=== PATIENT | male | born 1950 | race Caucasian/White ===

== ENCOUNTER → 2017-02-01 | Outpatient (CLI) | payer BC ==
[~2017-02-01] MED LIST: ATV/1 PO; COLC0.6T54 PO; FRS/40 PO; HYDR-4332 PO; INSDGIPEN SQ; MCRK/10 PO; METO50TA7 PO; NAPR220T40 PO; PRED10PA3 PO; TAMS0.4C38 PO
--- NOTE | 2017-02-01 11:41 | DIAGNOSTIC IMAGING REPORT ---
ABDOMEN ULTRASOUND FOR HERNIA CLINICAL HISTORY: R10.30 Groin pain R/o left inguinal hernia- left groin [id number] COMPARISON STUDY: None. FINDINGS: Real-time sonographic imaging of the left groin was performed with policy services representative images submitted. Small fat-containing left inguinal hernia which is partially reducible. No masses or fluid collections within the left groin. IMPRESSION: A partially reducible small fat-containing left inguinal hernia. Electronically signed by: Antony West M.D. 02/01/2017 11:40 AM Dictated Date/Time: 02/01/2017 11:39 AM
== END | disposition home or self-care (01) ==
LOC: C.ULTRBC 11:05
PROVIDERS: ATTEND Surgery
DX: K40.90 Unilateral inguinal hernia, without obstruction or gangrene, not specified as recurrent (principal); R10.30 Lower abdominal pain, unspecified

== ENCOUNTER 2017-03-01 06:30 | Inpatient (IN) | payer BC ==
[2017-02-10 08:31] VITALS: BMI 44.0
--- NOTE | 2017-02-10 09:12 | PAT Medication Instructions ---
Service Date Feb 10, 2017. Current Home Medication List Atorvastatin (Lipitor), 10 MG PO QAM Folic Acid (Folvite), 1 TAB PO QAM Hydrocodone-Acetaminophen (LORTAB 10-325 mg), 1 TAB PO Q6 PRN for Pain Lisinopril (Lisinopril), 1 TAB PO QAM Lorazepam (Ativan), 1 MG PO Q12 PRN for Anxiety/Insomnia Metoprolol Succ (Toprol Xl) (Toprol-Xl), 50 MG PO QAM Naproxen Sodium (Aleve), 220 MG PO DIRECTED Pregabalin (Lyrica), 25 MG PO TID Sitagliptin Phosphate (Januvia), 100 MG PO QAM Tamsulosin Hcl (Flomax), 0.4 MG PO QAM Medication Instructions For Your Scheduled Surgery - Check with surgeon for instructions: Naproxen Sodium (Aleve), 220 MG PO DIRECTED - Hold the following medications the morning of surgery: Folic Acid (Folvite), 1 TAB PO QAM Lisinopril (Lisinopril), 1 TAB PO QAM Sitagliptin Phosphate (Januvia), 100 MG PO QAM Tamsulosin Hcl (Flomax), 0.4 MG PO QAM - Take the following medications the morning of surgery with a sip of water: Pregabalin (Lyrica), 25 MG PO TID Metoprolol Succ (Toprol Xl) (Toprol-Xl), 50 MG PO QAM Lorazepam (Ativan), 1 MG PO Q12 PRN for Anxiety/Insomnia (if needed) Hydrocodone-Acetaminophen (LORTAB 10-325 mg), 1 TAB PO Q6 PRN for Pain (okay to take up to 4 hours prior to surgery if needed) Atorvastatin (Lipitor), 10 MG PO QAM - Take the following medications as scheduled the night before surgery: Pregabalin (Lyrica), 25 MG PO TID Lorazepam (Ativan), 1 MG PO Q12 PRN for Anxiety/Insomnia (if needed) If you have any questions please call us at [phone] or [phone] or [phone]
[2017-02-10 10:02] LABS: BASO % 0.5 %; BASO ABS # 0.02 K/uL (0-0.2); EOS % 1.8 %; EOS ABS # 0.07 K/uL (0-0.5); HEMATOCRIT 32.9 % (42-52); IG# 0.02 K/uL (0.00-0.02); LYMPH % 25.4 %; LYMPH ABS # 0.99 K/uL (1.2-3.4); MEAN CELL VOLUME 99.7 fL (80-100); MEAN CORPUSCULAR HEMOGLOBIN 33.3 pg (25-34); MEAN CORPUSCULAR HGB CONC 33.4 g/dl (32-36); MEAN PLATELET VOLUME 8.4 fL (7.4-10.4); MONO ABS # 0.39 K/uL (0.11-0.59); NEUT % 61.8 %; NEUT ABS # 2.41 K/uL (1.4-6.5); PLATELET COUNT 134 K/uL (130-400); RED CELL DISTRIBUTION WIDTH SD 50.7 fL (36.4-46.3)
[2017-02-10 10:08] LABS: PTT PATIENT 27.7 SECONDS (21.0-31.0)
[2017-02-10 10:29] LABS: CALCIUM 9.1 mg/dl (8.5-10.1); CREATININE 1.57 mg/dl (0.60-1.40); POTASSIUM 5.7 mmol/L (3.5-5.1)
[2017-02-10 10:31] LABS: ALBUMIN 3.2 gm/dl (3.4-5.0); ALKALINE PHOSPHATASE 106 U/L (45-117); ALT/SGPT 83 U/L (12-78); AST/SGOT 71 U/L (15-37); TOTAL PROTEIN 6.4 gm/dl (6.4-8.2)
--- NOTE | 2017-02-28 17:41 | HISTORY & PHYSICAL EXAMINATION ---
DATE OF ADMISSION: 03/01/2017 HISTORY AND PHYSICAL ADMISSION NOTE CHIEF COMPLAINT: Primary osteoarthritis of the left hip. HISTORY OF PRESENT ILLNESS: Martin is a very pleasant 66-year-old male who previously had back surgery by Dr. Díaz and is doing well from that, but now has significant groin pain. He is having a difficult time ambulating. He has missed extensive amount of work due to the discomfort he has in his hip. 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 He is very sharp stabbing sensation deep within his groin. X-rays and clinical examination have been diagnostic for primary osteoarthritis of the left hip. After failing extensive conservative treatment, he has elected to proceed with a left total hip arthroplasty. PAST MEDICAL HISTORY: Significant for non-insulin dependent diabetes, hypertension, sleep apnea and depression, osteoarthritis, and obesity. PAST SURGICAL HISTORY: Significant for a lumbar procedure, carpal tunnels release, and surgery to his knee. ALLERGIES: None. MEDICATIONS: Include Lyrica 20 mg 3 times a day, Januvia daily, metoprolol daily for blood pressure, lisinopril 5 mg daily, Lipitor daily, Ativan 2 times a day, hydrocodone 10/325 as needed, and Flomax daily. FAMILY HISTORY: Noncontributory. SOCIAL HISTORY: He is , has 3 or more drinks a day, has a 10-year history of a half pack a day. He is mostly sedentary. REVIEW OF SYSTEMS: He complains of left hip and groin pain. All other pertinent review of systems is negative. PHYSICAL EXAMINATION: GENERAL: He is awake, alert and oriented x3. He is in no apparent distress. He is very pleasant. HEENT: Pupils equal, round and reactive to light. Extraocular motions intact. Oral mucosa is pink and moist. HEART: Regular rate per radial pulse. LUNGS: Coleen symmetrically bilaterally with no audible breath sounds. ABDOMEN: Soft, nontender, nondistended. MUSCULOSKELETAL: On physical examination of left hip, he ambulates via cane in the office. He does have a mild limp. He has significant pain with forced internal and external rotation of his hip. He has no tenderness to palpation over the greater trochanteric bursa. His leg lengths are equal. IMAGING DATA: X-rays of the left hip do show advanced osteoarthritis with joint space narrowing and osteophyte formation. IMPRESSION: Advanced osteoarthritis of the left hip. PLAN: Will proceed with a Biomet taper lock left total hip arthroplasty. Postoperatively, he will be started on aspirin for DVT prophylaxis and kept in the hospital for postoperative medical management.
[2017-03-01] VITALS (43 sets, daily range): BP systolic 78–203; BP diastolic 53–114; PULSE 57–109; TEMP 36.7–37.5; O2SAT 89–100; Ht 185.4 cm; Wt 151.8 kg
[~2017-03-01] VITALS: Ht 185.4 cm; Wt 151.8 kg
[~2017-03-01 06:30] MED LIST changes: +ACETAMINOPHEN 500 MG TAB PO SCH; +ATOR10TA82 PO; +CEFAZOLIN 3000MG IV PUSH 15 ML IV SCH; -COLC0.6T54 PO; +FAMOTIDINE 20 MG TAB PO SCH; +FOLI1TAB8 PO; -FRS/40 PO; +GABAPENTIN 300 MG CAP PO SCH; -INSDGIPEN SQ; +LACTATED RINGER'S 1000ML 1,000 ML IV SCH; +LACTATED RINGER'S 1000ML 500 ML IV ONE; +LACTATED RINGER'S 1000ML IV SCH; +LSN5 PO; -MCRK/10 PO; -PRED10PA3 PO; +PREG1CAP36 PO; +SITA100T3 PO
[2017-03-01] MEDS ORDERED: BUPIVACAINE 0.5 % 5 MG/1 ML PF 10ML VIAL ONE (06:31)
--- NOTE | 2017-03-01 06:58 | History & Physical Bridge Note ---
H&P Re-Evaluation Bridge Note: I have examined the patient, reviewed the History & Physical and in the interval since the performance of the History & Physical I have noted the following changes of clinical significance: No changes noted
[2017-03-01] MEDS ORDERED: AMIODARONE HCL INJ 50 MG/ML 3 ML VIAL IV ONE (07:21)
[2017-03-01] MEDS ORDERED: DEXTROSE 5% 100 ML BAG IV ONE (07:21)
[2017-03-01] MEDS ORDERED: FENTANYL CITRATE INJ 50 MCG/1 ML 2 ML VIAL ONE ×2 (07:32→14:47)
[2017-03-01] MEDS ORDERED: MIDAZOLAM HCL 1 MG/ML 2ML VIAL ONE ×4 (07:32→14:47)
[2017-03-01] MEDS ORDERED: HYDROmorphone INJ 2 MG/ML SYR/VIAL IV PRN ×2 (08:00)
[2017-03-01] MEDS ORDERED: EpHEDrine SULFATE INJ 50 MG/ML AMP IV PRN ×2 (08:00)
[2017-03-01] MEDS ORDERED: ATROPINE SULFATE 0.1 MG/ML 5ML SYR IV PRN ×2 (08:00)
[2017-03-01] MEDS ORDERED: ONDANSETRON INJ 2 MG/ML 2 ML VIAL IV PRN ×2 (08:00)
[2017-03-01] MEDS ORDERED: PHENYLEPHRINE 100MCG/ML 5ML SYR IV PRN ×2 (08:00)
[2017-03-01] MEDS ORDERED: PROPOFOL IV EMULSION 10 MG/ML 20 ML VIAL IV ONE (08:40)
[2017-03-01] MEDS: TRANEXAMIC ACID INJ 1,000 MG in SYRINGE 0 ML IV SCH ×2 (08:41→16:07)
[2017-03-01] MEDS ORDERED: KETAMINE HCL INJ 50 MG/ML 10 ML VIAL ONE (09:42)
[2017-03-01] MEDS ORDERED: ONDANSETRON INJ 2 MG/ML 2 ML VIAL ONE (09:50)
[2017-03-01] MEDS: ROPIVACAINE 5MG/ML 30 ML 150 MG, BUPIVACAINE 0.5% MPF INJ 30 ML, EpINEphrine HCL INJ 0.... INFIL SCH ×16 (09:57→10:30)
[2017-03-01] MEDS: BACITRACIN 50000 UNIT VIAL ONE ×2 (09:57→10:30)
[2017-03-01] MEDS: ORTHO JOINT ANESTHETIC ONE ×2 (09:57→10:30)
[2017-03-01] MEDS ORDERED: GLYCOPYRROLATE INJ 0.2 MG/ML VIAL ONE (10:36)
[2017-03-01] MEDS ORDERED: RAPID SEQUENCE INDUCTION BAG ONE (10:57)
[2017-03-01] MEDS ORDERED: MIDAZOLAM HCL 5 MG/ML 1 ML VIAL ONE (10:57)
--- NOTE | 2017-03-01 11:39 | OPERATIVE REPORT ---
DATE OF OPERATION: 03/01/2017 PREOPERATIVE DIAGNOSIS: Primary osteoarthritis of the left hip. POSTOPERATIVE DIAGNOSIS: Primary osteoarthritis of the left hip with intraoperative cardiopulmonary event. PROCEDURE: Left total hip arthroplasty; however, the head was removed and the acetabulum was reamed when he went had a cardiopulmonary event and we had to close the wound. SURGEON: Dr. Arian Dee. MANAGED SECURITY SALES CONSULTANT: Kasi Ruiz PA-C, whose assistance was necessary for retraction. ANESTHESIA: Spinal, that was later converted to intubation. COMPLICATIONS: cardiopulmonary event ESTIMATED BLOOD LOSS: Was about 50-100 mL. INDICATIONS: Martin is a 66-year-old male who presented to my office with chronic left hip and groin pain. X-rays and clinical examination were diagnostic for primary osteoarthritis of the left hip. After failing conservative treatment, he elected to undergo a left total hip arthroplasty. OPERATION AND FINDINGS: On 03/01/2017 he arrived at [facility] for the above procedure. He was seen in the preoperative holding area and the operative extremity was identified and signed. He was given a preoperative antibiotic and a spinal anesthetic. He was taken back to the operating room, laid on the table in supine position, given basic sedation. The left hip was then brought out to a Purist leg positioner. The left hip was then prepped and draped in sterile fashion. Time-out was done and the patient and operative extremity was properly identified. An anterior approach was used. Dissection was taken down through the fascia and the tensor was retracted laterally. The rectus was retracted medially. The circumflex vessels were ligated. The capsule was then incised and tagged for later repair. The femoral neck was then resected and the femoral head was removed. The acetabulum was exposed. Sequential reaming up to a size 55 reamer was done. I was getting ready to open the acetabular cup when anesthesia asked me to stop that they were having difficulties. The incision was packed and the drapes were pulled back. He was in ventricular fibrillation. CPR was initiated and he was shocked 3 times. Anesthesia was using epinephrine and other medications to help him. They were able to get him into a more stable rhythm. He was also intubated. Decision was made to abandon the hip replacement surgery and the incision was closed with yannick. Soft dressing was placed. He was then transferred to a bed, a 12-lead EKG was obtained. He was then taken to the ICU. I then spoke with the family with the delivery helper and let them know what was going on. Hopefully, we can place the hip when he is more stable. I attest to the content of the Intraoperative Record and any orders documented therein. Any exceptions are noted below. FRANCHESCA
[2017-03-01] MEDS ORDERED: MIDAZOLAM 125MG/250ML D5W IV ONE (11:42)
[2017-03-01] MEDS ORDERED: FENTANYL CITRATE 1250MCG/250ML NSS ONE (11:44)
[2017-03-01] MEDS ORDERED: GLUCOSE 40% GEL 15 GM TUBE PO PRN ×2 (12:00→13:30)
[2017-03-01] MEDS ORDERED: LEVALBUTEROL 1.25MG/3ML NEB INH PRN (12:00)
[2017-03-01] MEDS ORDERED: DEXTROSE 50% 50 ML SYR IV PRN ×2 (12:00→13:30)
[2017-03-01] MEDS ORDERED: GLUCOSE 10 TABS/TUBE PO PRN ×2 (12:00→13:30)
[2017-03-01] MEDS ORDERED: GLUCAGON FOR INJ 1 MG VIAL SQ PRN ×2 (12:00→13:30)
[2017-03-01] MEDS ORDERED: NORMOSOL R 1,000 ML IV ONE (12:00)
[2017-03-01 12:20] LABS: BASO % 0.1 %; BASO ABS # 0.01 K/uL (0-0.2); EOS % 0.9 %; EOS ABS # 0.07 K/uL (0-0.5); HEMATOCRIT 33.6 % (42-52); HEMOGLOBIN 11.2 g/dL (14.0-18.0); IG# 0.08 K/uL (0.00-0.02); LYMPH % 11.4 %; LYMPH ABS # 0.88 K/uL (1.2-3.4); MEAN CORPUSCULAR HEMOGLOBIN 33.3 pg (25-34); MEAN PLATELET VOLUME 8.7 fL (7.4-10.4); MONO % 7.4 %; MONO ABS # 0.57 K/uL (0.11-0.59); NEUT % 79.2 %; NEUT ABS # 6.14 K/uL (1.4-6.5); PLATELET COUNT 170 K/uL (130-400); RED CELL DISTRIBUTION WIDTH CV 13.6 % (11.5-14.5); RED CELL DISTRIBUTION WIDTH SD 49.1 fL (36.4-46.3); WHITE BLOOD COUNT 7.75 K/uL (4.8-10.8)
[2017-03-01 12:24] LABS: MEAN CORPUSCULAR HGB CONC 33.3 g/dl (32-36)
[2017-03-01 12:29] LABS: PTT PATIENT 25.7 SECONDS (21.0-31.0)
[2017-03-01] MEDS ORDERED: PHARMACY GLYCEMIC MGMT CONSULT PRN (12:30)
--- NOTE | 2017-03-01 12:45 | Critical Care Consultation ---
Critical Care Consultation Date of Consultation: Mar 01, 2017. Attending Physician: Arian Dee DO Reason for Consultation: Cardiac Arrest History of Present Illness Called to the OR for cardiac arrest. Was undergoing left DANY and subsequently suffered an arrest. CPR was started. He was intubated. Given several does of epinephrine and defibrillated. 300mg of Amiodarone was given. A sinus rhythm with a RBBB with review of the telemetry. No acute ischemia suggested with the initial EKG. The procedure was aborted with the wound closed. The femoral head has been removed and the procedure not completed. He was transferred to the ICU for additional care. He is sedated and intubated. The records available have been reviewed. Underlying issues noted. Past Medical/Surgical History -Pseudogout -DM -Morbid Obesity -HTN Tobacco Abuse -Alcohol Abuse--1/2 bottle rum daily reported -Routine Narcotic Use-- Social History Smoking Status: Current Every Day Smoker Allergies Coded Allergies: No Known Allergies (Verified , 03/01/17) Home Medications Scheduled Atorvastatin (Lipitor), 10 MG PO QAM Folic Acid (Folvite), 1 TAB PO QAM Metoprolol Succ (Toprol Xl) (Toprol-Xl), 50 MG PO QAM Naproxen Sodium (Aleve), 220 MG PO DIRECTED Pregabalin (Lyrica), 25 MG PO TID Sitagliptin Phosphate (Januvia), 100 MG PO QAM Tamsulosin Hcl (Flomax), 0.4 MG PO QAM Scheduled PRN Hydrocodone-Acetaminophen (LORTAB 10-325 mg), 1 TAB PO Q6 PRN for Pain Lorazepam (Ativan), 1 MG PO Q12 PRN for Anxiety/Insomnia Current Inpatient Medications Current Inpatient Medications Medications (Trade) Dose Ordered Sig/Sujey Route Start Time Stop Time Status Last Admin Dose Admin Ropivacaine 150 mg/Bupivacaine HCl 30 ml/ Epinephrine HCl 0.15 mg/Ketorolac Tromethamine 30 mg/Dexamethasone Sodium Phosphate 4 mg/Ketamine HCl 10 mg/Clonidine 100 mcg/Sodium Chloride 93.35 ml @ 0 mls/hr TODAY@06 INFIL 03/01/17 06:00 03/01/17 15:00 Lactated Ringer's 1,000 ml @ 60 mls/hr [id number] IV 03/01/17 06:00 03/01/17 22:39 Cefazolin Sodium 15 ml @ 3 mls/min PREOP IV 03/01/17 06:00 03/01/17 18:00 03/01/17 09:19 3 MLS/MIN Acetaminophen (Tylenol Tab) 1,000 mg PREOP PO 03/01/17 06:00 03/01/17 18:00 03/01/17 07:08 1,000 MG Famotidine (Pepcid Tab) 20 mg PREOP PO 03/01/17 06:00 03/01/17 18:00 03/01/17 07:08 20 MG Gabapentin (Neurontin Cap) 600 mg PREOP PO 03/01/17 06:00 03/01/17 18:00 Tranexamic Acid 1000 mg/Syringe 10 ml @ 1 mls/min TODAY@06,0630 IV 03/01/17 06:00 03/01/17 15:00 03/01/17 08:41 1 MLS/MIN Lactated Ringer's 1,000 ml @ 15 mls/hr Q24H IV 03/01/17 06:00 03/02/17 05:59 Hydromorphone HCl (Dilaudid Inj) 0.5 mg Q5M PRN IV 03/01/17 08:00 03/01/17 13:00 Ondansetron HCl (Zofran Inj) 4 mg ONE PRN IV 03/01/17 08:00 03/01/17 13:00 Ephedrine Sulfate (EpHEDrine SULFATE INJ) 5 mg Q5M PRN IV 03/01/17 08:00 03/01/17 13:00 Atropine Sulfate (Atropine Sulfate 0.1MG/Ml Inj) 0.5 mg Q1M PRN IV 03/01/17 08:00 03/01/17 13:00 Phenylephrine HCl (Chan-Synephrine 500MCG/5ML Syr) 100 mcg Q5M PRN IV 03/01/17 08:00 03/01/17 13:00 Midazolam HCl 250 ml @ 0 mls/hr Q0M PRN IV 03/01/17 11:44 03/31/17 11:43 Fentanyl Citrate 250 ml @ 0 mls/hr Q0M PRN IV 03/01/17 11:45 03/15/17 11:44 Parenteral Electrolyte Solution 1,000 ml @ 999 mls/hr Q1H1M ONCE IV 03/01/17 12:00 03/01/17 13:00 Levalbuterol (Xopenex 1.25MG/ 3ML Neb) 1.25 mg Q4 PRN INH 03/01/17 12:00 03/31/17 11:59 UNV Pantoprazole Sodium 40 mg/ Syringe 10 ml @ 5 mls/min DAILY IV 03/02/17 09:00 04/01/17 08:59 UNV Glucose (Glucose 40% Gel) 15-30 GRAMS 15 GRAMS... UD PRN PO 03/01/17 12:00 03/31/17 11:59 UNV Glucose (Glucose Chew Tab) 4-8 Tablets 4 Tabl... UD PRN PO 03/01/17 12:00 03/31/17 11:59 UNV Dextrose (Dextrose 50% 50ML Syringe) 25-50ML OF 50% DW IV FOR... UD PRN IV 03/01/17 12:00 03/31/17 11:59 UNV Glucagon (Glucagon Inj) 1 mg UD PRN SQ 03/01/17 12:00 03/31/17 11:59 UNV Miscellaneous Information (Consult Glycemic Management Pharmacy) 1 ea NOW STAT N/A 03/01/17 11:59 03/01/17 12:00 UNV Review of Systems unavailable given his sedation/arrest Physical Exam Date Time Temp Pulse Resp B/P (MAP) Pulse Ox O2 Delivery O2 Flow Rate FiO2 03/01/17 10:50 100 03/01/17 07:15 36.9 89 20 178/79 97 Room Air Morbidly Obese Man with ETT and Left Hip Surgical Wound--starting to arouse and move all ext. HEENT--no acute findings suggested Respiratory--exchange is ok Cardio--palpable pulse in neck and femoral positions--heart tones distant GI- active --Garcia place to gravity after the ICU admit Musculo---as noted regarding the left femur Neuro--moving all ext Derm--no active pathology suggested Psych--no obtainable + Laboratory Results Last 24 Hours Test 03/01/17 06:55 03/01/17 11:47 03/01/17 12:03 Bedside Glucose 179 mg/dl Creatine Kinase MB Ratio Diagnostic Results Echo/Doppler/Labs/CXR all pending Assessment & Plan Obesity/DM/HTN/Hyperlipidemia/Arthritis/ETOH/Tobacco/--DANY with intraoperative arrest..Consideration includes fat embolism, ischemia,arrhythmia. 1. Cardio--will obtain appropriate studies and cardiology assistance. Beta vega and appropriate supportive measures. I/O's. 2. Pulmonary--vent support--longstanding tobacco use noted. 3. Neuro--will require sedation during ventilation--moving all ext and somewhat combative. 4. GI--OG tube 5. F/E/N--will optimize labs and fluid status 6. Musculoskeletal--will talk with anesthesia and orthopedics regarding timing of completion of the procedure. 7. Endo--insulin and general supportive measures. -
[2017-03-01 12:49] LABS: CALCIUM 8.8 mg/dl (8.5-10.1); CREATININE 1.37 mg/dl (0.60-1.40); POTASSIUM 4.9 mmol/L (3.5-5.1)
[2017-03-01 12:53] LABS: ALBUMIN 2.8 gm/dl (3.4-5.0); CALCIUM 8.4 mg/dl (8.5-10.1); CREATININE 1.35 mg/dl (0.60-1.40); POTASSIUM 4.9 mmol/L (3.5-5.1)
[2017-03-01 12:55] LABS: TOTAL PROTEIN 6.2 gm/dl (6.4-8.2)
[2017-03-01] MEDS ORDERED: DexMEDEtomidine HCL IV 200 MCG in SODIUM CHLORIDE 0.9% 50ML 48 ML IV PRN (13:07)
[2017-03-01] MEDS ORDERED: METOPROLOL TARTRATE 1 MG/ML VIAL ONE ×2 (13:28→14:31)
[2017-03-01] MEDS ORDERED: INSULIN GLARGINE SOLOSTAR 100 UNITS/ML 3 ML PEN SC ONE (13:30)
[2017-03-01] MEDS ORDERED: INSULIN HUMAN REGULAR PER UNIT 6 UNITS in SYRINGE 5.94 ML IV ONE (13:30)
--- NOTE | 2017-03-01 14:01 | ECHOCARDIOGRAM REPORT ---
*NOTICE TO RECEIVING [employer] This information is strictly Confidential and protected under [place] law. [place] law prohibits you from making any further disclosure of this information unless further disclosure is expressly permitted by the written consent of the person to whom it pertains or is authorized by law. A general authorization for the release of medical or other information is not sufficient for this purpose. Hospital accepts no responsibility if the information is made available to any other person, INCLUDING THE PATIENT. Interpretation Summary * Name: SLY POOLE Study Date: 03/01/2017 12:06 PM BP: 92/59 mmHg * Patient Location: .MSICU\S\E112\S\1 HR: 85 * : 1950 (M/d/yyy) Gender: Male Height: 71 in * Age: 66 yrs Ethnicity: CA Weight: 335 lb * Ordering Physician: Raghavendra Hensley * Referring Physician: Arian Dee * Performed By: Nadeen Cevallos RCS * * Reason For Study: Pulm. HTN * BSA: 2.6 m2 * -- Conclusions -- * The left ventricle is normal in size. * There is mild concentric left ventricular hypertrophy. * No regional wall motion abnormalities noted. * Ejection Fraction = 65-70%. * The study was technically difficult. * A contrast injection of Definity was performed to improve assessment of LV function. * Aortic valve sclerosis mild, without significant aortic valvular stenosis. * There is trace tricuspid regurgitation. * Right ventricular systolic pressure is elevated at 50-60mmHg. Procedure Details * A complete two-dimensional transthoracic echocardiogram was performed (2D, M-mode, Doppler and color flow Doppler). * The study was technically difficult. * There were technical limitations due to patient'ssupine positioning while on mechanical ventilation * A contrast injection of Definity was performed to improve assessment of LV function. * A contrast injection of Definity was performed to improve assessment for apical thrombus. * Contrast was injected into an intravenous site in the central line. * One vial of Definity ultrasound contrast was diluted in normal saline to a total volume of 10 ml. A total of '1' ml of solution was administered during imaging. * Lot # [id number] of Definity utilized for procedure. * Expiration date 1DEC18. * The attending nurse who injected the contrast agent was Angie Presley RN. Left Ventricle * The left ventricle is normal in size. * There is mild concentric left ventricular hypertrophy. * Ejection Fraction = 65-70%. * No regional wall motion abnormalities noted. Right Ventricle * The right ventricle is grossly normal size. Atria * Borderline left atrial enlargement. * Right atrial size is normal. Mitral Valve * The mitral valve is not well visualized. Tricuspid Valve * The tricuspid valve is not well visualized, but is grossly normal. * There is trace tricuspid regurgitation. * Right ventricular systolic pressure is elevated at 50-60mmHg. Aortic Valve * The aortic valve is not well visualized. * Aortic valve sclerosis mild, without significant aortic valvular stenosis. Great Vessels * The aortic root is normal size. * The inferior vena cava is mildly dilated. MMode 2D Measurements and Calculations IVSd 1.3 cm IVSs 1.8 cm LVIDd 5.5 cm LVIDs 3.5 cm LVPWd 1.2 cm LVPWs 1.6 cm IVS/LVPW 1.1 FS 36.6 % EDV(Teich) 145.6 ml ESV(Teich) 49.7 ml EF(Teich) 65.9 % EDV(cubed) 163.7 ml ESV(cubed) 41.7 ml EF(cubed) 74.5 % % IVS thick 36.3 % % LVPW thick 27.5 % LV mass(C)d 292.8 grams LV mass(C)dI 111.5 grams/m\S\2 LV mass(C)s 230.5 grams LV mass(C)sI 87.8 grams/m\S\2 SV(Teich) 95.9 ml SI(Teich) 36.5 ml/m\S\2 SV(cubed) 122.0 ml SI(cubed) 46.5 ml/m\S\2 Ao root diam 4.4 cm Ao root area 15.1 cm\S\2 ACS 1.7 cm LA dimension 4.2 cm asc Aorta Diam 3.5 cm LA/Ao 0.95 EDV(MOD-sp4) 136.5 ml ESV(MOD-sp4) 43.2 ml EF(MOD-sp4) 68.3 % EDV(MOD-sp2) 155.3 ml ESV(MOD-sp2) 37.3 ml EF(MOD-sp2) 76.0 % SV(MOD-sp4) 93.3 ml SI(MOD-sp4) 35.5 ml/m\S\2 SV(MOD-sp2) 118.0 ml SI(MOD-sp2) 45.0 ml/m\S\2 Doppler Measurements and Calculations MV E max anthony 109.1 cm/sec MV A max anthony 91.6 cm/sec MV E/A 1.2 MV P1/2t max anthony 99.8 cm/sec MV P1/2t 75.8 msec MVA(P1/2t) 2.9 cm\S\2 MV dec slope 385.4 cm/sec\S\2 MV dec time 0.23 sec Ao V2 max 172.6 cm/sec Ao max PG 11.9 mmHg Ao max PG (full) 6.9 mmHg LV V1 max PG 5.0 mmHg LV V1 max 111.7 cm/sec PA V2 max 135.4 cm/sec PA max PG 7.3 mmHg TR max anthony 365.6 cm/sec
--- NOTE | 2017-03-01 14:09 | Pharmacy Progress Note ---
Glycemic Control Intl Consult Date of Service Mar 01, 2017. Scope Glycemic Pharmacist consulted by Dr Hensley on 03/01/17 for glycemic control and to write orders per [facility] inpatient glycemic control protocol Objective Weight (Kilograms): 152.20 Accuchecks BSG (last 24hrs): Test 03/01/17 06:55 03/01/17 12:03 Bedside Glucose 179 mg/dl (70-99) Random Glucose 200 mg/dl (70-99) Laboratory Data (last 24hrs) Test 03/01/17 12:03 Anion Gap 8.0 mmol/L BUN/Creatinine Ratio 16.9 Blood Urea Nitrogen 23 mg/dl Creatinine 1.35 mg/dl Potassium Level 4.9 mmol/L Sodium Level 136 mmol/L White Blood Count 7.75 K/uL Red Blood Count 3.36 M/uL Hemoglobin 11.2 g/dL Hematocrit 33.6 % Mean Corpuscular Volume 100.0 fL Mean Corpuscular Hemoglobin 33.3 pg Mean Corpuscular Hemoglobin Concent 33.3 g/dl Platelet Count 170 K/uL Mean Platelet Volume 8.7 fL Neutrophils (%) (Auto) 79.2 % Lymphocytes (%) (Auto) 11.4 % Monocytes (%) (Auto) 7.4 % Eosinophils (%) (Auto) 0.9 % Basophils (%) (Auto) 0.1 % Neutrophils # (Auto) 6.14 K/uL Lymphocytes # (Auto) 0.88 K/uL Monocytes # (Auto) 0.57 K/uL Eosinophils # (Auto) 0.07 K/uL Basophils # (Auto) 0.01 K/uL Recent Pertinent Medications Outpatient Anti-diabetic Regimen (per preadmission med reconciliation): * Sitagliptin 100mg PO Q AM * A1c = 6.6 % Apr 2015 * Non-compliance reported Risk Factors for Insulin Resistance: * Steroids: may have received Dexamethasone 4mg in yves-articular injection today * IVF: currently ordered LR * Recent Surgery: POD # 0; L total hip arthroplasty, however surgery cut short due to intra-op arrest * Diet: NPO * Mechanical Ventilation: yes Assessment & Plan ASSESSMENT: 03/01/17 * Type 2 diabetic admitted to ICU today following intra-op v. fib arrest following bradycardia * Patient had been in OR for DANY, surgery interrupted during arrest, resuscitated and transferred to ICU for stabilization * Currently he is intubated, receiving multiple sedatives / analgesic infusions * 1st set of ICU labs showed GLU 200 * Will begin a basal / bolus SQ regimen at this time based upon weight and mod- severe stressors; a small IV bolus of Reg Insulin will help obtain glycemic goal more quickly until basal and rapid acting SQ begin to take effect PLAN FOR INPATIENT GLYCEMIC CONTROL: * Check A1c with next set of labs * Regular insulin 6 units SQ x 1 * Lantus 25 units SQ x 1, then BID based upon the following scale * BSG less than 110 give 0 units * BSG 110 - 160 give 15 units * BSG above 160 give 25 units * Novolog Q 4 hrs * Correction factor 15 mg/dl/unit * Carb ratio 1 unit per 5 grams CHO consumed * Goal range Low 140 mg/dL - High 170 mg/dL * Please note that the plan above was derived based on current level of insulin resistance and hospital stress. These recommendations are appropriate for inpatient admission only. Plan of care upon discharge will need to be reassessed to avoid potential outpatient hypo/hyperglycemia. Thank you.
[2017-03-01] MEDS ORDERED: METOPROLOL TARTRATE 1 MG/ML VIAL IV STA (14:30)
[2017-03-01] MEDS ORDERED: CISATRACURIUM BESYLATE IV SOLN 2 MG/ML 10 ML VIAL ONE (14:47)
--- NOTE | 2017-03-01 14:47 | DIAGNOSTIC IMAGING REPORT ---
CHEST ONE VIEW PORTABLE HISTORY: Respiratory arrest. ventilator COMPARISON: Chest 02/10/2015. FINDINGS: The endotracheal tube is approximately 8.3 cm from the saundra. Nasogastric tube terminus below the diaphragm. The tip is not included on this study. There is mild perihilar interstitial vascular thickening consistent with mild congestive change. The heart remains enlarged. There is volume loss within the right hemithorax with right paramediastinal increased density/consolidation. This is concerning for collapse of the right upper and middle lobes. No pneumothorax. IMPRESSION: 1. The endotracheal tube terminates 8.3 centers in the saundra. This should be advanced by proximal 5 cm. 2. Interval development of volume loss within the right hemithorax with right paramediastinal opacity. This likely represents multilobar collapse possibly due to mucous plugging. Bronchoscopy is recommended for further evaluation. In addition, chest CT can be performed for further evaluation. 3. These findings were discussed with the patient's physician assistant floor covering printer, Anam Shabazz, at 2:45 PM on 03/01/2017. Electronically signed by: Antony West M.D. 03/01/2017 2:45 PM Dictated Date/Time: 03/01/2017 2:41 PM
--- NOTE | 2017-03-01 15:09 | DIAGNOSTIC IMAGING REPORT ---
BILATERAL LOWER EXTREMITY VENOUS DOPPLER HISTORY: Acute pain and swelling of the bilateral lower extremities DVT COMPARISON STUDY: None. FINDINGS: There is normal compressibility, flow, and augmentation within the bilateral lower extremity deep venous systems. Incidental note is made of mildly complex centrally cystic structure of the posterior left knee, 4.3 x 1.6 x 4.2 cm suggesting Manley's cyst. IMPRESSION: 1. No sonographic evidence of deep venous thrombosis within the right or left lower extremity. 2. 4.3 cm left Manley's cyst. Electronically signed by: Anil Michelle M.D. 03/01/2017 3:07 PM Dictated Date/Time: 03/01/2017 3:06 PM
--- NOTE | 2017-03-01 15:24 | CARDIOLOGY CONSULTATION ---
DATE OF CONSULTATION: 03/01/2017 DATE OF CONSULTATION: 03/01/2017 REFERRING: Dr. Arian Dee, Dr. Jaimes. PRIMARY CARE PHYSICIAN: Dr. Mauricio. INDICATIONS: Cardiac arrhythmia intraoperatively. Note, the patient was initially assessed at 12:15 p.m. He is reassessed again at 2:11 p.m. with care during the interim. HISTORY OF PRESENT ILLNESS: The patient is a 66-year-old male currently intubated in the intensive care unit, unable to offer additional information. Data gleaned from review of records and hospital events. His history is notable for underlying medical problems of diabetes, obesity, hypertension, past history of depressive disorder, history of heavy tobacco and alcohol use including day of the procedure. Today, the patient presented for hip replacement intraoperatively during surgical manipulation and became transiently bradycardic, unresponsive to ropinirole x2 and then became hypotensive with poor pulses and oxygenation. The patient had received conscious sedation. The patient was begun on cardiac compressions as well as received IV epinephrine. Rhythms notable for a wide complex tachycardia on monitor. Defibrillator was placed and after several salvos of compressions and IV epinephrine received 2 synchronized electrical cardioversion shocks at 360 joules with little change in rhythm. He received 300 mg IV amiodarone with gradual slowing of heart. Surgical incision was closed without hip repair with femur head removed. He was transferred to the intensive care unit in an intubated status. Initial evaluation in the intensive care unit revealed on telemetry, sinus rhythm with right bundle branch block configuration, occasional ventricular ectopic beats. The patient required significant sedation to manage airway, but upon receiving sedation and appropriate intubation and oxygenation became normal to hypertensive. He is referred now for further management from cardiac standpoint. No additional information was able to be obtained per records reviewed. The patient has no prior history of cardiac disease or cardiac arrhythmia. PAST MEDICAL HISTORY: As described, diabetes mellitus, hypertension, obesity, heavy tobacco and alcohol use and hyperlipidemia. ALLERGIES: Listed as none. MEDICATIONS: Prior to hospitalization per records included atorvastatin 10 mg q.a.m., folic acid 1 mg q.a.m., lorazepam 1 mg q. 12 hours, metoprolol XL 50 mg q.a.m., Lyrica 25 t.i.d., Januvia 100 mg q.a.m., Flomax 0.5 mg q.a.m. PAST MEDICAL HISTORY: In addition to above, also includes a history of chronic narcotic use, degenerative joint disease, pseudogout and osteoarthritis. PAST SURGICAL HISTORY: Notable for back surgery for spinal stenosis per records. FAMILY HISTORY: Notable for diabetes, stroke, asthma. SOCIAL HISTORY: The patient is a 1/2 pack per day smoker daily, heavy alcohol user per family recollection. PHYSICAL EXAMINATION: GENERAL: The patient is a morbidly obese, age-appropriate male, lying supine and intubated in intensive care unit adequately sedated. VITAL SIGNS: Heart rate is 96, blood pressure is 168/90. HEAD, EYES, EARS, NOSE, AND THROAT: Normocephalic, atraumatic. NECK: Thick. There is no distinct jugular venous distention. EXTREMITIES: Without cyanosis or clubbing. There is 1-2+, left leg edema comparison to the right. There are intact distal pulses. DATA: EKG as described in the HPI initially on first study available at 10:36:05 demonstrates sinus rhythm with frequent ventricular ectopic beat. Right bundle branch block configuration, rate 94 beats per minute. Second EKG at 11:59 reveals sinus rhythm with first degree AV block, right bundle branch block configuration. Echocardiogram performed at bedside currently and in my review reveals normal to hyperdynamic LV function, EF 65-70% without wall motion abnormality. The study is technically limited though contrast was administered with adequate evaluation. There is no severe aortic stenosis. There is no significant valvular insufficiency. Tricuspid valve regurgitant velocity suggested elevated pulmonary pressures. LABORATORY STUDIES: Initial troponin 0.28. Albumin is 3.2 preoperatively and currently 2.8, AST and ALT are elevated at 138 and 95, alkaline phosphatase is 122. Sodium is 136, potassium is 4.9, chloride is 103, bicarbonate 25, BUN is 23, creatinine is 1.35, hemoglobin is 11.2. Blood gas on presentation revealed pH 7.3, pCO2 of 56, pO2 of 364. Chest x-ray is pending. IMPRESSION: Complex 66-year-old male who presented today for elective hip replacement, multiple underlying morbidities as noted but no prior defined ischemic heart disease or LV dysfunction who suffered intraoperative arrhythmia initially bradycardic followed by tachyarrhythmias with conduction changes. Review of rhythm strips suggest a wide complex tachycardia with right bundle branch configuration. Findings may represent ventricular tachycardia but more likely on interrogation reflected sinus tachycardia versus AFib flutter with elevated ventricular response rate. He is now in sinus rhythm, hemodynamically stable. Blood pressures and patient intubated. Etiology likely multifactorial considerations, acute ischemic change is not defined by LV function, though underlying ischemic strain not excluded and likely will see rise in troponins. Discussed options of management. At this point in time will increase beta blockers for rate and blood pressure control, maintain intubation. Issues upcoming include ongoing issue with hip incision and femoral head removal. Findings would limit any cardiac investigation or management including anticoagulation or antiplatelet therapy. Findings do not suggest acute myocardial infarction by exam and history and echocardiogram suggesting arrhythmic event likely multifactorial. Issues are raised regarding patient's pulmonary status, underlying sleep apnea. Considerations and possible obvious risk for fat emboli though less likely by history. Will plan on continuing IV metoprolol, sedation and ventilation. Will discuss with anesthesia and surgery regarding timing of completion of surgical intervention before extubation. The patient remains at high risk given underlying pulmonary issues and alcohol use with elkin course expected. Will continue to follow in hospital.
--- NOTE | 2017-03-01 15:49 | Anesthesiology Progress Note ---
Anesthesia Post Op Note Date & Time Mar 01, 2017 at 15:29 Vital Signs Pain Intensity: 0 Vital Signs Past 12 Hours Date Time Temp Pulse Resp B/P (MAP) Pulse Ox O2 Delivery O2 Flow Rate FiO2 03/01/17 15:00 101 201/83 03/01/17 14:59 141 201/83 03/01/17 14:00 80 21 03/01/17 13:53 101 169/104 03/01/17 13:31 86 18 181/107 (127) 99 03/01/17 13:30 92 18 03/01/17 13:26 93 19 166/106 (122) 97 03/01/17 13:21 100 18 203/113 (145) 98 03/01/17 13:16 96 17 175/114 (126) 99 03/01/17 13:11 95 16 161/96 (110) 98 03/01/17 13:06 106 17 189/107 (138) 96 03/01/17 13:00 109 22 96 03/01/17 12:51 87 16 143/87 (100) 99 03/01/17 12:46 87 21 149/92 (106) 99 03/01/17 12:41 88 17 154/87 (107) 99 03/01/17 12:36 88 17 155/88 (100) 99 03/01/17 12:31 89 19 148/87 (108) 98 03/01/17 12:30 88 19 98 03/01/17 12:25 92 22 150/86 (99) 98 03/01/17 12:21 92 23 133/83 (107) 98 03/01/17 12:16 97 22 120/86 (99) 97 03/01/17 12:06 97 16 177/95 (131) 100 03/01/17 12:01 92 18 170/101 (124) 100 03/01/17 12:00 50 03/01/17 12:00 91 19 03/01/17 11:30 36.7 85 16 78/53 99 03/01/17 11:20 85 16 92/59 (71) 99 Mechanical Ventilator 50 03/01/17 11:10 78 19 81/52 (62) 100 Mechanical Ventilator 100 03/01/17 11:00 81 17 83/56 (73) 100 Mechanical Ventilator 100 03/01/17 10:50 100 03/01/17 10:50 36.7 88 19 85/58 (70) 100 Mechanical Ventilator 100 03/01/17 07:15 36.9 89 20 178/79 97 Room Air Notes Mental Status: see Notes Airway Patency, RR, SpO2: see Notes BP & HR: see Notes The patient was stable from the time the spinal was placed until the femoral head was sawed and removed. He was in sinus rhythm with a rate in the 60s when his rate dropped to 40 and he was given 0.4 mg of glycopyrrolate. He did not respond and his rate dropped to 30.At this point the 02 sat stopped registering. I was called back to the room and I ran there from ASU II. When I arrived he was in full arrest and chest compressions were beginning. The homicide squad captain was attempting to intubate the patient with some difficulty and we stopped the attempt and bagged the patient. After two minutes she intubated while checking the rhythm. In total there were four rounds of two minute chest compressions. The patient was given four grams of epinephrine total. He was shocked twice without return to what appeared to be sinus rhythm. He appeared to be in V-Tac. He did have a carotid pulse. He was given 300 mg of amiodarone and his rate slowed from 160 to 111 sinus tac and his pressure stabilized at around 130 systolic. The intensivists were present for the last half of the code and he was transferred intubated to the ICU where he continued to do well.
--- NOTE | 2017-03-01 15:50 | Procedure Note ---
Procedure Note Procedure Date Mar 01, 2017. Procedure Description Procedure Name: Suction Bronchoscopy Consent obtained: written Time of procedure: 15:40 Performed by: attending Indications: therapeutic Contraindications: none Description: The ET tube placement was checked and adjusted. The right and left mainstem bronchus was visualized. The right middle and upper lobe was visualized and lavage performed. Some thick mucous was removed. The procedure was well tolerated. CXR obtained. Complications: none Patient tolerated procedure: well Post-procedure vital signs: reviewed and stable Comments: post procedure CXR looking some better with better middle lobe showing better aeration.
--- NOTE | 2017-03-01 15:52 | Procedure Note ---
Procedure Note Procedure Date Mar 01, 2017. Procedure Description Procedure Name: Right Femoral Central Line Procedure time out: side/site verified, patient ID confirmed, correct procedure Consent obtained: emergent consent implied Time of procedure: 12:00 Performed by: attending Indications: therapeutic (need for dependable access for medications) Contraindications: none Description: The femoral vein and artery noted on ultrasound. The vein was identified and a triple lumen catheter inserted using the over the wire technique The line was secured and lines demonstrated easy return and flush. Complications: none Patient tolerated procedure: well Post-procedure vital signs: reviewed and stable
--- NOTE | 2017-03-01 15:54 | DIAGNOSTIC IMAGING REPORT ---
CHEST ONE VIEW PORTABLE CLINICAL HISTORY: post bronchoscopy dyspnea COMPARISON STUDY: 03/01/2017 FINDINGS: Endotracheal tube 4 cm above the saundra. Persistent cardiac enlargement. Unchanging parenchymal infiltrate left base. Mild mid to superior mediastinal fullness unchanged. IMPRESSION: 1. Endotracheal tube 4 cm above the saundra. 2. Unchanging fullness of the cardiomediastinal silhouette. 3. Unchanging parenchymal infiltrate left base. The above report was generated using voice recognition software. It may contain grammatical, syntax or spelling errors. Electronically signed by: Blake Brady M.D. 03/01/2017 3:53 PM Dictated Date/Time: 03/01/2017 3:51 PM
[2017-03-01] MEDS: INSULIN ASPART 100 UNITS/ML 3 ML PEN SC SCH ×3 (16:52→23:29)
[2017-03-01 18:08] LABS: HEMATOCRIT 31.2 % (42-52); HEMOGLOBIN 10.3 g/dL (14.0-18.0)
[2017-03-01] MEDS: METOPROLOL TARTRATE 1 MG/ML VIAL IV. SCH ×2 (19:18→22:36)
[2017-03-01] MEDS: DexMEDEtomidine HCL IV 400 MCG in SODIUM CHLORIDE 0.9% 100ML 96 ML IV PRN (19:24)
[2017-03-01] MEDS: FENTANYL 1250MCG/250ML NSS 250 ML IV PRN (19:25)
[2017-03-01] MEDS ORDERED: NURSING VERBAL MED ORDER ONE (20:45)
[2017-03-01] MEDS: INSULIN GLARGINE SOLOSTAR 100 UNITS/ML 3 ML PEN SC SCH (21:07)
[2017-03-01] MEDS: NORMOSOL R 1,000 ML IV SCH (21:08)
[2017-03-01 23:27] LABS: HEMATOCRIT 31.9 % (42-52); HEMOGLOBIN 10.4 g/dL (14.0-18.0)
[2017-03-02] VITALS (20 sets, daily range): BP systolic 95–190; BP diastolic 55–96; PULSE 51–68; TEMP 36.9–38; O2SAT 93–100
[2017-03-02] MEDS ORDERED: NURSING VERBAL MED ORDER ONE ×2 (00:15→20:15)
[2017-03-02] MEDS ORDERED: ACETAMINOPHEN IV 1000MG/100ML IV PRN (01:00)
[2017-03-02] MEDS: METOPROLOL TARTRATE 1 MG/ML VIAL IV. SCH ×4 (01:24→18:51)
[2017-03-02] MEDS: FENTANYL 1250MCG/250ML NSS 250 ML IV PRN ×3 (02:46→20:17)
[2017-03-02] MEDS: MIDAZOLAM 125MG/250ML D5W 250 ML IV PRN ×2 (02:46→20:17)
[2017-03-02] MEDS: DexMEDEtomidine HCL IV 400 MCG in SODIUM CHLORIDE 0.9% 100ML 96 ML IV PRN ×2 (02:54→12:40)
[2017-03-02] MEDS ORDERED: HydrALAZINE HCL 20 MG/ML VIAL IV. STA (03:47)
[2017-03-02] MEDS: INSULIN ASPART 100 UNITS/ML 3 ML PEN SC SCH ×5 (04:00→20:00)
[2017-03-02 05:43] LABS: BASO % 0.1 %; BASO ABS # 0.01 K/uL (0-0.2); EOS % 0.3 %; EOS ABS # 0.03 K/uL (0-0.5); HEMATOCRIT 31.9 % (42-52); HEMOGLOBIN 10.4 g/dL (14.0-18.0); IG# 0.02 K/uL (0.00-0.02); LYMPH % 9.9 %; LYMPH ABS # 0.86 K/uL (1.2-3.4); MEAN CELL VOLUME 99.1 fL (80-100); MEAN CORPUSCULAR HEMOGLOBIN 32.3 pg (25-34); MEAN CORPUSCULAR HGB CONC 32.6 g/dl (32-36); MEAN PLATELET VOLUME 8.9 fL (7.4-10.4); MONO % 6.9 %; NEUT % 82.6 %; NEUT ABS # 7.16 K/uL (1.4-6.5); PLATELET COUNT 145 K/uL (130-400); RED CELL DISTRIBUTION WIDTH CV 13.7 % (11.5-14.5); RED CELL DISTRIBUTION WIDTH SD 48.9 fL (36.4-46.3); WHITE BLOOD COUNT 8.68 K/uL (4.8-10.8)
[2017-03-02 06:16] LABS: CALCIUM 7.7 mg/dl (8.5-10.1); CREATININE 1.27 mg/dl (0.60-1.40); PHOSPHORUS 2.4 mg/dl (2.5-4.9)
[2017-03-02] MEDS: NORMOSOL R 1,000 ML IV SCH ×2 (06:20→18:51)
[2017-03-02 06:39] LABS: HEMOGLOBIN A1C 7.8 % (4.5-5.6)
[2017-03-02] MEDS ORDERED: SODIUM PHOSPHATE 3 MMOL/1 ML INFUSION IV STA (06:40)
--- NOTE | 2017-03-02 07:05 | DIAGNOSTIC IMAGING REPORT ---
CHEST ONE VIEW PORTABLE CLINICAL HISTORY: Intubated tube position COMPARISON STUDY: 03/01/2017 FINDINGS: Limited study technically due to patient respiratory and somatic motion. Endotracheal tube 4 cm both saundra. Nasogastric tube most likely in the region of the stomach. Moderate stable cardiomegaly. Bibasilar atelectatic change. Mid and upper lungs are clear. IMPRESSION: Endotracheal tube 4 cm both saundra. Stable cardiomegaly. Unchanging bibasilar atelectatic and/or infiltrative change. Technically limited study due to patient motion as well as body habitus The above report was generated using voice recognition software. It may contain grammatical, syntax or spelling errors. Electronically signed by: Blake Brady M.D. 03/02/2017 7:03 AM Dictated Date/Time: 03/02/2017 7:01 AM
[2017-03-02] MEDS ORDERED: SODIUM PHOSPHATE INJ 15 MMOL in SODIUM CHLORIDE 0.9% 250ML 250 ML IV ONE (07:30)
[2017-03-02] MEDS: MAGNESIUM SULFATE 1GM / D5W 1 GM in PREMIXED IN D5W 100 ML IV SCH ×2 (07:56→09:01)
[2017-03-02] MEDS: PANTOprazole INJ 40 MG in SYRINGE 0 ML IV SCH (07:58)
[2017-03-02] MEDS: INSULIN GLARGINE SOLOSTAR 100 UNITS/ML 3 ML PEN SC SCH ×2 (08:04→20:30)
[2017-03-02] MEDS ORDERED: ACETYLCYSTEINE 20% INHAL SOLN ***DISPENSED BY RESP. INH ONE ×2 (09:15→12:15)
--- NOTE | 2017-03-02 09:15 | DIAGNOSTIC IMAGING REPORT ---
CHEST ONE VIEW PORTABLE HISTORY: post vent change/atelectasis COMPARISON: Chest 03/02/2017. FINDINGS: The tip of the nasogastric tube is difficult to visualize but likely resides approximately 4.6 cm from the saundra. The distal nasogastric tube is likely obscured overlying soft tissue. No pneumothorax. Mild central pulmonary vascular congestion without overt edema. Patchy bibasilar densities and trace pleural effusions persist. The heart remains enlarged. IMPRESSION: 1. Difficult evaluation of the lines/tubes due to the portable study. The endotracheal tube likely terminates approximate 4.6 cm from the saundra. The distal nasogastric tube is obscured by the overlying soft tissue. 2. Cardiomegaly, bibasilar densities, and trace bilateral pleural effusions persist. Electronically signed by: Antony West M.D. 03/02/2017 9:14 AM Dictated Date/Time: 03/02/2017 9:10 AM
--- NOTE | 2017-03-02 09:31 | Critical Care Progress Note ---
Critical Care Progress Note Date of Service Mar 02, 2017. ICU Day ICU Day Number: 2 Attending Subjective He remains ventilated and sedated. I spoke with anesthesia and team regarding plan to complete the hip procedure. Respiratory efforts have resulted in improved atelectasis and collapse of the right upper and middle lobe. Leak in the ETT will require a change today. His situation remains tenuous given underlying poor pulmonary status and general very poor performance. Objective Gen--sedated HEENT--no focal target Respiratory--exchange acceptable and improved on the right thanks to efforts of respiratory Cardio--rate and volume ok GI--functional Musculo--left hip wound noted Neuro--sedated Derm--no acute changes Assessment & Plan Arrest in the OR during DANY--underlying COPD/Hypoventilator/HTN and very heavy narcotic and ETOH user. 1. Pulmonary--continue support until completion of the surgery. Aggressive pulmonary toilette measures continue. 2. Cardio--volume status acceptable. Will track urine output 3. GI--OG 4. F/E/N--acceptable 5. Musculo--to have hip surgery completed. 6. Neuro--DTs a real concern. Consults & Procedures Consultants: no new consults today Procedures: anticipate tube change. Anesthesia may utilize an a-line. PIC and or MidLine with eye to remove the femoral line. Data Medications: Current Inpatient Medications Medications (Trade) Dose Ordered Sig/Sujey Route Start Time Stop Time Status Last Admin Dose Admin Midazolam HCl 250 ml @ 0 mls/hr Q0M PRN IV 03/01/17 11:44 03/31/17 11:43 03/02/17 02:46 20 MLS/HR Fentanyl Citrate 250 ml @ 0 mls/hr Q0M PRN IV 03/01/17 11:45 03/15/17 11:44 03/02/17 02:46 40 MLS/HR Levalbuterol (Xopenex 1.25MG/ 3ML Neb) 1.25 mg Q4 PRN INH 03/01/17 12:00 03/31/17 11:59 03/02/17 08:00 1.25 MG Pantoprazole Sodium 40 mg/ Syringe 10 ml @ 5 mls/min DAILY IV 03/02/17 09:00 04/01/17 08:59 03/02/17 07:58 5 MLS/MIN Glucose (Glucose 40% Gel) 15-30 GRAMS 15 GRAMS... UD PRN PO 03/01/17 12:00 03/31/17 11:59 Glucose (Glucose Chew Tab) 4-8 Tablets 4 Tabl... UD PRN PO 03/01/17 12:00 03/31/17 11:59 Dextrose (Dextrose 50% 50ML Syringe) 25-50ML OF 50% DW IV FOR... UD PRN IV 03/01/17 12:00 03/31/17 11:59 Glucagon (Glucagon Inj) 1 mg UD PRN SQ 03/01/17 12:00 03/31/17 11:59 Miscellaneous Information (Consult Glycemic Management Pharmacy) 1 ea UD PRN N/A 03/01/17 12:30 03/31/17 12:29 Glucose (Glucose 40% Gel) 15-30 GRAMS 15 GRAMS... UD PRN PO 03/01/17 13:30 03/31/17 13:29 Glucose (Glucose Chew Tab) 4-8 Tablets 4 Tabl... UD PRN PO 03/01/17 13:30 03/31/17 13:29 Dextrose (Dextrose 50% 50ML Syringe) 25-50ML OF 50% DW IV FOR... UD PRN IV 03/01/17 13:30 03/31/17 13:29 Glucagon (Glucagon Inj) 1 mg UD PRN SQ 03/01/17 13:30 03/31/17 13:29 Insulin Aspart (novoLOG ASPART) SLIDING SCALE Q4 SC 03/01/17 16:00 03/31/17 15:59 03/01/17 23:29 1 UNITS Insulin Glargine (Lantus Solostar Pen) see protocol text BID SC 03/01/17 21:00 03/31/17 20:59 03/02/17 08:04 15 UNITS Metoprolol Tartrate (Lopressor Iv) 5 mg Q4H IV. 03/01/17 18:00 03/31/17 17:59 03/01/17 22:36 5 MG Dexmedetomidine HCl 400 mcg/ Sodium Chloride 100 ml @ 0 mls/hr Q0M PRN IV 03/01/17 15:00 03/08/17 14:59 03/02/17 02:54 7.3 MLS/HR Parenteral Electrolyte Solution 1,000 ml @ 100 mls/hr Q10H IV 03/01/17 21:00 03/31/17 20:59 03/02/17 06:20 100 MLS/HR Acetaminophen 100 ml @ 400 mls/hr Q6H PRN IV 03/02/17 01:00 04/01/17 00:59 03/02/17 01:18 400 MLS/HR Magnesium Sulfate 1 gm/Prmx 100 ml @ 100 mls/hr Q1H IV 03/02/17 07:30 03/02/17 09:29 03/02/17 09:01 100 MLS/HR Sodium Phosphate 15 mmol/Sodium Chloride 255 ml @ 88 mls/hr TODAY@0730 ONCE IV 03/02/17 07:30 03/02/17 10:23 03/02/17 08:01 88 MLS/HR Vital Signs: Date Time Temp Pulse Resp B/P (MAP) Pulse Ox O2 Delivery O2 Flow Rate FiO2 03/02/17 07:19 30 03/02/17 06:00 55 18 137/77 (97) 94 Mechanical Ventilator 30 03/02/17 06:00 54 03/02/17 05:10 30 03/02/17 04:16 58 18 124/68 (86) 93 Mechanical Ventilator 30 03/02/17 04:00 Mechanical Ventilator 30 03/02/17 04:00 37.6 55 18 187/96 (126) 96 Mechanical Ventilator 40 03/02/17 04:00 50 03/02/17 03:44 55 18 190/96 (127) 96 Mechanical Ventilator 40 03/02/17 03:00 58 18 172/89 (116) 96 Mechanical Ventilator 40 03/02/17 02:00 37.7 55 18 163/87 (112) 96 Mechanical Ventilator 40 03/02/17 01:35 40 03/02/17 01:24 57 03/02/17 00:01 38.0 59 18 159/87 (111) 95 Mechanical Ventilator 40 03/01/17 23:59 Mechanical Ventilator 40 03/01/17 23:59 50 03/01/17 23:00 40 03/01/17 22:36 62 146/84 03/01/17 22:00 40 03/01/17 22:00 63 18 146/84 (102) 93 03/01/17 21:01 67 18 125/76 (89) 95 03/01/17 20:27 50 03/01/17 20:01 63 18 178/100 (127) 98 03/01/17 20:00 37.3 03/01/17 20:00 Mechanical Ventilator 50 03/01/17 20:00 50 03/01/17 19:18 61 150/89 03/01/17 19:01 60 18 150/89 (99) 98 03/01/17 18:11 50 03/01/17 18:01 61 18 144/85 (112) 99 03/01/17 17:15 59 18 117/73 (89) 100 03/01/17 17:00 62 18 119/73 (90) 100 03/01/17 16:45 61 18 115/74 (90) 100 03/01/17 16:30 64 18 114/74 (79) 100 03/01/17 16:16 66 18 102/66 (77) 95 03/01/17 16:01 67 18 115/74 (84) 89 03/01/17 16:00 60 03/01/17 16:00 37.5 03/01/17 16:00 Mechanical Ventilator 60 03/01/17 15:46 67 18 118/75 (84) 97 03/01/17 15:36 73 18 111/61 (67) 100 03/01/17 15:31 76 17 105/69 (79) 100 03/01/17 15:26 72 18 117/66 (71) 97 03/01/17 15:20 57 18 105/67 (81) 03/01/17 15:15 57 18 107/65 (69) 03/01/17 15:01 60 18 95/57 (62) 97 03/01/17 15:00 101 201/83 03/01/17 14:59 141 201/83 03/01/17 14:00 80 21 03/01/17 14:00 50 03/01/17 13:53 101 169/104 03/01/17 13:31 86 18 181/107 (127) 99 03/01/17 13:30 92 18 03/01/17 13:26 93 19 166/106 (122) 97 03/01/17 13:21 100 18 203/113 (145) 98 03/01/17 13:16 96 17 175/114 (126) 99 03/01/17 13:11 95 16 161/96 (110) 98 03/01/17 13:06 106 17 189/107 (138) 96 03/01/17 13:00 109 22 96 03/01/17 12:51 87 16 143/87 (100) 99 03/01/17 12:46 87 21 149/92 (106) 99 03/01/17 12:41 88 17 154/87 (107) 99 03/01/17 12:36 88 17 155/88 (100) 99 03/01/17 12:31 89 19 148/87 (108) 98 03/01/17 12:30 88 19 98 03/01/17 12:25 92 22 150/86 (99) 98 03/01/17 12:21 92 23 133/83 (107) 98 03/01/17 12:16 97 22 120/86 (99) 97 03/01/17 12:06 97 16 177/95 (131) 100 03/01/17 12:01 92 18 170/101 (124) 100 03/01/17 12:00 50 03/01/17 12:00 91 19 03/01/17 11:30 36.7 85 16 78/53 99 03/01/17 11:20 85 16 92/59 (71) 99 Mechanical Ventilator 50 03/01/17 11:10 78 19 81/52 (62) 100 Mechanical Ventilator 100 03/01/17 11:00 81 17 83/56 (73) 100 Mechanical Ventilator 100 03/01/17 10:50 100 03/01/17 10:50 36.7 88 19 85/58 (70) 100 Mechanical Ventilator 100 Laboratory Results: Last 24 Hours Test 03/01/17 11:58 03/01/17 12:03 03/01/17 13:10 03/01/17 14:19 Blood Gas Sample Site R Radial L Radial Bedside Blood Gas pH (LAB) 7.30 7.29 Bedside Blood Gas pCO2 (LAB) 56 mmHg 49 mmHg Bedside Blood Gas pO2 (LAB) 364 mmHg 85 mmHg Bedside Blood Gas HCO3 (LAB) 27 meq/L 24 meq/L Bedside Blood Gas Total CO2 29 mEq/l 25 mEq/l Bedside Blood Gas Base Excess (LAB) 1.0 meq/L -3.0 meq/L Bedside Blood Gas O2 Saturation 100.0 % 95.0 % Maurice Test Pass Pass Oxygen Delivery Device Ventilator Ventilator Bedside Oxygen Rate (breaths/min) 12 16 Blood Gas Minute Ventilation 11.5 11.4 Bedside FiO2 100 % 50 % 50 % Blood Gas Tidal Volume 600 700 Blood Gas PEEP 5 5 White Blood Count 7.75 K/uL Red Blood Count 3.36 M/uL Hemoglobin 11.2 g/dL Hematocrit 33.6 % Mean Corpuscular Volume 100.0 fL Mean Corpuscular Hemoglobin 33.3 pg Mean Corpuscular Hemoglobin Concent 33.3 g/dl Platelet Count 170 K/uL Mean Platelet Volume 8.7 fL Neutrophils (%) (Auto) 79.2 % Lymphocytes (%) (Auto) 11.4 % Monocytes (%) (Auto) 7.4 % Eosinophils (%) (Auto) 0.9 % Basophils (%) (Auto) 0.1 % Neutrophils # (Auto) 6.14 K/uL Lymphocytes # (Auto) 0.88 K/uL Monocytes # (Auto) 0.57 K/uL Eosinophils # (Auto) 0.07 K/uL Basophils # (Auto) 0.01 K/uL RDW Standard Deviation 49.1 fL RDW Coefficient of Variation 13.6 % Immature Granulocyte % (Auto) 1.0 % Immature Granulocyte # (Auto) 0.08 K/uL Prothrombin Time 11.1 SECONDS Prothromb Time International Ratio 1.0 Activated Partial Thromboplast Time 25.7 SECONDS Partial Thromboplastin Ratio 1.0 Sodium Level 136 mmol/L Potassium Level 4.9 mmol/L Chloride Level 103 mmol/L Carbon Dioxide Level 25 mmol/L Anion Gap 8.0 mmol/L Blood Urea Nitrogen 23 mg/dl Creatinine 1.35 mg/dl Est Creatinine Clear Calc Drug Dose 85.1 ml/min Estimated GFR () 63.9 Estimated GFR (Non- 55.1 BUN/Creatinine Ratio 16.9 Random Glucose 200 mg/dl Calcium Level 8.4 mg/dl Total Bilirubin 0.5 mg/dl Direct Bilirubin 0.1 mg/dl Aspartate Amino Transf (AST/SGOT) 138 U/L Alanine Aminotransferase (ALT/SGPT) 95 U/L Alkaline Phosphatase 122 U/L Total Creatine Kinase 120 U/L Creatine Kinase MB 4.0 ng/ml Creatine Kinase MB Ratio 3.3 Troponin I 0.286 ng/ml Total Protein 6.2 gm/dl Albumin 2.8 gm/dl Globulin 3.4 gm/dl Albumin/Globulin Ratio 0.8 Bedside Venous pH 7.25 Bedside Venous pCO2 57 mmHg Bedside Venous pO2 < 32 mmHg Bedside Venous HCO3 25 meq/L Bedside Venous Blood Total CO2 27 mEq/l Bedside Venous Blood O2 Saturation 39.0 % Bedside Venous Blood Base Excess -2.0 meq/L Test 03/01/17 14:45 03/01/17 16:46 03/01/17 18:00 03/01/17 20:00 Blood Gas Sample Site R Radial Bedside Blood Gas pH (LAB) 7.33 Bedside Blood Gas pCO2 (LAB) 41 mmHg Bedside Blood Gas pO2 (LAB) 97 mmHg Bedside Blood Gas HCO3 (LAB) 21 meq/L Bedside Blood Gas Total CO2 23 mEq/l Bedside Blood Gas Base Excess (LAB) -5.0 meq/L Bedside Blood Gas O2 Saturation 97.0 % Maurice Test Pass Oxygen Delivery Device Ventilator Bedside Oxygen Rate (breaths/min) 18 Blood Gas Minute Ventilation 12.7 Bedside FiO2 50 % Blood Gas Tidal Volume 750 Blood Gas PEEP 5 Bedside Glucose 144 mg/dl 136 mg/dl Hemoglobin 10.3 g/dL Hematocrit 31.2 % Estimated Average Glucose 177 mg/dl Hemoglobin A1c 7.8 % Test 03/01/17 23:12 03/01/17 23:17 03/02/17 03:56 03/02/17 05:28 Hemoglobin 10.4 g/dL 10.4 g/dL Hematocrit 31.9 % 31.9 % Bedside Glucose 175 mg/dl 133 mg/dl White Blood Count 8.68 K/uL Red Blood Count 3.22 M/uL Mean Corpuscular Volume 99.1 fL Mean Corpuscular Hemoglobin 32.3 pg Mean Corpuscular Hemoglobin Concent 32.6 g/dl Platelet Count 145 K/uL Mean Platelet Volume 8.9 fL Neutrophils (%) (Auto) 82.6 % Lymphocytes (%) (Auto) 9.9 % Monocytes (%) (Auto) 6.9 % Eosinophils (%) (Auto) 0.3 % Basophils (%) (Auto) 0.1 % Neutrophils # (Auto) 7.16 K/uL Lymphocytes # (Auto) 0.86 K/uL Monocytes # (Auto) 0.60 K/uL Eosinophils # (Auto) 0.03 K/uL Basophils # (Auto) 0.01 K/uL RDW Standard Deviation 48.9 fL RDW Coefficient of Variation 13.7 % Immature Granulocyte % (Auto) 0.2 % Immature Granulocyte # (Auto) 0.02 K/uL Sodium Level 138 mmol/L Potassium Level 4.0 mmol/L Chloride Level 105 mmol/L Carbon Dioxide Level 24 mmol/L Anion Gap 9.0 mmol/L Blood Urea Nitrogen 21 mg/dl Creatinine 1.27 mg/dl Est Creatinine Clear Calc Drug Dose 88.5 ml/min Estimated GFR () 68.7 Estimated GFR (Non- 59.3 BUN/Creatinine Ratio 16.4 Random Glucose 133 mg/dl Calcium Level 7.7 mg/dl Phosphorus Level 2.4 mg/dl Magnesium Level 1.6 mg/dl
[2017-03-02] MEDS ORDERED: CEFAZOLIN IV 2,000 MG in SYRINGE 0 ML IV ONE (10:00)
--- NOTE | 2017-03-02 10:02 | Pulmonary Consultation ---
History General Date of Service: Mar 02, 2017. Stated Complaint: Left Hip Degenerative Joint Disease HPI The patient is a 66 year old male who presents to [facility] with complaints of Left Hip Degenerative Joint Disease. The patient's primary care provider is Matilde Mauricio D.O.. Mr. Guo is a 66-year-old male presented on 01/29/2017 for left total hip arthroplasty. The left femoral head was removed and acetabulum reamed. He subsequently became bradycardic and went into V. fib arrest . The procedure was aborted and CPR was initiated. He underwent 4 rounds of CPR, he received IV epinephrine as well as 2 synchronized electrical cardioversion shocks. He received 300 mg of IV amiodarone with return of spontaneous circulation. He was initially given spinal anesthesia for sedation, which converted to general anesthesia after arrest. Surgical incision was closed. He was intubated and transferred to the ICU for further management. Post code labs showed white blood cell count of 7.75, hemoglobin 11.2, platelet count of 170. Chemistry was significant for a BUN of 24, creatinine of 1.37, random glucose of 2.02, troponin of 0.286. Total protein 6.2, albumin 2.8. Chemistries this morning 03/02/2017 significant for phosphorus 2.4 and magnesium 1.6. Initial EKG after showed right bundle branch block at a rate of 94 beats a minute. Repeat showed sinus rhythm with first-degree AV block. He had a bedside echocardiogram that showed a hyperdynamic LV with an estimated ejection fraction of 65-70% with out motional abnormalities. Estimated tricuspid valve regurgitant velocity showed possible elevated pulmonary pressures. This was confirmed on official TTE with estimated RSVP of between 50-60 mmHg. ABG post intubation was 7.30/56/364/27/100% on the VC/AC , tidal volume 600 mL, respiratory rate of 12, PEEP of 5 and FiO2 of 100%. Repeat ABG at 1310 showed 7.29/49/85/24/95% on tidal volume 700 mL, respiratory rate 16/PEEP of 5 and 50% FiO2. ABG at 1445 showed 7.33/41/97/21/97% on tidal volume 750 mL, respiratory rate 18, PEEP of 5 and FiO2 50%. Post intubation x-ray showed suboptimal positioning of endotracheal tube with interval volume loss of the right hemithorax with mediastinal opacification. There is also some multi lobar collapse secondary to mucus plugging. The endotracheal tube was advanced and patient underwent bronchoscopy the right middle and upper lobes were visualized and lavage, with removal of thick mucus. Postprocedure x-ray showed increased aeration of right middle lobe. Repeat chest x-ray this morning shows continued bibasilar atelectasis versus infiltrate. Per ICU team, patient became quite agitated and had to be sent to sedated with Versed, fentanyl and dexmedetomidine. His total fluid balance is about 6.7 L since admission. Historian: other (EMR) Onset: yesterday Review of Systems Patient is intubated and sedated and unable to provide review of systems. Past Medical History Past Medical History: Type 2 diabetes, hypertension, morbid obesity, sleep apnea, depression, alcohol abuse and osteoarthritis Past Surgical History: Lumbar puncture Carpal tunnel release Knee arthroplasty Family History Unable to obtain. Social History Per records, he is , has a long history of alcohol abuse. He states drinks up to 3 year-old more drinks daily. He also has history of tobacco use and smoking 10 cigarettes daily. 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 Hx Tobacco Use In Past Year?: Yes (10 OR LESS / DAY) Smoking Status: Current Every Day Smoker History of MDRO History of MDRO: No Allergies Coded Allergies: No Known Allergies (Verified , 03/01/17) Current Medications Reported Home Medications Medications Dose Route/Sig Max Daily Dose Days Date Category Lipitor (Atorvastatin Calcium) 10 Mg Tab 10 Mg PO QAM 02/10/17 Reported Folvite (Folic Acid) 1 Mg Tab 1 Tab PO QAM 90 02/10/17 Reported Januvia (Sitagliptin Phosphate) 100 Mg Tab 100 Mg PO QAM 02/10/17 Reported Lyrica (Pregabalin) 25 Mg Cap 25 Mg PO TID 02/10/17 Reported Ativan (Lorazepam) 1 Mg Tab 1 Mg PO Q12 PRN 10/20/15 Reported Aleve (Naproxen Sodium) 220 Mg Tab 220 Mg PO DIRECTED 10/24/14 Reported LORTAB 10-325 mg (Hydrocodone-Acetaminophen) 1 Tab Tab 1 Tab PO Q6 PRN 10/06/14 Reported Flomax (Tamsulosin Hcl) 0.4 Mg Cap 0.4 Mg PO QAM 10/06/14 Reported Toprol-Xl (Metoprolol Succinate) 50 Mg Tabcr 50 Mg PO QAM 10/06/14 Reported Physical Physical Exam Vital Signs: Date Time Temp Pulse Resp B/P (MAP) Pulse Ox O2 Delivery O2 Flow Rate FiO2 03/02/17 07:19 30 03/02/17 06:00 55 18 137/77 (97) 94 Mechanical Ventilator 30 03/02/17 06:00 54 03/02/17 05:10 30 03/02/17 04:16 58 18 124/68 (86) 93 Mechanical Ventilator 30 03/02/17 04:00 Mechanical Ventilator 30 03/02/17 04:00 37.6 55 18 187/96 (126) 96 Mechanical Ventilator 40 03/02/17 04:00 50 03/02/17 03:44 55 18 190/96 (127) 96 Mechanical Ventilator 40 03/02/17 03:00 58 18 172/89 (116) 96 Mechanical Ventilator 40 03/02/17 02:00 37.7 55 18 163/87 (112) 96 Mechanical Ventilator 40 03/02/17 01:35 40 03/02/17 01:24 57 03/02/17 00:01 38.0 59 18 159/87 (111) 95 Mechanical Ventilator 40 03/01/17 23:59 Mechanical Ventilator 40 03/01/17 23:59 50 03/01/17 23:00 40 03/01/17 22:36 62 146/84 03/01/17 22:00 40 03/01/17 22:00 63 18 146/84 (102) 93 03/01/17 21:01 67 18 125/76 (89) 95 03/01/17 20:27 50 03/01/17 20:01 63 18 178/100 (127) 98 03/01/17 20:00 37.3 03/01/17 20:00 Mechanical Ventilator 50 03/01/17 20:00 50 03/01/17 19:18 61 150/89 03/01/17 19:01 60 18 150/89 (99) 98 03/01/17 18:11 50 03/01/17 18:01 61 18 144/85 (112) 99 03/01/17 17:15 59 18 117/73 (89) 100 03/01/17 17:00 62 18 119/73 (90) 100 03/01/17 16:45 61 18 115/74 (90) 100 03/01/17 16:30 64 18 114/74 (79) 100 03/01/17 16:16 66 18 102/66 (77) 95 03/01/17 16:01 67 18 115/74 (84) 89 03/01/17 16:00 60 03/01/17 16:00 37.5 03/01/17 16:00 Mechanical Ventilator 60 03/01/17 15:46 67 18 118/75 (84) 97 03/01/17 15:36 73 18 111/61 (67) 100 03/01/17 15:31 76 17 105/69 (79) 100 03/01/17 15:26 72 18 117/66 (71) 97 03/01/17 15:20 57 18 105/67 (81) 03/01/17 15:15 57 18 107/65 (69) 03/01/17 15:01 60 18 95/57 (62) 97 03/01/17 15:00 101 201/83 03/01/17 14:59 141 201/83 03/01/17 14:00 80 21 03/01/17 14:00 50 03/01/17 13:53 101 169/104 03/01/17 13:31 86 18 181/107 (127) 99 03/01/17 13:30 92 18 03/01/17 13:26 93 19 166/106 (122) 97 03/01/17 13:21 100 18 203/113 (145) 98 03/01/17 13:16 96 17 175/114 (126) 99 03/01/17 13:11 95 16 161/96 (110) 98 03/01/17 13:06 106 17 189/107 (138) 96 03/01/17 13:00 109 22 96 03/01/17 12:51 87 16 143/87 (100) 99 03/01/17 12:46 87 21 149/92 (106) 99 03/01/17 12:41 88 17 154/87 (107) 99 03/01/17 12:36 88 17 155/88 (100) 99 03/01/17 12:31 89 19 148/87 (108) 98 03/01/17 12:30 88 19 98 03/01/17 12:25 92 22 150/86 (99) 98 03/01/17 12:21 92 23 133/83 (107) 98 03/01/17 12:16 97 22 120/86 (99) 97 03/01/17 12:06 97 16 177/95 (131) 100 03/01/17 12:01 92 18 170/101 (124) 100 03/01/17 12:00 50 03/01/17 12:00 91 19 03/01/17 11:30 36.7 85 16 78/53 99 03/01/17 11:20 85 16 92/59 (71) 99 Mechanical Ventilator 50 03/01/17 11:10 78 19 81/52 (62) 100 Mechanical Ventilator 100 03/01/17 11:00 81 17 83/56 (73) 100 Mechanical Ventilator 100 03/01/17 10:50 100 03/01/17 10:50 36.7 88 19 85/58 (70) 100 Mechanical Ventilator 100 General Appearance: obese Head: NORMOCEPHALIC, ATRAUMATIC Eyes: other (pinpoint pupils) ENT: other (ET tube in place, OG tube in place, bloody secretions around mouth) Neck: NORMAL RANGE OF MOTION, NO TENDERNESS, TRACHEA MIDLINE, NO STRIDOR Respiratory: other (coarse breath sound bilaterally) Cardiovasular: REGULAR RATE/RHYTHM, NORMAL S1S2 (bradycardic) Abdomen: other (obese abdomen, BS+) Upper Extremities: other (no clubbing, no cyananosis) Edema: Bilateral LE (2+) Neuro: other (intubated, sedated) Diagnostics Labs Results Past 24 Hours Test 03/01/17 11:58 03/01/17 12:03 03/01/17 13:10 03/01/17 14:19 Range/Units Blood Gas Sample Site R Radial L Radial Bedside Blood Gas pH (LAB) 7.30 7.29 7.35-7.45 Bedside Blood Gas pCO2 (LAB) 56 49 35-46 mmHg Bedside Blood Gas pO2 (LAB) 364 85 80-95 mmHg Bedside Blood Gas HCO3 (LAB) 27 24 19-24 meq/L Bedside Blood Gas Total CO2 29 25 24-31 mEq/l Bedside Blood Gas Base Excess (LAB) 1.0 -3.0 -9-1.8 meq/L Bedside Blood Gas O2 Saturation 100.0 95.0 90-95 % Maurice Test Pass Pass Oxygen Delivery Device Ventilator Ventilator Bedside Oxygen Rate (breaths/min) 12 16 Blood Gas Minute Ventilation 11.5 11.4 Bedside FiO2 100 50 50 % Blood Gas Tidal Volume 600 700 Blood Gas PEEP 5 5 White Blood Count 7.75 4.8-10.8 K/uL Red Blood Count 3.36 4.7-6.1 M/uL Hemoglobin 11.2 14.0-18.0 g/dL Hematocrit 33.6 42-52 % Mean Corpuscular Volume 100.0 80-100 fL Mean Corpuscular Hemoglobin 33.3 25-34 pg Mean Corpuscular Hemoglobin Concent 33.3 32-36 g/dl Platelet Count 170 130-400 K/uL Mean Platelet Volume 8.7 7.4-10.4 fL Neutrophils (%) (Auto) 79.2 % Lymphocytes (%) (Auto) 11.4 % Monocytes (%) (Auto) 7.4 % Eosinophils (%) (Auto) 0.9 % Basophils (%) (Auto) 0.1 % Neutrophils # (Auto) 6.14 1.4-6.5 K/uL Lymphocytes # (Auto) 0.88 1.2-3.4 K/uL Monocytes # (Auto) 0.57 0.11-0.59 K/uL Eosinophils # (Auto) 0.07 0-0.5 K/uL Basophils # (Auto) 0.01 0-0.2 K/uL RDW Standard Deviation 49.1 36.4-46.3 fL RDW Coefficient of Variation 13.6 11.5-14.5 % Immature Granulocyte % (Auto) 1.0 % Immature Granulocyte # (Auto) 0.08 0.00-0.02 K/uL Prothrombin Time 11.1 9.0-12.0 SECONDS Prothromb Time International Ratio 1.0 0.9-1.1 Activated Partial Thromboplast Time 25.7 21.0-31.0 SECONDS Partial Thromboplastin Ratio 1.0 Sodium Level 136 136-145 mmol/L Potassium Level 4.9 3.5-5.1 mmol/L Chloride Level 103 98-107 mmol/L Carbon Dioxide Level 25 21-32 mmol/L Anion Gap 8.0 3-11 mmol/L Blood Urea Nitrogen 23 7-18 mg/dl Creatinine 1.35 0.60-1.40 mg/dl Est Creatinine Clear Calc Drug Dose 85.1 ml/min Estimated GFR () 63.9 Estimated GFR (Non- 55.1 BUN/Creatinine Ratio 16.9 10-20 Random Glucose 200 70-99 mg/dl Calcium Level 8.4 8.5-10.1 mg/dl Total Bilirubin 0.5 0.2-1 mg/dl Direct Bilirubin 0.1 0-0.2 mg/dl Aspartate Amino Transf (AST/SGOT) 138 15-37 U/L Alanine Aminotransferase (ALT/SGPT) 95 12-78 U/L Alkaline Phosphatase 122 45-117 U/L Total Creatine Kinase 120 39-308 U/L Creatine Kinase MB 4.0 0.5-3.6 ng/ml Creatine Kinase MB Ratio 3.3 0-3.0 Troponin I 0.286 0-0.045 ng/ml Total Protein 6.2 6.4-8.2 gm/dl Albumin 2.8 3.4-5.0 gm/dl Globulin 3.4 2.5-4.0 gm/dl Albumin/Globulin Ratio 0.8 0.9-2 Bedside Venous pH 7.25 7.36-7.41 Bedside Venous pCO2 57 38.0-50.0 mmHg Bedside Venous pO2 < 32 30-55 mmHg Bedside Venous HCO3 25 23-28 meq/L Bedside Venous Blood Total CO2 27 24-31 mEq/l Bedside Venous Blood O2 Saturation 39.0 70-80 % Bedside Venous Blood Base Excess -2.0 meq/L Test 03/01/17 14:45 03/01/17 16:46 03/01/17 18:00 03/01/17 20:00 Range/Units Blood Gas Sample Site R Radial Bedside Blood Gas pH (LAB) 7.33 7.35-7.45 Bedside Blood Gas pCO2 (LAB) 41 35-46 mmHg Bedside Blood Gas pO2 (LAB) 97 80-95 mmHg Bedside Blood Gas HCO3 (LAB) 21 19-24 meq/L Bedside Blood Gas Total CO2 23 24-31 mEq/l Bedside Blood Gas Base Excess (LAB) -5.0 -9-1.8 meq/L Bedside Blood Gas O2 Saturation 97.0 90-95 % Maurice Test Pass Oxygen Delivery Device Ventilator Bedside Oxygen Rate (breaths/min) 18 Blood Gas Minute Ventilation 12.7 Bedside FiO2 50 % Blood Gas Tidal Volume 750 Blood Gas PEEP 5 Bedside Glucose 144 136 70-99 mg/dl Hemoglobin 10.3 14.0-18.0 g/dL Hematocrit 31.2 42-52 % Estimated Average Glucose 177 mg/dl Hemoglobin A1c 7.8 4.5-5.6 % Test 03/01/17 23:12 03/01/17 23:17 03/02/17 03:56 03/02/17 05:28 Range/Units Hemoglobin 10.4 10.4 14.0-18.0 g/dL Hematocrit 31.9 31.9 42-52 % Bedside Glucose 175 133 70-99 mg/dl White Blood Count 8.68 4.8-10.8 K/uL Red Blood Count 3.22 4.7-6.1 M/uL Mean Corpuscular Volume 99.1 80-100 fL Mean Corpuscular Hemoglobin 32.3 25-34 pg Mean Corpuscular Hemoglobin Concent 32.6 32-36 g/dl Platelet Count 145 130-400 K/uL Mean Platelet Volume 8.9 7.4-10.4 fL Neutrophils (%) (Auto) 82.6 % Lymphocytes (%) (Auto) 9.9 % Monocytes (%) (Auto) 6.9 % Eosinophils (%) (Auto) 0.3 % Basophils (%) (Auto) 0.1 % Neutrophils # (Auto) 7.16 1.4-6.5 K/uL Lymphocytes # (Auto) 0.86 1.2-3.4 K/uL Monocytes # (Auto) 0.60 0.11-0.59 K/uL Eosinophils # (Auto) 0.03 0-0.5 K/uL Basophils # (Auto) 0.01 0-0.2 K/uL RDW Standard Deviation 48.9 36.4-46.3 fL RDW Coefficient of Variation 13.7 11.5-14.5 % Immature Granulocyte % (Auto) 0.2 % Immature Granulocyte # (Auto) 0.02 0.00-0.02 K/uL Sodium Level 138 136-145 mmol/L Potassium Level 4.0 3.5-5.1 mmol/L Chloride Level 105 98-107 mmol/L Carbon Dioxide Level 24 21-32 mmol/L Anion Gap 9.0 3-11 mmol/L Blood Urea Nitrogen 21 7-18 mg/dl Creatinine 1.27 0.60-1.40 mg/dl Est Creatinine Clear Calc Drug Dose 88.5 ml/min Estimated GFR () 68.7 Estimated GFR (Non- 59.3 BUN/Creatinine Ratio 16.4 10-20 Random Glucose 133 70-99 mg/dl Calcium Level 7.7 8.5-10.1 mg/dl Phosphorus Level 2.4 2.5-4.9 mg/dl Magnesium Level 1.6 1.8-2.4 mg/dl Microbiology Results 03/02/17 Blood Culture, Received Pending 03/02/17 Blood Culture, Received Pending 03/01/17 MRSA DNA Surveillance Screen - Final, Complete Specimen Negative for MRSA by DNA Probe Diagnostic Radiology CHEST ONE VIEW PORTABLE 03/01/2017 CLINICAL HISTORY: Intubated tube position COMPARISON STUDY: 03/01/2017 FINDINGS: Limited study technically due to patient respiratory and somatic motion. Endotracheal tube 4 cm both saundra. Nasogastric tube most likely in the region of the stomach. Moderate stable cardiomegaly. Bibasilar atelectatic change. Mid and upper lungs are clear. IMPRESSION: Endotracheal tube 4 cm both saundra. Stable cardiomegaly. Unchanging bibasilar atelectatic and/or infiltrative change. Technically limited study due to patient motion as well as body habitus TTE 03/01/2017 * -- Conclusions -- * The left ventricle is normal in size. * There is mild concentric left ventricular hypertrophy. * No regional wall motion abnormalities noted. * Ejection Fraction = 65-70%. * The study was technically difficult. * A contrast injection of Definity was performed to improve assessment of LV function. * Aortic valve sclerosis mild, without significant aortic valvular stenosis. * There is trace tricuspid regurgitation. * Right ventricular systolic pressure is elevated at 50-60mmHg. Impression Assessment and Plan Ventilator dependent respiratory failure Cardiac arrest Morbid obesity Possible obstructive sleep apnea Obesity hypoventilation syndrome Tobacco use disorder Alcohol abuse Osteoarthritis Mucus plugging Atelectasis Mr. Restrepo has multiple medical problems. He subsequently had cardiac arrest during left hip arthroplasty likely secondary to possible respiratory arrest. Patient subsequently intubated and sedated although this has been difficult due to patient's long history of alcohol abuse. He is requiring increased amounts of Versed, fentanyl and dexmedetomidine to control agitation. Due to patient's body habitus, he most likely has a component of both obstructive sleep apnea, obesity hypoventilation syndrome and atelectasis. Due to his long history of smoking he also may have a component of chronic obstructive pulmonary disease. On review of his ABGs, gas exchange appears to be adequate. However chest x- ray shows that he does have some volume loss bilaterally. Most likely on the right versus the left. He subsequently underwent bronchoscopy for mucus plugging which seemed to improve aeration post procedure.However repeat imaging this morning shows minimal improvement. Lung volumes still seems suboptimal despite increased tidal volumes. Peak pressure and plateau pressures are within normal limits. Vent alarm intermittently alarming. Cuff deflated. Lastly, pulmonary embolism and fat emboli are on the differential, but less likely. Recommendations Recommend ET exchange. At this time I would increase PEEP to between 10-12 cm H2O to recruit alveoli. This may be improve atelectasis. Recommend decreasing tidal volumes to between 6-8ml/kg. Continue with aggressive pulmonary toilet, with chest PT and suctioning. Recommend Mucomyst 20% 3 mL twice a day. Continue with nebulizer with Xopenex q4-6h prn Try to keep in negative balance if possible as kidney function tolerates. Repeat chest x-ray to assess interval improvement. If atelectasis persists will consider repeat bronchoscopy. Also, can proceed with CT chest with contrast to further evaluate lung parenchyma and vasculature. Patient still remains intubated and a high risk for the procedure. We should proceed with surgery once optimized. Discussed plan with Dr. Hensley.
[2017-03-02] MEDS: FoLIC ACID INJ 1 MG in SYRINGE 9.8 ML IV SCH (10:10)
[2017-03-02] MEDS: THIAMINE HCL INJ 100 MG in SYRINGE 9 ML IV SCH ×2 (10:10→21:48)
--- NOTE | 2017-03-02 10:14 | Clinical Documentation Query ---
CLINICAL DOCUMENTATION QUERY QUERY 1 OF 2 A 66 yo male admitted to ICU following an intraoperative arrest. In your clinical opinion is this patient being managed for: ( ) Acute respiratory failure with hypoxia ( ) Not Agree ( ) Other explanation of clinical findings (Please Explain) ( ) Unable to determine (Please Define) ( ) Need to Discuss The medical record reflects the following clinical findings, treatment, and risk factors. Clinical Indicators: Intubation and mechanical ventilation, pH 7.30, pCO2 56, respirations 12 Treatment: Intubation and mechanical ventilation, ICU, pulmonary consult Risk Factors: S/P cardiac arrest, obesity, s/p surgical event, obstructive sleep apnea, COPD QUERY 2 OF 2 In your clinical opinion is this patient being managed for: ( ) Respiratory arrest ( ) Not Agree ( ) Other explanation of clinical findings (Please Explain) ( ) Unable to determine (Please Define) ( ) Need to Discuss The medical record reflects the following clinical findings, treatment, and risk factors. Clinical Indicators: O2 sat drop intraoperative with normalization after intubation and oxygenation Treatment: Intubation and mechanical ventilation Risk Factors: Obese, heavy tobacco use, obstructive sleep apnea Please clarify and document your clinical opinion in the progress notes and discharge summary. Terms such as "probable", "suspected", "likely", "questionable", "possible", or "still to be ruled out" are acceptable. IF IN AGREEMENT, YOU MUST DOCUMENT ABOVE DIAGNOSTIC STATEMENT IN DAILY PROGRESS NOTES AND DISCHARGE SUMMARY. This document is not part of the patient's record. Thank You, Dionne Brannon RN [phone]
--- NOTE | 2017-03-02 11:43 | DIAGNOSTIC IMAGING REPORT ---
CHEST ONE VIEW PORTABLE HISTORY: Exchanged ET tube COMPARISON: Chest 03/02/2017. FINDINGS: Suboptimal study due to the patient's body habitus and portable examination. There are low lung volumes. The heart remains enlarged. Bibasilar densities and trace bilateral pleural effusions persist. There is mild central pulmonary gastric congestion without overt edema. The tip of the endotracheal tube appears to terminate approximately 4.9 cm from the saundra. Nasogastric tube is not well visualized but likely terminates below the diaphragm. IMPRESSION: 1. Endotracheal tube appears to terminate 4.9 cm from the saundra. 2. Nasogastric tube is difficult to visualize but likely resides below the diaphragm. 3. Mild pulmonary vascular congestion, cardiomegaly, trace bilateral pleural effusions. Electronically signed by: Antony West M.D. 03/02/2017 11:42 AM Dictated Date/Time: 03/02/2017 11:40 AM
[2017-03-02 11:58] LABS: HEMATOCRIT 30.1 % (42-52); HEMOGLOBIN 9.9 g/dL (14.0-18.0)
--- NOTE | 2017-03-02 12:06 | PROGRESS NOTE ---
DATE: 03/02/2017 CARDIOLOGY CONSULTATION FOLLOWUP NOTE The patient seen and examined. Chart, medications, telemetry reviewed. SUBJECTIVE: The patient is deeply sedated and intubated. Hemodynamically stable, unable to add additional information. Staff anticipates endotracheal tube change out later today. OBJECTIVE: VITAL SIGNS: Heart rate is 52, blood pressure is 128/72. NECK: Thick. There is no distinct jugular venous distention. LUNGS: Reveal coarse upper airway sounds. CARDIOVASCULAR: Regular. There is no S3 gallop. ABDOMEN: Soft. EXTREMITIES: Without cyanosis or clubbing. There is 1-2+ left greater than right lower extremity edema. DATA: EKG this morning reveals sinus bradycardia with first degree AV block, no ST segment changes or Q-waves. IMPRESSION: A 66-year-old male who suffered an intraoperative arrhythmic complication yesterday during elective hip replacement. The patient initially had bradycardia, followed by wide complex tachycardia after physical and chemical resuscitation including epinephrine and ropinirole. The patient underwent defibrillation x2, given hemodynamic stability in the setting of wide complex tachycardia with regular rhythm demonstrating sinus tachycardia versus atrial arrhythmia with right bundle branch block configuration. Defibrillation was appropriate in the setting of hemodynamic instability. No ventricular fibrillation was observed. The patient postop evaluation demonstrates normal to hyperdynamic LV function, normal resting EKG with resolve of prior right bundle branch block. Examinations have demonstrated evidence of mucus plugging and partial atelectasis of the right lung. Currently hemodynamically stable. We will reduce metoprolol to 5 mg IV q. 6 hours. Continue sedation as already ordered. Events do not appear to be acute coronary syndrome etiology, possibly secondary to bradyarrhythmia either from vasovagal or possible pulmonary etiology interprocedural. Staff anticipates referral for completion of hip surgery, would recommend proceeding as planned though at elevated risk and is appropriate in this setting. We will follow patient in the hospital.
--- NOTE | 2017-03-02 12:33 | Pharmacy Progress Note ---
Glycemic Control Progress Note Date of Service Mar 02, 2017. Scope Glycemic Pharmacist consulted for glycemic control to write orders per [facility] inpatient glycemic control protocol. Objective Accuchecks BSG (last 24hrs): Test 03/01/17 16:46 03/01/17 20:00 03/01/17 23:17 03/02/17 03:56 Bedside Glucose 144 mg/dl (70-99) 136 mg/dl (70-99) 175 mg/dl (70-99) 133 mg/dl (70-99) Test 03/02/17 05:28 Random Glucose 133 mg/dl (70-99) HbA1c: Test 03/01/17 18:00 Hemoglobin A1c 7.8 % (4.5-5.6) H Recent Pertinent Medications Outpatient Anti-diabetic Regimen (per preadmission med reconciliation): * Sitagliptin 100mg PO Q AM * A1c = 6.6 % Apr 2015 * Non-compliance reported Risk Factors for Insulin Resistance: * Steroids: may have received Dexamethasone 4mg in yves-articular injection 03/01 * IVF: currently ordered Normosol R @ 100cc/hr * Recent Surgery: POD # 1; L total hip arthroplasty, however surgery cut short due to intra-op arrest; to return to OR today * Diet: NPO * Mechanical Ventilation: yes Assessment & Plan ASSESSMENT: 03/01/17 * Type 2 diabetic admitted to ICU today following intra-op v. fib arrest following bradycardia * Patient had been in OR for DANY, surgery interrupted during arrest, resuscitated and transferred to ICU for stabilization * Currently he is intubated, receiving multiple sedatives / analgesic infusions * 1st set of ICU labs showed GLU 200 * Will begin a basal / bolus SQ regimen at this time based upon weight and mod- severe stressors; a small IV bolus of Reg Insulin will help obtain glycemic goal more quickly until basal and rapid acting SQ begin to take effect 03/02/17 * BSGs have ranged 122-175 over the last 24 hrs w/ current insulin orders * Significant stressors continue: mechanical ventilation, surgical stressors * Patient is to return to the OR today for completing of DANY, will need to be vigilant for steroid administration intra-op and post-op * Plan is to continue the current insulin regimen for another 24 hrs, unless other stressors surface (steroids, pressors, tube feeds) * A1c 7.8% 03/01/17 PLAN FOR INPATIENT GLYCEMIC CONTROL: * Lantus BID based upon the following scale: * BSG less than 110 give 0 units * BSG 110 - 160 give 15 units * BSG above 160 give 25 units * Novolog Q 4 hrs * Correction factor 15 mg/dl/unit * Carb ratio 1 unit per 5 grams CHO consumed * Goal range Low 140 mg/dL - High 170 mg/dL * Please note that the plan above was derived based on current level of insulin resistance and hospital stress. These recommendations are appropriate for inpatient admission only. Plan of care upon discharge will need to be reassessed to avoid potential outpatient hypo/hyperglycemia. Thank you.
[2017-03-02] MEDS ORDERED: FENTANYL CITRATE INJ 50 MCG/1 ML 2 ML VIAL ONE ×2 (14:14→15:50)
[2017-03-02] MEDS ORDERED: MIDAZOLAM HCL 1 MG/ML 2ML VIAL ONE ×2 (14:14→16:31)
[2017-03-02] MEDS ORDERED: ROCURONIUM BROMIDE 10 MG/ML 5 ML VIAL IV ONE (14:14)
[2017-03-02] MEDS ORDERED: PROPOFOL IV EMULSION 10 MG/ML 20 ML VIAL IV ONE (14:14)
[2017-03-02] MEDS ORDERED: BACITRACIN 50000 UNIT VIAL ONE (14:24)
[2017-03-02] MEDS ORDERED: CEFAZOLIN IV 3,000 MG in SYRINGE 0 ML IV SCH (14:30)
[2017-03-02] MEDS ORDERED: ROPIVACAINE 5MG/ML 30 ML 150 MG, BUPIVACAINE 0.5% MPF INJ 30 ML, EpINEphrine HCL INJ 0.... INFIL ONE ×8 (14:45)
--- NOTE | 2017-03-02 15:01 | PROGRESS NOTE ---
DATE: 03/02/2017 DATE: 03/02/2017 CHIEF COMPLAINT: Status post attempted total hip arthroplasty with intraoperative ventricular fibrillation postop day #1. PROGRESS: Martin was seen at bedside. He is still intubated. He has been cleared by the sales and service representative and anesthesia for return to the OR for implantation of the total hip arthroplasty. PHYSICAL EXAMINATION: He is currently sedated. The dressing is clean and dry, but I can not get any further exam than that. IMPRESSION: Status post attempted total hip arthroplasty with intraoperative cardiopulmonary event PLAN: He seems stable at this point to proceed with the completion of the total hip arthroplasty. The sales and service representative would like to get him extubated as soon as possible. I did speak with his daughter and signed the consent. I will continue to follow him closely postoperatively. FRANCHESCA
[2017-03-02] MEDS ORDERED: EpHEDrine SULFATE INJ 50 MG/ML AMP ONE (16:10)
--- NOTE | 2017-03-02 16:50 | DIAGNOSTIC IMAGING REPORT ---
INTRAOPERATIVE RADIOGRAPH CLINICAL HISTORY: Left hip arthroplasty. Fluoroscopy time: 41 seconds. FINDINGS: A single spot fluoroscopic view of the left hip from an arthroplasty procedure is presented. A bipolar left hip arthroplasty is in near anatomic alignment. A single cortical lag screw transfixes the acetabular cup. There is no evidence of fracture on the provided fluoroscopic image. IMPRESSION: Intraoperative image from a left hip arthroplasty procedure as above. Electronically signed by: Anam Layton M.D. 03/02/2017 4:48 PM Dictated Date/Time: 03/02/2017 4:47 PM
--- NOTE | 2017-03-02 16:52 | [facility] Post Operative Brief Note ---
Immediate Operative Summary Operative Date Mar 02, 2017. Pre-Operative Diagnosis Status post attempted left total hip arthroplasty with intraoperative ventricular fibrillation postop day #1. Post-Operative Diagnosis same as preop Procedure(s) Performed Left Anterior Total Hip Arthroplasty Surgeon Dr. Arian Dee Dianetic Counselor Surgeon(s) Rafat Ruiz PA-C Estimated Blood Loss 200mL Findings as above Specimens A. Left Femoral Head Complication(s) None Disposition Recovery Room / PACU
--- NOTE | 2017-03-02 17:14 | OPERATIVE REPORT ---
DATE OF OPERATION: 03/02/2017 PREOPERATIVE DIAGNOSIS: Primary osteoarthritis of the left hip, status post attempted total hip arthroplasty with intraoperative cardiopulmonary event POSTOPERATIVE DIAGNOSIS: Same. PROCEDURE: Completion of a left total hip arthroplasty. SURGEON: Dr. Arian Dee. BOILERMAKER WELDER: Kasi Ruiz PA-C, whose assistance was necessary for positioning, retraction, and closure. ANESTHESIA: General. COMPLICATIONS: None. CONDITION: Stable to ICU. IMPLANTS USED: I used a [employer] Taperloc total hip arthroplasty system with a size 17 pressfit stem, a size 56-mm pressfit cup with an E1 neutral poly liner and a size 40 ceramic head with a standard neck. INDICATIONS: Martin is a 66-year-old male who presented to my office with chronic left hip and groin pain. X-rays and clinical examination were diagnostic for osteoarthritis of the left hip. After failing conservative treatment, he elected to undergo a left total hip arthroplasty. On 03/01/2017, he arrived at the [facility] for the left total hip arthroplasty. He had a spinal anesthetic. An anterior approach was used and about a third of the way into the procedure, the femoral neck was resected and the acetabulum was reamed. After reaming of the acetabulum, anesthesia was having difficulties with his heart rate and there were significant concerns. He went into ventricular fibrillation. CPR was done. He was shocked 3 times and he was intubated and stabilized. He then went to the ICU. Bronchoscopy was done and he had a full cardiac evaluation. He is a heavy alcoholic and it was later found that he was drinking in the morning of surgery. The binder technician had him stabilized and wanted the hip finished before he extubated him. I then obtained a repeat consent from his daughter and took him back to the operating room on 03/02/2017. The left leg was then put back out to Purist leg positioner. The left hip was prepped and draped in sterile fashion. A time-out was done and the patient and operative extremity was properly identified. The previous yannick were removed. Incision was opened back up. A retractor was placed and the acetabulum was exposed. Time was spent with irrigation and clean out only previous blood clots. The acetabulum was once again reamed with a size 55 reamer and a size 56 G7 cup was then impacted into place under fluoroscopy to ensure appropriate version. I was able to get a good pressfit and a single 30-mm screw was placed. An E1 neutral poly liner was then snapped into place. The proximal humerus was then exposed. Sequential broaching up to a size 17 broach was done. A standard head and neck assembly was applied and the hip was reduced. I was happy with the overall fit of the implants and the alignment under fluoroscopy. The hip was then dislocated. The final size 17 standard offset stem was impacted into place. A size 40 ceramic head with a standard neck was then impacted onto the femoral stem. The hip was then reduced. Final fluoroscopic images showed anatomic alignment. The wound was then irrigated. The surrounding soft tissues were then injected with 100 mL of an orthopedic pain control cocktail. The wound was once again irrigated with 3 liters of normal saline solution with bacitracin. The capsule was then closed with #1 Vicryl and a drain was placed. The fascia was closed with #1 PDS and skin was closed with 2-0 Vicryl, 3-0 V-Loc suture, yannick and an incisional VAC dressing. He was then taken to the ICU in stable condition and he tolerated the procedure well. I attest to the content of the Intraoperative Record and any orders documented therein. Any exceptions are noted below. FRANCHESCA
--- NOTE | 2017-03-02 17:44 | Anesthesiology Progress Note ---
Anesthesia Post Op Note Date & Time Mar 02, 2017 at 17:41 Vital Signs Pain Intensity: 0.0 Vital Signs Past 12 Hours Date Time Temp Pulse Resp B/P (MAP) Pulse Ox O2 Delivery O2 Flow Rate FiO2 03/02/17 14:05 40 03/02/17 14:00 51 18 137/72 (93) 98 Mechanical Ventilator 40 03/02/17 12:00 97 Mechanical Ventilator 40 03/02/17 12:00 40 03/02/17 12:00 37.4 52 18 138/79 (98) 97 Mechanical Ventilator 40 03/02/17 11:51 53 03/02/17 11:49 40 03/02/17 10:00 52 18 128/72 (90) 97 Mechanical Ventilator 40 03/02/17 08:00 40 03/02/17 08:00 37.3 54 18 95/55 (68) 95 Mechanical Ventilator 40 03/02/17 08:00 95 Mechanical Ventilator 40 03/02/17 07:19 30 03/02/17 06:00 55 18 137/77 (97) 94 Mechanical Ventilator 30 03/02/17 06:00 54 Notes Pt Amnestic to Procedure: Yes Nausea / Vomiting: adequately controlled Pain: adequately controlled Airway Patency, RR, SpO2: stable & adequate BP & HR: stable & adequate Hydration State: stable & adequate Anesthetic Complications: no major complications apparent Patient kept intubated and brought to the ICU with supplemental oxygen via ambubag with PEEP (10). He is sedated and stable in ICU. Full report given to ICU team (physician and PA).
[2017-03-02 17:55] LABS: HEMATOCRIT 30.6 % (42-52); HEMOGLOBIN 9.8 g/dL (14.0-18.0)
[2017-03-02] MEDS ORDERED: ASPIRIN 325 MG ECTAB PO SCH (21:00)
[2017-03-02] MEDS: CEFAZOLIN IV 3,000 MG in SYRINGE 0 ML IV SCH (21:48)
[2017-03-02] MEDS: ASPIRIN 81 MG CHEW NG SCH (21:48)
--- NOTE | 2017-03-02 22:59 | DIAGNOSTIC IMAGING REPORT ---
L PELVIS/UNILATERAL HIP 1 VIEW CLINICAL HISTORY: 66 years-old Male presenting with postop total left hip replacement. TECHNIQUE: Frontal view of the pelvis and crosstable lateral view of the left hip were obtained. COMPARISON: 03/01/2017. FINDINGS: Postsurgical changes of total left hip arthroplasty. Overlying skin yannick and a surgical drain noted. No malalignment. No acute fracture. No hardware complication is evident allowing for image quality. Congruent right hip joint. A venous catheter is likely in place in the right femoral region. IMPRESSION: Expected postsurgical changes status post total left hip arthroplasty. Electronically signed by: Raghavendra Recinos M.D. 03/02/2017 10:58 PM Dictated Date/Time: 03/02/2017 10:56 PM
[2017-03-02 23:45] LABS: HEMATOCRIT 29.4 % (42-52); HEMOGLOBIN 9.6 g/dL (14.0-18.0)
[2017-03-03] VITALS (17 sets, daily range): BP systolic 125–190; BP diastolic 60–95; PULSE 54–103; TEMP 36.5–36.8; O2SAT 92–100
[2017-03-03] MEDS: INSULIN ASPART 100 UNITS/ML 3 ML PEN SC SCH ×6 (00:14→21:13)
[2017-03-03] MEDS: FENTANYL 1250MCG/250ML NSS 250 ML IV PRN (02:19)
[2017-03-03] MEDS: NORMOSOL R 1,000 ML IV SCH ×3 (03:59→21:19)
[2017-03-03] MEDS: METOPROLOL TARTRATE 1 MG/ML VIAL IV. SCH ×5 (05:40→16:48)
[2017-03-03] MEDS: CEFAZOLIN IV 3,000 MG in SYRINGE 0 ML IV SCH ×2 (05:42→14:12)
[2017-03-03 05:53] LABS: HEMATOCRIT 29.2 % (42-52); HEMOGLOBIN 9.4 g/dL (14.0-18.0); IG# 0.03 K/uL (0.00-0.02); LYMPH % 4.9 %; LYMPH ABS # 0.38 K/uL (1.2-3.4); MEAN CELL VOLUME 100.3 fL (80-100); MEAN CORPUSCULAR HEMOGLOBIN 32.3 pg (25-34); MEAN CORPUSCULAR HGB CONC 32.2 g/dl (32-36); MEAN PLATELET VOLUME 9.1 fL (7.4-10.4); MONO % 8.3 %; MONO ABS # 0.64 K/uL (0.11-0.59); NEUT % 86.4 %; NEUT ABS # 6.68 K/uL (1.4-6.5); PLATELET COUNT 113 K/uL (130-400); RED CELL DISTRIBUTION WIDTH CV 13.9 % (11.5-14.5); RED CELL DISTRIBUTION WIDTH SD 50.6 fL (36.4-46.3); WHITE BLOOD COUNT 7.73 K/uL (4.8-10.8)
[2017-03-03 06:25] LABS: CALCIUM 7.6 mg/dl (8.5-10.1); CREATININE 1.44 mg/dl (0.60-1.40); POTASSIUM 4.5 mmol/L (3.5-5.1)
[2017-03-03 06:28] LABS: PHOSPHORUS 4.2 mg/dl (2.5-4.9)
[2017-03-03] MEDS ORDERED: FUROSEMIDE INJ 80 MG in SYRINGE 0 ML IV STA (06:53)
[2017-03-03] MEDS ORDERED: FUROSEMIDE 40 MG/4 ML VIAL IV STA (06:55)
[2017-03-03] MEDS: PANTOprazole INJ 40 MG in SYRINGE 0 ML IV SCH (07:45)
--- NOTE | 2017-03-03 07:45 | DIAGNOSTIC IMAGING REPORT ---
SINGLE VIEW CHEST CLINICAL HISTORY: Respiratory failure. FINDINGS: An AP, portable, upright chest radiograph is compared to study dated 03/02/2017. The examination is degraded by portable technique, large body habitus, motion artifact, and patient rotation. The an endotracheal tube is unchanged in position. The heart is enlarged and there is atherosclerotic calcification of the thoracic aorta. Mild pulmonary vascular congestion persists. There are low lung volumes with bibasilar atelectasis. No large pleural effusion or pneumothorax is seen. The skeletal structures are osteopenic. The bony thorax is grossly intact. IMPRESSION: 1. An endotracheal tube is again noted. 2. Cardiomegaly with evidence of mild congestive failure. This is similar to yesterday. Electronically signed by: Anam Layton M.D. 03/03/2017 7:43 AM Dictated Date/Time: 03/03/2017 7:42 AM
[2017-03-03] MEDS: ASPIRIN 81 MG CHEW NG SCH ×2 (07:46→21:14)
[2017-03-03] MEDS: INSULIN GLARGINE SOLOSTAR 100 UNITS/ML 3 ML PEN SC SCH ×2 (08:17→21:00)
[2017-03-03] MEDS: FoLIC ACID INJ 1 MG in SYRINGE 9.8 ML IV SCH (08:54)
[2017-03-03] MEDS: THIAMINE HCL INJ 100 MG in SYRINGE 9 ML IV SCH ×2 (08:54→21:14)
--- NOTE | 2017-03-03 09:13 | Pulmonology Progress Note ---
Pulmonary Progress Note Date of Service Mar 03, 2017. Attending Dr. Garcia Subjective Patient seen and examined this morning. He is still intubated, but abusable today. Post op day # 2 of left hip arthroplasty. He tolerated revision in the operating room well. He is on fentanyl and Precedex. Currently, undergoing CPAP trial. Objective VS reviewed. Gen: Awake, intubated. Opens eyes spontaneously. CVS: S1, S2, RRR Lungs: Diminished breath sound bilaterally. Abd: obese, NT/NT Ext: left hip dressing in place, trace bilateral lower extremity edema, no cyanosis, no clubbing Labs reviewed. Cr. 1.44 today Blood cultures 01/30/2017--pending VBG this morning 7.34/48/37/25 Vent setting: Volume assist control, PEEP 8, FIO2 .6, VT 650, RR 18 Imaging reviewed. Medications reviewed. Assessment & Plan Ventilator dependent respiratory failure Cardiac arrest Morbid obesity Possible obstructive sleep apnea Obesity hypoventilation syndrome Tobacco use disorder Alcohol abuse Osteoarthritis Mucus plugging Atelectasis Mr. Restrepo is doing well this morning from a respiratory standpoint . He is pulling good tidal volumes on CPAP. He is arousable and following simple commands. VBG from this morning is adequate. He remains on precedex and fentynl for agitation and pain control. Recommendations Extubate to BIPAP settings 16/8, FIO2 40%. Can titrate to oxymizer or nasal canula if he is able to tolerate with desaturations and hypercapnia. He may continue to benefit from BIPAP at night Continue with nebulizer treatments PRN Encourage incentive spirometry. OT/PT when he is able to weight bear. Continue to monitor for alcohol withdrawal. He should have full sleep study done and PFT done as an outpatient. Discussed plan with Dr. Hensley. Data Medications: Current Inpatient Medications Medications (Trade) Dose Ordered Sig/Sujey Route Start Time Stop Time Status Last Admin Dose Admin Midazolam HCl 250 ml @ 0 mls/hr Q0M PRN IV 03/01/17 11:44 03/31/17 11:43 03/02/17 20:17 20 MLS/HR Fentanyl Citrate 250 ml @ 0 mls/hr Q0M PRN IV 03/01/17 11:45 03/15/17 11:44 03/03/17 02:19 30 MLS/HR Levalbuterol (Xopenex 1.25MG/ 3ML Neb) 1.25 mg Q4 PRN INH 03/01/17 12:00 03/31/17 11:59 03/02/17 08:00 1.25 MG Pantoprazole Sodium 40 mg/ Syringe 10 ml @ 5 mls/min DAILY IV 03/02/17 09:00 04/01/17 08:59 03/03/17 07:45 5 MLS/MIN Glucose (Glucose 40% Gel) 15-30 GRAMS 15 GRAMS... UD PRN PO 03/01/17 12:00 03/31/17 11:59 Glucose (Glucose Chew Tab) 4-8 Tablets 4 Tabl... UD PRN PO 03/01/17 12:00 03/31/17 11:59 Dextrose (Dextrose 50% 50ML Syringe) 25-50ML OF 50% DW IV FOR... UD PRN IV 03/01/17 12:00 03/31/17 11:59 Glucagon (Glucagon Inj) 1 mg UD PRN SQ 03/01/17 12:00 03/31/17 11:59 Miscellaneous Information (Consult Glycemic Management Pharmacy) 1 ea UD PRN N/A 03/01/17 12:30 03/31/17 12:29 Glucose (Glucose 40% Gel) 15-30 GRAMS 15 GRAMS... UD PRN PO 03/01/17 13:30 03/31/17 13:29 Glucose (Glucose Chew Tab) 4-8 Tablets 4 Tabl... UD PRN PO 03/01/17 13:30 03/31/17 13:29 Dextrose (Dextrose 50% 50ML Syringe) 25-50ML OF 50% DW IV FOR... UD PRN IV 03/01/17 13:30 03/31/17 13:29 Glucagon (Glucagon Inj) 1 mg UD PRN SQ 03/01/17 13:30 03/31/17 13:29 Insulin Aspart (novoLOG ASPART) SLIDING SCALE Q4 SC 03/01/17 16:00 03/31/17 15:59 03/03/17 08:16 2 UNITS Insulin Glargine (Lantus Solostar Pen) see protocol text BID SC 03/01/17 21:00 03/31/17 20:59 03/03/17 08:17 25 UNITS Dexmedetomidine HCl 400 mcg/ Sodium Chloride 100 ml @ 0 mls/hr Q0M PRN IV 03/01/17 15:00 03/08/17 14:59 03/02/17 12:40 7.3 MLS/HR Parenteral Electrolyte Solution 1,000 ml @ 100 mls/hr Q10H IV 03/01/17 21:00 03/31/17 20:59 03/03/17 03:59 100 MLS/HR Acetaminophen 100 ml @ 400 mls/hr Q6H PRN IV 03/02/17 01:00 04/01/17 00:59 03/02/17 01:18 400 MLS/HR Metoprolol Tartrate (Lopressor Iv) 5 mg Q6 IV. 03/02/17 12:00 03/31/17 17:59 03/03/17 06:17 5 MG Thiamine HCl 100 mg/Syringe 10 ml @ 2 mls/min Q12H IV 03/02/17 09:45 04/01/17 09:44 03/02/17 21:48 2 MLS/MIN Folic Acid 1 mg/ Syringe 10 ml @ 5 mls/min DAILY@0900 IV 03/02/17 09:45 04/01/17 09:44 03/02/17 10:10 5 MLS/MIN Cefazolin Sodium 3000 mg/Syringe 15 ml @ 2.5 mls/min Q8H IV 03/02/17 18:00 03/03/17 17:59 03/03/17 05:42 2.5 MLS/MIN Aspirin (Aspirin Chew) 324 mg BID NG 03/02/17 21:00 04/01/17 20:59 03/03/17 07:46 324 MG Vital Signs: Date Time Temp Pulse Resp B/P (MAP) Pulse Ox O2 Delivery O2 Flow Rate FiO2 03/03/17 07:15 60 03/03/17 06:17 61 168/77 03/03/17 06:00 70 19 159/71 (100) 99 Mechanical Ventilator 45 134/80 (98) 03/03/17 05:09 45 03/03/17 05:09 60 03/03/17 04:00 Mechanical Ventilator 45 03/03/17 04:00 36.5 61 18 146/64 (91) 99 03/03/17 04:00 60 03/03/17 02:01 60 03/03/17 02:00 56 18 140/62 (88) 100 Mechanical Ventilator 60 147/79 (101) 03/03/17 00:01 36.8 55 18 153/65 (94) 100 Mechanical Ventilator 60 152/84 (106) 03/03/17 00:00 55 03/02/17 23:59 60 03/02/17 23:59 Mechanical Ventilator 30 03/02/17 23:32 60 03/02/17 22:30 60 03/02/17 22:01 54 18 151/86 (99) 100 168/70 03/02/17 21:01 53 18 156/84 (103) 100 169/73 03/02/17 20:49 36.9 03/02/17 20:27 67 18 121/65 (84) 99 134/61 03/02/17 20:01 52 18 160/87 (106) 100 175/75 03/02/17 20:00 52 18 (105) 100 172/75 03/02/17 20:00 60 03/02/17 20:00 60 03/02/17 20:00 Mechanical Ventilator 60 03/02/17 19:01 55 18 147/81 (96) 100 162/70 03/02/17 18:51 68 118/61 03/02/17 18:31 56 18 131/75 (86) 99 145/64 03/02/17 18:05 36.5 67 18 118/61 (72) 98 Mechanical Ventilator 60 03/02/17 18:01 68 18 118/61 (75) 98 133/58 03/02/17 18:00 68 18 118/61 (72) 98 Mechanical Ventilator 60 03/02/17 18:00 Mechanical Ventilator 60 03/02/17 18:00 60 03/02/17 18:00 60 03/02/17 17:55 71 18 114/65 (74) 97 Mechanical Ventilator 60 03/02/17 17:50 70 18 114/63 (70) 96 Mechanical Ventilator 60 03/02/17 17:45 72 18 111/61 (71) 94 Mechanical Ventilator 60 03/02/17 17:40 36.9 77 18 113/61 (73) 93 Mechanical Ventilator 60 03/02/17 17:35 77 18 123/64 (72) 92 Mechanical Ventilator 60 03/02/17 17:32 36.9 76 18 105/64 (73) 93 Mechanical Ventilator 60 03/02/17 15:35 60 03/02/17 14:05 40 03/02/17 14:00 51 18 137/72 (93) 98 Mechanical Ventilator 40 03/02/17 12:00 97 Mechanical Ventilator 40 03/02/17 12:00 40 03/02/17 12:00 37.4 52 18 138/79 (98) 97 Mechanical Ventilator 40 03/02/17 11:51 53 03/02/17 11:49 40 03/02/17 10:00 52 18 128/72 (90) 97 Mechanical Ventilator 40 Laboratory Results: Last 24 Hours Test 03/02/17 11:26 03/02/17 11:47 03/02/17 17:48 03/02/17 17:56 Bedside Glucose 149 mg/dl 136 mg/dl Hemoglobin 9.9 g/dL 9.8 g/dL Hematocrit 30.1 % 30.6 % Test 03/02/17 20:26 03/02/17 23:29 03/02/17 23:36 03/02/17 23:39 Bedside Glucose 130 mg/dl 208 mg/dl 174 mg/dl Hemoglobin 9.6 g/dL Hematocrit 29.4 % Test 03/03/17 03:52 03/03/17 05:42 Bedside Glucose 181 mg/dl White Blood Count 7.73 K/uL Red Blood Count 2.91 M/uL Hemoglobin 9.4 g/dL Hematocrit 29.2 % Mean Corpuscular Volume 100.3 fL Mean Corpuscular Hemoglobin 32.3 pg Mean Corpuscular Hemoglobin Concent 32.2 g/dl Platelet Count 113 K/uL Mean Platelet Volume 9.1 fL Neutrophils (%) (Auto) 86.4 % Lymphocytes (%) (Auto) 4.9 % Monocytes (%) (Auto) 8.3 % Eosinophils (%) (Auto) 0.0 % Basophils (%) (Auto) 0.0 % Neutrophils # (Auto) 6.68 K/uL Lymphocytes # (Auto) 0.38 K/uL Monocytes # (Auto) 0.64 K/uL Eosinophils # (Auto) 0.00 K/uL Basophils # (Auto) 0.00 K/uL RDW Standard Deviation 50.6 fL RDW Coefficient of Variation 13.9 % Immature Granulocyte % (Auto) 0.4 % Immature Granulocyte # (Auto) 0.03 K/uL Venous Blood pH 7.34 Venous Blood Partial Pressure CO2 48 mmHg Venous Blood Partial Pressure O2 37 mmHg Venous Blood HCO3 25 mmol/L Venous Blood Oxygen Saturation 65.3 % Venous Blood Base Excess -0.7 mEq/L Sodium Level 137 mmol/L Potassium Level 4.5 mmol/L Chloride Level 104 mmol/L Carbon Dioxide Level 24 mmol/L Anion Gap 9.0 mmol/L Blood Urea Nitrogen 23 mg/dl Creatinine 1.44 mg/dl Est Creatinine Clear Calc Drug Dose 79.1 ml/min Estimated GFR () 59.1 Estimated GFR (Non- 51.0 BUN/Creatinine Ratio 16.1 Random Glucose 192 mg/dl Calcium Level 7.6 mg/dl Phosphorus Level 4.2 mg/dl Magnesium Level 2.1 mg/dl
--- NOTE | 2017-03-03 09:37 | Critical Care Progress Note ---
Critical Care Progress Note Date of Service Mar 03, 2017. Attending Subjective He is awake and following commands. No sputum of substance. No worsening hypoxemia. No wheezing/rhonchi. His sedation was reduced and a PS wean trial going well. Reviewed the case with the team. Concerns regarding pulmonary toilette and his heavy alcohol use discussed. It is important that he progress forward or will be increasingly more at risk for complications both pulmonary and neurological (withdrawal). Objective Gen--sedated HEENT--no focal target Respiratory--exchange acceptable and improved on the right thanks to efforts of respiratory Cardio--rate and volume ok GI--functional Musculo--left hip wound noted Neuro--sedated Derm--no acute changes Current SOFA Score SOFA Score Response (Comments) Value PaO2/FiO2 (mmHg) < 300 2 SaO2 / FIO2 221 - 301 1 Platelets (x10) > 150 0 Bilirubin (mg/dL) < 1.2 0 [place] Coma Score 10 - 12 2 Level of Hypotension No Hypotension 0 Creatinine (mg/dL) < 1.2 0 Total 5 Assessment & Plan Obesity/Hypoventilation/ETOH/Tobacco-Abuse--status post intraoperative event that has delayed his surgery. Will plan for extubation and mobilization today. Remove any unnecessary lines and simplify meds. Emphasize pulmonary toilette. 1. Pulmonary --as above 2. Cardio--PRN dose of Lasix 3. GI--will need to start PO 4. Neuropsych--difficult situation at best. Very heavy ETOH history. 5. Musculo--postoperative care per orthopedics. Consults & Procedures Consultants: no new consults today Procedures: anticipate tube change. Anesthesia may utilize an a-line. PIC and or MidLine with eye to remove the femoral line. Data Medications: Current Inpatient Medications Medications (Trade) Dose Ordered Sig/Sujey Route Start Time Stop Time Status Last Admin Dose Admin Midazolam HCl 250 ml @ 0 mls/hr Q0M PRN IV 03/01/17 11:44 03/31/17 11:43 03/02/17 20:17 20 MLS/HR Fentanyl Citrate 250 ml @ 0 mls/hr Q0M PRN IV 03/01/17 11:45 03/15/17 11:44 03/03/17 02:19 30 MLS/HR Levalbuterol (Xopenex 1.25MG/ 3ML Neb) 1.25 mg Q4 PRN INH 03/01/17 12:00 03/31/17 11:59 03/02/17 08:00 1.25 MG Pantoprazole Sodium 40 mg/ Syringe 10 ml @ 5 mls/min DAILY IV 03/02/17 09:00 04/01/17 08:59 03/03/17 07:45 5 MLS/MIN Glucose (Glucose 40% Gel) 15-30 GRAMS 15 GRAMS... UD PRN PO 03/01/17 12:00 03/31/17 11:59 Glucose (Glucose Chew Tab) 4-8 Tablets 4 Tabl... UD PRN PO 03/01/17 12:00 03/31/17 11:59 Dextrose (Dextrose 50% 50ML Syringe) 25-50ML OF 50% DW IV FOR... UD PRN IV 03/01/17 12:00 03/31/17 11:59 Glucagon (Glucagon Inj) 1 mg UD PRN SQ 03/01/17 12:00 03/31/17 11:59 Miscellaneous Information (Consult Glycemic Management Pharmacy) 1 ea UD PRN N/A 03/01/17 12:30 03/31/17 12:29 Glucose (Glucose 40% Gel) 15-30 GRAMS 15 GRAMS... UD PRN PO 03/01/17 13:30 03/31/17 13:29 Glucose (Glucose Chew Tab) 4-8 Tablets 4 Tabl... UD PRN PO 03/01/17 13:30 03/31/17 13:29 Dextrose (Dextrose 50% 50ML Syringe) 25-50ML OF 50% DW IV FOR... UD PRN IV 03/01/17 13:30 03/31/17 13:29 Glucagon (Glucagon Inj) 1 mg UD PRN SQ 03/01/17 13:30 03/31/17 13:29 Insulin Aspart (novoLOG ASPART) SLIDING SCALE Q4 SC 03/01/17 16:00 03/31/17 15:59 03/03/17 08:16 2 UNITS Insulin Glargine (Lantus Solostar Pen) see protocol text BID SC 03/01/17 21:00 03/31/17 20:59 03/03/17 08:17 25 UNITS Dexmedetomidine HCl 400 mcg/ Sodium Chloride 100 ml @ 0 mls/hr Q0M PRN IV 03/01/17 15:00 03/08/17 14:59 03/02/17 12:40 7.3 MLS/HR Parenteral Electrolyte Solution 1,000 ml @ 100 mls/hr Q10H IV 03/01/17 21:00 03/31/17 20:59 03/03/17 03:59 100 MLS/HR Acetaminophen 100 ml @ 400 mls/hr Q6H PRN IV 03/02/17 01:00 04/01/17 00:59 03/02/17 01:18 400 MLS/HR Metoprolol Tartrate (Lopressor Iv) 5 mg Q6 IV. 03/02/17 12:00 03/31/17 17:59 03/03/17 06:17 5 MG Thiamine HCl 100 mg/Syringe 10 ml @ 2 mls/min Q12H IV 03/02/17 09:45 04/01/17 09:44 03/03/17 08:54 2 MLS/MIN Folic Acid 1 mg/ Syringe 10 ml @ 5 mls/min DAILY@0900 IV 03/02/17 09:45 04/01/17 09:44 03/03/17 08:54 5 MLS/MIN Cefazolin Sodium 3000 mg/Syringe 15 ml @ 2.5 mls/min Q8H IV 03/02/17 18:00 03/03/17 17:59 03/03/17 05:42 2.5 MLS/MIN Aspirin (Aspirin Chew) 324 mg BID NG 03/02/17 21:00 04/01/17 20:59 03/03/17 07:46 324 MG Vital Signs: Date Time Temp Pulse Resp B/P (MAP) Pulse Ox O2 Delivery O2 Flow Rate FiO2 03/03/17 08:00 Mechanical Ventilator 45 03/03/17 08:00 60 03/03/17 08:00 55 14 125/61 (82) 98 Mechanical Ventilator 45 03/03/17 07:15 60 03/03/17 06:17 61 168/77 03/03/17 06:00 70 19 159/71 (100) 99 Mechanical Ventilator 45 134/80 (98) 03/03/17 05:09 45 03/03/17 05:09 60 03/03/17 04:00 Mechanical Ventilator 45 03/03/17 04:00 36.5 61 18 146/64 (91) 99 03/03/17 04:00 60 03/03/17 02:01 60 03/03/17 02:00 56 18 140/62 (88) 100 Mechanical Ventilator 60 147/79 (101) 03/03/17 00:01 36.8 55 18 153/65 (94) 100 Mechanical Ventilator 60 152/84 (106) 03/03/17 00:00 55 03/02/17 23:59 60 03/02/17 23:59 Mechanical Ventilator 30 03/02/17 23:32 60 03/02/17 22:30 60 03/02/17 22:01 54 18 151/86 (99) 100 168/70 03/02/17 21:01 53 18 156/84 (103) 100 169/73 03/02/17 20:49 36.9 03/02/17 20:27 67 18 121/65 (84) 99 134/61 03/02/17 20:01 52 18 160/87 (106) 100 175/75 03/02/17 20:00 52 18 (105) 100 172/75 03/02/17 20:00 60 03/02/17 20:00 60 03/02/17 20:00 Mechanical Ventilator 60 03/02/17 19:01 55 18 147/81 (96) 100 162/70 03/02/17 18:51 68 118/61 03/02/17 18:31 56 18 131/75 (86) 99 145/64 03/02/17 18:05 36.5 67 18 118/61 (72) 98 Mechanical Ventilator 60 03/02/17 18:01 68 18 118/61 (75) 98 133/58 03/02/17 18:00 68 18 118/61 (72) 98 Mechanical Ventilator 60 03/02/17 18:00 Mechanical Ventilator 60 03/02/17 18:00 60 03/02/17 18:00 60 03/02/17 17:55 71 18 114/65 (74) 97 Mechanical Ventilator 60 03/02/17 17:50 70 18 114/63 (70) 96 Mechanical Ventilator 60 03/02/17 17:45 72 18 111/61 (71) 94 Mechanical Ventilator 60 03/02/17 17:40 36.9 77 18 113/61 (73) 93 Mechanical Ventilator 60 03/02/17 17:35 77 18 123/64 (72) 92 Mechanical Ventilator 60 03/02/17 17:32 36.9 76 18 105/64 (73) 93 Mechanical Ventilator 60 03/02/17 15:35 60 03/02/17 14:05 40 03/02/17 14:00 51 18 137/72 (93) 98 Mechanical Ventilator 40 03/02/17 12:00 97 Mechanical Ventilator 40 03/02/17 12:00 40 03/02/17 12:00 37.4 52 18 138/79 (98) 97 Mechanical Ventilator 40 03/02/17 11:51 53 03/02/17 11:49 40 03/02/17 10:00 52 18 128/72 (90) 97 Mechanical Ventilator 40 Laboratory Results: Last 24 Hours Test 03/02/17 11:26 03/02/17 11:47 03/02/17 17:48 03/02/17 17:56 Bedside Glucose 149 mg/dl 136 mg/dl Hemoglobin 9.9 g/dL 9.8 g/dL Hematocrit 30.1 % 30.6 % Test 03/02/17 20:26 03/02/17 23:29 03/02/17 23:36 03/02/17 23:39 Bedside Glucose 130 mg/dl 208 mg/dl 174 mg/dl Hemoglobin 9.6 g/dL Hematocrit 29.4 % Test 03/03/17 03:52 03/03/17 05:42 Bedside Glucose 181 mg/dl White Blood Count 7.73 K/uL Red Blood Count 2.91 M/uL Hemoglobin 9.4 g/dL Hematocrit 29.2 % Mean Corpuscular Volume 100.3 fL Mean Corpuscular Hemoglobin 32.3 pg Mean Corpuscular Hemoglobin Concent 32.2 g/dl Platelet Count 113 K/uL Mean Platelet Volume 9.1 fL Neutrophils (%) (Auto) 86.4 % Lymphocytes (%) (Auto) 4.9 % Monocytes (%) (Auto) 8.3 % Eosinophils (%) (Auto) 0.0 % Basophils (%) (Auto) 0.0 % Neutrophils # (Auto) 6.68 K/uL Lymphocytes # (Auto) 0.38 K/uL Monocytes # (Auto) 0.64 K/uL Eosinophils # (Auto) 0.00 K/uL Basophils # (Auto) 0.00 K/uL RDW Standard Deviation 50.6 fL RDW Coefficient of Variation 13.9 % Immature Granulocyte % (Auto) 0.4 % Immature Granulocyte # (Auto) 0.03 K/uL Venous Blood pH 7.34 Venous Blood Partial Pressure CO2 48 mmHg Venous Blood Partial Pressure O2 37 mmHg Venous Blood HCO3 25 mmol/L Venous Blood Oxygen Saturation 65.3 % Venous Blood Base Excess -0.7 mEq/L Sodium Level 137 mmol/L Potassium Level 4.5 mmol/L Chloride Level 104 mmol/L Carbon Dioxide Level 24 mmol/L Anion Gap 9.0 mmol/L Blood Urea Nitrogen 23 mg/dl Creatinine 1.44 mg/dl Est Creatinine Clear Calc Drug Dose 79.1 ml/min Estimated GFR () 59.1 Estimated GFR (Non- 51.0 BUN/Creatinine Ratio 16.1 Random Glucose 192 mg/dl Calcium Level 7.6 mg/dl Phosphorus Level 4.2 mg/dl Magnesium Level 2.1 mg/dl
--- NOTE | 2017-03-03 10:09 | Pharmacy Progress Note ---
Glycemic Control Progress Note Date of Service Mar 03, 2017. Scope Glycemic Pharmacist consulted for glycemic control to write orders per [facility] inpatient glycemic control protocol. Objective Accuchecks BSG (last 24hrs): Test 03/02/17 11:26 03/02/17 17:56 03/02/17 20:26 03/02/17 23:36 Bedside Glucose 149 mg/dl (70-99) 136 mg/dl (70-99) 130 mg/dl (70-99) 208 mg/dl (70-99) Test 03/02/17 23:39 03/03/17 03:52 03/03/17 05:42 Bedside Glucose 174 mg/dl (70-99) 181 mg/dl (70-99) Random Glucose 192 mg/dl (70-99) HbA1c: Test 03/01/17 18:00 Hemoglobin A1c 7.8 % (4.5-5.6) H Recent Pertinent Medications Outpatient Anti-diabetic Regimen (per preadmission med reconciliation): * Sitagliptin 100mg PO Q AM * A1c = 6.6 % Apr 2015 * Non-compliance reported Risk Factors for Insulin Resistance: * Steroids: Dexamethasone 4mg in yves-articular injection 03/02/17 * IVF: currently ordered Normosol R @ 100cc/hr * Recent Surgery: POD # 1; s/p completion of L DANY * Diet: NPO * Mechanical Ventilation: yes Assessment & Plan ASSESSMENT: 03/01/17 * Type 2 diabetic admitted to ICU today following intra-op v. fib arrest following bradycardia * Patient had been in OR for DANY, surgery interrupted during arrest, resuscitated and transferred to ICU for stabilization * Currently he is intubated, receiving multiple sedatives / analgesic infusions * 1st set of ICU labs showed GLU 200 * Will begin a basal / bolus SQ regimen at this time based upon weight and mod- severe stressors; a small IV bolus of Reg Insulin will help obtain glycemic goal more quickly until basal and rapid acting SQ begin to take effect 03/02/17 * BSGs have ranged 122-175 over the last 24 hrs w/ current insulin orders * Significant stressors continue: mechanical ventilation, surgical stressors * Patient is to return to the OR today for completing of DANY, will need to be vigilant for steroid administration intra-op and post-op * Plan is to continue the current insulin regimen for another 24 hrs, unless other stressors surface (steroids, pressors, tube feeds) * A1c 7.8% 03/01/17 03/03/17 * BSGs have ranged 130-208 over the last 24 hours * BSGs have been trending higher, likely due to surgical stressors and administration of dexamethasone in OR yesterday - typically the insulin resistance induced by dexamethasone lasts ~24-48 hrs, shorter duration more probable with a single dose * Fasting BSG 190's this AM with 30 units of Lantus on board and after receiving 2 units of Novolog correction overnight - he is basal insulin deficient and will receive a higher dose of Lantus this AM per the current scale * Plan is to extubate the patient this AM, and he may be ordered a diet later in the day if all goes well PLAN FOR INPATIENT GLYCEMIC CONTROL: * Lantus BID based upon the following scale: * BSG less than 110 give 0 units * BSG 110 - 140 give 15 units * BSG above 140 give 25 units * Novolog Q 4 hrs * Correction factor 15 mg/dl/unit * Carb ratio 1 unit per 5 grams CHO consumed * Goal range Low 130 mg/dL - High 160 mg/dL * Please note that the plan above was derived based on current level of insulin resistance and hospital stress. These recommendations are appropriate for inpatient admission only. Plan of care upon discharge will need to be reassessed to avoid potential outpatient hypo/hyperglycemia. Thank you.
[2017-03-03] MEDS ORDERED: NURSING VERBAL MED ORDER ONE ×3 (11:30→16:15)
--- NOTE | 2017-03-03 12:34 | DIAGNOSTIC IMAGING REPORT ---
SINGLE VIEW CHEST CLINICAL HISTORY: PICC placement. FINDINGS: An AP, portable, upright chest radiograph is compared to performed earlier the same day 03/03/2017. The examination is degraded by portable technique, large body habitus, motion artifact, and patient rotation. The endotracheal tube has been removed. A right PICC line has been placed. The tip projects over the innominate vein approximately 5 cm above the saundra. The heart is enlarged and there is atherosclerotic calcification of the thoracic aorta. Mild pulmonary vascular congestion persists. There are low lung volumes with bibasilar atelectasis. No large pleural effusion or pneumothorax is seen. The skeletal structures are osteopenic. The bony thorax is grossly intact. IMPRESSION: 1. The endotracheal tube has been removed. 2. A right PICC line has been placed as above. 3. Cardiomegaly with mild congestive change. This is similar to yesterday. Electronically signed by: Anam Layton M.D. 03/03/2017 12:33 PM Dictated Date/Time: 03/03/2017 12:32 PM
--- NOTE | 2017-03-03 13:28 | DIAGNOSTIC IMAGING REPORT ---
CHEST ONE VIEW PORTABLE HISTORY: picc placement/catheter repositioned COMPARISON: Chest 03/03/2017. FINDINGS: No pneumothorax. Small bilateral pleural effusions and cardiomegaly persist. Patchy density within the right medial lung base. Mild central pulmonary vascular congestion without overt edema. The heart remains mildly enlarged. Hazy appearance to the left lung base. The right PICC has been advanced and appears to terminate in the expected location of the proximal SVC. IMPRESSION: 1. The right PICC has been advanced and appears to reside within the expected location of the proximal SVC. 2. Small bilateral pleural effusions and mild pulmonary basilar congestion persist. 3. Nonspecific patchy density within the right medial lung base which could represent atelectasis or pneumonia. Electronically signed by: Antony West M.D. 03/03/2017 1:27 PM Dictated Date/Time: 03/03/2017 1:23 PM
--- NOTE | 2017-03-03 16:44 | PROGRESS NOTE ---
DATE: 03/03/2017 CHIEF COMPLAINT: Status post left total hip arthroplasty postop day #1. PROGRESS: Martin was seen and examined at bedside today. He has been extubated. He currently has a BIPAP machine on. He is awake and alert but was not very responsive. He had just been taken off the vent. PHYSICAL EXAMINATION: LEFT HIP: The incisional VAC is in place. His leg lengths are essentially equal. LABORATORIES: He has an H&H today of 9.4 and 29.2. His glucose is running a little high at 195. VITAL SIGNS: Generally stable on BiPAP. He is a little bradycardic. He has a Garcia catheter in place. He has not been out of bed yet. X-rays postoperatively of the left hip show the prosthesis to be in anatomic alignment without any evidence of fracture, dislocation or loosening. IMPRESSION: Status post left total hip arthroplasty postop day #1. PLAN: At this point he has been extubated, but he still needs to get up and out of bed. We will see how he does later today. Anesthesia said that they are going to treat some of his alcoholism with a little alcohol later tonight. We will see how he does through the tonight and into tomorrow. We would like to get him home as soon as possible. He is currently on aspirin 325 mg twice a day for DVT prophylaxis. We are a little hesitant to do much more than that and incite any more bleeding.
[2017-03-03] MEDS: NICOTINE 21 MG/24 HR TDSY EXT SCH (16:54)
[2017-03-03] MEDS ORDERED: HydrALAZINE HCL 20 MG/ML VIAL IV. STA (22:14)
[2017-03-03] MEDS ORDERED: HydrALAZINE HCL 20 MG/ML VIAL ONE (22:16)
[2017-03-03] MEDS ORDERED: HYDROmorphone INJ 2 MG/ML SYR/VIAL ONE (22:45)
[2017-03-03 23:10] LABS: CALCIUM 7.9 mg/dl (8.5-10.1); CREATININE 1.27 mg/dl (0.60-1.40); POTASSIUM 3.6 mmol/L (3.5-5.1)
[2017-03-04] VITALS (16 sets, daily range): BP systolic 103–205; BP diastolic 59–100; PULSE 73–122; TEMP 36.8–37.5; O2SAT 91–100
[2017-03-04] MEDS: METOPROLOL TARTRATE 1 MG/ML VIAL IV. SCH ×4 (00:15→17:56)
[2017-03-04] MEDS: HYDROmorphone INJ 2 MG/ML SYR/VIAL IV PRN ×3 (02:31→20:12)
[2017-03-04] MEDS: DexMEDEtomidine HCL IV 400 MCG in SODIUM CHLORIDE 0.9% 100ML 96 ML IV PRN ×2 (03:07→06:36)
[2017-03-04] MEDS: INSULIN ASPART 100 UNITS/ML 3 ML PEN SC SCH ×6 (04:00→19:38)
[2017-03-04 06:11] LABS: BASO % 0.2 %; BASO ABS # 0.01 K/uL (0-0.2); EOS % 0.8 %; EOS ABS # 0.05 K/uL (0-0.5); HEMATOCRIT 25.8 % (42-52); HEMOGLOBIN 8.5 g/dL (14.0-18.0); IG# 0.05 K/uL (0.00-0.02); LYMPH ABS # 0.48 K/uL (1.2-3.4); MEAN CELL VOLUME 99.2 fL (80-100); MEAN CORPUSCULAR HEMOGLOBIN 32.7 pg (25-34); MEAN CORPUSCULAR HGB CONC 32.9 g/dl (32-36); MEAN PLATELET VOLUME 8.8 fL (7.4-10.4); MONO % 10.4 %; MONO ABS # 0.62 K/uL (0.11-0.59); NEUT % 79.8 %; NEUT ABS # 4.76 K/uL (1.4-6.5); PLATELET COUNT 133 K/uL (130-400); RED CELL DISTRIBUTION WIDTH CV 13.7 % (11.5-14.5); RED CELL DISTRIBUTION WIDTH SD 49.6 fL (36.4-46.3); WHITE BLOOD COUNT 5.97 K/uL (4.8-10.8)
[2017-03-04 06:46] LABS: CALCIUM 7.5 mg/dl (8.5-10.1); CREATININE 1.2 mg/dl (0.60-1.40); POTASSIUM 3.4 mmol/L (3.5-5.1)
[2017-03-04 06:53] LABS: PHOSPHORUS 2.5 mg/dl (2.5-4.9)
[2017-03-04] MEDS: NICOTINE 21 MG/24 HR TDSY EXT SCH (07:32)
[2017-03-04] MEDS: ASPIRIN 81 MG CHEW NG SCH (07:32)
[2017-03-04] MEDS: INSULIN GLARGINE SOLOSTAR 100 UNITS/ML 3 ML PEN SC SCH (07:34)
[2017-03-04] MEDS: NORMOSOL R 1,000 ML IV SCH (07:39)
--- NOTE | 2017-03-04 08:03 | Critical Care Progress Note ---
Critical Care Progress Note Date of Service Mar 04, 2017. Attending Subjective Some agitation overnight. Utilized some sedation. ETOH supplement in place in hopes of avoiding DTs. Pulmonary toilette continues to be a challenge. Needs to mobilize. Yesterday the a-line and triple removed. BiPAP used but he did not tolerate it very well. Case discussed with staff.. priority is mobilization and pulmonary toilette. Objective Gen--sedated HEENT--no focal target Respiratory--exchange acceptable and improved on the right thanks to efforts of respiratory--percussion ongoing Cardio--rate and volume ok--generalized edema GI--functional--obese Musculo--left hip wound noted--no real drainage of concern Neuro--awake and alert but confused Derm--no acute changes Current SOFA Score SOFA Score Response (Comments) Value PaO2/FiO2 (mmHg) < 300 2 SaO2 / FIO2 221 - 301 1 Platelets (x10) > 150 0 Bilirubin (mg/dL) < 1.2 0 [place] Coma Score 10 - 12 2 Level of Hypotension No Hypotension 0 Creatinine (mg/dL) < 1.2 0 Total 5 Assessment & Plan DANY with intraoperative arrest. 1. Cardio--will add loop diuretic and potassium supplement. 2. Pulmonary--toilette is priority 3. GI--OBR and advance 4. F/E/N--replacement 5. Neuro--limit sedation. ETOH dosing discussed. 6. DVT prophylaxis--will add Heparin to routine Consults & Procedures Consultants: no new consults today Procedures: no procedures today Data Medications: Current Inpatient Medications Medications (Trade) Dose Ordered Sig/Sujey Route Start Time Stop Time Status Last Admin Dose Admin Fentanyl Citrate 250 ml @ 0 mls/hr Q0M PRN IV 03/01/17 11:45 03/15/17 11:44 03/03/17 02:19 30 MLS/HR Levalbuterol (Xopenex 1.25MG/ 3ML Neb) 1.25 mg Q4 PRN INH 03/01/17 12:00 03/31/17 11:59 03/02/17 08:00 1.25 MG Pantoprazole Sodium 40 mg/ Syringe 10 ml @ 5 mls/min DAILY IV 03/02/17 09:00 04/01/17 08:59 03/03/17 07:45 5 MLS/MIN Glucose (Glucose 40% Gel) 15-30 GRAMS 15 GRAMS... UD PRN PO 03/01/17 12:00 03/31/17 11:59 Glucose (Glucose Chew Tab) 4-8 Tablets 4 Tabl... UD PRN PO 03/01/17 12:00 03/31/17 11:59 Dextrose (Dextrose 50% 50ML Syringe) 25-50ML OF 50% DW IV FOR... UD PRN IV 03/01/17 12:00 03/31/17 11:59 Glucagon (Glucagon Inj) 1 mg UD PRN SQ 03/01/17 12:00 03/31/17 11:59 Miscellaneous Information (Consult Glycemic Management Pharmacy) 1 ea UD PRN N/A 03/01/17 12:30 03/31/17 12:29 Glucose (Glucose 40% Gel) 15-30 GRAMS 15 GRAMS... UD PRN PO 03/01/17 13:30 03/31/17 13:29 Glucose (Glucose Chew Tab) 4-8 Tablets 4 Tabl... UD PRN PO 03/01/17 13:30 03/31/17 13:29 Dextrose (Dextrose 50% 50ML Syringe) 25-50ML OF 50% DW IV FOR... UD PRN IV 03/01/17 13:30 03/31/17 13:29 Glucagon (Glucagon Inj) 1 mg UD PRN SQ 03/01/17 13:30 03/31/17 13:29 Insulin Aspart (novoLOG ASPART) SLIDING SCALE Q4 SC 03/01/17 16:00 03/31/17 15:59 03/03/17 12:31 3 UNITS Insulin Glargine (Lantus Solostar Pen) see protocol text BID SC 03/01/17 21:00 03/31/17 20:59 03/03/17 08:17 25 UNITS Dexmedetomidine HCl 400 mcg/ Sodium Chloride 100 ml @ 0 mls/hr Q0M PRN IV 03/01/17 15:00 03/08/17 14:59 03/04/17 06:36 29.8 MLS/HR Parenteral Electrolyte Solution 1,000 ml @ 100 mls/hr Q10H IV 03/01/17 21:00 03/31/17 20:59 03/04/17 07:39 100 MLS/HR Acetaminophen 100 ml @ 400 mls/hr Q6H PRN IV 03/02/17 01:00 04/01/17 00:59 03/02/17 01:18 400 MLS/HR Metoprolol Tartrate (Lopressor Iv) 5 mg Q6 IV. 03/02/17 12:00 03/31/17 17:59 03/04/17 05:50 5 MG Thiamine HCl 100 mg/Syringe 10 ml @ 2 mls/min Q12H IV 03/02/17 09:45 04/01/17 09:44 03/03/17 21:14 2 MLS/MIN Folic Acid 1 mg/ Syringe 10 ml @ 5 mls/min DAILY@0900 IV 03/02/17 09:45 04/01/17 09:44 03/03/17 08:54 5 MLS/MIN Aspirin (Aspirin Chew) 324 mg BID NG 03/02/17 21:00 04/01/17 20:59 03/04/17 07:32 324 MG Non-Formulary Medication (Whiskey) 1 dose QID PRN PO 03/03/17 16:15 04/02/17 16:14 03/04/17 01:14 1 DOSE Nicotine (Nicoderm Cq 21MG Patch) 1 patch DAILY@0900 EXT 03/03/17 17:15 04/02/17 17:14 03/04/17 07:32 1 PATCH Miscellaneous (Remove Nicoderm Patch) 1 ea DAILY@0859 N/A 03/04/17 08:59 04/03/17 08:58 03/04/17 07:34 1 EA Hydromorphone HCl (Dilaudid Inj) 2 mg Q4H PRN IV 03/03/17 22:45 03/17/17 22:44 03/04/17 02:31 2 MG Heparin Sodium (Porcine) (Heparin 10 Unit/ ml 5 ml Flush) 5 ml PRN PRN FLUSH 03/04/17 02:30 04/03/17 02:29 Heparin Sodium (Porcine) (Heparin Sq 5000 Unit/0.5ml) 5,000 unit Q8 SQ 03/04/17 14:00 04/03/17 13:59 UNV Potassium Chloride (Klor-Con Tab) 20 meq BID PO 03/04/17 09:00 04/03/17 08:59 UNV Furosemide 40 mg/ Syringe 4 ml @ 4 mls/min NOW IV 03/04/17 07:45 04/03/17 07:44 UNV Vital Signs: Date Time Temp Pulse Resp B/P (MAP) Pulse Ox O2 Delivery O2 Flow Rate FiO2 03/04/17 06:01 77 17 103/64 (77) 99 40 03/04/17 05:50 76 131/72 03/04/17 05:01 88 13 137/74 (95) 98 BiPAP 40 03/04/17 04:01 37.1 92 13 113/70 (84) 98 BiPAP 40 03/04/17 03:32 105 14 125/70 (88) 98 BiPAP 40 03/04/17 03:01 120 20 179/83 (115) Nasal Cannula 2.0 03/04/17 02:01 122 24 152/89 (110) 94 Nasal Cannula 2.0 03/04/17 00:15 104 165/78 03/04/17 00:03 36.9 100 13 165/78 (107) 100 Nasal Cannula 2.0 03/04/17 00:00 Nasal Cannula 2.0 03/03/17 23:01 93 15 129/83 (98) 100 BiPAP 40 03/03/17 22:49 101 97 03/03/17 22:41 103 21 172/74 (106) 97 BiPAP 40 03/03/17 22:04 99 20 190/84 (119) BiPAP 40 03/03/17 21:01 95 20 175/95 (121) 95 Nasal Cannula 2.0 03/03/17 20:01 36.5 92 20 152/90 (110) 96 Nasal Cannula 2.0 03/03/17 20:00 Nasal Cannula 2.0 03/03/17 18:00 80 19 171/81 (111) 99 Nasal Cannula 4.0 03/03/17 16:48 74 124/63 03/03/17 16:00 Nasal Cannula 4.0 03/03/17 16:00 36.6 82 16 147/79 (101) 98 Nasal Cannula 4.0 03/03/17 14:11 36.5 57 12 129/77 (94) 100 BiPAP 03/03/17 12:00 98 18 132/92 (105) 92 BiPAP 03/03/17 12:00 BiPAP 03/03/17 12:00 65 18 149/60 (89) 100 BiPAP 03/03/17 10:11 54 12 128/60 (82) 98 BiPAP 03/03/17 09:00 68 98 03/03/17 08:00 Mechanical Ventilator 45 03/03/17 08:00 60 03/03/17 08:00 55 14 125/61 (82) 98 Mechanical Ventilator 45 Laboratory Results: Last 24 Hours Test 03/03/17 08:12 03/03/17 12:28 03/03/17 16:46 03/03/17 21:03 Bedside Glucose 195 mg/dl 200 mg/dl 111 mg/dl 81 mg/dl Test 03/03/17 21:42 03/04/17 00:05 03/04/17 04:01 03/04/17 05:45 Sodium Level 141 mmol/L 140 mmol/L Potassium Level 3.6 mmol/L 3.4 mmol/L Chloride Level 106 mmol/L 106 mmol/L Carbon Dioxide Level 28 mmol/L 27 mmol/L Anion Gap 7.0 mmol/L 7.0 mmol/L Blood Urea Nitrogen 24 mg/dl 21 mg/dl Creatinine 1.27 mg/dl 1.20 mg/dl Est Creatinine Clear Calc Drug Dose 89.6 ml/min 94.9 ml/min Estimated GFR () 68.7 73.6 Estimated GFR (Non- 59.3 63.5 BUN/Creatinine Ratio 18.9 17.7 Random Glucose 81 mg/dl 54 mg/dl Calcium Level 7.9 mg/dl 7.5 mg/dl Bedside Glucose 87 mg/dl 86 mg/dl White Blood Count 5.97 K/uL Red Blood Count 2.60 M/uL Hemoglobin 8.5 g/dL Hematocrit 25.8 % Mean Corpuscular Volume 99.2 fL Mean Corpuscular Hemoglobin 32.7 pg Mean Corpuscular Hemoglobin Concent 32.9 g/dl Platelet Count 133 K/uL Mean Platelet Volume 8.8 fL Neutrophils (%) (Auto) 79.8 % Lymphocytes (%) (Auto) 8.0 % Monocytes (%) (Auto) 10.4 % Eosinophils (%) (Auto) 0.8 % Basophils (%) (Auto) 0.2 % Neutrophils # (Auto) 4.76 K/uL Lymphocytes # (Auto) 0.48 K/uL Monocytes # (Auto) 0.62 K/uL Eosinophils # (Auto) 0.05 K/uL Basophils # (Auto) 0.01 K/uL RDW Standard Deviation 49.6 fL RDW Coefficient of Variation 13.7 % Immature Granulocyte % (Auto) 0.8 % Immature Granulocyte # (Auto) 0.05 K/uL Phosphorus Level 2.5 mg/dl Magnesium Level 1.8 mg/dl
[2017-03-04] MEDS: FoLIC ACID INJ 1 MG in SYRINGE 9.8 ML IV SCH (08:26)
[2017-03-04] MEDS: PANTOprazole INJ 40 MG in SYRINGE 0 ML IV SCH (08:26)
[2017-03-04] MEDS: THIAMINE HCL INJ 100 MG in SYRINGE 9 ML IV SCH ×2 (08:26→21:26)
[2017-03-04] MEDS ORDERED: FUROSEMIDE INJ 40 MG in SYRINGE 0 ML IV ONE (09:30)
[2017-03-04] MEDS: POTASSIUM CHLORIDE 20 MEQ TABCR PO SCH ×2 (09:53→21:26)
--- NOTE | 2017-03-04 09:55 | PROGRESS NOTE ---
DATE: 03/04/2017 CHIEF COMPLAINT: Status post left total hip arthroplasty postop day #2. PROGRESS: Martin was seen and examined at bedside today. He is extubated. He was currently standing with the occupational therapist, but he was a max assist x2. He seemed comfortable standing but they were trying to get him into a chair. He did seem confused. He was adamant that he never had a surgery. He did not know who I was. He has been getting rum and fluids from the supervisor diagnostic to keep him from going into DTs. PHYSICAL EXAMINATION: VITAL SIGNS: Stable on 2 liters of nasal cannula. He still has a Garcia catheter in place. LEFT HIP: The incisional VAC is in place. The Hemovac is still to suction. His leg lengths are equal. He is able to stand. LABORATORY DATA: He has an H&H today of 8.5 and 25.8. IMPRESSION: Status post left total hip arthroplasty postop day #2. PLAN: He is still under the care of the supervisor diagnostic. They are trying to make sure he does not go into DTs. They are also working on his pulmonary function. They are trying to get him up into a chair this morning, so that he could sit up and be a little more alert. He is on aspirin 325 mg twice a day for DVT prophylaxis, but he has also been started on heparin drip because he has not been ambulating much. The nursing staff can pull the drain today, but the incisional VAC is going to stay in place for about 10 days from the day of surgery. He will likely be at the hospital for a couple days and then we will decide about either to sent him to rehab or if he can go back home. We will continue to follow him closely.
--- NOTE | 2017-03-04 10:37 | Pharmacy Progress Note ---
Glycemic: Assessment & Plan Date of Service Mar 04, 2017. Assessment & Plan ASSESSMENT: * Type 2 diabetic admitted to ICU 03/01/17 following intra-op v. fib arrest following bradycardia * Patient had been in OR for DANY, surgery interrupted during arrest, resuscitated and transferred to ICU for stabilization * Pt intubated up till 03/02/17 AM when he was successfully extubated * Immediately following extubation, BSGs dropped from 200 into the 80's where he has been for the last 12 hours * Fasting BSG this AM <80, per nurse, pt given 2 apple juices and came back to 80's * Hold Lantus, continue wt-based Novolog but loosen scale * Pt still has stressors on board as he is an alcoholic and currently being managed to attempt to avoid withdrawal/DT's * Diet currently clears - insulin requirements will change as diet advanced PLAN FOR INPATIENT GLYCEMIC CONTROL: * Hold Lantus at this time - restart when BSGs consistently >140 * Novolog Q 4 hrs * Correction factor 25 mg/dl/unit * Carb ratio 1 unit per 9 grams CHO consumed * Goal range Low 140 mg/dL - High 180 mg/dL * Please note that the plan above was derived based on current level of insulin resistance and hospital stress. These recommendations are appropriate for inpatient admission only. Plan of care upon discharge will need to be reassessed to avoid potential outpatient hypo/hyperglycemia. Thank you.
[2017-03-04] MEDS ORDERED: NURSING DECISION MEDICATION ORDER SCH (10:45)
--- NOTE | 2017-03-04 13:26 | Pulmonology Progress Note ---
Pulmonary Progress Note Date of Service Mar 04, 2017. Attending Dr. Garcia Subjective Patient seen and examined. He is out of bed to chair. Complaints of mild hip pain. Denies any chest pain or shortness of breath. Was on BIPAP for short time overnight. Objective VS reviewed. Gen: Awake and alert. Oriented only to self CVS: S1, S2, RRR Lungs: Diminished breath sound bilaterally. Abd: obese, NT/NT Ext: left hip dressing in place with drainage, trace bilateral lower extremity edema, no cyanosis, no clubbing Labs reviewed. Glucose 54, Calcium 7.5, Ph 2.5, Mg 1.8. Blood cultures 01/30/2017--pending Imaging reviewed. Medications reviewed. Assessment & Plan Ventilator dependent respiratory failure--resolved Cardiac arrest Morbid obesity Possible obstructive sleep apnea Obesity hypoventilation syndrome Tobacco use disorder Alcohol abuse Osteoarthritis Mucus plugging-resolved Atelectasis Mr. Restrepo now extubated. Doing well from a respiratory standpoint. He is saturating well on nasal canula. Still confused. Recommendations Continue with nasal canula to keep SaO2 between 88-92% Continue with nebulizer treatments PRN Encourage incentive spirometry. OT/PT when he is able to weight bear. Continue to monitor for alcohol withdrawal. He should have full sleep study done and PFT done as an outpatient. Will sign off case. Please contact me if you have any further questions or concerns. Data Medications: Current Inpatient Medications Medications (Trade) Dose Ordered Sig/Sujey Route Start Time Stop Time Status Last Admin Dose Admin Fentanyl Citrate 250 ml @ 0 mls/hr Q0M PRN IV 03/01/17 11:45 03/15/17 11:44 03/03/17 02:19 30 MLS/HR Levalbuterol (Xopenex 1.25MG/ 3ML Neb) 1.25 mg Q4 PRN INH 03/01/17 12:00 03/31/17 11:59 03/02/17 08:00 1.25 MG Pantoprazole Sodium 40 mg/ Syringe 10 ml @ 5 mls/min DAILY IV 03/02/17 09:00 04/01/17 08:59 03/04/17 08:26 5 MLS/MIN Glucose (Glucose 40% Gel) 15-30 GRAMS 15 GRAMS... UD PRN PO 03/01/17 12:00 03/31/17 11:59 Dextrose (Dextrose 50% 50ML Syringe) 25-50ML OF 50% DW IV FOR... UD PRN IV 03/01/17 12:00 03/31/17 11:59 Glucagon (Glucagon Inj) 1 mg UD PRN SQ 03/01/17 12:00 03/31/17 11:59 Miscellaneous Information (Consult Glycemic Management Pharmacy) 1 ea UD PRN N/A 03/01/17 12:30 03/31/17 12:29 Glucose (Glucose 40% Gel) 15-30 GRAMS 15 GRAMS... UD PRN PO 03/01/17 13:30 03/31/17 13:29 Glucose (Glucose Chew Tab) 4-8 Tablets 4 Tabl... UD PRN PO 03/01/17 13:30 03/31/17 13:29 Dextrose (Dextrose 50% 50ML Syringe) 25-50ML OF 50% DW IV FOR... UD PRN IV 03/01/17 13:30 03/31/17 13:29 Glucagon (Glucagon Inj) 1 mg UD PRN SQ 03/01/17 13:30 03/31/17 13:29 Insulin Aspart (novoLOG ASPART) SLIDING SCALE Q4 SC 03/01/17 16:00 03/31/17 15:59 03/03/17 12:31 3 UNITS Dexmedetomidine HCl 400 mcg/ Sodium Chloride 100 ml @ 0 mls/hr Q0M PRN IV 03/01/17 15:00 03/08/17 14:59 03/04/17 06:36 29.8 MLS/HR Acetaminophen 100 ml @ 400 mls/hr Q6H PRN IV 03/02/17 01:00 04/01/17 00:59 03/02/17 01:18 400 MLS/HR Metoprolol Tartrate (Lopressor Iv) 5 mg Q6 IV. 03/02/17 12:00 03/31/17 17:59 03/04/17 12:09 5 MG Thiamine HCl 100 mg/Syringe 10 ml @ 2 mls/min Q12H IV 03/02/17 09:45 04/01/17 09:44 03/04/17 08:26 2 MLS/MIN Folic Acid 1 mg/ Syringe 10 ml @ 5 mls/min DAILY@0900 IV 03/02/17 09:45 04/01/17 09:44 03/04/17 08:26 5 MLS/MIN Aspirin (Aspirin Chew) 324 mg BID NG 03/02/17 21:00 04/01/17 20:59 03/04/17 07:32 324 MG Non-Formulary Medication (Whiskey) 1 dose QID PRN PO 03/03/17 16:15 04/02/17 16:14 03/04/17 09:55 1 DOSE Nicotine (Nicoderm Cq 21MG Patch) 1 patch DAILY@0900 EXT 03/03/17 17:15 04/02/17 17:14 03/04/17 07:32 1 PATCH Miscellaneous (Remove Nicoderm Patch) 1 ea DAILY@0859 N/A 03/04/17 08:59 04/03/17 08:58 03/04/17 07:34 1 EA Hydromorphone HCl (Dilaudid Inj) 2 mg Q4H PRN IV 03/03/17 22:45 03/17/17 22:44 03/04/17 10:13 2 MG Heparin Sodium (Porcine) (Heparin 10 Unit/ ml 5 ml Flush) 5 ml PRN PRN FLUSH 03/04/17 02:30 04/03/17 02:29 Heparin Sodium (Porcine) (Heparin Sq 5000 Unit/0.5ml) 5,000 unit Q8 SQ 03/04/17 14:00 04/03/17 13:59 Potassium Chloride (Klor-Con Tab) 20 meq BID PO 03/04/17 09:00 04/03/17 08:59 03/04/17 09:53 20 MEQ Vital Signs: Date Time Temp Pulse Resp B/P (MAP) Pulse Ox O2 Delivery O2 Flow Rate FiO2 03/04/17 12:09 93 151/88 03/04/17 12:00 37.1 90 14 151/88 (109) 98 Nasal Cannula 2.0 03/04/17 12:00 98 Nasal Cannula 2.0 03/04/17 10:00 73 25 143/70 (94) 99 Nasal Cannula 2.0 03/04/17 08:00 36.8 81 20 109/59 (76) 92 Nasal Cannula 2.0 03/04/17 08:00 92 Nasal Cannula 2.0 03/04/17 06:01 77 17 103/64 (77) 99 40 03/04/17 05:50 76 131/72 03/04/17 05:01 88 13 137/74 (95) 98 BiPAP 40 03/04/17 04:01 37.1 92 13 113/70 (84) 98 BiPAP 40 03/04/17 03:32 105 14 125/70 (88) 98 BiPAP 40 03/04/17 03:01 120 20 179/83 (115) Nasal Cannula 2.0 03/04/17 02:01 122 24 152/89 (110) 94 Nasal Cannula 2.0 03/04/17 00:15 104 165/78 03/04/17 00:03 36.9 100 13 165/78 (107) 100 Nasal Cannula 2.0 03/04/17 00:00 Nasal Cannula 2.0 03/03/17 23:01 93 15 129/83 (98) 100 BiPAP 40 03/03/17 22:49 101 97 03/03/17 22:41 103 21 172/74 (106) 97 BiPAP 40 03/03/17 22:04 99 20 190/84 (119) BiPAP 40 03/03/17 21:01 95 20 175/95 (121) 95 Nasal Cannula 2.0 03/03/17 20:01 36.5 92 20 152/90 (110) 96 Nasal Cannula 2.0 03/03/17 20:00 Nasal Cannula 2.0 03/03/17 18:00 80 19 171/81 (111) 99 Nasal Cannula 4.0 03/03/17 16:48 74 124/63 03/03/17 16:00 Nasal Cannula 4.0 03/03/17 16:00 36.6 82 16 147/79 (101) 98 Nasal Cannula 4.0 03/03/17 14:11 36.5 57 12 129/77 (94) 100 BiPAP Laboratory Results: Last 24 Hours Test 03/03/17 16:46 03/03/17 21:03 03/03/17 21:42 03/04/17 00:05 Bedside Glucose 111 mg/dl 81 mg/dl 87 mg/dl Sodium Level 141 mmol/L Potassium Level 3.6 mmol/L Chloride Level 106 mmol/L Carbon Dioxide Level 28 mmol/L Anion Gap 7.0 mmol/L Blood Urea Nitrogen 24 mg/dl Creatinine 1.27 mg/dl Est Creatinine Clear Calc Drug Dose 89.6 ml/min Estimated GFR () 68.7 Estimated GFR (Non- 59.3 BUN/Creatinine Ratio 18.9 Random Glucose 81 mg/dl Calcium Level 7.9 mg/dl Test 03/04/17 04:01 03/04/17 05:45 03/04/17 07:16 03/04/17 07:17 Bedside Glucose 86 mg/dl 53 mg/dl 56 mg/dl White Blood Count 5.97 K/uL Red Blood Count 2.60 M/uL Hemoglobin 8.5 g/dL Hematocrit 25.8 % Mean Corpuscular Volume 99.2 fL Mean Corpuscular Hemoglobin 32.7 pg Mean Corpuscular Hemoglobin Concent 32.9 g/dl Platelet Count 133 K/uL Mean Platelet Volume 8.8 fL Neutrophils (%) (Auto) 79.8 % Lymphocytes (%) (Auto) 8.0 % Monocytes (%) (Auto) 10.4 % Eosinophils (%) (Auto) 0.8 % Basophils (%) (Auto) 0.2 % Neutrophils # (Auto) 4.76 K/uL Lymphocytes # (Auto) 0.48 K/uL Monocytes # (Auto) 0.62 K/uL Eosinophils # (Auto) 0.05 K/uL Basophils # (Auto) 0.01 K/uL RDW Standard Deviation 49.6 fL RDW Coefficient of Variation 13.7 % Immature Granulocyte % (Auto) 0.8 % Immature Granulocyte # (Auto) 0.05 K/uL Sodium Level 140 mmol/L Potassium Level 3.4 mmol/L Chloride Level 106 mmol/L Carbon Dioxide Level 27 mmol/L Anion Gap 7.0 mmol/L Blood Urea Nitrogen 21 mg/dl Creatinine 1.20 mg/dl Est Creatinine Clear Calc Drug Dose 94.9 ml/min Estimated GFR () 73.6 Estimated GFR (Non- 63.5 BUN/Creatinine Ratio 17.7 Random Glucose 54 mg/dl Calcium Level 7.5 mg/dl Phosphorus Level 2.5 mg/dl Magnesium Level 1.8 mg/dl Test 03/04/17 07:41 03/04/17 11:22 Bedside Glucose 85 mg/dl 86 mg/dl
[2017-03-04] MEDS: HEPARIN SOD 5000 UNIT/0.5 ML CARP SQ SCH ×2 (13:42→21:27)
[2017-03-04] MEDS: LORAZEPAM 1 MG TAB PO PRN (18:41)
[2017-03-04] MEDS ORDERED: NURSING VERBAL MED ORDER ONE (20:30)
[2017-03-04] MEDS ORDERED: ACETAMINOPHEN 500 MG TAB PO PRN (20:45)
[2017-03-04] MEDS ORDERED: ACETAMINOPHEN 500 MG TAB PO SCH (22:00)
[2017-03-04] MEDS ORDERED: LORAZEPAM 2 MG/ML 1 ML VIAL ONE (23:03)
[2017-03-05] VITALS (9 sets, daily range): BP systolic 151–195; BP diastolic 76–104; PULSE 87–110; TEMP 36.6–37.6; O2SAT 92–97
[2017-03-05] MEDS: METOPROLOL TARTRATE 1 MG/ML VIAL IV. SCH ×4 (00:19→16:58)
[2017-03-05] MEDS: LORAZEPAM 1 MG TAB PO PRN ×3 (00:59→09:54)
[2017-03-05] MEDS: INSULIN ASPART 100 UNITS/ML 3 ML PEN SC SCH ×6 (04:00→20:21)
[2017-03-05 05:56] LABS: BASO % 0.4 %; BASO ABS # 0.02 K/uL (0-0.2); EOS % 2.1 %; HEMATOCRIT 27.3 % (42-52); HEMOGLOBIN 8.8 g/dL (14.0-18.0); IG# 0.04 K/uL (0.00-0.02); LYMPH ABS # 0.63 K/uL (1.2-3.4); MEAN CORPUSCULAR HEMOGLOBIN 32.2 pg (25-34); MEAN CORPUSCULAR HGB CONC 32.2 g/dl (32-36); MEAN PLATELET VOLUME 8.5 fL (7.4-10.4); MONO % 18.4 %; MONO ABS # 0.89 K/uL (0.11-0.59); NEUT % 65.3 %; NEUT ABS # 3.16 K/uL (1.4-6.5); PLATELET COUNT 149 K/uL (130-400); RED CELL DISTRIBUTION WIDTH CV 13.5 % (11.5-14.5); RED CELL DISTRIBUTION WIDTH SD 49.2 fL (36.4-46.3); WHITE BLOOD COUNT 4.84 K/uL (4.8-10.8)
[2017-03-05] MEDS: HEPARIN SOD 5000 UNIT/0.5 ML CARP SQ SCH ×2 (06:01→13:53)
--- NOTE | 2017-03-05 06:04 | DIAGNOSTIC IMAGING REPORT ---
L VENOUS DOPP LOWER EXT UNILAT HISTORY: 66 years-old Male Left Calf Pain swelling s/p sugery acute left calf pain and swelling COMPARISON: None available TECHNIQUE: Multiple real-time sonographic images of the left lower extremity deep venous system were obtained assessing grayscale appearance, color and spectral flow FINDINGS: There is normal flow, phasicity, augmentation and compressibility of the left lower extremity deep venous structures. Cystic structure of the left popliteal fossa is seen, 3.6 x 5.2 x 1.9 cm compatible with Manley's cyst. IMPRESSION: No sonographic evidence of deep venous thrombosis. The above report was generated using voice recognition software. It may contain grammatical, syntax or spelling errors. Electronically signed by: Anil Michelle M.D. 03/05/2017 6:02 AM Dictated Date/Time: 03/05/2017 6:01 AM
[2017-03-05 06:27] LABS: CALCIUM 7.8 mg/dl (8.5-10.1); CREATININE 1.09 mg/dl (0.60-1.40); PHOSPHORUS 2.1 mg/dl (2.5-4.9); POTASSIUM 3.7 mmol/L (3.5-5.1)
[2017-03-05] MEDS ORDERED: LORAZEPAM 2 MG/ML 1 ML VIAL ONE (06:34)
[2017-03-05] MEDS ORDERED: NURSING VERBAL MED ORDER ONE (07:00)
[2017-03-05] MEDS: MAGNESIUM SULFATE 1GM / D5W 1 GM in PREMIXED IN D5W 100 ML IV SCH ×2 (07:17→07:55)
[2017-03-05] MEDS: HYDROmorphone INJ 2 MG/ML SYR/VIAL IV PRN (07:17)
[2017-03-05] MEDS: POT PHOSPHATE MONOBASIC W/ SOD TAB PO SCH ×3 (07:18→15:59)
[2017-03-05] MEDS: NICOTINE 21 MG/24 HR TDSY EXT SCH (07:50)
[2017-03-05] MEDS: PANTOprazole INJ 40 MG in SYRINGE 0 ML IV SCH (07:54)
[2017-03-05] MEDS: THIAMINE HCL INJ 100 MG in SYRINGE 9 ML IV SCH (07:54)
[2017-03-05] MEDS: FoLIC ACID INJ 1 MG in SYRINGE 9.8 ML IV SCH (07:54)
[2017-03-05] MEDS: POTASSIUM CHLORIDE 20 MEQ TABCR PO SCH ×2 (07:54→20:19)
--- NOTE | 2017-03-05 07:59 | Critical Care Progress Note ---
Critical Care Progress Note Date of Service Mar 05, 2017. Attending Subjective He has some agitation issues particularly at night. ETOH modified and ativan also added. Pulmonary toilette continue to be a challenge. Therapy and nursing working very hard to mobilize him. Wound is ok. Volume status ok. Objective Gen--sedated HEENT--no focal target Respiratory--exchange acceptable Cardio--rate and volume ok--generalized edema GI--functional--obese Musculo--left hip wound noted--no real drainage of concern--drain out yesterday- -venous doppler was negative yesterday. Neuro--awake and alert but confused Derm--no acute changes Current SOFA Score SOFA Score Response (Comments) Value PaO2/FiO2 (mmHg) < 300 2 SaO2 / FIO2 221 - 301 1 Platelets (x10) > 150 0 Bilirubin (mg/dL) < 1.2 0 [place] Coma Score 10 - 12 2 Level of Hypotension No Hypotension 0 Creatinine (mg/dL) < 1.2 0 Total 5 Assessment & Plan DANY with intraoperative arrest: 1. Pulmonary--continue pulmonary toilette 2. Cardio--will continue to track volume status. Dosing Lasix PRN--BiPAP if tolerates 3. GI--PO intake 4. Neuropsych--extensive ETOH use. Trying to avoid DT's. Limit psychotropic Rx if possible. 5. Dispo--he will require period of time in SNF/Rehab. Consults & Procedures Consultants: no new consults today Procedures: no procedures today Data Medications: Current Inpatient Medications Medications (Trade) Dose Ordered Sig/Sujey Route Start Time Stop Time Status Last Admin Dose Admin Fentanyl Citrate 250 ml @ 0 mls/hr Q0M PRN IV 03/01/17 11:45 03/15/17 11:44 03/03/17 02:19 30 MLS/HR Levalbuterol (Xopenex 1.25MG/ 3ML Neb) 1.25 mg Q4 PRN INH 03/01/17 12:00 03/31/17 11:59 03/02/17 08:00 1.25 MG Pantoprazole Sodium 40 mg/ Syringe 10 ml @ 5 mls/min DAILY IV 03/02/17 09:00 04/01/17 08:59 03/04/17 08:26 5 MLS/MIN Glucose (Glucose 40% Gel) 15-30 GRAMS 15 GRAMS... UD PRN PO 03/01/17 12:00 03/31/17 11:59 Dextrose (Dextrose 50% 50ML Syringe) 25-50ML OF 50% DW IV FOR... UD PRN IV 03/01/17 12:00 03/31/17 11:59 Glucagon (Glucagon Inj) 1 mg UD PRN SQ 03/01/17 12:00 03/31/17 11:59 Miscellaneous Information (Consult Glycemic Management Pharmacy) 1 ea UD PRN N/A 03/01/17 12:30 03/31/17 12:29 Glucose (Glucose 40% Gel) 15-30 GRAMS 15 GRAMS... UD PRN PO 03/01/17 13:30 03/31/17 13:29 Glucose (Glucose Chew Tab) 4-8 Tablets 4 Tabl... UD PRN PO 03/01/17 13:30 03/31/17 13:29 Dextrose (Dextrose 50% 50ML Syringe) 25-50ML OF 50% DW IV FOR... UD PRN IV 03/01/17 13:30 03/31/17 13:29 Glucagon (Glucagon Inj) 1 mg UD PRN SQ 03/01/17 13:30 03/31/17 13:29 Insulin Aspart (novoLOG ASPART) SLIDING SCALE Q4 SC 03/01/17 16:00 03/31/17 15:59 03/03/17 12:31 3 UNITS Dexmedetomidine HCl 400 mcg/ Sodium Chloride 100 ml @ 0 mls/hr Q0M PRN IV 03/01/17 15:00 03/08/17 14:59 03/04/17 06:36 29.8 MLS/HR Acetaminophen 100 ml @ 400 mls/hr Q6H PRN IV 03/02/17 01:00 04/01/17 00:59 03/02/17 01:18 400 MLS/HR Metoprolol Tartrate (Lopressor Iv) 5 mg Q6 IV. 03/02/17 12:00 03/31/17 17:59 03/05/17 05:55 5 MG Thiamine HCl 100 mg/Syringe 10 ml @ 2 mls/min Q12H IV 03/02/17 09:45 04/01/17 09:44 03/04/17 21:26 2 MLS/MIN Folic Acid 1 mg/ Syringe 10 ml @ 5 mls/min DAILY@0900 IV 03/02/17 09:45 04/01/17 09:44 03/04/17 08:26 5 MLS/MIN Nicotine (Nicoderm Cq 21MG Patch) 1 patch DAILY@0900 EXT 03/03/17 17:15 04/02/17 17:14 03/04/17 07:32 1 PATCH Miscellaneous (Remove Nicoderm Patch) 1 ea DAILY@0859 N/A 03/04/17 08:59 04/03/17 08:58 03/04/17 07:34 1 EA Hydromorphone HCl (Dilaudid Inj) 2 mg Q4H PRN IV 03/03/17 22:45 03/17/17 22:44 03/05/17 07:17 2 MG Heparin Sodium (Porcine) (Heparin 10 Unit/ ml 5 ml Flush) 5 ml PRN PRN FLUSH 03/04/17 02:30 04/03/17 02:29 Heparin Sodium (Porcine) (Heparin Sq 5000 Unit/0.5ml) 5,000 unit Q8 SQ 03/04/17 14:00 04/03/17 13:59 03/05/17 06:01 5,000 UNIT Potassium Chloride (Klor-Con Tab) 20 meq BID PO 03/04/17 09:00 04/03/17 08:59 03/04/17 21:26 20 MEQ Non-Formulary Medication (Whiskey) 1 dose Q4H PRN PO 03/04/17 14:30 04/03/17 14:29 03/05/17 04:40 1 DOSE Lorazepam (Ativan Tab) 1 mg Q4 PRN PO 03/04/17 18:30 04/03/17 18:29 03/05/17 05:54 1 MG Acetaminophen (Tylenol Tab) 1,000 mg Q8 PRN PO 03/04/17 20:45 04/03/17 20:44 Magnesium Sulfate 1 gm/Prmx 100 ml @ 100 mls/hr Q1H IV 03/05/17 07:00 03/05/17 08:59 03/05/17 07:17 100 MLS/HR Potassium/ Phosphorus/Sodium (Phospha 250 Neutral 155-852-130 Mg) 1 tab Q4H PO 03/05/17 06:45 03/05/17 14:46 03/05/17 07:18 1 TAB Vital Signs: Date Time Temp Pulse Resp B/P (MAP) Pulse Ox O2 Delivery O2 Flow Rate FiO2 03/05/17 06:01 90 20 188/94 (125) 97 Nasal Cannula 2.0 03/05/17 05:55 96 183/99 03/05/17 04:01 37.3 91 20 161/76 (104) 96 Nasal Cannula 2.0 03/05/17 04:00 Room Air Nasal Cannula 03/05/17 01:59 92 18 151/77 (101) 95 Nasal Cannula 2.0 03/05/17 00:19 101 171/82 03/05/17 00:15 37.3 101 20 171/82 (111) 96 Nasal Cannula 2.0 03/05/17 00:00 Room Air Nasal Cannula 03/04/17 22:01 104 15 169/92 (117) 91 Room Air 03/04/17 20:01 37.5 95 25 174/87 (116) 93 Room Air 03/04/17 20:00 Room Air 03/04/17 18:05 92 20 205/100 (135) 94 Room Air 03/04/17 17:56 104 165/84 03/04/17 16:00 37.0 93 18 178/80 (112) 99 Nasal Cannula 2.0 03/04/17 16:00 99 Nasal Cannula 2.0 03/04/17 14:00 83 19 143/69 (93) 93 Nasal Cannula 2.0 03/04/17 12:09 93 151/88 03/04/17 12:00 37.1 90 14 151/88 (109) 98 Nasal Cannula 2.0 03/04/17 12:00 98 Nasal Cannula 2.0 03/04/17 10:00 73 25 143/70 (94) 99 Nasal Cannula 2.0 03/04/17 08:00 36.8 81 20 109/59 (76) 92 Nasal Cannula 2.0 03/04/17 08:00 92 Nasal Cannula 2.0 Laboratory Results: Last 24 Hours Test 03/04/17 11:22 03/04/17 15:57 03/04/17 19:36 03/05/17 00:10 Bedside Glucose 86 mg/dl 95 mg/dl 134 mg/dl 176 mg/dl Test 03/05/17 03:48 03/05/17 05:38 03/05/17 07:33 Bedside Glucose 128 mg/dl 135 mg/dl White Blood Count 4.84 K/uL Red Blood Count 2.73 M/uL Hemoglobin 8.8 g/dL Hematocrit 27.3 % Mean Corpuscular Volume 100.0 fL Mean Corpuscular Hemoglobin 32.2 pg Mean Corpuscular Hemoglobin Concent 32.2 g/dl Platelet Count 149 K/uL Mean Platelet Volume 8.5 fL Neutrophils (%) (Auto) 65.3 % Lymphocytes (%) (Auto) 13.0 % Monocytes (%) (Auto) 18.4 % Eosinophils (%) (Auto) 2.1 % Basophils (%) (Auto) 0.4 % Neutrophils # (Auto) 3.16 K/uL Lymphocytes # (Auto) 0.63 K/uL Monocytes # (Auto) 0.89 K/uL Eosinophils # (Auto) 0.10 K/uL Basophils # (Auto) 0.02 K/uL RDW Standard Deviation 49.2 fL RDW Coefficient of Variation 13.5 % Immature Granulocyte % (Auto) 0.8 % Immature Granulocyte # (Auto) 0.04 K/uL Red Blood Cell Morphology Unremarkable Sodium Level 139 mmol/L Potassium Level 3.7 mmol/L Chloride Level 105 mmol/L Carbon Dioxide Level 28 mmol/L Anion Gap 6.0 mmol/L Blood Urea Nitrogen 17 mg/dl Creatinine 1.09 mg/dl Est Creatinine Clear Calc Drug Dose 104.4 ml/min Estimated GFR () 82.7 Estimated GFR (Non- 71.4 BUN/Creatinine Ratio 15.3 Random Glucose 113 mg/dl Calcium Level 7.8 mg/dl Phosphorus Level 2.1 mg/dl Magnesium Level 1.6 mg/dl
--- NOTE | 2017-03-05 10:04 | PROGRESS NOTE ---
DATE: 03/05/2017 CHIEF COMPLAINT: Status post left total hip arthroplasty postop day #3. PROGRESS: Martin was seen and examined at bedside today. He was awake and alert. He was smiling, but he still seems slightly confused. He was able to stand with physical therapy yesterday and they were able to get him to sit in a chair; however, he has not been able to walk yet. They state because he is confused and unstable on his feet, it is not necessarily because of his hip. He has been getting alcohol and Ativan by the self pay collector to help control any DTs. PHYSICAL EXAMINATION: LEFT HIP: The pertinent VAC dressing is to suction and the Hemovac drain has been removed. His leg lengths are essentially equal. He has active dorsiflexion and plantarflexion of his left ankle. LABORATORY DATA: He has an H&H today of 8.8 and 27.3. His glucose is 135. His vital signs are relatively stable on room air and he still has a Garcia catheter in place. IMPRESSION: Status post left total hip arthroplasty postop day #3. PLAN: He does look better today, but he is still confused and he has not been ambulating yet. The self pay collector is still giving him alcohol and Ativan to prevent DTs. He needs to be up and ambulating with physical therapy. I encouraged him to ambulate today. I would like to get him home as soon as possible. From my standpoint, he can go up to the ortho floor as long as they can manage his alcoholism. His hip looks really good, but he has not been ambulating with therapy. He needs to start ambulating some, so we can decide where he can go. He is currently on heparin and aspirin for DVT prophylaxis and I do want the Garcia out as soon as possible once it is okay with the medicine team. We will continue to follow him closely.
[2017-03-05] MEDS ORDERED: CLONIDINE HCL 0.1 MG TAB PO PRN (11:15)
[2017-03-05] MEDS: HYDROmorphone INJ 1 MG/ML SYR IV PRN (13:57)
--- NOTE | 2017-03-05 13:58 | HISTORY & PHYSICAL EXAMINATION ---
DATE OF ADMISSION: 03/05/2017 CHIEF COMPLAINT: Status post left hip surgery during the patient had a cardiac arrest and alcohol withdrawal. HISTORY OF PRESENT ILLNESS: This is a 66-year-old male with past medical history significant for diabetes, hypertension, obesity, heavy tobacco and alcohol use and hyperlipidemia who was admitted on 03/01/2017 for left hip arthroplasty, during the procedure, intraoperatively, the patient transiently became bradycardic, unresponsive and then became hypotensive and poor pulses and oxygenation. CPR was begun and received IV epinephrine, THEN noted wide complex tachycardia s/p synchronized electrical cardioversion shocks 360 joules given with little change in rhythm and he received 300 mg IV amiodarone with gradual slowing of the heart rate. The surgical incision was closed without hip repair and femur head removed and was transferred to intensive care unit with intubated status. Critical Care Cardiology evaluated the patient and then later the patient was in sinus rhythm with right bundle branch block and pulmonary also followed the patient.Patient was stabilized and the next day, went back to the OR and completed right hip arthroplasty, tolerated the procedure okay and was sent back to ICU and after surgery the next day, he was extubated. Clint has history of heavy drinking, about a half gallon of rum every day and also smoking half pack of cigarettes every day. In the ICU, he was placed on rum 100 mL every 6 hours initially, he was on Precedex drip. Yesterday, Precedex drip was stopped, so his alcohol was increased to 100 mg of rum every 4 hours by critical care and also placed on Ativan p.o. Currently, the patient is hemodynamically stable, but oriented to only name, thinks he is in the hospital and but does not know the name of the hospital. Does not know the time. He is on clear liquids, not eating much. The patient complains of severe right hip pain, a 9/10 in severity. He denies any chest pain, no shortness of breath. No nausea. No abdominal pain. No blurred visions. We were asked to take over the patient for further management. Not much in therapy since surgery. ALLERGIES: None. MEDICATIONS AT HOME: The patient is on atorvastatin 10 mg p.o. daily, Ativan 1 mg p.o. every 12 hours, [place] 1 tablet every 6 hours p.r.n., Januvia 100 mg p.o. daily, metoprolol succinate XL 50 mg p.o. daily, Lyrica 25 mg p.o. t.i.d., folic acid 1 mg p.o. daily, Flomax 0.4 mg p.o. daily, albuterol 2 puffs every 4 hours p.r.n., and Lasix 40 mg p.o. daily. FAMILY HISTORY: Significant for diabetes, stroke, and asthma. SOCIAL HISTORY: Smokes half pack a day of cigarettes. Alcohol, drinks half gallon a day. REVIEW OF SYSTEMS: As per the HPI, rest of ROS unobtainable as patient somewhat confused. PHYSICAL EXAMINATION: GENERAL: The patient is alert and awake and oriented x1. VITAL SIGNS: Temperature 36.6, pulse 96, respiration 21, blood pressure 162/82, oxygen 92% room air. HEENT: No pallor, no icterus. Pupils equal, round react to light. NECK: No JVD, no neck masses, no carotid bruits. CARDIOVASCULAR: S1, S2 heard. Tachycardia. No murmurs. RESPIRATORY SYSTEM: Clear to auscultation bilaterally. No accessory muscle use. No wheezing, no crackles. ABDOMEN: Soft, bowel sounds present. Mild diffuse discomfort. No guarding, no rigidity. CENTRAL NERVOUS SYSTEM: Alert and oriented x3. Nonfocal. EXTREMITIES: Status post right hip arthroplasty, dressing is intact. LABORATORIES: Sodium 139, potassium 3.7, chloride 105, bicarb 28, BUN 17, creatinine 1.09, serum glucose 113, HbA1c was 7.8, calcium 7.84, phosphorus 2.1, magnesium 1.6. WBC 4.8, hemoglobin 8.8, hematocrit 27.3, platelets 149. PT 11.1, INR 1.0 PTT 25.7. Lower extremity doppler done, no DVT seen. Chest x-ray done on March 03 shows right PICC line placement, small bilateral pleural effusions . Hip and pelvis x-ray -shows status of post total hip arthroplasty. ASSESSMENT AND PLAN: This is a 66-year-old male who was admitted to the intensive care unit on March 01 after the patient suffered a cardiac arrest during this left hip surgery. The patient was resuscitated and intubated and next day he was taken to OR to complete his surgery and was extubated postsurgery the next day. Currently, we are asked see the patient for alcoholism. 1. Right hip arthroplasty. Management per orthopedics. The patient is on deep venous thrombosis prophylaxis Ortho recommends aspirin 325 b.i.d. post- discharge. PT, OT, Social Service to help with discharge plan. The patient may need rehab placement.Followup with ortho. 2. Cardiac arrest during the right hip surgery. The patient was bradycardic, pulseless, and received cardiopulmonary resuscitation and epinephrine then went to wide complex tachycardia and received 2 shocks and given amiodarone when his heart rate slowed down, was intubated and brought into the ICU and since been doing okay. Cardiology is seeing the patient. Echocardiogram shows mild concentric left ventricular hypertrophy, normal ejection fraction, no regional wall motion abnormalities seen. Etiology multifactorial Had alcohol prior coming to hospital and he has sleep apnea and obesity hypoventilation syndrome and tobacco abuse. Most likely cardiac arrest related to pulmonary causes, currently stable. 3. Alcoholism. In the intensive care unit, critical care has put initially on Precedex drip, and on rum 100 mL every 6hrs the Precedex was stopped yesterday. Currently He is placed on Ativan p.o. p.r.n. and rum incresed to 100ml q 4hrs. The patient has no intention to stop drinking and he drinks about a half a gallon of rum everyday. We will continue rum as ordered and Ativan p.r.n. We will monitor in the tele floor. The patient needs counseling. 4. Hypertension. The patient had Toprol-XL at home, currently on IV Lopressor . Will add clonidine p.r.n. 5. Hyperlipidemia. Continue statin. 6. Obstructive sleep apnea. The patient mostly has obstructive sleep apnea. Needs sleep study as an outpatient. We will continue BiPAP at bedtime while in the hospital. 7. Tobacco abuse counseling 8. Diabetes. Holding p.o. medications, place him on insulin sliding scale. We will monitor blood pressure. 9. Benign prostatic hypertrophy. Continue Flomax. 10. Deep vein thrombosis prophylaxis, currently heparin subQ. aspirin 325 mg p.o. b.i.d.x one month on discharge DISPOSITION: Will transfer to tele floor. PT, OT and Social Service to help with discharge planning, needs follow with orthopedics. FRANCHESCA
[2017-03-05] MEDS: OXYCODONE/ACETAMINOPHEN 5-325 TAB PO PRN (16:00)
[2017-03-05] MEDS ORDERED: INSULIN GLARGINE SOLOSTAR 100 UNITS/ML 3 ML PEN SC SCH (21:00)
[2017-03-06] VITALS (7 sets, daily range): BP systolic 147–206; BP diastolic 77–112; PULSE 70–92; TEMP 36.7–37; O2SAT 94–95
[2017-03-06] MEDS: METOPROLOL TARTRATE 1 MG/ML VIAL IV. SCH ×2 (00:15→06:28)
[2017-03-06] MEDS: HEPARIN SOD 5000 UNIT/0.5 ML CARP SQ SCH ×4 (00:17→21:47)
[2017-03-06] MEDS: OXYCODONE/ACETAMINOPHEN 5-325 TAB PO PRN ×2 (01:46→14:17)
[2017-03-06] MEDS: HYDROmorphone INJ 1 MG/ML SYR IV PRN ×2 (02:34→08:34)
[2017-03-06 04:15] LABS: BASO % 0.4 %; BASO ABS # 0.02 K/uL (0-0.2); EOS % 1.9 %; HEMATOCRIT 25.5 % (42-52); HEMOGLOBIN 8.5 g/dL (14.0-18.0); IG# 0.05 K/uL (0.00-0.02); LYMPH % 13.2 %; MEAN CELL VOLUME 98.5 fL (80-100); MEAN CORPUSCULAR HEMOGLOBIN 32.8 pg (25-34); MEAN CORPUSCULAR HGB CONC 33.3 g/dl (32-36); MEAN PLATELET VOLUME 8.2 fL (7.4-10.4); MONO % 18.8 %; NEUT % 64.8 %; NEUT ABS # 3.45 K/uL (1.4-6.5); PLATELET COUNT 138 K/uL (130-400); RED CELL DISTRIBUTION WIDTH CV 13.7 % (11.5-14.5); RED CELL DISTRIBUTION WIDTH SD 49.2 fL (36.4-46.3); WHITE BLOOD COUNT 5.32 K/uL (4.8-10.8)
[2017-03-06 04:32] LABS: CREATININE 1.04 mg/dl (0.60-1.40)
[2017-03-06 04:33] LABS: PHOSPHORUS 2.1 mg/dl (2.5-4.9)
[2017-03-06] MEDS: INSULIN ASPART 100 UNITS/ML 3 ML PEN SC SCH ×6 (04:52→21:01)
[2017-03-06] MEDS: FUROSEMIDE 40 MG TAB PO SCH (08:44)
[2017-03-06] MEDS: POTASSIUM CHLORIDE 20 MEQ TABCR PO SCH ×2 (08:45→20:49)
[2017-03-06] MEDS: PANTOprazole SOD 40 MG TAB PO SCH (08:45)
[2017-03-06] MEDS: CEROVITE ADV FORMULA TAB PO SCH (08:45)
[2017-03-06] MEDS: NICOTINE 21 MG/24 HR TDSY EXT SCH (08:45)
[2017-03-06] MEDS: THIAMINE HCL 100 MG TAB PO SCH (08:45)
[2017-03-06] MEDS: LORAZEPAM 1 MG TAB PO PRN (10:15)
[2017-03-06] MEDS ORDERED: MAGNESIUM SULFATE 1GM / D5W 1 GM in PREMIXED IN D5W 100 ML IV ONE (12:00)
--- NOTE | 2017-03-06 12:12 | Pharmacy Progress Note ---
Glycemic Control Progress Note Date of Service Mar 06, 2017. Scope Glycemic Pharmacist consulted for glycemic control to write orders per formerly [facility] inpatient glycemic control protocol. Objective Accuchecks BSG (last 24hrs): Test 03/05/17 16:14 03/05/17 20:10 03/06/17 00:06 03/06/17 04:07 Bedside Glucose 147 mg/dl (70-99) 186 mg/dl (70-99) 138 mg/dl (70-99) Random Glucose 141 mg/dl (70-99) Test 03/06/17 04:43 03/06/17 06:33 03/06/17 10:33 Bedside Glucose 138 mg/dl (70-99) 118 mg/dl (70-99) 144 mg/dl (70-99) HbA1c: Test 03/01/17 18:00 Hemoglobin A1c 7.8 % (4.5-5.6) H Recent Pertinent Medications Outpatient Anti-diabetic Regimen (per preadmission med reconciliation): * Sitagliptin 100mg PO Q AM * A1c = 6.6 % Apr 2015 * Non-compliance reported Risk Factors for Insulin Resistance: * Recent Surgery: POD # 4; s/p completion of L DANY * Diet: ordered Clear Liquid diet Assessment & Plan ASSESSMENT: 03/06/17 * BSGs have ranged 118-186 over the last 24 hours * Fasting BSG 118-138 this AM with 15 units of Lantus on board * Patient's PO intake has been poor based upon carb counts, difficult to assess the appropriateness of the current Novolog CR. However the current CR is reasonable given reduced insulin requirements over the last 48 hours. PLAN FOR INPATIENT GLYCEMIC CONTROL: * Lantus Q HS based upon the following scale: * BSG less than 140: give 0 units * BSG 140 or greater: give 15 units * Change BSG checks to ACHS to lessen sleep interruption * Continue correction factor 25 mg/dl/unit * Continue carb ratio 1 unit per 9 grams CHO consumed * Change to goal range Low 130 mg/dL - High 160 mg/dL * Please note that the plan above was derived based on current level of insulin resistance and hospital stress. These recommendations are appropriate for inpatient admission only. Plan of care upon discharge will need to be reassessed to avoid potential outpatient hypo/hyperglycemia. Thank you.
[2017-03-06] MEDS: DOCUSATE SODIUM 100 MG CAP PO SCH ×2 (12:17→20:48)
[2017-03-06] MEDS: TAMSULOSIN HCL 0.4 MG CAP PO SCH (12:17)
[2017-03-06] MEDS: METOPROLOL SUCC 50MG EXT REL TAB PO SCH (12:18)
[2017-03-06] MEDS: POLYETHYLENE (MIRALAX) 17 GM PACK PO SCH (12:18)
[2017-03-06] MEDS: ATORVASTATIN 10 MG TAB PO SCH (12:18)
[2017-03-06] MEDS: POT PHOSPHATE MONOBASIC W/ SOD TAB PO SCH ×3 (12:20→20:49)
[2017-03-06] MEDS: PREGABALIN 25MG CAP PO SCH ×2 (13:47→20:52)
--- NOTE | 2017-03-06 18:24 | Progress Note ---
Internal Med Progress Note Date of Service: Mar 06, 2017. Provider Documentation: SUBJECTIVE: mentions of having severe pain on left hip unable to move wants pain medication no evidence of alcohol withdrawal no anxiety or agitation vitals remains stable OBJECTIVE: Vital Signs-as noted below Exam: General-no sign of distress Eyes-sclera non icteric , PERRLA/EOMI ENT-normal exam Neck-no thyromegaly , no carotid bruit Lungs-no wheeze or rales Heart-regular S1/S2 Abdomen-soft, non tender , bowel sound active Extremities-no lower ext edema Neuro-AAO x3, no focal neurological deficit Lab data as noted below. ASSESSMENT & PLAN: This is a 66-year-old male who was admitted to the intensive care unit on March 01 after the patient suffered a cardiac arrest during this left hip surgery. The patient was resuscitated and intubated and next day he was taken to OR to complete his surgery and was extubated postsurgery the next day. S/P LEFT HIP ARTHROPLASTY : cont Management per orthopedics. on deep venous thrombosis prophylaxis Ortho recommends aspirin 325 b.i.d. post- discharge. PT/OT kt appreciated recommend rehab Social Service helping with discharge plan. pt prefers [facility] , if no bed available willing for [facility] or [facility] Cardiac arrest during the hip surgery. patient was bradycardic, pulseless, and received cardiopulmonary resuscitation and epinephrine then went to wide complex tachycardia and received 2 shocks and given amiodarone required brief episode of intubation in ICU Cardiology is following the patient Echocardiogram shows mild concentric left ventricular hypertrophy, normal ejection fraction, no regional wall motion abnormalities seen. 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 currently remains stable hemodynamically ALCOHOL ABUSE /WITHDRAWAL was on IV Precedex gtt -weaned off ordered for PRN Alcohol by critical care will D/C Alcohol tomorrow will start on PRN Neurontin /Clonidine for withdrawal symptom cont PRN Ativan for anxiety HTN : resumed PO Toprol XL , pt's home med Hyperlipidemia. Continue statin. HENRIK: Needs sleep study as an outpatient. ordered for BiPAP at bedtime while in the hospital. TOBACCO ABUSE DISORDER Smoking cessation counseling TYPE 2 DM : Hold p.o. medications insulin SSI BPH . Continue Flomax. DVT PROPHYLAXIS currently heparin subQ. aspirin 325 mg p.o. b.i.d.x one month on discharge DISPOSITION will need rehab referral made by Social service -pt prefers [facility] [place] as ist choice , willing to go to [facility] as next option or [facility] Vital Signs: Date Time Temp Pulse Resp B/P (MAP) Pulse Ox O2 Delivery O2 Flow Rate FiO2 03/07/17 17:16 37.0 80 18 154/75 (101) 94 Room Air 03/07/17 11:30 Room Air 03/07/17 10:33 36.9 85 18 141/82 (101) 95 Room Air 03/07/17 10:26 37.2 86 18 93 2.0 03/07/17 08:00 Room Air 03/07/17 07:41 37.2 86 18 155/74 (101) 93 Room Air 03/07/17 04:09 36.7 88 19 166/85 (112) 96 Room Air 03/07/17 04:00 Room Air 03/07/17 00:32 36.9 85 19 164/79 (107) 95 Room Air 03/06/17 23:59 Room Air 03/06/17 20:00 95 Room Air 03/06/17 19:23 36.7 90 20 147/77 (100) 95 Room Air Lab Results: Results Past 24 Hours Test 03/06/17 19:46 03/07/17 04:08 03/07/17 06:45 03/07/17 12:01 Range/Units Bedside Glucose 185 129 153 70-99 mg/dl Sodium Level 140 136-145 mmol/L Potassium Level 3.9 3.5-5.1 mmol/L Chloride Level 103 98-107 mmol/L Carbon Dioxide Level 29 21-32 mmol/L Anion Gap 8.0 3-11 mmol/L Blood Urea Nitrogen 17 7-18 mg/dl Creatinine 1.14 0.60-1.40 mg/dl Est Creatinine Clear Calc Drug Dose 100.7 ml/min Estimated GFR () 78.3 Estimated GFR (Non- 67.6 BUN/Creatinine Ratio 15.0 10-20 Random Glucose 137 70-99 mg/dl Calcium Level 7.9 8.5-10.1 mg/dl Phosphorus Level 3.0 2.5-4.9 mg/dl Magnesium Level 1.6 1.8-2.4 mg/dl Test 03/07/17 17:12 Range/Units Bedside Glucose 229 70-99 mg/dl
[2017-03-06] MEDS ORDERED: HYDROmorphone INJ 0.5 MG/0.5 ML SYR ONE (19:58)
[2017-03-06] MEDS ORDERED: NURSING VERBAL MED ORDER ONE (20:00)
[2017-03-06] MEDS: INSULIN GLARGINE SOLOSTAR 100 UNITS/ML 3 ML PEN SC SCH (21:02)
[2017-03-07 00:32] VITALS: BP 164/79; PULSE 85; TEMP 36.9; O2SAT 95
[2017-03-07] MEDS ORDERED: NURSING DECISION MEDICATION ORDER SCH (01:00)
[2017-03-07] MEDS: COUGH DROP (SUGAR FREE) LOZ 24 LOZ/1 BOX PO PRN ×3 (01:46→06:26)
[2017-03-07] MEDS: HYDROmorphone INJ 1 MG/ML SYR IV PRN ×5 (03:34→23:27)
[2017-03-07 04:09] VITALS: BP 166/85; PULSE 88; TEMP 36.7; O2SAT 96
[2017-03-07 04:42] LABS: CALCIUM 7.9 mg/dl (8.5-10.1); CREATININE 1.14 mg/dl (0.60-1.40); POTASSIUM 3.9 mmol/L (3.5-5.1)
[2017-03-07] MEDS: HEPARIN SOD 5000 UNIT/0.5 ML CARP SQ SCH ×3 (06:25→21:18)
--- NOTE | 2017-03-07 06:59 | PROGRESS NOTE ---
DATE: 03/06/2017 CHIEF COMPLAINT: Status post left total hip arthroplasty postoperative day #4. PROGRESS: Martin was and examined at bedside today. He is awake and alert. This is the best I have seen him since preoperatively. He knows who I am. He was able to walk about 60 feet today with physical therapy. He is having trouble flexing at his hip. He seems a little bit concerned that he is not flexing well at his hip. He is out of the ICU and on the medical service. He seems to be in good spirits. PHYSICAL EXAMINATION: LEFT HIP: The Prinovac dressing is intact into suction. His leg lengths are equal. He has active dorsiflexion and plantarflexion of his left ankle. He has good sensation of his quad and I am able to get him to fully fire his quad tendon at bedside. He is unable to flex at his hip. LABORATORIES: He has an H&H today of 8.5 and 25.5. His glucose is 189. IMPRESSION: Status post left total hip arthroplasty postoperative day #4. PLAN: He is currently on heparin for DVT prophylaxis at this time. Once he gets up and ambulating better, I am okay if he is on aspirin for DVT prophylaxis. He is also getting whiskey from the medicine team to help with DTs. I encouraged him to continue to be up and ambulating well with physical therapy. The hip replacement went very well. I am not surprised he is having soreness in his hip flexors. He just needs to work a little bit harder at it. He has no restrictions from an orthopedic standpoint. He will likely need a rehab facility. I do want to see him in my office 10 days from the day of surgery to remove the Prinovac dressing. FRANCHESCA
--- NOTE | 2017-03-07 07:32 | PROGRESS NOTE ---
DATE: 03/07/2017 CHIEF COMPLAINT: Status post left total hip arthroplasty postop day #5. PROGRESS: Martin was seen and examined at bedside. He is awake, alert and he looks pretty good. He is a little bit discouraged that he was not able to ambulate better yesterday with physical therapy. He is also a little concerned that he might be sent home too early. He was able to get some sleep last night, has no other complaints. PHYSICAL EXAMINATION: The Prevena dressing is intact and to suction. Leg lengths are equal. He has active dorsiflexion and plantarflexion of his left ankle. He has good sensation of his quad. I am able to get him to fully fire his quad tendon at bedside. He is having difficulty flexing his hip due to soreness. LABORATORY DATA: He has an H&H today of 8.5 and 25.5. He has not had any blood transfusion yet. His glucose is 137. IMPRESSION: Status post left total hip arthroplasty postop day #5. PLAN: He is currently on heparin for DVT prophylaxis. Once he starts to get up and ambulate more, I am okay using aspirin for DVT prophylaxis. I am concerned about his wound. He does have a Prineo VAC dressing in place. He can be up and weightbearing as tolerated and I encouraged ambulation with him at bedside. I also told him not to get discouraged that he is less than a week out from a hip replacement and with the 48 hours of intubation that he had it is going to take a little while before he gets his strength back. He understands that. I will continue to follow him closely. From an orthopedic standpoint, he is stable for discharge when medically stable. I want to see him in my office in 7-10 days from the day of surgery to take off the Prevena dressing. FRANCHESCA
[2017-03-07 07:41] VITALS: BP 155/74; PULSE 86; TEMP 37.2; O2SAT 93
[2017-03-07] MEDS: TAMSULOSIN HCL 0.4 MG CAP PO SCH (07:51)
[2017-03-07] MEDS: POTASSIUM CHLORIDE 20 MEQ TABCR PO SCH ×2 (07:52→21:02)
[2017-03-07] MEDS: ATORVASTATIN 10 MG TAB PO SCH (07:52)
[2017-03-07] MEDS: FUROSEMIDE 40 MG TAB PO SCH (07:52)
[2017-03-07] MEDS: DOCUSATE SODIUM 100 MG CAP PO SCH ×2 (07:53→21:03)
[2017-03-07] MEDS: POT PHOSPHATE MONOBASIC W/ SOD TAB PO SCH ×4 (07:53→21:03)
[2017-03-07] MEDS: METOPROLOL SUCC 50MG EXT REL TAB PO SCH (07:53)
[2017-03-07] MEDS: PANTOprazole SOD 40 MG TAB PO SCH (07:53)
[2017-03-07] MEDS: CEROVITE ADV FORMULA TAB PO SCH (07:53)
[2017-03-07] MEDS: NICOTINE 21 MG/24 HR TDSY EXT SCH (07:53)
[2017-03-07] MEDS: INSULIN ASPART 100 UNITS/ML 3 ML PEN SC SCH ×4 (07:56→21:16)
[2017-03-07] MEDS ORDERED: MAGNESIUM SULFATE 1GM / D5W 1 GM in PREMIXED IN D5W 100 ML IV STA (08:00)
[2017-03-07] MEDS: POLYETHYLENE (MIRALAX) 17 GM PACK PO SCH (08:09)
[2017-03-07] MEDS: THIAMINE HCL 100 MG TAB PO SCH (08:09)
[2017-03-07] MEDS: PREGABALIN 25MG CAP PO SCH ×3 (08:09→21:10)
[2017-03-07] MEDS: OXYCODONE/ACETAMINOPHEN 5-325 TAB PO PRN ×3 (09:19→21:01)
[2017-03-07 10:33] VITALS: BP 141/82; PULSE 85; TEMP 36.9; O2SAT 95
--- NOTE | 2017-03-07 13:05 | Pharmacy Progress Note ---
Glycemic: Assessment & Plan Date of Service Mar 07, 2017. Assessment & Plan The patient is currently receiving 29 units of insulin per day. BSGs ranging 129 - 189 mg/dl over the past 24hrs. * Basal insulin: Lantus 15 units every 24 hours * Correctional Insulin: Novolog Correction per scale ACHS Goal Range: Low 130 mg/dL - High 160 mg/dL Correction Factor: 25 mg/dL/unit * Prandial insulin: Per carb ratio of 1 unit per 9 grams CHO consumed BSGs continue to improve, no changes needed to inpatient regimen at this time. Diet is advanced and patient is getting closer to discharge so will consider resuming Januvia tomorrow to help with transition to the outpatient setting. Pharmacy will continue to monitor patient daily and write orders per [facility] inpatient glycemic control protocol. Thanks. DISCHARGE RECOMMENDATIONS: * A1c acceptable, continue Januvia on discharge
[2017-03-07 17:16] VITALS: BP 154/75; PULSE 80; TEMP 37; O2SAT 94
[2017-03-07] MEDS ORDERED: PRT40 PO (18:40)
[2017-03-07] MEDS ORDERED: THM100 PO (18:40)
--- NOTE | 2017-03-07 18:40 | Discharge Instructions ---
Discharge Instructions Date of Service Mar 07, 2017. Admission Reason for Admission: Left Hip Degenerative Joint Disease Discharge Discharge Diagnosis / Problem: LEFT HIP ARTHROPLASTY /ALCOHOL ABUSE Discharge Goals Goal(s): Decrease discomfort, Improve function, Increase independence, Improve disease control, Diagnostic testing, Therapeutic intervention Activity Recommendations Activity Level: Assistance Required Therapies: Physical Therapy, Occupational Therapy Weightbearing Status: Left weightbearing (as tolerated) . Additional Information Patient informed of condition: Yes Advance Directives: No DNR: No Level of Care: Acute Rehab Communicable Disease: No Prognosis: Stable Garcia Catheter: No Instructions / Follow-Up Instructions / Follow-Up FOLLOW UP WITH ORTHOPEDICS DR RUEL STEWART ON Monday03/13/17 IN OFFICE TO REMOVE DRESSING CONTINUE PHYSICAL THERAPY /OCCUPATIONAL THERAPY WT BEARING ON LEFT HIP /LEG TOLERATED DVT PROPHYLAXIS PER ORTHO RECOMMENDATION -ASPIRIN 325 MG TWICE DAILY FOR 1 MONTH IT IS VERY IMPORTANT FOR YOU TO QUIT DRINKING ALCOHOL PLEASE FOLLOW UP WITH ALCOHOL REHAB OR OTHER RESOURCES TO HELP YOU TO RECOVER FORM ALCOHOLISM Current Hospital Diet Patient's current hospital diet: AHA Diet (Heart Healthy), Diabetes Type 2 Diet Discharge Diet Recommended Diet: AHA Diet (Heart Healthy), Diabetes Type 2 Diet Procedures Procedures Performed: Left Anterior Total Hip Arthroplasty Pending Studies Studies pending at discharge: no Laboratory Results Hemoglobin A1c Test 03/01/17 18:00 Range/Units Estimated Average Glucose 177 mg/dl Hemoglobin A1c 7.8 H 4.5-5.6 % Medical Emergencies . Who to Call and When: Medical Emergencies: If at any time you feel your situation is an emergency, please call 911 immediately. . Non-Emergent Contact Non-Emergency issues call your: Primary Care Provider . . "Provider Documentation" section prepared by Jazmyne Joshi. . Core Measure Problem Core Measures: None
--- NOTE | 2017-03-07 18:43 | Progress Note ---
Internal Med Progress Note Date of Service: Mar 07, 2017. Provider Documentation: SUBJECTIVE: sitting up on chair , has minimum pain on left hip wants something to help him form withdrawal form alcohol concerned about DT pt is willing to quit drinking mentions that he was sober for almost 12 yrs in past before he started to drink again thinks as he managed to go thought he detox phase , it will be a good time to quit drinking willing to seek professional help if needed after he gets discharged from rehab OBJECTIVE: Vital Signs-as noted below Exam: General-no sign of distress Eyes-sclera non icteric , PERRLA/EOMI ENT-normal exam Neck-no thyromegaly , no carotid bruit Lungs-no wheeze or rales Heart-regular S1/S2 Abdomen-soft, non tender , bowel sound active Extremities-no lower ext edema Neuro-AAO x3, no focal neurological deficit Lab data as noted below. ASSESSMENT & PLAN: This is a 66-year-old male who was admitted to the intensive care unit on March 01 after the patient suffered a cardiac arrest during this left hip surgery. The patient was resuscitated and intubated and next day he was taken to OR to complete his surgery and was extubated postsurgery the next day. S/P LEFT HIP ARTHROPLASTY : cont Management per orthopedics. recovering well post op wt bearing on left lower ext as tolerated follow up with Orthopedics in 2 weeks on deep venous thrombosis prophylaxis Ortho recommends aspirin 325 b.i.d. post- discharge. PT/OT hueal appreciated recommend rehab Social Service helping with discharge plan. [facility] , if no bed available [facility] Cardiac arrest during the hip surgery. patient was bradycardic, pulseless, and received cardiopulmonary resuscitation and epinephrine then went to wide complex tachycardia and received 2 shocks and given amiodarone required brief episode of intubation in ICU Cardiology is following the patient Echocardiogram shows mild concentric left ventricular hypertrophy, normal ejection fraction, no regional wall motion abnormalities seen. 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 currently remains stable hemodynamically pt is counselled for alcohol abstinence ALCOHOL ABUSE /WITHDRAWAL was on IV Precedex gtt -weaned off ordered for PRN Alcohol by critical care -D/abida does not have tremors PRN Librium ordered for withdrawal symptoms pt is willing to seek help to quit drinking HTN : on PO Toprol XL , pt's home med Hyperlipidemia. Continue statin. HENRIK: Needs sleep study as an outpatient. ordered for BiPAP at bedtime while in the hospital. TOBACCO ABUSE DISORDER Smoking cessation counseling TYPE 2 DM : Hold p.o. medications-will be resumed on discharge insulin SSI BPH . Continue Flomax. DVT PROPHYLAXIS currently heparin subQ. aspirin 325 mg p.o. b.i.d.x one month on discharge DISPOSITION will need rehab referral made by Social service -pt prefers [facility] as ist choice , willing to go to [facility] as next option or [facility] Vital Signs: Date Time Temp Pulse Resp B/P (MAP) Pulse Ox O2 Delivery O2 Flow Rate FiO2 03/08/17 08:00 97 Room Air 03/08/17 07:37 36.7 82 14 170/92 (118) 97 Room Air 03/08/17 04:02 36.7 84 16 161/81 (107) 97 Room Air 03/07/17 23:35 Room Air 03/07/17 22:45 37.0 80 18 152/76 (101) 94 Room Air 03/07/17 20:34 Room Air 03/07/17 17:16 37.0 80 18 154/75 (101) 94 Room Air 03/07/17 11:30 Room Air 03/07/17 10:33 36.9 85 18 141/82 (101) 95 Room Air 03/07/17 10:26 37.2 86 18 93 2.0 Lab Results: Results Past 24 Hours Test 03/07/17 12:01 03/07/17 17:12 03/07/17 20:42 03/08/17 05:41 Range/Units Bedside Glucose 153 229 227 70-99 mg/dl Sodium Level 138 136-145 mmol/L Potassium Level 3.9 3.5-5.1 mmol/L Chloride Level 102 98-107 mmol/L Carbon Dioxide Level 28 21-32 mmol/L Anion Gap 8.0 3-11 mmol/L Blood Urea Nitrogen 18 7-18 mg/dl Creatinine 1.17 0.60-1.40 mg/dl Est Creatinine Clear Calc Drug Dose 98.0 ml/min Estimated GFR () 75.9 Estimated GFR (Non- 65.5 BUN/Creatinine Ratio 15.0 10-20 Random Glucose 144 70-99 mg/dl Calcium Level 8.2 8.5-10.1 mg/dl Phosphorus Level 4.3 2.5-4.9 mg/dl Magnesium Level 1.5 1.8-2.4 mg/dl
[2017-03-07] MEDS: LORAZEPAM 1 MG TAB PO PRN (18:47)
[2017-03-07] MEDS: CHLORDIAZEPOXIDE 25 MG CAP PO PRN (21:10)
[2017-03-07] MEDS: INSULIN GLARGINE SOLOSTAR 100 UNITS/ML 3 ML PEN SC SCH (21:17)
[2017-03-07 22:45] VITALS: BP 152/76; PULSE 80; TEMP 37; O2SAT 94
[2017-03-08] MEDS: OXYCODONE/ACETAMINOPHEN 5-325 TAB PO PRN ×3 (02:38→15:19)
[2017-03-08 04:02] VITALS: BP 161/81; PULSE 84; TEMP 36.7; O2SAT 97
[2017-03-08] MEDS: HEPARIN SOD 5000 UNIT/0.5 ML CARP SQ SCH ×2 (05:47→13:14)
[2017-03-08] MEDS: HYDROmorphone INJ 1 MG/ML SYR IV PRN ×2 (05:48→13:00)
[2017-03-08 06:42] LABS: CALCIUM 8.2 mg/dl (8.5-10.1); CREATININE 1.17 mg/dl (0.60-1.40); POTASSIUM 3.9 mmol/L (3.5-5.1)
[2017-03-08 06:50] LABS: PHOSPHORUS 4.3 mg/dl (2.5-4.9)
[2017-03-08 07:37] VITALS: BP 170/92; PULSE 82; TEMP 36.7; O2SAT 97
[2017-03-08 08:00] VITALS: O2SAT 97
[2017-03-08] MEDS ORDERED: SITAGLIPTIN 100 MG TAB PO SCH (09:00)
[2017-03-08] MEDS: POLYETHYLENE (MIRALAX) 17 GM PACK PO SCH (09:10)
[2017-03-08] MEDS: POT PHOSPHATE MONOBASIC W/ SOD TAB PO SCH ×2 (09:11→13:01)
[2017-03-08] MEDS: POTASSIUM CHLORIDE 20 MEQ TABCR PO SCH (09:11)
[2017-03-08] MEDS: FUROSEMIDE 40 MG TAB PO SCH (09:11)
[2017-03-08] MEDS: THIAMINE HCL 100 MG TAB PO SCH (09:11)
[2017-03-08] MEDS: ATORVASTATIN 10 MG TAB PO SCH (09:11)
[2017-03-08] MEDS: TAMSULOSIN HCL 0.4 MG CAP PO SCH (09:11)
[2017-03-08] MEDS: DOCUSATE SODIUM 100 MG CAP PO SCH (09:12)
[2017-03-08] MEDS: CEROVITE ADV FORMULA TAB PO SCH (09:12)
[2017-03-08] MEDS: PANTOprazole SOD 40 MG TAB PO SCH (09:12)
[2017-03-08] MEDS: METOPROLOL SUCC 50MG EXT REL TAB PO SCH (09:12)
[2017-03-08] MEDS: NICOTINE 21 MG/24 HR TDSY EXT SCH (09:14)
[2017-03-08] MEDS: INSULIN ASPART 100 UNITS/ML 3 ML PEN SC SCH ×2 (09:19→13:16)
[2017-03-08] MEDS: PREGABALIN 25MG CAP PO SCH ×2 (09:20→13:21)
[2017-03-08] MEDS: CHLORDIAZEPOXIDE 25 MG CAP PO PRN (09:20)
[2017-03-08] MEDS: LORAZEPAM 1 MG TAB PO PRN (09:20)
--- NOTE | 2017-03-08 10:24 | Pharmacy Progress Note ---
Pharmacy Glycemic Short Note 2 Date of Service Mar 08, 2017. OUTPATIENT ANTIDIABETIC REGIMEN: * Januvia 100 mg daily ASSESSMENT: * Patient received 39 units of insulin yesterday w/ BSGs ranging [id number] mg/ dL in the past 24 hours * PO intake is adequate * Will plan to resume outpatient Januvia at this time, which should hopefully help postprandial BSGs * No changes to insulin regimen but should be able to lower doses with resumption of oral agent PLAN FOR INPATIENT GLYCEMIC CONTROL: * Resume Januvia 100 mg daily * Continue Basal insulin * Lantus 15 units SQ qHS - hold if BSG < 140 * Bolus insulin * NovoLog per scale ACHS or Q6hrs while NPO * TIGHTEN Goal Range slightly to: Low 110 mg/dL - High 150 mg/dL * Correction Factor: 25 mg/dL/unit * Nutritional / Prandial insulin per carb ratio of 1 unit per 9 grams CHO consumed PLAN FOR DISCHARGE: * A1c acceptable for age/comorbidities * Continue outpatient Januvia
[2017-03-08] MEDS ORDERED: LBR25 PO (10:31)
[2017-03-08] MEDS ORDERED: BISACODYL 10 MG SUPP PR STA (10:57)
[2017-03-08] MEDS: MAGNESIUM SULFATE 1GM / D5W 1 GM in PREMIXED IN D5W 100 ML IV SCH ×2 (10:59→11:49)
[2017-03-08 11:41] VITALS: BP 125/77; PULSE 86; TEMP 37; O2SAT 92
[2017-03-08] MEDS ORDERED: BISACODYL 5 MG TABEC PO ONE (11:45)
[2017-03-08 14:28] VITALS: BP 125/77; PULSE 86; TEMP 37; O2SAT 92
[2017-03-08] MEDS ORDERED: OXYC-57 PO (15:25)
[2017-03-08] MEDS ORDERED: ATV1 PO (15:25)
[2017-03-08 15:49] VITALS: BP 110/72; PULSE 75; TEMP 37.3; O2SAT 95
--- NOTE | 2017-03-08 17:04 | Discharge Summary ---
Discharge Summary Date of Service Mar 08, 2017. Discharge Summary Admission Date: Mar 01, 2017 at 07:10 Discharge Date: Mar 08, 2017 Discharge Dis[facility] Principal Diagnosis: LEFT HIP ARTHROPLASTY /ALCOHOL ABUSE Procedures: Procedures Performed: Left Anterior Total Hip Arthroplasty ECHO : The left ventricle is normal in size. There is mild concentric left ventricular hypertrophy. No regional wall motion abnormalities noted. Ejection Fraction = 65-70%. Consultations: ORTHOPEDICS -DR STEWART CRITICAL CARE DR BUSCH CARDIOLOGY PULMONOLOGY Medication Reconciliation New Medications: Aspirin (Aspirin) 325 Mg Ectab 1 TAB PO BID for 30 Days, #60 TABS Chlordiazepoxide (Chlordiazepoxide HCl) 25 Mg Cap 50 MG PO Q6 PRN for Anxiety/Agitation, #10 CAP Lorazepam (Lorazepam) 1 Mg Tab 1 MG PO Q12 PRN for Anxiety/Insomnia for 10 Days, #20 TAB Oxycodone/Acetaminophen 5MG/325MG (Percocet 5MG/325MG) Tab 1 TAB PO Q4H PRN for Pain, #10 TAB PAIN Pantoprazole (Pantoprazole Sodium) 40 Mg Tab 40 MG PO QAM for 30 Days, #30 TAB Thiamine HCl (Vitamin B-1) 100 Mg Tab 100 MG PO QAM for 30 Days, #30 TAB Continued Medications: Atorvastatin (Lipitor) 10 Mg Tab 10 MG PO QAM, TAB Folic Acid (Folvite) 1 Mg Tab 1 TAB PO QAM for 90 Days, #90 TAB 1 Refill Metoprolol Succ (Toprol Xl) (Toprol-Xl) 50 Mg Tabcr 50 MG PO QAM, #30 TAB Pregabalin (Lyrica) 25 Mg Cap 25 MG PO TID, CAP Sitagliptin Phosphate (Januvia) 100 Mg Tab 100 MG PO QAM, TAB Tamsulosin Hcl (Flomax) 0.4 Mg Cap 0.4 MG PO QAM, CAP Referrals At Discharge Follow up Referrals: Orthopedics Referral - 03/13/17 with Ruel Stewart DO Admission Information HPI (per Admitting provider): DATE OF ADMISSION: 03/05/2017 CHIEF COMPLAINT: Status post left hip surgery during the patient had a cardiac arrest and alcohol withdrawal. HISTORY OF PRESENT ILLNESS: This is a 66-year-old male with past medical history significant for diabetes, hypertension, obesity, heavy tobacco and alcohol use and hyperlipidemia who was admitted on 03/01/2017 for left hip arthroplasty, during the procedure, intraoperatively, the patient transiently became bradycardic, unresponsive and then became hypotensive and poor pulses and oxygenation. CPR was begun and received IV epinephrine, THEN noted wide complex tachycardia s/p synchronized electrical cardioversion shocks 360 joules given with little change in rhythm and he received 300 mg IV amiodarone with gradual slowing of the heart rate. The surgical incision was closed without hip repair and femur head removed and was transferred to intensive care unit with intubated status. Critical Care Cardiology evaluated the patient and then later the patient was in sinus rhythm with right bundle branch block and pulmonary also followed the patient.Patient was stabilized and the next day, went back to the OR and completed right hip arthroplasty, tolerated the procedure okay and was sent back to ICU and after surgery the next day, he was extubated. Clint has history of heavy drinking, about a half gallon of rum every day and also smoking half pack of cigarettes every day. In the ICU, he was placed on rum 100 mL every 6 hours initially, he was on Precedex drip. Yesterday, Precedex drip was stopped, so his alcohol was increased to 100 mg of rum every 4 hours by critical care and also placed on Ativan p.o. Currently, the patient is hemodynamically stable, but oriented to only name, thinks he is in the hospital and but does not know the name of the hospital. Does not know the time. He is on clear liquids, not eating much. The patient complains of severe right hip pain, a 9/10 in severity. He denies any chest pain, no shortness of breath. No nausea. No abdominal pain. No blurred visions. We were asked to take over the patient for further management. Not much in therapy since surgery. ALLERGIES: None. MEDICATIONS AT HOME: The patient is on atorvastatin 10 mg p.o. daily, Ativan 1 mg p.o. every 12 hours, [place] 1 tablet every 6 hours p.r.n., Januvia 100 mg p.o. daily, metoprolol succinate XL 50 mg p.o. daily, Lyrica 25 mg p.o. t.i.d., folic acid 1 mg p.o. daily, Flomax 0.4 mg p.o. daily, albuterol 2 puffs every 4 hours p.r.n., and Lasix 40 mg p.o. daily. FAMILY HISTORY: Significant for diabetes, stroke, and asthma. SOCIAL HISTORY: Smokes half pack a day of cigarettes. Alcohol, drinks half gallon a day. REVIEW OF SYSTEMS: As per the HPI, rest of ROS unobtainable as patient somewhat confused. Physical Exam (per Admitting): PHYSICAL EXAMINATION: GENERAL: The patient is alert and awake and oriented x1. VITAL SIGNS: Temperature 36.6, pulse 96, respiration 21, blood pressure 162/82, oxygen 92% room air. HEENT: No pallor, no icterus. Pupils equal, round react to light. NECK: No JVD, no neck masses, no carotid bruits. CARDIOVASCULAR: S1, S2 heard. Tachycardia. No murmurs. RESPIRATORY SYSTEM: Clear to auscultation bilaterally. No accessory muscle use. No wheezing, no crackles. ABDOMEN: Soft, bowel sounds present. Mild diffuse discomfort. No guarding, no rigidity. CENTRAL NERVOUS SYSTEM: Alert and oriented x3. Nonfocal. EXTREMITIES: Status post right hip arthroplasty, dressing is intact. Hospital Course This is a 66-year-old male who was admitted to the intensive care unit on March 01 after the patient suffered a cardiac arrest during this left hip surgery. The patient was resuscitated and intubated and next day he was taken to OR to complete his surgery and was extubated postsurgery the next day. PHYSICAL EXAM ON DAY OF DISCHARGE: Exam: General-no sign of distress Eyes-sclera non icteric , PERRLA/EOMI ENT-normal exam Neck-no thyromegaly , no carotid bruit Lungs-no wheeze or rales Heart-regular S1/S2 Abdomen-soft, non tender , bowel sound active Extremities-no lower ext edema Neuro-AAO x3, no focal neurological deficit S/P LEFT HIP ARTHROPLASTY : cont Management per orthopedics. recovering well post op wt bearing on left lower ext as tolerated follow up with Orthopedics in 2 weeks appointment scheduled for office visit with Dr Stewart on Monday03/13/17 on deep venous thrombosis prophylaxis Ortho recommends aspirin 325 b.i.d. post- discharge. PT/OT eval appreciated recommend rehab Social Service helping with discharge plan. accepted at [facility] to be discharged to rehab Cardiac arrest during the hip surgery. patient was bradycardic, pulseless, and received cardiopulmonary resuscitation and epinephrine then went to wide complex tachycardia and received 2 shocks and given amiodarone required brief episode of intubation in ICU Cardiology is following the patient Echocardiogram shows mild concentric left ventricular hypertrophy, normal ejection fraction, no regional wall motion abnormalities seen. 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 currently remains stable hemodynamically pt is counselled for alcohol abstinence ALCOHOL ABUSE /WITHDRAWAL was on IV Precedex gtt -weaned off ordered for PRN Alcohol by critical care -D/abida does not have tremors PRN Librium ordered for withdrawal symptoms pt is willing to seek help to quit drinking HTN : on PO Toprol XL , pt's home med Hyperlipidemia. Continue statin. HENRIK: Needs sleep study as an outpatient. ordered for BiPAP at bedtime while in the hospital. TOBACCO ABUSE DISORDER Smoking cessation counseling TYPE 2 DM : Hold p.o. medications-will be resumed on discharge insulin SSI BPH . Continue Flomax. DVT PROPHYLAXIS currently heparin subQ. aspirin 325 mg p.o. b.i.d.x one month on discharge DISPOSITION transfer to [facility] today for rehab Total time spent on discharge = 35mins This includes examination of the patient, discharge planning, medication reconciliation, and communication with other providers. Discharge Instructions DI: Transfer Non Acute v4 Discharge Instructions Date of Service Mar 07, 2017. Admission Reason for Admission: Left Hip Degenerative Joint Disease Discharge Discharge Diagnosis / Problem: LEFT HIP ARTHROPLASTY /ALCOHOL ABUSE Discharge Goals Goal(s): Decrease discomfort, Improve function, Increase independence, Improve disease control, Diagnostic testing, Therapeutic intervention Activity Recommendations Activity Level: Assistance Required Therapies: Physical Therapy, Occupational Therapy Weightbearing Status: Left weightbearing (as tolerated) . Additional Information Patient informed of condition: Yes Advance Directives: No DNR: No Level of Care: Acute Rehab Communicable Disease: No Prognosis: Stable Garcia Catheter: No Instructions / Follow-Up Instructions / Follow-Up FOLLOW UP WITH ORTHOPEDICS DR RUEL STEWART ON Monday03/13/17 IN OFFICE TO REMOVE DRESSING CONTINUE PHYSICAL THERAPY /OCCUPATIONAL THERAPY WT BEARING ON LEFT HIP /LEG TOLERATED IT IS VERY IMPORTANT FOR YOU TO QUIT DRINKING ALCOHOL PLEASE FOLLOW UP WITH ALCOHOL REHAB OR OTHER RESOURCES TO HELP YOU TO RECOVER FORM ALCOHOLISM Current Hospital Diet Patient's current hospital diet: AHA Diet (Heart Healthy), Diabetes Type 2 Diet Discharge Diet Recommended Diet: AHA Diet (Heart Healthy), Diabetes Type 2 Diet Procedures Procedures Performed: Left Anterior Total Hip Arthroplasty Pending Studies Studies pending at discharge: no Laboratory Results Hemoglobin A1c Test 03/01/17 18:00 Range/Units Estimated Average Glucose 177 mg/dl Hemoglobin A1c 7.8 H 4.5-5.6 % Medical Emergencies . Who to Call and When: Medical Emergencies: If at any time you feel your situation is an emergency, please call 911 immediately. . Non-Emergent Contact Non-Emergency issues call your: Primary Care Provider . . "Provider Documentation" section prepared by Jazmyne Joshi. . Core Measure Problem Core Measures: None Additional Copies To Ruel Stewart, Matilde Jorgensen D.O.
[2017-03-08] MEDS ORDERED: ASPEC325 PO (18:18)
[2017-03-12] MEDS ORDERED: ASPEC325 PO (12:58)
[2017-03-18] MEDS ORDERED: ASPEC81 PO (14:15)
[2017-03-18] MEDS ORDERED: ATV/1 PO (14:15)
[2017-03-18] MEDS ORDERED: OXYC-57 PO (14:15)
[2017-03-18] MEDS ORDERED: SLWMEC PO (14:15)
[2017-03-18] MEDS ORDERED: MULT-1042 PO (14:15)
[2017-03-18] MEDS ORDERED: OXGN (14:16)
== END 2017-03-08 16:26 | DRG 469 ==
LOC: C.ACU 06:30 → C.MSICU 07:10 → UNDOADMIN 10:42 → C.MSICU 03-03 16:27 → C.2E 03-05 15:04 → ENRESERV 03-07 08:14 → C.MSW 03-07 10:30
PROVIDERS: ADMIT Orthopaedic Surgery; ATTEND Hospitalist
PROC: 0QT70ZZ Resection of Left Upper Femur, Open Approach (ICD-10-PCS; 2017-03-01)
PROC: 5A02215 Assistance with Cardiac Output using Pulsatile Compression, Continuous (ICD-10-PCS; 2017-03-01)
PROC: 5A1945Z Respiratory Ventilation, 24-96 Consecutive Hours (ICD-10-PCS; 2017-03-01)
PROC: 3E033XZ Introduction of Vasopressor into Peripheral Vein, Percutaneous Approach (ICD-10-PCS; 2017-03-01)
PROC: 5A2204Z Restoration of Cardiac Rhythm, Single (ICD-10-PCS; 2017-03-01)
PROC: 0BH17EZ Insertion of Endotracheal Airway into Trachea, Via Natural or Artificial Opening (ICD-10-PCS; 2017-03-01)
PROC: 06HM33Z Insertion of Infusion Device into Right Femoral Vein, Percutaneous Approach (ICD-10-PCS; 2017-03-01)
PROC: 0B9 Respiratory System, Drainage (ICD-10-PCS; 2017-03-01)
PROC: 0SRB04Z Replacement of Left Hip Joint with Ceramic on Polyethylene Synthetic Substitute, Open Approach (ICD-10-PCS; principal; 2017-03-02 07:30)
DX: M16.12 Unilateral primary osteoarthritis, left hip (principal); R09.2 Respiratory arrest; I97.711 Intraoperative cardiac arrest during other surgery; J98.11 Atelectasis; F10.239 Alcohol dependence with withdrawal, unspecified; I42.6 Alcoholic cardiomyopathy; E66.2 Morbid (severe) obesity with alveolar hypoventilation; Z68.41 Body mass index [BMI] 40.0-44.9, adult; Z53.09 Procedure and treatment not carried out because of other contraindication; E11.9 Type 2 diabetes mellitus without complications; I10 Essential (primary) hypertension; E78.5 Hyperlipidemia, unspecified; F32.9 Major depressive disorder, single episode, unspecified; N40.0 Benign prostatic hyperplasia without lower urinary tract symptoms; F17.210 Nicotine dependence, cigarettes, uncomplicated; Z79.899 Other long term (current) drug therapy; Z83.3 Family history of diabetes mellitus; Z82.3 Family history of stroke; Z82.5 Family history of asthma and other chronic lower respiratory diseases

== ENCOUNTER 2017-03-12 10:40 | Emergency (ER) | payer BC ==
[~2017-03-12] VITALS: Ht 185.4 cm; Wt 152.5 kg
[~2017-03-12 10:40] MED LIST changes: -ACETAMINOPHEN 500 MG TAB PO SCH; +ASPEC325 PO; -ATV/1 PO; +ATV1 PO; -CEFAZOLIN 3000MG IV PUSH 15 ML IV SCH; -FAMOTIDINE 20 MG TAB PO SCH; +FOLI1TAB7 PO; -FOLI1TAB8 PO; -GABAPENTIN 300 MG CAP PO SCH; -HYDR-4332 PO; -LACTATED RINGER'S 1000ML 1,000 ML IV SCH; -LACTATED RINGER'S 1000ML 500 ML IV ONE; -LACTATED RINGER'S 1000ML IV SCH; +LBR25 PO; -LSN5 PO; -NAPR220T40 PO; +OXYC-57 PO; +PRT40 PO; +THM100 PO
[2017-03-12 10:47] VITALS: TEMP 36.7; Ht 185.4 cm; Wt 152.5 kg
[2017-03-12] MEDS ORDERED: INSU1INJ2 SQ (11:03)
[2017-03-12] MEDS ORDERED: LVNIS30 SQ (11:03)
[2017-03-12] MEDS ORDERED: NICO1DIS10 TD (11:03)
[2017-03-12] MEDS ORDERED: DOCU1TAB6 PO (11:03)
[2017-03-12] MEDS ORDERED: INSDGI SC (11:03)
[2017-03-12] MEDS ORDERED: MRLP17X PO (11:03)
[2017-03-12] MEDS ORDERED: SENN8.6T7 PO (11:03)
[2017-03-12 12:07] LABS: URINE APPEARANCE CLEAR (CLEAR); URINE BILIRUBIN NEG (NEG); URINE COLOR YELLOW; URINE NITRITE NEG (NEG); URINE SPECIFIC GRAVITY 1.017 (1.000-1.030); UROBILINOGEN NEG (NEG)
[2017-03-12 12:09] LABS: MANUAL MICROSCOPIC REQUIRED? NO; REVIEW REQ? NO
[2017-03-12] MEDS ORDERED: ASPEC325 PO (12:58)
--- NOTE | 2017-03-12 13:17 | DIAGNOSTIC IMAGING REPORT ---
L HIP UNILATERAL 2 VIEWS CLINICAL HISTORY: Left hip pain COMPARISON: 03/02/2017 DISCUSSION: There are postsurgical changes of a total left hip arthroplasty. There are overlying skin yannick. There are no acute fractures. There is no dislocation. IMPRESSION: Postsurgical changes of a total left hip arthroplasty. No acute fractures or dislocations identified. Electronically signed by: Ryder Gunderson M.D. 03/12/2017 1:15 PM Dictated Date/Time: 03/12/2017 1:14 PM
[2017-03-12 13:47] LABS: BASO % 0.3 %; BASO ABS # 0.03 K/uL (0-0.2); COMPLETE YES; EOS % 1.4 %; IG% 1.8 %; LYMPH % 8.2 %; LYMPH ABS # 0.78 K/uL (1.2-3.4); MEAN CELL VOLUME 98.9 fL (80-100); MEAN CORPUSCULAR HEMOGLOBIN 32.2 pg (25-34); MEAN CORPUSCULAR HGB CONC 32.5 g/dl (32-36); MEAN PLATELET VOLUME 8.8 fL (7.4-10.4); MONO % 6.6 %; NEUT % 81.7 %; PLATELET COUNT 318 K/uL (130-400); RED BLOOD COUNT 2.83 M/uL (4.7-6.1); WHITE BLOOD COUNT 9.46 K/uL (4.8-10.8)
[2017-03-12] MEDS ORDERED: OXYCODONE/ACETAMINOPHEN 5-325 TAB PO STA (13:52)
[2017-03-12 14:02] LABS: INR 1.1 (0.9-1.1); PARTIAL THROMBOPLASTIN RATIO 1.1; PROTHROMBIN TIME (PATIENT) 11.5 SECONDS (9.0-12.0)
[2017-03-12 14:10] LABS: BLOOD UREA NITROGEN 22 mg/dl (7-18); CALCIUM 9.3 mg/dl (8.5-10.1); CARBON DIOXIDE 29 mmol/L (21-32); CHLORIDE 99 mmol/L (98-107); CREATININE 1.45 mg/dl (0.60-1.40); GLUCOSE 241 mg/dl (70-99); POTASSIUM 4.1 mmol/L (3.5-5.1); SODIUM 136 mmol/L (136-145)
[2017-03-12 14:15] LABS: CKMB/CK RATIO 2.8 (0-3.0)
[2017-03-12 15:40] VITALS: BP 111/68; PULSE 86; O2SAT 96
--- NOTE | 2017-03-12 17:58 | EMERGENCY ROOM VISIT NOTE ---
History First contact with patient: 11:11 Chief Complaint: FALL Stated Complaint: FALL History of Present Illness The patient is a 66 year old white male who presents to the Emergency Room by ambulance, with complaints of left hip pain after falling today. He is at [facility] for rehabilitation after a recent left anterior approach total hip arthroplasty. He was going to the bathroom today and leaned to fall forward. He could not correct himself and fell in the bathroom. There was no loss of consciousness. He denies any chest pain or shortness of breath prior to fall. There was no dizziness. He thinks he simply could not his Prevena wound VAC fell in the toilet. It is now not working. Patient had a cardiac arrhythmia on the operating table and required CPR as well as electrical shock for rhythm correction. It is uncertain whether he was in V. fib or V. tach. He notes substernal tenderness today that has been present since the operation. This is likely due to previous CPR. It is not any worse today than it was previously. His daughter accompanies him today. No other complaints. He is noted to be somnolent. He states he is not sleeping well at [facility]. Review of Systems REVIEW OF SYSTEM: HEENT: No dizziness, visual problems, hearing loss, or tinnitus. There is no difficulty swallowing and no oral lesions are present. PULMONARY: No cough, shortness of breath, sputum production or hemoptysis. CARDIOVASCULAR: No palpitations, or shortness of breath. Positive peripheral edema. GASTROINTESTINAL: No diarrhea, constipation, nausea, vomiting, or abdominal pain. GENITOURINARY: No dysuria, frequency, urgency or nocturia. NEUROLOGIC: No weakness, muscle tenderness, epilepsy or history of neurological problems. MUSCULOSKELETAL: No history of joint tenderness/swelling. Positive history of arthritis and arthralgias. SKIN: No rashes or lesions. PSYCHIATRIC: No history of depression or mental illness. ENDOCRINE: No history of thyroid disorders, or abnormal hair growth. Positive diabetes. Past Medical/Surgical History Medical Problems: (1) Osteoarthritis of left hip (2) Ventricular fibrillation Social History Smoking Status: Unknown if Ever Smoked Smokeless Tobacco Use: No Alcohol Use: heavy Drug Use: none Marital Status: Housing Status: lives with family, other (currently at [facility]) Occupation Status: employed Current/Historical Medications Scheduled Aspirin (Aspirin), 1 TAB PO BID Atorvastatin (Lipitor), 10 MG PO QAM Docusate Sodium (Docusate Sodium), 100 MG PO DAILY Enoxaparin (Lovenox), 30 MG SQ BID Folic Acid (Folvite), 1 TAB PO QAM Insulin Aspart (Novolog Penfill), 1 DOSE SQ QID Insulin Glargine (Lantus), 14 UNITS SC QPM Metoprolol Succ (Toprol Xl) (Toprol-Xl), 50 MG PO QAM Nicotine (Eq Nicotine), 1 PATCH TD DAILY Pantoprazole (Pantoprazole Sodium), 40 MG PO QAM Pregabalin (Lyrica), 25 MG PO TID Sennosides-Docusate Sodium (Senokot S), 1 TAB PO DAILY Sitagliptin Phosphate (Januvia), 100 MG PO QAM Tamsulosin Hcl (Flomax), 0.4 MG PO QAM Thiamine HCl (Vitamin B-1), 100 MG PO QAM Scheduled PRN Chlordiazepoxide (Chlordiazepoxide HCl), 50 MG PO Q6 PRN for Anxiety/Agitation Lorazepam (Lorazepam), 1 MG PO Q12 PRN for Anxiety/Insomnia Oxycodone/Acetaminophen 5MG/325MG (Percocet 5MG/325MG), 1 TAB PO Q4H PRN for Pain Polyethylene (Miralax), 17 GM PO DAILY PRN for Constipation Physical Exam Vital Signs Date Time Temp Pulse Resp B/P (MAP) Pulse Ox O2 Delivery O2 Flow Rate FiO2 03/12/17 15:40 86 18 111/68 96 03/12/17 13:54 79 18 155/73 94 Room Air 03/12/17 13:38 80 03/12/17 12:24 76 18 130/62 97 Room Air 03/12/17 10:49 74 03/12/17 10:47 36.7 77 18 132/73 96 Room Air Physical Exam Gen.: Well-developed, well-nourished, obese middle-aged white male, in no acute distress. Laying on a bed. Alert and oriented. Intermittently somnolent. Very large individual. Initially somnolent. Skin:Warm and dry with good turgor. No rashes or lesions. No ecchymosis or erythema. The patient is not diaphoretic. No abrasions. 2+ peripheral edema in the left leg, 1+ peripheral edema in the right leg. Wound VAC present on the left hip. No active suction. Healing surgical incision with yannick intact. No active drainage. No erythema or warmth. Minor tape frye are present. HEENT: Normocephalic atraumatic. Eyes PERRLA, EOMI. No conjunctiva or scleral injection. Nares patent bilaterally without turbinate enlargement. No significant drainage. No epistaxis. Oropharynx without erythema or exudate. Uvula midline, oral mucosa moist. No lesions present. Heart: Heart RRR. No MGR. Peripheral pulses are 2+. Lungs: Lungs are clear to auscultation. No crackles rhonchi or wheezing. Good air movement. The patient is able to take a deep breath. Abdomen: Abdomen was inspected, auscultated, and palpated. Obese. Bowel sounds present x 4. Soft, nontender to palpation. No hepato-splenomegaly. No masses noted. No rebound. Musculoskeletal: Patient has discomfort with palpation over his sternum. No bruising. Supple motion of his neck, shoulders, elbows, and wrists. Left leg appears to be slightly long. No pain with log rolling of the left hip. No pain with passive hip flexion. No crepitus. Intact motor function to the ankle and toes bilaterally. No pain with motion of the right leg at the hip, knee, or ankle. Neurologic: Gross sensation is intact across the lower external nares by soft touch. Peripheral pulses are 1+. Medical Decision & Procedures ER Provider Diagnostic Interpretation: EKG obtained today shows a sinus rhythm with a rate of 73. Occasional PVCs. No acute ST or T-wave changes. Was reviewed with Dr. ibarra. Left hip films obtained today were reviewed by radiology as well as myself. No evidence for fracture or dislocation. Implant appears unchanged from his postoperative films. Laboratory Results 03/12/17 13:33 Red Blood Count 2.83, Mean Corpuscular Volume 98.9, Mean Corpuscular Hemoglobin 32.2, Mean Corpuscular Hemoglobin Concent 32.5, Mean Platelet Volume 8.8, Neutrophils (%) (Auto) 81.7, Lymphocytes (%) (Auto) 8.2, Monocytes (%) (Auto) 6.6, Eosinophils (%) (Auto) 1.4, Basophils (%) (Auto) 0.3, Neutrophils # (Auto) 7.73, Lymphocytes # (Auto) 0.78, Monocytes # (Auto) 0.62, Eosinophils # (Auto) 0.13, Basophils # (Auto) 0.03 03/12/17 13:33 Test 03/12/17 11:40 03/12/17 13:33 Urine Color YELLOW Urine Appearance CLEAR (CLEAR) Urine pH 6.0 (4.5-7.5) Urine Specific [place] 1.017 (1.000-1.030) Urine Protein 2+ (NEG) Urine Glucose (UA) NEG (NEG) Urine Ketones NEG (NEG) Urine Occult Blood TRACE (NEG) Urine Nitrite NEG (NEG) Urine Bilirubin NEG (NEG) Urine Urobilinogen NEG (NEG) Urine Leukocyte Esterase NEG (NEG) Urine WBC (Auto) 1-5 /hpf (0-5) Urine RBC (Auto) 0-4 /hpf (0-4) Urine Hyaline Casts (Auto) 1-5 /lpf (0-5) Urine Epithelial Cells (Auto) 5-10 /lpf (0-5) Urine Bacteria (Auto) NEG (NEG) White Blood Count 9.46 K/uL (4.8-10.8) Red Blood Count 2.83 M/uL (4.7-6.1) Hemoglobin 9.1 g/dL (14.0-18.0) Hematocrit 28.0 % (42-52) Mean Corpuscular Volume 98.9 fL (80-100) Mean Corpuscular Hemoglobin 32.2 pg (25-34) Mean Corpuscular Hemoglobin Concent 32.5 g/dl (32-36) Platelet Count 318 K/uL (130-400) Mean Platelet Volume 8.8 fL (7.4-10.4) Neutrophils (%) (Auto) 81.7 % Lymphocytes (%) (Auto) 8.2 % Monocytes (%) (Auto) 6.6 % Eosinophils (%) (Auto) 1.4 % Basophils (%) (Auto) 0.3 % Neutrophils # (Auto) 7.73 K/uL (1.4-6.5) Lymphocytes # (Auto) 0.78 K/uL (1.2-3.4) Monocytes # (Auto) 0.62 K/uL (0.11-0.59) Eosinophils # (Auto) 0.13 K/uL (0-0.5) Basophils # (Auto) 0.03 K/uL (0-0.2) RDW Standard Deviation 49.7 fL (36.4-46.3) RDW Coefficient of Variation 13.9 % (11.5-14.5) Immature Granulocyte % (Auto) 1.8 % Immature Granulocyte # (Auto) 0.17 K/uL (0.00-0.02) Prothrombin Time 11.5 SECONDS (9.0-12.0) Prothromb Time International Ratio 1.1 (0.9-1.1) Activated Partial Thromboplast Time 27.8 SECONDS (21.0-31.0) Partial Thromboplastin Ratio 1.1 Anion Gap 8.0 mmol/L (3-11) Est Creatinine Clear Calc Drug Dose 79.3 ml/min Estimated GFR () 58.6 Estimated GFR (Non- 50.5 BUN/Creatinine Ratio 15.0 (10-20) Calcium Level 9.3 mg/dl (8.5-10.1) Total Creatine Kinase 57 U/L (39-308) Creatine Kinase MB 1.6 ng/ml (0.5-3.6) Creatine Kinase MB Ratio 2.8 (0-3.0) Troponin I < 0.015 ng/ml (0-0.045) CBC, PRP, UA, CK/CK-MB, PT/INR, and troponin were obtained. INR subtherapeutic at 1.1. Cardiac enzymes are unremarkable. Mildly anemic. Mildly dry with BUN/ creatinine at 22 and 1.4. UA is unremarkable. Medications Administered Medications (Trade) Dose Ordered Sig/Sujey Route Start Time Stop Time Status Last Admin Dose Admin Oxycodone/ Acetaminophen (Percocet 5-325mg Tab) 1 tab NOW STAT PO 03/12/17 13:52 03/12/17 13:53 DC 03/12/17 14:05 1 TAB Percocet 1 tablet by mouth ED Course Patient and his family were educated regarding today's findings. Conservative care measures were discussed. IV was established. Labs were obtained. EKG and left hip films were also obtained. He denies any new chest pain. Current chest discomfort was present while he was in the hospital. I think it is likely from the CPR during surgery. Patient did get up from the bed with assistance twice today to urinate as well as to move his bowels. His wound VAC is not functioning. I did speak with Dr. Pickett regarding this patient and he agreed that the wound VAC should come off. This was removed by me. New pressure dressing was applied. Follow-up with Dr. Dee tomorrow as scheduled for wound evaluation. Patient was reassured that I do not suspect new cardiac event given his enzymes and EKG findings. I do think that his fall was mechanical in nature and not related to another cardiac event. He has significant peripheral edema. He does not have STEPAN hose in place currently. I did request that he put them on when he returns to [facility]. Return to the ED for any other concerns. I did reassess the patient and he was much more alert. He denied any other areas of discomfort. He was given a tablet of Percocet for left hip pain while in the ED. Care plan was discussed with Dr. bIarra. He was transported back to [facility]. Medical Decision Possibility of new cardiac arrhythmia, MA, PE, hip dislocation, femur fracture, UTI, orthostatic hypotension, anemia, and dehydration were considered among others. [place] Drug Monitoring Program Search Results: no issues identified Medication Reconcilliation Current Medication List: was personally reviewed by me Blood Pressure Screening Patient's blood pressure: Normal blood pressure Impression Primary Impression: Fall Departure Information Dispostion Home / Self-Care Forms HOME CARE DOCUMENTATION FORM, IMPORTANT VISIT INFORMATION Patient Instructions [facility] Additional Instructions Follow-up with Dr. Dee tomorrow as scheduled Keep the pressure dressing on the incision Continue your total hip precautions Continue rehabilitation with previous restrictions Return to the ED for any other concerns Problem Qualifiers Primary Impression: Fall Encounter type: initial encounter Qualified Codes: W19.XXXA - Unspecified fall, initial encounter
[2017-03-13] MEDS ORDERED: SODI1ENE PR (11:07)
[2017-03-13] MEDS ORDERED: ASPI325T45 PO (11:07)
[2017-03-13] MEDS ORDERED: GLGKIT SC (11:07)
[2017-03-13] MEDS ORDERED: MOML PO (11:07)
[2017-03-13] MEDS ORDERED: ATV/1 PO (11:07)
[2017-03-13] MEDS ORDERED: DEXT40GE20 TOP (11:07)
[2017-03-13] MEDS ORDERED: SITA50TA3 PO (11:07)
[2017-03-13] MEDS ORDERED: ACET-1256 PO (11:07)
[2017-03-13] MEDS ORDERED: BISA10SU5 PR (11:07)
[2017-03-13] MEDS ORDERED: THIA100T11 PO (11:07)
== END 2017-03-12 15:45 ==
LOC: EDBD 10:40 → C.EDA 10:41
DX: M25.552 Pain in left hip (principal); E66.9 Obesity, unspecified; Z79.01 Long term (current) use of anticoagulants; Z79.4 Long term (current) use of insulin; Z79.82 Long term (current) use of aspirin; Z79.899 Other long term (current) drug therapy; W19.XXXA Unspecified fall, initial encounter; Y92.192 Bathroom in other specified residential institution as the place of occurrence of the external cause; Z98.890 Other specified postprocedural states

== ENCOUNTER 2017-03-13 09:15 | Inpatient (IN) | payer BC ==
[~2017-03-13] VITALS: Ht 185.4 cm; Wt 152.2 kg
[~2017-03-13 09:15] MED LIST changes: +DOCU1TAB6 PO; +INSDGI SC; +INSU1INJ2 SQ; +LVNIS30 SQ; +MRLP17X PO; +NICO1DIS10 TD; +SENN8.6T7 PO
[2017-03-13] MEDS ORDERED: SODIUM CHLORIDE 0.9% 1000ML 1,000 ML IV STA ×3 (10:02→12:00)
[2017-03-13] MEDS ORDERED: ACETAMINOPHEN 500 MG TAB PO STA (10:02)
[2017-03-13 10:26] LABS: HEMATOCRIT 27.8 % (42-52); MEAN CELL VOLUME 98.2 fL (80-100); MEAN CORPUSCULAR HEMOGLOBIN 32.2 pg (25-34); MEAN CORPUSCULAR HGB CONC 32.7 g/dl (32-36); MEAN PLATELET VOLUME 8.9 fL (7.4-10.4); PLATELET COUNT 363 K/uL (130-400); RED BLOOD COUNT 2.83 M/uL (4.7-6.1)
[2017-03-13 10:30] LABS: INR 1.1 (0.9-1.1)
[2017-03-13] MEDS ORDERED: OPTIRAY 320 IV PRN (10:30)
[2017-03-13 10:34] LABS: ALT/SGPT 23 U/L (12-78); BLOOD UREA NITROGEN 17 mg/dl (7-18); BUN/CREATININE RATIO 11.5 (10-20); CALCIUM 9.4 mg/dl (8.5-10.1); CARBON DIOXIDE 26 mmol/L (21-32); CHLORIDE 99 mmol/L (98-107); CREATININE 1.49 mg/dl (0.60-1.40); GLUCOSE 258 mg/dl (70-99); MAGNESIUM 1.5 mg/dl (1.8-2.4); POTASSIUM 3.9 mmol/L (3.5-5.1); SODIUM 134 mmol/L (136-145)
[2017-03-13 10:45] LABS: ALB/GLOB RATIO 0.5 (0.9-2); ALKALINE PHOSPHATASE 121 U/L (45-117); AST/SGOT 21 U/L (15-37)
[2017-03-13 10:58] LABS: BASO % 0.2 %; BASO ABS # 0.03 K/uL (0-0.2); COMPLETE YES; EOS % 0.3 %; IG% 0.6 %; LYMPH % 3.9 %; LYMPH ABS # 0.58 K/uL (1.2-3.4); MONO % 6.3 %; NEUT % 88.7 %
[2017-03-13] MEDS ORDERED: BISA10SU5 PR (11:07)
[2017-03-13] MEDS ORDERED: GLGKIT SC (11:07)
[2017-03-13] MEDS ORDERED: ATV/1 PO (11:07)
[2017-03-13] MEDS ORDERED: SITA50TA3 PO (11:07)
[2017-03-13] MEDS ORDERED: MOML PO (11:07)
[2017-03-13] MEDS ORDERED: SODI1ENE PR (11:07)
[2017-03-13] MEDS ORDERED: ASPI325T45 PO (11:07)
[2017-03-13] MEDS ORDERED: ACET-1256 PO (11:07)
[2017-03-13] MEDS ORDERED: DEXT40GE20 TOP (11:07)
[2017-03-13] MEDS ORDERED: THIA100T11 PO (11:07)
[2017-03-13 11:17] LABS: URINE APPEARANCE CLEAR (CLEAR); URINE BILIRUBIN NEG (NEG); URINE COLOR YELLOW; URINE NITRITE NEG (NEG); URINE PH 5.5 (4.5-7.5); URINE SPECIFIC GRAVITY 1.019 (1.000-1.030); UROBILINOGEN NEG (NEG)
[2017-03-13 11:18] LABS: MANUAL MICROSCOPIC REQUIRED? NO; REVIEW REQ? NO
--- NOTE | 2017-03-13 11:19 | EMERGENCY ROOM VISIT NOTE ---
History Report prepared by Fabrice: Ashlyn Lopez Under the Supervision of: Lyndsay EstradaO. First contact with patient: 09:47 Chief Complaint: GI ASSESSMENT Stated Complaint: GI ASSESSMENT/FEVER Nursing Triage Summary: Pt presents via BLS litter from [facility]. Per EMT, pt seen here yesterday s/ p fall. This morning pt began to complain of left sided abd pain, loose stools. Pt unable to state if blood in stool. Denies n/v. Denies hx of diverticulitis. Pt reports two weeks ago had left hip surgery with wound vac in place. Pt states he went into cardiac arrest during the surgery. Pt reports cough. Pt reports heavy alcohol and nicotine use. Has a nicotine patch to left upper arm. History of Present Illness The patient is a 66 year old male who presents to the Emergency Room with complaints of a persistent fever of 101 degrees that began last night. The patient was seen in the Emergency Department yesterday after falling down and experiencing discomfort in his hip. He notes that he had recent left hip surgery , and had a wound vac in place until yesterday. The patient states that he has had frequent diarrhea that began yesterday during his visit. The patient denies any blood in his stool. He notes that after he got home yesterday, he became febrile and started experiencing left upper quadrant pain. Per nursing staff, the patient was given Tylenol to reduce his fever. The patient denies any nausea , dysuria, rashes, sores, or previous bowel movement complications. The patient notes he has a sore throat, cough and loss of appetite. He states that he has has a colonoscopy in the past which was normal. Source of History: patient Onset: Last night Position: other (Global ) Symptom Intensity: 101 degrees Quality: other (fever ) Timing: other (persistent ) Associated Symptoms: + fevers, + sorethroat, + cough, + diarrhea, No nausea , No hematochezia, No urinary symptoms, No rash Review of Systems See HPI for pertinent positives & negatives. A total of 10 systems reviewed and were otherwise negative. Past Medical & Surgical Medical Problems: (1) DM type 2 (diabetes mellitus, type 2) (2) Dyslipidemia (3) History of arthroplasty of left hip (4) HTN (hypertension) (5) Lumbar degenerative disc disease (6) Osteoarthritis of left hip (7) Ventricular fibrillation Surgical Problems: (1) History of arthroplasty of left hip Social History Problems: (1) Alcohol abuse Family History No pertinent family history stated. Social History Smoking Status: Current Every Day Smoker Alcohol Use: heavy Drug Use: none Marital Status: Housing Status: lives with family, other Occupation Status: employed Current/Historical Medications Scheduled Aspirin (Aspirin), 325 MG PO BID Atorvastatin (Lipitor), 10 MG PO HS Enoxaparin (Lovenox), 30 MG SQ BID Folic Acid (Folvite), 1 TAB PO QAM Insulin Aspart (Novolog Penfill), 1 DOSE SQ ACHS Insulin Glargine (Lantus), 16 UNITS SC HS Metoprolol Succ (Toprol Xl) (Toprol-Xl), 50 MG PO QAM Nicotine (Eq Nicotine), 1 PATCH TD DAILY Pantoprazole (Pantoprazole Sodium), 40 MG PO QAM Pregabalin (Lyrica), 25 MG PO TID Sennosides-Docusate Sodium (Senokot S), 1 TAB PO DAILY Sitagliptin (Januvia), 100 MG PO DAILY Tamsulosin Hcl (Flomax), 0.4 MG PO QAM Thiamine Hcl (Vitamin B-1), 100 MG PO QPM Scheduled PRN Acetaminophen (Tylenol), 500 MG PO Q4 PRN for Pain Bisacodyl (Bisacodyl), 1 SUPP NH DAILY PRN for Constipation Chlordiazepoxide (Chlordiazepoxide HCl), 50 MG PO Q6 PRN for Anxiety/Agitation Dextrose (Diabetic Use) (Glucose), 1 APPLN TOP DAILY PRN for HYPOGLYCEMIA Docusate Sodium (Docusate Sodium), 100 MG PO BID PRN for Constipation Glucagon (Glucagon Emergency Kit), 1 MG SC UD PRN for HYPOGLYCEMIA Lorazepam (Ativan), 1 MG PO Q4 PRN for Anxiety Magnesium Hydroxide (Milk Of Magnesia), 30 ML PO DAILY PRN for Constipation Oxycodone/Acetaminophen 5MG/325MG (Percocet 5MG/325MG), 1 TAB PO Q4H PRN for Pain Polyethylene (Miralax), 17 GM PO DAILY PRN for Constipation Sodium Phosphates (Fleet Enema Six Pack), 1 DOSE NH DAILY PRN for Constipation Allergies Coded Allergies: No Known Allergies (Verified , 03/13/17) Physical Exam Vital Signs Date Time Temp Pulse Resp B/P (MAP) Pulse Ox O2 Delivery O2 Flow Rate FiO2 03/13/17 12:29 72 20 100/57 96 Nasal Cannula 2.0 03/13/17 11:22 37.2 77 20 92/57 96 Nasal Cannula 2.0 99/58 03/13/17 10:24 78 22 112/65 97 Nasal Cannula 2.0 03/13/17 09:30 79 03/13/17 09:28 38.6 82 20 104/54 93 Room Air Physical Exam GENERAL: alert, ill appearing, well nourished, no distress, non-toxic, mildly diaphoretic EYE EXAM: normal conjunctiva, PERRL and EOM's grossly intact OROPHARYNX: no exudate, no erythema, lips, buccal mucosa, and tongue normal and mucous membranes are dry NECK: supple, no nuchal rigidity, no adenopathy, non-tender LUNGS: Diminished lung sounds. Normal chest wall mechanics HEART: no murmurs, S1 normal and S2 normal ABDOMEN: abdomen soft, normo-active bowel sounds, no masses, no rebound or guarding, tenderness in LUQ and left lateral abdomen, dull to percussion BACK: Back is symmetrical on inspection and there is no deformity, no midline tenderness, no CVA tenderness. SKIN: no rashes and no bruising UPPER EXTREMITIES: upper extremities are grossly normal. LOWER EXTREMITIES: Dressing intact to left hip, no surrounding erythema, drainage, or foul odor. Trace to +1 edema slightly worse on left, decreased ROM of LLE secondary to pain. NEURO EXAM: Normal sensorium, cranial nerves II-XII grossly intact, normal speech, no gross weakness of arms, no gross weakness of legs. Medical Decision & Procedures ER Provider Diagnostic Interpretation: Radiology results have been interpreted by the radiologist and reviewed by me. CT SCAN OF THE ABDOMEN AND PELVIS WITH IV CONTRAST FINDINGS: Lung bases: The heart is enlarged and without pericardial effusion. There is lipomatous hypertrophy of the interatrial septum. The coronary arteries are densely calcified. There are trace pleural effusions with dependent atelectasis. Liver: The contrast-enhanced liver is enlarged, measuring 24.8 cm in length. The liver demonstrates diffusely diminished attenuation consistent with hepatic steatosis. Fatty sparing is seen adjacent to gallbladder fossa. There is no intrahepatic biliary ductal dilatation. The hepatic veins and portal veins are patent. Gallbladder: Unremarkable. Spleen: The spleen is enlarged measuring 15.3 cm and length. Pancreas: Moderately atrophic and grossly unremarkable. Adrenal glands: Unremarkable. Kidneys: The contrast enhanced kidneys are atrophic and without hydronephrosis. The kidneys enhance symmetrically. Abdominal vasculature: The abdominal aorta is normal in course and caliber noting advanced atherosclerotic calcification. Bowel: There is moderate diverticulosis of left colon. There is a long segment of wall thickening with pericolonic inflammation involving the distal descending and proximal sigmoid colon which extends at least 17 cm. No abscess is seen. No bowel obstruction is identified. The appendix is well-visualized and normal. Peritoneum: There is no intraperitoneal free air or abdominal ascites. Small foci of gas are present within the abdominal pannus, likely related to subcutaneous injections. Lymphadenopathy: None. Pelvic viscera: Evaluation of the pelvis is degraded by streak artifact from a left hip arthroplasty. The the bladder is decompressed and not well dilated. Foci of intraluminal gas are noted. The prostate gland is mildly heterogeneous. Skeletal structures: The skeletal structures are osteopenic. A left hip arthroplasty is in place. There is moderate lumbosacral spondylosis with postoperative change from L2-L3 spinal fusion. There is a right-sided pars defect at L5. No lytic or blastic lesions are seen. There are healed left posterior rib fractures. IMPRESSION: 1. There is moderate diverticulosis of the left colon. There is a long segment (at least 17 cm) of wall thickening/edema and pericolonic inflammation involving the distal descending and proximal sigmoid colon. Although there is significant diverticular disease in this region, the length of involvement favors a nonspecific colitis. Diverticulitis is considered less likely and clinical correlation will be required. 2. No intraperitoneal free air is identified and there is no evidence of abscess. 3. Cardiomegaly and trace pleural effusions. 4. Hepatomegaly and severe hepatic steatosis. 5. Splenomegaly. 6. Additional findings as above. Electronically signed by: Anam Layton M.D. 03/13/2017 11:[address] ANGIOGRAPHY OF THE CHEST, PULMONARY EMBOLUS PROTOCOL FINDINGS: No central or lobar pulmonary emboli are identified. Segmental and subsegmental pulmonary arteries are suboptimally assessed on this exam. Heart is moderately enlarged. There is moderate coronary artery calcification. The main pulmonary artery is dilated, measuring 4.2 cm. There are trace bilateral pleural effusions with associated atelectasis. There is no consolidation to suggest pneumonia. A few indeterminate pulmonary nodules are noted, including a 5 mm left lower lobe nodule shown image 189 of 316, a 5 mm left lower lobe nodule shown image 125 and a 5 mm right middle lobe nodule shown on image 150. Note is made of a heavily calcified 2.1 x 2.1 cm abnormality either arising from or adjacent to the mid thoracic esophagus. There are several old left-sided rib fractures. In addition, there are several acute to subacute nondisplaced anterior left-sided rib fractures. There is no pneumothorax. In addition, a few acute to subacute nondisplaced anterior right-sided rib fractures are noted. IMPRESSION: 1. No central or lobar pulmonary emboli. Segmental and subsegmental pulmonary arteries suboptimally assessed. 2. Trace bilateral pleural effusions with associated atelectasis. 3. Numerous acute to subacute nondisplaced bilateral anterior rib fractures. No pneumothorax. 4. Moderate cardiomegaly. Dilatation of the main pulmonary artery which raises the possibility of pulmonary arterial hypertension. 5. 2.1 x 2.1 cm heavily calcified abnormality adjacent to or arising from the mid thoracic esophagus. This could reflect a calcified thoracic lymph node or calcified esophageal lesion such as a leiomyoma. This can be assessed on a follow-up chest CT in 6 months. 6. Several indeterminate but low suspicion pulmonary nodules. A follow-up chest CT in 6 months is recommended to ensure stability. Electronically signed by: Usama Ruffin M.D. 03/13/2017 11:47 AM Dictated Date/Time: 03/13/2017 11:29 AM Laboratory Results Test 03/13/17 09:50 03/13/17 10:19 03/13/17 10:25 03/13/17 10:50 Prothrombin Time 12.0 SECONDS (9.0-12.0) Prothromb Time International Ratio 1.1 (0.9-1.1) Total Bilirubin 0.4 mg/dl (0.2-1) Aspartate Amino Transf (AST/SGOT) 21 U/L (15-37) Alanine Aminotransferase (ALT/SGPT) 23 U/L (12-78) Alkaline Phosphatase 121 U/L (45-117) Troponin I < 0.015 ng/ml (0-0.045) Total Protein 6.0 gm/dl (6.4-8.2) Albumin 2.1 gm/dl (3.4-5.0) Globulin 3.9 gm/dl (2.5-4.0) Albumin/Globulin Ratio 0.5 (0.9-2) Thyroid Stimulating Hormone (TSH) 2.220 uIu/ml (0.300-4.500) Bedside Lactic Acid Venous 0.77 mmol/L (0.90-1.70) Influenza Type A Antigen Neg for Influ A (NEG) Influenza Type B Antigen Neg for Influ B (NEG) Urine Color YELLOW Urine Appearance CLEAR (CLEAR) Urine pH 5.5 (4.5-7.5) Urine Specific [place] 1.019 (1.000-1.030) Urine Protein 2+ (NEG) Urine Glucose (UA) TRACE (NEG) Urine Ketones NEG (NEG) Urine Occult Blood NEG (NEG) Urine Nitrite NEG (NEG) Urine Bilirubin NEG (NEG) Urine Urobilinogen NEG (NEG) Urine Leukocyte Esterase NEG (NEG) Urine WBC (Auto) 0 /hpf (0-5) Urine RBC (Auto) 0-4 /hpf (0-4) Urine Hyaline Casts (Auto) 0 /lpf (0-5) Urine Epithelial Cells (Auto) 5-10 /lpf (0-5) Urine Bacteria (Auto) NEG (NEG) Laboratory results per my review. Medications Administered Medications (Trade) Dose Ordered Sig/Sujey Route Start Time Stop Time Status Last Admin Dose Admin Acetaminophen (Tylenol Tab) 1,000 mg NOW STAT PO 03/13/17 10:02 03/13/17 10:04 DC 03/13/17 10:22 1,000 MG Sodium Chloride 1,000 ml @ 999 mls/hr Q1H1M STAT IV 03/13/17 10:02 03/13/17 11:02 DC 03/13/17 10:22 999 MLS/HR Sodium Chloride 1,000 ml @ 999 mls/hr Q1H1M STAT IV 03/13/17 11:24 03/13/17 12:24 DC 03/13/17 11:24 999 MLS/HR Metronidazole (Flagyl Tab) 500 mg NOW STAT PO 03/13/17 11:55 03/13/17 12:01 DC 03/13/17 12:18 500 MG Sodium Chloride 1,000 ml @ 999 mls/hr Q1H1M STAT IV 03/13/17 12:00 03/13/17 13:00 DC 03/13/17 12:18 999 MLS/HR ECG Indication: abdominal pain Rate (beats per minute): 79 Rhythm: normal sinus Findings: no acute ischemic change, other (normal axis, normal intervals, aberrant, baseline, flat T-wave in lead 3, low voltage) ED Course 0950: The patient was evaluated in room B3. A complete history and physical exam was performed. 1002: Ordered sodium chloride 1000ml @ 999 mls/hr IV, Tylenol 1000mg PO 1124: Ordered sodium chloride 1000,l @ 999 mls/hr IV 1155: Ordered Flagyl 500mg PO 1200: Ordered sodium chloride 1000ml @ 999mls/hr IV 1221: Upon reevaluation, the patient is resting comfortably. I discussed the findings and the treatment plan with the patient. He expresses agreement and understanding. I spoke with of the [facility]. The patient will be evaluated for further management. 1228: The patient's blood pressure is 100/57. He is still complaining of some pain. Medical Decision Differential diagnosis: Etiologies such as viral syndrome, otitis, pharyngitis, pneumonia, influenza, meningitis, urinary tract infection, sepsis, bacteremia, as well as others were entertained. Pt found to have colitis on CT which explains abd pain and diarrhea. Cultures sent. Concern for C.diff given recent hospitalization and likely antibiotics perioperatively. Will start with flagyl and await c.diff culture to potentially broaden. No evidence of perf or abscess. Concern for evolving sepsis. Pt with borderline initial blood pressures, responded well to IVF. Pt Lactic acid reassuring, however leukocytosis noted. Pt with hx of alcohol and tobacco abuse, likely reason for pulmonary findings and hepatomegaly. Medication Reconcilliation Current Medication List: was personally reviewed by mo Blood Pressure Screening Patient's blood pressure: Low blood pressure Blood pressure disposition: Did not require urgent referral Consults Time Called: 1216 Consulting Physician: Dr. Alverto Lyman Returned Call: 1221 I reviewed the patient's case with . Nura will evaluate the patient for further management. Impression Primary Impression: Colitis Additional Impressions: Fever SIRS (systemic inflammatory response syndrome) Sepsis Diarrhea Critical Care I have personally spent 35 minutes of critical care time in the direct management of this patient. This includes bedside care, interpretation of diagnostic studies, and testing, discussion with consultants, patient, and family members, and other required patient management activities. This 35 minutes is in excess of all separately billable procedures. Scribe Attestation The scribe's documentation has been prepared under my direction and personally reviewed by me in its entirety. I confirm that the note above accurately reflects all work, treatment, procedures, and medical decision making performed by me. Departure Information Dispostion Being Evaluated By Hospitalist Matilde Redd D.O. (PCP) Patient Instructions My [facility] Problem Qualifiers Additional Impressions: Fever Fever type: unspecified Qualified Codes: R50.9 - Fever, unspecified Sepsis Sepsis type: sepsis due to unspecified organism Qualified Codes: A41.9 - Sepsis, unspecified organism Diarrhea Diarrhea type: infectious Qualified Codes: A09 - Infectious gastroenteritis and colitis, unspecified
--- NOTE | 2017-03-13 11:48 | DIAGNOSTIC IMAGING REPORT ---
CT ANGIOGRAPHY OF THE CHEST, PULMONARY EMBOLUS PROTOCOL CLINICAL HISTORY: Left upper quadrant pain, cough and fever. Recent surgery. COMPARISON STUDY: Chest radiograph March 03, 2017. TECHNIQUE: Following IV administration of 119 mL of Optiray-320, helical axial images of the chest were obtained utilizing the pulmonary embolus protocol. Maximal intensity projections and sagittal and coronal reformats were viewed on an independent 3D workstation. IV contrast was administered without complication. A dose lowering technique was utilized adhering to the principles of ALARA. CT DOSE: 4687.71 mGy.cm FINDINGS: No central or lobar pulmonary emboli are identified. Segmental and subsegmental pulmonary arteries are suboptimally assessed on this exam. Heart is moderately enlarged. There is moderate coronary artery calcification. The main pulmonary artery is dilated, measuring 4.2 cm. There are trace bilateral pleural effusions with associated atelectasis. There is no consolidation to suggest pneumonia. A few indeterminate pulmonary nodules are noted, including a 5 mm left lower lobe nodule shown image 189 of 316, a 5 mm left lower lobe nodule shown image 125 and a 5 mm right middle lobe nodule shown on image 150. Note is made of a heavily calcified 2.1 x 2.1 cm abnormality either arising from or adjacent to the mid thoracic esophagus. There are several old left-sided rib fractures. In addition, there are several acute to subacute nondisplaced anterior left-sided rib fractures. There is no pneumothorax. In addition, a few acute to subacute nondisplaced anterior right-sided rib fractures are noted. IMPRESSION: 1. No central or lobar pulmonary emboli. Segmental and subsegmental pulmonary arteries suboptimally assessed. 2. Trace bilateral pleural effusions with associated atelectasis. 3. Numerous acute to subacute nondisplaced bilateral anterior rib fractures. No pneumothorax. 4. Moderate cardiomegaly. Dilatation of the main pulmonary artery which raises the possibility of pulmonary arterial hypertension. 5. 2.1 x 2.1 cm heavily calcified abnormality adjacent to or arising from the mid thoracic esophagus. This could reflect a calcified thoracic lymph node or calcified esophageal lesion such as a leiomyoma. This can be assessed on a follow-up chest CT in 6 months. 6. Several indeterminate but low suspicion pulmonary nodules. A follow-up chest CT in 6 months is recommended to ensure stability. Electronically signed by: Usama Ruffin M.D. 03/13/2017 11:47 AM Dictated Date/Time: 03/13/2017 11:29 AM
--- NOTE | 2017-03-13 11:50 | DIAGNOSTIC IMAGING REPORT ---
CT SCAN OF THE ABDOMEN AND PELVIS WITH IV CONTRAST CLINICAL HISTORY: Left lower quadrant abdominal pain. Diarrhea. COMPARISON STUDY: No priors. TECHNIQUE: Following the IV administration of 119 cc of Optiray 320, CT scan of the abdomen and pelvis is performed from the lung bases to the proximal femora. Images are reviewed in the axial, sagittal, and coronal planes. IV contrast was administered without complication. A dose lowering technique was utilized adhering to the principles of ALARA. The examination is degraded by motion artifact an large body habitus. The patient was scanned twice in an effort to improve image quality. FINDINGS: Lung bases: The heart is enlarged and without pericardial effusion. There is lipomatous hypertrophy of the interatrial septum. The coronary arteries are densely calcified. There are trace pleural effusions with dependent atelectasis. Liver: The contrast-enhanced liver is enlarged, measuring 24.8 cm in length. The liver demonstrates diffusely diminished attenuation consistent with hepatic steatosis. Fatty sparing is seen adjacent to gallbladder fossa. There is no intrahepatic biliary ductal dilatation. The hepatic veins and portal veins are patent. Gallbladder: Unremarkable. Spleen: The spleen is enlarged measuring 15.3 cm and length. Pancreas: Moderately atrophic and grossly unremarkable. Adrenal glands: Unremarkable. Kidneys: The contrast enhanced kidneys are atrophic and without hydronephrosis. The kidneys enhance symmetrically. Abdominal vasculature: The abdominal aorta is normal in course and caliber noting advanced atherosclerotic calcification. Bowel: There is moderate diverticulosis of left colon. There is a long segment of wall thickening with pericolonic inflammation involving the distal descending and proximal sigmoid colon which extends at least 17 cm. No abscess is seen. No bowel obstruction is identified. The appendix is well-visualized and normal. Peritoneum: There is no intraperitoneal free air or abdominal ascites. Small foci of gas are present within the abdominal pannus, likely related to subcutaneous injections. Lymphadenopathy: None. Pelvic viscera: Evaluation of the pelvis is degraded by streak artifact from a left hip arthroplasty. The the bladder is decompressed and not well dilated. Foci of intraluminal gas are noted. The prostate gland is mildly heterogeneous. Skeletal structures: The skeletal structures are osteopenic. A left hip arthroplasty is in place. There is moderate lumbosacral spondylosis with postoperative change from L2-L3 spinal fusion. There is a right-sided pars defect at L5. No lytic or blastic lesions are seen. There are healed left posterior rib fractures. IMPRESSION: 1. There is moderate diverticulosis of the left colon. There is a long segment (at least 17 cm) of wall thickening/edema and pericolonic inflammation involving the distal descending and proximal sigmoid colon. Although there is significant diverticular disease in this region, the length of involvement favors a nonspecific colitis. Diverticulitis is considered less likely and clinical correlation will be required. 2. No intraperitoneal free air is identified and there is no evidence of abscess. 3. Cardiomegaly and trace pleural effusions. 4. Hepatomegaly and severe hepatic steatosis. 5. Splenomegaly. 6. Additional findings as above. Electronically signed by: Anam Layton M.D. 03/13/2017 11:49 AM Dictated Date/Time: 03/13/2017 11:39 AM
[2017-03-13] MEDS ORDERED: METRONIDAZOLE 250 MG TAB PO STA (11:55)
[2017-03-13] MEDS ORDERED: MAGNESIUM SULFATE 1GM / D5W 1 GM IV STA (13:02)
[2017-03-13] MEDS ORDERED: DEXTROSE 50% 50 ML SYR IV PRN (13:45)
[2017-03-13] MEDS ORDERED: GLUCAGON FOR INJ 1 MG VIAL SQ PRN (13:45)
[2017-03-13] MEDS ORDERED: GLUCOSE 10 TABS/TUBE PO PRN (13:45)
[2017-03-13] MEDS ORDERED: GLUCOSE 40% GEL 15 GM TUBE PO PRN (13:45)
[2017-03-13] MEDS ORDERED: CHLORDIAZEPOXIDE 25 MG CAP PO PRN (14:00)
[2017-03-13] MEDS ORDERED: ACETAMINOPHEN 325 MG TAB PO PRN (14:30)
[2017-03-13] MEDS: MAGNESIUM SULFATE 1GM / D5W 1 GM in PREMIXED IN D5W 100 ML IV SCH ×3 (14:59→18:03)
[2017-03-13] MEDS ORDERED: INSULIN ASPART 100 UNITS/ML 3 ML PEN SC SCH (16:00)
[2017-03-13 16:26] VITALS: BP 145/77; PULSE 69; TEMP 36.8; O2SAT 99; Ht 185.4 cm; Wt 152.2 kg
[2017-03-13] MEDS: SODIUM CHLORIDE 0.9% 1000ML 1,000 ML IV SCH (16:50)
--- NOTE | 2017-03-13 16:52 | History and Physical ---
History & Physical Date & Time of Service: Mar 13, 2017 at 14:03 Chief Complaint: Gi Assessment/Fever Primary Care Physician: Matilde Mauriico D.O. History of Present Illness Source: patient, family, clinic records, hospital records Pt is 66 y/o M with PMH alcoholism, HTN, hyperlipidemia, BPH, DM insulin dependent, recent L hip arthroplasty presented to ER from [facility] with c/o diarrhea x 1 day. On 03/01/17 had elective L hip arthroplasty and had cardiac arrest intraoperatively, sent to ICU and stabilized went back to OR for completed hip arthroplasty by Dr Dee. Pt had ETOH withdrawal. Was discharged 03/08/17 to [facility]. Pt seen in ER yesterday after fall with negative hip x-ray for fracture. Pt states yesterday started having watery diarrhea and has had approx 20 episodes yesterday and multiple episodes today. Last night reported fever 101F. C/O aching pain across lower abdomen. Pt states having pain to L hip since surgery and since cardiac arrest having pain to anterior and lateral chest with movement. Reports some swelling to bilateral lower legs, doesn't think it is any worse. Reports hasn't had any ETOH since hospital d/c 03/08/17. He has been taking Ativan and Librium prn. Denies diaphoresis, N/V, hematochezia, GEORGE, dizziness, syncope, vision changes, neck pain, SOB, orthopnea, palpitations, cough, sore throat, choking, otalgia, rhinorrhea, paresthesias, weakness, extremity weakness, rashes, urinary symptoms. Today ER vitals: Temp: 38.6C, BP: 104/52, P: 82, R: 20, O2 sat: 93% on RA. WBC: 15, H/H 9.1/27.8 (previous on 03/05/17 hgb 8.8 post op). Na: 134, ma.5, negative troponin. CT abd/pelvis: diverticulosis left colon, wall thickening/ edema & pericolonic inflammation distal descending and proximal sigmoid colon. Although there is significant diverticular disease in this region, the length of involvement favors a nonspecific colitis. CT chest: No PE. trace bilateral pleural effusions with associated atelectasis. Numerous acute to subacute nondisplaced bilateral anterior rib fractures. No pneumothorax. 2.1 x 2.1 cm heavily calcified abnormality adjacent to or arising from the mid thoracic esophagus. Several indeterminate but low suspicion pulmonary nodules. A follow- up chest CT in 6 months is recommended. EKG: NSR, rate 79, no ST elevation noted. Was given flagyl 500mg po and NSS. Past Medical/Surgical History Medical Problems: (1) DM type 2 (diabetes mellitus, type 2) Status: Chronic (2) Dyslipidemia Status: Chronic (3) History of arthroplasty of left hip Permanent Comment: 03/01/17. hx cardiac arrest intraoperatively Status: Resolved (4) HTN (hypertension) Status: Chronic (5) Lumbar degenerative disc disease Status: Chronic (6) Osteoarthritis of left hip Status: Chronic Surgical Problems: (1) History of arthroplasty of left hip Permanent Comment: 03/01/17 Status: Resolved Social History Problems: (1) Alcohol abuse Status: Chronic Family History Asthma BROTHER Diabetes mellitus MOTHER BROTHER Stroke FATHER ( age 73) BROTHER Social History Smoking Status: Current Every Day Smoker Smokeless Tobacco Use: No Alcohol Use: heavy Drug Use: none Marital Status: Occupational Status: employed Multi-Drug Resistant Organisms History of MDRO: No Allergies Coded Allergies: No Known Allergies (Verified , 03/13/17) Home Medications Scheduled Aspirin (Aspirin), 325 MG PO BID Atorvastatin (Lipitor), 10 MG PO HS Enoxaparin (Lovenox), 30 MG SQ BID Folic Acid (Folvite), 1 TAB PO QAM Insulin Aspart (Novolog Penfill), 1 DOSE SQ ACHS Insulin Glargine (Lantus), 16 UNITS SC HS Metoprolol Succ (Toprol Xl) (Toprol-Xl), 50 MG PO QAM Nicotine (Eq Nicotine), 1 PATCH TD DAILY Pantoprazole (Pantoprazole Sodium), 40 MG PO QAM Pregabalin (Lyrica), 25 MG PO TID Sennosides-Docusate Sodium (Senokot S), 1 TAB PO DAILY Sitagliptin (Januvia), 100 MG PO DAILY Tamsulosin Hcl (Flomax), 0.4 MG PO QAM Thiamine Hcl (Vitamin B-1), 100 MG PO QPM Scheduled PRN Acetaminophen (Tylenol), 500 MG PO Q4 PRN for Pain Bisacodyl (Bisacodyl), 1 SUPP NE DAILY PRN for Constipation Chlordiazepoxide (Chlordiazepoxide HCl), 50 MG PO Q6 PRN for Anxiety/Agitation Dextrose (Diabetic Use) (Glucose), 1 APPLN TOP DAILY PRN for HYPOGLYCEMIA Docusate Sodium (Docusate Sodium), 100 MG PO BID PRN for Constipation Glucagon (Glucagon Emergency Kit), 1 MG SC UD PRN for HYPOGLYCEMIA Lorazepam (Ativan), 1 MG PO Q4 PRN for Anxiety Magnesium Hydroxide (Milk Of Magnesia), 30 ML PO DAILY PRN for Constipation Oxycodone/Acetaminophen 5MG/325MG (Percocet 5MG/325MG), 1 TAB PO Q4H PRN for Pain Polyethylene (Miralax), 17 GM PO DAILY PRN for Constipation Sodium Phosphates (Fleet Enema Six Pack), 1 DOSE NE DAILY PRN for Constipation Review of Systems Constitutional: No weight loss Eyes: + worsening of vision, + diplopia, + problem reported, No eye pain, No redness, No discharge ENT: No unusual epistaxis, No trouble swallowing Respiratory: No wheezing, No dyspnea at rest, No hemoptysis Cardiovascular: No PND Abdomen: + pain (see HPI) Musculoskeletal: + problem reported (see HPI) Genitourinary - Male: No hematuria, No dysuria, No urinary frequency, No urinary urgency Neurologic: No numbness/tingling, No vertigo Psychiatric: No depression symptoms, No anxiety Endocrine: No excessive thirst Hematologic / Lymphatic: No night sweats Integumentary: No color change Physical Exam Vital Signs Date Time Temp Pulse Resp B/P (MAP) Pulse Ox O2 Delivery O2 Flow Rate FiO2 03/13/17 13:51 73 20 98/54 97 Nasal Cannula 2.0 03/13/17 13:10 70 24 106/53 95 Room Air 03/13/17 13:00 75 20 106/53 93 Nasal Cannula 2.0 03/13/17 12:29 72 20 100/57 96 Nasal Cannula 2.0 03/13/17 11:22 37.2 77 20 92/57 96 Nasal Cannula 2.0 99/58 03/13/17 10:24 78 22 112/65 97 Nasal Cannula 2.0 03/13/17 09:30 79 03/13/17 09:28 38.6 82 20 104/54 93 Room Air General Appearance: no apparent distress, + obese Head: normocephalic, atraumatic Eyes: normal inspection, PERRL, EOMI, sclerae normal ENT: hearing grossly normal, pharynx normal, + pertinent finding (mildly dry mucous membranes) Neck: supple, no JVD, trachea midline Respiratory/Chest: lungs clear, normal breath sounds, no respiratory distress, no accessory muscle use, + pertinent finding (tender to palpation entire anterior chest and bilateral ribs) Cardiovascular: regular rate, rhythm Abdomen/GI: normal bowel sounds, soft, + tenderness (LLQ, RLQ without guarding or rebound) Extremities/Musculoskelatal: no calf tenderness, + pedal edema (1+ bilaterally) , + pertinent finding (left hip with dressing in place. limited ROM left hip secondary to discomfort. pedal pushes intact bilaterally. distal pulses intact bilaterally, sensation to light touch intact bilaterally, brisk capillary refill ) Neurologic/Psych: alert, normal mood/affect, oriented x 3 Skin: warm/dry, + pertinent finding (+ecchymosis to bilateral arms) Diagnostics Laboratory Results Last 24 Hours Test 03/13/17 09:50 03/13/17 10:19 03/13/17 10:25 03/13/17 10:50 White Blood Count 15.00 K/uL Red Blood Count 2.83 M/uL Hemoglobin 9.1 g/dL Hematocrit 27.8 % Mean Corpuscular Volume 98.2 fL Mean Corpuscular Hemoglobin 32.2 pg Mean Corpuscular Hemoglobin Concent 32.7 g/dl Platelet Count 363 K/uL Mean Platelet Volume 8.9 fL Neutrophils (%) (Auto) 88.7 % Lymphocytes (%) (Auto) 3.9 % Monocytes (%) (Auto) 6.3 % Eosinophils (%) (Auto) 0.3 % Basophils (%) (Auto) 0.2 % Neutrophils # (Auto) 13.30 K/uL Lymphocytes # (Auto) 0.58 K/uL Monocytes # (Auto) 0.95 K/uL Eosinophils # (Auto) 0.05 K/uL Basophils # (Auto) 0.03 K/uL RDW Standard Deviation 49.4 fL RDW Coefficient of Variation 13.8 % Immature Granulocyte % (Auto) 0.6 % Immature Granulocyte # (Auto) 0.09 K/uL Prothrombin Time 12.0 SECONDS Prothromb Time International Ratio 1.1 Sodium Level 134 mmol/L Potassium Level 3.9 mmol/L Chloride Level 99 mmol/L Carbon Dioxide Level 26 mmol/L Anion Gap 9.0 mmol/L Blood Urea Nitrogen 17 mg/dl Creatinine 1.49 mg/dl Est Creatinine Clear Calc Drug Dose 75.8 ml/min Estimated GFR () 56.7 Estimated GFR (Non- 48.9 BUN/Creatinine Ratio 11.5 Random Glucose 258 mg/dl Calcium Level 9.4 mg/dl Magnesium Level 1.5 mg/dl Total Bilirubin 0.4 mg/dl Aspartate Amino Transf (AST/SGOT) 21 U/L Alanine Aminotransferase (ALT/SGPT) 23 U/L Alkaline Phosphatase 121 U/L Troponin I < 0.015 ng/ml Total Protein 6.0 gm/dl Albumin 2.1 gm/dl Globulin 3.9 gm/dl Albumin/Globulin Ratio 0.5 Lipase 417 U/L Thyroid Stimulating Hormone (TSH) 2.220 uIu/ml Bedside Lactic Acid Venous 0.77 mmol/L Influenza Type A Antigen Neg for Influ A Influenza Type B Antigen Neg for Influ B Urine Color YELLOW Urine Appearance CLEAR Urine pH 5.5 Urine Specific [place] 1.019 Urine Protein 2+ Urine Glucose (UA) TRACE Urine Ketones NEG Urine Occult Blood NEG Urine Nitrite NEG Urine Bilirubin NEG Urine Urobilinogen NEG Urine Leukocyte Esterase NEG Urine WBC (Auto) 0 /hpf Urine RBC (Auto) 0-4 /hpf Urine Hyaline Casts (Auto) 0 /lpf Urine Epithelial Cells (Auto) 5-10 /lpf Urine Bacteria (Auto) NEG Diagnostic Radiology CT CHEST IMPRESSION: 1. No central or lobar pulmonary emboli. Segmental and subsegmental pulmonary arteries suboptimally assessed. 2. Trace bilateral pleural effusions with associated atelectasis. 3. Numerous acute to subacute nondisplaced bilateral anterior rib fractures. No pneumothorax. 4. Moderate cardiomegaly. Dilatation of the main pulmonary artery which raises the possibility of pulmonary arterial hypertension. 5. 2.1 x 2.1 cm heavily calcified abnormality adjacent to or arising from the mid thoracic esophagus. This could reflect a calcified thoracic lymph node or calcified esophageal lesion such as a leiomyoma. This can be assessed on a follow-up chest CT in 6 months. 6. Several indeterminate but low suspicion pulmonary nodules. A follow-up chest CT in 6 months is recommended to ensure stability. CT ABD/PELVIS: IMPRESSION: 1. There is moderate diverticulosis of the left colon. There is a long segment (at least 17 cm) of wall thickening/edema and pericolonic inflammation involving the distal descending and proximal sigmoid colon. Although there is significant diverticular disease in this region, the length of involvement favors a nonspecific colitis. Diverticulitis is considered less likely and clinical correlation will be required. 2. No intraperitoneal free air is identified and there is no evidence of abscess. 3. Cardiomegaly and trace pleural effusions. 4. Hepatomegaly and severe hepatic steatosis. 5. Splenomegaly. 6. Additional findings as above. EKG EKG: NSR, rate 79, no ST elevations noted Impression Assessment and Plan COLITIS: Hx L hip arthroplasty 03/01/17 with cardiac arrest intraoperatively, taken back to OR for completed repair, hx ETOH withdrawal and d/c [facility] on . Pt with onset >20 episodes watery diarrhea since yesterday with fever 38.6C , lower abdominal pain. WBC: 15.0. negative POC lactate. Negative troponin, EKG : NSR no ST elevation. CT ABD/PELVIS: mod diverticulosis of the left colon, long segment of wall thickening/edema and pericolonic inflammation involving the distal descending and proximal sigmoid colon, favors nonspecific colitis. No intraperitoneal free air is identified and there is no evidence of abscess. BP: 104/52, P: 82, R: 20. suspect c-diff with recent hospitalization -continue to monitor vitals -pending stool studies -c-diff negative. pt initially started flagyl IV and vancomycin po. Will stop vancomycin po. -flagyl IV -NPO today, consider changing to clear fluids as pt improving -NSS 100ml/hr -GI consult -cbc, prp in am HYPOMAGNESIA magnesium: 1.5 -magnesium 4gm IV -repeat magnesium lab in am RIB PAIN/RIB FRACTURE CT scan: No PE. Trace bilateral pleural effusions with associated atelectasis. Numerous acute to subacute nondisplaced bilateral anterior rib fractures. No pneumothorax. Rib fractures may be secondary CPR last admission, or fall yesterday -continue Percocet prn pain -Dilaudid 0.5mg Q8hrs prn breakthrough pain -incentive spirometry -repeat cxr in am S/P L HIP ARTHROPLASTY: Pt with dressing in place -continue Percocet prn pain -consult ortho PULMONARY NODULE: CT Chest: 5. 2.1 x 2.1 cm heavily calcified abnormality adjacent to or arising from the mid thoracic esophagus. This could reflect a calcified thoracic lymph node or calcified esophageal lesion such as a leiomyoma. Several indeterminate but low suspicion pulmonary nodules. -Out pt follow-up chest CT in 6 months is recommended ALCOHOLISM No ETOH use since last hospitalization Continue to monitor for ETOH withdrawal -continue Ativan prn anxiety/agitation -decrease Librium 25mg Q6h prn anxiety/agitation from home dose Librium 50mg. Will consider increase to 50mg if increased symptoms DM, INSULIN DEPENDENT -Hgb A1c: 7.8 on 03/01/17 -NovoLog Sliding scale per protocol -Lantus 8 units BID HTN BPs: low 100's systolic, suspect from dehydration continue to monitor -continue metoprolol, may need to adjust if significant hypotension TOBACCO ABUSE -nicotine patch -smoking cessation discussed BPH -continue Flomax DVT PROPHYLAXIS -lovenox SQ -ASA 325 BID per ortho DISPOSITION -admit tele - Full Code as per discussion with pt -Follows with Dr Mauricio for routine care Pt was seen with Dr Del Toro. See addendum Attending Physician Dr. Del Toro, addendum I have seen and examined the patient with MACKENZIE Ny and agree with the assessment and plan as above and would like to comment: 66 year old M who was discharged from [facility] on 03/08/17 after hospitalization significant for cardiac arrest with emergency cardioversion when patient was in surgery for left hip arthroplasty and subsequent intubation with subsequent hospital course also treating for prevention of alcohol withdrawal, patient discharged to [facility], seen again in the ED on 03/12/17 after presenting with a fall and also the wound vac from the left hip surgery was removed, patient seen in ED on 03/13/17 after complaints of fever and diarrhea and admitted to internal medicine hospitalist service primarily for treatment of colitis. As per CT abdomen interpretation There is moderate diverticulosis of the left colon. There is a long segment (at least 17 cm) of wall thickening/edema and pericolonic inflammation involving the distal descending and proximal sigmoid colon. Although there is significant diverticular disease in this region, the length of involvement favors a nonspecific colitis. Diverticulitis is considered less likely and clinical correlation will be required ED physician gave Flaygl 500 mg PO and ordered stool studies for C.diff and stool culture and blood cultures Admitting medical team have ordered 500 mg Flagyl IV Q8 hours for possible C.diff colitis vs other sources of anaerobic coverage. Also ordered PO Vancomycin 125 mg PO QID in addition for possible C.diff coverage. However, C.diff test negative and will stop PO Vancomycin Gastroenterology service consulted for further recommendations vs antibiotic de-escalation Bowel rest, keep NPO except meds for now, advance to clear liquid diet when abdominal pain and appetite improves Supportive care for diarrhea including IV hydration. There was history of Lasix use in the past, but patient is no longer on this medication. There is some bilateral lower extremity edema. But no evidence of pulmonary embolism and echocardiogram recently in February with EF of 65%. Would hold Lasix for now. Add Lasix if worsening fluid overload. Cut down home 16 units Lantus to half the dose as inpatient while NPO and titrate insulin as needed based on fingerstick glucose Pain medications for abdominal pain but avoid excessive narcotics to avoid sedation. Patient is on Librium 50 mg and ativan prn as outpatient to prevent ETOH withdrawal. Will cut the Librium to 25 mg and continue prn ativan as patient may require more pain medications and to avoid sedation. Resume original home dose Librium is signs of delirium tremens Serum magnesium on admission 1.5, Ordered 4 grams of magnesium IV. Trend electrolytes Cardiac telemetry for now because of history of cardiac arrest Level of Care Telemetry Resuscitation Status FULL RESUSCITATION VTE Prophylaxis VTE Risk Assessment Done? Y/N: Yes Risk Level: Moderate Given or contraindicated: Enoxaparin (Lovenox)SQ Additional Copies To Matilde Mauricio D.O.
[2017-03-13] MEDS ORDERED: VANCOMYCIN HCL 125 MG/2.5ML SOLN PO SCH (17:00)
[2017-03-13] MEDS: PREGABALIN 25MG CAP PO SCH ×2 (18:02→21:00)
[2017-03-13] MEDS: NICOTINE 21 MG/24 HR TDSY TD SCH (18:30)
[2017-03-13] MEDS ORDERED: NURSING VERBAL MED ORDER ONE (19:30)
[2017-03-13 19:41] VITALS: BP 127/70; PULSE 66; TEMP 37; O2SAT 92
[2017-03-13] MEDS: METRONIDAZOLE / NSS 500 MG in PREMIXED NSS 100 ML IV SCH (19:48)
[2017-03-13] MEDS: OXYCODONE/ACETAMINOPHEN 5-325 TAB PO PRN (19:53)
[2017-03-13] MEDS: LORAZEPAM 1 MG TAB PO PRN (19:54)
[2017-03-13] MEDS: CHLORDIAZEPOXIDE 25 MG CAP PO PRN (20:37)
[2017-03-13] MEDS: ATORVASTATIN 10 MG TAB PO SCH (20:38)
[2017-03-13] MEDS: THIAMINE HCL 100 MG TAB PO SCH (20:39)
[2017-03-13] MEDS: ENOXAPARIN 30 MG/0.3 ML SYR SC SCH (20:40)
[2017-03-13] MEDS ORDERED: INSULIN GLARGINE SOLOSTAR 100 UNITS/ML 3 ML PEN SC SCH (21:00)
[2017-03-13] MEDS: INSULIN GLARGINE SOLOSTAR 100 UNITS/ML 3 ML PEN SC SCH (22:12)
[2017-03-13] MEDS: HYDROmorphone INJ 0.5 MG/0.5 ML SYR IV PRN (22:22)
[2017-03-13] MEDS: ASPIRIN 325 MG ECTAB PO SCH (22:28)
[2017-03-13 23:49] VITALS: BP 140/71; PULSE 70; TEMP 36.9; O2SAT 93
[2017-03-14] VITALS (7 sets, daily range): BP systolic 99–141; BP diastolic 60–90; PULSE 60–89; TEMP 36.6–37.1; O2SAT 90–97
[2017-03-14] MEDS ORDERED: NURSING VERBAL MED ORDER ONE ×2 (01:00→11:15)
[2017-03-14] MEDS ORDERED: CHLORASEPTIC 1.4% SOLN 180 ML BTL MT PRN (01:30)
[2017-03-14] MEDS: METRONIDAZOLE / NSS 500 MG in PREMIXED NSS 100 ML IV SCH ×3 (03:57→19:37)
[2017-03-14] MEDS: SODIUM CHLORIDE 0.9% 1000ML 1,000 ML IV SCH (03:58)
[2017-03-14] MEDS: LORAZEPAM 1 MG TAB PO PRN ×3 (05:36→22:31)
[2017-03-14] MEDS: OXYCODONE/ACETAMINOPHEN 5-325 TAB PO PRN ×4 (05:37→22:31)
[2017-03-14] MEDS: INSULIN ASPART 100 UNITS/ML 3 ML PEN SC SCH ×5 (06:41→19:48)
[2017-03-14 06:54] LABS: BASO % 0.3 %; BASO ABS # 0.03 K/uL (0-0.2); EOS % 2.5 %; HEMATOCRIT 24.9 % (42-52); IG% 0.6 %; LYMPH % 7.9 %; LYMPH ABS # 0.77 K/uL (1.2-3.4); MEAN CORPUSCULAR HEMOGLOBIN 31.7 pg (25-34); MEAN CORPUSCULAR HGB CONC 31.7 g/dl (32-36); MEAN PLATELET VOLUME 8.9 fL (7.4-10.4); MONO % 9.1 %; NEUT % 79.6 %; PLATELET COUNT 309 K/uL (130-400); RED BLOOD COUNT 2.49 M/uL (4.7-6.1); WHITE BLOOD COUNT 9.73 K/uL (4.8-10.8)
[2017-03-14 07:30] LABS: BUN/CREATININE RATIO 12.4 (10-20); CALCIUM 8.4 mg/dl (8.5-10.1); CREATININE 1.26 mg/dl (0.60-1.40); MAGNESIUM 1.8 mg/dl (1.8-2.4); POTASSIUM 4.1 mmol/L (3.5-5.1)
[2017-03-14] MEDS: PANTOprazole SOD 40 MG TAB PO SCH (07:40)
[2017-03-14] MEDS: ENOXAPARIN 30 MG/0.3 ML SYR SC SCH ×2 (07:41→19:36)
[2017-03-14] MEDS: ASPIRIN 325 MG ECTAB PO SCH (07:41)
[2017-03-14] MEDS: TAMSULOSIN HCL 0.4 MG CAP PO SCH (07:46)
[2017-03-14] MEDS: NICOTINE 21 MG/24 HR TDSY TD SCH (07:47)
[2017-03-14] MEDS: INSULIN GLARGINE SOLOSTAR 100 UNITS/ML 3 ML PEN SC SCH ×2 (07:49→19:43)
[2017-03-14] MEDS: PREGABALIN 25MG CAP PO SCH ×3 (07:50→19:44)
[2017-03-14] MEDS: HYDROmorphone INJ 0.5 MG/0.5 ML SYR IV PRN ×2 (07:51→16:14)
[2017-03-14 07:54] LABS: ANISOCYTOSIS PRESENT; COMPLETE YES
--- NOTE | 2017-03-14 08:36 | DIAGNOSTIC IMAGING REPORT ---
CHEST 2 VIEWS ROUTINE CLINICAL HISTORY: Chest wall pain. Rib fractures. COMPARISON STUDY: 03/03/2017 FINDINGS: The heart is enlarged. There is aortic tortuosity/ectasia. No pneumothorax is visualized. There is no focal pulmonary consolidation. There are no pleural effusions.[ The bilateral rib fractures described on the recent CT scan, are not easily identified. IMPRESSION: Mild cardiomegaly. No acute findings. Electronically signed by: Ryder Gunderson M.D. 03/14/2017 8:35 AM Dictated Date/Time: 03/14/2017 8:33 AM
[2017-03-14] MEDS ORDERED: CHLORDIAZEPOXIDE 25 MG CAP PO SCH (09:00)
--- NOTE | 2017-03-14 09:29 | Clinical Documentation Query ---
QUERY 1 OF [address] JAIN, In your clinical opinion is this patient being managed for: ( ) Sepsis, POA ( x ) Not Agree ( ) Other explanation of clinical findings (Please Explain) ( ) Unable to determine (Please Define) ( ) Need to Discuss The medical record reflects the following clinical findings, treatment, and risk factors. Clinical Indicators: 66 yo male presenting with persistent fever. T 38.6, BP 104/54, WBC 15 Treatment: 3L NSS bolus then continued fluids, IV flagyl, pending blood and stool cx. Risk Factors:colitis, DM, recent hospitalization QUERY 2 OF 3 In your clinical opinion is this patient being managed for: ( x) Suspected Infectious colitis ( ) Not Agree ( ) Other explanation of clinical findings (Please Explain) ( ) Unable to determine (Please Define) ( ) Need to Discuss The medical record reflects the following clinical findings, treatment, and risk factors. Clinical Indicators: fever of 38.6, decreased appetite, CT scan with long segment of wall thickening/edema and pericolonic inflammation involving distal descending and proximal sigmoid colon which favors nonspecific colitis, multiple watery diarrheal stools (reportedly approx 20 episodes) Treatment: 3L NSS bolus, IV flagyl, GI consult, NPO, blood and stool cx pending Risk Factors: DM, recent hospitalization QUERY 3 OF 3 In your clinical opinion is this patient being managed for: ( x) Morbid obesity with BMI 43.3 ( ) Not Agree ( ) Other explanation of clinical findings (Please Explain) ( ) Unable to determine (Please Define) ( ) Need to Discuss BMI: A significantly high (>40) or significantly low (<19) BMI will impact the severity of illness and risk of mortality of your patient. However, the physician must document a correlating diagnosis in the medical record. Please clarify and document your clinical opinion in the progress notes and discharge summary. Terms such as "probable", "suspected", "likely", "questionable", "possible", or "still to be ruled out" are acceptable. IF IN AGREEMENT, YOU MUST DOCUMENT ABOVE DIAGNOSTIC STATEMENT IN DAILY PROGRESS NOTES AND DISCHARGE SUMMARY. This document is not part of the patient's record. Thank You, Indira Ferrari, RN [phone]
--- NOTE | 2017-03-14 10:04 | Gastrointestinal Consultation ---
Gastrointestinal Consultation Date of Consultation: Mar 14, 2017 Attending Physician: Dr. Lang Consulting Physician: Dr. Isaac Gurrola Reason for Consultation: Diarrhea with colitis History of Present Illness Patient is a 66 year old male with a hx of HTN, HLD, DM, and BPH. He had recent hip surgery and had a cardiac arrest intraoperatively. He was admitted yesterday with a fever and significant diarrhea. He states that his symptoms started on Monday, with multiple bouts of non-bloody, liquid stool, upwards of 20 times daily. Stool for Cdiff tested negative. Culture remains pending. His bowels have slowed and today he reports only 2 episodes of loose stool. He reports additional LUQ abdominal pain that is dull in nature, becoming sharp with deep inspiration and with palpation. He had a recent fall out of his wheelchair, however, and does have rib fractures in that area. He denies any upper GI symptoms. CT scan results listed below. Non-specific colitis. Last colonoscopy was about 7-8 years ago by his admission and was normal. I can find no record of this. He is currently on IV Flagyl. CT a/p: IMPRESSION: 1. There is moderate diverticulosis of the left colon. There is a long segment (at least 17 cm) of wall thickening/edema and pericolonic inflammation involving the distal descending and proximal sigmoid colon. Although there is significant diverticular disease in this region, the length of involvement favors a nonspecific colitis. Diverticulitis is considered less likely and clinical correlation will be required. 2. No intraperitoneal free air is identified and there is no evidence of abscess. 3. Cardiomegaly and trace pleural effusions. 4. Hepatomegaly and severe hepatic steatosis. 5. Splenomegaly. 6. Additional findings as above. Past Medical/Surgical History Medical Problems: (1) Colitis Status: Acute (2) Diarrhea Status: Acute (3) Fall Status: Acute (4) Fall Status: Acute (5) Fever Status: Acute (6) Sepsis Status: Acute (7) SIRS (systemic inflammatory response syndrome) Status: Acute Past Medical History: DM, HTN, HLD, BPH, Hx heavy ETOH use Past Surgical History: Carpal tunnel release, Spinal surgery, Knee surgery, Hip surgery Family History Asthma BROTHER Diabetes mellitus MOTHER BROTHER Stroke FATHER ( age 73) BROTHER Social History Smoking Status: Current Every Day Smoker Alcohol Use: heavy Drug Use: none Marital Status: Housing Status: lives with family, other Occupation Status: employed Allergies Coded Allergies: No Known Allergies (Verified , 03/13/17) Current Medications Home Meds and Scripts Medications Dose Route/Sig Max Daily Dose Days Date Category Dose Instructions Aspirin 325 Mg Tab 325 Mg PO BID 03/13/17 Reported Ativan (Lorazepam) 1 Mg Tab 1 Mg PO Q4 PRN 03/13/17 Reported Tylenol (Acetaminophen) 500 Mg Tab 500 Mg PO Q4 PRN 03/13/17 Reported Glucagon Emergency Kit (Glucagon) 1 Mg Kit 1 Mg SC UD PRN 03/13/17 Reported Glucose (Dextrose (Diabetic Use)) 40 % Gel 1 Appln TOP DAILY PRN 03/13/17 Reported Fleet Enema Six Pack (Sodium Phosphates) 1 Brittany Brittany 1 Dose TX DAILY PRN 03/13/17 Reported Bisacodyl 10 Mg Sup 1 Supp TX DAILY PRN 03/13/17 Reported Milk Of Magnesia (Magnesium Hydroxide) 30 Ml Susp 30 Ml PO DAILY PRN 03/13/17 Reported Vitamin B-1 (Thiamine HCl) 100 Mg Tab 100 Mg PO QPM 03/13/17 Reported Januvia (Sitagliptin) 50 Mg Tab 100 Mg PO DAILY 03/13/17 Reported TWO 50 MG TABLETS Docusate Sodium 100 Mg Tab 100 Mg PO BID PRN 03/12/17 Reported Senokot S (Sennosides-Docusate Sodium) 1 Tab Tab 1 Tab PO DAILY 03/12/17 Reported Lovenox (Enoxaparin Sodium) 30 Mg/0.3 Ml Inj 30 Mg SQ BID 03/12/17 Reported Novolog Penfill (Insulin Aspart) 100 Unit/Ml Inj 1 Dose SQ ACHS 03/12/17 Reported PER SLIDING SCALE: LESS THAN 70=HYPOGLYCEMIA PROTOCOL 70-130=0 UNITS 131-180= 2 UNITS 181-240= 4 UNITS 241-300= 6 UNITS 301-350= 8 UNITS 351-400= 10 UNITS GREATER THAN 400= 12 UNITS; CALL Lantus (Insulin Glargine) 100 Unit/Ml Inj 16 Units SC HS 03/12/17 Reported Eq Nicotine (Nicotine) 21 Mg/24 Hr Dis 1 Patch TD DAILY 03/12/17 Reported Miralax (Polyethylene) 17 Gm Pow 17 Gm PO DAILY PRN 03/12/17 Reported Percocet 5MG/325MG (Oxycodone/Acetaminophen) Tab 1 Tab PO Q4H PRN 03/08/17 Rx PAIN Chlordiazepoxide HCl (Chlordiazepoxide) 25 Mg Cap 50 Mg PO Q6 PRN 03/08/17 Rx Pantoprazole Sodium (Pantoprazole) 40 Mg Tab 40 Mg PO QAM 30 03/07/17 Rx Lipitor (Atorvastatin Calcium) 10 Mg Tab 10 Mg PO HS 02/10/17 Reported Folvite (Folic Acid) 1 Mg Tab 1 Tab PO QAM 90 02/10/17 Reported Lyrica (Pregabalin) 25 Mg Cap 25 Mg PO TID 02/10/17 Reported Flomax (Tamsulosin Hcl) 0.4 Mg Cap 0.4 Mg PO QAM 10/06/14 Reported Toprol-Xl (Metoprolol Succinate) 50 Mg Tabcr 50 Mg PO QAM 10/06/14 Reported Review of Systems Constitutional: + fever (Monday night) Eyes: No worsening of vision ENT: + hearing loss, + sore throat Respiratory: + cough, No shortness of breath Cardiac: No chest pain Abdomen: + see HPI Musculoskeletal: + joint pain (hip) Male : No dysuria, No urinary frequency Neuro: No problem reported Psych: No problem reported Heme: No abnormal bleeding/bruising Endo: No excessive thirst, No excessive urination Skin: No rash, No itch Physical Exam Date Time Temp Pulse Resp B/P (MAP) Pulse Ox O2 Delivery O2 Flow Rate FiO2 03/14/17 07:44 36.7 60 16 99/60 (73) 92 Room Air 03/14/17 04:04 36.6 75 20 119/71 (87) 90 Room Air 03/14/17 04:00 Room Air 03/14/17 00:00 Room Air 03/13/17 23:49 36.9 70 19 140/71 (94) 93 03/13/17 19:45 Room Air 03/13/17 19:41 37.0 66 24 127/70 (89) 92 Room Air 03/13/17 16:26 36.8 69 18 145/77 99 Room Air 03/13/17 15:27 70 23 98/52 99 Room Air 03/13/17 14:27 71 18 114/59 99 Room Air 03/13/17 13:51 73 20 98/54 97 Nasal Cannula 2.0 03/13/17 13:10 70 24 106/53 95 Room Air 03/13/17 13:00 75 20 106/53 93 Nasal Cannula 2.0 03/13/17 12:29 72 20 100/57 96 Nasal Cannula 2.0 03/13/17 11:22 37.2 77 20 92/57 96 Nasal Cannula 2.0 99/58 03/13/17 10:24 78 22 112/65 97 Nasal Cannula 2.0 General Appearance: no apparent distress Eyes: normal inspection Neck: supple Respiratory/Chest: lungs clear, normal breath sounds, no respiratory distress, + pertinent finding (chest wall tenderness - left side) Cardiovascular: regular rate, rhythm Abdomen: normal bowel sounds, soft, + tenderness (LUQ) Extremities: + swelling (1+ BLE edema) Neurologic/Psych: alert Skin: normal color, no jaundice, warm/dry, no rash Laboratory Results Last 24 Hours Test 03/13/17 09:50 03/13/17 10:19 03/13/17 10:25 03/13/17 10:50 White Blood Count 15.00 K/uL Red Blood Count 2.83 M/uL Hemoglobin 9.1 g/dL Hematocrit 27.8 % Mean Corpuscular Volume 98.2 fL Mean Corpuscular Hemoglobin 32.2 pg Mean Corpuscular Hemoglobin Concent 32.7 g/dl Platelet Count 363 K/uL Mean Platelet Volume 8.9 fL Neutrophils (%) (Auto) 88.7 % Lymphocytes (%) (Auto) 3.9 % Monocytes (%) (Auto) 6.3 % Eosinophils (%) (Auto) 0.3 % Basophils (%) (Auto) 0.2 % Neutrophils # (Auto) 13.30 K/uL Lymphocytes # (Auto) 0.58 K/uL Monocytes # (Auto) 0.95 K/uL Eosinophils # (Auto) 0.05 K/uL Basophils # (Auto) 0.03 K/uL RDW Standard Deviation 49.4 fL RDW Coefficient of Variation 13.8 % Immature Granulocyte % (Auto) 0.6 % Immature Granulocyte # (Auto) 0.09 K/uL Prothrombin Time 12.0 SECONDS Prothromb Time International Ratio 1.1 Sodium Level 134 mmol/L Potassium Level 3.9 mmol/L Chloride Level 99 mmol/L Carbon Dioxide Level 26 mmol/L Anion Gap 9.0 mmol/L Blood Urea Nitrogen 17 mg/dl Creatinine 1.49 mg/dl Est Creatinine Clear Calc Drug Dose 75.8 ml/min Estimated GFR () 56.7 Estimated GFR (Non- 48.9 BUN/Creatinine Ratio 11.5 Random Glucose 258 mg/dl Calcium Level 9.4 mg/dl Magnesium Level 1.5 mg/dl Total Bilirubin 0.4 mg/dl Aspartate Amino Transf (AST/SGOT) 21 U/L Alanine Aminotransferase (ALT/SGPT) 23 U/L Alkaline Phosphatase 121 U/L Troponin I < 0.015 ng/ml Total Protein 6.0 gm/dl Albumin 2.1 gm/dl Globulin 3.9 gm/dl Albumin/Globulin Ratio 0.5 Lipase 417 U/L Thyroid Stimulating Hormone (TSH) 2.220 uIu/ml Bedside Lactic Acid Venous 0.77 mmol/L Influenza Type A Antigen Neg for Influ A Influenza Type B Antigen Neg for Influ B Urine Color YELLOW Urine Appearance CLEAR Urine pH 5.5 Urine Specific [place] 1.019 Urine Protein 2+ Urine Glucose (UA) TRACE Urine Ketones NEG Urine Occult Blood NEG Urine Nitrite NEG Urine Bilirubin NEG Urine Urobilinogen NEG Urine Leukocyte Esterase NEG Urine WBC (Auto) 0 /hpf Urine RBC (Auto) 0-4 /hpf Urine Hyaline Casts (Auto) 0 /lpf Urine Epithelial Cells (Auto) 5-10 /lpf Urine Bacteria (Auto) NEG Test 03/13/17 17:29 03/13/17 21:18 03/14/17 06:02 03/14/17 06:33 Bedside Glucose 226 mg/dl 241 mg/dl 206 mg/dl White Blood Count 9.73 K/uL Red Blood Count 2.49 M/uL Hemoglobin 7.9 g/dL Hematocrit 24.9 % Mean Corpuscular Volume 100.0 fL Mean Corpuscular Hemoglobin 31.7 pg Mean Corpuscular Hemoglobin Concent 31.7 g/dl Platelet Count 309 K/uL Mean Platelet Volume 8.9 fL Neutrophils (%) (Auto) 79.6 % Lymphocytes (%) (Auto) 7.9 % Monocytes (%) (Auto) 9.1 % Eosinophils (%) (Auto) 2.5 % Basophils (%) (Auto) 0.3 % Neutrophils # (Auto) 7.74 K/uL Lymphocytes # (Auto) 0.77 K/uL Monocytes # (Auto) 0.89 K/uL Eosinophils # (Auto) 0.24 K/uL Basophils # (Auto) 0.03 K/uL RDW Standard Deviation 51.2 fL RDW Coefficient of Variation 13.9 % Immature Granulocyte % (Auto) 0.6 % Immature Granulocyte # (Auto) 0.06 K/uL Anisocytosis PRESENT Sodium Level 140 mmol/L Potassium Level 4.1 mmol/L Chloride Level 105 mmol/L Carbon Dioxide Level 25 mmol/L Anion Gap 10.0 mmol/L Blood Urea Nitrogen 16 mg/dl Creatinine 1.26 mg/dl Est Creatinine Clear Calc Drug Dose 90.1 ml/min Estimated GFR () 69.4 Estimated GFR (Non- 59.9 BUN/Creatinine Ratio 12.4 Random Glucose 181 mg/dl Calcium Level 8.4 mg/dl Magnesium Level 1.8 mg/dl Lipase 273 U/L Impression Patient is a 66 year old male admitted with diarrhea. Stool negative for cdiff, culture pending. CT scan shows non-specific colitis. Plan Continue Flagyl. Consider adding Cipro for more broad spectrum antibiotic coverage. Recent cardiac arrest - would not recommend endoscopic evaluation at this time, but would consider this in about six months. Will d/w attending. He also has noted hepatosplenomegaly with severe steatosis on CT scan. Mildly elevated ALP but LFTs otherwise normal. Recommend OP evaluation for fatty liver with fibroscan to evaluate fibrosis score. Briefly discussed need for diet/ exercise/weight loss and cholesterol control. I performed a history and physical examination of the patient. I have discussed the patient's case, impression and plan with Laurita Mcbride PA-C. Her note reflects my findings and plan. Patient's bowels significantly improved. I recommend an out patient colonoscopy once stable from cardio-pulmonary standpoint. Isaac Gurrola MD
[2017-03-14] MEDS: METOPROLOL SUCC 50MG EXT REL TAB PO SCH (10:28)
[2017-03-14] MEDS: CHLORDIAZEPOXIDE 25 MG CAP PO PRN ×3 (10:28→22:31)
[2017-03-14] MEDS: CIPROFLOXACIN / D5W 400 MG in PREMIXED IN D5W 200 ML IV SCH ×2 (11:38→22:09)
[2017-03-14 12:23] LABS: HEMATOCRIT 26.9 % (42-52)
--- NOTE | 2017-03-14 15:09 | Progress Note ---
Internal Med Progress Note Date of Service: Mar 14, 2017. Provider Documentation: SUBJECTIVE: resting comfortably had couple of bowel movements today cannot tell any blood or black stools no nausea or abdominal pain wants to eat afebrile no chest pain or sob OBJECTIVE: Vital Signs-as noted below Exam: General-alert and oriented. Not in distress ENT-Normal hearing Neck-no neck masses Lungs-CTA b/l no wheezing or crackles Heart-S1 and S2 heard. Regular rate and rhythm, no murmurs Abdomen-Soft Bowel sounds present no tenderness present no distension Extremities-no edema no erythema. recent Left hip surgery site dressing intact Neuro-alert and awake moves extremities Lab data as noted below. ASSESSMENT & PLAN: 66M with Hx L hip arthroplasty 03/01/17 with cardiac arrest intraoperatively, taken back to OR for completed repair, hx ETOH withdrawal and d/c [facility] on 03/08/17. Presents with onset >20 episodes watery diarrhea since one day duration with fever 38.6C, lower abdominal pain. WBC: 15.0. negative POC lactate. CT scan showed non specific colitis NON SPECIFIC COLITIS: Diarrhea On Ct scan' c diff negative on iv fluids on iv flagyl and cipro await stool studies GI on board and appreciate inputs HYPOMAGNESIA replace f/u labs. RIB PAIN/RIB FRACTURE ON CT scan most likely secondary CPR last admission, or fall yesterday pain control incentive spirometry S/P L HIP ARTHROPLASTY: Pt with dressing in place Percocet prn pain consulted ortho Anemia most likely acute blood loss from recent surgery will f/u labs. PULMONARY NODULE: CT Chest: 5. 2.1 x 2.1 cm heavily calcified abnormality adjacent to or arising from the mid thoracic esophagus. Out pt follow-up chest CT in 6 months is recommended ALCOHOLISM No ETOH use since last hospitalization Will monitor for ETOH withdrawal Ativan prn anxiety/agitation decreased Librium 25mg Q6h prn anxiety/agitation. DM, INSULIN DEPENDENT Hgb A1c: 7.8 on 03/01/17 NovoLog Sliding scale per protocol Lantus 8 units BID Will monitor HTN on metoprolol will monitor. TOBACCO ABUSE nicotine patch smoking cessation discussed BPH Flomax DVT PROPHYLAXIS lovenox SQ ASA 325 BID per ortho at discharge DISPOSITION Monitor in tele Full Code as per [facility] And [facility]. pt/ot prior to discharge Vital Signs: Date Time Temp Pulse Resp B/P (MAP) Pulse Ox O2 Delivery O2 Flow Rate FiO2 03/14/17 12:00 Room Air 03/14/17 11:57 36.8 89 18 141/90 (107) 92 03/14/17 10:23 61 124/75 (91) 03/14/17 08:00 Room Air 03/14/17 07:44 36.7 60 16 99/60 (73) 92 Room Air 03/14/17 04:04 36.6 75 20 119/71 (87) 90 Room Air 03/14/17 04:00 Room Air 03/14/17 00:00 Room Air 03/13/17 23:49 36.9 70 19 140/71 (94) 93 03/13/17 19:45 Room Air 03/13/17 19:41 37.0 66 24 127/70 (89) 92 Room Air 03/13/17 16:26 36.8 69 18 145/77 99 Room Air 03/13/17 15:27 70 23 98/52 99 Room Air Lab Results: Results Past 24 Hours Test 03/13/17 17:29 03/13/17 21:18 03/14/17 06:02 03/14/17 06:33 Range/Units Bedside Glucose 226 241 206 70-99 mg/dl White Blood Count 9.73 4.8-10.8 K/uL Red Blood Count 2.49 4.7-6.1 M/uL Hemoglobin 7.9 14.0-18.0 g/dL Hematocrit 24.9 42-52 % Mean Corpuscular Volume 100.0 80-100 fL Mean Corpuscular Hemoglobin 31.7 25-34 pg Mean Corpuscular Hemoglobin Concent 31.7 32-36 g/dl Platelet Count 309 130-400 K/uL Mean Platelet Volume 8.9 7.4-10.4 fL Neutrophils (%) (Auto) 79.6 % Lymphocytes (%) (Auto) 7.9 % Monocytes (%) (Auto) 9.1 % Eosinophils (%) (Auto) 2.5 % Basophils (%) (Auto) 0.3 % Neutrophils # (Auto) 7.74 1.4-6.5 K/uL Lymphocytes # (Auto) 0.77 1.2-3.4 K/uL Monocytes # (Auto) 0.89 0.11-0.59 K/uL Eosinophils # (Auto) 0.24 0-0.5 K/uL Basophils # (Auto) 0.03 0-0.2 K/uL RDW Standard Deviation 51.2 36.4-46.3 fL RDW Coefficient of Variation 13.9 11.5-14.5 % Immature Granulocyte % (Auto) 0.6 % Immature Granulocyte # (Auto) 0.06 0.00-0.02 K/uL Anisocytosis PRESENT Sodium Level 140 136-145 mmol/L Potassium Level 4.1 3.5-5.1 mmol/L Chloride Level 105 98-107 mmol/L Carbon Dioxide Level 25 21-32 mmol/L Anion Gap 10.0 3-11 mmol/L Blood Urea Nitrogen 16 7-18 mg/dl Creatinine 1.26 0.60-1.40 mg/dl Est Creatinine Clear Calc Drug Dose 90.1 ml/min Estimated GFR () 69.4 Estimated GFR (Non- 59.9 BUN/Creatinine Ratio 12.4 10-20 Random Glucose 181 70-99 mg/dl Calcium Level 8.4 8.5-10.1 mg/dl Magnesium Level 1.8 1.8-2.4 mg/dl Lipase 273 73-393 U/L Test 03/14/17 11:16 03/14/17 12:08 Range/Units Bedside Glucose 190 70-99 mg/dl Hemoglobin 8.9 14.0-18.0 g/dL Hematocrit 26.9 42-52 % Microbiology Results 03/13/17 MRSA DNA Surveillance Screen - Final, Complete Specimen Negative for MRSA by DNA Probe
[2017-03-14] MEDS: THIAMINE HCL 100 MG TAB PO SCH (19:37)
[2017-03-14] MEDS: ATORVASTATIN 10 MG TAB PO SCH (19:37)
[2017-03-15] VITALS (11 sets, daily range): BP systolic 125–154; BP diastolic 62–83; PULSE 55–79; TEMP 36.6–37.1; O2SAT 88–98
[2017-03-15] MEDS: METRONIDAZOLE / NSS 500 MG in PREMIXED NSS 100 ML IV SCH (03:50)
[2017-03-15 06:28] LABS: BASO % 0.4 %; BASO ABS # 0.03 K/uL (0-0.2); EOS % 3.1 %; HEMATOCRIT 24.5 % (42-52); LYMPH % 12.8 %; LYMPH ABS # 0.87 K/uL (1.2-3.4); MEAN CELL VOLUME 98.4 fL (80-100); MEAN CORPUSCULAR HEMOGLOBIN 31.3 pg (25-34); MEAN CORPUSCULAR HGB CONC 31.8 g/dl (32-36); MONO % 11.5 %; NEUT % 71.2 %; PLATELET COUNT 344 K/uL (130-400); RED BLOOD COUNT 2.49 M/uL (4.7-6.1); WHITE BLOOD COUNT 6.81 K/uL (4.8-10.8)
[2017-03-15 06:55] LABS: COMPLETE YES
[2017-03-15 07:03] LABS: BUN/CREATININE RATIO 12.8 (10-20); CALCIUM 8.5 mg/dl (8.5-10.1); CREATININE 1.28 mg/dl (0.60-1.40); MAGNESIUM 1.5 mg/dl (1.8-2.4)
[2017-03-15] MEDS: TAMSULOSIN HCL 0.4 MG CAP PO SCH (07:53)
[2017-03-15] MEDS: PANTOprazole SOD 40 MG TAB PO SCH (07:53)
[2017-03-15] MEDS: NICOTINE 21 MG/24 HR TDSY TD SCH (07:53)
[2017-03-15] MEDS: METOPROLOL SUCC 50MG EXT REL TAB PO SCH (07:53)
[2017-03-15] MEDS: ENOXAPARIN 30 MG/0.3 ML SYR SC SCH ×2 (07:54→21:08)
[2017-03-15] MEDS: LORAZEPAM 1 MG TAB PO PRN ×3 (07:58→22:32)
[2017-03-15] MEDS: PREGABALIN 25MG CAP PO SCH ×3 (07:59→21:07)
[2017-03-15] MEDS: OXYCODONE/ACETAMINOPHEN 5-325 TAB PO PRN ×3 (07:59→20:14)
[2017-03-15] MEDS: INSULIN ASPART 100 UNITS/ML 3 ML PEN SC SCH ×4 (08:05→21:00)
[2017-03-15] MEDS: INSULIN GLARGINE SOLOSTAR 100 UNITS/ML 3 ML PEN SC SCH ×2 (08:06→21:16)
[2017-03-15] MEDS: MAGNESIUM SULFATE 1GM / D5W 1 GM in PREMIXED IN D5W 100 ML IV SCH ×2 (08:34→10:21)
[2017-03-15] MEDS: MAGNESIUM CHLORIDE 64MG DELAYED REL TAB PO SCH ×2 (08:35→21:10)
[2017-03-15] MEDS: CIPROFLOXACIN / D5W 400 MG in PREMIXED IN D5W 200 ML IV SCH (10:21)
--- NOTE | 2017-03-15 11:39 | Gastroenterology Progress Note ---
Progress Note Date of Service: Mar 15, 2017 Subjective Pt evaluation today including: conversation w/ patient, physical exam, chart review, lab review, review of studies, review of inpatient medication list 66 year old male admitted with abdominal pain and diarrhea. Stool studies negative. CT scan showed pericolonic inflammation involving the distal descending and proximal sigmoid colon. He is on cipro and flagyl. He denies any abdominal pain today and has had no further BMs. His main complaint today is left hip pain. He is tearful today and reports a lot of anxiety. Review of Systems Constitutional: No fever, No chills Eyes: No worsening of vision, No eye pain ENT: No hearing loss Respiratory: No cough, No shortness of breath Cardiac: No chest pain Abdomen: + see HPI Musculoskeletal: + joint pain (Left Hip) Male : No dysuria, No urinary frequency Neuro: No problem reported Psych: No problem reported Heme: No abnormal bleeding/bruising Endo: No excessive thirst, No excessive urination Skin: No rash, No itch Medications Current Inpatient Medications Medications (Trade) Dose Ordered Sig/Sujey Route Start Time Stop Time Status Last Admin Dose Admin Ioversol (Optiray 320) 100 ml UD PRN IV 03/13/17 10:30 03/17/17 10:29 Glucose (Glucose 40% Gel) 15-30 GRAMS 15 GRAMS... UD PRN PO 03/13/17 13:45 04/12/17 13:44 Glucose (Glucose Chew Tab) 4-8 Tablets 4 Tabl... UD PRN PO 03/13/17 13:45 04/12/17 13:44 Dextrose (Dextrose 50% 50ML Syringe) 25-50ML OF 50% DW IV FOR... UD PRN IV 03/13/17 13:45 04/12/17 13:44 Glucagon (Glucagon Inj) 1 mg UD PRN SQ 03/13/17 13:45 04/12/17 13:44 Enoxaparin Sodium (Lovenox Inj) 30 mg Q12H SC 03/13/17 21:00 04/12/17 20:59 03/15/17 07:54 30 MG Chlordiazepoxide (Librium Cap) 25 mg Q6 PRN PO 03/13/17 14:00 04/12/17 13:59 03/14/17 22:31 25 MG Nicotine (Nicoderm Cq 21MG Patch) 1 patch QAM TD 03/13/17 16:00 04/12/17 15:59 03/15/17 07:53 1 PATCH Miscellaneous (Remove Nicoderm Patch) 1 ea HS N/A 03/13/17 21:00 04/12/17 20:59 03/14/17 19:37 1 EA Hydromorphone HCl (Dilaudid Inj) 0.5 mg Q8 PRN IV 03/13/17 14:00 03/27/17 13:59 03/14/17 16:14 0.5 MG Aspirin (Ecotrin Tab) 325 mg BID PO 03/13/17 21:00 04/12/17 20:59 Future Hold 03/14/17 07:41 325 MG Atorvastatin Calcium (Lipitor Tab) 10 mg HS PO 03/13/17 21:00 04/12/17 20:59 03/14/17 19:37 10 MG Chlordiazepoxide (Librium Cap) 50 mg Q6 PRN PO 03/13/17 14:00 04/12/17 13:59 Folic Acid (Folvite Tab) 1 mg QAM PO 03/14/17 09:00 04/13/17 08:59 03/15/17 07:52 1 MG Lorazepam (Ativan Tab) 1 mg Q4 PRN PO 03/13/17 14:00 04/12/17 13:59 03/15/17 07:58 1 MG Metoprolol Succinate (Toprol Xl Tab) 50 mg QAM PO 03/14/17 09:00 04/13/17 08:59 03/15/17 07:53 50 MG Oxycodone/ Acetaminophen (Percocet 5-325mg Tab) 1 tab Q4H PRN PO 03/13/17 14:00 03/27/17 13:59 03/15/17 07:59 1 TAB Pantoprazole Sodium (Protonix Tab) 40 mg QAM PO 03/14/17 09:00 04/13/17 08:59 03/15/17 07:53 40 MG Pregabalin (Lyrica Cap) 25 mg TID PO 03/13/17 14:00 04/12/17 13:59 03/15/17 07:59 25 MG Tamsulosin HCl (Flomax Cap) 0.4 mg QAM PO 03/14/17 09:00 04/13/17 08:59 03/15/17 07:53 0.4 MG Thiamine HCl (Vitamin B-1 Tab) 100 mg QPM PO 03/13/17 21:00 04/12/17 20:59 03/14/17 19:37 100 MG Acetaminophen (Tylenol Tab) 650 mg Q6 PRN PO 03/13/17 14:30 04/12/17 14:29 03/14/17 12:57 650 MG Insulin Glargine (Lantus Solostar Pen) 4 units Q12 SC 03/13/17 21:00 04/12/17 20:59 03/15/17 08:06 4 UNITS Phenol (Chloraseptic 1.4% [place]) 1 sprays TID PRN RI 03/14/17 01:30 04/13/17 01:29 03/14/17 01:58 1 SPRAYS Insulin Aspart (novoLOG ASPART) SLIDING SCALE If C... ACHS RI 03/14/17 11:30 04/13/17 11:29 03/15/17 08:05 11 UNITS Magnesium Chloride (Slow-Mag Tab) 64 mg BID PO 03/15/17 09:00 04/14/17 08:59 03/15/17 08:35 64 MG Ciprofloxacin (Cipro Tab) 500 mg BID PO 03/15/17 21:00 03/24/17 20:59 Metronidazole (Flagyl Tab) 500 mg TID PO 03/15/17 14:00 03/23/17 21:59 Objective Vital Signs Date Time Temp Pulse Resp B/P (MAP) Pulse Ox O2 Delivery O2 Flow Rate FiO2 03/15/17 08:13 36.8 69 18 133/62 (85) 96 Nasal Cannula 2.0 03/15/17 04:00 Room Air 03/15/17 03:32 36.6 79 28 136/72 (93) 88 Room Air 03/15/17 00:00 Room Air 03/14/17 23:25 37.0 65 21 136/76 (96) 93 Room Air 03/14/17 20:00 Room Air 03/14/17 19:30 37.1 62 18 123/80 (94) 96 Room Air 03/14/17 16:00 Room Air 03/14/17 15:50 36.7 61 20 122/72 (89) 97 Room Air 03/14/17 12:00 Room Air 03/14/17 11:57 36.8 89 18 141/90 (107) 92 Physical Exam General Appearance: no apparent distress Eyes: normal inspection ENT: + pertinent finding (hard of hearing) Neck: supple Respiratory/Chest: lungs clear, normal breath sounds, no respiratory distress Cardiovascular: regular rate, rhythm Abdomen: normal bowel sounds, non tender, soft Extremities: no pedal edema Neurologic/Psych: alert, + pertinent finding (tearful) Skin: normal color, no jaundice, warm/dry Laboratory Results Last 24 Hours Test 03/14/17 12:08 03/14/17 16:34 03/14/17 19:41 03/15/17 05:34 Hemoglobin 8.9 g/dL 7.8 g/dL Hematocrit 26.9 % 24.5 % Bedside Glucose 180 mg/dl 219 mg/dl White Blood Count 6.81 K/uL Red Blood Count 2.49 M/uL Mean Corpuscular Volume 98.4 fL Mean Corpuscular Hemoglobin 31.3 pg Mean Corpuscular Hemoglobin Concent 31.8 g/dl Platelet Count 344 K/uL Mean Platelet Volume 9.0 fL Neutrophils (%) (Auto) 71.2 % Lymphocytes (%) (Auto) 12.8 % Monocytes (%) (Auto) 11.5 % Eosinophils (%) (Auto) 3.1 % Basophils (%) (Auto) 0.4 % Neutrophils # (Auto) 4.85 K/uL Lymphocytes # (Auto) 0.87 K/uL Monocytes # (Auto) 0.78 K/uL Eosinophils # (Auto) 0.21 K/uL Basophils # (Auto) 0.03 K/uL RDW Standard Deviation 48.8 fL RDW Coefficient of Variation 13.6 % Immature Granulocyte % (Auto) 1.0 % Immature Granulocyte # (Auto) 0.07 K/uL Red Blood Cell Morphology Unremarkable Sodium Level 137 mmol/L Potassium Level 4.0 mmol/L Chloride Level 103 mmol/L Carbon Dioxide Level 24 mmol/L Anion Gap 10.0 mmol/L Blood Urea Nitrogen 16 mg/dl Creatinine 1.28 mg/dl Est Creatinine Clear Calc Drug Dose 87.8 ml/min Estimated GFR () 68.1 Estimated GFR (Non- 58.8 BUN/Creatinine Ratio 12.8 Random Glucose 195 mg/dl Calcium Level 8.5 mg/dl Magnesium Level 1.5 mg/dl Test 03/15/17 06:26 Bedside Glucose 212 mg/dl Assessment and Plan 66 year old male admitted with abdominal pain and diarrhea with abnormal imaging suggestive of a non-specific colitis Recommend an OP colonoscopy for further evaluation. This would need to be delayed 3-6 months (as per anesthesia) due to his recent cardiac arrest during recent hip surgery this month. Would also recommend OP clinic evaluation for hepatosplenomegaly with severe steatosis found on imaging.
[2017-03-15] MEDS: CHLORDIAZEPOXIDE 25 MG CAP PO PRN ×3 (11:47→22:32)
[2017-03-15] MEDS: HYDROmorphone INJ 0.5 MG/0.5 ML SYR IV PRN (11:48)
[2017-03-15] MEDS ORDERED: ACETAMINOPHEN 325 MG TAB PO SCH (14:00)
[2017-03-15] MEDS ORDERED: FUROSEMIDE INJ 20 MG in SYRINGE 0 ML IV SCH (14:00)
--- NOTE | 2017-03-15 14:18 | ORTHOPEDIC CONSULTATION ---
DATE OF CONSULTATION: 03/15/2017 DATE OF CONSULTATION: 03/15/2017 CHIEF COMPLAINT: Readmission to the hospital with diarrhea 2 weeks status post left total hip arthroplasty. SUBJECTIVE: With regards to his right hip, he is progressing slowly. He was up at physical therapy today and able to walk about 80 feet. This is a significant improvement from where he was last week. His hip looks good. The procedure was straightforward from the hip standpoint. I expect him to do well with this. PHYSICAL EXAMINATION: LEFT HIP: The dressing was removed. The Prevena VAC sponge was removed yesterday. The incision looks great. There is no drainage, looks like it is healing nicely. There is no erythema. His leg lengths are equal. He has active dorsiflexion and plantar flexion of his left ankle. IMPRESSION: Two weeks status post left total hip arthroplasty. PLAN: At this point, everything is looking very well. I want to see him in my office on Monday for staple removal, just a little bit too early to take them out at this point. He can continue to be up and weightbearing as tolerated. He is currently on Lovenox for DVT prophylaxis. He will be on some sort of DVT prophylaxis until he is 4 weeks out from the day of surgery. He can leave the incision opened to air or it can be covered if it is rubbing on his pants. He is orthopedically stable for discharge when medically ready. I will see him in my office on Monday. Office phone number is [phone].
[2017-03-15] MEDS: METRONIDAZOLE 500 MG TAB PO SCH ×2 (14:26→21:08)
--- NOTE | 2017-03-15 16:37 | Progress Note ---
Internal Med Progress Note Date of Service: Mar 15, 2017. Provider Documentation: SUBJECTIVE: resting comfortably no bowel movement today afebrile denies ob has pain in his surgery site ambulating with PT OBJECTIVE: Vital Signs-as noted below Exam: General-alert and oriented. Not in distress ENT-Normal hearing Neck-no neck masses Lungs-CTA b/l no wheezing or crackles Heart-S1 and S2 heard. Regular rate and rhythm, no murmurs Abdomen-Soft Bowel sounds present no tenderness present no distension Extremities-no edema no erythema. recent Left hip surgery site dressing intact Neuro-alert and awake moves extremities Lab data as noted below. ASSESSMENT & PLAN: 66M with Hx L hip arthroplasty 03/01/17 with cardiac arrest intraoperatively, taken back to OR for completed repair, hx ETOH withdrawal and [facility]. Presents with onset >20 episodes watery diarrhea since one day duration with fever 38.6C, lower abdominal pain. WBC: 15.0. negative POC lactate. CT scan showed non specific colitis NON SPECIFIC COLITIS: possible infectious? presented with Diarrhea On Ct scan' c diff negative stopped fluids currently on po flagyl and cipro- will complete 5 day course stool studies negative so far GI on board and appreciate inputs HYPOMAGNESIA replace f/u labs. RIB PAIN/RIB FRACTURE ON CT scan most likely secondary CPR last admission, or fall yesterday pain control incentive spirometry S/P L HIP ARTHROPLASTY: Pt with dressing in place Percocet prn pain consulted ortho Anemia most likely acute blood loss from recent surgery h 7.9 today will transfuse 2 units today PULMONARY NODULE: CT Chest: 5. 2.1 x 2.1 cm heavily calcified abnormality adjacent to or arising from the mid thoracic esophagus. Out pt follow-up chest CT in 6 months is recommended ALCOHOLISM No ETOH use since last hospitalization Will monitor for ETOH withdrawal Ativan prn anxiety/agitation decreased Librium 25mg Q6h prn anxiety/agitation. DM, INSULIN DEPENDENT Hgb A1c: 7.8 on 03/01/17 NovoLog Sliding scale per protocol Lantus 16 units q hs Will monitor HTN on metoprolol will monitor. TOBACCO ABUSE nicotine patch smoking cessation discussed BPH Flomax. Morbid obesity nocturnal pulse ox study DVT PROPHYLAXIS lovenox SQ ASA 325 BID per ortho at discharge DISPOSITION Monitor in tele Full Code as per [facility] And [facility]. pt/ot prior to discharge Vital Signs: Date Time Temp Pulse Resp B/P (MAP) Pulse Ox O2 Delivery O2 Flow Rate FiO2 03/16/17 06:55 37.2 69 18 154/82 (106) 95 Room Air 03/16/17 04:02 36.7 77 20 161/51 (87) 91 Nasal Cannula 2.0 03/16/17 04:00 Room Air 03/16/17 00:09 36.7 75 20 163/77 (105) 92 Room Air 03/16/17 00:01 Room Air 03/15/17 20:12 37.1 61 22 126/74 96 03/15/17 19:29 Room Air 03/15/17 18:57 36.9 59 20 136/77 97 03/15/17 18:16 37.0 57 20 137/77 95 03/15/17 17:07 37.0 64 16 154/83 98 03/15/17 16:09 37.1 61 20 143/76 96 03/15/17 16:00 Room Air 03/15/17 15:37 37.0 55 18 136/78 97 03/15/17 15:20 37.0 62 20 125/78 98 03/15/17 15:02 37.0 62 18 125/78 (94) 98 Room Air 03/15/17 12:00 Room Air 03/15/17 11:00 36.8 72 18 126/68 (87) 98 Nasal Cannula 2.0 03/15/17 08:13 36.8 69 18 133/62 (85) 96 Nasal Cannula 2.0 03/15/17 08:00 Nasal Cannula 2.0 Lab Results: Results Past 24 Hours Test 03/15/17 11:36 03/15/17 16:18 03/15/17 20:25 03/16/17 06:02 Range/Units Bedside Glucose 226 196 159 70-99 mg/dl White Blood Count 6.39 4.8-10.8 K/uL Red Blood Count 3.01 4.7-6.1 M/uL Hemoglobin 9.5 14.0-18.0 g/dL Hematocrit 29.3 42-52 % Mean Corpuscular Volume 97.3 80-100 fL Mean Corpuscular Hemoglobin 31.6 25-34 pg Mean Corpuscular Hemoglobin Concent 32.4 32-36 g/dl Platelet Count 358 130-400 K/uL Mean Platelet Volume 9.0 7.4-10.4 fL Neutrophils (%) (Auto) 67.9 % Lymphocytes (%) (Auto) 16.1 % Monocytes (%) (Auto) 11.0 % Eosinophils (%) (Auto) 3.1 % Basophils (%) (Auto) 0.6 % Neutrophils # (Auto) 4.34 1.4-6.5 K/uL Lymphocytes # (Auto) 1.03 1.2-3.4 K/uL Monocytes # (Auto) 0.70 0.11-0.59 K/uL Eosinophils # (Auto) 0.20 0-0.5 K/uL Basophils # (Auto) 0.04 0-0.2 K/uL RDW Standard Deviation 52.5 36.4-46.3 fL RDW Coefficient of Variation 14.7 11.5-14.5 % Immature Granulocyte % (Auto) 1.3 % Immature Granulocyte # (Auto) 0.08 0.00-0.02 K/uL Test 03/16/17 06:39 Range/Units Bedside Glucose 188 70-99 mg/dl
[2017-03-15] MEDS: ATORVASTATIN 10 MG TAB PO SCH (21:08)
[2017-03-15] MEDS: CIPROFLOXACIN 500 MG TAB PO SCH (21:09)
[2017-03-15] MEDS: THIAMINE HCL 100 MG TAB PO SCH (21:09)
[2017-03-16 00:09] VITALS: BP 163/77; PULSE 75; TEMP 36.7; O2SAT 92
[2017-03-16] MEDS: OXYCODONE/ACETAMINOPHEN 5-325 TAB PO PRN ×6 (00:27→22:01)
[2017-03-16 04:02] VITALS: BP 161/51; PULSE 77; TEMP 36.7; O2SAT 91
[2017-03-16] MEDS: CHLORDIAZEPOXIDE 25 MG CAP PO PRN ×3 (06:18→22:02)
[2017-03-16] MEDS: HYDROmorphone INJ 0.5 MG/0.5 ML SYR IV PRN ×2 (06:19→15:23)
[2017-03-16 06:55] VITALS: BP 154/82; PULSE 69; TEMP 37.2; O2SAT 95
[2017-03-16 07:13] LABS: BASO % 0.6 %; BASO ABS # 0.04 K/uL (0-0.2); COMPLETE YES; EOS % 3.1 %; HEMATOCRIT 29.3 % (42-52); IG% 1.3 %; LYMPH % 16.1 %; LYMPH ABS # 1.03 K/uL (1.2-3.4); MEAN CELL VOLUME 97.3 fL (80-100); MEAN CORPUSCULAR HEMOGLOBIN 31.6 pg (25-34); MEAN CORPUSCULAR HGB CONC 32.4 g/dl (32-36); NEUT % 67.9 %; PLATELET COUNT 358 K/uL (130-400); RED BLOOD COUNT 3.01 M/uL (4.7-6.1); WHITE BLOOD COUNT 6.39 K/uL (4.8-10.8)
[2017-03-16 07:38] LABS: BUN/CREATININE RATIO 12.5 (10-20); CALCIUM 9.2 mg/dl (8.5-10.1); CREATININE 1.38 mg/dl (0.60-1.40); MAGNESIUM 1.6 mg/dl (1.8-2.4); POTASSIUM 4.2 mmol/L (3.5-5.1)
[2017-03-16] MEDS: PREGABALIN 25MG CAP PO SCH ×3 (08:17→21:49)
[2017-03-16] MEDS: METRONIDAZOLE 500 MG TAB PO SCH ×3 (08:18→21:49)
[2017-03-16] MEDS: PANTOprazole SOD 40 MG TAB PO SCH (08:19)
[2017-03-16] MEDS: ENOXAPARIN 30 MG/0.3 ML SYR SC SCH ×2 (08:19→21:53)
[2017-03-16] MEDS: METOPROLOL SUCC 50MG EXT REL TAB PO SCH (08:19)
[2017-03-16] MEDS: NICOTINE 21 MG/24 HR TDSY TD SCH (08:19)
[2017-03-16] MEDS: CIPROFLOXACIN 500 MG TAB PO SCH ×2 (08:20→21:48)
[2017-03-16] MEDS: TAMSULOSIN HCL 0.4 MG CAP PO SCH (08:20)
[2017-03-16] MEDS: MAGNESIUM CHLORIDE 64MG DELAYED REL TAB PO SCH ×2 (08:21→21:50)
[2017-03-16] MEDS: INSULIN ASPART 100 UNITS/ML 3 ML PEN SC SCH ×4 (08:27→21:55)
[2017-03-16] MEDS ORDERED: MAGNESIUM SULFATE 1GM / D5W 1 GM in PREMIXED IN D5W 100 ML IV ONE (10:00)
[2017-03-16 11:06] VITALS: BP 164/74; PULSE 58; TEMP 37.1; O2SAT 94
[2017-03-16] MEDS ORDERED: DOCUSATE SODIUM 100 MG CAP PO PRN (12:00)
[2017-03-16] MEDS: FUROSEMIDE INJ 40 MG in SYRINGE 0 ML IV SCH (13:30)
[2017-03-16 15:42] VITALS: BP 131/81; PULSE 60; TEMP 36.9; O2SAT 94
--- NOTE | 2017-03-16 15:57 | Progress Note ---
Internal Med Progress Note Date of Service: Mar 16, 2017. Provider Documentation: SUBJECTIVE: resting comfortably on the chair no bowel movement today tolerating regular diet afebrile no nausea OBJECTIVE: Vital Signs-as noted below Exam: General-alert and oriented. Not in distress ENT-Normal hearing Neck-no neck masses Lungs-CTA b/l no wheezing or crackles Heart-S1 and S2 heard. Regular rate and rhythm, no murmurs Abdomen-Soft Bowel sounds present no tenderness present no distension Extremities lower extremity edema present no erythema. recent Left hip surgery site dressing intact Neuro-alert and awake moves extremities Lab data as noted below. ASSESSMENT & PLAN: 66M with Hx L hip arthroplasty 03/01/17 with cardiac arrest intraoperatively, taken back to OR for completed repair, hx ETOH withdrawal and d/c [facility] on 03/08[facility]17. Presents with onset >20 episodes watery diarrhea since one day duration with fever 38.6C, lower abdominal pain. WBC: 15.0. negative POC lactate. CT scan showed non specific colitis NON SPECIFIC COLITIS: possible infectious? presented with Diarrhea On Ct scan' c diff negative stopped fluids currently on po flagyl and cipro- will complete 5 day course stool studies negative so far GI on board and appreciate inputs improved HYPOMAGNESIA replace f/u labs. RIB PAIN/RIB FRACTURE ON CT scan most likely secondary CPR last admission, or fall yesterday pain control incentive spirometry S/P L HIP ARTHROPLASTY: Pt with dressing in place Percocet prn pain consulted ortho Anemia most likely acute blood loss from recent surgery h 7.9 03/15/17 s/p transfused 2 units hb 9.5 today Lower extremity edema recent echo ok possible venous insufficiency will give Lasix PULMONARY NODULE: CT Chest: 5. 2.1 x 2.1 cm heavily calcified abnormality adjacent to or arising from the mid thoracic esophagus. Out pt follow-up chest CT in 6 months is recommended ALCOHOLISM No ETOH use since last hospitalization Will monitor for ETOH withdrawal Ativan prn anxiety/agitation decreased Librium 25mg Q6h prn anxiety/agitation. stable DM, INSULIN DEPENDENT Hgb A1c: 7.8 on 03/01/17 NovoLog Sliding scale per protocol Lantus 16 units q hs Will monitor HTN on metoprolol will monitor. TOBACCO ABUSE nicotine patch smoking cessation discussed BPH Flomax. Morbid obesity nocturnal pulse ox study DVT PROPHYLAXIS lovenox SQ ASA 325 BID per ortho at discharge DISPOSITION Monitor in tele Full Code as per H And P. pt/ot prior to discharge possible d/c to rehab in am Vital Signs: Date Time Temp Pulse Resp B/P (MAP) Pulse Ox O2 Delivery O2 Flow Rate FiO2 03/16/17 12:00 Room Air 03/16/17 11:06 37.1 58 9 164/74 (104) 94 Room Air 03/16/17 08:00 Room Air 03/16/17 06:55 37.2 69 18 154/82 (106) 95 Room Air 03/16/17 04:02 36.7 77 20 161/51 (87) 91 Nasal Cannula 2.0 03/16/17 04:00 Room Air 03/16/17 00:09 36.7 75 20 163/77 (105) 92 Room Air 03/16/17 00:01 Room Air 03/15/17 20:12 37.1 61 22 126/74 96 03/15/17 19:29 Room Air 03/15/17 18:57 36.9 59 20 136/77 97 03/15/17 18:16 37.0 57 20 137/77 95 03/15/17 17:07 37.0 64 16 154/83 98 03/15/17 16:09 37.1 61 20 143/76 96 Lab Results: Results Past 24 Hours Test 03/15/17 16:18 03/15/17 20:25 03/16/17 06:02 03/16/17 06:39 Range/Units Bedside Glucose 196 159 188 70-99 mg/dl White Blood Count 6.39 4.8-10.8 K/uL Red Blood Count 3.01 4.7-6.1 M/uL Hemoglobin 9.5 14.0-18.0 g/dL Hematocrit 29.3 42-52 % Mean Corpuscular Volume 97.3 80-100 fL Mean Corpuscular Hemoglobin 31.6 25-34 pg Mean Corpuscular Hemoglobin Concent 32.4 32-36 g/dl Platelet Count 358 130-400 K/uL Mean Platelet Volume 9.0 7.4-10.4 fL Neutrophils (%) (Auto) 67.9 % Lymphocytes (%) (Auto) 16.1 % Monocytes (%) (Auto) 11.0 % Eosinophils (%) (Auto) 3.1 % Basophils (%) (Auto) 0.6 % Neutrophils # (Auto) 4.34 1.4-6.5 K/uL Lymphocytes # (Auto) 1.03 1.2-3.4 K/uL Monocytes # (Auto) 0.70 0.11-0.59 K/uL Eosinophils # (Auto) 0.20 0-0.5 K/uL Basophils # (Auto) 0.04 0-0.2 K/uL RDW Standard Deviation 52.5 36.4-46.3 fL RDW Coefficient of Variation 14.7 11.5-14.5 % Immature Granulocyte % (Auto) 1.3 % Immature Granulocyte # (Auto) 0.08 0.00-0.02 K/uL Sodium Level 138 136-145 mmol/L Potassium Level 4.2 3.5-5.1 mmol/L Chloride Level 104 98-107 mmol/L Carbon Dioxide Level 27 21-32 mmol/L Anion Gap 7.0 3-11 mmol/L Blood Urea Nitrogen 17 7-18 mg/dl Creatinine 1.38 0.60-1.40 mg/dl Est Creatinine Clear Calc Drug Dose 82.1 ml/min Estimated GFR () 62.2 Estimated GFR (Non- 53.6 BUN/Creatinine Ratio 12.5 10-20 Random Glucose 166 70-99 mg/dl Calcium Level 9.2 8.5-10.1 mg/dl Magnesium Level 1.6 1.8-2.4 mg/dl Test 03/16/17 10:56 Range/Units Bedside Glucose 161 70-99 mg/dl
[2017-03-16] MEDS: LORAZEPAM 1 MG TAB PO PRN ×2 (17:07→22:01)
[2017-03-16] MEDS: POLYETHYLENE (MIRALAX) 17 GM PACK PO PRN (17:08)
[2017-03-16 20:09] VITALS: BP 127/70; PULSE 69; TEMP 37; O2SAT 93
[2017-03-16] MEDS: ATORVASTATIN 10 MG TAB PO SCH (21:49)
[2017-03-16] MEDS: THIAMINE HCL 100 MG TAB PO SCH (21:50)
[2017-03-16] MEDS: INSULIN GLARGINE SOLOSTAR 100 UNITS/ML 3 ML PEN SC SCH (21:54)
[2017-03-17] VITALS (9 sets, daily range): BP systolic 146–176; BP diastolic 75–89; PULSE 70–85; TEMP 36.3–37.2; O2SAT 79–98
[2017-03-17 06:38] LABS: BASO % 0.8 %; BASO ABS # 0.05 K/uL (0-0.2); COMPLETE YES; EOS % 3.2 %; HEMATOCRIT 28.6 % (42-52); IG% 1.6 %; LYMPH % 16.2 %; MEAN CELL VOLUME 96.9 fL (80-100); MEAN CORPUSCULAR HEMOGLOBIN 31.5 pg (25-34); MEAN CORPUSCULAR HGB CONC 32.5 g/dl (32-36); MEAN PLATELET VOLUME 8.6 fL (7.4-10.4); MONO % 11.5 %; NEUT % 66.7 %; PLATELET COUNT 363 K/uL (130-400); RED BLOOD COUNT 2.95 M/uL (4.7-6.1); WHITE BLOOD COUNT 6.16 K/uL (4.8-10.8)
[2017-03-17 07:11] LABS: BUN/CREATININE RATIO 14.1 (10-20); CALCIUM 8.6 mg/dl (8.5-10.1); CREATININE 1.36 mg/dl (0.60-1.40); MAGNESIUM 1.5 mg/dl (1.8-2.4)
[2017-03-17] MEDS: OXYCODONE/ACETAMINOPHEN 5-325 TAB PO PRN ×2 (07:48→15:27)
[2017-03-17] MEDS: LORAZEPAM 1 MG TAB PO PRN ×3 (07:49→21:34)
[2017-03-17] MEDS: METOPROLOL SUCC 50MG EXT REL TAB PO SCH (07:51)
[2017-03-17] MEDS: NICOTINE 21 MG/24 HR TDSY TD SCH (07:51)
[2017-03-17] MEDS: MAGNESIUM CHLORIDE 64MG DELAYED REL TAB PO SCH ×2 (07:51→21:37)
[2017-03-17] MEDS: CIPROFLOXACIN 500 MG TAB PO SCH ×2 (07:51→21:36)
[2017-03-17] MEDS: PANTOprazole SOD 40 MG TAB PO SCH (07:52)
[2017-03-17] MEDS: METRONIDAZOLE 500 MG TAB PO SCH ×3 (07:52→21:35)
[2017-03-17] MEDS: DOCUSATE SODIUM/SENNA 50/8.6MG TAB PO SCH (07:52)
[2017-03-17] MEDS: TAMSULOSIN HCL 0.4 MG CAP PO SCH (07:54)
[2017-03-17] MEDS: ENOXAPARIN 30 MG/0.3 ML SYR SC SCH ×2 (07:55→21:37)
[2017-03-17] MEDS: PREGABALIN 25MG CAP PO SCH ×4 (08:18→21:34)
[2017-03-17] MEDS: CHLORDIAZEPOXIDE 25 MG CAP PO PRN ×3 (08:18→21:35)
[2017-03-17] MEDS: INSULIN ASPART 100 UNITS/ML 3 ML PEN SC SCH ×4 (08:18→21:34)
[2017-03-17 09:48] LABS: ARTERIAL BLOOD GAS HCO3 27 mmol/L (19-24); ARTERIAL BLOOD GAS PO2 66 mm/Hg (80-95)
[2017-03-17 09:49] LABS: ALLEN TEST POS (POS); O2 ADMINISTRATION RA
[2017-03-17] MEDS: MAGNESIUM SULFATE 1GM / D5W 1 GM in PREMIXED IN D5W 100 ML IV SCH ×2 (10:20→13:19)
[2017-03-17] MEDS: FUROSEMIDE INJ 40 MG in SYRINGE 0 ML IV SCH (13:59)
--- NOTE | 2017-03-17 15:38 | Progress Note ---
Internal Med Progress Note Date of Service: Mar 17, 2017. Provider Documentation: SUBJECTIVE: resting comfortably on the chair ambulating ok with PT afebrile pain at left hip no other complaints OBJECTIVE: Vital Signs-as noted below Exam: General-alert and oriented. Not in distress ENT-Normal hearing Neck-no neck masses Lungs-CTA b/l no wheezing or crackles Heart-S1 and S2 heard. Regular rate and rhythm, no murmurs Abdomen-Soft Bowel sounds present no tenderness present no distension Extremities lower extremity edema present no erythema. recent Left hip surgery site dressing intact Neuro-alert and awake moves extremities Lab data as noted below. ASSESSMENT & PLAN: 66M with Hx L hip arthroplasty 03/01/17 with cardiac arrest intraoperatively, taken back to OR for completed repair, hx ETOH withdrawal and d/c [facility] on 03/08/17. Presents with onset >20 episodes watery diarrhea since one day duration with fever 38.6C, lower abdominal pain. WBC: 15.0. negative POC lactate. CT scan showed non specific colitis NON SPECIFIC COLITIS: possible infectious? presented with Diarrhea On Ct scan' c diff negative stopped fluids currently on po flagyl and cipro- will complete 5 day course stool studies negative so far GI on board and appreciate inputs improved will stop abx in am HYPOMAGNESIA replace f/u labs. RIB PAIN/RIB FRACTURE ON CT scan most likely secondary CPR last admission, or fall yesterday pain control incentive spirometry S/P L HIP ARTHROPLASTY: Pt with dressing in place Percocet prn pain consulted ortho Anemia most likely acute blood loss from recent surgery h 7.9 03/15/17 s/p transfused 2 units hb 9.3 today anemia workup as out patient Lower extremity edema recent echo ok possible venous insufficiency will give Lasix to elevate legs while sleeping stockings Stable conditions: PULMONARY NODULE: CT Chest: 5. 2.1 x 2.1 cm heavily calcified abnormality adjacent to or arising from the mid thoracic esophagus. Out pt follow-up chest CT in 6 months is recommended ALCOHOLISM No ETOH use since last hospitalization Will monitor for ETOH withdrawal Ativan prn anxiety/agitation decreased Librium 25mg Q6h prn anxiety/agitation. stable DM, INSULIN DEPENDENT Hgb A1c: 7.8 on 03/01/17 NovoLog Sliding scale per protocol Lantus 16 units q hs Will monitor HTN on metoprolol will monitor. TOBACCO ABUSE nicotine patch smoking cessation discussed BPH Flomax. Morbid obesity nocturnal pulse ox study DVT PROPHYLAXIS lovenox SQ ASA 325 BID per ortho at discharge DISPOSITION Transfer to medical floor Full Code as per H And P. pt/ot prior to discharge possible d/c to rehab in am Vital Signs: Date Time Temp Pulse Resp B/P (MAP) Pulse Ox O2 Delivery O2 Flow Rate FiO2 03/17/17 15:10 36.4 75 16 148/89 (108) 93 Room Air 03/17/17 13:36 36.5 71 20 176/76 (109) 98 Room Air 03/17/17 12:00 Room Air 03/17/17 11:58 37.2 85 18 154/88 (110) 96 03/17/17 08:00 Room Air 03/17/17 07:23 36.9 81 20 168/84 (112) 91 3.0 03/17/17 05:43 16 Nasal Cannula 3.0 03/17/17 04:33 37.1 82 82 148/75 (99) 94 Nasal Cannula 3.0 03/17/17 04:00 Room Air 03/17/17 02:45 93 Nasal Cannula 3.0 03/17/17 02:40 79 Room Air 03/17/17 00:01 Room Air 03/17/17 00:00 36.9 70 20 146/78 (100) 91 Room Air 03/16/17 20:09 37.0 69 20 127/70 (89) 93 Room Air 03/16/17 20:00 Room Air 03/16/17 16:00 Room Air 03/16/17 15:42 36.9 60 20 131/81 (98) 94 Room Air Lab Results: Results Past 24 Hours Test 03/16/17 16:18 03/16/17 21:01 03/17/17 06:20 03/17/17 06:55 Range/Units Bedside Glucose 148 191 211 70-99 mg/dl White Blood Count 6.16 4.8-10.8 K/uL Red Blood Count 2.95 4.7-6.1 M/uL Hemoglobin 9.3 14.0-18.0 g/dL Hematocrit 28.6 42-52 % Mean Corpuscular Volume 96.9 80-100 fL Mean Corpuscular Hemoglobin 31.5 25-34 pg Mean Corpuscular Hemoglobin Concent 32.5 32-36 g/dl Platelet Count 363 130-400 K/uL Mean Platelet Volume 8.6 7.4-10.4 fL Neutrophils (%) (Auto) 66.7 % Lymphocytes (%) (Auto) 16.2 % Monocytes (%) (Auto) 11.5 % Eosinophils (%) (Auto) 3.2 % Basophils (%) (Auto) 0.8 % Neutrophils # (Auto) 4.10 1.4-6.5 K/uL Lymphocytes # (Auto) 1.00 1.2-3.4 K/uL Monocytes # (Auto) 0.71 0.11-0.59 K/uL Eosinophils # (Auto) 0.20 0-0.5 K/uL Basophils # (Auto) 0.05 0-0.2 K/uL RDW Standard Deviation 51.3 36.4-46.3 fL RDW Coefficient of Variation 14.4 11.5-14.5 % Immature Granulocyte % (Auto) 1.6 % Immature Granulocyte # (Auto) 0.10 0.00-0.02 K/uL Sodium Level 135 136-145 mmol/L Potassium Level 4.0 3.5-5.1 mmol/L Chloride Level 100 98-107 mmol/L Carbon Dioxide Level 27 21-32 mmol/L Anion Gap 8.0 3-11 mmol/L Blood Urea Nitrogen 19 7-18 mg/dl Creatinine 1.36 0.60-1.40 mg/dl Est Creatinine Clear Calc Drug Dose 84.5 ml/min Estimated GFR () 63.3 Estimated GFR (Non- 54.6 BUN/Creatinine Ratio 14.1 10-20 Random Glucose 212 70-99 mg/dl Calcium Level 8.6 8.5-10.1 mg/dl Magnesium Level 1.5 1.8-2.4 mg/dl Test 03/17/17 09:37 03/17/17 11:17 Range/Units Arterial Blood pH 7.40 7.35-7.45 Arterial Blood Partial Pressure CO2 45 35-46 mmHg Arterial Blood Partial Pressure O2 66 80-95 mm/Hg Arterial Blood HCO3 27 19-24 mmol/L Arterial Blood Oxygen Saturation 91.0 90-95 % Arterial Blood Base Excess 2.0 -9-1.8 mEq/L Arterial Blood Gas Delivery RA Maurice Test POS POS Bedside Glucose 254 70-99 mg/dl
[2017-03-17] MEDS: POLYETHYLENE (MIRALAX) 17 GM PACK PO PRN (17:23)
[2017-03-17] MEDS: INSULIN GLARGINE SOLOSTAR 100 UNITS/ML 3 ML PEN SC SCH (21:34)
[2017-03-17] MEDS: THIAMINE HCL 100 MG TAB PO SCH (21:35)
[2017-03-17] MEDS: ATORVASTATIN 10 MG TAB PO SCH (21:36)
[2017-03-18 00:21] VITALS: BP 152/82; O2SAT 93
[2017-03-18] MEDS: OXYCODONE/ACETAMINOPHEN 5-325 TAB PO PRN ×3 (02:27→12:46)
[2017-03-18 07:39] LABS: BASO % 0.5 %; BASO ABS # 0.03 K/uL (0-0.2); COMPLETE YES; EOS % 2.8 %; HEMATOCRIT 29.6 % (42-52); IG% 2.4 %; LYMPH % 18.1 %; LYMPH ABS # 1.04 K/uL (1.2-3.4); MEAN CELL VOLUME 97.7 fL (80-100); MEAN CORPUSCULAR HEMOGLOBIN 31.4 pg (25-34); MEAN CORPUSCULAR HGB CONC 32.1 g/dl (32-36); MEAN PLATELET VOLUME 8.4 fL (7.4-10.4); MONO % 11.3 %; NEUT % 64.9 %; PLATELET COUNT 333 K/uL (130-400); RED BLOOD COUNT 3.03 M/uL (4.7-6.1); WHITE BLOOD COUNT 5.76 K/uL (4.8-10.8)
[2017-03-18] MEDS: POLYETHYLENE (MIRALAX) 17 GM PACK PO PRN (07:59)
[2017-03-18] MEDS: METRONIDAZOLE 500 MG TAB PO SCH ×2 (07:59→14:05)
[2017-03-18] MEDS: PREGABALIN 25MG CAP PO SCH ×2 (07:59→14:05)
[2017-03-18] MEDS: CIPROFLOXACIN 500 MG TAB PO SCH (07:59)
[2017-03-18 08:00] VITALS: O2SAT 93
[2017-03-18] MEDS: DOCUSATE SODIUM/SENNA 50/8.6MG TAB PO SCH (08:00)
[2017-03-18] MEDS: TAMSULOSIN HCL 0.4 MG CAP PO SCH (08:00)
[2017-03-18] MEDS: PANTOprazole SOD 40 MG TAB PO SCH (08:00)
[2017-03-18] MEDS: METOPROLOL SUCC 50MG EXT REL TAB PO SCH (08:00)
[2017-03-18] MEDS: ENOXAPARIN 30 MG/0.3 ML SYR SC SCH (08:01)
[2017-03-18] MEDS: MAGNESIUM CHLORIDE 64MG DELAYED REL TAB PO SCH (08:01)
[2017-03-18] MEDS: NICOTINE 21 MG/24 HR TDSY TD SCH (08:03)
[2017-03-18 08:10] LABS: BUN/CREATININE RATIO 11.1 (10-20); CALCIUM 8.9 mg/dl (8.5-10.1); CREATININE 1.42 mg/dl (0.60-1.40); MAGNESIUM 1.5 mg/dl (1.8-2.4); POTASSIUM 4.1 mmol/L (3.5-5.1)
[2017-03-18] MEDS: INSULIN ASPART 100 UNITS/ML 3 ML PEN SC SCH ×2 (08:13→12:52)
[2017-03-18] MEDS: CHLORDIAZEPOXIDE 25 MG CAP PO PRN ×2 (08:16→15:45)
[2017-03-18] MEDS: LORAZEPAM 1 MG TAB PO PRN ×2 (08:16→12:46)
[2017-03-18 08:42] VITALS: BP 150/80; PULSE 70; TEMP 36.9; O2SAT 95
[2017-03-18] MEDS ORDERED: MAGNESIUM SULFATE 1GM / D5W 1 GM in PREMIXED IN D5W 100 ML IV ONE (12:15)
--- NOTE | 2017-03-18 14:09 | Progress Note ---
Internal Med Progress Note Date of Service: Mar 18, 2017. Provider Documentation: SUBJECTIVE: resting comfortably on the chair complains of pain at right hip had normal bowel movement today afebrile ok for rehab today OBJECTIVE: Vital Signs-as noted below Exam: General-alert and oriented. Not in distress ENT-Normal hearing Neck-no neck masses Lungs-CTA b/l no wheezing or crackles Heart-S1 and S2 heard. Regular rate and rhythm, no murmurs Abdomen-Soft Bowel sounds present no tenderness present no distension Extremities lower extremity edema present no erythema. recent Left hip surgery site clean Neuro-alert and awake moves extremities Lab data as noted below. ASSESSMENT & PLAN: 66M with Hx L hip arthroplasty 03/01/17 with cardiac arrest intraoperatively, taken back to OR for completed repair, hx ETOH withdrawal and d/c [facility] on 03/08/17. Presents with onset >20 episodes watery diarrhea since one day duration with fever 38.6C, lower abdominal pain. WBC: 15.0. negative POC lactate. CT scan showed non specific colitis NON SPECIFIC COLITIS: possible infectious? presented with Diarrhea On Ct scan' c diff negative stopped fluids currently on po flagyl and cipro- completed 5 day course stool studies negative so far GI on board and appreciate inputs resolved HYPOMAGNESIA replace f/u labs. RIB PAIN/RIB FRACTURE ON CT scan most likely secondary CPR last admission, or fall yesterday pain control incentive spirometry S/P L HIP ARTHROPLASTY: Percocet prn pain f/u with ortho Anemia most likely acute blood loss from recent surgery h 7.9 03/15/17 s/p transfused 2 units hb 9.5today anemia workup as out patient as recently had cardiac arrest Lower extremity edema recent echo ok possible venous insufficiency will give Lasix to elevate legs while sleeping needs stockings pt/ot PULMONARY NODULE: CT Chest: 5. 2.1 x 2.1 cm heavily calcified abnormality adjacent to or arising from the mid thoracic esophagus. Out pt follow-up chest CT in 6 months is recommended ALCOHOLISM No ETOH use since last hospitalization Will monitor for ETOH withdrawal decreased Librium 12.5mg Q6h prn anxiety/agitation. stable DM, INSULIN DEPENDENT Hgb A1c: 7.8 on 03/01/17 NovoLog Sliding scale per protocol Lantus 16 units q hs Will monitor HTN on metoprolol will monitor. TOBACCO ABUSE nicotine patch smoking cessation discussed BPH Flomax. Morbid obesity nocturnal pulse ox study requiring 3lts oxygen while sleeping needs sleep study as out patient DVT PROPHYLAXIS lovenox SQ ASA 325 BID per ortho at discharge DISPOSITION discharge to rehab today Vital Signs: Date Time Temp Pulse Resp B/P (MAP) Pulse Ox O2 Delivery O2 Flow Rate FiO2 03/18/17 08:42 36.9 70 22 150/80 (103) 95 Nasal Cannula 3.0 03/18/17 08:00 93 Nasal Cannula 03/18/17 00:21 152/82 (105) 93 Nasal Cannula 3.0 03/18/17 00:00 Room Air 03/17/17 23:07 36.3 82 20 172/83 (112) 90 Room Air 03/17/17 20:00 Room Air 03/17/17 16:18 Room Air 03/17/17 15:10 36.4 75 16 148/89 (108) 93 Room Air Lab Results: Results Past 24 Hours Test 03/17/17 16:36 03/17/17 20:34 03/18/17 07:24 03/18/17 07:42 Range/Units Bedside Glucose 203 257 221 70-99 mg/dl White Blood Count 5.76 4.8-10.8 K/uL Red Blood Count 3.03 4.7-6.1 M/uL Hemoglobin 9.5 14.0-18.0 g/dL Hematocrit 29.6 42-52 % Mean Corpuscular Volume 97.7 80-100 fL Mean Corpuscular Hemoglobin 31.4 25-34 pg Mean Corpuscular Hemoglobin Concent 32.1 32-36 g/dl Platelet Count 333 130-400 K/uL Mean Platelet Volume 8.4 7.4-10.4 fL Neutrophils (%) (Auto) 64.9 % Lymphocytes (%) (Auto) 18.1 % Monocytes (%) (Auto) 11.3 % Eosinophils (%) (Auto) 2.8 % Basophils (%) (Auto) 0.5 % Neutrophils # (Auto) 3.74 1.4-6.5 K/uL Lymphocytes # (Auto) 1.04 1.2-3.4 K/uL Monocytes # (Auto) 0.65 0.11-0.59 K/uL Eosinophils # (Auto) 0.16 0-0.5 K/uL Basophils # (Auto) 0.03 0-0.2 K/uL RDW Standard Deviation 51.7 36.4-46.3 fL RDW Coefficient of Variation 14.5 11.5-14.5 % Immature Granulocyte % (Auto) 2.4 % Immature Granulocyte # (Auto) 0.14 0.00-0.02 K/uL Sodium Level 138 136-145 mmol/L Potassium Level 4.1 3.5-5.1 mmol/L Chloride Level 102 98-107 mmol/L Carbon Dioxide Level 31 21-32 mmol/L Anion Gap 6.0 3-11 mmol/L Blood Urea Nitrogen 16 7-18 mg/dl Creatinine 1.42 0.60-1.40 mg/dl Est Creatinine Clear Calc Drug Dose 80.9 ml/min Estimated GFR () 60.1 Estimated GFR (Non- 51.8 BUN/Creatinine Ratio 11.1 10-20 Random Glucose 201 70-99 mg/dl Calcium Level 8.9 8.5-10.1 mg/dl Magnesium Level 1.5 1.8-2.4 mg/dl Test 03/18/17 11:30 Range/Units Bedside Glucose 223 70-99 mg/dl
[2017-03-18] MEDS ORDERED: OXYC-57 PO (14:15)
[2017-03-18] MEDS ORDERED: MULT-1042 PO (14:15)
[2017-03-18] MEDS ORDERED: ASPEC81 PO (14:15)
[2017-03-18] MEDS ORDERED: ATV/1 PO (14:15)
[2017-03-18] MEDS ORDERED: SLWMEC PO (14:15)
[2017-03-18] MEDS ORDERED: OXGN (14:16)
--- NOTE | 2017-03-18 14:22 | Discharge Instructions ---
Discharge Instructions Date of Service Mar 18, 2017. Admission Reason for Admission: Colitis, Diarrhea, Fall Discharge Discharge Diagnosis / Problem: colitis, diarrhea Discharge Goals Goal(s): Decrease discomfort, Improve function Activity Recommendations Activity Level: Up Ad Anastasia . Additional Information Patient informed of condition: Yes Advance Directives: Yes DNR: No Level of Care: Acute Rehab Communicable Disease: No Prognosis: Stable Oxygen at (LPM): 3lts via nasal canula while sleeping Garcia Catheter: No Instructions / Follow-Up Instructions / Follow-Up FOLLOW UP WITH FAMILY DOCTOR ONE WEEK ON DISCHARGE FROM REHAB REQUIRING 3LTS VIA NASAL CANULA WHILE SLEEPING ON NOCTURNAL PULSE OX STUDY. NEEDS SLEEP STUDY OUT PATIENT WITH PCP REFERRAL. FOLLOWUP WITH ORTHOPEDICS EARLY NEXT WEEK( MONDAY) FOR STAPLE REMOVAL. CONTINUE DVT PROPHYLAXIS AT LEAST ONE MONTH POST RECENT HIP SURGERY.(UNTIL Mar). STOCKINGS DAILY FOR LOWER EXTREMITY EDEMA. FOLLOWUP WITH PCP WITH REPEAT CT CHEST IN 6 MONTHS FOR LUNG NODULE. Current Hospital Diet Patient's current hospital diet: Diabetes Type 2 Diet Discharge Diet Recommended Diet: AHA Diet (Heart Healthy), Diabetes Type 2 Diet Pending Studies Studies pending at discharge: no Physician Orders On Transfer Special Precautions: FALL AND ASPIRATION PRECAUTIONS Vital Signs: EVERY 8HRS Laboratory Results Hemoglobin A1c Test 03/01/17 18:00 Range/Units Estimated Average Glucose 177 mg/dl Hemoglobin A1c 7.8 H 4.5-5.6 % Medical Emergencies . Who to Call and When: Medical Emergencies: If at any time you feel your situation is an emergency, please call 911 immediately. . Non-Emergent Contact Non-Emergency issues call your: Primary Care Provider . . "Provider Documentation" section prepared by Guillermo Lang. . Core Measure Problem Core Measures: None
--- NOTE | 2017-03-18 14:26 | Discharge Summary ---
Discharge Summary Date of Service Mar 18, 2017. Discharge Summary Admission Date: Mar 13, 2017 at 12:51 Discharge Date: Mar 18, 2017 Discharge Disposition: Rehab Principal Diagnosis: COLITIS, DIARRHEA, ANEMIA Secondary Diagnoses/Problems: (1) DM type 2 (diabetes mellitus, type 2) Status: Chronic (2) Dyslipidemia Status: Chronic (3) History of arthroplasty of left hip Permanent Comment: 03/01/17. hx cardiac arrest intraoperatively Status: Resolved (4) HTN (hypertension) Status: Chronic (5) Lumbar degenerative disc disease Status: Chronic (6) Osteoarthritis of left hip Status: Chronic Procedures: CTA CHEST: 1. No central or lobar pulmonary emboli. Segmental and subsegmental pulmonary arteries suboptimally assessed. 2. Trace bilateral pleural effusions with associated atelectasis. 3. Numerous acute to subacute nondisplaced bilateral anterior rib fractures. No pneumothorax. 4. Moderate cardiomegaly. Dilatation of the main pulmonary artery which raises the possibility of pulmonary arterial hypertension. 5. 2.1 x 2.1 cm heavily calcified abnormality adjacent to or arising from the mid thoracic esophagus. This could reflect a calcified thoracic lymph node or calcified esophageal lesion such as a leiomyoma. This can be assessed on a follow-up chest CT in 6 months. 6. Several indeterminate but low suspicion pulmonary nodules. A follow-up chest CT in 6 months is recommended to ensure stability. CT ABD/PELVIS: 1. There is moderate diverticulosis of the left colon. There is a long segment (at least 17 cm) of wall thickening/edema and pericolonic inflammation involving the distal descending and proximal sigmoid colon. Although there is significant diverticular disease in this region, the length of involvement favors a nonspecific colitis. Diverticulitis is considered less likely and clinical correlation will be required. 2. No intraperitoneal free air is identified and there is no evidence of abscess. 3. Cardiomegaly and trace pleural effusions. 4. Hepatomegaly and severe hepatic steatosis. 5. Splenomegaly. CXR: Mild cardiomegaly. No acute findings. Consultations: ORTHOPEDICS GI Medication Reconciliation New Medications: Aspirin (Aspirin EC Low Dose) 81 Mg Ectab 81 MG PO DAILY, #30 2 Refills Home O2 Therapy (Oxygen) Gas 3 LITER NA PRN PRN for while sleeping, #1 1 Refill Multiple Vitamins W/ Minerals (Multi Vitamin and Mineral) 1 Tab Tab 1 TAB PO DAILY, #30 1 Refill Magnesium Chloride (Slow-Mag Tab) 64 Mg Tabcr 64 MG PO DAILY, #30 1 Refill Changed Medications: Lorazepam (Ativan) 1 Mg Tab 1 MG PO Q6 PRN for Anxiety, #20 (Changed from: Q4) Continued Medications: Acetaminophen (Tylenol) 500 Mg Tab 500 MG PO Q4 PRN for Pain Atorvastatin (Lipitor) 10 Mg Tab 10 MG PO HS Bisacodyl (Bisacodyl) 10 Mg Sup 1 SUPP OK DAILY PRN for Constipation Dextrose (Diabetic Use) (Glucose) 40 % Gel 1 APPLN TOP DAILY PRN for HYPOGLYCEMIA Docusate Sodium (Docusate Sodium) 100 Mg Tab 100 MG PO BID PRN for Constipation Enoxaparin (Lovenox) 30 Mg/0.3 Ml Inj 30 MG SQ BID Folic Acid (Folvite) 1 Mg Tab 1 TAB PO QAM for 90 Days, #90 TAB 1 Refill Glucagon (Glucagon Emergency Kit) 1 Mg Kit 1 MG SC UD PRN for HYPOGLYCEMIA Insulin Aspart (Novolog Penfill) 100 Unit/Ml Inj 1 DOSE SQ ACHS PER SLIDING SCALE: LESS THAN 70=HYPOGLYCEMIA PROTOCOL 70-130=0 UNITS 131-180= 2 UNITS 181-240= 4 UNITS 241-300= 6 UNITS 301-350= 8 UNITS 351-400= 10 UNITS GREATER THAN 400= 12 UNITS; CALL Insulin Glargine (Lantus) 100 Unit/Ml Inj 16 UNITS SC HS Magnesium Hydroxide (Milk Of Magnesia) 30 Ml Susp 30 ML PO DAILY PRN for Constipation Metoprolol Succ (Toprol Xl) (Toprol-Xl) 50 Mg Tabcr 50 MG PO QAM, #30 TAB Nicotine (Eq Nicotine) 21 Mg/24 Hr Dis 1 PATCH TD DAILY Oxycodone/Acetaminophen 5MG/325MG (Percocet 5MG/325MG) Tab 1 TAB PO Q4H PRN for Pain, #18 TAB (This prescription has been renewed) PAIN Pantoprazole (Pantoprazole Sodium) 40 Mg Tab 40 MG PO QAM for 30 Days, #30 TAB Polyethylene (Miralax) 17 Gm Pow 17 GM PO DAILY PRN for Constipation Pregabalin (Lyrica) 25 Mg Cap 25 MG PO TID, CAP Sennosides-Docusate Sodium (Senokot S) 1 Tab Tab 1 TAB PO DAILY, TAB Sitagliptin (Januvia) 50 Mg Tab 100 MG PO DAILY TWO 50 MG TABLETS Sodium Phosphates (Fleet Enema Six Pack) 1 Brittany Brittany 1 DOSE OK DAILY PRN for Constipation Tamsulosin Hcl (Flomax) 0.4 Mg Cap 0.4 MG PO QAM, CAP Thiamine Hcl (Vitamin B-1) 100 Mg Tab 100 MG PO QPM Discontinued Medications: Aspirin (Aspirin) 325 Mg Tab 325 MG PO BID Chlordiazepoxide (Chlordiazepoxide HCl) 25 Mg Cap 50 MG PO Q6 PRN for Anxiety/Agitation, #10 CAP Admission Information HPI (per Admitting provider): Pt is 66 y/o M with PMH alcoholism, HTN, hyperlipidemia, BPH, DM insulin dependent, recent L hip arthroplasty presented to ER from [facility] with c/o diarrhea x 1 day. On 03/01/17 had elective L hip arthroplasty and had cardiac arrest intraoperatively, sent to ICU and stabilized went back to OR for completed hip arthroplasty by Dr Dee. Pt had ETOH withdrawal. Was discharged 03/08/17 to [facility]. Pt seen in ER yesterday after fall with negative hip x-ray for fracture. Pt states yesterday started having watery diarrhea and has had approx 20 episodes yesterday and multiple episodes today. Last night reported fever 101F. C/O aching pain across lower abdomen. Pt states having pain to L hip since surgery and since cardiac arrest having pain to anterior and lateral chest with movement. Reports some swelling to bilateral lower legs, doesn't think it is any worse. Reports hasn't had any ETOH since hospital d/c 03/08/17. He has been taking Ativan and Librium prn. Denies diaphoresis, N/V, hematochezia, GEORGE, dizziness, syncope, vision changes, neck pain, SOB, orthopnea, palpitations, cough, sore throat, choking, otalgia, rhinorrhea, paresthesias, weakness, extremity weakness, rashes, urinary symptoms. Today ER vitals: Temp: 38.6C, BP: 104/52, P: 82, R: 20, O2 sat: 93% on RA. WBC: 15, H/H 9.1/27.8 (previous on 03/05/17 hgb 8.8 post op). Na: 134, ma.5, negative troponin. CT abd/pelvis: diverticulosis left colon, wall thickening/ edema & pericolonic inflammation distal descending and proximal sigmoid colon. Although there is significant diverticular disease in this region, the length of involvement favors a nonspecific colitis. CT chest: No PE. trace bilateral pleural effusions with associated atelectasis. Numerous acute to subacute nondisplaced bilateral anterior rib fractures. No pneumothorax. 2.1 x 2.1 cm heavily calcified abnormality adjacent to or arising from the mid thoracic esophagus. Several indeterminate but low suspicion pulmonary nodules. A follow- up chest CT in 6 months is recommended. EKG: NSR, rate 79, no ST elevation noted. Was given flagyl 500mg po and NSS. Physical Exam (per Admitting): General Appearance: no apparent distress, + obese Head: normocephalic, atraumatic Eyes: normal inspection, PERRL, EOMI, sclerae normal ENT: hearing grossly normal, pharynx normal, + pertinent finding (mildly dry mucous membranes) Neck: supple, no JVD, trachea midline Respiratory/Chest: lungs clear, normal breath sounds, no respiratory distress, no accessory muscle use, + pertinent finding (tender to palpation entire anterior chest and bilateral ribs) Cardiovascular: regular rate, rhythm Abdomen/GI: normal bowel sounds, soft, + tenderness (LLQ, RLQ without guarding or rebound) Extremities/Musculoskelatal: no calf tenderness, + pedal edema (1+ bilaterally), + pertinent finding (left hip with dressing in place. limited ROM left hip secondary to discomfort. pedal pushes intact bilaterally. distal pulses intact bilaterally, sensation to light touch intact bilaterally, brisk capillary refill) Neurologic/Psych: alert, normal mood/affect, oriented x 3 Skin: warm/dry, + pertinent finding (+ecchymosis to bilateral arms) Hospital Course 66M with Hx L hip arthroplasty 03/01/17 with cardiac arrest intraoperatively, taken back to OR for completed repair, hx ETOH withdrawal and d/c [facility] on 03/08/17. Presents with onset >20 episodes watery diarrhea since one day duration with fever 38.6C, lower abdominal pain. WBC: 15.0. negative POC lactate. CT scan showed non specific colitis NON SPECIFIC COLITIS: possible infectious? presented with Diarrhea On Ct scan' c diff negative stopped fluids currently on po flagyl and cipro- completed 5 day course stool studies negative so far GI on board and appreciate inputs resolved HYPOMAGNESIA replace f/u labs. RIB PAIN/RIB FRACTURE ON CT scan most likely secondary CPR last admission, or fall yesterday pain control incentive spirometry S/P L HIP ARTHROPLASTY: Percocet prn pain f/u with ortho Anemia most likely acute blood loss from recent surgery h 7.9 03/15/17 s/p transfused 2 units hb 9.5today anemia workup as out patient as recently had cardiac arrest Lower extremity edema recent echo ok possible venous insufficiency will give Lasix to elevate legs while sleeping needs stockings pt/ot PULMONARY NODULE: CT Chest: 5. 2.1 x 2.1 cm heavily calcified abnormality adjacent to or arising from the mid thoracic esophagus. Out pt follow-up chest CT in 6 months is recommended ALCOHOLISM No ETOH use since last hospitalization Will monitor for ETOH withdrawal decreased Librium 12.5mg Q6h prn anxiety/agitation. stable DM, INSULIN DEPENDENT Hgb A1c: 7.8 on 03/01/17 NovoLog Sliding scale per protocol Lantus 16 units q hs Will monitor HTN on metoprolol will monitor. TOBACCO ABUSE nicotine patch smoking cessation discussed BPH Flomax. Morbid obesity nocturnal pulse ox study requiring 3lts oxygen while sleeping needs sleep study as out patient DVT PROPHYLAXIS lovenox SQ ASA 325 BID per ortho at discharge DISPOSITION discharge to rehab today Total time spent on discharge = 40MINUTES This includes examination of the patient, discharge planning, medication reconciliation, and communication with other providers. Discharge Instructions Discharge Instructions Date of Service Mar 18, 2017. Admission Reason for Admission: Colitis, Diarrhea, Fall Discharge Discharge Diagnosis / Problem: colitis, diarrhea Discharge Goals Goal(s): Decrease discomfort, Improve function Activity Recommendations Activity Level: Up Ad Anastasia . Additional Information Patient informed of condition: Yes Advance Directives: Yes DNR: No Level of Care: Acute Rehab Communicable Disease: No Prognosis: Stable Oxygen at (LPM): 3lts via nasal canula while sleeping Garcia Catheter: No Instructions / Follow-Up Instructions / Follow-Up FOLLOW UP WITH FAMILY DOCTOR ONE WEEK ON DISCHARGE FROM REHAB REQUIRING 3LTS VIA NASAL CANULA WHILE SLEEPING ON NOCTURNAL PULSE OX STUDY. NEEDS SLEEP STUDY OUT PATIENT WITH PCP REFERRAL. FOLLOWUP WITH ORTHOPEDICS EARLY NEXT WEEK( MONDAY) FOR STAPLE REMOVAL. CONTINUE DVT PROPHYLAXIS AT LEAST ONE MONTH POST RECENT HIP SURGERY.(UNTIL Mar). STOCKINGS DAILY FOR LOWER EXTREMITY EDEMA. FOLLOWUP WITH PCP WITH REPEAT CT CHEST IN 6 MONTHS FOR LUNG NODULE. Current Hospital Diet Patient's current hospital diet: Diabetes Type 2 Diet Discharge Diet Recommended Diet: AHA Diet (Heart Healthy), Diabetes Type 2 Diet Pending Studies Studies pending at discharge: no Physician Orders On Transfer Special Precautions: FALL AND ASPIRATION PRECAUTIONS Vital Signs: EVERY 8HRS Laboratory Results Hemoglobin A1c Test 03/01/17 18:00 Range/Units Estimated Average Glucose 177 mg/dl Hemoglobin A1c 7.8 H 4.5-5.6 % Medical Emergencies . Who to Call and When: Medical Emergencies: If at any time you feel your situation is an emergency, please call 911 immediately. . Non-Emergent Contact Non-Emergency issues call your: Primary Care Provider . . "Provider Documentation" section prepared by Guillermo Lang. . Core Measure Problem Core Measures: None
[2017-03-18 15:31] VITALS: BP 150/80; PULSE 70; TEMP 36.9; O2SAT 95
[2017-03-18 15:46] VITALS: BP 122/71; PULSE 62; TEMP 36.4; O2SAT 98
== END 2017-03-18 16:48 | DRG 392 ==
LOC: EDBD 09:15 → C.EDB 09:16 → C.2T 12:51 → ENRESERV 15:10 → C.MS2W 03-17 13:16
PROVIDERS: ADMIT Hospitalist; ATTEND Internal Medicine
DX: K52.9 Noninfective gastroenteritis and colitis, unspecified (principal); D62 Acute posthemorrhagic anemia; S22.43XA Multiple fractures of ribs, bilateral, initial encounter for closed fracture; Z68.41 Body mass index [BMI] 40.0-44.9, adult; W05.0XXA Fall from non-moving wheelchair, initial encounter; Z96.642 Presence of left artificial hip joint; E83.42 Hypomagnesemia; F10.20 Alcohol dependence, uncomplicated; E11.9 Type 2 diabetes mellitus without complications; R91.1 Solitary pulmonary nodule; R16.2 Hepatomegaly with splenomegaly, not elsewhere classified; I10 Essential (primary) hypertension; N40.0 Benign prostatic hyperplasia without lower urinary tract symptoms; E78.5 Hyperlipidemia, unspecified; F17.200 Nicotine dependence, unspecified, uncomplicated; E66.01 Morbid (severe) obesity due to excess calories; Z86.74 Personal history of sudden cardiac arrest; Z79.01 Long term (current) use of anticoagulants; Z79.4 Long term (current) use of insulin; Z79.82 Long term (current) use of aspirin; Z79.899 Other long term (current) drug therapy; Z83.3 Family history of diabetes mellitus; Z82.3 Family history of stroke; Z82.5 Family history of asthma and other chronic lower respiratory diseases; M25.552 Pain in left hip; Y92.192 Bathroom in other specified residential institution as the place of occurrence of the external cause; Z98.890 Other specified postprocedural states

== ENCOUNTER → 2017-04-12 | Outpatient (CLI) | payer BC ==
[~2017-04-12] MED LIST changes: +ACET-1256 PO; -ASPEC325 PO; +ASPI-320 PO; +ASPI81TA28 PO; +ATV/1 PO; -ATV1 PO; +BISA10SU5 PR; +COLC0.6T54 PO; +DEXT40GE20 TOP; -FOLI1TAB7 PO; +FOLI1TAB8 PO; +FRS/80 PO; +GLGKIT SC; -LBR25 PO; -METO50TA7 PO; +METO50TA8 PO; +MOML PO; +MULT-1042 PO; +OXGN; +PANT1TAB4 PO; +POTA10TA PO; +PREG75CA PO; -PRT40 PO; -SITA100T3 PO; +SITA50TA3 PO; +SLWMEC PO; +SODI1ENE PR; +SPIR25TA PO; +THIA100T10 PO; -THM100 PO
--- NOTE | 2017-04-13 06:56 | SPLIT NIGHT TECHNICIAN REPORT ---
[facility] Split Night Polysomnogram - Supervisor Logging Report Study date: 04/12/2017 Referring Physician: Milagros NG Name: SLY POOLE Supervisor Logging: ROCIO Del Cid. Date of : 1950 Height: 66 years, Height Sex: Male Weight: Age: 66 BMI: Medications: ATORVASTATIN 10 MG, CHLORDIAZEPOXIDE 25 MG, DOCUSATE, FOLIC ACID, FUROSEMIDE, INSULIN, LORAZEPAM 1 MG, METOPROLOL 50 MG, PANTOPRAZOLE 40 MG, PREDNISONE 20 MG, PREGABALIN, TAMSULOSIN, THIAMINE Patient History PATIENT HAS HISTORY OF HYPERTENSIVE HEART DISEASE, ALCOHOL ABUSE, GAIT, AND HENRIK. ALSO HAS HISTORY OF SNORING AND EXCESSIVE DAYTIME SLEEPINESS. HE IS HERE TODAY FOR AN EVALUATION FOR HENRIK. ESS = 19 RM 8 Parameters Monitored NPSG: E1-M2, E2-M1, Fp1-M2, Fp2-M1, F3-M2, F4-M2, F4-M1, C3-M2, C4-M2, C4-M1, O1-M2, O2-M2, O2-M1, T3-M2, T4-M1, P3-M2, P4-M1, CHIN1, CHIN2, HR, EKG, Legs, PFLOW, SNOR, FLOW, CFLOW, Tidal Volume, THOR, ABDO, SpO2, PLTH, CPRESS, ETCO2 Wave, ETCO2, pH SLEEP SUMMARY DATA DIAGNOSTIC TREATMENT Lights Out: 10:40:12 PM 1:56:12 AM Lights On: 1:42:12 AM 5:52:42 AM Total Recording Time (TRT): 182.5 min. 237.0 min. Total Sleep Time (TST): 79.5 min. 181.0 min. NREM Time: 79.5 min. 125.0 min. REM Time: 0.0 min. 56.0 min. Sleep Period Time (SPT): 98.0 min. 228.5 min. Sleep Efficiency (SE): 44 % 77 % Sleep Latency: 60.5 min. 6.0 min. Arousal Index: 30.2 13.3 PAP Treatment Levels: 4, 6, 8, 10, 12, 13, 14, 15, 16, 18 * Optimal Pressure(s) SLEEP STAGING DATA DIAGNOSTIC TREATMENT Duration (min) TST % Duration (min) TST % Stage Wake: 103.0 min. -- 56.0 min. -- WASO: 42.0 min. -- 47.5 min. -- NREM: 79.5 min. 100 % 125.0 min. 69 % Stage N1: 19.5 min. 25 % 18.5 min. 10 % Stage N2: 60.0 min. 75 % 99.0 min. 55 % Stage N3: 0.0 min. 0 % 7.5 min. 4 % REM: 0.0 min. 0 % 56.0 min. 31 % POSITIONAL DATA Event Count Index Event Count Index Supine: 80 60 67 18.9 Supine NREM: 80 60.4 44 17.3 Supine REM: N/A N/A 23 23 Non-Supine: N/A N/A N/A N/A Non-Supine NREM: N/A N/A N/A N/A Non-Supine REM: N/A N/A N/A N/A AROUSAL SUMMARY DATA: Event Count Index Event Count Index Apnea Arousals: 8 8.3 3 2.0 Hypopnea Arousals: 23 17.4 10 3.3 Snore Arousals: 5 3.8 0 0.0 PLM Arousals: 4 3.0 6 2.0 Non-Specific Arousals: 9 6.8 15 5.0 Total Arousals: 40 30.2 40 13.3 MYOCLONUS (PLM) Event Count Index Event Count Index PLM: 41 30.9 169 56.0 PLM AROUSAL: 4 3.0 6 2.0 PLM W/O AROUSAL 41 30.9 163 54.0 PLM W/RESP EVENT 6 0.0 13 0.0 MYOCLONUS (PLM) Event Count Index Event Count Index LM: 1 29.4 39 12.9 LM AROUSAL: 1 0.8 4 1.3 LM W/O AROUSAL LM W/RESP EVENT LM NON SPECIFIC 53 40.0 176 58.3 HEART RATE DATA DIAGNOSTIC TREATMENT Sleep (bpm): 73 64 REM (bpm): N/A 88 NREM (bpm): 89 92 Tachycardia Count: 0 0 Tachycardia Duration: 0.00 0 Bradycardia Count: 0 0 Bradycardia Duration: 0.00 0 DIAGNOSTIC PORTION TREATMENT PORTION RESPIRATORY DATA Event Count Index Event Count Index AHI: -- 60.4 -- 18.9 RDI: -- 60.4 -- 22 Obstructive Apnea: 11 8.3 4 1.3 Central Apnea: 0 0.0 2 0.7 Mixed Apnea: 0 0.0 0 0.0 Hypopnea: 69 52.1 51 16.9 RERA: 0 0.0 10 3.3 Total Apneas: 11 8.3 6 2.0 RESPIRATORY DATA REM NREM SLEEP REM NREM SLEEP Supine Position: Obstructive Apneas: N/A 11 11 0 4 4 Central Apneas: N/A 0 0 0 2 2 Mixed Apneas: N/A 0 0 0 0 0 Hypopneas: N/A 69 69 21 30 51 RERA N/A 0 0 2 8 10 Total Supine Events: N/A 80 80 23 44 67 Supine AHI: N/A 60.4 60 23 17.3 18.9 Supine RDI: N/A 60.4 60.4 24.6 21.1 22.2 REM NREM SLEEP REM NREM SLEEP Non-Supine Position: Obstructive Apneas: N/A N/A N/A N/A N/A N/A Central Apneas: N/A N/A N/A N/A N/A N/A Mixed Apneas: N/A N/A N/A N/A N/A N/A Hypopneas: N/A N/A N/A N/A N/A N/A RERA N/A N/A N/A N/A N/A N/A Total Supine Events: N/A N/A N/A N/A N/A N/A Supine AHI: N/A N/A N/A N/A N/A N/A Supine RDI: N/A N/A N/A N/A N/A N/A OXYGEN DESTAURATION DATA: Event Count Index Event Count Index REM Desaturations: N/A N/A 21 22.5 NREM Desaturations: 77 58.1 35 16.8 SNORE DATA DIAGNOSTIC TREATMENT Snore Time: 4.0 2:02:12 AM Snore TST%: 3 3 Snore Arousal Count: 5 0 Snore Arousal Index: 3.8 0.0 Desaturation Event Summary: Minimum %SpO2 Event Count Mean/Min/Max Duration(sec.) Desaturation Index % Time In Bed > 90 113 31.0 / 9.3 / 99.0 24.8 66.6 86 - 90 78 25.9 / 9.3 / 76.6 44.4 25.7 81 - 85 6 52.4 / 9.5 / 86.4 19.8 4.4 76 - 80 6 39.7 / 9.5 / 81.5 33.0 2.7 71 - 75 0 N/A 0.0 0.6 66 - 70 0 N/A 0.0 0.0 61 - 65 0 N/A 0.0 0.0 56 - 60 0 N/A 0.0 0.0 51 - 55 0 N/A 0.0 0.0 < 50 0 N/A 0.0 0.0 OXYGEN SATURATION DATA DIAGNOSTIC TREATMENT SpO2 Mean Sleep: 89 % 91 % SpO2 Mean REM: N/A % 88 % SpO2 Mean NREM: 89 % 92 % SpO2 Minimum Sleep: 82 % 71 % SpO2 Minimum REM: N/A % 71 % SpO2 Minimum NREM: 82 % 82 % Time Below 90% (TST): 40.0 37.8 Time Below 88% (TST): 20.8 28.6 Total REM NREM Awake <50% 0.0 min. 0.0 min. 0.0 min. 0.0 min. 51 - 60% 0.0 min. 0.0 min. 0.0 min. 0.0 min. 61 - 70% 0.0 min. 0.0 min. 0.0 min. 0.0 min. 71 - 80% 13.6 min. 13.4 min. 0.0 min. 0.1 min. 81 - 90% 123.6 min. 13.0 min. 76.2 min. 34.4 min. 91 - 100% 273.3 min. 29.5 min. 128.3 min. 115.5 min. Average 91 88 91 92 Minimum SpO2 71 71 82 80 Desaturation Event Index 21.9 22.5 32.9 8.4 # Desat. Events below 89% 126 17 96 13 Time(%) with Saturation below 89% 18.6 5.6 9.6 3.5 Time(min.) with Saturation below 89% 76.4 22.9 39.3 14.2 Recording Supervisor Logging Comments: Mr. Poole slept in the supine positions. PVC's noted. Leg movements noted. No bruxism noted. Snoring was noted and scored as a 3 on a scale of 1 through 5. (0=no snoring, 5=snoring loud enough to be heard through a closed door or down the recinos way) At 1:42 am Mr. Poole has met specific Split-Night criteria during the diagnostic portion of this study. CPAP was initiated at +4 CMH2O and up-titrated to a level of +18 CMH2O, which nearly eliminated all respiratory events and snoring. A Resmed mirage Quattro full face size large mask was used during titration Mr. Poole awoke to use the restroom 2 times during the night. Mr. Poole stated I slept as well as I do when I am in my own bed. The final report will be interpreted and signed by a sleep physician. The completed physician report will then be placed in the patient medical record. Therapy Event: Therapy (cm H20) 0 4 6 8 10 12 Total Time at Pressure (min.) 182.0 12.0 6.7 6.9 12.3 6.7 TST at Pressure (min.) 79.5 4.5 5.7 6.4 12.3 6.7 # Periods 1 1 1 1 1 1 Sleep Onset (min.) 60.5 6.0 0.0 0.0 0.0 0.0 REM Onset (min.) N/A N/A N/A N/A 10.4 0.0 Sleep Efficiency % 43 37 85 92 100 100 Wakefulness (%) 56.3 62.3 14.9 7.3 0.0 0.0 Wakefulness (min.) 102.5 7.5 1.0 0.5 0.0 0.0 NREM 1 (%) 10.7 20.8 14.9 14.6 0.0 0.0 NREM 1 (min.) 19.5 2.5 1.0 1.0 0.0 0.0 NREM 2 (%) 33.0 16.9 70.2 78.1 84.8 0.0 NREM 2 (min.) 60.0 2.0 4.7 5.4 10.4 0.0 NREM 3 (%) 0.0 0.0 0.0 0.0 0.0 0.0 NREM 3 (min.) 0.0 0.0 0.0 0.0 0.0 0.0 REM (%) 0.0 0.0 0.0 0.0 15.2 100.0 REM (min.) 0.0 0.0 0.0 0.0 1.9 6.7 # Arousals 40 4 3 4 3 1 Arousal Index 30.2 53.0 31.5 37.8 14.7 9.0 # Snore 210 1 10 16 44 4 Snore Index 158.5 13.2 105.0 151.1 215.2 36.0 AHI 60.4 66.2 94.5 56.7 58.7 36.0 AHI Supine 60.4 66.2 94.5 56.7 58.7 36.0 AHI Non-Supine N/A N/A N/A N/A N/A N/A NREM AHI 60.4 66.2 94.5 56.7 57.7 N/A REM AHI N/A N/A N/A N/A 64.5 36.0 RDI 60.4 66.2 94.5 56.7 58.7 36.0 # Obstructive 11 2 1 1 0 0 # Central Ap 0 1 1 0 0 0 # Mixed 0 0 0 0 0 0 # Hypopneas 69 2 7 5 12 4 RERAS 0 0 0 0 0 0 Total Respiratory Events 80 5 9 6 12 4 Time Below SpO2 89.00% (min.) 29.3 2.0 2.7 1.8 4.2 6.2 Mean NREM SpO2 (%) 89 89 89 90 90 N/A Mean REM SpO2 (%) N/A N/A N/A N/A 87 79 Mean Sleep SpO2 (%) 89 89 89 90 90 79 Min NREM SpO2 (%) 82 84 82 85 84 N/A Min REM SpO2 (%) N/A N/A N/A N/A 78 71 Position Supine (min.) 79.5 4.5 5.7 6.4 12.3 6.7 Position Non-supine (min.) 0.0 0.0 0.0 0.0 0.0 0.0 LM Index Sleep 60.4 26.5 42.0 132.2 107.6 27.0 LM Index NREM 60.4 26.5 42.0 132.2 126.9 N/A LM Index REM N/A N/A N/A N/A 0.0 27.0 Mean Heart Rate (bpm) 73 64 65 64 65 71 Min Heart Rate (bpm) 62 61 60 60 60 43 Therapy (cm H20) 13 14 15 16 18 Total Time at Pressure (min.) 12.5 11.8 43.5 52.3 71.9 TST at Pressure (min.) 9.5 10.3 42.0 19.3 64.4 # Periods 1 1 1 1 1 Sleep Onset (min.) 0.0 0.0 0.0 0.0 0.0 REM Onset (min.) 0.0 N/A 38.2 0.0 37.9 Sleep Efficiency % 76 87 96 37 89 Wakefulness (%) 24.0 12.7 3.5 63.0 10.4 Wakefulness (min.) 3.0 1.5 1.5 33.0 7.5 NREM 1 (%) 4.3 12.4 4.6 14.3 3.5 NREM 1 (min.) 0.5 1.5 2.0 7.5 2.5 NREM 2 (%) 0.0 74.8 67.2 13.6 43.7 NREM 2 (min.) 0.0 8.8 29.2 7.1 31.4 NREM 3 (%) 0.0 0.0 12.7 0.0 2.8 NREM 3 (min.) 0.0 0.0 5.5 0.0 2.0 REM (%) 71.7 0.0 12.1 9.0 39.6 REM (min.) 9.0 0.0 5.3 4.7 28.5 # Arousals 1 7 3 9 5 Arousal Index 6.3 40.9 4.3 27.9 4.7 # Snore 1 2 1 0 12 Snore Index 6.3 11.7 1.4 0.0 11.2 AHI 37.9 17.5 4.3 15.5 3.7 AHI Supine 37.9 17.5 4.3 15.5 3.7 AHI Non-Supine N/A N/A N/A N/A N/A NREM AHI 0.0 17.5 0.0 12.3 0.0 REM AHI 40.2 N/A 34.2 25.4 8.4 RDI 44.2 40.9 8.6 21.7 3.7 # Obstructive 0 0 0 0 0 # Central Ap 0 0 0 0 0 # Mixed 0 0 0 0 0 # Hypopneas 6 3 3 5 4 RERAS 1 4 3 2 0 Total Respiratory Events 7 7 6 7 4 Time Below SpO2 89.00% (min.) 8.5 0.0 4.4 3.2 0.1 Mean NREM SpO2 (%) 93 92 92 92 93 Mean REM SpO2 (%) 79 N/A 83 86 94 Mean Sleep SpO2 (%) 80 92 91 91 93 Min NREM SpO2 (%) 91 89 90 83 91 Min REM SpO2 (%) 72 N/A 78 79 88 Position Supine (min.) 9.5 10.3 42.0 19.3 64.4 Position Non-supine (min.) 0.0 0.0 0.0 0.0 0.0 LM Index Sleep 6.3 128.5 164.4 55.8 6.5 LM Index NREM 0.0 128.5 186.4 73.9 6.7 LM Index REM 6.7 N/A 11.4 0.0 6.3 Mean Heart Rate (bpm) 70 67 66 64 59 Min Heart Rate (bpm) 39 64 42 44 50
--- NOTE | 2017-04-15 08:47 | Sleep Study ---
Sleep Study Report Date of Service: 04/12/2017 Sleep Study Report Clinical data: The patient is a 66-year-old male referred for a sleep study by BERENICE Flores. Patient has a history of snoring and excessive daytime somnolence. In the relatively recent past he had a left total hip arthroplasty complicated by an intraoperative arrest. He has hypertensive heart disease. Obstructive sleep apnea is suspected. Patient has an [place] Sleepiness Scale score of 19 out of a possible 24 suggesting severe daytime somnolence. This study was an in -lab split night sleep study. Sleep architecture: During the diagnostic portion of the study the total sleep period was 98 minutes. The total sleep time was 79.5 minutes. The sleep efficiency was severely reduced to 44 percent. The sleep latency was severely prolonged at 60.5 minutes. Sleep consisted of stage N1 25 percent, stage N2 75 percent, stage N3 0 percent, stage REM 0 percent. During the therapeutic portion of the study the patient was treated with nasal CPAP. The total sleep period was 228.5 minutes. The total sleep time was 181 minutes. The sleep efficiency was moderately reduced to 77 percent. The sleep latency was 6 minutes. Sleep consisted of stage N1 10 percent, stage N2 55 percent, stage N3 4 percent, stage REM 31 percent. Arousal data: During the diagnostic portion of the study the patient had a total of 40 arousals including 8 apnea arousals, 23 hypopnea arousals, 5 snoring arousals, 4 PLM arousals, and 9 nonspecific arousals. The arousal index was 30.2. During the therapeutic portion of the study the patient had a total of 34 arousals including 3 apnea arousals, 10 hypopnea arousals, 6 PLM arousals, and 15 nonspecific arousals. The arousal index was 13.3. PLM data: During the diagnostic portion of the study the patient had 41 periodic limb movements for PLM index of 30.9. There were 4 arousals associated with limb movements for a PLM arousal index of 3.0. During the therapeutic portion of the study the patient had 169 periodic limb movements for an index of 56. There were 6 arousals associated with limb movements for a PLM arousal index of 2.0. EKG: The patient had an underlying normal sinus rhythm. He had frequent PVCs. There were prolonged episodes of quadrigeminy. At least 1 ventricular couplet was noted. The cardiac rates ranged from 64-92 beats per minute. Respiratory data: During the diagnostic portion of the study the patient had a total of 80 respiratory events including 11 obstructive apneas and 69 hypopneas. Hypopneas were scored according to the 4 percent desaturation rule. The apnea-hypopnea index was severely elevated at 60.4 events per hour. During the therapeutic portion of the study when the patient was treated with nasal CPAP, there were a total of 57 respiratory events including 4 obstructive apneas, 2 central apneas, and 51 hypopneas. There were also 6 RERAs. The apnea -hypopnea index was 18.9. At the final pressure of 18 centimeters his apnea- hypopnea index was only 3.7 events per hour. Oximetry data: During the diagnostic portion of the study the mean saturation was 89 percent. The minimum saturation was 82 percent. There was a total of 20.8 minutes with saturations less than 88 percent. During the therapeutic portion of the study the mean saturation was 91 percent. The minimum saturation was 71 percent. There was a total of 28.6 minutes with saturations less than 88 percent. Ranch Supervisor comments: The patient slept in the supine position. PVCs were noted. Leg movements noted. No bruxism noted. Snoring was noted and scored as a 3 on a scale of 1 through 5. At 1:42 a.m. the patient met specific split night criteria during the diagnostic portion of the study. CPAP was initiated at 4 centimeters and up titrated to a level of 18 centimeters which nearly eliminated all respiratory events and snoring. A ResMed med Mirage Quattro full face mask size large was used during titration. The patient awaken to use the restroom 2 times during the night. Impressions: 1. Severe obstructive sleep apnea-significantly improved with nasal CPAP at 18 centimeters 2. Cardiac arrhythmia-PVCs Comments: The patient had severe sleep apnea. This was much improved with nasal CPAP. His sleep efficiency improved. The frequency of arousals decreased substantially. There was an increase in limb movements with treatment with nasal CPAP. This is not unexpected with resolution of sleep disordered breathing. In the 2nd half of the night his sleep became much more consolidated. Recommendations: 1. It is suggested that the patient be started on nasal CPAP at 18 centimeters. 2. It is suggested that he be ordered a ResMed med Mirage Quattro full face mask size large. 3. The patient has a history of morbid obesity. Weight loss would be advised. 4. If possible the patient should avoid sleeping in the supine position. Typically there is more respiratory events while supine. 5. The patient should be seen in follow-up between day 31 day 90 after receiving his CPAP for appropriate insurance follow-up. Copies To 1: Derek Albright DO; Matilde Mauricio D.O.; Milagros Slater C.R.N.P.
== END | disposition home or self-care (01) ==
LOC: C.NEUR 20:00
PROVIDERS: ATTEND Nurse Practitioner
DX: G47.33 Obstructive sleep apnea (adult) (pediatric) (principal)

== ENCOUNTER 2023-06-09 08:13 | Inpatient (IN) ==
--- NOTE | 2023-05-24 10:23 | PAT Medication Instructions ---
Medication Instructions Date of Service May 24, 2023 Home Medications Medication Instructions Recorded CPAP Machine #1 ea 09/21/22 folic acid 1 mg tablet 1 mg PO QAM tamsulosin 0.4 mg capsule 0.8 mg PO QAM acetaminophen 500 mg tablet 1,000 mg PO Q6H PRN Pain cholecalciferol (vitamin D3) 50 mcg (2,000 unit) tablet 2,000 unit PO QAM fluocinonide 0.05 % topical ointment 1 applic topical BID PRN Rash hydrocodone 10 mg-acetaminophen 325 mg tablet 1 tab PO Q6H PRN Pain lorazepam 0.5 mg tablet 0.5 mg PO DAILY PRN Anxiety pantoprazole 40 mg tablet,delayed release 40 mg PO QAM polyethylene glycol 3350 17 gram/dose oral powder (Miralax) 17 g PO DAILY PRN Constipation pregabalin 100 mg capsule 100 mg PO TID spironolactone 25 mg tablet 12.5 mg PO QAM verapamil 120 mg tablet 120 mg PO Q OTHER DAY torsemide 100 mg tablet 150 mg PO QAM atorvastatin 40 mg tablet 40 mg PO QAM semaglutide 0.25 mg or 0.5 mg (2 mg/3 mL) subcutaneous pen injector (Ozempic) 0.25 mg subcut Q7D methotrexate sodium 2.5 mg tablet 15 mg PO WK cyanocobalamin (vitamin B-12) 5,000 mcg sublingual tablet (Vitamin B-12) 5,000 mcg sublingual QAM metoprolol succinate 25 mg tablet,extended release 24 hr (Toprol XL) 25 mg PO QAM modafinil 200 mg tablet (Provigil) 200 mg PO BID PRN sleepiness sertraline 150 mg capsule 150 mg PO QAM Continue as directed verapamil 120 mg tablet 120 mg PO Q OTHER DAY ASK your prescriber and surgeon methotrexate sodium 2.5 mg tablet 15 mg PO WK (typically stop 7 days before surgery but check with prescriber first) STOP taking 7 days before surgery semaglutide 0.25 mg or 0.5 mg (2 mg/3 mL) subcutaneous pen injector (Ozempic) 0.25 mg subcut Q7D STOP taking 24 hours before surgery fluocinonide 0.05 % topical ointment 1 applic topical BID PRN Rash DO NOT take the morning of surgery folic acid 1 mg tablet 1 mg PO QAM cholecalciferol (vitamin D3) 50 mcg (2,000 unit) tablet 2,000 unit PO QAM polyethylene glycol 3350 17 gram/dose oral powder (Miralax) 17 g PO DAILY PRN Constipation spironolactone 25 mg tablet 12.5 mg PO QAM torsemide 100 mg tablet 150 mg PO QAM cyanocobalamin (vitamin B-12) 5,000 mcg sublingual tablet (Vitamin B-12) 5,000 mcg sublingual QAM modafinil 200 mg tablet (Provigil) 200 mg PO BID PRN sleepiness Take morning of surgery With a small sip of water, OTHERWISE NOTHING TO EAT OR DRINK AFTER MIDNIGHT: tamsulosin 0.4 mg capsule 0.8 mg PO QAM acetaminophen 500 mg tablet 1,000 mg PO Q6H PRN Pain (if needed) hydrocodone 10 mg-acetaminophen 325 mg tablet 1 tab PO Q6H PRN Pain (if needed) lorazepam 0.5 mg tablet 0.5 mg PO DAILY PRN Anxiety (if needed) pantoprazole 40 mg tablet,delayed release 40 mg PO QAM pregabalin 100 mg capsule 100 mg PO TID atorvastatin 40 mg tablet 40 mg PO QAM metoprolol succinate 25 mg tablet,extended release 24 hr (Toprol XL) 25 mg PO QA M sertraline 150 mg capsule 150 mg PO QAM Take evening before surgery acetaminophen 500 mg tablet 1,000 mg PO Q6H PRN Pain (if needed) hydrocodone 10 mg-acetaminophen 325 mg tablet 1 tab PO Q6H PRN Pain (if needed) lorazepam 0.5 mg tablet 0.5 mg PO DAILY PRN Anxiety (if needed) polyethylene glycol 3350 17 gram/dose oral powder (Miralax) 17 g PO DAILY PRN Constipation (if needed) pregabalin 100 mg capsule 100 mg PO TID modafinil 200 mg tablet (Provigil) 200 mg PO BID PRN sleepiness (if needed) Other Notes If you have any questions please call us at [phone] or [phone] or [phone] or [phone]
--- NOTE | 2023-05-26 10:51 | Anesthesiology Consultation ---
Date of Service May 26, 2023 Assessment & Plan (1) Encounter for pre-operative examination: - Check BSG AM DOS - Infectious disease screening: Per assessment on 05/26/23: No known infectious disease contacts or current infectious disease symptoms. No noted recent Covid positive test result. - Outpatient joint assessment: Pt currently scheduled for inpatient pathway. If surgeon requests review for outpatient joint pathway, patient is not recommended candidate for outpatient joint program from anesthesia standpoint. - Ozempic instructions: Patient takes on Sundays. Patient informed at PAT visit to stop 7 days prior to surgery- voiced understanding. DOS 06/09/23. Advised last dose Ozempic to be 05/28/23. - PCP visit (05/05/23): "..Urinary frequency.. UA negative. Culture sent.. Patient follows with cardiology.. no current issues.. Pulmonary hypertension.. has been stable.. Chronic obstructive pulmonary disease.. No current issues. Weight loss has helped" - Anemia: Surgery was originally scheduled for 12/2022 but postponed due to anemia worsened from baseline. Has been following closely since with [facility] heme/onc who recommended ideally patient's hgb improving to at least 10 prior to orthopedic surgery. Most recent labs 05/19/23 with hgb at 10.4 (stable from 05/04/23 hgb at 10.3). Patient last seen by [facility] heme/onc 05/19/23.. "Cause of anemia is likely multifactorial including ACD/AI, renal insufficiency, andiron deficiency.. With improvement in Hgb >10 no contraindication from hematology standpoint for patient to move forward with planned left knee replacement.. Will continue weekly AMY at this time at current dose.Will increase goal Hgb to 11 to maintain Hgb in 10 range for upcoming surgery. Order also placed for IV Venofer 300 mg x 2 doses 14 days apart. Repeat colonoscopy due May 2023" > At anesthesiologist discretion DOS if updated CBC needed preoperatively from their perspective. - Cardiology note (01/11/23): "He had a resting echocardiogram performed 01/10/2023. The left ventricular systolic function is normal. Compared to the previous study performed in 2021, the degree of his aortic valve stenosis has pr ogressed to a subtle degree, moderate aortic valve stenosis is now present. His nuclear stress test performed today revealed normal left ventricular systolic function, and no evidence of inducible ischemia. Patient had recently been seen by BERENICE Mackenzie in preoperative assessment, and stable cardiac signs and symptoms noted that time. Per my brief telephone interview with the patient today, his only ongoing complaint is severe arthritis pain of his knees. Patient is stable from a cardiology standpoint to proceed with knee replacement. Patient has had past issues with sedation which have been discussed, and cautious attention to be paid with regards to airway management and monitoring his cardiac rhythm. I anticipate a low risk of perioperative cardiac complication. I recommend a repeat echocardiogram at a 1 year interval and I will place the order for that." - Moderate aortic stenosis (per 12/2022 Echo): At anesthesiologist discretion DOS regarding type of anesthesia to be used - Hx anesthesia/surgery complication: * Left DANY anterior (03/01/17): SAB at L3-4 at [facility] > Per [facility] discharge summary (03/08/17): Intraoperative bradycardia/unresponsive/hypotensive > CPR begun/epi > wide complex tachycardia s/p synchronized cardioversion shocks- transferred to ICU intubated. Stabilized next day and went back to OR to complete DANY. Tolerated procedure okay and sent back to ICU (extubated next day). Hx heavy ETOH use noted. * Noted per cardiology 12/2021, "In retrospect, apnea and hypoxia are felt to of been the likely underlying root cause and I would recommend vigilant cautious attention be paid with regards to managing his airway." * Pt has had anesthesia since (colonoscopy 2018, B/L cataracts 06/2022) without similar issue. Chart Review Chart Review: Acceptable Risk for Surgery (pending evaluation DOS) and Patient seen in Pre Admission Testing Teaching & Discussion Pre-Anesthesia Teaching/Discussion Notes: Instructed NPO after midnight before surgery,except medications with 15 cc of water. Medication instructions provided according to the PAT guidelines. History Surgery Operation Date: 06/09/23 11:05 Proposed Procedures p Left Total Knee Arthroplasty - Arian Dee DO Height/Weight Height: 5 ft 10 in Weight: 91.6 kg Allergies Allergy/AdvReac Type Severity Reaction Status Date / Time No Known Allergies Allergy Verified 05/24/23 08:33 Medications Home Medications Medication Instructions Recorded Confirmed Last Taken folic acid 1 mg tablet 1 mg PO QAM 12/10/18 05/24/23 07/18/22 tamsulosin 0.4 mg capsule 0.8 mg PO QAM #30 caps 12/10/18 05/24/23 07/18/22 acetaminophen 500 mg tablet 1,000 mg PO Q6H PRN Pain 01/30/19 05/24/23 06/08/22 08:00 cholecalciferol (vitamin D3) 50 2,000 unit PO QAM 01/30/19 05/24/23 07/18/22 mcg (2,000 unit) tablet fluocinonide 0.05 % topical 1 applic topical BID PRN Rash 01/30/19 05/24/23 06/08/22 08:00 ointment hydrocodone 10 mg-acetaminophen 1 tab PO Q6H PRN Pain 01/30/19 05/24/23 06/08/22 14:00 325 mg tablet lorazepam 0.5 mg tablet 0.5 mg PO DAILY PRN Anxiety 01/30/19 05/24/23 Unknown pantoprazole 40 mg tablet,delayed 40 mg PO QAM 01/30/19 05/24/23 07/18/22 release polyethylene glycol 3350 17 17 g PO DAILY PRN Constipation 01/30/19 05/24/23 06/09/22 01:30 gram/dose oral powder (Miralax) pregabalin 100 mg capsule 100 mg PO TID 01/30/19 05/24/23 07/18/22 spironolactone 25 mg tablet 12.5 mg PO QAM 01/30/19 05/24/23 07/18/22 verapamil 120 mg tablet 120 mg PO Q OTHER DAY 01/30/19 05/24/23 06/08/22 08:00 torsemide 100 mg tablet 150 mg PO QAM 12/25/19 05/24/23 07/18/22 atorvastatin 40 mg tablet 40 mg PO QAM 06/06/22 05/24/23 07/18/22 semaglutide 0.25 mg or 0.5 mg (2 0.25 mg subcut Q7D 06/06/22 05/24/23 06/06/22 08:00 mg/3 mL) subcutaneous pen injector (Ozempic) CPAP Machine #1 ea 09/21/22 11/15/22 Unknown cyanocobalamin (vitamin B-12) 5,000 mcg sublingual QAM 05/24/23 05/24/23 Unknown 5,000 mcg sublingual tablet (Vitamin B-12) metoprolol succinate 25 mg 25 mg PO QAM 05/24/23 05/24/23 Unknown tablet,extended release 24 hr (Toprol XL) modafinil 200 mg tablet (Provigil) 200 mg PO BID PRN sleepiness 05/24/23 05/24/23 Unknown sertraline 150 mg capsule 150 mg PO QAM 05/24/23 05/24/23 Unknown Past Medical History Medical History Anxiety Aortic stenosis Echo 12/2022: Moderate aortic stenosis Arthritis Cardiac arrhythmia Per [facility] discharge summary (03/08/17): Intraoperative bradycardia/unresponsive/hypotensive during Left DANY > CPR begun/epi > wide complex tachycardia s/p synchronized cardioversion shocks- transferred to ICU intubated. Stabilized next day and went back to OR to complete DANY. Tolerated procedure okay and sent back to ICU (extubated next day). Hx heavy ETOH use noted. Pt has had anesthesia since (colonoscopy 2018, B/L cataracts 06/2022) without issue Follows with Dr. Remy Chronic anemia Iron deficiency Following closely with [facility] heme/onc, "Cause of anemia is likely multifactorial including ACD/AI, renal insufficiency, andiron deficiency" Chronic kidney disease (CKD), stage III (moderate) Diabetes mellitus, type 2 Diabetic peripheral neuropathy associated with type 2 diabetes mellitus Diverticular disease Hearing deficit hearing aids b/l History of anesthesia reaction during left DANY 2017 @ [facility] > Per [facility] discharge summary (03/08/17): Intraoperative bradycardia/unresponsive/hypotensive > CPR begun/epi > wide complex tachycardia s/p synchronized cardioversion shocks- transferred to ICU intubated. Stabilized next day and went back to OR to complete DANY. Tolerated procedure okay and sent back to ICU (extubated next day). Hx heavy ETOH use noted. Hyperlipidemia Hypertension Morbid obesity HENRIK (obstructive sleep apnea) CPAP (current occasional use, spoke with patient at PAT visit 05/26/23- patient voiced that he will plan to be compliant prior to DOS) Personal history of diabetic foot ulcer PMR (polymyalgia rheumatica) Pseudogout hx Spinal stenosis Exercise / Class Metabolic Activity III < 4 Walking/Shop/Light housework (Decreased ambulation in setting of extreme worsening of knee pain) Past Family History Family History Mother Family history of diabetes mellitus Brother Family history of diabetes mellitus Sister Family history of diabetes mellitus Other No family history of adverse response to anesthesia Past Surgical History Surgical History History of arthroscopy of left knee History of carpal tunnel surgery of right wrist History of colonoscopy History of esophagogastroduodenoscopy (EGD) History of left knee surgery History of lumbar spinal fusion History of right cataract surgery History of tooth extraction partial upper and lower denture History of total left hip replacement Left DANY anterior (03/01/17): SAB at L3-4 at [facility] > Per [facility] discharge summary (03/08/17): Intraoperative bradycardia/unresponsive/hypotensive > CPR begun/epi > wide complex tachycardia s/p synchronized cardioversion shocks- transferred to ICU intubated. Stabilized next day and went back to OR to complete DANY. Tolerated procedure okay and sent back to ICU (extubated next day). Hx heavy ETOH use noted. History of wisdom tooth extraction Hx of left cataract extraction Past Anesthesia History No Family Hx of Anesthesia Complications and Other History of PONV No Hx of PONV and No Hx of Motion Sickness Social History Smoking Status: Former smoker tobacco type: cigarettes Smoking cigarettes per day: Quit 2017 Do You Dip or Chew Tobacco: No Hx Alcohol Use: Yes Alcohol type: beer alcohol intake frequency: holidays/special occasions only Hx Substance Use: No substance use type: does not use Review of Systems Patient denies chest pain, shortness of breath, fever, chills, cough, wheezing, palpitations. Physical Exam Vital Signs VITALS BP 173/79 P 65 TEMP 98.2 SP02 98%RA RESP 20 PHYSICAL Full cervical extension range of motion. Full TMJ range of motion. TMD 3 finger breaths Mallampati Score 2 Dentition: upper/lower partials Lungs: clear throughout to auscultation Cardiac: regular rate and rhythm, III/ systolic murmur Spine: normal Carotid arteries: negative bruit Extremities: no LE edema Lab Results Anesthesia Preop Results Results Anesthesia Widget: WBC 7.85 K/ul (4.8-10.8) 05/04/23 Hgb 10.3 g/dl (14.0-18.0) L 05/04/23 Hct 36.1 % (42.0-52.0) L 05/04/23 Plt 393 K/uL (130-400) 05/04/23 Na 138 mmol/L (136-145) 05/26/23 K 4.3 mmol/L (3.5-5.1) 05/26/23 Cl 104 mmol/L (98-107) 05/26/23 CO2 26 mmol/L (21-32) 05/26/23 BUN 18 mg/dl (6-23) 05/26/23 Creat 1.03 mg/dl (0.6-1.4) 05/26/23 Glucose Level 148 mg/dl (70-99(Fasting)) H 05/26/23 PT 12.3 Seconds (9.0-12.0) H 05/26/23 PTT 35 Seconds (21-31) H 05/26/23 INR 1.1 (0.9-1.1) 05/26/23 TSH 5.024 uIu/ml (0.300-4.500) H 04/12/23 HA1c 6.9 % (4.5-5.6) H 05/26/23 Blood Type A Positive 05/26/23 Antibody Screen NEGATIVE 05/26/23 Testing Laboratory Results 05/19/23 WBC 8.52 H/H 10.4/35.5 PLATELETS 427 Electrocardiogram Date: 12/05/22 Sinus rhythm with first-degree AV block with occasional PVCs at 89 bpm. LAD. Chest X-Ray Date: 12/05/22 FINDINGS: No lines and tubes are seen. The cardiomediastinal silhouette is normal. The lungs are clear. No evidence of pleural effusion or pneumothorax. IMPRESSION: No acute chest disease. Echocardiogram Date: 01/10/23 LVEF 55-59%. Mildly increased concentric LV wall thickness. Severe LAE. Grade 2 diastolic dysfunction. Moderately calcified aortic valve. Mild MR/TR. Estimated PASP 41 mmHg. Aortic root and proximal ascending aorta are mildly enlarged. Moderate aortic stenosis (SCARLET 1.4-1.5 cm, MG 19.2-21.7mmhg). Stress Test Date: 01/10/23 2-day pharmacologic myocardial perfusion imaging study is negative for ischemia. EKG response to pharmacologic stress was normal. Gated SPECT imaging reveals normal myocardial thickening and wall motion. LVEF calculated to be 67%.
[~2023-06-09 08:13] MED LIST changes: -ACET-1256 PO; -ASPI-320 PO; -ASPI81TA28 PO; -ATOR10TA82 PO; -ATV/1 PO; -BISA10SU5 PR; +BUPIVACAINE 0.25% PF 30 ML VIAL ONE; +BUPIVACAINE 0.5 % 5 MG/1 ML PF 10ML VIAL ONE; -COLC0.6T54 PO; -DEXT40GE20 TOP; -DOCU1TAB6 PO; -FOLI1TAB8 PO; -FRS/80 PO; -GLGKIT SC; -INSDGI SC; -INSU1INJ2 SQ; -LVNIS30 SQ; -METO50TA8 PO; -MOML PO; -MRLP17X PO; -MULT-1042 PO; -NICO1DIS10 TD; -OXGN; -OXYC-57 PO; -PANT1TAB4 PO; -POTA10TA PO; -PREG1CAP36 PO; -PREG75CA PO; -SENN8.6T7 PO; -SITA50TA3 PO; -SLWMEC PO; -SODI1ENE PR; -SPIR25TA PO; -TAMS0.4C38 PO; -THIA100T10 PO
[2023-06-09] MEDS ORDERED: ONDANSETRON INJ 2 MG/ML 2 ML VIAL IV PRN ×2 (09:01→14:38)
[2023-06-09] MEDS ORDERED: ePHEDrine sulfate 50 MG/ML AMP IV PRN (09:01)
[2023-06-09] MEDS ORDERED: ATROPINE SULFATE 0.1 MG/ML 10ML SYR IV PRN (09:01)
[2023-06-09] MEDS ORDERED: fentaNYL citrate PF 100 MCG/2 ML VIAL ONE ×2 (09:14→10:47)
[2023-06-09] MEDS ORDERED: MIDAZOLAM HCL 1 MG/ML 2ML VIAL ONE (09:14)
--- NOTE | 2023-06-09 09:19 | History & Physical Bridge Note ---
Date of Service June 09, 2023 History & Physical Bridge Note I have examined the patient, reviewed the History & Physical and in the interval since the performance of the History & Physical I have noted the following changes of clinical significance: no changes noted
[2023-06-09] MEDS: LR 15ML/HR IV SCH (09:24)
[2023-06-09] MEDS: LR 60ML/HR IV SCH (09:24)
[2023-06-09] MEDS: ACETAMINOPHEN 500 MG TAB PO SCH ×2 (09:25→15:11)
[2023-06-09] MEDS: dexAMETHasone**PF** 10 MG/ML VIAL IV SCH (09:25)
[2023-06-09] MEDS: GABAPENTIN 300 MG CAP PO SCH (09:25)
[2023-06-09] MEDS: FAMOTIDINE 20 MG TAB PO SCH (09:25)
[2023-06-09] MEDS: TRANEXAMIC ACID 1,000 MG **IV Pre-op IV SCH (10:09)
[2023-06-09] MEDS: ceFAZolin 2000MG 2,000 MG/15 ML SYR IV SCH ×2 (10:15→18:21)
[2023-06-09] MEDS ORDERED: ROCURONIUM BROMIDE 10 MG/ML 5 ML VIAL IV ONE (10:35)
[2023-06-09] MEDS ORDERED: PHENYLEPHRINE 100MCG/ML 10ML SYR IV ONE (10:35)
[2023-06-09] MEDS ORDERED: ONDANSETRON INJ 2 MG/ML 2 ML VIAL ONE (10:35)
[2023-06-09] MEDS ORDERED: PROPOFOL IV EMULSION 10 MG/ML 20 ML VIAL IV ONE (10:35)
[2023-06-09] MEDS ORDERED: ePHEDrine sulfate 50 MG/5 ML SYR ONE (10:35)
[2023-06-09] MEDS ORDERED: SUGAMMADEX SODIUM 200 MG/2 ML VIAL IV ONE (10:36)
[2023-06-09] MEDS: ROPIV 0.5% 246mg, Ketorolac 30mg, EPINEPHrine 0.5mg in NSS INFIL SCH (11:06)
[2023-06-09] MEDS: ORTHO JOINT ANESTHETIC ONE (11:07)
[2023-06-09] MEDS: TRANEXAMIC ACID 1,000 MG **IV Intra-op IV SCH (11:41)
[2023-06-09] MEDS: fentaNYL citrate PF 100 MCG/2 ML VIAL IV PRN (12:25)
--- NOTE | 2023-06-09 12:44 | XRay Report ---
LEFT KNEE 2 VIEWS History: Left total knee arthroplasty. Degenerative arthritis. Postop. FINDINGS: The patient is status post a left total knee arthroplasty. The hardware is intact. No fract ure or dislocation. Skin yannick are in place. IMPRESSION: Left total knee arthroplasty. No evidence for hardware complication. ACT 112: Negative or not required by law. Electronically signed by: Antony West M.D. 06/09/2023 12:43 PM
[2023-06-09] MEDS: HYDROmorphone INJ 0.5 MG/0.5 ML SYR IV PRN (12:45)
[2023-06-09] MEDS: HYDROmorphone INJ 2 MG/ML SYR/VIAL IV STA (12:45)
[2023-06-09] MEDS: HYDROmorphone INJ 2 MG/ML SYR/VIAL ONE (12:47)
--- NOTE | 2023-06-09 13:50 | Anesthesiology Progress Note ---
Date of Service June 09, 2023 Anesthesia Post Procedure Vital Signs Vital Signs: Temp Pulse Pulse Resp BP Pulse Ox O2 Del Method 06/09/23 13:45 83 12 120/58 L 97 Nasal Cannula 06/09/23 13:30 86 12 123/62 96 Nasal Cannula 06/09/23 13:20 92 H 20 108/63 98 Nasal Cannula 06/09/23 13:10 36.6 C 87 12 113/61 96 Nasal Cannula 06/09/23 13:00 90 12 109/61 97 Nasal Cannula 06/09/23 12:50 95 H 12 115/64 94 Room Air 06/09/23 12:40 90 12 123/65 98 Oxymask 06/09/23 12:30 94 H 16 120/63 99 Oxymask 06/09/23 12:20 92 H 12 99/63 L 97 Oxymask 06/09/23 12:12 36.2 C L 90 13 109/64 99 Oxymask 06/09/23 08:54 37.4 C 61 20 126/63 97 Room Air O2 Flow Rate 06/09/23 13:45 2 06/09/23 13:30 2 06/09/23 13:20 2 06/09/23 13:10 2 06/09/23 13:00 2 06/09/23 12:50 06/09/23 12:40 4 06/09/23 12:30 4 06/09/23 12:20 4 06/09/23 12:12 6 06/09/23 08:54 Pain Intensity Left Knee: Pain Intensity: 7 Right Knee: Pain Intensity: 9 Transfer of Care Handoff Completed per policy Notes Mental Status: alert / awake / arousable and participated in evaluation Patient Amnestic to Procedure: Yes Nausea / Vomiting: adequately controlled Pain: adequately controlled Airway Patency, RR, SpO2: stable & adequate BP & HR: stable & adequate Hydration State: stable & adequate Anesthetic Complications: no major complications apparent and Pt Satisfied with anesthetic care
[2023-06-09] MEDS ORDERED: bisacodyL 10 MG SUPP PR PRN (14:38)
[2023-06-09] MEDS ORDERED: NON-FORMULARY MEDICATION (Cpap Machine misc) SCH (14:38)
[2023-06-09] MEDS ORDERED: NALOXONE HCL 0.4 MG/1 ML VIAL/CARP IV PRN (14:38)
[2023-06-09] MEDS ORDERED: modafiniL 100 MG TAB PO PRN (14:38)
[2023-06-09] MEDS ORDERED: LORazepam 0.5 MG TAB PO PRN (14:38)
[2023-06-09] MEDS ORDERED: FLUOCINONIDE 0.05% OINT 15 GM TUBE EXT PRN (14:38)
[2023-06-09] MEDS ORDERED: PHARMACY GLYCEMIC MGMT CONSULT PRN (14:38)
[2023-06-09] MEDS ORDERED: METOCLOPRAMIDE HCL INJ 5 MG/ML 2 ML VIAL IV PRN (14:38)
[2023-06-09] MEDS: PHENYLEPHRINE 100MCG/ML 5ML SYR ONE (14:54)
[2023-06-09] MEDS: PREGABALIN 100 MG CAP PO SCH (15:11)
[2023-06-09] MEDS: SODIUM CHLORIDE 0.9% 1,000 ML IV SCH (15:11)
[2023-06-09] MEDS ORDERED: HYDROmorphone INJ 2 MG/ML SYR/VIAL ONE (15:12)
--- NOTE | 2023-06-09 15:16 | Operative Report ---
PG Post Operative Report Pre & Post Diagnosis Operation Date: 06/09/23 10:00 Pre-Op Diagnosis: Left Knee Degenerative Joint Disease Post-Op Diagnosis: Left Knee Degenerative Joint Disease I identified the patient and participated in the time-out.: Yes Procedure Operation Date: 06/09/23 10:00 Actual Procedures p Left Total Knee Arthroplasty(Left) - Arian Dee DO Surgeon Arian Dee DO Front End Driver Arian Hahn PA-C Estimated Blood Loss 30 Findings Consistent with Post-Op Diagnosis Specimens Left femoral tibial bone Description of Procedure Implants used: I used a [employer] Person[employer] total knee arthroplasty system with a size 12 standard PS femur, H tibia, 34 oval patella, and a size 10 CPS polyethylene bearing. All components were cemented in place with Biomet cement. [facility] for the above procedure. He was seen in the preoperative holding area and the operative extremity was identified and signed. He was given a preoperative antibiotic, TXA,and an adductor nerve block. He was taken back to the operating room and laid on the table in supine position. He was given general anesthesia. The operative knee was then prepped and draped in sterile fashion. A timeout was done, and the patient and the operative extremity was properly identified. A midline incision was made directly over the patella. Dissection was taken down to the extensor mechanism. A medial parapatellar arthrotomy was used. The medial retinaculum was released and the fat pad was mostly excised. The knee was flexed and the ACL, PCL, and meniscus were removed. A drill was sent down the center of the femoral canal followed by an intramedullary joey. Off that joey a distal femoral cutting block was placed. 9 mm was resected off the distal femur at 5 of valgus. A posterior referencing AP sizing guide was then placed on the distal femur. The femur measured to be a size 12. 2 drill holes were placed in 3 of external rotation. A 4-in-1 cutting block was then impacted into place. Anterior, posterior, and chamfer cuts were then made. The proximal tibia was then exposed. An external tibial alignment guide was placed. A tibial cut guide was then anchored in place and the proximal tibia was then resected. The posterior aspect of the knee was then opened up and any additional meniscus fragments and osteophytes were removed. The tibia measured to be a size H. The tibial plate was then placed in the appropriate rotation and the tibia was drilled and punched. Trial components were then placed. I used a size 10 CPS polyethylene insert. The knee was brought through a full range of motion and felt to be stable. The peg holes for the femoral component were then drilled. The patella was then everted and 9 mm was resected off the posterior aspect of the patella. The patella measured to be a size 34 oval. 3 peg holes were then drilled. A trial patella was placed. The knee was once again brought through a full range of motion and felt to be stable. Trial components were then removed. The surrounding soft tissues were injected with 100 cc of an orthopedic pain control cocktail. All components were then cemented into place with Biomet cement. The final polyethylene insert was then snapped into place. Once cement was dry the tourniquet was deflated. Hemostasis was obtained. A dilute betadyne lavage was then done for 3 minutes. The joint was then irrigated with normal saline solution. The medial parapatellar arthrotomy was then closed with #1 Vicryl suture. The skin was closed with 2-0 Vicryl, 3-0V lock suture, and yannick. A soft compressive dressing was placed. He was then transferred to a hospital bed and taken to the postanesthesia care unit in stable condition. He tolerated the procedure well. Arian Hahn PA-C, was present for the entire procedure. He was critical for patient positioning, prepping, draping, retraction exposure, wound closure and application of sterile dressing. I attest to the content of the Intraoperative Record and any orders documented therein. Any exceptions are noted below.
--- OUTSIDE RECORDS SUMMARY | 2023-06-09 15:28 | External Medical Summary | Summary of Care ---
Author Name Unknown Organization [facility] Address [address] [facility] [place] [address] Phone [phone] Care Team Providers Care Can Closing Machine Tender Name Role Phone Matilde Mauricio Primary Care Provider + [phone] Reason for Visit * Reason Comments Medication Administration Procrit * Episode Based Medications (Routine) - Authorized Specialty Diagnoses / Procedures Referred By Fabian t Referred To Contact Diagnoses Chronic kidney disease, stage 3b (HCC) Procedures ID EPOETIN KAI, NON-ESRD Eryn Morris CRNP [address] [place] [address] Anc Hem/Onc [facility] [place] DEPT CLOSED - 03/07/[address] [place] [address] Referral ID Status Reason Start Date Expiration Date V isits Requested Visits Authorized [id number] Authorized 12/21/2022 12/23/2023 [id number] Encounter Details Date Type Department Care Team (Late st Contact Info) Description 06/08/2023 11:15 AM EST Immunization/I njection Hematology/Oncology Treatment, [place] [address] [place] [address] Nurse, Med [address] [id number] Chronic kidney disease, stage 3b (HCC)* Allergies No known active allergiesdocumented as of this encounter (statuses as of 06/08/2023) Medications Medication Sig Dispensed Refills Start Date End Date Status acetaminophen (TYLENOL) 500 MG TabletIndications:Pa in Take 2 Tablets by mouth every 6 hours as needed for Pain or Fever. 100 Tab 0 04/18/2017 Active Polyethylene Glycol 3350 17 GM/SCOOP Oral PowderIndications:Co nstipation Take 17 g by mouth as needed for Constipation. Dissolve one heaping tablespoon in 8 ounces of water or juice. 1 Bottle 2 04/18/2017 Active Vitamin D 50 MCG (2000 UT) Oral CapsuleIndications:V itamin D deficiency Take 1 capsule by mouth once daily 90 Cap 1 06/22/2020 Active LORazepam 1 MG Oral Tablet (Ativan)Indications: LORENA (generalized anxiety disorder) Take by mouth 1 Tablet daily as needed for Anxiety. 15 Tablet 0 10/15/2021 Active Modafinil 200 MG Oral Tablet (Provigil)Indication s:Sleep Disorder Take 1 Tablet by mouth in the morning and 1 Tablet in the evening. 0 05/13/2022 Active Lidocaine 4 % External PatchIndications:Barry n Place 1 Patch topically on the skin daily as needed for Pain. 0 Active Docusate Sodium 100 MG Oral CapsuleIndications:C onstipation Take 1 Capsule by mouth daily as needed for Constipation. 0 Active Diclofenac Sodium 1 % External Gel (Voltaren)Indication s:Pain Apply 2 g topically to affected area 3 times a day as needed. 0 Active RayVTouch Verio w/Device Kit Use to test blood sugars 1 time a day E11.9 1 Kit 0 09/14/2022 Active OneTouch Verio In Vitro Strip (Glucose Blood) Use to test blood sugars 1 time a day E11.9 100 Strip 3 09/14/2022 Active Folic Acid 1 MG Oral Tablet TAKE ONE TABLET BY MOUTH EVERY MORNING 100 Tablet 1 06/06/2022 4 Active Insulin Glargine Solostar 100 UNIT/ML Subcutaneous Solution Pen-injectorIndicati ons:Type 2 diabetes mellitus with hemoglobin A1c goal of less than 7.0% (HCC) Inject 30 units under the skin daily and increase as per MTM pharmacist with max TDD 45 units daily 45 mL 3 11/18/2022 Active Spironolactone 25 MG Oral Tablet (Aldactone)Indicatio ns:Pulmonary hypertension (HCC) TAKE ONE-HALF TABLET BY MOUTH EVERY MORNING 50 Tablet 1 12/07/2022 4 Active Dexcom G7 Sensor Use as directed. Via DME 0 12/16/2022 Active Torsemide 100 MG Oral Tablet (Demadex)Indications :HTN, goal below 140/90 Take 0.5 Tablets by mouth in the morning. 90 Tablet 3 12/22/2022 Active Atorvastatin Calcium 40 MG Oral Tablet (Lipitor)Indications :Dyslipidemia TAKE ONE TABLET BY MOUTH EVERY MORNING 100 Tablet 3 01/26/2023 4 Active Fluticasone Propionate 50 MCG/ACT Nasal Suspension (Flonase)Indications :Post-nasal drip Administer 2 Sprays into each nostril daily as needed for Allergies. 0 01/30/2023 Active Pantoprazole Sodium 40 MG Oral Tablet Delayed Release (Protonix) Take 1 Tablet by mouth in the morning. 90 Tablet 1 02/08/2023 Active Metoprolol Succinate ER 25 MG Oral Tablet Extended Release 24 Hour (toPROL XL) TAKE ONE TABLET BY MOUTH EVERY MORNING 100 Tablet 3 02/15/2023 4 Active Ozempic (2 MG/DOSE) 8 MG/3ML Subcutaneous Solution Pen-injector (Semaglutide (2 MG/DOSE)) INJECT 2 MG UNDER THE SKIN ONCE WEEKLY 9 mL 1 03/30/2023 4 Active Additional Information Patient taking differently: Takes on Fridays, Reported on 05/05/2023 Sertraline HCl 100 MG Oral Tablet (Zoloft)Indications: LORENA (generalized anxiety disorder) Take 1 Tablet by mouth in the morning. 100 Tablet 3 05/05/2023 Active Sertraline HCl 50 MG Oral Tablet (Zoloft)Indications: Major depressive disorder, recurrent, moderate (HCC) Take 1 Tablet by mouth in the morning. Take with 100mg tablet to equal 150mg dose. 100 Tablet 3 05/05/2023 Active Vitamin B-12 500 MCG Oral Tablet (vitamin B-12) Take 1 Tablet by mouth in the morning. 0 Active HYDROcodone-Acetamin ophen 10-325 MG Oral TabletIndications:Pr imary osteoarthritis of both knees,Pseudogout of multiple joints Take 1 Tablet by mouth every 6 hours as needed for Pain, Mild. Fill date 06/09/2023 or later 120 Tablet 0 06/02/2023 Active Verapamil HCl ER 120 MG Oral Tablet Extended Release (Isoptin SR)Indications:Frequ ent PVCs,NSVT (nonsustained ventricular tachycardia) (HCC) TAKE ONE TABLET BY MOUTH EVERY OTHER DAY 45 Tablet 3 06/05/2023 5 Active Pregabalin 100 MG Oral Capsule (Lyrica)Indications: Neuropathy,Bilateral leg pain Take 1 Capsule by mouth in the morning and 1 Capsule at noon and 1 Capsule before bedtime. 90 Capsule 3 06/07/2023 Active documented as of this encounter (statuses as of 06/08/2023) Active Problems Problem Noted Date Diagnosed Date Protein-calorie malnutrition 03/08/2023 Anemia due to stage 3a chronic kidney disease Overview: Per CKD protocol Primary osteoarthritis of both knees 07/14/2022 Nonrheumatic aortic valve stenosis 06/07/2022 Hypertensive kidney disease with stage 3b chronic kidney disease 06/06/2022 COPD, group A, by GOLD 2017 classification 04/04 Overview: Per COPD GOLD Classification Iron deficiency anemia 12/03/2021 Gastro-esophageal reflux disease without esophag itis 11/01/2021 Chronic kidney disease, stage 3b 10/06/2020 Overview: Per CKD protocol Type 2 diabetes mellitus wit h stage 3b chronic kidney disease, without long-term current use of insulin 09/01/2020 Overview: Per CKD protocol History of cardiac arrest 05/30/2019 NSVT (nonsustained ventricular tachycardia) 07/2018 Type 2 diabetes mellitus with diabetic nephropat hy 02/25/2019 Diabetic peripheral neuropathy 02/25/2019 PMR (polymyalgia rheumatica) 02/25/2019 Dyslipidemia 02/25/2019 HTN, goal below 140/90 02/25/2019 LORENA (generalized anxiety disorder) 02/25/2019 Hepatic steatosis 04/30/2018 Enlarged liver 04/30/2018 Other chest pain 10/23/2017 Frequent PVCs 10/23/2017 Pulmonary hypertension 10/23/2017 HENRIK (obstructive sleep apnea) 10/23/2017 Major depressive disorder, recurrent, moderate 0 10/19/2016 custodial current use of systemic steroids 03/26 Pseudogout of multiple joints 09/18/2014 DJD (degenerative joint disease) of knee 015 Pseudogout of knee 03/14/2014 Chronic narcotic use 12/23/2010 Type 2 diabetes mellitus wit h hemoglobin A1c goal of less than 7.0% 11/05/2009 Overview: ICD-10 update of inactive term documented as of this encounter (statuses as of 06/08/2023) Resolved Problems Problem Noted Date Diagnosed Date Resolved Date Anemia due to stage 3 chronic kidney disease 3 03/09/2023 Overview: Per CKD protocol Chronic kidney disease (CKD) , stage IV (severe) 02/25/2019 03/08/2019 Chronic obstructive pulmonary disease 02/25/2019 04/07/2022 Overview: Per COPD GOLD Classification Body mass index (BMI) of 45. 0 to 49.9 in adult 07/30/2018 11/01/2021 Overview: Per Obesity protocol #1 - - Body mass index (BMI) of 40. 0 to 44.9 in adult 05/07/2018 08/01/2018 Overview: Per Obesity protocol #1 - Body mass index (BMI) of 45. 0 to 49.9 in adult 04/02/2018 05/11/2018 Overview: Per Obesity protocol #1 Type 2 diabetes mellitus wit h stage 3 chronic kidney disease, with long-term current use of insulin 11/14/2017 09/03/2020 Overview: Per CKD protocol Cardiorespiratory arrest 10/23/201709/2019 Body mass index (BMI) of 40. 0 to 44.9 in adult 10/19/2016 04/06/2018 Overview: Per Obesity protocol #1 ICD-10 update of inactive term Arthropathy of multiple sites 10/15/2009 04/18/2017 Primary localized osteoarthrosis, lower leg 10/15/2009 03/14/2014 Elevated sedimentation rate 10/15/2009 10/18/2016 documented as of this encounter (statuses as of 06/08/2023) Immunizations Name Administration Dates Next Due COVID-19 mRNA, LNP-s, No Pre serve, 2-Dose Series (Pfizer) 03/04/2021,06/30/2020,06/09/2020 COVID-19, LNP-s, No Preserve , Pool-sucrose, Ages 12+ (Pfizer) 12/07/2021 COVID-19, MRNA-LNP, 23-24, P F, 30 MCG/0.3 mL, 12 YRS AND ABOVE, IM (AtomShockwave-Comiratrium health stanly) 03/07/2023 Covid-19, Mrna, Lnp-s, Pf, B ivalent, 30 Mcg, IM, 12 yrs and above (Gungroo) 04/12/2022 Pneumococcal Conjugate Vacc, 13 Valent (Prevnar) 02/25/2019 Pneumococcal Polysaccharide PPV23 (Pneumovax) 03/17/2020,03/04/2010,02/16/2001 Seasonal Influenza, PF, 6 M & above, IM , (FluLaval or Fluzone) 01/08/2019 Seasonal Influenza, Quadriva lent Hd, 65+ Yrs 01/30/2021,01/16/2020 Seasonal Influenza, Split, I IV3, With Preserve, Inj 01/29/2016,01/13/2015,01/07/2015,02/27,02/27/2013,02/01/2012,01/02/2012 ,02/05/2011,01/19/2011,02/01/2010,01/23,02/16/2001 Seasonal Influenza, Trivalen t, Adjuvanted, 65+ yrs 01/25/2018 Seasonal Influenza, Trivalen t, High Dose, No Preserve, IM 01/10/2019 TD - Tetanus/Diptheria (ADULT) 12/25/2007 Zoster Vaccine Recombinant (Shingrix) 03/17/2020 ,05/30/2019 documented as of this encounter Social History Tobacco Use Types Packs/Day Years Used Date Smoking Tobacco: Former Cigarettes 0.5 10 Q uit: 03/01/2017 Passive Smoke Exposure: Current Smokeless Tobacco: Never Comments:Pt had smoked for q uite some time and then quit- restarted 10 years ago. Alcohol Use Standard Drinks/Week Comments Yes 0 (1 standard drink = 0.6 oz pur e alcohol) occasionally PHQ-2 Answer Date Recorded PHQ Adult Total Score 6 01/30/2023 Hunger Vital Sign Answer Date Recorded Within the past 12 months, y ou worried that your food would run out before you got the money to buy more. Never true 01/31/20 23 Within the past 12 months, t he food you bought just didn't last and you didn't have money to get more. Never true 01/30/2023 Sex and Gender Information Value Date Recorded Sex Assigned at Male 11/01/2021 4:20 PM EDT Gender Identity Male 11/01/2021 4:20 PM EDT Sexual Orientation Straight 04/08/2021 3: 47 PM EST Job Start Date Occupation Industry Not on file Not on file Not on file documented as of this encounter Last Filed Vital Signs Vital Sign Reading Time Taken Comments Blood Pressure 150/87 06/08/2023 11:25 AM EST Pulse - - Temperature - - Respiratory Rate - - Oxygen Saturation - - Inhaled Oxygen Concentration - - Weight - - Height - - Body Mass Index - - documented in this encounter Nursing Notes * Sommer Marquez LPN - 06/08/2023 11:42 AM EST Pt arrived for Procrit injection. Hgb 10.5. BP WNL. Administered in [place]NIE. Pt tolerated well. Pt to have left knee replaced tomorrow and will be in contact on when he can come back for another lab drawand injection. Pt was discharged in stable condition. documented in this encounter Plan of Treatment Upcoming Encounters Date Type Department Care Team (Late st Contact Info) Description 06/12/2023 10:40 AM EST Office Visit Family Practice [address], [place] [address] [facility] [place] [phone] Matilde Mauricio DO [address] [facility], [place] [address] 06/30/2023 10:40 AM EST Laboratory Laboratory [facility] [address] [facility] [place] [phone] Park, Lab Scenery [address] [facility] [place] [address] 06/30/2023 11:45 AM EST Immunization/Injecti on Hematology/Oncology Treatment, [place] [address] [facility] [place] [id number] Nurse, Med [address] [facility] [place] [address] 07/21/2023 2:00 PM EDT Office Visit Hematology/Oncology [facility] [address] [facility] [place] [address] Eryn Morris CRNP [address] [facility] [place] [address] 09/27/2023 10:30 AM EDT Office Visit Rheumatology [facility] [address] [place], [place] [address] Tommy Rodriguez PA-C [address] [place] [address] 01/11/2024 4:00 PM EDT Cardiac Studies Cardiac Studies, [facility] [address] [facility] [place] [address] Scheduled Procedures Name Priority Associated Diagnoses Date/Ti me COLONOSCOPY FLEXIBLE PROXIMA L DIAGNOSTIC Recall History of colon polyps ARTHROPLASTY TOTAL SHOULDER Localized osteoarthritis of left shoulder REVERSE TOTAL SHOULDER ARTHROPLASTY Localized osteoarthritis of left shoulder Health Maintenance Due Date Last Done Comments DTaP,Tdap,and Td Vaccines (1 - Tdap) 12/26/2007 12/25/2007 Hepatitis B (1 of 3 - Risk 3-dose series) 2012 *COPD SEVERITY VERIFIED BY PFT 02/27/2019 Influenza Vaccine (FLU shot) (#1) 2022 01/30/2021, 01/16/2020, 01/10/2019, Additional history exists Diabetic Foot Exam 04/07/2023 04/07/2022, 1 06/09/2020, 12/12/2019, Additional history exists HbA1c 06/07/2023 12/05/2022, 05/0 12/2022, 01/05/2022, Additional history exists COLONOSCOPY-ANNUAL AGES 18-100 06/09/2023 06/09/2022, 06/09/2022, 02/08/2019, Additional history exists Albumin/Creatinine Ratio 08/31/2023 023, 07/16/2021, 05/08/2020, Additional history exists GFR 11/03/2023 05/05/2023, 01/23, 12/13/2022, Additional history exists CKD PHOS USE SMARTSET 21477 12/14/202311/23, 01/05/2022, 05/08/2020, Additional history exists Diabetic Eye Exam 03/10/2024 03/10/2023, , 02/16/2023, Additional history exists Depression Screening 05/05/2024 05/05/2023 O2 ASSESSMENT COMPLETED IN PAST YEAR FOR COPD 05/23/2024 05/23/2023 CKD HGB USE SMARTSET 11688 06/08/202406/08, 06/08/2023, 06/02/2023, Additional history exists Lipid Panel 04/07/2028 04/07/2023, 12/23, 07/27/2021, Additional history exists Alpha-1 Antitrypsin Completed 06/01/2018 Pneumococcal Vaccine: 65+ Years Completed 03/17/2020, 02/25/2019, 03/04/2010, Additional history exists Zoster Vaccines Completed 03/17/2020, 05/30/2019 Fecal Occult Blood Test Discontinued 08/09/2021 AAA Screening Completed 11/02/2021, 02/12/2018 Colonoscopy Discontinued 06/09/2022, 05/25, 02/08/2019, Additional history exists Colorectal Cancer Screening Discontinued COVID-19 Vaccine Completed 03/07/2023, , 12/07/2021, Additional history exists Cologuard Discontinued GARDASIL-HPV IMMUNIZATION SERIES Aged Out No longer eligible based on patient's age to complete this topic MENINGOCOCCAL (MENACTRA/MENVEO) Aged Out No longer eligible based on patient's age to complete this topic Sigmoidoscopy Discontinued documented as of this encounter Medical Devices Not on filedocumented as of this encounter Visit Diagnoses Diagnosis Chronic kidney disease, stage 3b (HCC)- Primary documented in this encounter Administered Medications Inactive Administered Medications - up to 3 most recent administrations Medication Order MAR Action Action Date Dose Rate Site Epoetin Kai [address] UNIT/ML inj 40,000 Units 40,000 Units, Subcutaneous, ONCE, On Cynthia 06/08/23 at 1200, For 1 dose Given 06/08/2023 11:30 AM EST 40,000 Units Arm Right Upper documented in this encounter Care Teams Can Closing Machine Tender Relationship Specialty Start Date End Date Matilde Mauricio DO [address] [facility], [place] [address] PCP - General Family Medicine 12/15/22 documented as of this encounter
--- OUTSIDE RECORDS SUMMARY | 2023-06-09 15:28 | External Medical Summary ---
Author Name Unknown Address Unknown Organization K09[facility] [place] [address] Laboratory Report Ordering Provider Test Date Status KERRIE ESPINOZA 06/08/2023 11:02:33 Final Observation Date Value Abnormality Reference (Units ) Status SYNC LEUKOCYTES IN BLOOD BY AUTOMATED COUNT 06/08/2023 11:02:33 5.61 4.00-10.80 (K/uL) Final Segs 06/08/2023 11:02:33 74.3 40.0-75.0 (%) Final Lymphs % 06/08/2023 11:02:33 12.7 Below low normal 18.0-42.0 (%) Final Monos 06/08/2023 11:02:33 11.2 Above high normal 1.0-11.0 (%) Final Eosinophils 06/08/2023 11:02:33 1.6 0.0-6.0 (%) Final Basos 06/08/2023 11:02:33 0.2 0.0-2.0 (%) Final Absolute Segs 06/08/2023 11:02:33 4.17 1.80-7.70 (K/uL) Final Lymphs, absolute 06/08/2023 11:02:33 0.71 Below low normal 1.00-4.80 (K/ul) Final Monos, Abs 06/08/2023 11:02:33 0.63 0.00-1.10 (K/uL) Final Eos, Abs 06/08/2023 11:02:33 0.09 0.00-0.70 (K/uL) Final Basos, Abs 06/08/2023 11:02:33 0.01 0.00-0.20 (K/uL) Final Performing Location [facility] [place] [address]
--- OUTSIDE RECORDS SUMMARY | 2023-06-09 15:28 | External Medical Summary ---
Author Name Unknown Address Unknown Organization K09[facility] [place] [address] Laboratory Report Ordering Provider Test Date Status KERRIE ESPINOZA 06/08/2023 11:02:33 Final Observation Date Value Abnormality Reference (Units ) Status WBC, Total 06/08/2023 11:02:33 5.61 4.00-10.8 0 (K/uL) Final RBC 06/08/2023 11:02:33 4.62 4.50-5.25 (M/uL) Final Hemoglobin 06/08/2023 11:02:33 10.5 Below low normal 14 .0-16.8 (g/dL) Final HCT 06/08/2023 11:02:33 36.0 Below low normal 40. 0-48.4 (%) Final MCV 06/08/2023 11:02:33 77.9 82.0-99.5 (fL) Final MCH 06/08/2023 11:02:33 22.7 27.0-34.0 (pg) Final MCHC 06/08/2023 11:02:33 29.2 32.0-36.0 (g/dL) Final RDW 06/08/2023 11:02:33 19.9 11.5-15.5 (%) Final Platelets 06/08/2023 11:02:33 322 140-400 (K /uL) Final MPV 06/08/2023 11:02:33 8.2 6.6-11.1 ( fL) Final Performing Location [facility] [place] [address]
--- OUTSIDE RECORDS SUMMARY | 2023-06-09 15:28 | External Medical Summary | Summary of Care ---
Author Name Unknown Organization [facility] Address [address] [facility] [place] [address] Phone [phone] Care Team Providers Care Sales Development Manager Name Role Phone Matilde Mauricio Primary Care Provider Reason for Visit * Reason Comments Outpatient Testing Encounter Details Date Type Department Care Team (Late st Contact Info) Description 06/08/2023 11:00 AM EST Laboratory Laboratory [address] [place] [address] [place] [phone] [place], Lab [address] [place] [address] Anemia due to stage 3 chronic kidney disease, unspecified whether stage 3a or 3b CKD (HCC) Allergies No known active allergiesdocumented as of [...] times a day as needed. 0 Active OneTouch Verio w/Device Kit Use to test blood [...] Major depressive disorder, recurrent, moderate 0 10/19/2016 skilled nursing current use of systemic steroids 03/26 Pseudogout [...] mRNA, LNP-s, No Pre serve, 2-Dose Series (OpenCounter) 03/04/2021,06/30/2020,06/09/2020 COVID-19, LNP-s, No Preserve , Pool-sucrose, Ages 12+ (OpenCounter) 12/07/2021 COVID-19, MRNA-LNP, 23-24, P F, 30 MCG/0.3 mL, 12 YRS AND ABOVE, IM (TidyClub-Comirnat) 03/07/2023 Covid-19, Mrna, Lnp-s, Pf, B ivalent, 30 Mcg, IM, 12 yrs and above (Pfizer) 04/12/2022 Pneumococcal Conjugate Vacc, 13 Valent (Prevnar) [...] on file documented as of this encounter Plan of Treatment Upcoming Encounters Date Type Department Care Team (Late st Contact Info) Description 06/12/2023 10:40 AM EST Office Visit Family Practice [address], [place] [facility] [address] Matilde Mauricio DO [address] [facility] [address] 06/30/2023 10:40 AM EST Laboratory Laboratory [facility] [address] [place] [phone] [place], Lab [facility] 200 [facility] [place] [address] 06/30/2023 11:45 AM EST Immunization/Injecti on Hematology/Oncology Treatment, [place] [address] [place] [address] Nurse, Med 4 200 [facility] [place] [address] 07/21/2023 2:00 PM EDT Office Visit Hematology/Oncology [facility] [address] [place] [address] Eryn Morris CRNP [address] [place] [address] [place] [address] 09/27/2023 10:30 AM EDT Office Visit Rheumatology [facility] [address] [place] [address] Tommy Rodriguez PA-C [address] [place] [address] 01/11/2024 4:00 PM EDT Cardiac Studies Cardiac Studies, Vasyl Olmos [place] 132 [facility] [place] [address] Pending Results Name Type Priority Associated Diagnoses Date /Time CBC WITH WBC DIFFERENTIAL Lab STAT Anemia due to stage 3 chronic kidney disease, unspecified whether stage 3a or 3b CKD (HCC) 06/08/2023 11:02 AM EST CBC Lab STAT Anemia due to stage 3 chronic kidney disease, unspecified whether stage 3a or 3b CKD (HCC) 06/08/2023 11:02 AM EST DIFFERENTIAL, AUTOMATED Lab STAT Anemia due to stage 3 chronic kidney disease, unspecified whether stage 3a or 3b CKD (HCC) 06/08/2023 11:02 AM EST Scheduled Procedures Name Priority Associated Diagnoses Date/Ti [...] Additional history exists CKD PHOS USE SMARTSET 73609 12/14/202311/23, 01/05/2022, 05/08/2020, Additional history exists Diabetic Eye Exam 03/10/2024 03/10/2023, , 02/16/2023, Additional history exists Depression Screening 05/05/2024 05/05/2023 O2 ASSESSMENT COMPLETED IN PAST YEAR FOR COPD 05/23/2024 05/23/2023 CKD HGB USE SMARTSET 23243 06/02/202406/02, 06/02/2023, 05/26/2023, Additional history exists Lipid Panel 04/07/2028 04/07/2023, [...] as of this encounter Visit Diagnoses Diagnosis Anemia due to stage 3 chronic kidney disease, unspecified whether stage 3a or 3b CKD (HCC) documented in this encounter Care Teams Sales Development Manager Relationship Specialty Start Date End Date Matilde Mauricio DO [address] [place] [address] PCP - General Family Medicine 12/15/22 documented as of this encounter
--- OUTSIDE RECORDS SUMMARY | 2023-06-09 15:29 | External Medical Summary | Summary of Care ---
Author Name Unknown Organization [facility] Address [address] [facility] [place] [address] Phone [phone] Care Team Providers Care Yarn Bleaching Machine Operator Name Role Phone Matilde Mauricio Primary Care Provider Reason for Visit * Reason Comments IV Therapy Venofer Encounter Details Date Type Department Care Team (Latest Contact Info) Description 06/07/2023 2:30 PM EST Hem/Onc Treatment Hematology/Oncology Treatment, [address] [address] [place], Chair 3 Hem Onc [address] [address] Iron deficiency anemia, unspecified iron deficiency anemia type*; Anemia due to stage 3a chronic kidney disease (HCC) Allergies No known active allergiesdocumented as of this encounter (statuses as of 06/07/2023) Medications Medication Sig Dispensed Refills Start Date [...] 2 04/18/2017 Active Vitamin D 50 MCG (1999 UT) Oral CapsuleIndications:V itamin D deficiency Take [...] as of this encounter (statuses as of 06/07/2023) Active Problems Problem Noted Date Diagnosed Date [...] Major depressive disorder, recurrent, moderate 0 10/19/2016 correction current use of systemic steroids 03/26 Pseudogout of multiple joints 09/18/2014 DJD (degenerative joint disease) of knee 015 Pseudogout of knee 03/14/2014 Chronic narcotic use 12/23/2010 Type 2 diabetes mellitus wit h hemoglobin A1c goal of less than 7.0% 11/05/2009 Overview: ICD-10 update of inactive term documented as of this encounter (statuses as of 06/07/2023) Resolved Problems Problem Noted Date Diagnosed Date [...] as of this encounter (statuses as of 06/07/2023) Immunizations Name Administration Dates Next Due COVID-19 mRNA, LNP-s, No Pre serve, 2-Dose Series ([place]) 03/04/2021,06/30/2020,06/09/2020 COVID-19, LNP-s, No Preserve , Pool-sucrose, Ages 12+ ([place]) 12/07/2021 COVID-19, MRNA-LNP, 23-24, P F, 30 MCG/0.3 mL, 12 YRS AND ABOVE, IM (XRONet-Comirnaty) 03/07/2023 Covid-19, Mrna, Lnp-s, Pf, B ivalent, [...] Sign Reading Time Taken Comments Blood Pressure 142/75 06/07/2023 2:30 PM EST Pulse 61 06/07/2023 2:30 PM EST Temperature 36.4 C (97.6 F) 06/07/2023 2:[address] Respiratory Rate 18 06/07/2023 2:30 PM EST Oxygen Saturation - - Inhaled Oxygen Concentration - - Weight - - Height - - Body Mass Index - - documented in this encounter Nursing Notes * Lexie Case RN - 06/07/2023 3:43 PM EST Goals: Patient will remain free from injury. Possible barriers to meeting goals: ambulation with IV pole, use of wheelchair, upcoming total kneereplacement and need for assistance with transfers Stability of the patient: Moderately unstable - medium risk of patient condition declining or worsening Summary regarding today's goals: Met: Pt remained free of injury during treatment Patient tolerated treatment well and was discharged in stable condition. Coverage by A Osvaldo RN. * Lexie Case RN - 06/07/2023 2:40 PM EST Chair 1 Pt arrives for venofer 2 of 2 ordered doses. He is in a wheelchair, transfers with minimal assistance. Pt states he's scheduled for knee replacement surgery this Monday. He denies any acute complaints. IV started in the left forearm without difficulty, good blood return noted, flushed with NSS, fluids infusing. Safety and Risk for Injury Patient will remain free from injury. Ensure appropriate safety devices are available. Provide and maintain safe environment. documented in this encounter Plan of Treatment Upcoming Encounters Date Type Department Care Team (Late st Contact Info) Description 06/08/2023 11:15 AM EST Immunization/Injecti on Hematology/Oncology Treatment, [place] 200 [facility] [place] [place] [address] Nurse, Med 4 200 [facility] [place] [address] 06/12/2023 10:40 AM EST Office Visit Family Practice 65 [facility] [place] 293 [facility] [address] Matilde Mauricio DO 293 [facility], [place] [address] 06/30/2023 10:40 AM EST Laboratory Laboratory [facility] 200 [facility] [place] [phone] [place], Lab [facility] 200 [facility] [place] [address] 06/30/2023 11:45 AM EST Immunization/Injecti on Hematology/Oncology Treatment, [place] 200 [facility] [place] [address] Nurse, Med 4 [address] [place] [address] 07/21/2023 2:00 PM EDT Office Visit Hematology/Oncology [facility] 200 [facility] [place] [address] Eryn Morris CRNP 400 [facility] [place] [address] 09/27/2023 10:30 AM EDT Office Visit Rheumatology [facility] [address] [place], [place] [address] Tommy Rodriguez PA-C [address] [place], [place] [address] 01/11/2024 4:00 PM EDT Cardiac Studies Cardiac Studies, [facility] [address] [place] [address] Scheduled Procedures Name Priority Associated Diagnoses Date/Ti [...] Additional history exists CKD PHOS USE SMARTSET 60829 12/14/202311/23, 01/05/2022, 05/08/2020, Additional history exists Diabetic Eye Exam 03/10/2024 03/10/2023, , 02/16/2023, Additional history exists Depression Screening 05/05/2024 05/05/2023 O2 ASSESSMENT COMPLETED IN PAST YEAR FOR COPD 05/23/2024 05/23/2023 CKD HGB USE SMARTSET 44948 06/02/202406/02, 06/02/2023, 05/26/2023, Additional history exists Lipid [...] as of this encounter Visit Diagnoses Diagnosis Iron deficiency anemia, unspecified iron deficiency anemia type- Primary Anemia due to stage 3a chronic kidney disease (HCC) documented in this encounter Administered Medications Active Administered Medications - up to 3 most recent administrations Medication Order MAR Action Action Date Dose Rate Site diphenhydrAMINE (Benadryl) inj 50 mg 50 mg, IV Push, ONCE PRN Other, Hypersensitivity Reaction, Starting on Mon06/07/23 at 1433, Until Cynthia 06/08/23 at 1432, For 24 hours EPINEPHrine 1 MG/ML inj 0.3 mg 0.3 mg, Intramuscular, ONCE PRN Other, Hypersensitivity Reaction or Anaphylaxis, Starting on Mon06/07/23 at 1433, Until Cynthia 06/08/23 at 1432, For 24 hours hEParin 100 UNIT/ML Lock Flush inj 500 Units 500 Units (5 mL), IV Lock, PRN Other, IV Flush, Starting on Mon06/07/23 at 1433, Until Cynthia 06/08/23 at 1432, For 24 hours, Do not flush if lock, PICC, or central line not in place; IV infusing or unable to flush. Hydrocortisone Sod Suc (PF) (Solu-Cortef) inj 100 mg 100 mg, IV Push, ONCE PRN Other, Hypersensitivity Reaction, Starting on Mon06/07/23 at 1433, Until Cynthia 06/08/23 at 1432, For 24 hours NSS infusion 500 mL, Intravenous, at 50 mL/hr, CONTINUOUS, Starting on Mon06/07/23 at 1545, Until Cynthia 06/08/23 at 0144 Start Infusion 06/07/2023 2:25 PM EST 500 mL 50 mL/hr oxygen GAS Inhalation, OXYGEN, First dose on Mon06/07/23 at 1600, Until Discontinued, Device/Managed by: Low Flow Device, Goal SPO2 (%): 91-95, Starting Device: Nasal Cannula, Initial Flow Rate (LPM): 2, Lowest Support: Nasal Cannula: Flow 0-6 LPM. Titrate up/down by 1 LPM., Higher Support: Non-Rebreather (NRB) Mask: Minimum of 10 LPM. Titrate to maintain bag inflation., Titration Interval: Q2 minutes and as needed., Notify Provider: For sudden DECREASE in resting SPO2 to less than 85% and when escalating delivery device., Wean patient off Oxygen when the oxygen saturation is greater than or equal to 93% sodium chloride 0.9 % flush central line 10 mL 10 mL, IV Push, PRN Other, IV Flush, Starting on Mon06/07/23 at 1433, Until Cynthia 06/08/23 at 1432, For 24 hours, Do not flush if lock, PICC, or central line not in place; IV infusing or unable to flush. Inactive Administered Medications - up to 3 most recent administrations Medication Order MAR Action Action Date Dose Rate Site Iron Sucrose (Venofer) 300 mg in NSS 250 mL ivpb 300 mg, IV Piggyback, ONCE, 1 dose, On Mon06/07/23 at 1615, Administer over 90 Minutes Start Infusion 06/07/2023 2:25 PM EST 300 mg 166.67 mL/hr documented in this encounter Care Teams Yarn Bleaching Machine Operator Relationship Specialty Start Date End Date Matilde Mauricio DO 293 [place] [address] PCP - General Family Medicine 12/15/22 documented as of this encounter
--- OUTSIDE RECORDS SUMMARY | 2023-06-09 15:29 | External Medical Summary | Summary of Care ---
Author Name Unknown Organization [facility] Address [address] [place] [facility] [place] [address] Phone [phone] Care Team Providers Care Wine Cellar Worker Name Role Phone Matilde Thrasher DO Primary Care Provider [phone] Reason for Visit * Reason Comments Medication Refill Encounter Details Date Type Department Care Team (Late st Contact Info) Description 06/05/2023 Refill Family Practice [address], [place] 293 [place] [address] Matilde Thrasher, 293 [place] [address] Neuropathy; Bilateral leg pain Allergies No known active allergiesdocumented as of this encounter (statuses as of 06/07/2023) Medications Medication Sig Dispensed Refills Start Date End Date Status acetaminophen (TYLENOL) 500 MG TabletIndications:P ain Take 2 Tablets by mouth every 6 hours as needed for Pain or Fever. 100 Tab 0 04/18/2017 Active Polyethylene Glycol 3350 17 GM/SCOOP Oral PowderIndications:C onstipation Take 17 g by mouth as needed for Constipation. Dissolve one heaping tablespoon in 8 ounces of water or juice. 1 Bottle 2 04/18/2017 Active Vitamin D 50 MCG (2000 UT) Oral CapsuleIndications: Vitamin D deficiency Take 1 capsule by mouth once daily 90 Cap 1 06/22/2020 Active LORazepam 1 MG Oral Tablet (Ativan)Indications :LORENA (generalized anxiety disorder) Take by mouth 1 Tablet daily as needed for Anxiety. 15 Tablet 0 10/15/2021 Active Modafinil 200 MG Oral Tablet (Provigil)Indicatio ns:Sleep Disorder Take 1 Tablet by mouth in the morning and 1 Tablet in the evening. 0 05/13/2022 Active Lidocaine 4 % External PatchIndications:Pa in Place 1 Patch topically on the skin daily as needed for Pain. 0 Active Docusate Sodium 100 MG Oral CapsuleIndications: Constipation Take 1 Capsule by mouth daily as needed for Constipation. 0 Active Diclofenac Sodium 1 % External Gel (Voltaren)Indicatio ns:Pain Apply 2 g topically to affected area [...] Insulin Glargine Solostar 100 UNIT/ML Subcutaneous Solution Pen-injectorIndicat ions:Type 2 diabetes mellitus with hemoglobin A1c goal of less than 7.0% (HCC) Inject 30 units under the skin daily and increase as per MTM pharmacist with max TDD 45 units daily 45 mL 3 11/18/2022 Active Spironolactone 25 MG Oral Tablet (Aldactone)Indicati ons:Pulmonary hypertension (HCC) TAKE ONE-HALF TABLET BY MOUTH EVERY MORNING 50 Tablet 1 12/07/2022 4 Active Dexcom G7 Sensor Use as directed. Via DME 0 12/16/2022 Active Torsemide 100 MG Oral Tablet (Demadex)Indication s:HTN, goal below 140/90 Take 0.5 Tablets by mouth in the morning. 90 Tablet 3 12/22/2022 Active Atorvastatin Calcium 40 MG Oral Tablet (Lipitor)Indication s:Dyslipidemia TAKE ONE TABLET BY MOUTH EVERY MORNING 100 Tablet 3 01/26/2023 4 Active Fluticasone Propionate 50 MCG/ACT Nasal Suspension (Flonase)Indication s:Post-nasal drip Administer 2 Sprays into each nostril [...] 05/05/2023 Sertraline HCl 100 MG Oral Tablet (Zoloft)Indications :LORENA (generalized anxiety disorder) Take 1 Tablet by mouth in the morning. 100 Tablet 3 05/05/2023 Active Sertraline HCl 50 MG Oral Tablet (Zoloft)Indications :Major depressive disorder, recurrent, moderate (HCC) Take 1 Tablet by mouth in the morning. Take with 100mg tablet to equal 150mg dose. 100 Tablet 3 05/05/2023 Active Vitamin B-12 500 MCG Oral Tablet (vitamin B-12) Take 1 Tablet by mouth in the morning. 0 Active HYDROcodone-Acetami nophen 10-325 MG Oral TabletIndications:P rimary osteoarthritis of both knees,Pseudogout of multiple joints Take 1 Tablet by mouth every 6 hours as needed for Pain, Mild. Fill date 06/09/2023 or later 120 Tablet 0 06/02/2023 Active Verapamil HCl ER 120 MG Oral Tablet Extended Release (Isoptin SR)Indications:Freq uent PVCs,NSVT (nonsustained ventricular tachycardia) (HCC) TAKE ONE TABLET BY MOUTH EVERY OTHER DAY 45 Tablet 3 06/05/2023 5 Active Pregabalin 100 MG Oral Capsule (Lyrica)Indications :Neuropathy,Bilater al leg pain Take 1 Capsule by mouth in the morning and 1 Capsule at noon and 1 Capsule before bedtime. 90 Capsule 3 06/07/2023 Active Pregabalin 100 MG Oral Capsule (Lyrica)Indications :Neuropathy,Bilater al leg pain Take 1 Capsule by mouth in the morning and 1 Capsule at noon and 1 Capsule before bedtime. 90 Capsule 3 02/23/2023 4 Discontinu ed(Refill) documented as of this encounter (statuses as [...] Major depressive disorder, recurrent, moderate 0 10/19/2016 longterm current use of systemic steroids 03/26 Pseudogout [...] mRNA, LNP-s, No Pre serve, 2-Dose Series (CONSTRVCT) 03/04/2021,06/30/2020,06/09/2020 COVID-19, LNP-s, No Preserve , Pool-sucrose, Ages 12+ (Pfizer) 12/07/2021 COVID-19, MRNA-LNP, 23-24, P F, 30 MCG/0.3 mL, 12 YRS AND ABOVE, IM (PFIZER-Comirnaty) 03/07/2023 Covid-19, Mrna, Lnp-s, Pf, B ivalent, [...] on file documented as of this encounter Miscellaneous Notes * Telephone Encounter - Matilde Thrasher DO - 06/07/2023 9:14 AM ESTSigned Prescriptions: Disp Refills Pregabalin 100 MG Oral Capsule (Lyrica) 90 Cap*3 Sig: Take 1 Capsule by mouth in the morning and 1 Capsule at noon and 1 Capsule before bedtime. Authorizing Provider: MATILDE THRASHER * Telephone Encounter - Leilani De La Fuente clinical nurse - 06/06/2023 3:36 PM EST pt calling to check on status of rx. Caller can be reached at [phone]. Thank you, [facility] Clinical Manager II [facility] ([facility]) (formerly Telepharmacy) 06/06/2023,3:36 PM * Telephone Encounter - Apple Marks [facility] - 06/06/2023 12:26 PM ESTPending Prescriptions: Disp Refills Pregabalin 100 MG Oral Capsule (Lyrica) 90 Cap*3 Sig: Take 1 Capsule by mouth in the morning and 1 Capsule at noon and 1 Capsule before bedtime. * Telephone Encounter - Apple Marks [facility] - 06/06/2023 12:25 PM EST I have reviewed the patients controlled substance dispensing history in the Prescription Drug Monitoring Program in compliance with the [facility] regulations before prescribing a controlled substance. PDMP checked on 06/06/2023. Pending Prescriptions: Disp Refills Pregabalin 100 MG Oral Capsule (Lyrica) 90 Cap*3 Sig: Take 1 Capsule by mouth in the morning and 1 Capsule at noon and 1 Capsule before bedtime. Last Visit: 05/05/2023 (in office), 11/03/2022 (telemedicine) Next Visit: 06/12/2023 Date medication was last filled: 05/12/23 Date medication is due for refill: 06/10/23 Pharmacy: [facility] Is this request for a controlled substance? Yes and Urine Drug Screen was completed Toxicology results: Results for orders placed or performed in visit on 09/21/22 PAIN MANAGEMENT DRUG PANEL, URINE W/ INTERPRETATION Result Value Compliance Interpretation Based on the medication information provided: The presence of hydrocodone, dihydrocodeine and hydromorphone is CONSISTENT with hydrocodone use. Amphetamines Screen, U Negative Benzodiazepines Screen, U Negative Cannabinoids Screen, U Negative Cocaine Metabolite Screen, U Negative Fentanyl Screen, U Negative Hydrocodone Screen, U Refer to confirmation results (A) Methadone Metabolite Screen, U Negative Morphine/Codeine Screen, U Refer to confirmation results (A) Oxycodone Screen, U Refer to confirmation results (A) Valid Interpretation Normal Creatinine, U 53 Narrative Cutoff Concentrations: Drug Level Amphetamines 500 ng/mL Benzodiazepines 100 ng/mL Cannabinoids 50 ng/mL Cocaine Metabolite 150 ng/mL Fentanyl 1 ng/mL Hydrocodone / Hydromorphone 300 ng/mL Methadone Metabolite 100 ng/mL Morphine / Codeine 300 ng/mL Oxycodone / Oxymorphone 100 ng/mL Screening results are presumptive and can only be used for medical purposes. Confirmatory testing is available upon request. *Note: Due to a large number of results and/or encounters for the requested time period, some results have not been displayed. A complete set of results can be found in Results Review. Please approve if appropriate. Apple De La Torre Clinical Pharmacist Centralized Clinical Pharmacy Services ([facility]PS) (Formerly Telepharmacy) [phone] 06/06/2023, 12:25 PM documented in this encounter Plan of Treatment Upcoming Encounters Date Type Department Care Team (Late st Contact Info) Description 06/07/2023 2:30 PM EST Hem/Onc Treatment Hematology/[address] [address] [facility], Chair [address] Hem On[address] [place] [address] 06/08/2023 11:15 AM EST Immunization/Injecti on Hematology/Oncology Treatment, [address] [address] Nurse, Med 4 200 [facility] [place] [address] 06/12/2023 10:40 AM EST Office Visit Family Practice 65 [facility] 293 [place] [address] Matilde Thrasher DO 293 [place] [address] 06/30/2023 10:40 AM EST Laboratory Laboratory [address] [place] [phone] [place], Lab [place] [address] [address] [place] [address] 06/30/2023 11:45 AM EST Immunization/Injecti on Hematology/Oncology Treatment, [address] [address] Nurse, Med 4 [address] [place] [address] 07/21/2023 2:00 PM EDT Office Visit Hematology/Oncology [facility] [address] [place] [address] Eryn Morris CRNP [address] [facility] [place] [address] 09/27/2023 10:30 AM EDT Office Visit Rheumatology [facility] [address] [place] [address] Tommy Rodriguez PA-C [address] [place], [place] [address] 01/11/2024 4:00 PM EDT Cardiac Studies Cardiac Studies, [facility] [address] [facility] [place] [address] Scheduled Procedures Name Priority Associated Diagnoses Date/Ti [...] Additional history exists CKD PHOS USE SMARTSET 37729 12/14/202311/23, 01/05/2022, 05/08/2020, Additional history exists Diabetic Eye Exam 03/10/2024 03/10/2023, , 02/16/2023, Additional history exists Depression Screening 05/05/2024 05/05/2023 O2 ASSESSMENT COMPLETED IN PAST YEAR FOR COPD 05/23/2024 05/23/2023 CKD HGB USE SMARTSET 56468 06/02/202406/02, 06/02/2023, 05/26/2023, Additional history exists Lipid [...] as of this encounter Visit Diagnoses Diagnosis Neuropathy Mononeuritis of unspecified site Bilateral leg pain Pain in limb documented in this encounter Care Teams Wine Cellar Worker Relationship Specialty Start Date End Date Matilde Thrasher DO [address] [place] [address] PCP - General Family Medicine 12/15/22 documented as of this encounter
--- OUTSIDE RECORDS SUMMARY | 2023-06-09 15:29 | External Medical Summary | Summary of Care ---
Author Name Unknown Organization [facility] Address [address] [place] [address] Phone [phone] Care Team Providers Care Recycling Collections Driver Name Role Phone Matilde Mauricio Primary Care Provider [phone] Encounter Details Date Type Department Care Team (Late st Contact Info) Description 05/30/2023 Orders Only Hematology/Oncology [facility] 200 [facility] [place] [address] Eryn Morris CRNP [address] [place] [address] Allergies No known active allergiesdocumented as of this encounter (statuses as of 06/05/2023) Medications Medication Sig Dispensed Refills Start Date [...] times a day as needed. 0 Active FundriseTouch Verio w/Device Kit Use to test blood sugars 1 time a day E11.9 1 Kit 0 09/14/2022 Active OneTouch Verio In Vitro Strip (Glucose Blood) Use to test blood sugars 1 time a day E11.9 100 Strip 3 09/14/2022 Active Verapamil HCl ER 120 MG Oral Tablet Extended Release (Isoptin SR)Indications:Freq uent PVCs,NSVT (nonsustained ventricular tachycardia) (HCC) TAKE ONE TABLET BY MOUTH EVERY OTHER DAY 45 Tablet 3 08/26/2022 08/26/2023 Active Folic Acid 1 MG Oral Tablet TAKE ONE TABLET BY MOUTH EVERY MORNING 100 Tablet 1 06/06/2022 07/10/2023 Active Insulin Glargine Solostar 100 UNIT/ML Subcutaneous Solution Pen-injectorIndicat ions:Type 2 diabetes mellitus with hemoglobin A1c goal of less than 7.0% ([facility]) Inject 30 units under the skin daily and increase as per MTM pharmacist with max TDD 45 units daily 45 mL 3 11/18/2022 Active Spironolactone 25 MG Oral Tablet (Aldactone)Indicati ons:Pulmonary hypertension (HCC) TAKE ONE-HALF TABLET BY MOUTH EVERY MORNING 50 Tablet 1 12/07/2022 12/07/2023 Active Dexcom G7 Sensor Use as directed. Via DME 0 12/16/2022 Active Torsemide 100 MG Oral Tablet (Demadex)Indication s:HTN, goal below 140/90 Take 0.5 Tablets by mouth in the morning. 90 Tablet 3 12/22/2022 Active Atorvastatin Calcium 40 MG Oral Tablet (Lipitor)Indication s:Dyslipidemia TAKE ONE TABLET BY MOUTH EVERY MORNING 100 Tablet 3 01/26/2023 01/26/2024 Active Fluticasone Propionate 50 MCG/ACT Nasal Suspension [...] MOUTH EVERY MORNING 100 Tablet 3 02/15/2023 02/15/2024 Active Pregabalin 100 MG Oral Capsule (Lyrica)Indications :Neuropathy,Bilater al leg pain Take 1 Capsule by mouth in the morning and 1 Capsule at noon and 1 Capsule before bedtime. 90 Capsule 3 02/23/2023 Active Ozempic (2 MG/DOSE) 8 MG/3ML Subcutaneous Solution Pen-injector (Semaglutide (2 MG/DOSE)) INJECT 2 MG UNDER THE SKIN ONCE WEEKLY 9 mL 1 03/30/2023 03/29/2024 Active Additional Information Patient taking differently: Takes [...] by mouth in the morning. 0 Active documented as of this encounter (statuses as of 06/05/2023) Active Problems Problem Noted Date Diagnosed Date [...] Major depressive disorder, recurrent, moderate 0 10/19/2016 assisted current use of systemic steroids 03/26 Pseudogout of multiple joints 09/18/2014 DJD (degenerative joint disease) of knee 015 Pseudogout of knee 03/14/2014 Chronic narcotic use 12/23/2010 Type 2 diabetes mellitus wit h hemoglobin A1c goal of less than 7.0% 11/05/2009 Overview: ICD-10 update of inactive term documented as of this encounter (statuses as of 06/05/2023) Resolved Problems Problem Noted Date Diagnosed Date [...] as of this encounter (statuses as of 06/05/2023) Immunizations Name Administration Dates Next Due COVID-19 mRNA, LNP-s, No Pre serve, 2-Dose Series ([employer]) 03/04/2021,06/30/2020,06/09/2020 COVID-19, LNP-s, No Preserve , Pool-sucrose, Ages 12+ (Pfizer) 12/07/2021 COVID-19, MRNA-LNP, 23-24, P F, 30 MCG/0.3 mL, 12 YRS AND ABOVE, IM ([employer]-Comirnaty) 03/07/2023 Covid-19, Mrna, Lnp-s, Pf, B ivalent, [...] 2:30 PM EST Hem/Onc Treatment Hematology/Oncology Treatment, [place] 200 [place] [address] [facility], Chair 3 Hem Onc [facility] 200 [facility] [place], [place] [address] 06/08/2023 11:15 AM EST Immunization/Injecti on Hematology/Oncology Treatment, [place] 200 [facility], [place] [address] Nurse, Med 4 200 [facility] [place], [place] [address] 06/12/2023 10:40 AM EST Office Visit Family Practice [address] [place] [address] 293 [facility], [place] [address] Matilde Mauricio DO 293 [facility], [place] [address] 06/30/2023 10:40 AM EST Laboratory Laboratory [facility] 200 [facility] [place], [place] [phone] Park, Lab [address] [place], [place] [address] 06/30/2023 11:45 AM EST Immunization/Injecti on Hematology/Oncology Treatment, [place] 200 [facility], [place] [address] Nurse, Med 4 [facility] [place], [place] [address] 07/21/2023 2:00 PM EDT Office Visit Hematology/Oncology [facility] 200 [facility] [place], [place] [address] Eryn Morris CRNP [address] [place] [address] [place] [address] 09/27/2023 10:30 AM EDT Office Visit Rheumatology [place] [address] [employer] [place], [place] [address] Tommy Rodriguez PA-C [facility] [place] [address] 01/11/2024 4:00 PM EDT Cardiac Studies Cardiac Studies, [facility] [address] [place] [address] Scheduled Procedures Name Priority Associated Diagnoses Date/Ti [...] Additional history exists CKD PHOS USE SMARTSET 65079 12/14/202311/23, 01/05/2022, 05/08/2020, Additional history exists Diabetic Eye Exam 03/10/2024 03/10/2023, , 02/16/2023, Additional history exists Depression Screening 05/05/2024 05/05/2023 O2 ASSESSMENT COMPLETED IN PAST YEAR FOR COPD 05/23/2024 05/23/2023 CKD HGB USE SMARTSET 83183 06/02/202406/02, 06/02/2023, 05/26/2023, Additional history exists Lipid [...] Not on filedocumented as of this encounter Care Teams Recycling Collections Driver Relationship Specialty Start Date End Date Matilde Mauricio DO 293 [place] [address] PCP - General Family Medicine 12/15/22 documented as of this encounter
--- OUTSIDE RECORDS SUMMARY | 2023-06-09 15:29 | External Medical Summary | Summary of Care ---
Author Name Unknown Organization [facility] Address [address] [facility] [place] [address] Phone [phone] Care Team Providers Care Agricultural Researcher Name Role Phone Matilde Mauricio Primary Care Provider + [phone] Reason for Visit * Reason Onset Date Comments Medication Refill 05/31/2023 Encounter Details Date Type Department Care Team (Late st Contact Info) Description 05/31/2023 Refill Rheumatology [place] [address] [employer] [place] [address] Ruel Preston MD [facility] [employer] [facility] [place] [address] Primary osteoarthritis of both knees; Pseudogout of multiple joints Allergies No known active allergiesdocumented as of this encounter (statuses as of 06/02/2023) Medications Medication Sig Dispensed Refills Start Date [...] times a day as needed. 0 Active StyleTreadTouch Verio w/Device Kit Use to test blood sugars 1 time a day E11.9 1 Kit 0 09/14/2022 Active StyleTreadTouch Verio In Vitro Strip (Glucose Blood) Use to test blood sugars 1 time a day E11.9 100 Strip 3 09/14/2022 Active Verapamil HCl ER 120 MG Oral Tablet Extended Release (Isoptin SR)Indications:Freq uent PVCs,NSVT (nonsustained ventricular tachycardia) ([facility]) TAKE ONE TABLET BY MOUTH EVERY OTHER DAY 45 Tablet 3 08/26/2022 4 Active Folic Acid 1 MG Oral Tablet [...] MORNING 100 Tablet 3 02/15/2023 4 Active Pregabalin 100 MG Oral Capsule (Lyrica)Indications [...] or later 120 Tablet 0 06/02/2023 Active HYDROcodone-Acetami nophen 10-325 MG Oral TabletIndications:P rimary osteoarthritis of both knees,Pseudogout of multiple joints Take 1 Tablet by mouth every 6 hours as needed for Pain, Mild. Fill date 05/06/2023 or later 120 Tablet 0 05/04/2023 Discontinu ed(Refill) documented as of this encounter (statuses as of 06/02/2023) Active Problems Problem Noted Date Diagnosed Date [...] Major depressive disorder, recurrent, moderate 0 10/19/2016 terminal carman current use of systemic steroids 03/26 Pseudogout of multiple joints 09/18/2014 DJD (degenerative joint disease) of knee 015 Pseudogout of knee 03/14/2014 Chronic narcotic use 12/23/2010 Type 2 diabetes mellitus wit h hemoglobin A1c goal of less than 7.0% 11/05/2009 Overview: ICD-10 update of inactive term documented as of this encounter (statuses as of 06/02/2023) Resolved Problems Problem Noted Date Diagnosed Date [...] as of this encounter (statuses as of 06/02/2023) Immunizations Name Administration Dates Next Due COVID-19 [...] encounter Miscellaneous Notes * Telephone Encounter - Ruel Preston MD - 06/02/2023 3:35 PM ESTSigned Prescriptions: Disp Refills HYDROcodone-Acetaminophen 10-325 MG Oral T*120 Ta*0 Sig: Take 1 Tablet by mouth every 6 hours as needed for Pain, Mild. Fill date 06/09/2023 or laterAuthorizing Provider: RUEL PRESTON * Telephone Encounter - Ruel Preston MD - 06/02/2023 3:34 PM EST I have reviewed the patients controlled substance dispensing history in the Prescription Drug Monitoring Program in compliance with the [facility] regulations before prescribing a controlled substance. Last Tox Screen Results: Results for orders placed or performed in [...] results can be found in Results Review. * Telephone Encounter - Nubia Cristina LPN - 06/02/2023 2:30 PM ESTPending Prescriptions: Disp Refills HYDROcodone-Acetaminophen 10-325 MG Oral T*120 Ta*0 Sig: Take 1 Tablet by mouth every 6 hours as needed for Pain, Mild. Fill date 05/06/2023 or later * Telephone Encounter - Gianna Price ReTargeter - 06/02/2023 12:52 PM EST Pending Prescriptions: Disp Refills HYDROcodone-Acetaminophen 10-325 MG Oral T*120 Ta*0 Sig: Take 1 Tablet by mouth every 6 hours as needed for Pain, Mild. Fill date 05/06/2023 or later * Telephone Encounter - Gianna PriceLINCOLN - 06/02/2023 12:51 PM EST Patient is up to date for office visits. Pending Prescriptions: Disp Refills HYDROcodone-Acetaminophen 10-325 MG Oral *120 Ta*0 Sig: Take 1 Tablet by mouth every 6 hours as needed for Pain, Mild. Fill date 05/06/2023 or later Last Visit: 05/17/2023 (in office), Visit date not found (telemedicine) Next Visit: 09/27/2023 If no future appointments scheduled, and last appointment is greater than a year ago, please schedule patient for a follow-up appointment Last date the medication was ordered: 05/04 Pharmacy: [id number] [facility] Is this request for a controlled substance?Yes, and Urine Drug Screen was completed Urine Drug Screen: Results for orders placed or performed in [...] results can be found in Results Review. Patient Phone Numbers Labs: Lab Results Component Value Date/Time CREAT 0.9 05/05/2023 02:39 PM CREAT 1.30 12/05/2022 12:00 AM CREAT 1.9 (H) 05/08/2020 10:10 AM POTASSIUM 4.5 05/05/2023 02:39 PM POTASSIUM 4.0 12/05/2022 12:00 AM POTASSIUM 4.1 05/08/2020 10:10 AM TSH 1.88 11/18/2021 11:10 AM TSH 2.86 09/18/2014 03:28 PM LDLCALC 39 04/07/2023 10:50 AM LDLCALC 134 (H) 07/27/2021 12:00 AM LDLCALC 71 04/04/2019 12:20 PM LDLDIRECT 93 05/20/2015 12:00 AM LDLDIRECT 113 04/12/2006 09:40 AM ALT 6 (L) 05/05/2023 02:39 PM ALT 13 05/08/2020 10:10 AM HGBA1C 6.5 (A) 12/05/2022 12:00 AM HGBA1C 7.4 (H) 05/08/2020 10:10 AM documented in this encounter Plan of Treatment Upcoming Encounters Date Type Department Care Team (Late st Contact Info) Description 06/06/2023 11:00 AM EST Hem/Onc Treatment Hematology/Oncology Treatment, [place] [address] [place], [place] [address] [facility], Chair 10 [facility] [address] 06/12/2023 10:40 AM EST Office Visit Family Practice [address], [place] 293 [facility] [place], [place] [phone] Matilde Mauricio DO 293 [facility], [place] [address] 06/30/2023 10:40 AM EST Laboratory Laboratory [facility] [place] [address] [facility] [phone] [place] [facility] 200 [facility] [place] [address] 06/30/2023 11:45 AM EST Immunization/Injecti on Hematology/Oncology Treatment, [place] [address] [place] [address] Nurse, Med 200 [facility] [place] [address] 07/21/2023 2:00 PM EDT Office Visit Hematology/Oncology [facility] 200 [facility] [place] [address] Eryn Morris CRNP 400 [facility] [place] [address] 09/27/2023 10:30 AM EDT Office Visit Rheumatology [place] [phone] [employer] [place] [address] Tommy Rodriguez PA-C [address] [place] [address] 01/11/2024 4:00 PM EDT Cardiac Studies Cardiac Studies, [facility] 132 [facility] [place] [address] Scheduled Procedures Name Priority Associated Diagnoses Date/Ti [...] Additional history exists CKD PHOS USE SMARTSET 16100 12/14/202311/23, 01/05/2022, 05/08/2020, Additional history exists Diabetic Eye Exam 03/10/2024 03/10/2023, , 02/16/2023, Additional history exists Depression Screening 05/05/2024 05/05/2023 O2 ASSESSMENT COMPLETED IN PAST YEAR FOR COPD 05/23/2024 05/23/2023 CKD HGB USE SMARTSET 85032 06/02/202406/02, 06/02/2023, 05/26/2023, Additional history exists Lipid [...] as of this encounter Visit Diagnoses Diagnosis Primary osteoarthritis of both knees Primary localized osteoarthrosis, lower leg 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
--- OUTSIDE RECORDS SUMMARY | 2023-06-09 15:29 | External Medical Summary ---
Author Name Unknown Address Unknown Organization K09:[facility] [place] [address] Laboratory Report Ordering Provider Test Date Status KERRIE ESPINOZA 06/02/2023 10:33:05 Final Observation Date Value Abnormality Reference (Units ) Status WBC, Total 06/02/2023 10:33:05 6.92 4.00-10.8 0 (K/uL) Final RBC 06/02/2023 10:33:05 4.28 4.50-5.25 (M/uL) Final Hemoglobin 06/02/2023 10:33:05 9.7 Below low normal 14 .0-16.8 (g/dL) Final HCT 06/02/2023 10:33:05 33.8 Below low normal 40. 0-48.4 (%) Final MCV 06/02/2023 10:33:05 79.0 82.0-99.5 (fL) Final MCH 06/02/2023 10:33:05 22.7 27.0-34.0 (pg) Final MCHC 06/02/2023 10:33:05 28.7 32.0-36.0 (g/dL) Final RDW 06/02/2023 10:33:05 20.9 11.5-15.5 (%) Final Platelets 06/02/2023 10:33:05 293 140-400 (K /uL) Final MPV 06/02/2023 10:33:05 8.0 6.6-11.1 ( fL) Final Performing Location [facility] [place] [address]
--- OUTSIDE RECORDS SUMMARY | 2023-06-09 15:29 | External Medical Summary | Summary of Care ---
Author Name Unknown Organization [facility] Address [address] [facility] [place] [address] Phone [phone] Care Team Providers Care Prop Cutter Name Role Phone Matilde Thrasher Primary Care Provider [phone] Reason for Visit * Reason Comments Medication Refill Encounter Details Date Type Department Care Team (Late st Contact Info) Description 06/05/2023 Refill Family Practice [address], [place] 293 [facility] [place] [phone] Akash Remy, DO [address] [place] [address] Frequent PVCs; NSVT (nonsustained ventricular tachycardia) ([facility]) Allergies No known active allergiesdocumented as of [...] Vitamin D 50 MCG (1999 UT) Oral CapsuleIndications: Vitamin D deficiency Take [...] DAY 45 Tablet 3 06/05/2023 5 Active Verapamil HCl ER 120 MG Oral Tablet Extended Release (Isoptin SR)Indications:Freq uent PVCs,NSVT (nonsustained ventricular tachycardia) (HCC) TAKE ONE TABLET BY MOUTH EVERY OTHER DAY 45 Tablet 3 08/26/2022 4 Discontinu ed(Refill) documented as of this [...] Major depressive disorder, recurrent, moderate 0 10/19/2016 alf current use of systemic steroids 03/26 Pseudogout [...] mRNA, LNP-s, No Pre serve, 2-Dose Series ([employer]) 03/04/2021,06/30/2020,06/09/2020 COVID-19, LNP-s, No Preserve , Pool-sucrose, Ages 12+ (Pfizer) 12/07/2021 COVID-19, MRNA-LNP, 23-24, P F, 30 MCG/0.3 mL, 12 YRS AND ABOVE, IM ([facility]) 03/07/2023 Covid-19, Mrna, Lnp-s, Pf, B ivalent, [...] encounter Miscellaneous Notes * Telephone Encounter - Akash Joy [facility] - 06/05/2023 4:48 PM ESTSigned Prescriptions: Disp Refills Verapamil HCl ER 120 MG Oral Tablet Extend*45 Tab*3 Sig: TAKE ONE TABLET BY MOUTH EVERY OTHER DAYAuthorizing Provider: MATILDE THRASHER User: AKASH JOY documented in this encounter Plan of Treatment Upcoming Encounters Date Type Department Care Team (Late st Contact Info) Description 06/07/2023 2:30 PM EST Hem/Onc Treatment Hematology/Oncology Treatment, [place] 200 [place] [address] [facility], Chair 3 Hem Onc [address] [place] [address] 06/08/2023 11:15 AM EST Immunization/Injecti on Hematology/Oncology Treatment, [place] 200 [facility] [address] Nurse, Med [address] [place], [place] [address] [address] 06/12/2023 10:40 AM EST Office Visit Family Practice [address], [place] 293 [facility], [place] [phone] Matilde Thrasher, DO [address] [place] [address] 06/30/2023 10:40 AM EST Laboratory Laboratory [facility] [address] [place] [phone] [place], Lab [address] [facility] [place] [address] 06/30/2023 11:45 AM EST Immunization/Injecti on Hematology/Oncology Treatment, [place] [address] [place] [address] Nurse, Med [address] [place] [address] 07/21/2023 2:00 PM EDT Office Visit Hematology/Oncology [facility] [address] [place] [address] Eryn Morris, [place] 400 [facility] [place] [address] 09/27/2023 10:30 AM EDT Office Visit Rheumatology [facility] [address] [place] [address] Tommy Rodriguez PA-C [address] [employer] [place] [address] 01/11/2024 4:00 PM EDT Cardiac Studies Cardiac Studies, [facility] 132 [facility] [place] [address] Scheduled Procedures Name Priority Associated Diagnoses Date/Ti [...] Additional history exists CKD PHOS USE SMARTSET 74230 12/14/202311/23, 01/05/2022, 05/08/2020, Additional history exists Diabetic Eye Exam 03/10/2024 03/10/2023, , 02/16/2023, Additional history exists Depression Screening 05/05/2024 05/05/2023 O2 ASSESSMENT COMPLETED IN PAST YEAR FOR COPD 05/23/2024 05/23/2023 CKD HGB USE SMARTSET 11279 06/02/202406/02, 06/02/2023, 05/26/2023, Additional history exists Lipid [...] as of this encounter Visit Diagnoses Diagnosis Frequent PVCs Other premature beats NSVT (nonsustained ventricular tachycardia) (HCC) Paroxysmal ventricular tachycardia documented in this encounter Care Teams Prop Cutter Relationship Specialty Start Date End Date Matilde Thrasher DO 293 [place] [address] PCP - General Family Medicine 12/15/22 documented as of this encounter
--- OUTSIDE RECORDS SUMMARY | 2023-06-09 15:29 | External Medical Summary | Summary of Care ---
Author Name Unknown Organization [facility] Address [address] [facility] [place] [address] Phone [phone] Care Team Providers Care Clinical Pharmacologist Name Role Phone Matilde Mauricio Primary Care Provider + [phone] Reason for Visit * Reason Comments Medication Administration Procrit 40,000 units * Episode Based Medications (Routine) - Authorized Specialty Diagnoses / Procedures Referred By Contjeronimo t Referred To Contact Diagnoses Chronic kidney disease, stage 3b (HCC) Procedures NE EPOETIN KAI, NON-ESRD Eryn Morris CRNP [address] [place] [address] Anc Hem/Onc [place] DEPT CLOSED - 03/07/[address] [place] [address] Referral ID Status Reason Start Date Expiration Date V isits Requested Visits Authorized [id number] Authorized 12/21/2022 12/23/2023 999 [id number] Encounter Details Date Type Department Care Team (Late st Contact Info) Description 06/02/2023 11:30 AM EST Immunization/I njection Hematology/Oncology Treatment, [place] [address] [place] [address] Nurse, Med [address] [place] [address] [address] Chronic kidney disease, stage 3b (HCC)* Allergies [...] times a day as needed. 0 Active Clean Plates Verio w/Device Kit Use to test blood sugars 1 time a day E11.9 1 Kit 0 09/14/2022 Active Clean Plates Verio In Vitro Strip (Glucose Blood) Use [...] 4 Active Pregabalin 100 MG Oral Capsule (Lyrica)Indications: [...] differently: Takes on Fridays, Reported on 05/05/2023 HYDROcodone-Acetamin ophen 10-325 MG Oral TabletIndications:Pr imary osteoarthritis of both knees,Pseudogout of multiple joints Take 1 Tablet by mouth every 6 hours as needed for Pain, Mild. Fill date 05/06/2023 or later 120 Tablet 0 05/04/2023 Active Sertraline HCl 100 MG Oral Tablet (Zoloft)Indications: [...] Major depressive disorder, recurrent, moderate 0 10/19/2016 group home current use of systemic steroids 03/26 Pseudogout [...] mRNA, LNP-s, No Pre serve, 2-Dose Series ([employer]) 03/04/2021,06/30/2020,06/09/2020 COVID-19, LNP-s, No Preserve , Pool-sucrose, Ages 12+ (Pfizer) 12/07/2021 COVID-19, MRNA-LNP, 23-24, P F, 30 MCG/0.3 mL, 12 YRS AND ABOVE, IM ([facility]) 03/07/2023 Covid-19, Mrna, Lnp-s, Pf, B ivalent, 30 Mcg, IM, 12 yrs and above ([employer]) 04/12/2022 Pneumococcal Conjugate Vacc, 13 Valent (Prevnar) [...] Passive Smoke Exposure: Current Smokeless Tobacco: Never Tobacco Cessation:Counseling Given: Not Answered Comments:Pt had smoked for quite some time and then quit- restarted 10 [...] Sign Reading Time Taken Comments Blood Pressure 102/63 06/02/2023 10:58 AM EST Pulse - - Temperature - - Respiratory Rate - - Oxygen Saturation - - Inhaled Oxygen Concentration - - Weight - - Height - - Body Mass Index - - documented in this encounter Nursing Notes * Imani Rajput LPN - 06/02/2023 11:11 AM EST Procrit 40,000 units administered SQ into right upper extremity per standing order Patient tolerated injection and will return in 1 week HGB 9.7 documented in this encounter Plan of Treatment Upcoming Encounters Date Type Department Care Team (Late st Contact Info) Description 06/06/2023 11:00 AM EST Hem/Onc Treatment Hematology/Oncology Treatment, [place] [address] [place] [address] [facility], Chair 10 Hem Onc Scenery [facility] [address] 06/12/2023 10:40 AM EST Office Visit Family Practice [address], [place] [address] [facility] [phone] Matilde Mauricio, DO [address] [place] [address] 06/30/2023 10:40 AM EST Laboratory Laboratory [facility] [address] [place] [phone] [facility] Lab Scenery 200 [facility] [place] [address] 06/30/2023 11:45 AM EST Immunization/Injecti on Hematology/Oncology Treatment, [place] [address] [place] [address] Nurse, Med 4 200 [facility] [place] [address] 07/21/2023 2:00 PM EDT Office Visit Hematology/Oncology [facility] [address] [place] [address] Eryn Morris CRNP [address] [facility] [place] [address] 09/27/2023 10:30 AM EDT Office Visit Rheumatology [facility] [address] [place] [address] Tommy Rodriguez PA-C [address] [employer] [employer] [place] [address] 01/11/2024 4:00 PM EDT Cardiac Studies Cardiac Studies, [facility] [address] [facility] [place] [address] Scheduled Procedures Name Priority Associated Diagnoses Date/Ti [...] Additional history exists CKD PHOS USE SMARTSET 83602 12/14/202311/23, 01/05/2022, 05/08/2020, Additional history exists Diabetic Eye Exam 03/10/2024 03/10/2023, , 02/16/2023, Additional history exists Depression Screening 05/05/2024 05/05/2023 O2 ASSESSMENT COMPLETED IN PAST YEAR FOR COPD 05/23/2024 05/23/2023 CKD HGB USE SMARTSET 32669 06/02/202406/02, 06/02/2023, 05/26/2023, Additional history exists Lipid [...] Action Date Dose Rate Site Epoetin Kai [address] UNIT/ML inj 40,000 Units 40,000 Units, Subcutaneous, ONCE, On Mon06/02/23 at 1130, For 1 dose Given 06/02/2023 11:08 AM EST 40,000 Units Arm Right Upper documented in this encounter Care Teams Clinical Pharmacologist Relationship Specialty Start Date End Date Matilde Mauricio DO [address] [place] [address] PCP - General Family Medicine 12/15/22 documented as of this encounter
--- OUTSIDE RECORDS SUMMARY | 2023-06-09 15:29 | External Medical Summary | Summary of Care ---
Author Name Unknown Organization [facility] Address [address] [facility] [place] [address] Phone [phone] Care Team Providers Care Mud Mixer Name Role Phone Matilde Mauricio Primary Care Provider Reason for Visit * Reason Comments Outpatient Testing Encounter Details Date Type Department Care Team (Late st Contact Info) Description 06/02/2023 11:00 AM EST Laboratory Laboratory [facility] [place] [address] [place] [phone] [place], Lab Scenery [address] [place] [address] Anemia due to stage 3 chronic kidney [...] times a day as needed. 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 [place] [address] Nurse, Med 4 [address] [place] [address] Chronic kidney disease, stage 3b (HCC)* 06/06/2023 11:00 AM EST Hem/Onc Treatment [facility]olog [facility], [place] [facility] [address] [facility], Chair 10 Hem Onc Scene [address] [place] [address] 06/09/2023 11:00 AM EST Laboratory Laboratory [facility] [place] [address] [place] [phone] [facility], Lab Scenery [address] [place] [address] 06/09/2023 11:30 AM EST Immunization/Inject ion Hematology/Oncolog y Treatment, [place] [address] [facility] [place] [address] Nurse, Med 4 [address] [place], [place] [address] 06/12/2023 10:40 AM EST Office Visit Family Practice [address], [place] [address] [place] [address] Matilde Mauricio DO 293 [facility], [place] [address] 06/16/2023 11:10 AM EST Laboratory Laboratory [facility] [address] [place] [phone] [facility] Lab Scenery [address] [place] [address] 06/16/2023 11:45 AM EST Immunization/Inject ion Hematology/Oncolog y Treatment, [place] 200 [facility], [place] [address] Nurse, Med 4 [address] [place] [address] 06/23/2023 11:00 AM EST Laboratory Laboratory [facility] [place] [address] [place] [phone] [facility] [place] [address] 06/23/2023 11:30 AM EST Immunization/Inject ion Hematology/Oncolog y Treatment, [place] 200 [facility], [place] [address] Nurse, Med [address] [facility] [place] [address] 07/21/2023 2:00 PM EDT Office Visit Hematology/Oncolog y [facility] 200 [facility] [place], [place] [address] Eryn Morris, BERENICE 400 [facility] [place] [address] 09/27/2023 10:30 AM EDT Office Visit Rheumatology [place] [phone] [employer] [place], [place] [address] Tommy Rodriguez PA-C [address] [employer] [place], [place] [address] 01/11/2024 4:00 PM EDT Cardiac Studies Cardiac Studies, [facility] [address] [facility] [place] [address] Scheduled Procedures Name Priority Associated Diagnoses Date/Ti [...] Additional history exists CKD PHOS USE SMARTSET 83225 12/14/202311/23, 01/05/2022, 05/08/2020, Additional history exists Diabetic Eye Exam 03/10/2024 03/10/2023, , 02/16/2023, Additional history exists Depression Screening 05/05/2024 05/05/2023 O2 ASSESSMENT COMPLETED IN PAST YEAR FOR COPD 05/23/2024 05/23/2023 CKD HGB USE SMARTSET 66963 06/02/202406/02, 06/02/2023, 05/26/2023, Additional history exists Lipid [...] Not on filedocumented as of this encounter Procedures Procedure Name Priority Date/Time Associated Diagnosis Comments DIFFERENTIAL, AUTOMATED STAT 06/02/2023 10:33 AM EST Anemia due to stage 3 chronic kidney disease, unspecified whether stage 3a or 3b CKD (HCC) CBC STAT 06/02/2023 10:33 AM EST Anemia due to stage 3 chronic kidney disease, unspecified whether stage 3a or 3b CKD (HCC) CBC STAT 06/02/2023 10:33 AM EST Anemia due to stage 3 chronic kidney disease, unspecified whether stage 3a or 3b CKD (HCC) documented in this encounter Results * (ABNORMAL) DIFFERENTIAL, AUTOMATED (06/02/2023 10:33 AM EST) WBC 6.92 4.00 - 10.80 K/uL 06/02/2023 10:38 AM EST [facility] 56-02 Neutrophils % 71.4 40.0 - 75.0 % 06/02/2023 10:38 AM EST [facility] 56-02 Lymphocytes % 14.7(L) 18.0 - 42.0 % 06/02/2023 10:38 AM EST [facility] 56-02 Monocytes % 12.4(H) 1.0 - 11.0 % 06/02/2023 10:38 AM EST [facility] 56-02 Eosinophils % 1.4 0.0 - 6.0 % 06/02/2023 10:38 AM EST [facility] 56-02 Basophils % 0.1 0.0 - 2.0 % 06/02/2023 10:38 AM [facility] 56-02 Absolute Neutrophils 4.93 1.80 - 7.70 K/uL 06/02/2023 10:38 AM [facility] 56-02 Absolute Lymphocytes 1.02 1.00 - 4.80 K/ul 06/02/2023 10:38 AM [facility] 56- Absolute Monocytes 0.86 0.00 - 1.10 K/uL 06/02/2023 10:38 AM [facility] 56-02 Absolute Eosinophils 0.10 0.00 - 0.70 K/uL 06/02/2023 10:38 AM [facility] 56- Absolute Basophils 0.01 0.00 - 0.20 K/uL 06/02/2023 10:38 AM [facility] 56- Blood Venous blood specimen / Unknown Venipuncture / Unknown 06/02/2023 10:33 AM EST 06/02/2023 10:34 AM EST Eryn NG LAB BLOOD ORDER [facility] 56- [address] [place] [address] * (ABNORMAL) CBC (06/02/2023 10:33 AM EST) WBC 6.92 4.00 - 10.80 K/uL 06/02/2023 10:38 AM [facility] 56- RBC 4.28 4.50 - 5.25 M/uL 06/02/2023 10:38 AM [facility] 56- HGB 9.7(L) 14.0 - 16.8 g/dL 06/02/2023 10:38 AM [facility] 56- HCT 33.8(L) 40.0 - 48.4 % 06/02/2023 10:38 AM [facility] 56- MCV 79.0 82.0 - 99.5 fL 06/02/2023 10:38 AM [facility] 56- MCH 22.7 27.0 - 34.0 pg 06/02/2023 10:38 AM [facility] 56 MCHC 28.7 32.0 - 36.0 g/dL 06/02/2023 10:38 AM [facility] 56 RDW 20.9 11.5 - 15.5 % 06/02/2023 10:38 AM [facility] 56 PLT 293 140 - 400 K/uL 06/02/2023 10:38 AM [facility] 56 MPV 8.0 6.6 - 11.1 fL 06/02/2023 10:38 AM [facility] 56 Blood Venous blood specimen / Unknown Venipuncture / Unknown 06/02/2023 10:33 AM EST 06/02/2023 10:34 AM EST Eryn NG LAB BLOOD ORDER [facility] [address] [place] [address] documented in this encounter Visit Diagnoses Diagnosis Chronic kidney disease, stage 3b (HCC)- Primary Anemia due to stage 3 chronic kidney disease, unspecified whether stage 3a or 3b CKD (HCC) documented in this encounter Care Teams Mud Mixer Relationship Specialty Start Date End Date Matilde Mauricio DO [address] [facility] [address] PCP - General Family Medicine 12/15/22 documented as of this encounter
--- OUTSIDE RECORDS SUMMARY | 2023-06-09 15:29 | External Medical Summary ---
Author Name Unknown Address Unknown Organization K09[facility] [place] [address] Laboratory Report Ordering Provider Test Date Status KERRIE ESPINOZA 06/02/2023 10:33:05 Final Observation Date Value Abnormality Reference (Units ) Status SYNC LEUKOCYTES IN BLOOD BY AUTOMATED COUNT 06/02/2023 10:33:05 6.92 4.00-10.80 (K/uL) Final Segs 06/02/2023 10:33:05 71.4 40.0-75.0 (%) Final Lymphs % 06/02/2023 10:33:05 14.7 Below low normal 18.0-42.0 (%) Final Monos 06/02/2023 10:33:05 12.4 Above high normal 1.0-11.0 (%) Final Eosinophils 06/02/2023 10:33:05 1.4 0.0-6.0 (%) Final Basos 06/02/2023 10:33:05 0.1 0.0-2.0 (%) Final Absolute Segs 06/02/2023 10:33:05 4.93 1.80-7.70 (K/uL) Final Lymphs, absolute 06/02/2023 10:33:05 1.02 1.00-4.80 (K/ul) Final Monos, Abs 06/02/2023 10:33:05 0.86 0.00-1.10 (K/uL) Final Eos, Abs 06/02/2023 10:33:05 0.10 0.00-0.70 (K/uL) Final Basos, Abs 06/02/2023 10:33:05 0.01 0.00-0.20 (K/uL) Final Performing Location [facility] [place] [address]
[2023-06-09] MEDS ORDERED: GLUCOSE 40% GEL 15 GM TUBE PO PRN (16:00)
[2023-06-09] MEDS ORDERED: DEXTROSE 50% 50 ML SYRINGE IV PRN (16:00)
[2023-06-09] MEDS ORDERED: GLUCAGON FOR INJ 1 MG VIAL IM PRN (16:00)
[2023-06-09] MEDS ORDERED: GLUCOSE 10 TAB/TUBE PO PRN (16:00)
[2023-06-09] MEDS: VERAPAMIL HCL 40 MG TAB PO SCH (16:15)
[2023-06-09] MEDS: INSULIN ASPART PER UNIT CHARGE SC SCH (16:59)
[2023-06-09] MEDS: LANTUS PER UNIT CHARGE SC ONE (17:02)
[2023-06-09] MEDS: oxyCODONE HCL IR 5 MG TAB (IMMEDIATE RELEASE) PO PRN (18:21)
[2023-06-09] MEDS: ASPIRIN 81 MG ECTAB PO SCH (22:05)
[2023-06-09] MEDS: DOCUSATE SODIUM 100 MG CAP PO SCH (22:05)
[2023-06-09] MEDS: SENNA 8.6 MG TAB PO SCH (22:06)
[2023-06-10] MEDS: INSULIN ASPART PER UNIT CHARGE SC SCH (00:03)
[2023-06-10] MEDS: TORSEMIDE 100 MG TAB PO SCH (07:37)
[2023-06-10] MEDS: SPIRONOLACTONE 12.5 MG TAB PO SCH (07:37)
[2023-06-10] MEDS: MULTIVITAMIN TAB PO SCH (07:37)
[2023-06-10] MEDS: SERTRALINE HCL 100 MG TABLET PO SCH (07:37)
[2023-06-10] MEDS: METOPROLOL SUCC 25MG EXT REL TAB PO SCH (07:37)
[2023-06-10] MEDS: ATORVASTATIN 40 MG TAB PO SCH (07:37)
[2023-06-10] MEDS: TAMSULOSIN HCL 0.4 MG CAP PO SCH (07:38)
[2023-06-10 08:53] LABS: Basophils # (auto) 0.02 K/uL (0.00-0.20); Basophils % (auto) 0.2 %; Eosinophils # (auto) 0.01 K/uL (0.00-0.50); Eosinophils % (auto) 0.1 %; Hematocrit (blood only) 34.3 % (42.0-52.0); Immature Granulocytes # (auto) 0.05 K/uL (0.01-0.20); Immature Granulocytes % (auto) 0.5 %; Lymphocytes # (auto) 0.85 K/uL (1.20-3.40); Lymphocytes % (auto) 9.1 %; Mean Corpuscular Hemoglobin 22.2 pg (25.0-34.0); Mean Corpuscular Hgb Conc 29.2 g/dL (32.0-36.0); Mean Corpuscular Volume 76.2 fL (80.0-100.0); Mean Platelet Volume 8.2 fL (9.4-12.4); Monocytes # (auto) 0.74 K/uL (0.11-0.59); Neutrophils # (auto) 7.62 K/uL (1.40-6.50); Neutrophils % (auto) 82.1 %; Platelet Count 307 K/uL (130-400); RDW Coefficient of Variation 19.5 % (11.5-14.5); White Blood Count 9.29 K/ul (4.8-10.8)
[2023-06-10 09:06] LABS: BUN Creatinine Ratio 16.8 (10-20); Calcium 8.5 mg/dl (8.6-10.3); Creatinine Clr Calc Pharmacy 62.8 ml/min; Est GFR (African American) 75.9 ml/min; Est GFR (Non-African American) 65.5 ml/min
[2023-06-10] MEDS: MAGNESIUM HYDROXIDE SUSP 30 ML UDC PO PRN (11:04)
[2023-06-10] MEDS: HYDROmorphone INJ 0.5 MG/0.5 ML SYR IV PRN (11:15)
[2023-06-10] MEDS: LANTUS PER UNIT CHARGE SC SCH (20:22)
--- NOTE | 2023-06-11 06:10 | Orthopedic Progress Note ---
Date of Service June 11, 2023 Assessment & Plan (1) Status post left knee replacement: Unfortunately he is having a lot of pain in his knee. This is not unexpected. He is also dealing with severe arthritis of his right knee. He has had very low ambulation status over the past few months. Will see how he does today with physical therapy but I would suspect he is better for discharge to a rehab facility. He is currently on aspirin for DVT prophylaxis. George Salazar was seen and examined at bedside this morning. He is having a lot of pain in his knee. He did not do well with therapy yesterday. He is very weak and deconditioned. He has no other complaints.. Review of Systems All systems reviewed & are unremarkable except as noted in HPI & below. Physical Exam On physical examination of the left knee, the dressing is clean and dry. His legs out full extension. He is neurovascular intact.. Results & Data Results & Data Laboratory Results . Diagnostic Findings . PG Care Time/CCT Total # of Minutes Spent Total Time Spent with Patient: Total time spent is greater than 50% in coordination of care (as documented) at patient's floor/unit and/or counseling patient: Coding Level of Care Code 74878 Post Operative Follow-Up Diagnoses Status post left knee replacement Z96.652
[2023-06-11] MEDS: CARBOHYDRATES FOR HYPOGLYCEMIA PO PRN (07:38)
--- NOTE | 2023-06-11 14:13 | Pharmacy Report ---
Pharmacy Glycemic Short Note 2 - Date of Service June 11, 2023 - Glycemic Short BSG Results (Last 24 hours): 06/10/23 06/10/23 06/11/23 16:34 20:17 07:33 POC Glucose 105 H 102 H 67 L* 06/11/23 06/11/23 07:51 11:43 POC Glucose 71 108 H OUTPATIENT ANTIDIABETIC REGIMEN: * Lantus 30-45 units SQ daily * Ozempic weekly * A1c = 6.9% ASSESSMENT: * Dennis is POD # 2 s/p L TKA * He was given a one time dose of Lantus 15 units on 06/09 PM for hyperglycemia. Patient also given a dose of dexamethasone IV yves-op. * Dennis has required little to no insulin for > 24 hours. Does not appear to be consuming carbohydrates. Will d/c basal insulin order and keep conservative novolog order. PLAN FOR INPATIENT GLYCEMIC CONTROL: * Hold outpatient oral diabetes medications * Basal insulin * none * Bolus insulin * NovoLog per scale ACHS or Q6hrs while NPO * Goal Range: Low 110 mg/dL - High 140 mg/dL * Correction Factor: 35 mg/dL/unit * Nutritional / Prandial insulin per carb ratio of 1 unit per 15 grams CHO consumed
--- NOTE | 2023-06-12 08:46 | Orthopedic Progress Note ---
Date of Service June 12, 2023 Assessment & Plan (1) Status post left knee replacement: Overall he is doing about as well as expected. There is some concerns about resuming some of his cardiac medications. He will likely be going to a rehab facility and I like to consult the hospitalist to help with his medical management and restarting some of his cardiac medications. He can be weightbearing as tolerated. He will be seen by physical therapy today for ambulation and range of motion exercises. He can be discharged to rehab facility later today after hospice consult and if a bed becomes available. George Salazar was seen and examined at bedside this morning. Overall he is doing okay. He says he is feeling okay but he is having a lot of pain in his left knee. He is still very limited by the arthritis in his right knee. He has been slow to work with physical therapy. He has no new complaints.. Review of Systems All systems reviewed & are unremarkable except as noted in HPI & below. Physical Exam On physical examination left knee, the dressing is clean and dry. His leg is out full extension. He has active dorsiflexion plantarflexion of his left ankle.. Results & Data Results & Data Laboratory Results . Diagnostic Findings . PG Care Time/CCT Total # of Minutes Spent Total Time Spent with Patient: Total time spent is greater than 50% in coordination of care (as documented) at patient's floor/unit and/or counseling patient: Coding Level of Care Code 79241 Post Operative Follow-Up Diagnoses Status post left knee replacement Z96.652
[2023-06-12] MEDS ORDERED: TORSEMIDE 20 MG TAB PO PRN (10:37)
--- NOTE | 2023-06-12 10:52 | Hospitalist Consultation ---
Date of Consultation June 12, 2023 Assessment & Plan (1) Status post left knee replacement: This is a 72 y/o male with insulin-requiring DM, HENRIK on CPAP, COPD, hx NSVT, HTN, CKD3b, JOHNIE, dyslipidemia, anxiety, PMR, and other history as outlined below who underwent left TKR by Dr. Dee on 06/09/23. Post-operatively there has been some confusion on his medication regimen and some of his cardiac meds have been held due to parameters. We have been consulted to assist with medication management. Pt was noted some mild exertional dyspnea and lightheadedness - he does have a history of chronic anemia. POD #3 left TKR - DVT prophylaxis, pain control and activity per primary team - Check labs due to hx of anemia, mild BULLARD, lightheadedness to r/o worsening of chronic anemia due to blood loss - Pt has not been taking diuretics consistently as outpatient but rather using only PRN - will discontinue scheduled torsemide and add prn lower dose only if needed for edema - Continue spironolactone, metoprolol succinate, and verapamil as ordered by PCP - Restart daily Miralax as patient takes outpatient (2) DM type 2 (diabetes mellitus, type 2): Glycemic pharmacist managing while patient admitted - appreciate input Pt has been having some lows while here so basal insulin held, using sliding scale instead Continue diabetic diet (3) HENRIK (obstructive sleep apnea): Pt is typically on CPAP at HS - Dr. Yoder's last note was reviewed - CPAP at HS ordered per last documented settings (4) HTN (hypertension): Chronic, stable Meds as per #1 (5) Dyslipidemia: Chronic, stable Continue statin therapy (6) Chronic anemia: See plan for #1 Plan Pt seen and reviewed with collaborating physician, Dr. Potter. Plan of care discussed and as outlined above. Thank you for this consultation. We will continue to follow this patient with you. A member of the [facility] Hospitalist team is available 14/11 via [employer]. Please don't hesitate to call with questions. Tal Ibrahim PA-C Supervising Physician Co-Signing Physician Notes Attending addendum: The patient was seen and examined in medical floor He is a status post left knee replacement and complaining of pain in the left knee Also feels that abdomen is bloated but has had a bowel movement this morning Denies any nausea and or vomiting and denies any chest pain, palpitation or shortness of breath He has been taking his torsemide and spironolactone for a while and Ozempic is not to lose weight but to control diabetes He has been taking his metoprolol and verapamil as advised On examination Sitting on a chair with some distress due to left knee pain Remains hemodynamically stable Chest-clear to auscultate bilaterally Heart-S1-S2, regular Abdomen-mildly distended, soft, nontender and bowel sound present Extremities-no edema on the right trace on the left [employer]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, awake and oriented x 3 His labs, EKG and imaging studies and medications reviewed Status post left knee replacement doing reasonably well Medically stable otherwise but will have to get just the medication Will start torsemide 60 mg as needed for leg swelling and fluid overload Continue with Toprol XL and also verapamil and spironolactone 12.5 mg daily Will hold Ozempic while in the hospital and can be restarted as an outpatient Diabetic medications and insulin will be adjusted as per pharmacist Agree with assessment plan as outlined above by LANEY Cardoso Dr History of Present Illness 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 Arian Dee Attending Physician: Arian Dee, DO History of Present Illness This is a 72 y/o male with insulin-requiring DM, HENRIK on CPAP, COPD, hx NSVT, HTN, CKD3b, JOHNIE, dyslipidemia, anxiety, PMR, and other history as outlined below who underwent left TKR by Dr. Dee on 06/09/23. Of note, pt had a c ardiopulmonary arrest in 2016 when he presented for elective THR, which was aborted. Pt apparently became hypoxic and apneic during initiation of sedation, followed by bradyarrhythmia and wide complex tachycardia. He received CPR, epi and defibrillation and was intubated, stabilized and taken to SICU. Echo at that time showed hyperdynamic LV systolic function and moderate pulm HTN. Pharmacologic stress test in 2017 was negative for ischemia. Pt also has a history of aortic stenois. As part of pre-operative evaluation, pt had an ECHO in Dec 2022 that showed normal LV systolic function, moderate aortic stenosis. Nuclear stress test in Dec showed normal LV systolic function with no evidence of inducible ischemia. Pt underwent left TKR three days ago with significant yves-op complication. He has had some operative pain but per orthopedics, this is to be expected. There are some questions regarding his medication regimen post-operatively so we have been consulted to assist with med management. Upon further questioning, pt reports that he has not been taking his diuretics (torsemide, spironolactone) regularly due to the increased urination after taking. He may use them occasionally as needed for swelling. When he does take the torsemide, he states that he only takes half a pill so 50 mg, not 150 mg. Currently, he denies chest pain or palpitations. He did get winded with PT and is unsure if this is worse than usual because he was not active pre-op due to joint pain. Pt also has a history of iron deficiency anemia for which he follows with hematology. He received IV Venofer and Procrit injection last week. His pre-op Hgb was 9.7 on 06/02/23. Pt has noted some lightheadedness with PT as well. He had a small BM yesterday but still feels bloating with some abdominal discomfort. He reports that he typically uses Miralax 1 capful daily at home to help regulate his BMS but he has not been receiving this here. Additionally, he is typically on CPAP at night but this does not appear to have been ordered. Allergies Allergy/AdvReac Type Severity Reaction Status Date / Time No Known Allergies Allergy Verified 06/09/23 08:39 Home Medications Medication Instructions Recorded Confirmed Type folic acid 1 mg tablet 1 mg PO QAM 12/10/18 06/09/23 History tamsulosin 0.4 mg capsule 0.8 mg PO QAM #30 caps 12/10/18 06/09/23 History acetaminophen 500 mg tablet 1,000 mg PO Q6H PRN Pain 01/30/19 06/09/23 History cholecalciferol (vitamin D3) 50 2,000 unit PO QAM 01/30/19 06/09/23 History mcg (2,000 unit) tablet fluocinonide 0.05 % topical 1 applic topical BID PRN Rash 01/30/19 06/09/23 History ointment lorazepam 0.5 mg tablet 0.5 mg PO DAILY PRN Anxiety 01/30/19 06/09/23 History pantoprazole 40 mg tablet,delayed 40 mg PO QAM 01/30/19 06/09/23 History release polyethylene glycol 3350 17 17 g PO DAILY PRN Constipation 01/30/19 06/09/23 History gram/dose oral powder (Miralax) pregabalin 100 mg capsule 100 mg PO TID 01/30/19 06/09/23 History spironolactone 25 mg tablet 12.5 mg PO QAM 01/30/19 06/09/23 History verapamil 120 mg tablet 120 mg PO Q OTHER DAY 01/30/19 06/09/23 History torsemide 100 mg tablet 150 mg PO QAM 12/25/19 06/09/23 History atorvastatin 40 mg tablet 40 mg PO QAM 06/06/22 06/09/23 History semaglutide 0.25 mg or 0.5 mg (2 0.25 mg subcut Q7D 06/06/22 06/09/23 History mg/3 mL) subcutaneous pen injector (Ozempic) CPAP Machine #1 ea 09/21/22 11/15/22 Rx cyanocobalamin (vitamin B-12) 5,000 mcg sublingual QAM 05/24/23 06/09/23 History 5,000 mcg sublingual tablet (Vitamin B-12) metoprolol succinate 25 mg 25 mg PO QAM 05/24/23 06/09/23 History tablet,extended release 24 hr (Toprol XL) modafinil 200 mg tablet (Provigil) 200 mg PO BID PRN sleepiness 05/24/23 06/09/23 History sertraline 150 mg capsule 150 mg PO QAM 05/24/23 06/09/23 History cefadroxil 500 mg capsule 500 mg PO BID 10 days #20 caps 06/10/23 Rx hydrocodone 10 mg-acetaminophen 1 tab PO Q6H PRN Pain #30 tabs 06/10/23 Rx 325 mg tablet Patient History Medical History (Updated 06/12/23 @ 12:37 by Yuliet Ibrahim PA-C) History of anesthesia reaction during left DANY 2016 @ [facility] > Per [facility] discharge summary (03/08/17): Intraoperative bradycardia/unresponsive/hypotensive > CPR begun/epi > wide complex tachycardia s/p synchronized cardioversion shocks- transferred to ICU intubated. Stabilized next day and went back to OR to complete DANY. Tolerated procedure okay and sent back to ICU (extubated next day). Hx heavy ETOH use noted. Chronic anemia Iron deficiency Following closely with [facility] heme/onc, "Cause of anemia is likely multifactorial including ACD/AI, renal insufficiency, andiron deficiency" PMR (polymyalgia rheumatica) Aortic stenosis Echo 12/2022: Moderate aortic stenosis Cardiac arrhythmia Per [facility] discharge summary (03/08/17): Intraoperative bradycardia/unresponsive/hypotensive during Left DANY > CPR begun/epi > wide complex tachycardia s/p synchronized cardioversion shocks- transferred to ICU intubated. Stabilized next day and went back to OR to complete DANY. Tolerated procedure okay and sent back to ICU (extubated next day). Hx heavy ETOH use noted. Pt has had anesthesia since (colonoscopy 2018, B/L cataracts 06/2022) without issue Follows with Dr. Remy Arthritis Personal history of diabetic foot ulcer Diabetic peripheral neuropathy associated with type 2 diabetes mellitus Morbid obesity HENRIK (obstructive sleep apnea) CPAP (current occasional use, spoke with patient at PAT visit 05/26/23- patient voiced that he will plan to be compliant prior to DOS) Pseudogout hx Spinal stenosis Chronic kidney disease (CKD), stage III (moderate) Diverticular disease Diabetes mellitus, type 2 Hearing deficit hearing aids b/l Anxiety Hypertension Hyperlipidemia Surgical History (Updated 06/09/23 @ 15:16 by Arian Dee DO) Hx of left cataract extraction History of right cataract surgery History of carpal tunnel surgery of right wrist History of lumbar spinal fusion History of total left hip replacement Left DANY anterior (03/01/17): SAB at L3-4 at [facility] > Per [facility] discharge summary (03/08/17): Intraoperative bradycardia/unresponsive/hypotensive > CPR begun/epi > wide complex tachycardia s/p synchronized cardioversion shocks- transferred to ICU intubated. Stabilized next day and went back to OR to complete DANY. Tolerated procedure okay and sent back to ICU (extubated next day). Hx heavy ETOH use noted. History of arthroscopy of left knee History of left knee surgery History of colonoscopy History of esophagogastroduodenoscopy (EGD) History of tooth extraction partial upper and lower denture History of wisdom tooth extraction Family History Mother Family history of diabetes mellitus Brother Family history of diabetes mellitus Sister Family history of diabetes mellitus Other No family history of adverse response to anesthesia Social History Smoking Status: Former smoker Tobacco Type: Cigarettes Cigarettes Per Day: Quit 2016; Second Hand Exposure: No; Do You Dip or Chew Tobacco: No; Tobacco Cessation Education Requested by Patient: No Hx Alcohol Use: Yes Alcohol type: beer Hx Substance Use: No Preferred Language: Kyrgyz Communication Ability: Effective Book Sewer Required: No Beliefs That Will Affect Care: None Current Living Situation: Other Current Living Situation Comment: lives with ex- and her new -in their basement Other Information That Helps Us Care for You: No Feels Safe at Home: Yes Safety Concerns: Feels Safe At This Time Assistive Devices: Lift Chair, Walker and Wheelchair Review of Systems Review of Systems: All systems reviewed & are unremarkable except as noted in HPI & below Constitutional: no fever and no chills Eyes: no diplopia Ear, Nose, Mouth, Throat: no nasal congestion and no sore throat Respiratory: as per Subjective / HPI; no cough and no wheezing Cardiovascular: + lightheadedness and + edema (intermitt ent post-op); no chest pain, no palpitations and no syncope Gastrointestinal: + bloating and + constipation; no nausea and no vomiting Genitourinary: no dysuria or no hematuria Musculoskeletal: + joint pain chronic pain related to PMR and OA Integumentary: no yellowing of the skin Neurologic: no syncope and no confusion Physical Exam Physical Exam: General: awake, alert, NAD, OOB in the chair HEENT: no scleral icterus, moist oral mucosa Neck: trachea midline Heart: RRR Lungs: CTA Bilaterally Abdomen: softly distended, +BS Extremities: compression stockings in place, distal pulses intact and equal Skin: no jaundice Neurologic: oriented x 3, pleasant affect, moving all extremities, no focal deficits Results & Data Results & Data Vital Signs (Past 12 Hours) Vital Signs Temp Pulse Resp BP Pulse Ox O2 Del Method 06/12/23 08:31 36.9 C 88 14 135/72 94 Room Air 06/12/23 08:00 36.9 C 06/12/23 08:00 Room Air Laboratory Results Laboratory Results - last 24 hr 06/11/23 06/11/23 06/11/23 11:43 16:18 20:51 POC Glucose 108 H 134 H 134 H 06/12/23 07:23 POC Glucose 128 H Medications Administered Home Medications Medication Instructions Recorded Confirmed Last Taken folic acid 1 mg tablet 1 mg PO QAM 12/10/18 06/09/23 06/08/23 08:00 tamsulosin 0.4 mg capsule 0.8 mg PO QAM #30 caps 12/10/18 06/09/23 06/09/23 05:45 acetaminophen 500 mg tablet 1,000 mg PO Q6H PRN Pain 01/30/19 06/09/23 06/08/23 22:30 cholecalciferol (vitamin D3) 50 2,000 unit PO QAM 01/30/19 06/09/23 06/08/23 08:00 mcg (2,000 unit) tablet fluocinonide 0.05 % topical 1 applic topical BID PRN Rash 01/30/19 06/09/23 06/08/22 08:00 ointment lorazepam 0.5 mg tablet 0.5 mg PO DAILY PRN Anxiety 01/30/19 06/09/23 03/08/23 pantoprazole 40 mg tablet,delayed 40 mg PO QAM 01/30/19 06/09/23 06/09/23 05:45 release polyethylene glycol 3350 17 17 g PO DAILY PRN Constipation 01/30/19 06/09/23 06/08/23 08:00 gram/dose oral powder (Miralax) pregabalin 100 mg capsule 100 mg PO TID 01/30/19 06/09/23 06/09/23 05:45 spironolactone 25 mg tablet 12.5 mg PO QAM 01/30/19 06/09/23 05/26/23 verapamil 120 mg tablet 120 mg PO Q OTHER DAY 01/30/19 06/09/23 06/09/23 05:45 torsemide 100 mg tablet 150 mg PO QAM 12/25/19 06/09/23 05/26/23 atorvastatin 40 mg tablet 40 mg PO QAM 06/06/22 06/09/23 06/08/23 05:45 semaglutide 0.25 mg or 0.5 mg (2 0.25 mg subcut Q7D 06/06/22 06/09/23 05/29/23 mg/3 mL) subcutaneous pen injector (Pencil You In) CPAP Machine #1 ea 09/21/22 11/15/22 Unknown cyanocobalamin (vitamin B-12) 5,000 mcg sublingual QAM 05/24/23 06/09/23 06/08/23 08:00 5,000 mcg sublingual tablet (Vitamin B-12) metoprolol succinate 25 mg 25 mg PO QAM 05/24/23 06/09/23 06/09/23 05:45 tablet,extended release 24 hr (Toprol XL) modafinil 200 mg tablet (Provigil) 200 mg PO BID PRN sleepiness 05/24/23 06/09/23 06/02/23 sertraline 150 mg capsule 150 mg PO QAM 05/24/23 06/09/23 06/08/23 05:45 cefadroxil 500 mg capsule 500 mg PO BID 10 days #20 caps 06/10/23 Unknown hydrocodone 10 mg-acetaminophen 1 tab PO Q6H PRN Pain #30 tabs 06/10/23 Unknown 325 mg tablet Active Medications Generic Name Dose Route Start Last Admin [facility] Reason Stop Dose Admin Acetaminophen 1,000 mg 06/09/23 14:38 06/12/23 05:01 Acetaminophen 500 Mg Tab PO 07/09/23 14:37 1,000 mg Q8 KAL Administration Aspirin 81 mg 06/09/23 21:00 06/12/23 08:16 Aspirin 81 Mg Ectab PO 07/09/23 20:59 81 mg BID KAL Administration Atorvastatin Calcium 40 mg 06/10/23 09:00 06/12/23 08:17 Atorvastatin 40 Mg Tab PO 07/10/23 08:59 40 mg QAM KAL Administration Docusate Sodium 100 mg 06/09/23 21:00 06/12/23 08:17 Docusate Sodium 100 Mg Cap PO 07/09/23 20:59 100 mg BID KAL Administration Hydromorphone HCl 0.25 mg 06/09/23 12:56 06/09/23 13:10 Hydromorphone Inj 0.5 Mg/0.5 Ml Syr IV 06/23/23 12:55 0.25 mg Q15M PRN Administration Pain Hydromorphone HCl 0.5 mg 06/09/23 14:38 06/10/23 17:14 Hydromorphone Inj 0.5 Mg/0.5 Ml Syr IV 06/23/23 14:37 0.5 mg Q4H PRN Administration Pain or Pre PT Insulin Aspart 0 units 06/09/23 16:30 06/12/23 08:33 Insulin Aspart Per Unit Charge SC 07/09/23 16:29 Not Given ACHS AKL Magnesium Hydroxide 30 ml 06/09/23 14:38 06/11/23 13:29 Magnesium Hydroxide Susp 30 Ml Udc PO 07/09/23 14:37 30 ml Q6H PRN Administration Constipation Metoprolol Succinate 25 mg 06/10/23 09:00 06/12/23 08:35 Metoprolol Succ 25mg Ext Rel Tab PO 07/10/23 08:59 25 mg QAM KAL Administration Miscellaneous 15 - 30 gm 06/09/23 16:00 06/11/23 07:38 Carbohydrates For Hypoglycemia PO 07/09/23 15:59 15 gm UD PRN Administration Hypoglycemia Treatment Multivitamins 1 tab 06/10/23 09:00 06/12/23 08:19 Multivitamin Tab PO 07/10/23 08:59 1 tab QAM KAL Administration Oxycodone HCl 5 - 10 mg 06/09/23 14:38 06/12/23 04:22 Oxycodone Hcl Ir 5 Mg Tab (Immediate Release) PO 06/23/23 14:37 10 mg Q4H PRN Administration Pain or Pre PT Polyethylene Glycol 17 gm 06/12/23 10:45 06/12/23 11:11 Polyethylene (Miralax) 17 Gm Pack PO 07/12/23 10:44 17 gm DAILY KAL Administration Pregabalin 100 mg 06/09/23 14:38 06/12/23 08:43 Pregabalin 100 Mg Cap PO 07/09/23 14:37 100 mg TID KAL Administration Sennosides 17.2 mg 06/09/23 21:00 06/11/23 19:31 Senna 8.6 Mg Tab PO 07/09/23 20:59 17.2 mg HS KAL Administration Sertraline HCl 150 mg 06/10/23 09:00 06/12/23 08:20 Sertraline Hcl 100 Mg Tablet PO 07/10/23 08:59 150 mg QAM KAL Administration Spironolactone 12.5 mg 06/10/23 09:00 06/12/23 08:23 Spironolactone 12.5 Mg Tab PO 07/10/23 08:59 12.5 mg QAM KAL Administration Tamsulosin HCl 0.8 mg 06/10/23 09:00 06/12/23 08:25 Tamsulosin Hcl 0.4 Mg Cap PO 07/10/23 08:59 0.8 mg QAM KAL Administration Verapamil HCl 120 mg 06/09/23 15:00 06/11/23 16:14 Verapamil Hcl 40 Mg Tab PO 07/09/23 14:59 Not Given Q2D KAL (2) DM type 2 (diabetes mellitus, type 2) Diabetes mellitus fci insulin use: with fci use Diabetes mellitus complication status: with neurologic complications Diabetes mellitus complication detail: with polyneuropathy Qualified Code(s): E11.42 - Type 2 diabetes mellitus with diabetic polyneuropathy; Z79.4 - regional intermodal truck driver (current) use of insulin (4) HTN (hypertension) Hypertension type: primary hypertension Qualified Code(s): I10 - Essential (primary) hypertension
[2023-06-12] MEDS: POLYETHYLENE (MIRALAX) 17 GM PACK PO SCH (11:11)
[2023-06-12 11:42] LABS: Hematocrit (blood only) 40.7 % (42.0-52.0); Hemoglobin 11.7 g/dl (14.0-18.0); Mean Corpuscular Hemoglobin 22.2 pg (25.0-34.0); Mean Corpuscular Hgb Conc 28.7 g/dL (32.0-36.0); Mean Corpuscular Volume 77.1 fL (80.0-100.0); Mean Platelet Volume 8.3 fL (9.4-12.4); Platelet Count 403 K/uL (130-400); RDW Coefficient of Variation 20.6 % (11.5-14.5); RDW Standard Deviation 54.4 fL (36.4-46.3); Red Blood Count 5.28 M/uL (4.70-6.10); White Blood Count 7.37 K/ul (4.8-10.8)
[2023-06-12 11:48] LABS: BUN Creatinine Ratio 19.2 (10-20); Calcium 9.1 mg/dl (8.6-10.3); Creatinine Clr Calc Pharmacy 54.6 ml/min; Est GFR (African American) 64.1 ml/min; Est GFR (Non-African American) 55.3 ml/min; Magnesium 1.8 mg/dl (1.7-2.4); Potassium 4.2 mmol/L (3.5-5.1)
[2023-06-12 11:49] LABS: Basophils # (auto) 0.04 K/uL (0.00-0.20); Basophils % (auto) 0.5 %; Eosinophils # (auto) 0.14 K/uL (0.00-0.50); Eosinophils % (auto) 1.9 %; Hypochromasia Present; Immature Granulocytes # (auto) 0.05 K/uL (0.01-0.20); Immature Granulocytes % (auto) 0.7 %; Lymphocytes # (auto) 1.11 K/uL (1.20-3.40); Lymphocytes % (auto) 15.1 %; Monocytes # (auto) 0.68 K/uL (0.11-0.59); Monocytes % (auto) 9.2 %; Neutrophils # (auto) 5.35 K/uL (1.40-6.50); Neutrophils % (auto) 72.6 %; Ovalocytes 1+
--- NOTE | 2023-06-12 13:25 | Pharmacy Report ---
Pharmacy Glycemic Short Note 2 - Date of Service June 12, 2023 - Glycemic Short BSG Results (Last 24 hours): 06/11/23 06/11/23 06/12/23 16:18 20:51 07:23 Glucose POC Glucose 134 H 134 H 128 H 06/12/23 06/12/23 11:16 11:34 Glucose 171 H POC Glucose 166 H OUTPATIENT ANTIDIABETIC REGIMEN: * Lantus 30-45 units SQ daily * Ozempic weekly * A1c = 6.9% ASSESSMENT: 06/12 * Patient received no insulin yesterday, fasting BSG was 128 mg/dL this morning, continue to hold basal * Lunch BSG mildly elevated, discussed with nursing patient has been eating but not requiring insulin, patient did have some candy bar this morning which is why BSG may be somewhat elevated * Will trial removal of carb ratio- will add back if BSGs trend upward. Monitor 06/11 * Dennis is POD # 2 s/p L TKA * He was given a one time dose of Lantus 15 units on 06/09 PM for hyperglycemia. Patient also given a dose of dexamethasone IV yves-op. * Dennis has required little to no insulin for > 24 hours. Does not appear to be consuming carbohydrates. Will d/c basal insulin order and keep conservative novolog order. PLAN FOR INPATIENT GLYCEMIC CONTROL: * Hold outpatient oral diabetes medications * Basal insulin * none * Bolus insulin * NovoLog per scale ACHS or Q6hrs while NPO * Goal Range: Low 110 mg/dL - High 140 mg/dL * Correction Factor: 35 mg/dL/unit * Nutritional / Prandial insulin per carb ratio of 1 unit per -- grams CHO consumed
--- NOTE | 2023-06-13 06:44 | Orthopedic Progress Note ---
Date of Service June 13, 2023 Assessment & Plan (1) Status post left knee replacement: With regards to his left knee he is slowly improving. I still think he would do better at a rehab or nursing facility. Unfortunately the insurance company denied rehab placement. We will look to send him to a nursing facility sometime today. He can follow-up with orthopedics in 2 weeks. He is on aspirin for DVT prophylaxis. George Collins was seen and examined at bedside this morning. Overall he is doing okay. His knee still hurts but is getting better. He is participating better with physical therapy. He has no new complaints.. Review of Systems All systems reviewed & are unremarkable except as noted in HPI & below. Physical Exam On physical examination of the knee, his legs out full extension. He is active dorsiflexion plantarflexion of his left ankle.. Results & Data Results & Data Laboratory Results . Diagnostic Findings . PG Care Time/CCT Total # of Minutes Spent Total Time Spent with Patient: Total time spent is greater than 50% in coordination of care (as documented) at patient's floor/unit and/or counseling patient: Coding Level of Care Code 74121 Post Operative Follow-Up Diagnoses Status post left knee replacement Z96.652
[2023-06-13 13:12] LABS: Hematocrit (blood only) 35.1 % (42.0-52.0); Hemoglobin 10.4 g/dl (14.0-18.0); Mean Corpuscular Hemoglobin 22.5 pg (25.0-34.0); Mean Corpuscular Hgb Conc 29.6 g/dL (32.0-36.0); Mean Platelet Volume 8.5 fL (9.4-12.4); Platelet Count 332 K/uL (130-400); RDW Coefficient of Variation 20.1 % (11.5-14.5); Red Blood Count 4.62 M/uL (4.70-6.10); White Blood Count 6.38 K/ul (4.8-10.8)
--- NOTE | 2023-06-13 15:03 | Hospitalist Progress Note ---
Date of Service June 13, 2023 Assessment & Plan (1) Status post left knee replacement: Plan: 72 y/o male with insulin-requiring DM, HENRIK on CPAP, COPD, hx NSVT, HTN, CKD3b, JOHNIE, dyslipidemia, anxiety, PMR, and other history as outlined below who underwent left TKR by Dr. Dee on 06/09/23. Post-operatively there has been some confusion on his medication regimen and some of his cardiac meds have been held due to parameters. We have been consulted to assist with medication management. S/P Left TKA POD #4 DVT prophylaxis, pain control and activity per primary team Patient has not been taking diuretics consistently as outpatient but rather using only PRN Continue Torsemide prn edema Continue spironolactone, metoprolol succinate, and verapamil as ordered by PCP (2) DM type 2 (diabetes mellitus, type 2): Plan: Glycemic pharmacist on board for glycemic mgt ISS Continue diabetic diet (3) HENRIK (obstructive sleep apnea): Plan: Pt is typically on CPAP at HS Continue CPAP HS (4) HTN (hypertension): Plan: Chronic, stable Continue spironolactone, metoprolol succinate, and verapamil (5) Dyslipidemia: Plan: Chronic, stable Continue statin therapy (6) Chronic anemia: Plan: Hb is stable Monitor Plan CM working on SNF placement I spent a total of 40 minutes coordinating, documenting and providing care for this patient excluding time spent in performance of separately billed services Admission and Anticipated Discharge Date Admission Date: June 12, 2023 Subjective Patient seen and examined Reports some surgical site pain but improved Denied any other complaints Physical Exam Constitutional: + well hydrated; no acute distress Eyes: PERRL, conjunctivae normal, anicteric sclerae ENMT: external ear and nose normal, oropharynx normal Hearing aid in situ Respiratory: normal respiratory effort, lungs clear to auscultation Cardiovascular: Rate/Rhythm: regular rate and regular rhythm S1 S2 Gastrointestinal (Abdomen): normal bowel sounds, soft, nontender, no hepatosplenomegaly Musculoskeletal: Clean dressing over left knee surgical site No pedal edema Neurologic: PERRL, EOMI, accommodation nl, no face palsy, no dysarthria Psychiatric: A+Ox3, euthymic affect Results & Data Results & Data Vital Signs (Past 12 Hours) Vital Signs Temp Pulse Resp BP Pulse Ox O2 Del Method 06/13/23 07:38 36.8 C 84 17 145/77 H 96 Room Air (2) DM type 2 (diabetes mellitus, type 2) Diabetes mellitus nursing home insulin use: with emt intermediate use Diabetes mellitus complication status: with neurologic complications Diabetes mellitus complication detail: with polyneuropathy Qualified Code(s): E11.42 - Type 2 diabetes mellitus with diabetic polyneuropathy; Z79.4 - local company intermodal truck driver (current) use of insulin (4) HTN (hypertension) Hypertension type: primary hypertension Qualified Code(s): I10 - Essential (primary) hypertension
[2023-06-13 19:37] LABS: BUN Creatinine Ratio 19.9 (10-20); Calcium 8.3 mg/dl (8.6-10.3); Creatinine Clr Calc Pharmacy 48.6 ml/min; Est GFR (African American) 55.7 ml/min; Potassium 4.2 mmol/L (3.5-5.1)
[2023-06-14 07:29] LABS: BUN Creatinine Ratio 21.1 (10-20); Calcium 8.6 mg/dl (8.6-10.3); Creatinine Clr Calc Pharmacy 57.7 ml/min; Est GFR (African American) 68.5 ml/min; Est GFR (Non-African American) 59.1 ml/min; Potassium 4.7 mmol/L (3.5-5.1)
--- NOTE | 2023-06-14 12:17 | Orthopedic Progress Note ---
Date of Service June 14, 2023 Assessment & Plan (1) Status post left knee replacement: He is hoping to be discharged today. It sounds like they have a bed for him at rehab. His ride is here at this time. Follow up with Dr. Dee's clinic in about 2 weeks, as scheduled. Pain is controlled. Continue PT/OT DVT prophylaxis: teds, scd's and aspirin Will discuss with Dr. Dee. Subjective . 72 year old patient POD #5 from left tka with Dr. Dee. Doing pretty well today. He was having quite a bit of knee pain but seems improved some today. He is just waiting discharge to rehab facility and hoping to go today. Review of Systems All systems reviewed & are unremarkable except as noted in HPI & below. Physical Exam . alert and oriented. NAD Left knee: Small amount of dry blood/drainage on the dressing. No active drainage at this time. Will change dressing today prior to d/c. Able to slightly raise his leg off the bed with pain and difficulty. Mild swelling to the knee. Able to dorsiflex/plantarflex. NVI Results & Data Results & Data Laboratory Results . Diagnostic Findings . PG Care Time/CCT Total # of Minutes Spent Total Time Spent with Patient: Total time spent is greater than 50% in coordination of care (as documented) at patient's floor/unit and/or counseling patient: Coding Level of Care Code 60327 Post Operative Follow-Up Diagnoses Status post left knee replacement Z96.652
--- NOTE | 2023-06-14 13:28 | Hospitalist Progress Note ---
Date of Service June 14, 2023 Assessment & Plan (1) Status post left knee replacement: Plan: 72 y/o male with insulin-requiring DM, HENRIK on CPAP, COPD, hx NSVT, HTN, CKD3b, JOHNIE, dyslipidemia, anxiety, PMR, and other history as outlined below who underwent left TKR by Dr. Dee on 06/09/23. Post-operatively there has been some confusion on his medication regimen and some of his cardiac meds have been held due to parameters. We have been consulted to assist with medication management. S/P Left TKA POD #5 DVT prophylaxis, pain control and activity per primary team Patient has not been taking diuretics consistently as outpatient but rather using only PRN Continue Torsemide prn for edema Continue spironolactone, metoprolol succinate, and verapamil as ordered by PCP (2) DM type 2 (diabetes mellitus, type 2): Plan: Glycemic pharmacist on board for glycemic mgt ISS Continue diabetic diet (3) HENRIK (obstructive sleep apnea): Plan: Pt is typically on CPAP at HS Continue CPAP HS (4) HTN (hypertension): Plan: Chronic, stable Continue spironolactone, metoprolol succinate, and verapamil on discharge (5) Dyslipidemia: Plan: Chronic, stable Continue statin therapy (6) Chronic anemia: Plan: Hgb is stable post-op Monitor Admission and Anticipated Discharge Date Admission Date: June 12, 2023 Subjective Pt was seen sitting in bed. Denied acute concerns. Anxious to be discharged. Review of Systems Review of Systems: All systems reviewed & are unremarkable except as noted in Subjective Physical Exam Physical Exam: General: Alert, oriented. No acute distress Psych: Appropriate mood and affect Neuro: No gross deficits while sitting in bed HEENT: NC/AT Chest: Nontender to palpation. CV: RRR, + murmur appreciated Resp: Breath sounds clear bilaterally, no increased effort of breathing. Abdomen: Soft, nontender, nondistended. Extremities: No edema in lower extremities bilaterally. Results & Data Results & Data Vital Signs (Past 12 Hours) Vital Signs Temp Pulse Resp BP Pulse Ox O2 Del Method 06/14/23 07:16 37.0 C 74 16 121/67 96 Room Air (2) DM type 2 (diabetes mellitus, type 2) Diabetes mellitus complication detail: with polyneuropathy Diabetes mellitus complication status: with neurologic complications Diabetes mellitus halfway insulin use: with buttermaker helper use Qualified Code(s): E11.42 - Type 2 diabetes mellitus with diabetic polyneuropathy; Z79.4 - terminal make up operator (current) use of insulin (4) HTN (hypertension) Hypertension type: primary hypertension Qualified Code(s): I10 - Essential (primary) hypertension
== END 2023-06-14 13:17 | DRG 470 ==
LOC: 3E 08:13 → ASU 08:13

== ENCOUNTER 2023-08-28 10:19 | Inpatient (IN) ==
--- NOTE | 2023-07-27 13:15 | PAT Medication Instructions ---
Medication Instructions Date of Service July 27, 2023 Home Medications Medication Instructions Recorded CPAP Machine #1 ea 09/21/22 aspirin 81 mg tablet,delayed 81 mg PO BID #84 tabs 06/14/23 release (Adult Aspirin Regimen) folic acid 1 mg tablet 1 mg PO QAM tamsulosin 0.4 mg capsule 0.8 mg PO QAM acetaminophen 500 mg tablet 1,000 mg PO Q6H PRN Pain cholecalciferol (vitamin D3) 50 mcg (2,000 unit) tablet 2,000 unit PO QAM fluocinonide 0.05 % topical ointment 1 applic topical BID PRN Rash lorazepam 0.5 mg tablet 0.5 mg PO DAILY PRN Anxiety pantoprazole 40 mg tablet,delayed release 40 mg PO QAM polyethylene glycol 3350 17 gram/dose oral powder (Miralax) 17 g PO DAILY PRN Constipation pregabalin 100 mg capsule 100 mg PO TID spironolactone 25 mg tablet 12.5 mg PO QAM verapamil 120 mg tablet 120 mg PO Q OTHER DAY torsemide 100 mg tablet 150 mg PO QAM atorvastatin 40 mg tablet 40 mg PO QAM semaglutide 0.25 mg or 0.5 mg (2 mg/3 mL) subcutaneous pen injector (Ozempic) 0.25 mg subcut Q7D cyanocobalamin (vitamin B-12) 5,000 mcg sublingual tablet (Vitamin B-12) 5,000 mcg sublingual QAM metoprolol succinate 25 mg tablet,extended release 24 hr (Toprol XL) 25 mg PO QAM modafinil 200 mg tablet (Provigil) 200 mg PO BID PRN sleepiness sertraline 150 mg capsule 150 mg PO QAM aspirin 81 mg tablet,delayed release (Adult Aspirin Regimen) 81 mg PO BID Continue as directed lorazepam 0.5 mg tablet 0.5 mg PO DAILY PRN Anxiety (if needed) verapamil 120 mg tablet 120 mg PO Q OTHER DAY ASK your prescriber and surgeon aspirin 81 mg tablet,delayed release (Adult Aspirin Regimen) 81 mg PO BID STOP taking 7 days before surgery semaglutide 0.25 mg or 0.5 mg (2 mg/3 mL) subcutaneous pen injector (Ozempic) 0.25 mg subcut Q7D STOP taking 24 hours before surgery fluocinonide 0.05 % topical ointment 1 applic topical BID PRN Rash DO NOT take the morning of surgery folic acid 1 mg tablet 1 mg PO QAM cholecalciferol (vitamin D3) 50 mcg (2,000 unit) tablet 2,000 unit PO QAM polyethylene glycol 3350 17 gram/dose oral powder (Miralax) 17 g PO DAILY PRN Constipation spironolactone 25 mg tablet 12.5 mg PO QAM torsemide 100 mg tablet 150 mg PO QAM cyanocobalamin (vitamin B-12) 5,000 mcg sublingual tablet (Vitamin B-12) 5,000 mcg sublingual QAM modafinil 200 mg tablet (Provigil) 200 mg PO BID PRN sleepiness Take morning of surgery With a small sip of water, OTHERWISE NOTHING TO EAT OR DRINK AFTER MIDNIGHT: tamsulosin 0.4 mg capsule 0.8 mg PO QAM acetaminophen 500 mg tablet 1,000 mg PO Q6H PRN Pain (if needed) pantoprazole 40 mg tablet,delayed release 40 mg PO QAM pregabalin 100 mg capsule 100 mg PO TID atorvastatin 40 mg tablet 40 mg PO QAM metoprolol succinate 25 mg tablet,extended release 24 hr (Toprol XL) 25 mg PO QAM sertraline 150 mg capsule 150 mg PO QAM Take evening before surgery acetaminophen 500 mg tablet 1,000 mg PO Q6H PRN Pain (if needed) polyethylene glycol 3350 17 gram/dose oral powder (Miralax) 17 g PO DAILY PRN Constipation (if needed) pregabalin 100 mg capsule 100 mg PO TID modafinil 200 mg tablet (Provigil) 200 mg PO BID PRN sleepiness (if needed) Other Notes If you have any questions please call us at [phone] or [phone] or [phone] or [phone]
--- NOTE | 2023-08-02 13:08 | Anesthesiology Consultation ---
Date of Service August 02, 2023 Assessment & Plan (1) Encounter for pre-operative examination: Plan - check BSG am DOS. No bolus ordered. - s/p left TKA 06/09/2324 Grade 1 view, glidescope 3, ETT 7.5. - moderate aortic stenosis on 01/10/2023 echocardiogram. General anesthesia with glidescope utilized for 05/30/13 left TKA. - Hx anesthesia/surgery complication: * Left DANY anterior (03/01/17): SAB at L3-4 at [facility] > Per [facility] discharge summary (03/08/17): Intraoperative bradycardia/unresponsive/hypotensive > CPR begun/epi > wide complex tachycardia s/p synchronized cardioversion shocks- transferred to ICU intubated. Stabilized next day and went back to OR to complete DANY. Tolerated procedure okay and sent back to ICU (extubated next day). Hx heavy ETOH use noted. * Noted per cardiology 12/2022 [facility]: "...stable from a cardiology standpoint to proceed with knee replacement...has had past issues with sedation which have been discussed, and cautious attention to be paid with regards to airway management and monitoring his cardiac rhythm...anticipate a low risk of perioperative cardiac complication..." * Pt has had anesthesia since (colonoscopy 2018, B/L cataracts 06/2022, left TKA 05/2023) without similar issue. - Given recent left TKA without issue, patient acceptable to proceed per Dr. Butts. - Outpatient joint assessment: Patient is currently scheduled for inpatient pathway. If re-evaluated and patient/surgeon requests outpatient pathway, patient is not recommended candidate for outpatient joint program from anesthesia standpoint. Chart Review Chart Review: Acceptable Risk for Surgery (pending anesthesiologist evaluation am DOS) and Patient seen in Pre Admission Testing Teaching & Discussion Pre-Anesthesia Teaching/Discussion Notes: Instructed NPO after midnight before surgery, except medications with 15 cc of water. Medication instructions provided according to the PAT guidelines. History Surgery Operation Date: 08/28/23 10:00 Proposed Procedures p Right Total Knee Arthroplasty - Arian Dee DO Height/Weight Height: 5 ft 10 in Weight: 92 kg Allergies Allergy/AdvReac Type Severity Reaction Status Date / Time No Known Allergies Allergy Verified 07/17/23 14:50 Medications Home Medications Medication Instructions Recorded Confirmed Last Taken folic acid 1 mg tablet 1 mg PO QAM 12/10/18 07/17/23 06/08/23 08:00 tamsulosin 0.4 mg capsule 0.8 mg PO QAM #30 caps 12/10/18 07/17/23 06/09/23 05:45 acetaminophen 500 mg tablet 1,000 mg PO Q6H PRN Pain 01/30/19 07/17/23 06/08/23 22:30 cholecalciferol (vitamin D3) 50 2,000 unit PO QAM 01/30/19 07/17/23 06/08/23 08:00 mcg (2,000 unit) tablet fluocinonide 0.05 % topical 1 applic topical BID PRN Rash 01/30/19 07/17/23 06/08/22 08:00 ointment lorazepam 0.5 mg tablet 0.5 mg PO DAILY PRN Anxiety 01/30/19 07/17/23 03/08/23 pantoprazole 40 mg tablet,delayed 40 mg PO QAM 01/30/19 07/17/23 06/09/23 05:45 release polyethylene glycol 3350 17 17 g PO DAILY PRN Constipation 01/30/19 07/17/23 06/08/23 08:00 gram/dose oral powder (Miralax) pregabalin 100 mg capsule 100 mg PO TID 01/30/19 07/17/23 06/09/23 05:45 spironolactone 25 mg tablet 12.5 mg PO QAM 01/30/19 07/17/23 05/26/23 verapamil 120 mg tablet 120 mg PO Q OTHER DAY 01/30/19 07/17/23 06/09/23 05:45 torsemide 100 mg tablet 150 mg PO QAM 12/25/19 07/17/23 05/26/23 atorvastatin 40 mg tablet 40 mg PO QAM 06/06/22 07/17/23 06/08/23 05:45 semaglutide 0.25 mg or 0.5 mg (2 0.25 mg subcut Q7D 06/06/22 07/17/23 05/29/23 mg/3 mL) subcutaneous pen injector (Ozempic) CPAP Machine #1 ea 09/21/22 11/15/22 Unknown cyanocobalamin (vitamin B-12) 5,000 mcg sublingual QAM 05/24/23 07/17/23 06/08/23 08:00 5,000 mcg sublingual tablet (Vitamin B-12) metoprolol succinate 25 mg 25 mg PO QAM 05/24/23 07/17/23 06/09/23 05:45 tablet,extended release 24 hr (Toprol XL) modafinil 200 mg tablet (Provigil) 200 mg PO BID PRN sleepiness 05/24/23 07/17/23 06/02/23 sertraline 150 mg capsule 150 mg PO QAM 05/24/23 07/17/23 06/08/23 05:45 aspirin 81 mg tablet,delayed 81 mg PO BID #84 tabs 06/14/23 07/17/23 Unknown release (Adult Aspirin Regimen) Past Medical History Medical History (Updated 08/02/23 @ 15:31 by Lynne Monsalve PA-C) Anxiety Aortic stenosis Echo 12/2022: Moderate aortic stenosis Arthritis Cardiac arrhythmia Per [facility] discharge summary (03/08/17): Intraoperative bradycardia/unresponsive/hypotensive during Left DANY > CPR begun/epi > wide complex tachycardia s/p synchronized cardioversion shocks- transferred to ICU intubated. Stabilized next day and went back to OR to complete DANY. Tolerated procedure okay and sent back to ICU (extubated next day). Hx heavy ETOH use noted. Pt has had anesthesia since (colonoscopy 2018, B/L cataracts 06/2022) without issue Follows with Dr. Remy Chronic anemia Iron deficiency Following closely with S heme/onc, "Cause of anemia is likely multifactorial including ACD/AI, renal insufficiency, andiron deficiency" Chronic kidney disease (CKD), stage III (moderate) Diabetes mellitus, type 2 Diabetic peripheral neuropathy associated with type 2 diabetes mellitus feet Diverticular disease Hearing deficit hearing aids b/l Heart failure History of anesthesia reaction during left DANY 2017 @ [facility] > Per [facility] discharge summary (03/08/17): Intraoperative bradycardia/unresponsive/hypotensive > CPR begun/epi > wide complex tachycardia s/p synchronized cardioversion shocks- transferred to ICU intubated. Stabilized next day and went back to OR to complete DANY. Tolerated procedure okay and sent back to ICU (extubated next day). Hx heavy ETOH use noted. History of blood transfusion 2016 Hyperlipidemia Hypertension controlled, stable per pt Morbid obesity HENRIK (obstructive sleep apnea) CPAP (current occasional use, spoke with patient at PAT visit 05/26/23- patient voiced that he will plan to be compliant prior to DOS) Personal history of diabetic foot ulcer PMR (polymyalgia rheumatica) Pseudogout hx Pulmonary hypertension PASP 41 mmHg on 12/2022 echo Spinal stenosis Patient denies h/o stroke, seizures, heart attack, or blood clots/DVTs. Exercise / Class Metabolic Activity III < 4 Walking/Shop/Light housework (denies chest discomfort or shortness of breath with usual activities) Past Family History Family History Mother Family history of diabetes mellitus Brother Family history of diabetes mellitus Sister Family history of diabetes mellitus Other No family history of adverse response to anesthesia Past Surgical History Surgical History History of arthroscopy of left knee History of carpal tunnel surgery of right wrist History of colonoscopy History of esophagogastroduodenoscopy (EGD) History of left knee replacement 06/09/23 [facility] History of left knee surgery History of lumbar spinal fusion History of right cataract surgery History of tooth extraction partial upper and lower denture History of total left hip replacement Left DANY anterior (03/01/17): SAB at L3-4 at [facility] > Per [facility] discharge summary (03/08/17): Intraoperative bradycardia/unresponsive/hypotensive > CPR begun/epi > wide complex tachycardia s/p synchronized cardioversion shocks- transferred to ICU intubated. Stabilized next day and went back to OR to complete DANY. Tolerated procedure okay and sent back to ICU (extubated next day). Hx heavy ETOH use noted. History of wisdom tooth extraction Hx of left cataract extraction Past Anesthesia History No Family Hx of Anesthesia Complications and Other (see above.) History of PONV No Hx of PONV and No Hx of Motion Sickness Social History Smoking Status: Former smoker tobacco type: cigarettes Smoking cigarettes per day: Quit 2017 Do You Dip or Chew Tobacco: No Hx Alcohol Use: Yes Alcohol type: beer alcohol intake frequency: holidays/special occasions only Hx Substance Use: No substance use type: does not use Review of Systems Patient denies chest pain, shortness of breath, dyspnea on exertion, reflux, fever, chills, cough, wheezing, or palpitations. Physical Exam Vital Signs Vitals BP 118/75 P 67 TEMP 98.5 SP02 96% on RA RESP 17 Physical Patient resting comfortably in chair in no acute distress, alert and oriented, responding appropriately throughout visit Full cervical extension range of motion without pain TMD 3.5 finger breadths Mallampati Score 3 Dentition: several caps/crowns and upper and lower partial, denies chipped or loose teeth, implants or bridges Lungs: normal respiratory effort. Good air movement, clear throughout to auscultation, no adventitious breath sounds Cardiac: regular rate and rhythm, no murmurs noted Carotid arteries: negative bruit bilat Lab Results Anesthesia Preop Results Results Anesthesia Widget: WBC 7.65 K/ul (4.8-10.8) 08/02/23 Hgb 10.6 g/dl (14.0-18.0) L 08/02/23 Hct 36.3 % (42.0-52.0) L 08/02/23 Plt 390 K/uL (130-400) 08/02/23 Na 136 mmol/L (136-145) 08/02/23 K 4.0 mmol/L (3.5-5.1) 08/02/23 Cl 99 mmol/L (98-107) 08/02/23 CO2 30 mmol/L (21-32) 08/02/23 BUN 38 mg/dl (6-23) H 08/02/23 Creat 0.93 mg/dl (0.6-1.4) 08/02/23 Glucose Level 149 mg/dl (70-99(Fasting)) H 08/02/23 POC Glucose 161 mg/dl (70-99) H 06/14/23 PT 11.9 Seconds (9.0-12.0) 08/02/23 PTT 36 Seconds (21-31) H 08/02/23 INR 1.1 (0.9-1.1) 08/02/23 HA1c 7.9 % (4.5-5.6) H 08/02/23 Blood Type A Positive 08/02/23 Antibody Screen NEGATIVE 08/02/23 Testing Laboratory Results Surgeon's office made aware of elevated A1c. Electrocardiogram Date: 12/05/22 Sinus rhythm with 1st degree AV block with occasional premature ventricular complexes, rate 89 bpm Left axis deviation Chest X-Ray Date: 12/05/22 No acute chest disease. Echocardiogram Date: 01/10/23 EF 55-59% Normal LV wall motion Mild cLVH Severely enlarged LA Grade II diastolic dysfunction Moderately calcified aortic valve Moderate aortic valve stenosis (SCARLET 1.4 cm2, mean PG 21 mmHg) Mild mitral regurgitation Mild tricuspid regurgitation PASP 41 mmHg Mildly enlarged aortic root and proximal ascending aorta Stress Test Date: 01/10/23 Pharmacologic MPHR 62% Negative for ischemia EF 67% Normal LV wall motion
[~2023-08-28 10:19] MED LIST changes: -BUPIVACAINE 0.25% PF 30 ML VIAL ONE; -BUPIVACAINE 0.5 % 5 MG/1 ML PF 10ML VIAL ONE; +ROPIVACAINE 0.5% 5 MG/ML 30 ML VIAL ONE
[2023-08-28] MEDS: ACETAMINOPHEN 500 MG TAB PO SCH ×2 (10:48→21:43)
[2023-08-28] MEDS: dexAMETHasone 4 MG TAB PO SCH (10:48)
[2023-08-28] MEDS: GABAPENTIN 300 MG CAP PO SCH (10:48)
[2023-08-28] MEDS ORDERED: fentaNYL citrate PF 100 MCG/2 ML VIAL ONE ×2 (10:48→13:12)
[2023-08-28] MEDS: FAMOTIDINE 20 MG TAB PO SCH (10:48)
[2023-08-28] MEDS ORDERED: MIDAZOLAM HCL 1 MG/ML 2ML VIAL ONE ×2 (10:48)
[2023-08-28] MEDS: LR 60ML/HR IV SCH (10:49)
[2023-08-28] MEDS: LR 15ML/HR IV SCH (11:10)
[2023-08-28] MEDS ORDERED: ePHEDrine sulfate 50 MG/ML AMP IV PRN (11:40)
[2023-08-28] MEDS ORDERED: ONDANSETRON INJ 2 MG/ML 2 ML VIAL IV PRN ×2 (11:40→16:36)
[2023-08-28] MEDS ORDERED: fentaNYL citrate PF 100 MCG/2 ML VIAL IV PRN (11:40)
[2023-08-28] MEDS ORDERED: ATROPINE SULFATE 0.1 MG/ML 10ML SYR IV PRN (11:40)
[2023-08-28] MEDS ORDERED: HYDROmorphone INJ 1 MG/ML SYRINGE IV PRN (11:40)
[2023-08-28] MEDS ORDERED: PROMETHAZINE HCL 6.25 MG in SODIUM CHLORIDE 0.9% 50 ML IV PRN (11:40)
--- NOTE | 2023-08-28 11:55 | History & Physical Bridge Note ---
Date of Service August 28, 2023 History & Physical Bridge Note I have examined the patient, reviewed the History & Physical and in the interval since the performance of the History & Physical I have noted the following changes of clinical significance: no changes noted
[2023-08-28] MEDS: TRANEXAMIC ACID 1,000 MG **IV Pre-op IV SCH (12:44)
[2023-08-28] MEDS ORDERED: PROPOFOL IV EMULSION 10 MG/ML 20 ML VIAL IV ONE (13:51)
[2023-08-28] MEDS ORDERED: ONDANSETRON INJ 2 MG/ML 2 ML VIAL ONE ×2 (13:51→14:14)
[2023-08-28] MEDS ORDERED: ROCURONIUM BROMIDE 10 MG/ML 5 ML VIAL IV ONE (13:51)
[2023-08-28] MEDS ORDERED: LIDOCAINE 2% 2 ML VIAL/AMP(20MG/ML) INFIL ONE (13:51)
[2023-08-28] MEDS ORDERED: SUGAMMADEX SODIUM 200 MG/2 ML VIAL IV ONE (14:15)
[2023-08-28] MEDS ORDERED: ePHEDrine sulfate 50 MG/5 ML SYR ONE (14:16)
[2023-08-28] MEDS ORDERED: PHENYLEPHRINE 100MCG/ML 10ML SYR IV ONE (14:16)
[2023-08-28] MEDS: ORTHO JOINT ANESTHETIC ONE (14:19)
[2023-08-28] MEDS: ceFAZolin 2000MG 2,000 MG/15 ML SYR IV SCH ×2 (14:19→21:41)
[2023-08-28] MEDS: TRANEXAMIC ACID 1,000 MG **IV Intra-op IV SCH (14:30)
[2023-08-28] MEDS: ROPIV 0.5% 246mg, Ketorolac 30mg, EPINEPHrine 0.5mg in NSS INFIL SCH (14:44)
--- NOTE | 2023-08-28 15:45 | Anesthesiology Progress Note ---
Date of Service August 28, 2023 Anesthesia Post Procedure Vital Signs Vital Signs: Temp Pulse Pulse Resp BP BP Pulse Ox 08/28/23 15:40 36.7 C 86 19 109/48 L 93 08/28/23 15:30 88 13 110/53 L 92 08/28/23 15:20 88 20 108/50 L 93 08/28/23 15:10 86 16 112/55 L 95 08/28/23 15:02 36.8 C 80 12 107/51 L 95 08/28/23 10:45 36.8 C 75 20 145/77 H 97 O2 Del Method O2 Flow Rate 08/28/23 15:40 Room Air 08/28/23 15:30 Room Air 08/28/23 15:20 Room Air 08/28/23 15:10 Oxymask 4 08/28/23 15:02 Oxymask 6 08/28/23 10:45 Room Air Pain Intensity Bilateral Knee: Pain Intensity: 6 Transfer of Care Handoff Completed per policy Notes Mental Status: alert / awake / arousable and participated in evaluation Patient Amnestic to Procedure: Yes Nausea / Vomiting: adequately controlled Pain: adequately controlled Airway Patency, RR, SpO2: stable & adequate BP & HR: stable & adequate Hydration State: stable & adequate Anesthetic Complications: no major complications apparent and Pt Satisfied with anesthetic care
--- NOTE | 2023-08-28 16:07 | Operative Report ---
PG Post Operative Report Pre & Post Diagnosis Operation Date: 08/28/23 12:00 Pre-Op Diagnosis: Right Knee Degenerative Joint Disease Post-Op Diagnosis: Negative infection of the right knee I identified the patient and participated in the time-out.: Yes Procedure Operation Date: 08/28/23 12:00 Actual Procedures p Incision and Debridement of Infected Right Knee(Right) - Arian Dee DO Surgeon Arian Dee DO Software Engineer Intern Arian Hahn PA-C Estimated Blood Loss 30 Findings Consistent with Post-Op Diagnosis Infection of the right knee Specimens Multiple soft tissue specimens sent to pathology in formalin for frozen section. Soft tissue specimen sent to pathology for culture. Indications Dennis is a pleasant 72-year-old male who has been dealing with chronic worsening bilateral knee pain. His knee pains been quite debilitating. I did a left knee replacement on him about 3 months ago and has done very well with that. He has been receiving injections in his right knee for years. His right knee symptoms have severely exasperated over the last few months and especially last few weeks. He is wheelchair-bound because of his right knee. He elected to proceed with a right total knee arthroplasty. He has not had any surgery to his right knee in the past. Description of Procedure On August 28, 2023 Dennis arrived at [facility] for the above procedure. He was seen in the preoperative holding area and the operative extremity iden tified and signed. Is given a preoperative antibiotic and a regional anesthetic. He was taken back to the operating room and laid on table in supine position. He was put under general anesthesia. The right knee was prepped and draped in sterile fashion. A timeout was done. The patient and the operative extremity was properly identified. He had a very large tight effusion to his right knee. There was no erythema around the skin. Simple midline incision was made. Dissection was taken down to the the extensor mechanism. A medial parapatellar approach was done. When the arthrotomy was made a large amount of infected appearing synovial fluid was exasperated from the joint. Unfortunately, this was immediately cleaned out with suction. There was enough purulent appearing tissue within the knee joint that I was suddenly concerned about the possibility of the knee being infection. The infectious appearing tissue was sent directly to pathology. The initial pathology report showed that there was significant inflammation in this tissue but because they were not actual soft tissue samples a definitive diagnosis cannot be reached. I then sent 5 separate soft tissue samples of the synovium around the knee joint to pathology. The pathologist called back with high levels of PMNs in each section. The highest level was 30 and the lowest level was 7. At this point I was very concerned for an infection. Initial soft tissue from the fat pad was then sent down to pathology for culture. Unfortunately I did not have any synovial fluid to send. The knee was then irrigated with 6 L of normal saline solution with pulse lavage. The chondral surface was severely affected. It did not appear to be standard osteoarthritis but there appeared to be necrosis and wearing away of the chondral surfaces. This may have been a result of a chronic infection. After the final irrigation was done, the extensor mechanism was closed with #1 Vicryl suture. Skin was closed with 2-0 Vicryl, 3 oh V-Loc suture, and yannick. He was then placed in a soft compressive dressing. He was then extubated and transferred to a [facility]. He was taken to the postanesthesia care unit in stable condition. He tolerated the procedure well. Arian Hahn PA-C, was present for the entire procedure. He was critical for patient positioning, prepping, draping, retraction exposure, wound closure and application of sterile dressing. I attest to the content of the Intraoperative Record and any orders documented therein. Any exceptions are noted below.
[2023-08-28] MEDS ORDERED: FLUOCINONIDE 0.05% OINT 15 GM TUBE EXT PRN (16:36)
[2023-08-28] MEDS ORDERED: METOCLOPRAMIDE HCL INJ 5 MG/ML 2 ML VIAL IV PRN (16:36)
[2023-08-28] MEDS ORDERED: modafiniL 100 MG TAB PO PRN (16:36)
[2023-08-28] MEDS ORDERED: PHARMACY GLYCEMIC MGMT CONSULT PRN (16:36)
[2023-08-28] MEDS ORDERED: LORazepam 0.5 MG TAB PO PRN ×2 (16:36→19:00)
[2023-08-28] MEDS ORDERED: bisacodyL 10 MG SUPP PR PRN (16:36)
[2023-08-28] MEDS ORDERED: NALOXONE HCL 0.4 MG/1 ML VIAL/CARP IV PRN (16:36)
[2023-08-28] MEDS ORDERED: oxyCODONE HCL IR 5 MG TAB (IMMEDIATE RELEASE) PO PRN (16:36)
[2023-08-28] MEDS ORDERED: VANCOMYCIN CONSULT ACTIVE PRN (16:36)
[2023-08-28] MEDS: SODIUM CHLORIDE 0.9% 1,000 ML IV SCH (16:43)
[2023-08-28] MEDS ORDERED: DEXTROSE 50% 50 ML SYRINGE IV PRN (17:30)
[2023-08-28] MEDS ORDERED: GLUCAGON FOR INJ 1 MG VIAL IM PRN (17:30)
[2023-08-28] MEDS ORDERED: GLUCOSE 40% GEL 15 GM TUBE PO PRN (17:30)
[2023-08-28] MEDS ORDERED: CARBOHYDRATES FOR HYPOGLYCEMIA PO PRN (17:30)
[2023-08-28] MEDS ORDERED: GLUCOSE 10 TAB/TUBE PO PRN (17:30)
[2023-08-28] MEDS: KETOROLAC TROMETHAMINE 15 MG/ML VIAL IV SCH (17:40)
[2023-08-28] MEDS: INSULIN ASPART PER UNIT CHARGE SC SCH (17:43)
[2023-08-28] MEDS: VANCOMYCIN HCL 2,000 MG in SODIUM CHLORIDE 0.9% 500 ML IV ONE (17:52)
[2023-08-28 18:08] LABS: Creatinine Clr Calc Pharmacy 87.9 ml/min; Est GFR (African American) 99.9 ml/min; Est GFR (Non-African American) 86.2 ml/min
--- NOTE | 2023-08-28 18:39 | Consultation ---
Date of Consultation August 28, 2023 Assessment & Plan (1) Septic arthritis of knee, right: Planned for R TKA, however, there was evidence of infection. Synovial fluid analysis and path pending. Continues on vancomycin. No evidence of sepsis. Cont per orthopedics. (2) Osteoarthritis of right knee: Pain control as needed in post op state. Of note, he typically takes hydrocodone 10/325mg QID. As he is now on scheduled Tylenol, will place him on oxycodone q6h to avoid overdosing him on acetaminophen. (3) DM type 2 (diabetes mellitus, type 2): Insulin dependent and on Ozempic. A1C is 7.9 from 08/02/23. Cont basal bolus insulin per glycemic pharmacist. The patient typically takes 30 to 45 units of lantus once daily and doesn't use short acting insulin. He reports taking 17 Units this morning preoperatively. (4) Chronic kidney disease (CKD), stage III (moderate): chronic, stable. BMP in am. (5) Mild aortic stenosis: ELBERT heard on exam. Will stop the maintenance fluids that are currently running to avoid fluid overload. This patient is not very mobile at this point. Will plan to resume Demadex in am. (6) H/O cardiac arrest: h/o prior cardiac arrest in Feb 2017 intra-operatively, thought to be due to hypoxia/apnea followed by a bradyarrhythmia and wide complex arrhythmia. Echo and stress test following event did not suggest cardiac etiology. (7) HTN (hypertension): chronic, at goal. Cont home meds including Demadex, spironolactone, verapamil, Toprol XL (8) Anxiety: chronic, stable. Cont sertraline per home regimen. DVT proph: ASA 81mg PO BID per primary team Full Code Dispo-uncertain at this time. I spent a total [id number] coordinating, documenting, and providing care for this patient excluding time spent in the performance of separately billed services [place] Sarkar DO [facility] Hospitalist History of Present Illness Reason for Consultation: medical management Attending Physician: Arian Dee DO History of Present Illness 72 yo M diabetic man with diabetes, hypertension, PMR, OA, pulmonary hypertension, HENRIK and COPD presenting for I& D of right knee. He recently underwent a left total knee arthroplasty on 06/09/23 and began having pain in his right knee noted at the two week followup. The right knee was afflicted with known osteoarthritis and he was given a steroid injection on 06/27/23. He presented on 08/01 with increasing pain in his right knee, he was planned for an elective right knee arthroplasty. He was found to have a very large tight effusion to his right knee. When the arthrotomy was made a large amount of infected appearing synovial fluid was exasperated from the joint. There was enough purulent appearing tissue within the knee joint to cause concern for possible infection. Small biopsies were sent to path returning with elevated PMNs concerning for infection. His knee was irrigated with NSS. Of note, the chondral surface was severely affected and did not appear to be standard OA. There was necrosis and wearing away of the chondral surfaces which may be the result of chronic infection. The patient was recovered. Medicine is consulted for post op medical management. Allergies Allergy/AdvReac Type Severity Reaction Status Date / Time No Known Allergies Allergy Verified 08/28/23 10:52 Home Medications Medication Instructions Recorded Confirmed Type folic acid 1 mg tablet 1 mg PO QAM 12/10/18 08/28/23 History tamsulosin 0.4 mg capsule 0.8 mg PO QAM #30 caps 12/10/18 08/28/23 History acetaminophen 500 mg tablet 1,000 mg PO Q6H PRN Pain 01/30/19 08/28/23 History cholecalciferol (vitamin D3) 50 2,000 unit PO QAM 01/30/19 08/28/23 History mcg (2,000 unit) tablet fluocinonide 0.05 % topical 1 applic topical BID PRN Rash 01/30/19 08/28/23 History ointment lorazepam 0.5 mg tablet 0.5 mg PO DAILY PRN Anxiety 01/30/19 08/28/23 History pantoprazole 40 mg tablet,delayed 40 mg PO QAM 01/30/19 08/28/23 History release polyethylene glycol 3350 17 17 g PO DAILY PRN Constipation 01/30/19 08/28/23 History gram/dose oral powder (Miralax) pregabalin 100 mg capsule 100 mg PO TID 01/30/19 08/28/23 History spironolactone 25 mg tablet 12.5 mg PO QAM 01/30/19 08/28/23 History verapamil 120 mg tablet 120 mg PO Q2D 01/30/19 08/28/23 History torsemide 100 mg tablet 50 mg PO QAM 12/25/19 08/28/23 History atorvastatin 40 mg tablet 40 mg PO QAM 06/06/22 08/28/23 History semaglutide 0.25 mg or 0.5 mg (2 0.25 mg subcut Q7D 06/06/22 08/28/23 History mg/3 mL) subcutaneous pen injector (Ozempic) CPAP Machine #1 ea 09/21/22 08/28/23 Rx cyanocobalamin (vitamin B-12) 5,000 mcg sublingual QAM 05/24/23 08/28/23 History 5,000 mcg sublingual tablet (Vitamin B-12) metoprolol succinate 25 mg 25 mg PO QAM 05/24/23 08/28/23 History tablet,extended release 24 hr (Toprol XL) sertraline 150 mg capsule 150 mg PO QAM 05/24/23 08/28/23 History hydrocodone 10 mg-acetaminophen 1 tab PO Q6H PRN Pain (Scale Score 08/28/23 08/28/23 History 325 mg tablet 7-10) insulin glargine 100 unit/mL (3 30 unit subcut QAM 08/28/23 08/28/23 History mL) subcutaneous pen (Lantus Solostar U-100 Insulin) Patient History Medical History H/O cardiac arrest Alcohol abuse Pulmonary hypertension PASP 41 mmHg on 12/2022 echo Heart failure History of blood transfusion 2017 History of anesthesia reaction during left DANY 2017 @ [facility] > Per [facility] discharge summary (03/08/17): Intraoperative bradycardia/unresponsive/hypotensive > CPR begun/epi > wide complex tachycardia s/p synchronized cardioversion shocks- transferred to ICU intubated. Stabilized next day and went back to OR to complete DANY. Tolerated procedure okay and sent back to ICU (extubated next day). Hx heavy ETOH use noted. Chronic anemia Iron deficiency Following closely with [facility] heme/onc, "Cause of anemia is likely multifactorial including ACD/AI, renal insufficiency, andiron deficiency" PMR (polymyalgia rheumatica) Aortic stenosis Echo 12/2022: Moderate aortic stenosis Cardiac arrhythmia Per [facility] discharge summary (03/08/17): Intraoperative bradycardia/unresponsive/hypotensive during Left DANY > CPR begun/epi > wide complex tachycardia s/p synchronized cardioversion shocks- transferred to ICU intubated. Stabilized next day and went back to OR to complete DANY. Tolerated procedure okay and sent back to ICU (extubated next day). Hx heavy ETOH use noted. Pt has had anesthesia since (colonoscopy 2018, B/L cataracts 06/2022) without issue Follows with Dr. Remy Arthritis Personal history of diabetic foot ulcer Diabetic peripheral neuropathy associated with type 2 diabetes mellitus feet Morbid obesity HENRIK (obstructive sleep apnea) CPAP (current occasional use, spoke with patient at PAT visit 05/26/23- patient voiced that he will plan to be compliant prior to DOS) Pseudogout hx Spinal stenosis Chronic kidney disease (CKD), stage III (moderate) Diverticular disease Diabetes mellitus, type 2 Hearing deficit hearing aids b/l Anxiety Hypertension controlled, stable per pt Hyperlipidemia Surgical History History of left knee replacement 06/09/23 [facility] Hx of left cataract extraction History of right cataract surgery History of carpal tunnel surgery of right wrist History of lumbar spinal fusion History of total left hip replacement Left DANY anterior (03/01/17): SAB at L3-4 at [facility] > Per [facility] discharge summary (03/08/17): Intraoperative bradycardia/unresponsive/hypotensive > CPR begun/epi > wide complex tachycardia s/p synchronized cardioversion shocks- transferred to ICU intubated. Stabilized next day and went back to OR to complete DANY. Tolerated procedure okay and sent back to ICU (extubated next day). Hx heavy ETOH use noted. History of arthroscopy of left knee History of left knee surgery History of colonoscopy History of esophagogastroduodenoscopy (EGD) History of tooth extraction partial upper and lower denture History of wisdom tooth extraction Family History Mother Family history of diabetes mellitus Brother Family history of diabetes mellitus Sister Family history of diabetes mellitus Other No family history of adverse response to anesthesia Social History Smoking Status: Former smoker Tobacco Type: Cigarettes Cigarettes Per Day: Quit 2016; Second Hand Exposure: No; Do You Dip or Chew Tobacco: No; Tobacco Cessation Education Requested by Patient: No Hx Alcohol Use: Yes Alcohol type: beer Hx Substance Use: No Preferred Language: Sinhala Communication Ability: Effective Well Tender Required: No Beliefs That Will Affect Care: None Current Living Situation: Other Current Living Situation Comment: lives with ex- and her new -in their basement Feels Safe at Home: Yes Safety Concerns: Feels Safe At This Time Assistive Devices: CPAP, Denture - Upper, Denture - Lower, Glasses, Hearing Aid - Bilateral, Lift Chair, Walker and Wheelchair Physical Exam Physical Exam: CONSTITUTIONAL: WNWD, vitals as above, generally well-appearing, NAD EYES: normal conjunctivae, no scleral icterus ENT: external ear and nose normal, MMM NECK: trachea midline RESPIRATORY: clear to auscultation bilaterally, no crackles, rales or wheezes, normal respiratory effort CARDIOVASCULAR: regular rate and rhythm, S1 and 2 heard without murmurs, gallops or rubs, no JVD, no peripheral edema CHEST: inspection of chest was normal GASTROINTESTINAL: soft, nontender, ND, no guarding MUSCULOSKELETAL: generalized weakness, Lower extremities limited 2/2 post op state, right knee with surgical dressing in place. Head is normocephalic and atraumatic SKIN: warm and dry NEUROLOGIC: No facial palsy, no dysarthria. CN 2-12 grossly intact, no sensory deficit, normal cognition, normal speech, no tremor PSYCHIATRIC: alert cooperative and oriented to person, place and time. Euthymic mood, makes good eye contact, language grossly intact, recent and remote memory grossly intact. Results & Data Vital Signs (Past 12 Hours) Vital Signs Temp Pulse Pulse Resp BP BP Pulse Ox 08/28/23 17:46 36.5 C 81 17 133/83 95 08/28/23 17:14 36.7 C 81 17 114/56 L 95 08/28/23 16:45 36.8 C 86 16 98/53 L 95 08/28/23 16:10 80 15 117/56 L 91 08/28/23 15:55 82 14 105/88 93 08/28/23 15:40 36.7 C 86 19 109/48 L 93 08/28/23 15:30 88 13 110/53 L 92 08/28/23 15:20 88 20 108/50 L 93 08/28/23 15:10 86 16 112/55 L 95 08/28/23 15:02 36.8 C 80 12 107/51 L 95 08/28/23 10:45 36.8 C 75 20 145/77 H 97 O2 Del Method O2 Flow Rate 08/28/23 17:46 Room Air 08/28/23 17:14 Room Air 08/28/23 16:45 Room Air 08/28/23 16:10 Room Air 08/28/23 15:55 Room Air 08/28/23 15:40 Room Air 08/28/23 15:30 Room Air 08/28/23 15:20 Room Air 08/28/23 15:10 Oxymask 4 08/28/23 15:02 Oxymask 6 08/28/23 10:45 Room Air Laboratory Results BMP 08/28/23 17:28 Creatinine 0.90 Medications Administered Current Inpatient Medications Acetaminophen (Acetaminophen 500 Mg Tab) 1,000 mg PO Q8 KAL Stop: 09/27/23 21:59 Aspirin (Aspirin 81 Mg Ectab) 81 mg PO BID KAL Stop: 09/27/23 20:59 Atorvastatin Calcium (Atorvastatin 40 Mg Tab) 40 mg PO QAM KAL Stop: 09/28/23 08:59 Bisacodyl (Bisacodyl 10 Mg Supp) 10 mg NH DAILY PRN PRN Reason: Constipation Stop: 09/27/23 16:35 Dextrose (Dextrose 50% 50 Ml Syringe) 25 - 50 ml IV UD PRN; Protocol PRN Reason: Hypoglycemia Protocol Stop: 09/27/23 17:29 Docusate Sodium (Docusate Sodium 100 Mg Cap) 100 mg PO BID KAL Stop: 09/27/23 20:59 Fluocinonide (Fluocinonide 0.05% Oint 15 Gm Tube) 1 appln EXT BID PRN PRN Reason: Rash Stop: 09/27/23 16:35 Glucagon (Glucagon For Inj 1 Mg Vial) 1 mg IM UD PRN; Protocol PRN Reason: Hypoglycemia Protocol Stop: 09/27/23 17:29 Glucose (Glucose 40% Gel 15 Gm Tube) 15 - 30 gm PO UD PRN; Protocol PRN Reason: Hypoglycemia Protocol Stop: 09/27/23 17:29 Glucose (Glucose 10 Tab/Tube) 4 - 8 tab PO UD PRN; Protocol PRN Reason: Hypoglycemia Protocol Stop: 09/27/23 17:29 Hydromorphone HCl (Hydromorphone Inj 0.5 Mg/0.5 Ml Syr) 0.5 mg IV Q4H PRN PRN Reason: Pain or Pre PT Stop: 09/11/23 16:35 Sodium Chloride (Nss) 1,000 mls @ 100 mls/hr IV .Q10H REPLACED BY [facility] Stop: 08/29/23 06:00 Last Admin: 08/28/23 16:43 Dose: 100 mls/hr Cefazolin Sodium (Ancef 2000mg) 2,000 mg in 15 mls @ 3.75 mls/min IV Q8H REPLACED BY [facility]; Protocol Stop: 08/29/23 06:03 Vancomycin HCl 2,000 mg/ (Sodium Chloride) 540 mls @ 200 mls/hr IV NOW ONE Stop: 08/28/23 19:56 Last Admin: 08/28/23 17:52 Dose: 200 mls/hr Vancomycin HCl 1,250 mg/ (Sodium Chloride) 275 mls @ 200 mls/hr IV Q12H REPLACED BY [facility] Stop: 10/10/23 04:59 Insulin Aspart (Insulin Aspart Per Unit Charge) 0 units SC ACHS REPLACED BY [facility] Stop: 09/27/23 17:14 Last Admin: 08/28/23 17:43 Dose: 6 units Ketorolac Tromethamine (Ketorolac Tromethamine 15 Mg/Ml Vial) 15 mg IV Q6H REPLACED BY [facility] Stop: 08/30/23 12:01 Last Admin: 08/28/23 17:40 Dose: 15 mg Lorazepam (Lorazepam 0.5 Mg Tab) 0.5 mg PO DAILY PRN PRN Reason: Anxiety Stop: 09/27/23 16:35 Magnesium Hydroxide (Magnesium Hydroxide Susp 30 Ml Udc) 30 ml PO Q6H PRN PRN Reason: Constipation Stop: 09/27/23 16:35 Metoclopramide HCl (Metoclopramide Hcl Inj 5 Mg/Ml 2 Ml Vial) 10 mg IV Q6H PRN PRN Reason: Nausea And Vomiting Stop: 09/27/23 16:35 Metoprolol Succinate (Metoprolol Succ 25mg Ext Rel Tab) 25 mg PO QAM REPLACED BY [facility] Stop: 09/28/23 08:59 Miscellaneous (Carbohydrates For Hypoglycemia ) 15 - 30 gm PO UD PRN PRN Reason: Hypoglycemia Treatment Stop: 09/27/23 17:29 Miscellaneous Information (Pharmacy Glycemic Mgmt Consult) 1 each N/A UD PRN PRN Reason: Consult Stop: 09/27/23 16:35 Miscellaneous Information (Vancomycin Consult Active) 1 each N/A UD PRN PRN Reason: Consult Stop: 09/27/23 16:35 Modafinil (Modafinil 100 Mg Tab) 200 mg PO BID PRN PRN Reason: sleepiness Stop: 09/27/23 16:35 Multivitamins (Multivitamin Tab) 1 tab PO QAM REPLACED BY [facility] Stop: 09/28/23 08:59 Naloxone HCl (Naloxone Hcl 0.4 Mg/1 Ml Vial/Carp) 0.1 mg IV Q5M PRN PRN Reason: Oversedation/Resp Depression Stop: 09/27/23 16:35 Ondansetron HCl (Ondansetron Inj 2 Mg/Ml 2 Ml Vial) 4 mg IV Q6H PRN PRN Reason: Nausea And Vomiting Stop: 09/27/23 16:35 Oxycodone HCl (Oxycodone Hcl Ir 5 Mg Tab (Immediate Release)) 5 - 10 mg PO Q4H PRN PRN Reason: Pain or Pre PT Stop: 09/11/23 16:35 Pregabalin (Pregabalin 100 Mg Cap) 100 mg PO TID REPLACED BY [facility] Stop: 09/27/23 20:59 Sennosides (Senna 8.6 Mg Tab) 17.2 mg PO HS REPLACED BY [facility] Stop: 09/27/23 20:59 Sertraline HCl (Sertraline Hcl 50 Mg Tablet) 150 mg PO QAM REPLACED BY [facility] Stop: 09/28/23 08:59 Spironolactone (Spironolactone 12.5 Mg Tab) 12.5 mg PO QAM REPLACED BY [facility] Stop: 09/28/23 08:59 Tamsulosin HCl (Tamsulosin Hcl 0.4 Mg Cap) 0.8 mg PO QAM REPLACED BY [facility] Stop: 09/28/23 08:59 Torsemide (Torsemide 100 Mg Tab) 100 mg PO QAM REPLACED BY [facility] Stop: 09/28/23 08:59 Verapamil HCl (Verapamil Hcl 40 Mg Tab) 120 mg PO Q2D REPLACED BY [facility] Stop: 09/28/23 08:59 (3) DM type 2 (diabetes mellitus, type 2) Diabetes mellitus detention insulin use: with terminal make up operator use Diabetes mellitus complication status: with neurologic complications Diabetes mellitus complication detail: with polyneuropathy Qualified Code(s): E11.42 - Type 2 diabetes mellitus with diabetic polyneuropathy; Z79.4 - long-term (current) use of insulin (7) HTN (hypertension) Hypertension type: primary hypertension Qualified Code(s): I10 - Essential (primary) hypertension
[2023-08-28] MEDS ORDERED: HYDROcodone/ACETAMINOPHEN 10/325 TAB PO PRN (18:57)
[2023-08-28] MEDS: ASPIRIN 81 MG ECTAB PO SCH (20:38)
[2023-08-28] MEDS: PREGABALIN 100 MG CAP PO SCH (20:38)
[2023-08-28] MEDS: DOCUSATE SODIUM 100 MG CAP PO SCH (20:38)
[2023-08-28] MEDS: SENNA 8.6 MG TAB PO SCH (20:39)
--- OUTSIDE RECORDS SUMMARY | 2023-08-28 21:06 | External Medical Summary | Summary of Care ---
Author Name Unknown Organization [facility] Address [address] [facility] [place] [address] Phone [phone] Care Team Providers Care Capacity Planner Name Role Phone Matilde Mauricio Primary Care Provider + [phone] Reason for Visit * Reason Comments Medication Administration Retacrit 40,00 0 units * Episode Based Medications (Routine) - Authorized Specialty Diagnoses / Procedures Referred By Fabian t Referred To Contact Diagnoses Chronic kidney disease, stage 3b (HCC) Anemia in chronic renal disease Procedures [place] EPOETIN KAI, NON-ESRD [place] INJ RETACRIT NON-ESRD USE Eryn Morris CRNP [address] [facility] [place] [address] Anc Hem/Onc [place] DEPT CLOSED - 03/07/[address] [place] [address] Referral ID Status Reason Start Date Expiration Date V isits Requested Visits Authorized [id number] Authorized 06/30/2023 06/29/[phone] Encounter Details Date Type Department Care Team (Late st Contact Info) Description 08/18/2023 1:30 PM EDT Immunization/I njection Hematology/Oncology Treatment, [place] [address] [place] [address] Nurse, Med [address] [phone] Chronic kidney disease, stage 3b ([facility])* Allergies No known active allergiesdocumented as of this encounter (statuses as of 08/18/2023) Medications Medication Sig Dispensed Refills Start Date [...] for Anxiety. 15 Tablet 0 10/15/2021 Active Additional Information Patient not taking.Reported on 06/30/2023 Modafinil 200 MG Oral Tablet (Provigil)Indication s:Sleep [...] times a day as needed. 0 Active Espion LimitedTouch Verio w/Device Kit Use to test blood sugars 1 time a day E11.9 1 Kit 0 09/14/2022 Active OneTouch Verio In Vitro Strip (Glucose Blood) Use to test blood sugars 1 time a day E11.9 100 Strip 3 09/14/2022 Active Insulin Glargine Solostar 100 UNIT/ML Subcutaneous Solution Pen-injectorIndicati ons:Type 2 diabetes mellitus with hemoglobin A1c goal of less than 7.0% ([facility]) Inject 30 units under the skin daily and increase as per MTM pharmacist with max TDD 45 units daily 45 mL 3 11/18/2022 Active Additional Information Patient taking differently: Pt reports he is currently taking 15 units Lantus in the morning., Reported on 06/30/2023 Spironolactone 25 MG Oral Tablet (Aldactone)Indicatio ns:Pulmonary hypertension (HCC) TAKE ONE-HALF TABLET BY MOUTH EVERY MORNING 50 Tablet 1 12/07/2022 4 Active Dexcom G7 Sensor Use as directed. Via DME 0 12/16/2022 Active Torsemide 100 MG Oral Tablet (Demadex)Indications :HTN, goal below 140/90 Take one-half Tablet by mouth in the morning. 90 Tablet 3 12/22/2022 Active Atorvastatin Calcium 40 MG Oral Tablet (Lipitor)Indications :Dyslipidemia TAKE ONE TABLET BY MOUTH EVERY MORNING 100 Tablet 3 01/26/2023 4 Active Additional Information Patient taking differently: Reports he takes in the evening., Reported on 06/30/2023 Fluticasone Propionate 50 MCG/ACT Nasal Suspension (Flonase)Indications [...] 4 Active Additional Information Patient taking differently: Taking 0.5 mg on Monday., Reported on 06/30/2023 Sertraline HCl 100 MG Oral Tablet (Zoloft)Indications: [...] 500 MCG Oral Tablet (vitamin B-12) Take 10 Tablets by mouth in the morning. 0 Active Verapamil HCl ER 120 MG Oral [...] before bedtime. 90 Capsule 3 06/07/2023 Active Folic Acid 1 MG Oral Tablet TAKE ONE TABLET BY MOUTH EVERY MORNING 100 Tablet 1 07/01/2023 5 Active Glucerna Shake Oral Liquid Take by mouth. 0 Active NovoLOG FlexPen 100 UNIT/ML Subcutaneous Solution Pen-injector (insulin aspart) Inject under the skin three times a day with meals. Sliding scale with meals: 70-150 - 0 units 151-200 - 1 unit 201-250 - 2 units 251-300 - 3 units 301-350 - 4 units 351-400 - 6 units >400 call provider 0 Active Aspirin 81 MG Oral Capsule Take by mouth 2 times a day. 0 Active Tamsulosin HCl 0.4 MG Oral Capsule (Flomax)Indications: BPH with obstruction/lower urinary tract symptoms TAKE TWO CAPSULES BY MOUTH EVERY MORNING 200 Capsule 3 07/02/2023 5 Active HYDROcodone-Acetamin ophen 10-325 MG Oral TabletIndications:Pr imary osteoarthritis of both knees,Pseudogout of multiple joints Take 1 Tablet by mouth every 6 hours as needed for Pain, Mild. 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 03/26 Pseudogout of multiple joints 09/18/2014 DJD (degenerative joint disease) of knee 015 Pseudogout of knee 03/14/2014 Chronic narcotic use 12/23/2010 Type 2 diabetes mellitus wit h hemoglobin A1c goal of less than 7.0% 11/05/2009 Overview: ICD-10 update of inactive term documented as of this encounter (statuses as of 08/18/2023) Resolved Problems Problem Noted Date Diagnosed Date Resolved Date Anemia in chronic renal disease 06/30/2023 07/06/2023 Anemia due to stage 3 chronic kidney disease 03/09/2023 Overview: Per CKD protocol Chronic kidney [...] as of this encounter (statuses as of 08/18/2023) Immunizations Name Administration Dates Next Due COVID-19 mRNA, LNP-s, No Pre serve, 2-Dose Series ([employer]) 03/04/2021,06/30/2020,06/09/2020 COVID-19, LNP-s, No Preserve , Pool-sucrose, Ages 12+ (Pfizer) 12/07/2021 COVID-19, MRNA-LNP, 23-24, P F, 30 MCG/0.3 mL, 12 YRS AND ABOVE, IM ([employer]-Comirnaty) 03/07/2023 Covid-19, Mrna, Lnp-s, Pf, B ivalent, 30 Mcg, IM, 12 yrs and above ([employer]) 04/12/2022 Pneumococcal Conjugate Vacc, 13 Valent (Prevnar) [...] Date Smoking Tobacco: Former Cigarettes 0.5 10 1 05/01/2006 - 03/01/2017 Passive Smoke Exposure: Current Smokeless Tobacco: Never Tobacco Cessation:Counseling Given: Not Answered Comments:Pt had smoked for quite some time and then quit- restarted 10 years ago. Alcohol Use Standard Drinks/Week Comments Yes 0 (1 standard drink = 0.6 oz pur e alcohol) occasionally PHQ-2 Answer Date Recorded PHQ Adult Total Score 9 05/05/2023 Hunger Vital Sign Answer Date Recorded Within the past 12 months, y ou worried that your food would run out before you got the money to buy more. Never true 05/05/19 24 Within the past 12 months, t he food you bought just didn't last and you didn't have money to get more. Never true 05/05/2023 Sex and Gender Information Value Date Recorded Sex Assigned at Male 11/01/2021 4:20 PM EDT Gender Identity Male 11/01/2021 4:20 PM EDT Sexual Orientation Straight 04/08/2021 3: 47 PM EST Job Start Date Occupation Industry Not on file Not on file Not on file documented as of this encounter Last Filed Vital Signs Vital Sign Reading Time Taken Comments Blood Pressure 134/80 08/18/2023 1:04 PM EDT Pulse - - Temperature - - Respiratory Rate - - Oxygen Saturation - - Inhaled Oxygen Concentration - - Weight - - Height - - Body Mass Index - - documented in this encounter Nursing Notes * Imani Rajput LPN - 08/18/2023 1:21 PM EDT Retacrit 40,000 units administered SQ into the left upper extremity per standing order. HGB 10.5 Patient tolerated injection and will return in 1 week documented in this encounter Plan of Treatment Upcoming Encounters Date Type Department Care Team (Late st Contact Info) Description 08/25/2023 12:30 PM EDT Laboratory [facility] [place] [address] [place] [phone] [place] [facility] [address] [facility] [place] [address] 08/25/2023 1:00 PM EDT Immunization/Injecti on Hematology/Oncology Treatment, [place] [address] [place] [phone] Nurse, Med 4 [address] [facility] [place] [address] 09/27/2023 10:30 AM EDT Office Visit Rheumatology [place] [address] [facility] [place], [place] [address] Tommy Rodriguez PA-C [address] [place] [address] 10/19/2023 11:20 AM EDT Office Visit Family Practice [address] [place] [address] [facility] [phone] Matilde Mauricio DO 293 [place] [address] 10/27/2023 10:10 AM EDT Laboratory Laboratory [address] [place] [phone] [place] [address] 11/02/2023 11:30 AM EDT Office Visit Hematology/Oncology [facility] [address] [place] [address] Eryn Morris CRNP [address] [place] [address] 01/11/2024 4:00 PM EDT Cardiac Studies Cardiac Studies, [facility] [address] [facility] [place] [address] Scheduled Procedures Name Priority Associated Diagnoses Date/Ti me COLONOSCOPY FLEXIBLE PROXIMA L DIAGNOSTIC Recall History of colon polyps ARTHROPLASTY TOTAL SHOULDER Localized osteoarthritis of left shoulder REVERSE TOTAL SHOULDER ARTHROPLASTY Localized osteoarthritis of left shoulder Health Maintenance Due Date Last Done Comments DTaP,Tdap,and Td Vaccines (1 - Tdap) 12/26/2007 12/25/2007 *COPD SEVERITY VERIFIED BY PFT 02/27/2019 Diabetic Foot Exam 04/07/2023 04/07/2022, 1 06/09/2020, 12/12/2019, Additional history exists COLONOSCOPY-ANNUAL AGES 18-100 06/09/2023 06/09/2022, 06/09/2022, 02/08/2019, Additional history exists Albumin/Creatinine Ratio 08/31/2023 023, 07/16/2021, 05/08/2020, Additional history exists HbA1c 11/24/2023 05/26/2023, 11/22, 12/05/2022, Additional history exists CKD PHOS USE SMARTSET 33394 12/14/202311/23, 01/05/2022, 05/08/2020, Additional history exists Influenza Vaccine (FLU shot) (Season Ended) 2023 01/30/2021, 01/16/2020, 01/10/2019, Additional history exists GFR 01/21/2024 07/21/2023, 04/24, 02/17/2023, Additional history exists Diabetic Eye Exam 03/10/2024 03/10/2023, , 02/16/2023, Additional history exists O2 ASSESSMENT COMPLETED IN PAST YEAR FOR COPD 07/20/2024 07/21/2023 CKD HGB USE SMARTSET 04076 08/17/202408/17, 08/18/2023, 08/11/2023, Additional history exists Lipid Panel 04/07/2028 04/07/2023, [...] on patient's age to complete this topic Hepatitis B Aged Out No longer eligi ble based on patient's age to complete this [...] Action Action Date Dose Rate Site Epoetin Kai-epbx (Retacrit) 82031 UNIT/ML inj 40,000 Units 40,000 Units, Subcutaneous, ONCE, On Mon08/18/23 at 1345, For 1 dose Given 08/18/2023 1:17 PM EDT 40,000 Units Arm Left Upper documented in this encounter Care Teams Capacity Planner Relationship Specialty Start Date End Date Matilde Mauricio DO [address] [facility] [address] PCP - General Family Medicine 12/15/22 documented as of this encounter
--- OUTSIDE RECORDS SUMMARY | 2023-08-28 21:06 | External Medical Summary ---
Author Name Unknown Address Unknown Organization K[facility] [place] [address] Laboratory Report Ordering Provider Test Date Status KERRIE ESPINOZA 08/18/2023 12:29:38 Final Observation Date Value Abnormality Reference (Units ) Status WBC, Total 08/18/2023 12:29:38 6.78 4.00-10.8 0 (K/uL) Final RBC 08/18/2023 12:29:38 4.41 4.50-5.25 (M/uL) Final Hemoglobin 08/18/2023 12:29:38 10.5 Below low normal 14 .0-16.8 (g/dL) Final HCT 08/18/2023 12:29:38 35.4 Below low normal 40. 0-48.4 (%) Final MCV 08/18/2023 12:29:38 80.3 82.0-99.5 (fL) Final MCH 08/18/2023 12:29:38 23.8 27.0-34.0 (pg) Final MCHC 08/18/2023 12:29:38 29.7 32.0-36.0 (g/dL) Final RDW 08/18/2023 12:29:38 18.7 11.5-15.5 (%) Final Platelets 08/18/2023 12:29:38 413 Above high normal 14 0-400 (K/uL) Final MPV 08/18/2023 12:29:38 7.7 6.6-11.1 ( fL) Final Performing Location [facility] [place] [address]
--- OUTSIDE RECORDS SUMMARY | 2023-08-28 21:06 | External Medical Summary ---
Author Name Unknown Address Unknown Organization K09[facility] [place] [address] Laboratory Report Ordering Provider Test Date Status KERRIE ESPINOZA 08/25/2023 12:23:29 Final Observation Date Value Abnormality Reference (Units ) Status SYNC LEUKOCYTES IN BLOOD BY AUTOMATED COUNT 08/25/2023 12:23:29 7.35 4.00-10.80 (K/uL) Final Segs 08/25/2023 12:23:29 81.7 Above high normal 40.0-75.0 (%) Final Lymphs % 08/25/2023 12:23:29 7.1 Below low normal 18.0-42.0 (%) Final Monos 08/25/2023 12:23:29 11.0 1.0-11.0 (%) Final Eosinophils 08/25/2023 12:23:29 0.1 0.0-6.0 (%) Final Basos 08/25/2023 12:23:29 0.1 0.0-2.0 (%) Final Absolute Segs 08/25/2023 12:23:29 6.00 1.80-7.70 (K/uL) Final Lymphs, absolute 08/25/2023 12:23:29 0.52 Below low normal 1.00-4.80 (K/ul) Final Monos, Abs 08/25/2023 12:23:29 0.81 0.00-1.10 (K/uL) Final Eos, Abs 08/25/2023 12:23:29 0.01 0.00-0.70 (K/uL) Final Basos, Abs 08/25/2023 12:23:29 0.01 0.00-0.20 (K/uL) Final Performing Location [place] [place] [address]
--- OUTSIDE RECORDS SUMMARY | 2023-08-28 21:06 | External Medical Summary ---
Author Name Unknown Address Unknown Organization K09[facility] [place] [address] Laboratory Report Ordering Provider Test Date Status KERRIE ESPINOZA 08/25/2023 12:23:29 Final Observation Date Value Abnormality Reference (Units ) Status WBC, Total 08/25/2023 12:23:29 7.35 4.00-10.8 0 (K/uL) Final RBC 08/25/2023 12:23:29 4.61 4.50-5.25 (M/uL) Final Hemoglobin 08/25/2023 12:23:29 10.8 Below low normal 14 .0-16.8 (g/dL) Final HCT 08/25/2023 12:23:29 36.6 Below low normal 40. 0-48.4 (%) Final MCV 08/25/2023 12:23:29 79.4 82.0-99.5 (fL) Final MCH 08/25/2023 12:23:29 23.4 27.0-34.0 (pg) Final MCHC 08/25/2023 12:23:29 29.5 32.0-36.0 (g/dL) Final RDW 08/25/2023 12:23:29 18.5 11.5-15.5 (%) Final Platelets 08/25/2023 12:23:29 333 140-400 (K /uL) Final MPV 08/25/2023 12:23:29 7.6 6.6-11.1 ( fL) Final Performing Location [facility] [place] [address]
--- OUTSIDE RECORDS SUMMARY | 2023-08-28 21:06 | External Medical Summary ---
Author Name Unknown Address Unknown Organization K09:[facility] [place] [address] Laboratory Report Ordering Provider Test Date Status KERRIE ESPINOZA 08/25/2023 12:23:29 Final Observation Date Value Abnormality Reference (Units ) Status Nucleated erythrocytes/100 leukocytes [Ratio] in Blood by Automated count 08/25/2023 12:23:29 Final Elliptocytes [Presence] in Blood by Light microscopy 08/25/2023 12:23:29 Moderate Abnormal None Seen Final Performing Location [facility] [place] [address]
--- OUTSIDE RECORDS SUMMARY | 2023-08-28 21:06 | External Medical Summary | Summary of Care ---
Author Name Unknown Organization [facility] Address [address] [facility] [place] [address] Phone [phone] Care Team Providers Care Marketing Graphics Specialist Name Role Phone Matilde Mauricio Primary Care Provider + [phone] Reason for Visit * Reason Comments Medication Administration Retacrit 40,00 0 units * Episode Based Medications (Routine) - Authorized Specialty Diagnoses / Procedures Referred By Fabian t Referred To Contact Diagnoses Chronic kidney disease, stage 3b (HCC) Anemia in chronic renal disease Procedures [place] EPOETIN KAI, NON-ESRD [place] INJ RETACRIT NON-ESRD USE Eryn Morris CRNP [address] [facility] [place] [address] Anc Hem/Onc [place] DEPT CLOSED - 03/07/[address] [place] [phone] Referral ID Status Reason Start Date Expiration Date V isits Requested Visits Authorized [id number] Authorized 06/30/2023 06/29/[phone] Encounter Details Date Type Department Care Team (Late st Contact Info) Description 08/25/2023 1:00 PM EDT Immunization/I njection Hematology/Oncology Treatment, [place] [address] [place] [address] Nurse, Med [address] [phone] Chronic kidney disease, stage 3b ([facility])* Allergies No known active allergiesdocumented as of this encounter (statuses as of 08/25/2023) Medications Medication Sig Dispensed Refills Start Date [...] times a day as needed. 0 Active MVP VaultTouch Verio w/Device Kit Use to test blood sugars 1 time a day E11.9 1 Kit 0 09/14/2022 Active OneTouch Verio In Vitro Strip (Glucose Blood) Use to test blood sugars 1 time a day E11.9 100 Strip 3 09/14/2022 Active Insulin Glargine Solostar 100 UNIT/ML Subcutaneous Solution Pen-injectorIndicati ons:Type 2 diabetes mellitus with hemoglobin A1c goal of less than 7.0% (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 03/26 Pseudogout of multiple joints 09/18/2014 DJD (degenerative joint disease) of knee 015 Pseudogout of knee 03/14/2014 Chronic narcotic use 12/23/2010 Type 2 diabetes mellitus wit h hemoglobin A1c goal of less than 7.0% 11/05/2009 Overview: ICD-10 update of inactive term documented as of this encounter (statuses as of 08/25/2023) Resolved Problems Problem Noted Date Diagnosed Date [...] as of this encounter (statuses as of 08/25/2023) Immunizations Name Administration Dates Next Due COVID-19 mRNA, LNP-s, No Pre serve, 2-Dose Series ([employer]) 03/04/2021,06/30/2020,06/09/2020 COVID-19, LNP-s, No Preserve , Pool-sucrose, Ages 12+ (Pfizer) 12/07/2021 COVID-19, MRNA-LNP, 23-24, P F, 30 MCG/0.3 mL, 12 YRS AND ABOVE, IM ([employer]-Comirnaty) 03/07/2023 Covid-19, Mrna, Lnp-s, Pf, B ivalent, 30 Mcg, IM, 12 yrs and above ([employer]) 04/12/2022 Pneumococcal Conjugate Vacc, 13 Valent (Prevnar) [...] Sign Reading Time Taken Comments Blood Pressure 114/69 08/25/2023 12:54 PM EDT Pulse - - Temperature - - Respiratory Rate - - Oxygen Saturation - - Inhaled Oxygen Concentration - - Weight - - Height - - Body Mass Index - - documented in this encounter Nursing Notes * Imani Rajput LPN - 08/25/2023 1:06 PM EDT Retacrit 40,000 units administered SQ into the right upper extremity per standing order. HGB 10.8 Patient tolerated injection and will return once he has surgery and rehab so next appointment were not schedule due to the surgery documented in this encounter Plan of Treatment Upcoming Encounters Date Type Department Care Team (Late st Contact Info) Description 09/27/2023 10:30 AM EDT Office Visit Rheumatology [facility] [address] [facility] [place] [address] Tommy Rodriguez PA-C [address] [employer] [place] [address] 10/19/2023 11:20 AM EDT Office Visit Family Practice [address] [place] [address] 293 [place] [phone] Matilde Mauricio DO 293 [place] [address] 10/27/2023 10:10 AM EDT Laboratory Laboratory [place] [address] [place] [phone] [address] [place] [address] [place] [address] 11/02/2023 11:30 AM EDT Office Visit Hematology/Oncology [facility] 200 [facility] [place] [phone] Eryn Morris CRNP [address] [place] [address] [place] [phone] 01/11/2024 4:00 PM EDT Cardiac Studies Cardiac Studies, [facility] [address] [place] [address] Scheduled Procedures Name Priority Associated Diagnoses Date/Ti me COLONOSCOPY FLEXIBLE PROXIMA L DIAGNOSTIC Recall History of colon polyps ARTHROPLASTY TOTAL SHOULDER Localized osteoarthritis of left shoulder REVERSE TOTAL SHOULDER ARTHROPLASTY Localized osteoarthritis of left shoulder Health Maintenance Due Date Last Done Comments Cologuard 1997 Sigmoidoscopy 1997 DTaP,Tdap,and Td Vaccines (1 - Tdap) 12/26/2007 12/25/2007 *COPD SEVERITY VERIFIED BY PFT 02/27/2019 Fecal Occult Blood Test 08/09/2022 08/09/2021 Diabetic Foot Exam 04/07/2023 04/07/2022, 1 06/09/2020, 12/12/2019, Additional history exists Colonoscopy 06/09/2023 06/09/2022, 05/25, 02/08/2019, Additional history exists Colorectal Cancer Screening 06/09/2023 Albumin/Creatinine Ratio 08/31/2023 023, 07/16/2021, 05/08/2020, Additional history exists HbA1c 11/24/2023 05/26/2023, 11/22, 12/05/2022, Additional history exists CKD PHOS USE SMARTSET 58006 12/14/202311/23, 01/05/2022, 05/08/2020, Additional history exists Influenza Vaccine (FLU shot) (Season Ended) 2023 01/30/2021, 01/16/2020, 01/10/2019, Additional history exists GFR 01/21/2024 07/21/2023, 04/24, 02/17/2023, Additional history exists Diabetic Eye Exam 03/10/2024 03/10/2023, , 02/16/2023, Additional history exists O2 ASSESSMENT COMPLETED IN PAST YEAR FOR COPD 07/20/2024 07/21/2023 CKD HGB USE SMARTSET 26350 08/24/202408/24, 08/25/2023, 08/18/2023, Additional history exists Lipid Panel 04/07/2028 04/07/2023, 12/23, 07/27/2021, Additional history exists Alpha-1 Antitrypsin Completed 06/01/2018 Pneumococcal Vaccine: 65+ Years Completed 03/17/2020, 02/25/2019, 03/04/2010, Additional history exists Zoster Vaccines Completed 03/17/2020, 05/30/2019 AAA Screening Completed 11/02/2021, 02/12/2018 RETIRED - COLONOSCOPY-ANNUAL AGES 18-100 Discontinued 06/09/2022, 06/09/2022, 02/08/2019, Additional history exists COVID-19 Vaccine Completed 03/07/2023, , 12/07/2021, Additional history exists GARDASIL-HPV IMMUNIZATION SERIES Aged Out No longer eligible based on patient's age to complete this topic Hepatitis B Aged Out No longer eligi ble based on patient's age to complete this topic MENINGOCOCCAL (MENACTRA/MENVEO) Aged Out No longer eligible based on patient's age to complete this topic documented as of this encounter Medical Devices Not on filedocumented as of this encounter Visit Diagnoses Diagnosis Chronic kidney disease, stage 3b (HCC)- Primary documented in this encounter Administered Medications Inactive Administered Medications - up to 3 most recent administrations Medication Order MAR Action Action Date Dose Rate Site Epoetin Kai-epbx (Retacrit) 30898 UNIT/ML inj 40,000 Units 40,000 Units, Subcutaneous, ONCE, On Mon08/25/23 at 1330, For 1 dose Given 08/25/2023 1:02 PM EDT 40,000 Units Arm Right Upper documented in this encounter Care Teams Marketing Graphics Specialist Relationship Specialty Start Date End Date Matilde Mauricio DO [address] [facility] [place] [address] PCP - General Family Medicine 12/15/22 documented as of this encounter
--- OUTSIDE RECORDS SUMMARY | 2023-08-28 21:06 | External Medical Summary | Summary of Care ---
Author Name Unknown Organization [facility] Address [address] [facility] [place] [address] Phone [phone] Care Team Providers Care Judicial Registrar Name Role Phone Matilde Mauricio Primary Care Provider Reason for Visit * Reason Comments Outpatient Testing Encounter Details Date Type Department Care Team (Late st Contact Info) Description 08/25/2023 12:30 PM EDT [facility] [address] [place] [phone] [place], Lab Scenery [address] [place] [address] Iron deficiency anemia, unspecified iron deficiency anemia type; Anemia due to stage 3b chronic kidney disease (HCC) Allergies No known [...] Major depressive disorder, recurrent, moderate 0 10/19/2016 [facility] current use of systemic steroids 03/26 Pseudogout [...] mRNA, LNP-s, No Pre serve, 2-Dose Series ([employer]) 03/04/2021,06/30/2020,06/09/2020 COVID-19, LNP-s, No Preserve , Pool-sucrose, Ages 12+ (Pfizer) 12/07/2021 COVID-19, MRNA-LNP, 23-24, P F, 30 MCG/0.3 mL, 12 YRS AND ABOVE, IM ([employer]-Comirnat) 03/07/2023 Covid-19, Mrna, Lnp-s, Pf, B ivalent, 30 Mcg, IM, 12 yrs and above ([employer]) 04/12/2022 Pneumococcal Conjugate Vacc, 13 Valent (Prevnar) [...] Contact Info) Description 08/25/2023 1:00 PM EDT Immunization/Injecti on Hematology/Oncology Treatment, [place] 200 [facility], [place] [address] Nurse, Med 4 200 [facility] [place] [address] Arrived 09/27/2023 10:30 AM EDT Office Visit Rheumatology [facility] [address] [place] [address] Tommy Rodriguez PA-C [address] [place] [address] 10/19/2023 11:20 AM EDT Office Visit Family Practice [address] [place] [address] 293 [place] [address] Matilde Mauricio, DO 293 [place] [address] 10/27/2023 10:10 AM EDT [facility] [address] [place] [address] [place] [address] [place] [address] 11/02/2023 11:30 AM EDT Office Visit Hematology/Oncology [facility] 200 [place] [phone] Eryn Morris CRNP 400 [facility] [place] [address] 01/11/2024 4:00 PM EDT Cardiac Studies Cardiac Studies, [facility] [address] [place] [address] Pending Results Name Type Priority Associated Diagnoses Date /Time CBC WITH WBC DIFFERENTIAL Lab STAT Iron deficiency anemia, unspecified iron deficiency anemia type Anemia due to stage 3b chronic kidney disease (HCC) 08/25/2023 12:23 PM EDT CBC Lab STAT Iron deficiency anemia, unspecified iron deficiency anemia type Anemia due to stage 3b chronic kidney disease (HCC) 08/25/2023 12:23 PM EDT DIFFERENTIAL, AUTOMATED Lab STAT Iron deficiency anemia, unspecified iron deficiency anemia type Anemia due to stage 3b chronic kidney disease (HCC) 08/25/2023 12:23 PM EDT Scheduled Procedures Name Priority Associated Diagnoses Date/Ti [...] Additional history exists CKD PHOS USE SMARTSET 78849 12/14/202311/23, 01/05/2022, 05/08/2020, Additional history exists Influenza Vaccine (FLU shot) (Season Ended) 2023 01/30/2021, 01/16/2020, 01/10/2019, Additional history exists GFR 01/21/2024 07/21/2023, 04/24, 02/17/2023, Additional history exists Diabetic Eye Exam 03/10/2024 03/10/2023, , 02/16/2023, Additional history exists O2 ASSESSMENT COMPLETED IN PAST YEAR FOR COPD 07/20/2024 07/21/2023 CKD HGB USE SMARTSET 22067 08/17/202408/17, 08/18/2023, 08/11/2023, Additional history exists Lipid [...] Iron deficiency anemia, unspecified iron deficiency anemia type Anemia due to stage 3b chronic kidney disease (HCC) documented in this encounter Care Teams Judicial Registrar Relationship Specialty Start Date End Date Matilde Mauricio DO 293 [place] [address] PCP - General Family Medicine 12/15/22 documented as of this encounter
--- OUTSIDE RECORDS SUMMARY | 2023-08-28 21:06 | External Medical Summary ---
Author Name Unknown Address Unknown Organization K09:[facility] [address] Laboratory Report Ordering Provider Test Date Status KERRIE ESPINOZA 08/18/2023 12:29:38 Final Observation Date Value Abnormality Reference (Units ) Status SYNC LEUKOCYTES IN BLOOD BY AUTOMATED COUNT 08/18/2023 12:29:38 6.78 4.00-10.80 (K/uL) Final Neutrophils/100 leukocytes in Blood by Manual count 08/18/2023 12:29:38 79.0 Above high normal 40.0-75.0 (%) Final Lymphocytes/100 leukocytes in Blood by Manual count 08/18/2023 12:29:38 10.0 Below low normal 18.0-42.0 (%) Final Monocytes/100 leukocytes in Blood by Manual count 08/18/2023 12:29:38 9.0 1.0-11.0 (%) Final Eosinophils/100 leukocytes in Blood by Manual count 08/18/2023 12:29:38 2.0 0.0-6.0 (%) Final Neutrophils [#/volume] in Blood by Manual count 08/18/2023 12:29:38 5.36 1.80-7.70 (K/uL) Final Lymphocytes [#/volume] in Blood by Manual count 08/18/2023 12:29:38 0.68 Below low normal 1.00-4.80 (K/uL) Final Monocytes [#/volume] in Blood by Manual count 08/18/2023 12:29:38 0.61 0.00-1.10 (K/uL) Final Eosinophils [#/volume] in Blood by Manual count 08/18/2023 12:29:38 0.14 0.00-0.70 (K/uL) Final Nucleated erythrocytes/100 leukocytes [Ratio] in Blood by Automated count 08/18/2023 12:29:38 Final Performing Location [facility] [address]
--- OUTSIDE RECORDS SUMMARY | 2023-08-28 21:06 | External Medical Summary | Summary of Care ---
Author Name Unknown Organization [facility] Address [address] [facility] [place] [address] Phone [phone] Care Team Providers Care Mailing Jogger Name Role Phone Matilde Mauricio Primary Care Provider [phone] Reason for Visit * Reason Comments Outpatient Testing Encounter Details Date Type Department Care Team (Late st Contact Info) Description 08/18/2023 12:40 PM EDT Laboratory Laboratory Scenery [facility] [address] [place] [phone] Park, Lab Scenery [address] [place] [address] Iron deficiency anemia, unspecified iron deficiency anemia [...] Major depressive disorder, recurrent, moderate 0 10/19/2016 senior living current use of systemic steroids 03/26 Pseudogout [...] mRNA, LNP-s, No Pre serve, 2-Dose Series ([employer]) 03/04/2021,06/30/2020,06/09/2020 COVID-19, LNP-s, No Preserve , Pool-sucrose, Ages 12+ (Pfizer) 12/07/2021 COVID-19, MRNA-LNP, 23-24, P F, 30 MCG/0.3 mL, 12 YRS AND ABOVE, IM ([employer]-Comirnat) 03/07/2023 Covid-19, Mrna, Lnp-s, Pf, B ivalent, 30 Mcg, IM, 12 yrs and above ([employer]) 04/12/2022 Pneumococcal Conjugate Vacc, 13 Valent (Prevnar) [...] Contact Info) Description 08/18/2023 1:30 PM EDT Immunization/Injecti on Hematology/Oncology Treatment, [place] 200 [facility] [place] [phone] Nurse, Med 4 [address] [place] [address] Arrived 08/25/2023 12:30 PM EDT Laboratory Laboratory [place] [address] [place] [phone] [place] [address] [address] [facility] [place] [address] 08/25/2023 1:00 PM EDT Immunization/Injecti on Hematology/Oncology Treatment, [address] [place] [phone] Nurse, Med 4 200 [facility] [place], [place] [address] 09/27/2023 10:30 AM EDT Office Visit Rheumatology [facility] [address] [facility] [place], [place] [address] Tommy Rodriguez PA-C [address] [facility] [place], [place] [address] 10/19/2023 11:20 AM EDT Office Visit Family Practice [address] [place] [address] 293 [facility], [place] [address] Matilde Mauricio DO 293 [place] [address] 10/27/2023 10:10 AM EDT Laboratory Laboratory [address], [place] [address] [place] [phone] [place], [address] [place] [address] 11/02/2023 11:30 AM EDT Office Visit Hematology/Oncology [facility] 200 [facility] [place], [place] [phone] Eryn Morris CRNP [address] [place] [address] [place] [address] 01/11/2024 4:00 PM EDT Cardiac Studies Cardiac Studies, [facility] 132 [facility] [place] [address] Pending Results Name Type Priority Associated Diagnoses Date /Time CBC WITH WBC DIFFERENTIAL Lab STAT Iron deficiency anemia, unspecified iron deficiency anemia type Anemia due to stage 3b chronic kidney disease (HCC) 08/18/2023 12:29 PM EDT CBC Lab STAT Iron deficiency anemia, unspecified iron deficiency anemia type Anemia due to stage 3b chronic kidney disease (HCC) 08/18/2023 12:29 PM EDT DIFFERENTIAL, AUTOMATED Lab STAT Iron deficiency anemia, unspecified iron deficiency anemia type Anemia due to stage 3b chronic kidney disease (HCC) 08/18/2023 12:29 PM EDT Scheduled Procedures Name Priority Associated [...] Additional history exists CKD PHOS USE SMARTSET 80038 12/14/202311/23, 01/05/2022, 05/08/2020, Additional history exists Influenza Vaccine (FLU shot) (Season Ended) 2023 01/30/2021, 01/16/2020, 01/10/2019, Additional history exists GFR 01/21/2024 07/21/2023, 04/24, 02/17/2023, Additional history exists Diabetic Eye Exam 03/10/2024 03/10/2023, , 02/16/2023, Additional history exists O2 ASSESSMENT COMPLETED IN PAST YEAR FOR COPD 07/20/2024 07/21/2023 CKD HGB USE SMARTSET 30251 08/10/202408/10, 08/11/2023, 08/04/2023, Additional history exists Lipid Panel 04/07/2028 04/07/2023, [...] (HCC) documented in this encounter Care Teams Mailing Jogger Relationship Specialty Start Date End Date Matilde Mauricio DO 293 [place] [address] PCP - General Family Medicine 12/15/22 documented as of this encounter
--- OUTSIDE RECORDS SUMMARY | 2023-08-28 21:06 | External Medical Summary | Summary of Care ---
Author Name Unknown Organization [facility] Address [address] [facility] [place] [address] Phone [phone] Care Team Providers Care Chief Information Security Officer Name Role Phone Matilde Mauricio Primary Care Provider [phone] Reason for Visit * Reason Comments Medication Administration Retacrit * Episode Based Medications (Routine) - Authorized Specialty Diagnoses / Procedures Referred By Fabian crockett Referred To Contact Diagnoses Chronic kidney disease, stage 3b (HCC) Anemia in chronic renal disease Procedures VA EPOETIN KAI, NON-ESRD VA INJ RETACRIT NON-ESRD USE Eryn Morris CRNP 400 [facility] [address] Anc Hem/Onc [place] DEPT CLOSED - 03/07/[address] [place] [address] Referral ID Status Reason Start Date Expiration Date V isits Requested Visits Authorized [id number] Authorized 06/30/2023 06/29/[phone] Encounter Details Date Type Department Care Team (Late st Contact Info) Description 07/21/2023 2:30 PM EDT Immunization/I njection Hematology/Oncology Treatment, [place] [address] [place] [address] Nurse, Med [address] [place] [address] Chronic kidney disease, stage 3b (HCC)* Allergies No known active allergiesdocumented as of this encounter (statuses as of 08/24/2023) Medications Medication Sig Dispensed Refills Start Date [...] on 06/30/2023 Modafinil 200 MG Oral Tablet (Provigil)Indicatio ns:Sleep [...] hemoglobin A1c goal of less than 7.0% ([facility]) Inject 30 units under the skin daily and increase as per MTM pharmacist with max TDD 45 units daily 45 mL 3 11/18/2022 Active Additional Information Patient taking differently: Pt reports he is currently taking 15 units Lantus in the morning., Reported on 06/30/2023 Spironolactone 25 MG Oral Tablet (Aldactone)Indicati ons:Pulmonary hypertension (HCC) TAKE ONE-HALF TABLET BY MOUTH EVERY MORNING 50 Tablet 1 12/07/2022 12/07/19 24 Active Dexcom G7 Sensor Use as directed. Via DME 0 12/16/2022 Active Torsemide 100 MG Oral Tablet (Demadex)Indication s:HTN, goal below 140/90 Take one-half Tablet by mouth in the morning. 90 Tablet 3 12/22/2022 Active Atorvastatin Calcium 40 MG Oral Tablet (Lipitor)Indication s:Dyslipidemia TAKE ONE TABLET BY MOUTH EVERY MORNING 100 Tablet 3 01/26/2023 01/26/20 24 Active Additional Information Patient taking differently: Reports he takes in the evening., Reported on 06/30/2023 Fluticasone Propionate 50 MCG/ACT Nasal Suspension (Flonase)Indication [...] MOUTH EVERY MORNING 100 Tablet 3 02/15/2023 02/15/20 24 Active Ozempic (2 MG/DOSE) 8 MG/3ML Subcutaneous Solution Pen-injector (Semaglutide (2 MG/DOSE)) INJECT 2 MG UNDER THE SKIN ONCE WEEKLY 9 mL 1 03/30/2023 03/29/20 24 Active Additional Information Patient taking differently: Taking 0.5 mg on Monday., Reported on 06/30/2023 Sertraline HCl 100 MG Oral Tablet (Zoloft)Indications [...] EVERY OTHER DAY 45 Tablet 3 06/05/2023 06/04/19 25 Active Pregabalin 100 MG Oral Capsule (Lyrica)Indications :Neuropathy,Bilater al leg pain Take 1 Capsule by mouth in the morning and 1 Capsule at noon and 1 Capsule before bedtime. 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 Fill date 07/15/2023 or later 120 Tablet 0 07/13/2023 08/09/19 24 Discontinu ed(Refill) documented as of this encounter (statuses as of 08/24/2023) Active Problems Problem Noted Date Diagnosed Date Protein-calorie malnutrition 03/08/2023 Anemia due to stage 3a chronic kidney disease Overview: Per CKD protocol Primary osteoarthritis of both knees 07/14/2022 Nonrheumatic aortic valve stenosis 06/07/2022 Hypertensive kidney disease with stage 3b chronic kidney disease 06/06/2022 COPD, group A, by GOLD 2017 classification 12/12 /2022 Overview: Per COPD GOLD Classification Iron deficiency [...] Major depressive disorder, recurrent, moderate 0 10/19/2016 [facility] current use of systemic steroids 03/26 Pseudogout of multiple joints 09/18/2014 DJD (degenerative joint disease) of knee 015 Pseudogout of knee 03/14/2014 Chronic narcotic use 12/23/2010 Type 2 diabetes mellitus wit h hemoglobin A1c goal of less than 7.0% 11/05/2009 Overview: ICD-10 update of inactive term documented as of this encounter (statuses as of 08/24/2023) Resolved Problems Problem Noted Date Diagnosed Date [...] as of this encounter (statuses as of 08/24/2023) Immunizations Name Administration Dates Next Due COVID-19 mRNA, LNP-s, No Pre serve, 2-Dose Series ([employer]) 03/04/2021,06/30/2020,06/09/2020 COVID-19, LNP-s, No Preserve , Pool-sucrose, Ages 12+ (Pfizer) 12/07/2021 COVID-19, MRNA-LNP, 23-24, P F, 30 MCG/0.3 mL, 12 YRS AND ABOVE, IM ([employer]-Comirnaty) 03/07/2023 Covid-19, Mrna, Lnp-s, Pf, B ivalent, [...] Sign Reading Time Taken Comments Blood Pressure 124/72 07/21/2023 12:58 PM EDT Pulse - - Temperature - - Respiratory Rate - - Oxygen Saturation - - Inhaled Oxygen Concentration - - Weight - - Height - - Body Mass Index - - documented in this encounter Nursing Notes * Sommer Marquez LPN - 07/21/2023 2:45 PM EDT Pt arrived for Retacrit injection. Hgb 10.8. Administered in JASS. Pt tolerated well. BP WNL. To return in one week. Discharged in stable condition. documented in this encounter Plan of Treatment Upcoming Encounters Date Type Department Care Team (Late st Contact Info) Description 08/25/2023 12:30 PM EDT Laboratory Laboratory [facility] [place] [phone] [facility] [place] [address] 08/25/2023 1:00 PM EDT Immunization/Injecti on Hematology/Oncology Treatment, [place] [address] [place] [phone] Nurse, Med 200 [facility] [place] [address] 09/27/2023 10:30 AM EDT Office Visit Rheumatology [place] [phone] [facility] [place], [place] [address] Tommy Rodriguez PA-C [address] [employer] [place], [place] [address] 10/19/2023 11:20 AM EDT Office Visit Family Practice [address] [place] [address] 293 [facility], [place] [address] Matilde Mauricio DO 293 [facility], [place] [address] 10/27/2023 10:10 AM EDT Laboratory Laboratory [address], [place] [address] [place] [address] [place]ate [place] [address] [place] [address] 11/02/2023 11:30 AM EDT Office Visit Hematology/Oncology [facility] [address] [place] [address] Eryn Morris CRNP 400 [facility] [place] [address] 01/11/2024 4:00 PM EDT Cardiac Studies Cardiac Studies, [facility] [address] [place] [address] Scheduled Procedures Name Priority [...] Additional history exists CKD PHOS USE SMARTSET 95348 12/14/202311/23, 01/05/2022, 05/08/2020, Additional history exists Influenza Vaccine (FLU shot) (Season Ended) 2023 01/30/2021, 01/16/2020, 01/10/2019, Additional history exists GFR 01/21/2024 07/21/2023, 04/24, 02/17/2023, Additional history exists Diabetic Eye Exam 03/10/2024 03/10/2023, , 02/16/2023, Additional history exists O2 ASSESSMENT COMPLETED IN PAST YEAR FOR COPD 07/20/2024 07/21/2023 CKD HGB USE SMARTSET 59978 08/17/202408/17, 08/18/2023, 08/11/2023, Additional history exists Lipid [...] Date Dose Rate Site Epoetin Kai-epbx (Retacrit) 47917 UNIT/ML inj 40,000 Units 40,000 Units, Subcutaneous, ONCE, On Mon07/21/23 at 1330, For 1 dose Given 07/21/2023 1:03 PM EDT 40,000 Units Arm Right Upper documented in this encounter Care Teams Chief Information Security Officer Relationship Specialty Start Date End Date Matilde Mauricio DO 293 [place] [address] PCP - General Family Medicine 12/15/22 documented as of this encounter
--- OUTSIDE RECORDS SUMMARY | 2023-08-28 21:07 | External Medical Summary | Summary of Care ---
Author Name Unknown Organization [facility] Address [address] [facility] [place] [address] Phone [phone] Care Team Providers Care Technology Intern Name Role Phone Matilde Mauricio Primary Care Provider Reason for Visit * Reason Onset Date Comments Appointment 08/11/2023 Pedro Encounter Details Date Type Department Care Team (Late st Contact Info) Description 08/11/2023 Telephone Hematology/Oncology [facility] 200 [facility] [place] [address] Eryn Morris CRNP 400 [place] [address] Appointment (Pedro) Allergies No known active allergiesdocumented as of this encounter (statuses as of 08/15/2023) Medications Medication Sig Dispensed Refills Start Date [...] ONCE WEEKLY 9 mL 1 03/30/2023 03/29/20 Active Additional Information Patient taking differently: Taking [...] SR)Indications:Freq uent PVCs,NSVT (nonsustained ventricular tachycardia) ([facility]) TAKE ONE TABLET BY MOUTH EVERY OTHER [...] as of this encounter (statuses as of 08/15/2023) Active Problems Problem Noted Date Diagnosed Date [...] Major depressive disorder, recurrent, moderate 0 10/19/2016 [facility] current use of systemic steroids 03/26 Pseudogout of multiple joints 09/18/2014 DJD (degenerative joint disease) of knee 015 Pseudogout of knee 03/14/2014 Chronic narcotic use 12/23/2010 Type 2 diabetes mellitus wit h hemoglobin A1c goal of less than 7.0% 11/05/2009 Overview: ICD-10 update of inactive term documented as of this encounter (statuses as of 08/15/2023) Resolved Problems Problem Noted Date Diagnosed Date [...] as of this encounter (statuses as of 08/15/2023) Immunizations Name Administration Dates Next Due COVID-19 mRNA, LNP-s, No Pre serve, 2-Dose Series ([facility]) 03/04/2021,06/30/2020,06/09/2020 COVID-19, LNP-s, No Preserve , Pool-sucrose, Ages 12+ ([facility]) 12/07/2021 COVID-19, MRNA-LNP, 23-24, P F, 30 MCG/0.3 mL, 12 YRS AND ABOVE, IM ([employer]-Comirnaty) 03/07/2023 Covid-19, Mrna, Lnp-s, Pf, B ivalent, 30 Mcg, IM, 12 yrs and above ([facility]) 04/12/2022 Pneumococcal Conjugate Vacc, 13 Valent (Prevnar) [...] encounter Miscellaneous Notes * Telephone Encounter - Danika Calle OSA - 08/15/2023 8:49 AM EDT Called x 3 Letter sent * Telephone Encounter - Danika Calle OSA - 08/14/2023 10:51 AM EDT My g sent as well * Telephone Encounter - Danika Calle OSA - 08/14/2023 10:19 AM EDT Called x2 left message * Telephone Encounter - Danika Calle OSA - 08/11/2023 2:27 PM EDT Left message * Telephone Encounter - Antony Núñez RN - 08/11/2023 1:26 PM EDT Scheduling- Patient needs scheduled still for 2 hour "Pedro 04/25" (Darrius). Please DO NOT scheduled on same day as Retacrit. Thank you. documented in this encounter Plan of Treatment Upcoming Encounters Date Type Department Care Team (Late st Contact Info) Description 08/18/2023 12:40 PM EDT Laboratory Laboratory [facility] [place] [address] [place] [phone] [facility] [place] [address] [facility], [place] [address] 08/18/2023 1:30 PM EDT Immunization/Injecti on Hematology/Oncology Treatment, [place] 200 [facility] [place], [place] [address] Nurse, Med 4 [address] [place] [address] 08/25/2023 12:30 PM EDT Laboratory Laboratory [facility] [place] [address] [place] [address] [facility] [place] [address] [place] [address] 08/25/2023 1:00 PM EDT Immunization/Injecti on Hematology/Oncology Treatment, [place] 200 [facility] [place], [place] [address] Nurse, Med 4 [address] [place] [address] 09/27/2023 10:30 AM EDT Office Visit Rheumatology [facility] [address] [facility] [place], [place] [address] Tommy Rodriguez PA-C [address] [facility] [place] [address] 10/19/2023 11:20 AM EDT Office Visit Family Practice [address] [place] [address] 293 [facility], [place] [address] Matilde Mauricio DO 293 [facility], [place] [address] 10/27/2023 10:10 AM EDT Laboratory Laboratory [address], [place] [address] [place] [address] [place] [facility] [address] [place] [address] 11/02/2023 11:30 AM EDT Office Visit Hematology/Oncology [facility] 200 [facility] [place], [place] [phone] Eryn Morris CRNP 400 [facility] [place] [address] 01/11/2024 4:00 PM EDT Cardiac Studies Cardiac Studies, [facility] 132 [facility] [place] [address] Scheduled Procedures Name Priority [...] Additional history exists CKD PHOS USE SMARTSET 63560 12/14/202311/23, 01/05/2022, 05/08/2020, Additional history exists Influenza Vaccine (FLU shot) (Season Ended) 2023 01/30/2021, 01/16/2020, 01/10/2019, Additional history exists GFR 01/21/2024 07/21/2023, 04/24, 02/17/2023, Additional history exists Diabetic Eye Exam 03/10/2024 03/10/2023, , 02/16/2023, Additional history exists O2 ASSESSMENT COMPLETED IN PAST YEAR FOR COPD 07/20/2024 07/21/2023 CKD HGB USE SMARTSET 31857 08/10/202408/10, 08/11/2023, 08/04/2023, Additional history exists Lipid [...] filedocumented as of this encounter Care Teams Technology Intern Relationship Specialty Start Date End Date Matilde Mauricio DO [address] [place] [address] PCP - General Family Medicine 12/15/22 documented as of this encounter
--- OUTSIDE RECORDS SUMMARY | 2023-08-28 21:07 | External Medical Summary | Summary of Care ---
Author Name Unknown Organization [facility] Address [address] [facility] [place] [address] Phone [phone] Care Team Providers Care Dredge Deckhand Name Role Phone Matilde Mauricio Primary Care Provider [phone] Reason for Visit * Reason Onset Date Comments Appointment 08/11/2023 Pedro Encounter Details Date Type Department Care Team (Late st Contact Info) Description 08/11/2023 Telephone Hematology/Oncology [facility] 200 [facility] [place] [address] Eryn Morris CRNP 400 [facility] [address] Appointment (Pedro) Allergies No known active allergiesdocumented as of this encounter (statuses as of 08/11/2023) Medications Medication Sig Dispensed Refills Start Date [...] 07/15/2023 or later 120 Tablet 0 07/13/2023 Active documented as of this encounter (statuses as of 08/11/2023) Active Problems Problem Noted Date Diagnosed Date [...] Major depressive disorder, recurrent, moderate 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 03/26 Pseudogout of multiple joints 09/18/2014 DJD (degenerative joint disease) of knee 015 Pseudogout of knee 03/14/2014 Chronic narcotic use 12/23/2010 Type 2 diabetes mellitus wit h hemoglobin A1c goal of less than 7.0% 11/05/2009 Overview: ICD-10 update of inactive term documented as of this encounter (statuses as of 08/11/2023) Resolved Problems Problem Noted Date Diagnosed Date [...] as of this encounter (statuses as of 08/11/2023) Immunizations Name Administration Dates Next Due COVID-19 mRNA, LNP-s, No Pre serve, 2-Dose Series (Adly) 03/04/2021,06/30/2020,06/09/2020 COVID-19, LNP-s, No Preserve , Pool-sucrose, Ages 12+ (Adly) 12/07/2021 COVID-19, MRNA-LNP, 23-24, P F, 30 MCG/0.3 mL, 12 YRS AND ABOVE, IM (Snaptracs-Comirnat) 03/07/2023 Covid-19, Mrna, Lnp-s, Pf, B ivalent, 30 Mcg, IM, 12 yrs and above (Adly) 04/12/2022 Pneumococcal Conjugate Vacc, 13 Valent (Prevnar) [...] Description 08/18/2023 12:40 PM EDT Laboratory Laboratory [address] [place], [place] [phone] [address] [place], [place] [address] 08/18/2023 1:30 PM EDT Immunization/Injecti on Hematology/Oncology Treatment, [place] 200 [facility], [place] [phone] Nurse, Med 4 [address] [place], [place] [address] 08/25/2023 12:30 PM EDT Laboratory Laboratory [address] [place] [address] [place], [place] [phone] [address] [place] [address] [place], [place] [address] 08/25/2023 1:00 PM EDT Immunization/Injecti on Hematology/Oncology Treatment, [place] 200 [facility], [place] [phone] Nurse, Med 4 [address] [place], [place] [address] 09/27/2023 10:30 AM EDT Office Visit Rheumatology [facility] [address] [facility] [place], [place] [address] Tommy Rodriguez PA-C [address] [facility] [place], [place] [address] 10/19/2023 11:20 AM EDT Office Visit Family Practice [address] [place] [address] 293 [facility], [place] [address] Matilde Mauricio DO 293 [place] [address] 10/27/2023 10:10 AM EDT Laboratory Laboratory [address] [place], [place] [address] [place] [phone] [place] [address] 11/02/2023 11:30 AM EDT Office Visit Hematology/Oncology [facility] [address] [place] [address] Eryn Morris, BEREN[place] [address] [place] [place] [address] 01/11/2024 4:00 PM EDT Cardiac Studies Cardiac Studies, [facility] [address] [place] [...] Additional history exists CKD PHOS USE SMARTSET 07690 12/14/202311/23, 01/05/2022, 05/08/2020, Additional history exists Influenza Vaccine (FLU shot) (Season Ended) 2023 01/30/2021, 01/16/2020, 01/10/2019, Additional history exists GFR 01/21/2024 07/21/2023, 04/24, 02/17/2023, Additional history exists Diabetic Eye Exam 03/10/2024 03/10/2023, , 02/16/2023, Additional history exists O2 ASSESSMENT COMPLETED IN PAST YEAR FOR COPD 07/20/2024 07/21/2023 CKD HGB USE SMARTSET 88302 08/10/202408/10, 08/11/2023, 08/04/2023, Additional history exists Lipid [...] filedocumented as of this encounter Care Teams Dredge Deckhand Relationship Specialty Start Date End Date Matilde Mauricio DO [address] [place] [address] PCP - General Family Medicine 12/15/22 documented as of this encounter
--- OUTSIDE RECORDS SUMMARY | 2023-08-28 21:07 | External Medical Summary | Summary of Care ---
Author Name Unknown Organization [facility] Address [address] [facility] [place] [address] Phone [phone] Care Team Providers Care Toe Sewer Name Role Phone Matilde Mauricio Primary Care Provider [phone] Reason for Visit * Reason Onset Date Comments Medication Refill 08/09/2023 Encounter Details Date Type Department Care Team (Late st Contact Info) Description 08/09/2023 Refill Rheumatology [place] [address] [place] [address] Arian Preston MD [facility] [employer] [facility] [place] [address] Primary osteoarthritis of both knees; Pseudogout of [...] or later 120 Tablet 0 08/11/2023 Active HYDROcodone-Acetami nophen 10-325 MG Oral TabletIndications:P [...] depressive disorder, recurrent, moderate 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 03/26 Pseudogout [...] mRNA, LNP-s, No Pre serve, 2-Dose Series (SiphonLabs) 03/04/2021,06/30/2020,06/09/2020 COVID-19, LNP-s, No Preserve , Pool-sucrose, Ages 12+ (SiphonLabs) 12/07/2021 COVID-19, MRNA-LNP, 23-24, P F, 30 MCG/0.3 mL, 12 YRS AND ABOVE, IM (Not iT-Comirnat) 03/07/2023 Covid-19, Mrna, Lnp-s, Pf, B ivalent, 30 Mcg, IM, 12 yrs and above (SiphonLabs) 04/12/2022 Pneumococcal Conjugate Vacc, 13 Valent (Prevnar) [...] encounter Miscellaneous Notes * Telephone Encounter - Arian Preston MD - 08/11/2023 3:37 PM EDTSigned Prescriptions: Disp Refills HYDROcodone-Acetaminophen 10-325 MG Oral T*120 Ta*0 Sig: Take 1 Tablet by mouth every 6 hours as needed for Pain, Mild. Fill date 08/14/2023 or laterAuthorizing Provider: ARIAN PRESTON * Telephone Encounter - Arian Preston MD - 08/11/2023 3:36 PM EDT I have reviewed the patients controlled substance dispensing history in the Prescription Drug Monitoring Program in compliance with the [facility] regulations before prescribing a controlled [...] in Results Review. * Telephone Encounter - Anirudh Benson [facility] - 08/11/2023 12:38 PM EDTPending Prescriptions: Disp Refills HYDROcodone-Acetaminophen 10-325 MG Oral T*120 Ta*0 Sig: Take 1 Tablet by mouth every 6 hours as needed for Pain, Mild. Fill date 07/15/2023 or later * Telephone Encounter - Anirudh Benson RPh - 08/11/2023 12:36 PM EDT [facility] is currently not authorized to approve refills for the pended medication(s) per refill protocol. Please approve if appropriate. Thanks, Anil Benson, PharmD Clinical Pharmacist [facility] ([facility]) ([facility]ly [facility]) [phone] 08/11/2023 12:37 PM documented in this encounter Plan of Treatment Upcoming Encounters Date Type Department Care Team (Late st Contact Info) Description 08/18/2023 12:40 PM EDT Laboratory Laboratory [address] [place] [address] [place], [place] [phone] [address] [place], [place] [address] 08/18/2023 1:30 PM EDT Immunization/Injecti on Hematology/Oncology Treatment, [address] [phone] Nurse, Med 4 [address] [place], [place] [address] 08/25/2023 12:30 PM EDT Laboratory Laboratory [place] [address] [place] [phone] [place] [address] [place], [place] [address] 08/25/2023 1:00 PM EDT Immunization/Injecti on Hematology/Oncology Treatment, [address] [place], [place] [phone] Nurse, Med 4 200 [facility] [place] [address] 09/27/2023 10:30 AM EDT Office Visit Rheumatology [facility] 2520 [facility] [place], [place] [address] Tommy Rodriguez PA-C [address] [facility] [place] [address] 10/19/2023 11:20 AM EDT Office Visit Family Practice [address] [place] [address] 293 [facility], [place] [phone] Matilde Mauricio DO 293 [facility], [place] [address] 10/27/2023 10:10 AM EDT Laboratory Laboratory [address] [place] [phone] [address] [facility] [place] [address] 11/02/2023 11:30 AM EDT Office Visit Hematology/Oncology [facility] 200 [facility] [place], [place] [phone] Eryn Morris CRNP [address] [place] [address] [place] [address] 01/11/2024 4:00 PM EDT Cardiac Studies Cardiac Studies, [facility] 132 [facility] [place] [address] Scheduled Procedures Name [...] Additional history exists CKD PHOS USE SMARTSET 34076 12/14/202311/23, 01/05/2022, 05/08/2020, Additional history exists Influenza Vaccine (FLU shot) (Season Ended) 2023 01/30/2021, 01/16/2020, 01/10/2019, Additional history exists GFR 01/21/2024 07/21/2023, 04/24, 02/17/2023, Additional history exists Diabetic Eye Exam 03/10/2024 03/10/2023, , 02/16/2023, Additional history exists O2 ASSESSMENT COMPLETED IN PAST YEAR FOR COPD 07/20/2024 07/21/2023 CKD HGB USE SMARTSET 27001 08/10/202408/10, 08/11/2023, 08/04/2023, Additional history exists Lipid [...] metabolism documented in this encounter Care Teams Toe Sewer Relationship Specialty Start Date End Date Matilde Mauricio DO 293 [place] [address] PCP - General Family Medicine 12/15/22 documented as of this encounter
--- OUTSIDE RECORDS SUMMARY | 2023-08-28 21:07 | External Medical Summary | Summary of Care ---
Author Name Unknown Organization [facility] Address [address] [facility] [place] [address] Phone [phone] Care Team Providers Care Glazier Apprentice Name Role Phone Matilde Mauricio Primary Care Provider Reason for Visit * Reason Onset Date Comments Appointment 08/11/2023 Pedro Encounter Details Date Type Department Care Team (Late st Contact Info) Description 08/11/2023 Telephone Hematology/Oncology [facility] 200 [facility] [place] [address] Eryn Morris CRNP 400 [place] [address] Appointment (Pedro) Allergies No known active allergiesdocumented as of this encounter (statuses as of 08/14/2023) Medications Medication Sig Dispensed Refills Start Date [...] (Isoptin SR)Indications:Freq uent PVCs,NSVT (nonsustained ventricular tachycardia) ([facility]) TAKE ONE TABLET BY MOUTH EVERY OTHER [...] as of this encounter (statuses as of 08/14/2023) Active Problems Problem Noted Date Diagnosed Date [...] as of this encounter (statuses as of 08/14/2023) Resolved Problems Problem Noted Date Diagnosed Date [...] as of this encounter (statuses as of 08/14/2023) Immunizations Name Administration Dates Next Due COVID-19 mRNA, LNP-s, No Pre serve, 2-Dose Series (Cebix) 03/04/2021,06/30/2020,06/09/2020 COVID-19, LNP-s, No Preserve , Pool-sucrose, Ages 12+ (Cebix) 12/07/2021 COVID-19, MRNA-LNP, 23-24, P F, 30 MCG/0.3 mL, 12 YRS AND ABOVE, IM (Tunepresto-Comirnaty) 03/07/2023 Covid-19, Mrna, Lnp-s, Pf, B ivalent, 30 Mcg, IM, 12 yrs and above (Cebix) 04/12/2022 Pneumococcal Conjugate Vacc, 13 Valent (Prevnar) [...] Description 08/18/2023 12:40 PM EDT Laboratory Laboratory [facility] [address] [place] [phone] [facility] [address] [place] [address] 08/18/2023 1:30 PM EDT Immunization/Injecti on Hematology/Oncology Treatment, [place] 200 [facility] [phone] Nurse, Med 4 [address] [place] [address] 08/25/2023 12:30 PM EDT Laboratory Laboratory [facility] [place] [address] [place] [address] [facility] [address] [place], [place] [address] 08/25/2023 1:00 PM EDT Immunization/Injecti on Hematology/Oncology Treatment, [place] 200 [facility], [place] [phone] Nurse, Med 4 [address] [place] [address] 09/27/2023 10:30 AM EDT Office Visit Rheumatology [facility] [address] [place], [place] [address] Tommy Rodriguez PANora [address] [place], [place] [address] 10/19/2023 11:20 AM EDT Office Visit Family Practice [address] [place] [address] 293 [facility], [place] [address] Matilde Mauricio, DO 293 [facility] [place] [address] 10/27/2023 10:10 AM EDT Laboratory Laboratory [address] [place] [phone] [place] [address] [place] [address] 11/02/2023 11:30 AM EDT Office Visit Hematology/Oncology [facility] [place] [address] [place] [address] Eryn Morris CRNP 400 [facility] [place] [address] 01/11/2024 4:00 PM EDT Cardiac Studies Cardiac Studies, [facility] 132 [facility] [place] [address] Scheduled Procedures Name Priority [...] Additional history exists CKD PHOS USE SMARTSET 84391 12/14/202311/23, 01/05/2022, 05/08/2020, Additional history exists Influenza Vaccine (FLU shot) (Season Ended) 2023 01/30/2021, 01/16/2020, 01/10/2019, Additional history exists GFR 01/21/2024 07/21/2023, 04/24, 02/17/2023, Additional history exists Diabetic Eye Exam 03/10/2024 03/10/2023, , 02/16/2023, Additional history exists O2 ASSESSMENT COMPLETED IN PAST YEAR FOR COPD 07/20/2024 07/21/2023 CKD HGB USE SMARTSET 39048 08/10/202408/10, 08/11/2023, 08/04/2023, Additional history exists Lipid [...] filedocumented as of this encounter Care Teams Glazier Apprentice Relationship Specialty Start Date End Date Matilde Mauricio DO [address] [place] [address] PCP - General Family Medicine 12/15/22 documented as of this encounter
--- OUTSIDE RECORDS SUMMARY | 2023-08-28 21:07 | External Medical Summary | Summary of Care ---
Author Name Unknown Organization [facility] Address [address] [facility] [place] [address] Phone [phone] Care Team Providers Care Websphere Portal Developer Name Role Phone Matilde Mauricio Primary Care Provider [phone] Reason for Visit * Reason Onset Date Comments Appointment 08/11/2023 Pedro Encounter Details Date Type Department Care Team (Late st Contact Info) Description 08/11/2023 Telephone Hematology/Oncology [facility] 200 [facility] [place] [address] Eryn Morris CRNP 400 [place] [address] Appointment (Pedro) Allergies No known active [...] (Isoptin SR)Indications:Freq uent PVCs,NSVT (nonsustained ventricular tachycardia) ([facility]) TAKE ONE TABLET BY MOUTH EVERY OTHER [...] mRNA, LNP-s, No Pre serve, 2-Dose Series (Intellution) 03/04/2021,06/30/2020,06/09/2020 COVID-19, LNP-s, No Preserve , Pool-sucrose, Ages 12+ (Intellution) 12/07/2021 COVID-19, MRNA-LNP, 23-24, P F, 30 MCG/0.3 mL, 12 YRS AND ABOVE, IM (Orad-Comirnaty) 03/07/2023 Covid-19, Mrna, Lnp-s, Pf, B ivalent, 30 Mcg, IM, 12 yrs and above (Intellution) 04/12/2022 Pneumococcal Conjugate Vacc, 13 Valent (Prevnar) [...] Patient needs scheduled still for 2 hour "Venofer 04/25" (Darrius). Please DO NOT scheduled on same day as Retacrit. Thank you. documented in this encounter Plan of Treatment Upcoming Encounters Date Type Department Care Team (Late st Contact Info) Description 08/18/2023 12:40 PM EDT [facility] [place] 200 [facility] [place] [phone] [place] [place] [address] [place] [address] 08/18/2023 1:30 PM EDT Immunization/Injecti on Hematology/Oncology Treatment, [place] [address] [facility] [address] [address] [address] Nurse, Med [address] [place] [address] 08/25/2023 12:30 PM EDT Laboratory Laboratory [facility] [place] [address] [place] [phone] [facility] [place] [address] [place] [address] 08/25/2023 1:00 PM EDT Immunization/Injecti on Hematology/Oncology Treatment, [place] 200 [place] [phone] Nurse, Med [address] [place] [address] 09/27/2023 10:30 AM EDT Office Visit Rheumatology [facility] [place] [address] [place] [address] Tommy Rodriguez PA-C [address] [place] [address] 10/19/2023 11:20 AM EDT Office Visit Family Practice 65 [facility] [place] 293 [facility], [place] [phone] Matilde Mauricio DO 293 [place] [address] 10/27/2023 10:10 AM EDT Laboratory Laboratory [address] [place] [address] [place] [phone] [place], [address] [place] [address] 11/02/2023 11:30 AM EDT Office Visit Hematology/Oncology [facility] 200 [facility], [place] [phone] Eryn Morris CRNP 400 [facility] [place] [address] 01/11/2024 4:00 PM EDT Cardiac Studies Cardiac Studies, [facility] 132 [facility] [place] [address] Scheduled Procedures Name Priority Associated Diagnoses Date/Ti [...] Additional history exists CKD PHOS USE SMARTSET 93266 12/14/202311/23, 01/05/2022, 05/08/2020, Additional history exists Influenza Vaccine (FLU shot) (Season Ended) 2023 01/30/2021, 01/16/2020, 01/10/2019, Additional history exists GFR 01/21/2024 07/21/2023, 04/24, 02/17/2023, Additional history exists Diabetic Eye Exam 03/10/2024 03/10/2023, , 02/16/2023, Additional history exists O2 ASSESSMENT COMPLETED IN PAST YEAR FOR COPD 07/20/2024 07/21/2023 CKD HGB USE SMARTSET 11448 08/10/202408/10, 08/11/2023, 08/04/2023, Additional history exists Lipid [...] filedocumented as of this encounter Care Teams Websphere Portal Developer Relationship Specialty Start Date End Date Matilde Mauricio DO [address] [facility] [place] [address] PCP - General Family Medicine 12/15/22 documented as of this encounter
--- OUTSIDE RECORDS SUMMARY | 2023-08-28 21:07 | External Medical Summary | Summary of Care ---
Author Name Unknown Organization [facility] Address [address] [facility] [place] [address] Phone [phone] Care Team Providers Care Supply Chain Development Manager Name Role Phone Matilde Mauricio Primary Care Provider + [phone] Reason for Visit * Reason Comments Medication Administration Retacrit * Episode Based Medications (Routine) - Authorized Specialty Diagnoses / Procedures Referred By Fabian crockett Referred To Contact Diagnoses Chronic kidney disease, stage 3b (HCC) Anemia in chronic renal disease Procedures [place] EPOETIN KAI, NON-ESRD [place] INJ RETACRIT NON-ESRD USE Eryn Morris [facility] [address] [facility] [address] Anc Hem/Onc [place] DEPT CLOSED - 03/07/[address] [place] [address] Referral ID Status Reason Start Date Expiration Date V isits Requested Visits Authorized [id number] Authorized 06/30/2023 06/29/2024 999 [id number] Encounter Details Date Type Department Care Team (Late st Contact Info) Description 08/11/2023 1:00 PM EDT Immunization/I njection Hematology/Oncology Treatment, [place] [address] [place] [address] Nurse, Med [address] [place] [address] [address] Iron deficiency anemia, unspecified iron deficiency anemia type*; Chronic kidney disease, stage 3b ([facility]) Allergies No known active allergiesdocumented as [...] hemoglobin A1c goal of less than 7.0% ([facility]) Inject 30 units under the skin [...] MOUTH EVERY MORNING 50 Tablet 1 12/07/2022 Active Dexcom G7 Sensor Use as directed. 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 03/26 [...] mRNA, LNP-s, No Pre serve, 2-Dose Series ([employer]) 03/04/2021,06/30/2020,06/09/2020 COVID-19, LNP-s, No Preserve , Pool-sucrose, Ages 12+ ([employer]) 12/07/2021 COVID-19, MRNA-LNP, 23-24, P F, 30 MCG/0.3 mL, 12 YRS AND ABOVE, IM ([employer]-Comirnaty) 03/07/2023 Covid-19, Mrna, Lnp-s, Pf, B ivalent, 30 Mcg, IM, 12 yrs and above ([employer]) 04/12/2022 Pneumococcal Conjugate Vacc, 13 Valent (Prevnar) [...] Sign Reading Time Taken Comments Blood Pressure 116/71 08/11/2023 12:53 PM EDT Pulse - - Temperature - - Respiratory Rate - - Oxygen Saturation - - Inhaled Oxygen Concentration - - Weight - - Height - - Body Mass Index - - documented in this encounter Nursing Notes * Sommer Marquez LPN - 08/11/2023 1:06 PM EDT Pt arrived for Retacrit injection. Hgb 10.3. Administered in JASS. Pt tolerated well. To return in 1week. Discharged in stable condition. documented in this encounter Plan of Treatment Upcoming Encounters Date Type Department Care Team (Late st Contact Info) Description 08/18/2023 12:40 PM EDT Laboratory Laboratory [facility] [place] [address] [phone] [place] [address] [facility] [place] [address] 08/18/2023 1:30 PM EDT Immunization/Injecti on Hematology/Oncology Treatment, [place] [address] [place] [address] Nurse, Med [address] [place] [address] [address] 08/25/2023 12:30 PM EDT Laboratory [facility] [place] [address] [place] [address] [facility] [address] [facility] [place], [place] [address] 08/25/2023 1:00 PM EDT Immunization/Injecti on Hematology/Oncology Treatment, [place] [address] [place] [address] [address] Nurse, Med 4 [address] [place], [place] [address] 09/27/2023 10:30 AM EDT Office Visit Rheumatology [address] [place] [address] Tommy Rodriguez PA-C [address] [facility] [place], [place] [address] 10/19/2023 11:20 AM EDT Office Visit Family Practice [address] [facility] 293 [place] [address] Matilde Mauricio DO 293 [facility] [place] [address] 10/27/2023 10:10 AM EDT Laboratory [address], [place] [address] [place] [phone] [place], [address] [place] [address] 11/02/2023 11:30 AM EDT Office Visit Hematology/Oncology [facility] 200 [facility] [place], [place] [phone] Eryn Morris CRNP [address] [facility] [place] [id number] 01/11/2024 4:00 PM EDT Cardiac Studies Card[facility] Studies, [facility] [address] Scheduled Procedures Name Priority Associated Diagnoses [...] Additional history exists CKD PHOS USE SMARTSET 24021 12/14/202311/23, 01/05/2022, 05/08/2020, Additional history exists Influenza Vaccine (FLU shot) (Season Ended) 2023 01/30/2021, 01/16/2020, 01/10/2019, Additional history exists GFR 01/21/2024 07/21/2023, 04/24, 02/17/2023, Additional history exists Diabetic Eye Exam 03/10/2024 03/10/2023, , 02/16/2023, Additional history exists O2 ASSESSMENT COMPLETED IN PAST YEAR FOR COPD 07/20/2024 07/21/2023 CKD HGB USE SMARTSET 91082 08/10/202408/10, 08/11/2023, 08/04/2023, Additional history exists Lipid [...] anemia, unspecified iron deficiency anemia type- Primary Chronic kidney disease, stage 3b (HCC) documented in this encounter Administered Medications Active Administered Medications - up to 3 most recent administrations Medication Order MAR Action Action Date Dose Rate Site diphenhydrAMINE (Benadryl) inj 50 mg 50 mg, IV Push, ONCE PRN Other, Hypersensitivity Reaction, Starting on Mon08/11/23 at 1249, Until 08/12/23 at 1248, For 24 hours EPINEPHrine 1 MG/ML inj 0.3 mg 0.3 mg, Intramuscular, ONCE PRN Other, Hypersensitivity Reaction or Anaphylaxis, Starting on Mon08/11/23 at 1249, Until 08/12/23 at 1248, For 24 hours hEParin 100 UNIT/ML Lock Flush inj 500 Units 500 Units (5 mL), IV Lock, PRN Other, IV Flush, Starting on Mon08/11/23 at 1249, Until 08/12/23 at 1248, For 24 hours, Do not flush if lock, PICC, or central line not in place; IV infusing or unable to flush. Hydrocortisone Sod Suc (PF) (Solu-Cortef) inj 100 mg 100 mg, IV Push, ONCE PRN Other, Hypersensitivity Reaction, Starting on Mon08/11/23 at 1249, Until 08/12/23 at 1248, For 24 hours Iron Sucrose (Venofer) 300 mg in NSS 250 mL ivpb 300 mg, IV Piggyback, ONCE, 1 dose, On Mon08/11/23 at 1430, Administer over 90 Minutes oxygen GAS Inhalation, OXYGEN, First dose on Mon08/11/23 at 1600, Until Discontinued, Device/Managed by: Low [...] Push, PRN Other, IV Flush, Starting on Mon08/11/23 at 1249, Until 08/12/23 at 1248, For 24 hours, Do not flush if lock, PICC, or central line not in place; IV infusing or unable to flush. Inactive Administered Medications - up to 3 most recent administrations Medication Order MAR Action Action Date Dose Rate Site Epoetin Kai-epbx (Retacrit) 97042 UNIT/ML inj 40,000 Units 40,000 Units, Subcutaneous, ONCE, On Mon08/11/23 at 1330, For 1 dose Given 08/11/2023 1:00 PM EDT 40,000 Units Arm Right Upper documented in this encounter Care Teams Supply Chain Development Manager Relationship Specialty Start Date End Date Matilde Mauricio DO [address] [place] [address] PCP - General Family Medicine 12/15/22 documented as of this encounter
--- OUTSIDE RECORDS SUMMARY | 2023-08-28 21:07 | External Medical Summary | Summary of Care ---
Author Name Unknown Organization [facility] Address [address] [facility] [place] [address] Phone [phone] Care Team Providers Care Boat And Plant Utility Supervisor Name Role Phone Matilde Mauricio Primary Care Provider + [phone] Reason for Visit * Reason Comments Medication Administration Retacrit * Episode Based Medications (Routine) - Authorized Specialty Diagnoses / Procedures Referred By Fabian crockett Referred To Contact Diagnoses Chronic kidney disease, stage 3b (HCC) Anemia in chronic renal disease Procedures [place] EPOETIN KAI, NON-ESRD [place] INJ RETACRIT NON-ESRD USE Eryn Morris CRNP [address] [facility] [address] Anc Hem/Onc [place] DEPT CLOSED - 03/07/[address] [place] [address] Referral ID Status Reason Start Date Expiration Date V isits Requested Visits Authorized [id number] Authorized 06/30/2023 06/29/2024 999 999 Encounter Details Date Type Department Care Team (Late st Contact Info) Description 08/11/2023 1:00 PM EDT Immunization/I njection Hematology/Oncology Treatment, [place] [address] [place] [address] Nurse, Med [address] [place] [address] [address] Iron deficiency anemia, unspecified iron deficiency anemia type*; Chronic kidney disease, stage 3b ([facility]) Allergies No known active allergiesdocumented as of [...] A1c goal of less than 7.0% ([facility]) Inject 30 units under the skin daily [...] Major depressive disorder, recurrent, moderate 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 documented in this encounter Miscellaneous Notes * Addendum Note - Mragarita Gomes RPh - 08/11/2023 1:53 PM EDTAddended by: MARGARITA GOMES on: 08/11/2023 01:53 PM Modules accepted: Orders documented in this encounter Plan of Treatment Upcoming Encounters Date Type Department Care Team (Late st Contact Info) Description 08/18/2023 12:40 PM EDT Laboratory Laboratory [place] [address] [place] [phone] [place] [address] [place] [address] 08/18/2023 1:30 PM EDT Immunization/Injecti on Hematology/Oncology Treatment, [place] [address] [place] [phone] Nurse, Med 4 [address] [place] [address] 08/25/2023 12:30 PM EDT Laboratory Laboratory [facility] [place] [address] [place] [phone] [place] [address] [place] [address] 08/25/2023 1:00 PM EDT Immunization/Injecti on Hematology/Oncology Treatment, [place] [address] [place], [place] [phone] Nurse, Med 4 200 [facility] [place] [address] 09/27/2023 10:30 AM EDT Office Visit Rheumatology [facility] [address] [facility] [place] [address] Tommy Rodriguez PA-C [address] [facility] [place] [address] 10/19/2023 11:20 AM EDT Office Visit Family Practice [address] [place] [address] [address] [facility] [phone] Matilde Mauricio DO 293 [facility], [place] [address] 10/27/2023 10:10 AM EDT [facility] [address] [place] [phone] [place] [address] 11/02/2023 11:30 AM EDT Office Visit Hematology/Oncology [facility] 200 [facility] [place] [phone] Eryn Morris CRNP [address] [place] [address] [place] [address] 01/11/2024 4:00 PM EDT Cardiac Studies Cardiac Studies, [facility] 132 [facility] [place] [address] Scheduled Procedures Name [...] Additional history exists CKD PHOS USE SMARTSET 64605 12/14/202311/23, 01/05/2022, 05/08/2020, Additional history exists Influenza Vaccine (FLU shot) (Season Ended) 2023 01/30/2021, 01/16/2020, 01/10/2019, Additional history exists GFR 01/21/2024 07/21/2023, 04/24, 02/17/2023, Additional history exists Diabetic Eye Exam 03/10/2024 03/10/2023, , 02/16/2023, Additional history exists O2 ASSESSMENT COMPLETED IN PAST YEAR FOR COPD 07/20/2024 07/21/2023 CKD HGB USE SMARTSET 71207 08/10/202408/10, 08/11/2023, 08/04/2023, Additional history exists Lipid [...] MAR Action Action Date Dose Rate Site oxygen GAS Inhalation, OXYGEN, First dose on [...] is greater than or equal to 93% Inactive Administered Medications - up to 3 most recent administrations Medication Order MAR Action Action Date Dose Rate Site Epoetin Kai-epbx (Retacrit) 97107 UNIT/ML inj 40,000 Units 40,000 Units, Subcutaneous, ONCE, On Mon08/11/23 at 1330, For 1 dose Given 08/11/2023 1:00 PM EDT 40,000 Units Arm Right Upper documented in this encounter Care Teams Boat And Plant Utility Supervisor Relationship Specialty Start Date End Date Matilde Mauricio DO 293 [place] [address] PCP - General Family Medicine 12/15/22 documented as of this encounter
--- OUTSIDE RECORDS SUMMARY | 2023-08-28 21:08 | External Medical Summary | Summary of Care ---
Author Name Unknown Organization [facility] Address [address] [facility] [place] [address] Phone [phone] Care Team Providers Care Allopathic Doctor Name Role Phone Matilde Mauricio Primary Care Provider + [phone] Reason for Visit * Reason Comments Medication Administration Retacrit * Episode Based Medications (Routine) - Authorized Specialty Diagnoses / Procedures Referred By Fabian crockett Referred To Contact Diagnoses Chronic kidney disease, stage 3b (HCC) Anemia in chronic renal disease Procedures [place] EPOETIN KAI, NON-ESRD [place] INJ RETACRIT NON-ESRD USE Eryn Morris CRNP [facility] [address] Anc Hem/Onc [place] DEPT CLOSED - 03/07/[address] [place] [address] Referral ID Status Reason Start Date Expiration Date V isits Requested Visits Authorized [id number] Authorized 06/30/2023 06/29/[phone] Encounter Details Date Type Department Care Team (Late st Contact Info) Description 08/11/2023 1:00 PM EDT Immunization/I njection Hematology/Oncology Treatment, [place] [address] [place] [address] Nurse, Med [address] [place] [address] [address] Iron deficiency anemia, unspecified iron deficiency anemia type*; Chronic kidney disease, stage 3b ([facility]) Allergies No known active allergiesdocumented as of [...] hemoglobin A1c goal of less than 7.0% ([facility]) Inject 30 units under the [...] Major depressive disorder, recurrent, moderate 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 03/26 Pseudogout [...] mRNA, LNP-s, No Pre serve, 2-Dose Series ([employer]) 03/04/2021,06/30/2020,06/09/2020 COVID-19, LNP-s, No Preserve , Pool-sucrose, Ages 12+ ([employer]) 12/07/2021 COVID-19, MRNA-LNP, 23-24, P F, 30 MCG/0.3 mL, 12 YRS AND ABOVE, IM ([employer]-Comirnaty) 03/07/2023 Covid-19, Mrna, Lnp-s, Pf, B ivalent, 30 Mcg, IM, 12 yrs and above ([employer]) 04/12/2022 Pneumococcal Conjugate Vacc, 13 Valent (Prevnar) [...] Description 08/18/2023 12:40 PM EDT Laboratory Laboratory [facility] [place] [address] [phone] [place] [address] [facility] [place] [address] 08/18/2023 1:30 PM EDT Immunization/Injecti on Hematology/Oncology Treatment, [place] [address] [place] [address] Nurse, Med [address] [place] [address] 08/25/2023 12:30 PM EDT Laboratory Laboratory [facility] [place] [address] [place] [address] [address] [facility] [address] [facility] [place], [place] [address] 08/25/2023 1:00 PM EDT Immunization/Injecti on Hematology/Oncology Treatment, [place] [address] [place] [address] [address] Nurse, Med 4 [address] [place], [place] [address] 09/27/2023 10:30 AM EDT Office Visit Rheumatology [address] [place] [address] Tommy Rodriguez PA-C [address] [facility] [place], [place] [address] 10/19/2023 11:20 AM EDT Office Visit Family Practice [facility] 293 [place] [address] Matilde Mauricio DO 293 [place] [address] 10/27/2023 10:10 AM EDT Laboratory Laboratory [address], [place] [address] [place] [phone] [place], Lab [address] [place] [address] 11/02/2023 11:30 AM EDT Office Visit Hematology/Oncology [facility] 200 [facility] [place], [place] [phone] Eryn Morris CRNP [address] [facility] [place] [phone] 01/11/2024 4:00 PM EDT Cardiac Studies Cardiac Studies, [facility] [address] [facility] [address] Scheduled Procedures Name Priority Associated Diagnoses [...] Additional history exists CKD PHOS USE SMARTSET 57904 12/14/202311/23, 01/05/2022, 05/08/2020, Additional history exists Influenza Vaccine (FLU shot) (Season Ended) 2023 01/30/2021, 01/16/2020, 01/10/2019, Additional history exists GFR 01/21/2024 07/21/2023, 04/24, 02/17/2023, Additional history exists Diabetic Eye Exam 03/10/2024 03/10/2023, , 02/16/2023, Additional history exists O2 ASSESSMENT COMPLETED IN PAST YEAR FOR COPD 07/20/2024 07/21/2023 CKD HGB USE SMARTSET 63140 08/10/202408/10, 08/11/2023, 08/04/2023, Additional history exists Lipid [...] Mon08/11/23 at 1430, Administer over 90 Minutes NSS infusion 500 mL, Intravenous, at 50 mL/hr, CONTINUOUS, Starting on Mon08/11/23 at 1400, Until Mon08/11/23 at 2359 oxygen GAS Inhalation, OXYGEN, First dose on [...] Date Dose Rate Site Epoetin Kai-epbx (Retacrit) 89350 UNIT/ML inj 40,000 Units 40,000 Units, Subcutaneous, ONCE, On Mon08/11/23 at 1330, For 1 dose Given 08/11/2023 1:00 PM EDT 40,000 Units Arm Right Upper documented in this encounter Care Teams Allopathic Doctor Relationship Specialty Start Date End Date Matilde Mauricio DO 293 [place] [address] PCP - General Family Medicine 12/15/22 documented as of this encounter
--- OUTSIDE RECORDS SUMMARY | 2023-08-28 21:08 | External Medical Summary ---
Author Name Unknown Address Unknown Organization [facility] [place] [address] Laboratory Report Ordering Provider Test Date Status KERRIE ESPINOZA 08/11/2023 12:22:42 Final Observation Date Value Abnormality Reference (Units ) Status Nucleated erythrocytes/100 leukocytes [Ratio] in Blood by Automated count 08/11/2023 12:22:42 Final Performing Location [facility] [place] [address]
--- OUTSIDE RECORDS SUMMARY | 2023-08-28 21:08 | External Medical Summary | Summary of Care ---
Author Name Unknown Organization [facility] Address [address] [facility] [place] [address] Phone [phone] Care Team Providers Care Perfumer Name Role Phone Matilde Mauricio Primary Care Provider + [phone] Reason for Visit * Reason Onset Date Comments Test Results Lab 07/31/2023 Encounter Details Date Type Department Care Team (Late st Contact Info) Description 07/31/2023 Telephone Hematology/Oncology [facility] [place] [address] Eryn Morris CRNP 400 [place] [address] Test Results Lab Allergies No known active allergiesdocumented as of [...] mRNA, LNP-s, No Pre serve, 2-Dose Series ([employer])) 03/04/2021,06/30/2020,06/09/2020 COVID-19, LNP-s, No Preserve , Pool-sucrose, Ages 12+ ([employer] ([employer])) 12/07/2021 COVID-19, MRNA-LNP, 23-24, P F, 30 MCG/0.3 mL, 12 YRS AND ABOVE, IM ([employer]-Comirnaty) 03/07/2023 Covid-19, Mrna, Lnp-s, Pf, B ivalent, 30 Mcg, IM, 12 yrs and above ([employer] ([employer])) 04/12/2022 Pneumococcal Conjugate Vacc, 13 Valent (Prevnar) [...] encounter Miscellaneous Notes * Telephone Encounter - Perla Buck LPN - 08/11/2023 8:52 AM EDT Noted. * Telephone Encounter - Danika Leyva OSA - 07/31/2023 12:39 PM EDT Spoke to pt and he stated that he will need to coordinate with the person who gives him rides and then he would call back to schedule * Telephone Encounter - Debbie Greer RN - 07/31/2023 9:54 AM EDT Scheduling: please call patient to schedule 2 hour appt "Pedro 04/25" (Eryn). This CANNOT be on same day as retacrit (insurance will not cover if both are given same day)- will need to be scheduled different days. Thanks! Patient will need a 2nd dose of venofer 2 weeks later. * Telephone Encounter - Perla Buck LPN - 07/31/2023 9:46 AM EDT Order received for Venofer. [place] plan built and routed to provider. No precert required. Awaiting provider signature prior to scheduling patient. Patient is requesting his Venofer infusion in the AM on , Wednesdays, or . Patient states he must be "done and out" by 3:00 pm these days. * Telephone Encounter - Perla Buck LPN - 07/31/2023 9:30 AM EDT Called and spoke with patient, informed patient of the detailed lab message below. He is agreeable to the plan for venofer infusions. Patient verbalized understanding and denies any further questions. Patient is requesting his Venofer infusion in the AM on , Wednesdays, or . Patient states he must be "done and out" by 3:00 pm these days. * Telephone Encounter - Eryn Morris CRNP - 07/31/2023 9:05 AM EDT Results for orders placed or performed in visit on 07/28/23 CBC Result Value Ref Range WBC 5.34 4.00 - 10.80 K/uL RBC 4.33 4.50 - 5.25 M/uL HGB 10.5 (L) 14.0 - 16.8 g/dL HCT 35.3 (L) 40.0 - 48.4 % MCV 81.5 82.0 - 99.5 fL MCH 24.2 27.0 - 34.0 pg MCHC 29.7 32.0 - 36.0 g/dL RDW 20.7 11.5 - 15.5 % PLT 326 140 - 400 K/uL MPV 8.0 6.6 - 11.1 fL DIFFERENTIAL, TECHNOLOGIST REVIEW Result Value Ref Range WBC 5.34 4.00 - 10.80 K/uL Neutrophils % 76.0 (H) 40.0 - 75.0 % Lymphocytes % 12.0 (L) 18.0 - 42.0 % Monocytes % 12.0 (H) 1.0 - 11.0 % Absolute Neutrophils 4.06 1.80 - 7.70 K/uL Absolute Lymphocytes 0.64 (L) 1.00 - 4.80 K/uL Absolute Monocytes 0.64 0.00 - 1.10 K/uL nRBCs *Note: Due to a large number of results and/or encounters for the requested time period, some results have not been displayed. A complete set of results can be found in Results Review. Component Latest Ref Rng 07/21/2023 Soluble Tranferrin Receptor 0.76 - 1.76 mg/L 3.33 (H) Component Latest Ref Rng 07/21/2023 Iron 45 - 176 ug/dL 14 (L) Iron Binding Capacity 250 - 425 ug/dL 201 (L) Transferrin Saturation Percent 15 - 55 % 7 (L) Microcytic indices have returned. Iron studies suspicious for ongoing iron deficiency. Would like to administer another two doses of IV Venofer 300 mg 14 days apart. Order placed. documented in this encounter Plan of Treatment Upcoming Encounters Date Type Department Care Team (Late st Contact Info) Description 08/11/2023 12:20 PM EDT Laboratory Laboratory [facility] [place] [address] [place] [address] Cate [place] [facility] [address] [place] [address] [address] 08/11/2023 1:00 PM EDT Immunization/Injecti on Hematology/Oncology Treatment, [place] [address] [place] [address] Nurse, Med 4 [address] [place], [place] [address] 08/18/2023 12:40 PM EDT Laboratory Laboratory [facility] [address] [place], [place] [phone] Park, Lab Scenery [address] [place], [place] [address] 08/18/2023 1:30 PM EDT Immunization/Injecti on Hematology/Oncology Treatment, [place] 200 [facility], [place] [phone] Nurse, Med 4 [address] [place], [place] [address] 08/25/2023 12:30 PM EDT Laboratory Laboratory [facility] [place] [address] [place], [place] [phone] [facility] Lab Scenery [address] [place], [place] [address] 08/25/2023 1:00 PM EDT Immunization/Injecti on Hematology/Oncology Treatment, [place] 200 [facility], [place] [phone] Nurse, Med 4 200 [facility] [place], [place] [address] 09/27/2023 10:30 AM EDT Office Visit Rheumatology [facility] [address] [facility] [place], [place] [address] Tommy Rodriguez PA-C [address] [employer] [place], [place] [address] 10/19/2023 11:20 AM EDT Office Visit Family Practice [address] [place] [address] 293 [facility], [place] [address] Matilde Mauricio DO 293 [place] [address] 10/27/2023 10:10 AM EDT Laboratory Laboratory [address], [place] [address] [place] [phone] [place] [address] 11/02/2023 11:30 AM EDT Office Visit Hematology/Oncology [facility] [address] [place] [address] Eryn Morris CRNP 400 [facility] [place] [address] 01/11/2024 4:00 PM EDT Cardiac Studies Cardiac Studies, [facility] [address] [facility] [place] [address] Scheduled Procedures Name Priority [...] Additional history exists CKD PHOS USE SMARTSET 25413 12/14/202311/23, 01/05/2022, 05/08/2020, Additional history exists Influenza Vaccine (FLU shot) (Season Ended) 2023 01/30/2021, 01/16/2020, 01/10/2019, Additional history exists GFR 01/21/2024 07/21/2023, 04/24, 02/17/2023, Additional history exists Diabetic Eye Exam 03/10/2024 03/10/2023, , 02/16/2023, Additional history exists O2 ASSESSMENT COMPLETED IN PAST YEAR FOR COPD 07/20/2024 07/21/2023 CKD HGB USE SMARTSET 30952 08/03/202408/03, 08/04/2023, 07/28/2023, Additional history exists Lipid Panel 04/07/2028 04/07/2023, [...] anemia, unspecified iron deficiency anemia type- Primary documented in this encounter Care Teams Perfumer Relationship Specialty Start Date End Date Matilde Mauricio DO [address] [place] [address] PCP - General Family Medicine 12/15/22 documented as of this encounter
--- OUTSIDE RECORDS SUMMARY | 2023-08-28 21:08 | External Medical Summary | Summary of Care ---
Author Name Unknown Organization [facility] Address [address] [facility] [place] [address] Phone [phone] Care Team Providers Care Marketing Officer Name Role Phone Matilde Mauricio Primary Care Provider Reason for Visit * Reason Comments Outpatient Testing Encounter Details Date Type Department Care Team (Late st Contact Info) Description 08/11/2023 12:20 PM EDT Laboratory Laboratory [facility] [address] [place] [phone] Park, Lab Scenery [address] [place] [address] Iron deficiency anemia, unspecified iron deficiency anemia [...] Major depressive disorder, recurrent, moderate 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 03/26 [...] mRNA, LNP-s, No Pre serve, 2-Dose Series ([employer]) 03/04/2021,06/30/2020,06/09/2020 COVID-19, LNP-s, No Preserve , Pool-sucrose, Ages 12+ (Pfizer) 12/07/2021 COVID-19, MRNA-LNP, 23-24, P F, 30 MCG/0.3 mL, 12 YRS AND ABOVE, IM ([employer]-Comirnat) 03/07/2023 Covid-19, Mrna, Lnp-s, Pf, B ivalent, 30 Mcg, IM, 12 yrs and above ([employer]) 04/12/2022 Pneumococcal Conjugate Vacc, 13 Valent (Prevnar) [...] Contact Info) Description 08/11/2023 1:00 PM EDT Immunization/Injecti on Hematology/Oncology Treatment, [place] 200 [facility] [place] [phone] Nurse, Med [address] [place] [address] Arrived 08/18/2023 12:40 PM EDT Laboratory Laboratory [place] [address] [place] [phone] Cate [place] [address] [address] [facility] [place] [address] 08/18/2023 1:30 PM EDT Immunization/Injecti on Hematology/Oncology Treatment, [address] [place] [phone] Nurse, Med 4 [address] [place], [place] [address] 08/25/2023 12:30 PM EDT Laboratory Laboratory [facility] [place] [address] [place], [place] [phone] Cate [place] [facility] [address] [place], [place] [address] 08/25/2023 1:00 PM EDT Immunization/Injecti on Hematology/Oncology Treatment, [place] [address] [place] [address] Nurse, Med 4 200 [facility] [place], [place] [address] 09/27/2023 10:30 AM EDT Office Visit Rheumatology [facility], [place] [address] Tommy Rodriguez, PA-Cristina [address] [employer] [facility], [place] [address] 10/19/2023 11:20 AM EDT Office Visit Family Practice [address] [place] [address] 293 [place] [address] Matilde Mauricio DO 293 [place] [address] 10/27/2023 10:10 AM EDT Laboratory Laboratory [facility] [place] [address] [place] [phone] Cate [address] [place] [address] 11/02/2023 11:30 AM EDT Office Visit Hematology/Oncology [facility] [address] [place], [place] [phone] Eryn Morris CRNP [address] [place] [address] 01/11/2024 4:00 PM EDT Cardiac Studies Cardiac Studies, [facility] 132 [facility] [place] [address] Pending Results Name Type Priority Associated Diagnoses Date /Time CBC WITH WBC DIFFERENTIAL Lab STAT Iron deficiency anemia, unspecified iron deficiency anemia type Anemia due to stage 3b chronic kidney disease (HCC) 08/11/2023 12:22 PM EDT CBC Lab STAT Iron deficiency anemia, unspecified iron deficiency anemia type Anemia due to stage 3b chronic kidney disease (HCC) 08/11/2023 12:22 PM EDT DIFFERENTIAL, AUTOMATED Lab STAT Iron deficiency anemia, unspecified iron deficiency anemia type Anemia due to stage 3b chronic kidney disease (HCC) 08/11/2023 12:22 PM EDT Scheduled Procedures Name Priority Associated [...] Additional history exists CKD PHOS USE SMARTSET 74043 12/14/202311/23, 01/05/2022, 05/08/2020, Additional history exists Influenza Vaccine (FLU shot) (Season Ended) 2023 01/30/2021, 01/16/2020, 01/10/2019, Additional history exists GFR 01/21/2024 07/21/2023, 04/24, 02/17/2023, Additional history exists Diabetic Eye Exam 03/10/2024 03/10/2023, , 02/16/2023, Additional history exists O2 ASSESSMENT COMPLETED IN PAST YEAR FOR COPD 07/20/2024 07/21/2023 CKD HGB USE SMARTSET 45252 08/03/202408/03, 08/04/2023, 07/28/2023, Additional history exists Lipid [...] (HCC) documented in this encounter Care Teams Marketing Officer Relationship Specialty Start Date End Date Matilde Mauricio DO 293 [address] [address] PCP - General Family Medicine 12/15/22 documented as of this encounter
--- OUTSIDE RECORDS SUMMARY | 2023-08-28 21:08 | External Medical Summary | Summary of Care ---
Author Name Unknown Organization [facility] Address [address] [facility] [place] [address] Phone [phone] Care Team Providers Care Trace Evidence Technician Name Role Phone Matilde Mauricio Primary Care Provider [phone] Reason for Visit * Reason Onset Date Comments Appointment 08/11/2023 Pedro Encounter Details Date Type Department Care Team (Late st Contact Info) Description 08/11/2023 Telephone Hematology/Oncology [facility] 200 [facility] [place] [address] Eryn Morris CRNP 400 [facility] [place] [address] Appointment (Pedro) Allergies No known active [...] Major depressive disorder, recurrent, 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 03/26 [...] mRNA, LNP-s, No Pre serve, 2-Dose Series ([employer]) 03/04/2021,06/30/2020,06/09/2020 COVID-19, LNP-s, No Preserve , Pool-sucrose, Ages 12+ ([employer]) 12/07/2021 COVID-19, MRNA-LNP, 23-24, P F, 30 MCG/0.3 mL, 12 YRS AND ABOVE, IM ([employer]-Comirnat) 03/07/2023 Covid-19, Mrna, Lnp-s, Pf, B ivalent, 30 Mcg, IM, 12 yrs and above ([employer]) 04/12/2022 Pneumococcal Conjugate Vacc, 13 Valent (Prevnar) [...] encounter Miscellaneous Notes * Telephone Encounter - Antony Núñez RN - 08/11/2023 1:26 PM EDT Scheduling- Patient needs scheduled still for 2 hour "Ariel04/25" (Darrius). Please DO NOT scheduled on same day as Retacrit. Thank you. documented in this encounter Plan of Treatment Upcoming Encounters Date Type Department Care Team (Late st Contact Info) Description 08/18/2023 12:40 PM EDT Laboratory Laboratory [facility] Reardon [address] [place] [phone] Cate Madrid [address] [place] [address] 08/18/2023 1:30 PM EDT Immunization/Injecti on Hematology/Oncology Treatment, [place] 200 [facility] [place] [phone] Nurse, Med 4 [address] [place] [address] 08/25/2023 12:30 PM EDT Laboratory Laboratory [facility] [address] [place] [phone] Park [facility] [address] [place], [place] [address] 08/25/2023 1:00 PM EDT Immunization/Injecti on Hematology/Oncology Treatment, [place] 200 [facility], [place] [phone] Nurse, Med 4 [address] [place] [address] 09/27/2023 10:30 AM EDT Office Visit Rheumatology [facility] [address] [employer] [place], [place] [address] Tommy Rodriguez PA-C [address] [employer] [place], [place] [address] 10/19/2023 11:20 AM EDT Office Visit Family Practice [address] [place] [address] 293 [place] [address] Matilde Mauricio DO 293 [facility], [place] [address] 10/27/2023 10:10 AM EDT Laboratory Laboratory [place] [place] [phone] [address] [place] [address] 11/02/2023 11:30 AM EDT Office Visit Hematology/Oncology [facility] [address] [place] [address] Eryn Morris CRNP [address] [place] [address] 01/11/2024 4:00 PM EDT Cardiac Studies Cardiac Studies, [facility] [address] [place] [address] Scheduled Procedures Name Priority Associated Diagnoses Date/Ti [...] Additional history exists CKD PHOS USE SMARTSET 21555 12/14/202311/23, 01/05/2022, 05/08/2020, Additional history exists Influenza Vaccine (FLU shot) (Season Ended) 2023 01/30/2021, 01/16/2020, 01/10/2019, Additional history exists GFR 01/21/2024 07/21/2023, 04/24, 02/17/2023, Additional history exists Diabetic Eye Exam 03/10/2024 03/10/2023, , 02/16/2023, Additional history exists O2 ASSESSMENT COMPLETED IN PAST YEAR FOR COPD 07/20/2024 07/21/2023 CKD HGB USE SMARTSET 62259 08/10/202408/10, 08/11/2023, 08/04/2023, Additional history exists Lipid [...] filedocumented as of this encounter Care Teams Trace Evidence Technician Relationship Specialty Start Date End Date Matilde Mauricio DO [address] [place] [address] PCP - General Family Medicine 12/15/22 documented as of this encounter
--- OUTSIDE RECORDS SUMMARY | 2023-08-28 21:08 | External Medical Summary ---
Author Name Unknown Address Unknown Organization [facility] [place] [address] Laboratory Report Ordering Provider Test Date Status KERRIE ESPINOZA 08/11/2023 12:22:42 Final Observation Date Value Abnormality Reference (Units ) Status WBC, Total 08/11/2023 12:22:42 8.04 4.00-10.8 0 (K/uL) Final RBC 08/11/2023 12:22:42 4.30 4.50-5.25 (M/uL) Final Hemoglobin 08/11/2023 12:22:42 10.3 Below low normal 14 .0-16.8 (g/dL) Final HCT 08/11/2023 12:22:42 34.8 Below low normal 40. 0-48.4 (%) Final MCV 08/11/2023 12:22:42 80.9 82.0-99.5 (fL) Final MCH 08/11/2023 12:22:42 24.0 27.0-34.0 (pg) Final MCHC 08/11/2023 12:22:42 29.6 32.0-36.0 (g/dL) Final RDW 08/11/2023 12:22:42 19.3 11.5-15.5 (%) Final Platelets 08/11/2023 12:22:42 444 Above high normal 14 0-400 (K/uL) Final MPV 08/11/2023 12:22:42 8.0 6.6-11.1 ( fL) Final Performing Location [facility] [place] [address]
--- OUTSIDE RECORDS SUMMARY | 2023-08-28 21:08 | External Medical Summary | Summary of Care ---
Author Name Unknown Organization [facility] Address [address] [facility] [address] Phone [phone] Care Team Providers Care Complaints Coordinator Name Role Phone Matilde Mauricio DO Primary Care Provider [phone] Encounter Details Date Type Department Care Team (Late st Contact Info) Description 08/11/2023 Orders Only Hematology/Oncology [facility] [place] 200 [facility] [place] [place] [address] Eryn Morris CRNP 400 [place] [address] Allergies No known active allergiesdocumented [...] Major depressive disorder, recurrent, moderate 0 10/19/2016 FDC current use of systemic steroids 03/26 Pseudogout [...] MCG/0.3 mL, 12 YRS AND ABOVE, IM ([facility]) 03/07/2023 Covid-19, Mrna, Lnp-s, Pf, B ivalent, 30 Mcg, IM, 12 yrs and above ([employer]) 04/12/2022 Pneumococcal Conjugate Vacc, 13 Valent (Prevnar) [...] Description 08/18/2023 12:40 PM EDT Laboratory Laboratory [facility] [place] [address] [place] [address] [phone] [place] [address] 08/18/2023 1:30 PM EDT Immunization/Injecti on Hematology/Oncology Treatment, [place] [address] [place] [phone] Nurse, Med [address] [place] [address] 08/25/2023 12:30 PM EDT Laboratory Laboratory [facility] [place] [address] [place] [address] [phone] Cate Madrid [address] [place] [address] 08/25/2023 1:00 PM EDT Immunization/Injecti on Hematology/Oncology Treatment, [place] 200 [facility] [place] [address] Nurse, Med 200 [facility] [place] [address] 09/27/2023 10:30 AM EDT Office Visit Rheumatology [facility] 25[address] [facility] [place], [place] [address] Tommy Rodriguez PA-C [address] [facility] [facility] [place] [address] 10/19/2023 11:20 AM EDT Office Visit Family Practice [address] [place] [address] 293 [facility], [place] [address] Matilde Mauricio DO 293 [facility], [place] [address] 10/27/2023 10:10 AM EDT Laboratory Laboratory [address], [place] [address] [facility] [place] [phone] [facility] [place] [place] [address] 11/02/2023 11:30 AM EDT Office Visit Hematology/Oncology [facility] 200 [facility] [place], [place] [phone] Eryn Morris CRNP [address] [place] [address] 01/11/2024 4:00 PM EDT Cardiac Studies Cardiac Studies, [facility] 132 [facility] [place] [address] Scheduled Procedures Name [...] Additional history exists CKD PHOS USE SMARTSET 71741 12/14/202311/23, 01/05/2022, 05/08/2020, Additional history exists Influenza Vaccine (FLU shot) (Season Ended) 2023 01/30/2021, 01/16/2020, 01/10/2019, Additional history exists GFR 01/21/2024 07/21/2023, 04/24, 02/17/2023, Additional history exists Diabetic Eye Exam 03/10/2024 03/10/2023, , 02/16/2023, Additional history exists O2 ASSESSMENT COMPLETED IN PAST YEAR FOR COPD 07/20/2024 07/21/2023 CKD HGB USE SMARTSET 64206 08/10/202408/10, 08/11/2023, 08/04/2023, Additional history exists Lipid [...] filedocumented as of this encounter Care Teams Complaints Coordinator Relationship Specialty Start Date End Date Matilde Mauricio DO [address] [facility] [address] PCP - General Family Medicine 12/15/22 documented as of this encounter
--- OUTSIDE RECORDS SUMMARY | 2023-08-28 21:08 | External Medical Summary ---
Author Name Unknown Address Unknown Organization [facility] [place] [address] Laboratory Report Ordering Provider Test Date Status KERRIE ESPINOZA 08/11/2023 12:22:42 Final Observation Date Value Abnormality Reference (Units ) Status SYNC LEUKOCYTES IN BLOOD BY AUTOMATED COUNT 08/11/2023 12:22:42 8.04 4.00-10.80 (K/uL) Final Segs 08/11/2023 12:22:42 76.9 Above high normal 40.0-75.0 (%) Final Lymphs % 08/11/2023 12:22:42 10.6 Below low normal 18.0-42.0 (%) Final Monos 08/11/2023 12:22:42 11.1 Above high normal 1.0-11.0 (%) Final Eosinophils 08/11/2023 12:22:42 1.0 0.0-6.0 (%) Final Basos 08/11/2023 12:22:42 0.4 0.0-2.0 (%) Final Absolute Segs 08/11/2023 12:22:42 6.19 1.80-7.70 (K/uL) Final Lymphs, absolute 08/11/2023 12:22:42 0.85 Below low normal 1.00-4.80 (K/ul) Final Monos, Abs 08/11/2023 12:22:42 0.89 0.00-1.10 (K/uL) Final Eos, Abs 08/11/2023 12:22:42 0.08 0.00-0.70 (K/uL) Final Basos, Abs 08/11/2023 12:22:42 0.03 0.00-0.20 (K/uL) Final Performing Location [facility] [place] [address]
--- OUTSIDE RECORDS SUMMARY | 2023-08-28 21:09 | External Medical Summary ---
Author Name Unknown Address Unknown Organization [facility] [place] [address] Laboratory Report Ordering Provider Test Date Status KERRIE ESPINOZA 08/04/2023 12:10:49 Final Observation Date Value Abnormality Reference (Units ) Status SYNC LEUKOCYTES IN BLOOD BY AUTOMATED COUNT 08/04/2023 12:10:49 7.79 4.00-10.80 (K/uL) Final Neutrophils/100 leukocytes in Blood by Manual count 08/04/2023 12:10:49 81.0 Above high normal 40.0-75.0 (%) Final Lymphocytes/100 leukocytes in Blood by Manual count 08/04/2023 12:10:49 9.0 Below low normal 18.0-42.0 (%) Final Monocytes/100 leukocytes in Blood by Manual count 08/04/2023 12:10:49 9.0 1.0-11.0 (%) Final Eosinophils/100 leukocytes in Blood by Manual count 08/04/2023 12:10:49 1.0 0.0-6.0 (%) Final Neutrophils [#/volume] in Blood by Manual count 08/04/2023 12:10:49 6.31 1.80-7.70 (K/uL) Final Lymphocytes [#/volume] in Blood by Manual count 08/04/2023 12:10:49 0.70 Below low normal 1.00-4.80 (K/uL) Final Monocytes [#/volume] in Blood by Manual count 08/04/2023 12:10:49 0.70 0.00-1.10 (K/uL) Final Eosinophils [#/volume] in Blood by Manual count 08/04/2023 12:10:49 0.08 0.00-0.70 (K/uL) Final Nucleated erythrocytes/100 leukocytes [Ratio] in Blood by Automated count 08/04/2023 12:10:49 Final Performing Location [facility] [place] [address]
--- OUTSIDE RECORDS SUMMARY | 2023-08-28 21:09 | External Medical Summary | Summary of Care ---
Author Name Unknown Organization [facility] Address [address] [facility] [place] [address] Phone [phone] Care Team Providers Care Insole Lip Turner Name Role Phone Matilde Mauricio Primary Care Provider + [phone] Reason for Visit * Reason Comments Medication Administration Retacrit * Episode Based Medications (Routine) - Authorized Specialty Diagnoses / Procedures Referred By Fabian crockett Referred To Contact Diagnoses Chronic kidney disease, stage 3b (HCC) Anemia in chronic renal disease Procedures MO EPOETIN KAI, NON-ESRD MO INJ RETACRIT NON-ESRD USE Eryn Morris CRNP [address] [facility] [address] Anc Hem/Onc [place] DEPT CLOSED - 03/07/[address] [place] [address] [address] Referral ID Status Reason Start Date Expiration Date V isits Requested Visits Authorized [id number] Authorized 06/30/2023 06/29/[phone] Encounter Details Date Type Department Care Team (Late st Contact Info) Description 08/04/2023 1:00 PM EDT Immunization/I njection Hematology/Oncology Treatment, [place] [address] [place] [address] Nurse, Med [address] [place] [address] Iron deficiency anemia, unspecified iron deficiency anemia type*; Chronic kidney disease, stage 3b ([facility]) Allergies No known active allergiesdocumented as of this encounter (statuses as of 08/04/2023) Medications Medication Sig Dispensed Refills Start Date [...] hemoglobin A1c goal of less than 7.0% ([facility]) Inject 30 units under the [...] as of this encounter (statuses as of 08/04/2023) Active Problems Problem Noted Date Diagnosed Date [...] as of this encounter (statuses as of 08/04/2023) Resolved Problems Problem Noted Date Diagnosed Date [...] as of this encounter (statuses as of 08/04/2023) Immunizations Name Administration Dates Next Due COVID-19 mRNA, LNP-s, No Pre serve, 2-Dose Series ([employer]) 03/04/2021,06/30/2020,06/09/2020 COVID-19, LNP-s, No Preserve , Pool-sucrose, Ages 12+ ([employer]) 12/07/2021 COVID-19, MRNA-LNP, 23-24, P F, 30 MCG/0.3 mL, 12 YRS AND ABOVE, IM (RABT-Comirnaty) 03/07/2023 Covid-19, Mrna, Lnp-s, Pf, B ivalent, 30 Mcg, IM, 12 yrs and above ([employer]) 04/12/2022 Pneumococcal Conjugate Vacc, 13 Valent (Prevnar) [...] Sign Reading Time Taken Comments Blood Pressure 132/70 08/04/2023 12:52 PM EDT Pulse - - Temperature - - Respiratory Rate - - Oxygen Saturation - - Inhaled Oxygen Concentration - - Weight - - Height - - Body Mass Index - - documented in this encounter Nursing Notes * Sommer Marquez LPN - 08/04/2023 1:19 PM EDT Pt arrived for Retacrit injection. Hgb 10.3. BP WNL. Administered in JASS. Pt tolerated well. To return in one week. Discharged in stable condition. documented in this encounter Plan of Treatment Upcoming Encounters Date Type Department Care Team (Late st Contact Info) Description 08/11/2023 12:20 PM EDT Laboratory Laboratory [facility] [place] [address] [place] [address] [phone] [place] [address] [place] [address] [address] 08/11/2023 1:00 PM EDT Immunization/Injecti on Hematology/Oncology Treatment, [place] [address] [place], [place] [address] Nurse, Med [address] [place] [place] [address] 08/18/2023 12:40 PM EDT Laboratory Laboratory [facility] [place] [address] [place] [address] [facility] [address] [facility], [place] [address] 08/18/2023 1:30 PM EDT Immunization/Injecti on Hematology/Oncology Treatment, [place] [address] [place] [address] [address] Nurse, Med 4 [address] [place], [place] [address] 08/25/2023 12:30 PM EDT Laboratory Laboratory [facility] [place] [address] [place] [phone] [place] [address] [facility] [place], [place] [address] 08/25/2023 1:00 PM EDT Immunization/Injecti on Hematology/Oncology Treatment, [place] [address] [place], [place] [phone] Nurse, Med 4 200 [facility] [place], [place] [address] 09/27/2023 10:30 AM EDT Office Visit Rheumatology [facility] [address] [place], [place] [address] Tommy Rodriguez PA-C [address] [place], [place] [address] 10/19/2023 11:20 AM EDT Office Visit Family Practice [address] [place] [address] 293 [facility], [place] [phone] Matilde Mauricio DO 293 [facility], [place] [address] 10/27/2023 10:10 AM EDT Laboratory Laboratory [place] [address] [place] [phone] [place] [address] [place] [address] 11/02/2023 11:30 AM EDT Office Visit Hematology/Oncology [facility] [place] 200 [facility] [place], [place] [phone] Eryn Morris CRNP [address] [place] [address] [place] [id number] 01/11/2024 4:00 PM EDT Cardiac Studies Cardiac Studies, [facility] [address] [facility] [place] [address] Scheduled Procedures Name [...] Additional history exists CKD PHOS USE SMARTSET 58583 12/14/202311/23, 01/05/2022, 05/08/2020, Additional history exists Influenza Vaccine (FLU shot) (Season Ended) 2023 01/30/2021, 01/16/2020, 01/10/2019, Additional history exists GFR 01/21/2024 07/21/2023, 04/24, 02/17/2023, Additional history exists Diabetic Eye Exam 03/10/2024 03/10/2023, , 02/16/2023, Additional history exists O2 ASSESSMENT COMPLETED IN PAST YEAR FOR COPD 07/20/2024 07/21/2023 CKD HGB USE SMARTSET 93789 08/03/202408/03, 08/04/2023, 07/28/2023, Additional history exists Lipid [...] oxygen GAS Inhalation, OXYGEN, First dose on Mon08/04/23 at 1600, Until Discontinued, Device/Managed by: Low [...] Date Dose Rate Site Epoetin Kai-epbx (Retacrit) 96833 UNIT/ML inj 40,000 Units 40,000 Units, Subcutaneous, ONCE, On Mon08/04/23 at 1330, For 1 dose Given 08/04/2023 1:00 PM EDT 40,000 Units Arm Right Upper documented in this encounter Care Teams Insole Lip Turner Relationship Specialty Start Date End Date Matilde Mauricio DO 293 [facility] [place] [address] PCP - General Family Medicine 12/15/22 documented as of this encounter
--- OUTSIDE RECORDS SUMMARY | 2023-08-28 21:09 | External Medical Summary ---
Author Name Unknown Address Unknown Organization K09[facility] [place] [address] Laboratory Report Ordering Provider Test Date Status KERRIE ESPINOZA 08/04/2023 12:10:49 Final Observation Date Value Abnormality Reference (Units ) Status WBC, Total 08/04/2023 12:10:49 7.79 4.00-10.8 0 (K/uL) Final RBC 08/04/2023 12:10:49 4.33 4.50-5.25 (M/uL) Final Hemoglobin 08/04/2023 12:10:49 10.3 Below low normal 14 .0-16.8 (g/dL) Final HCT 08/04/2023 12:10:49 35.2 Below low normal 40. 0-48.4 (%) Final MCV 08/04/2023 12:10:49 81.3 82.0-99.5 (fL) Final MCH 08/04/2023 12:10:49 23.8 27.0-34.0 (pg) Final MCHC 08/04/2023 12:10:49 29.3 32.0-36.0 (g/dL) Final RDW 08/04/2023 12:10:49 20.0 11.5-15.5 (%) Final Platelets 08/04/2023 12:10:49 386 140-400 (K /uL) Final MPV 08/04/2023 12:10:49 7.7 6.6-11.1 ( fL) Final Performing Location [facility] [place] [address]
--- OUTSIDE RECORDS SUMMARY | 2023-08-28 21:09 | External Medical Summary | Summary of Care ---
Author Name Unknown Organization [facility] Address [address] [facility] [place] [address] Phone [phone] Care Team Providers Care Telephone Maintainer Name Role Phone Matilde Mauricio Primary Care Provider [phone] Reason for Visit * Reason Comments Outpatient Testing Encounter Details Date Type Department Care Team (Late st Contact Info) Description 08/04/2023 12:50 PM EDT Laboratory Laboratory [facility] [address] [place] [phone] [place], Lab [place] [address] [place] [address] Iron deficiency anemia, unspecified iron deficiency anemia [...] Major depressive disorder, recurrent, moderate 0 10/19/2016 retirement current use of systemic steroids 03/26 Pseudogout [...] mRNA, LNP-s, No Pre serve, 2-Dose Series ([employer])) 03/04/2021,06/30/2020,06/09/2020 COVID-19, LNP-s, No Preserve , Pool-sucrose, Ages 12+ ([employer]) 12/07/2021 COVID-19, MRNA-LNP, 23-24, P F, 30 MCG/0.3 mL, 12 YRS AND ABOVE, IM ([employer]ighter-Comirnat) 03/07/2023 Covid-19, Mrna, Lnp-s, Pf, B ivalent, 30 Mcg, IM, 12 yrs and above ([employer])) 04/12/2022 Pneumococcal Conjugate Vacc, 13 Valent (Prevnar) [...] Contact Info) Description 08/04/2023 1:00 PM EDT Immunization/Injecti on Hematology/Oncology Treatment, [place] 200 [facility] [place] [phone] Nurse, Med 4 [address] [place] [address] Arrived 08/11/2023 12:20 PM EDT Laboratory Laboratory [place] [address] [place] [phone] [place] [address] [address] [facility] [place] [address] 08/11/2023 1:00 PM EDT Immunization/Injecti on Hematology/Oncology Treatment, [place] 200 [facility] [place] [phone] Nurse, Med 4 [address] [place], [place] [address] 08/18/2023 12:40 PM EDT Laboratory Laboratory [facility] [place] [address] [place], [place] [phone] [facility] [place] [address] [place], [place] [address] 08/18/2023 1:30 PM EDT Immunization/Injecti on Hematology/Oncology Treatment, [place] [address] [facility], [place] [phone] Nurse, Med 4 [address] [place], [place] [address] 08/25/2023 12:30 PM EDT Laboratory Laboratory [facility] [place] [address] [place], [place] [phone] [facility] [address] [place], [place] [address] 08/25/2023 1:00 PM EDT Immunization/Injecti on Hematology/Oncology Treatment, [place] [address] [facility], [place] [phone] Nurse, Med 4 200 [facility] [place], [place] [address] 09/27/2023 10:30 AM EDT Office Visit Rheumatology [facility] [address] [place], [place] [address] Tommy Rodriguez PANora [address] [place] [address] 10/19/2023 11:20 AM EDT Office Visit Family Practice [address] [place] [address] 293 [facility], [place] [address] Matilde Mauricio DO 293 [facility], [place] [address] 10/27/2023 10:10 AM EDT Laboratory Laboratory [address], [place] [address] [place] [address] [place], [address] [place] [address] 11/02/2023 11:30 AM EDT Office Visit [facility]ematology[facility]Oncology [facility] [address] [facility] [address] Eryn Morris, [place]EN[place] 400 [facility] [place] [address] 01/11/2024 4:00 PM EDT Cardiac Studies Cardiac Studies, [facility] [address] [facility] [place] [address] Pending Results Name Type Priority Associated Diagnoses Date /Time CBC WITH WBC DIFFERENTIAL Lab STAT Iron deficiency anemia, unspecified iron deficiency anemia type Anemia due to stage 3b chronic kidney disease (HCC) 08/04/2023 12:10 PM EDT CBC Lab STAT Iron deficiency anemia, unspecified iron deficiency anemia type Anemia due to stage 3b chronic kidney disease (HCC) 08/04/2023 12:10 PM EDT DIFFERENTIAL, AUTOMATED Lab STAT Iron deficiency anemia, unspecified iron deficiency anemia type Anemia due to stage 3b chronic kidney disease (HCC) 08/04/2023 12:10 PM EDT Scheduled Procedures Name Priority Associated [...] Additional history exists CKD PHOS USE SMARTSET 94696 12/14/202311/23, 01/05/2022, 05/08/2020, Additional history exists Influenza Vaccine (FLU shot) (Season Ended) 2023 01/30/2021, 01/16/2020, 01/10/2019, Additional history exists GFR 01/21/2024 07/21/2023, 04/24, 02/17/2023, Additional history exists Diabetic Eye Exam 03/10/2024 03/10/2023, , 02/16/2023, Additional history exists O2 ASSESSMENT COMPLETED IN PAST YEAR FOR COPD 07/20/2024 07/21/2023 CKD HGB USE SMARTSET 28248 07/27/202407/27, 07/28/2023, 07/21/2023, Additional history exists Lipid Panel 04/07/2028 04/07/2023, [...] (HCC) documented in this encounter Care Teams Telephone Maintainer Relationship Specialty Start Date End Date Matilde Mauricio DO [address] [place] [address] PCP - General Family Medicine 12/15/22 documented as of this encounter
[2023-08-28] MEDS: oxyCODONE HCL IR 5 MG TAB (IMMEDIATE RELEASE) PO PRN (21:48)
[2023-08-29] MEDS: VANCOMYCIN HCL 1,250 MG in SODIUM CHLORIDE 0.9% 250 ML IV SCH (05:10)
[2023-08-29] MEDS: tiZANidine HCL 4 MG TABLET PO STA (06:04)
[2023-08-29 06:46] LABS: Hematocrit (blood only) 34.5 % (42.0-52.0); Mean Corpuscular Volume 79.5 fL (80.0-100.0); Platelet Count 328 K/uL (130-400); RDW Coefficient of Variation 17.8 % (11.5-14.5); RDW Standard Deviation 50.5 fL (36.4-46.3); Red Blood Count 4.34 M/uL (4.70-6.10); White Blood Count 8.27 K/ul (4.8-10.8)
--- NOTE | 2023-08-29 06:56 | Orthopedic Progress Note ---
Date of Service August 29, 2023 Assessment & Plan (1) Septic arthritis of knee, right: Dennis was scheduled to undergo a standard knee replacement. Preoperatively he had a severe effusion of his right knee. When I opened up the knee joint there was a lot of cloudy almost purulent fluid that came out of the joint. Unfortunately, this was removed by suction. The knee joint itself looks like it may be infected. Tissue samples were sent to pathology and it showed up to 30 PMNs per high-power field. To note: I did his left knee replacement 3 months ago and he did very well with that. At that time he certainly did not have the effusion that he had on his right knee, however, the pathology report on his le ft knee came back as gout. I did not feel comfortable putting the knee replacement in with the possibility of an infection so the joint was washed out.'s tissue sample that I obtained when the knee was initially opened and was sent to lab for cultures. He is currently on vancomycin. The hospitalist was consulted to help with medications. Infectious disease will be consulted. We are still waiting the final pathology report. Subjective Dennis was seen and examined at bedside this morning. Overall he is doing okay. He is not having too much pain in the right knee. He was able to get some sleep last night. He has no complaints.. Review of Systems All systems reviewed & are unremarkable except as noted in HPI & below. Physical Exam On physical examination the right knee, the dressing is clean and dry. His legs out full extension. He has active dorsiflexion plantarflexion of the right ankle.. Results & Data Results & Data Laboratory Results . Diagnostic Findings . PG Care Time/CCT Total # of Minutes Spent Total Time Spent with Patient: Total time spent is greater than 50% in coordination of care (as documented) at patient's floor/unit and/or counseling patient: Coding Level of Care Code 93536 Post Operative Follow-Up Diagnoses Septic arthritis of knee, right M00.9
[2023-08-29 07:02] LABS: Calcium 7.8 mg/dl (8.6-10.3); Potassium 4.8 mmol/L (3.5-5.1)
--- NOTE | 2023-08-29 07:36 | Hospitalist Progress Note ---
Date of Service August 29, 2023 Assessment & Plan (1) Septic arthritis of knee, right: (2) Osteoarthritis of right knee: (3) DM type 2 (diabetes mellitus, type 2): (4) Chronic kidney disease (CKD), stage III (moderate): (5) Mild aortic stenosis: (6) H/O cardiac arrest: (7) HTN (hypertension): (8) Anxiety: Plan Pt is a 72 yo M with PMHx significant for diabetes, hypertension, PMR, OA, pulmonary hypertension, HENRIK and COPD presenting for I& D of right knee. Septic arthritis of knee, right Planned for R TKA, however, there was evidence of infection. Synovial fluid analysis and path pending Continues on vancomycin No evidence of sepsis Cont per orthopedics ID consulted by ortho, appreciate recs Osteoarthritis of right knee Pain control as needed in post op state. Of note, he typically takes hydrocodone 10/325mg QID. As he is now on scheduled Tylenol, was placed on oxycodone q6h to avoid overdosing on acetaminophen. DM type 2 (diabetes mellitus, type 2) Insulin dependent and on Ozempic. A1C is 7.9 from 08/02/23. Cont basal bolus insulin per glycemic pharmacist. The patient typically takes 30 to 45 units of lantus once daily and doesn't use short acting insulin. He reports taking 17 Units preoperatively Chronic kidney disease (CKD), stage III (moderate) chronic, stable. BMP in am Mild aortic stenosis ELBERT heard on exam Discontinued maintenance fluids that were running to avoid fluid overload This patient is not very mobile at this point On Torsemide H/O cardiac arrest h/o prior cardiac arrest in Feb 2017 intra-operatively, thought to be due to hypoxia/apnea followed by a bradyarrhythmia and wide complex arrhythmia. Echo and stress test following event did not suggest cardiac etiology. HTN (hypertension) chronic, at goal Cont home meds including Demadex, spironolactone, verapamil, Toprol XL Anxiety chronic, stable. Cont sertraline per home regimen DVT proph: ASA 81mg PO BID per primary team Full Code Dispo-uncertain at this time. Admission and Anticipated Discharge Date Admission Date: August 28, 2023 Subjective pt was seen laying in bed. Denied fever, chills or night sweats. Denied pain. in the knee Review of Systems Review of Systems: All systems reviewed & are unremarkable except as noted in Subjective Physical Exam Physical Exam: General: Alert, oriented. No acute distress Skin: No noted rashes or bruises Psych: Appropriate mood and affect Neuro: No gross deficits HEENT: NC/AT CV: RRR, murmur appreciated Resp: Breath sounds clear bilaterally, no increased effort of breathing. Abdomen: Soft Extremities: R knee bandaged Results & Data Results & Data Vital Signs (Past 12 Hours) Vital Signs Temp Pulse Resp BP Pulse Ox O2 Del Method 08/29/23 02:35 36.4 C L 73 14 163/83 H 96 Room Air 08/28/23 23:28 36.7 C 73 16 147/73 H 97 Room Air 08/28/23 21:59 Room Air 08/28/23 19:40 36.6 C 65 16 112/56 L 95 Room Air (3) DM type 2 (diabetes mellitus, type 2) Diabetes mellitus terminal block assembler insulin use: with terminal block assembler use Diabetes mellitus complication status: with neurologic complications Diabetes mellitus complication detail: with polyneuropathy Qualified Code(s): E11.42 - Type 2 diabetes mellitus with diabetic polyneuropathy; Z79.4 - FPC (current) use of insulin (7) HTN (hypertension) Hypertension type: primary hypertension Qualified Code(s): I10 - Essential (primary) hypertension
[2023-08-29] MEDS: SERTRALINE HCL 50 MG TABLET PO SCH (08:23)
[2023-08-29] MEDS: ATORVASTATIN 40 MG TAB PO SCH (08:24)
[2023-08-29] MEDS: METOPROLOL SUCC 25MG EXT REL TAB PO SCH (08:24)
[2023-08-29] MEDS: SPIRONOLACTONE 12.5 MG TAB PO SCH (08:24)
[2023-08-29] MEDS: MULTIVITAMIN TAB PO SCH (08:24)
[2023-08-29] MEDS: TAMSULOSIN HCL 0.4 MG CAP PO SCH (08:24)
[2023-08-29] MEDS: VERAPAMIL HCL 40 MG TAB PO SCH (08:25)
[2023-08-29] MEDS: TORSEMIDE 100 MG TAB PO SCH (08:25)
[2023-08-29] MEDS: LANTUS PER UNIT CHARGE SC ONE ×2 (08:28→11:54)
[2023-08-29 08:29] LABS: BUN Creatinine Ratio 24.8 (10-20); Creatinine Clr Calc Pharmacy 72.6 ml/min; Est GFR (African American) 79.3 ml/min; Est GFR (Non-African American) 68.4 ml/min
[2023-08-29] MEDS ORDERED: TORSEMIDE 100 MG TAB PO SCH (09:00)
--- NOTE | 2023-08-29 11:51 | Pharmacy Report ---
Pharmacy Glycemic Short Note 2 - Date of Service August 29, 2023 - Glycemic Short BSG Results (Last 24 hours): 08/28/23 08/28/23 08/28/23 15:06 16:37 20:34 Glucose POC Glucose 124 H 140 H 139 H 08/29/23 08/29/23 08/29/23 06:05 07:51 11:37 Glucose 178 H POC Glucose 170 H 228 H OUTPATIENT ANTIDIABETIC REGIMEN: * Lantus 30 units SQ daily * Ozempic 0.25mg SQ weekly (on Monday) * HbA1c: 7.9% (08/02/23) ASSESSMENT: * Mr Guo is a 72yo diabetic M admitted for TKA. In the OR, joint was found to be infected and TKA was postponed. * Pt received 8mg PO dexamethasone yesterday. * Pt initiated on SQ basal/bolus insulin regimen on admission. * Pharmacy will continue to follow and adjust regimen as indicated. PLAN FOR INPATIENT GLYCEMIC CONTROL: * Basal insulin * Lantus 20 units SQ today, will re-evaluate the dose tomorrow morning based on BSG trends today * Bolus insulin * NovoLog per scale ACHS or Q6hrs while NPO * Goal Range: Low 110 mg/dL - High 140 mg/dL * Correction Factor: 30 mg/dL/unit * Nutritional / Prandial insulin per carb ratio of 1 unit per 10 grams CHO consumed
--- NOTE | 2023-08-29 11:57 | Pharmacy Report ---
Pharmacy PK ABX Note - Date of Service August 29, 2023 - Assessment and Plan Assessment * Mr Guo is a 72 year old M receiving vancomycin for treatment of R septic knee. Pt was scheduled for TKA and infection was discovered in the OR. Knee replacement deferred. * Pertinent microbiologic data includes: OR cultures pending * PMH includes DM, CKD III, diverticular disease, heart failure, HENRIK on CPAP, hx EtOH abuse Plan Vancomycin * Loading dose: 2000 mg IV x 1 * Maintenance dose: 1250 mg IV every 12 hours * Regimen is predicted to exceed target AUC/ALONDRA of 400-600 mg/L.hr at steady state, so will plan to reduce dose starting tommorow to maintain AUC in upper end of goal (for joint infection). Tomorrow morning, reduce to vancomycin 1gm IV q12h * Trough level ordered for: 08/30 prior to the 3rd maintenance dose of new regimen Pharmacy will continue to follow and will adjust dose/frequency as necessary. Thank you. Pharmacy has transitioned to AUC monitoring for vancomycin. AUC/ALONDRA is the preferred PK/PD target and is associated with decreased risk of nephrotoxicity compared to traditional trough targets.
--- NOTE | 2023-08-29 12:12 | Infectious Disease Consult ---
Date of Consultation August 29, 2023 Assessment & Plan (1) Septic arthritis of knee, right: (2) Osteoarthritis of right knee: (3) Status post left knee replacement: Plan This is a 72-year-old male with past medical history of DM2, hypertension, PMR, osteoarthritis, pulmonary hypertension, recent left total knee arthroplasty on 06/09/2023 who presents for evaluation of right knee pain and I & D. He reports chronic bilateral knee pain for years secondary to osteoarthritis for which he has undergone steroid injections.. His Left knee pain improved after Left arthroplasty in 05/2023. 2 weeks post procedure, he noted increasing right knee pain. He received a steroid injection on 06/27/2023. He was subsequently found to have a large right knee effusion and was evaluated by orthopedics. He was scheduled for an elective right knee arthroplasty. He presented on 08/28/23 for right knee arthroplasty. He was found to have a large R knee effusion with erythema around the skin. Per operative report, when the arthrotomy was made there was a large amount of infected appearing synovial fluid from the joint. There was purulent appearing tissue within the knee joint with concern for septic knee. Infectious appearing soft tissue of the synovium was sent for pathology and culture. Per Pathologist report to OR, there was high levels of PMNs in each section ( between 7-30). There appeared to be necrosis and wearing away of the chondral surface. There was concern for an chr onic infection. Unfortunately no synovial fluid was sent. The tissue was irrigated. He was started on IV vancomycin. OR Cultures and pathology pending. ID consulted for probable right septic knee. On my initial evaluation, he complains of occasional sweats and right knee pain. He reports a slip and fall out of his wheelchair about 3-4 to weeks prior to admission. He denies break in skin, wounds or drainage. He denies fever, chills, nausea, vomiting, abdominal pain,or shortness of breath . Left knee pain is healing well psot prior surgery. He uses a wheelchair to get around. He is HDS. Labs noted for a WBC of 8.07, BUN 27, creatinine 1.09. Micro: Right knee aerobic/anaerobic culture, 08/27: Rare WBCs , no organisms seen, Cultures pending Antibiotics: Ancef 08/27 Vancomycin 08/27ongoing # Possible Right [place] septic knee # S/P Left TKA 06/09/23 #H/O Left Hip replacment with hardware # H/O Spinal fusion with Hardware Recommendations: Continue IV vancomycin per pharmacy protocol Added Ceftriaxone 2 g IV daily Follow up Intraoperative cultures Follow up Pathology Final antibiotic choice and duration will depend on intraoperative cultures and pathology. Thank you for this consult. ID will continue to follow Marvin Griggs MD, MPH Infectious Disease [facility], [facility] Call [phone] with questions. Consultation Information Consultation was provided via telemedicine using two-way real-time interactive telecommunication between the patient and the telemedicine provider. For the duration of the visit, the provider was performing the assessment from a different facility than the patient. This includesuse of bluetooth stethoscope forauscultationperformed by the telepresenter that the telemedicine provider can hear if described in the physical exam. Fitness Director contact information: Please call [facility] Center [phone]. (Phone Number For Physician Use Only) After establishing a telemedicine visit, patient was: Patient was verified with two unique identifiers, Patient/authorized rep acknowledged consent and understanding and Gave permission to continue telehealth session Time Spent with Patient: Initial => 75 min History of Present Illness Reason for Consultation: Right septic [place] knee Requesting Physician: MACKENZIE Overton Attending Physician: Arian Dee DO History of Present Illness This is a 72-year-old male with past medical history of DM2, hypertension, PMR, osteoarthritis, pulmonary hypertension, recent left total knee arthroplasty on 06/09/2023 who presents for evaluation of right knee pain and I & D. He reports chronic bilateral knee pain for years secondary to osteoarthritis for which he has undergone steroid injections.. His Left knee pain improved after Left arthroplasty in 05/2023. 2 weeks post procedure, he noted increasing right knee pain. He received a steroid injection on 06/27/2023. He was subsequently found to have a large right knee effusion and was evaluated by orthopedics. He was scheduled for an elective right knee arthroplasty. He presented on 08/28/23 for right knee arthroplasty. He was found to have a large R knee effusion with erythema around the skin. Per operative report, when the arthrotomy was made there was a large amount of infected appearing synovial fluid from the joint. There was purulent appearing tissue within the knee joint with concern for septic knee. Infectious appearing soft tissue of the synovium was sent for pathology and culture. Per Pathologist report to OR, there was high levels of PMNs in each section ( between 7-30). There appeared to be necrosis and wearing away of the chondral surface. There was concern for an chronic infection. Unfortunately no synovial fluid was sent. The tissue was irrigated. He was started on IV vancomycin. OR Cultures and pathology pending. ID consulted for probable right septic knee. On my initial evaluation, he complains of occasional sweats and right knee pain. He reports a slip and fall out of his wheelchair about 3-4 to weeks prior to admission. He denies break in skin, wounds or drainage. He denies fever, chills, nausea, vomiting, abdominal pain,or shortness of breath . Left knee pain is healing well psot prior surgery. He uses a wheelchair to get around. He is HDS. Labs noted for a WBC of 8.07, BUN 27, creatinine 1.09. Allergies Allergy/AdvReac Type Severity Reaction Status Date / Time No Known Allergies Allergy Verified 08/28/23 10:52 Home Medications Medication Instructions Recorded Confirmed Type folic acid 1 mg tablet 1 mg PO QAM 12/10/18 08/28/23 History tamsulosin 0.4 mg capsule 0.8 mg PO QAM #30 caps 12/10/18 08/28/23 History acetaminophen 500 mg tablet 1,000 mg PO Q6H PRN Pain 01/30/19 08/28/23 History cholecalciferol (vitamin D3) 50 2,000 unit PO QAM 01/30/19 08/28/23 History mcg (2,000 unit) tablet fluocinonide 0.05 % topical 1 applic topical BID PRN Rash 01/30/19 08/28/23 History ointment lorazepam 0.5 mg tablet 0.5 mg PO DAILY PRN Anxiety 01/30/19 08/28/23 History pantoprazole 40 mg tablet,delayed 40 mg PO QAM 01/30/19 08/28/23 History release polyethylene glycol 3350 17 17 g PO DAILY PRN Constipation 01/30/19 08/28/23 History gram/dose oral powder (Miralax) pregabalin 100 mg capsule 100 mg PO TID 01/30/19 08/28/23 History spironolactone 25 mg tablet 12.5 mg PO QAM 01/30/19 08/28/23 History verapamil 120 mg tablet 120 mg PO Q2D 01/30/19 08/28/23 History torsemide 100 mg tablet 50 mg PO QAM 12/25/19 08/28/23 History atorvastatin 40 mg tablet 40 mg PO QAM 06/06/22 08/28/23 History semaglutide 0.25 mg or 0.5 mg (2 0.25 mg subcut Q7D 06/06/22 08/28/23 History mg/3 mL) subcutaneous pen injector (Ozempic) CPAP Machine #1 ea 09/21/22 08/28/23 Rx cyanocobalamin (vitamin B-12) 5,000 mcg sublingual QAM 05/24/23 08/28/23 History 5,000 mcg sublingual tablet (Vitamin B-12) metoprolol succinate 25 mg 25 mg PO QAM 05/24/23 08/28/23 History tablet,extended release 24 hr (Toprol XL) sertraline 150 mg capsule 150 mg PO QAM 05/24/23 08/28/23 History hydrocodone 10 mg-acetaminophen 1 tab PO Q6H PRN Pain (Scale Score 08/28/23 08/28/23 History 325 mg tablet 7-10) insulin glargine 100 unit/mL (3 30 unit subcut QAM 08/28/23 08/28/23 History mL) subcutaneous pen (Lantus Solostar U-100 Insulin) Patient History Medical History H/O cardiac arrest Alcohol abuse Pulmonary hypertension PASP 41 mmHg on 12/2022 echo Heart failure History of blood transfusion 2017 History of anesthesia reaction during left DANY 2017 @ [facility] > Per [facility] discharge summary (03/08/17): Intraoperative bradycardia/unresponsive/hypotensive > CPR begun/epi > wide complex tachycardia s/p synchronized cardioversion shocks- transferred to ICU intubated. Stabilized next day and went back to OR to complete DANY. Tolerated procedure okay and sent back to ICU (extubated next day). Hx heavy ETOH use noted. Chronic anemia Iron deficiency Following closely with [facility] heme/onc, "Cause of anemia is likely multifactorial including ACD/AI, renal insufficiency, andiron deficiency" PMR (polymyalgia rheumatica) Aortic stenosis Echo 12/2022: Moderate aortic stenosis Cardiac arrhythmia Per [facility] discharge summary (03/08/17): Intraoperative bradycardia/unresponsive/hypotensive during Left DANY > CPR begun/epi > wide complex tachycardia s/p synchronized cardioversion shocks- transferred to ICU intubated. Stabilized next day and went back to OR to complete DANY. Tolerated procedure okay and sent back to ICU (extubated next day). Hx heavy ETOH use noted. Pt has had anesthesia since (colonoscopy 2018, B/L cataracts 06/2022) without issue Follows with Dr. Remy Arthritis Personal history of diabetic foot ulcer Diabetic peripheral neuropathy associated with type 2 diabetes mellitus feet Morbid obesity HENRIK (obstructive sleep apnea) CPAP (current occasional use, spoke with patient at PAT visit 05/26/23- patient voiced that he will plan to be compliant prior to DOS) Pseudogout hx Spinal stenosis Chronic kidney disease (CKD), stage III (moderate) Diverticular disease Diabetes mellitus, type 2 Hearing deficit hearing aids b/l Anxiety Hypertension controlled, stable per pt Hyperlipidemia Surgical History History of left knee replacement 06/09/23 [facility] Hx of left cataract extraction History of right cataract surgery History of carpal tunnel surgery of right wrist History of lumbar spinal fusion History of total left hip replacement Left DANY anterior (03/01/17): SAB at L3-4 at [facility] > Per [facility] discharge summary (03/08/17): Intraoperative bradycardia/unresponsive/hypotensive > CPR begun/epi > wide complex tachycardia s/p synchronized cardioversion shocks- transferred to ICU intubated. Stabilized next day and went back to OR to complete DANY. Tolerated procedure okay and sent back to ICU (extubated next day). Hx heavy ETOH use noted. History of arthroscopy of left knee History of left knee surgery History of colonoscopy History of esophagogastroduodenoscopy (EGD) History of tooth extraction partial upper and lower denture History of wisdom tooth extraction Family History Mother Family history of diabetes mellitus Brother Family history of diabetes mellitus Sister Family history of diabetes mellitus Other No family history of adverse response to anesthesia Social History Smoking Status: Former smoker Tobacco Type: Cigarettes Cigarettes Per Day: Quit 2017; Second Hand Exposure: No; Do You Dip or Chew Tobacco: No; Tobacco Cessation Education Requested by Patient: No Hx Alcohol Use: Yes Alcohol type: beer Hx Substance Use: No Preferred Language: Tamazight Communication Ability: Effective Director Of Health Education Required: No Beliefs That Will Affect Care: None Current Living Situation: Other Current Living Situation Comment: lives with ex- and her new -in their basement Feels Safe at Home: Yes Safety Concerns: Feels Safe At This Time Assistive Devices: CPAP, Denture - Upper, Denture - Lower, Glasses, Hearing Aid - Bilateral, Lift Chair, Walker and Wheelchair Review of System A 10 point ROS obtained. Pertinent positives as per HPI. Physical Exam Physical Exam: Gen- NAD HEENT, Anicteric sclera, EOMI,hearing intact Neck- Supple Lungs-No increased work of breathing. Abd- Soft,Nontender, non distended Ext- B/L LE dressed. Right LE with edeme on exposed LE. TTP at [facility]. Neuro- Awake, alert, oriented time 3 Psych- cooperative, appropriate Results & Data Vital Signs (Past 12 Hours) Vital Signs Temp Pulse Resp BP Pulse Ox O2 Del Method 08/29/23 11:07 36.4 C L 77 16 155/89 H 98 Room Air 08/29/23 07:53 36.4 C L 78 16 154/84 H 96 Room Air 08/29/23 02:35 36.4 C L 73 14 163/83 H 96 Room Air Laboratory Results Laboratory Results - last 48 hr 08/28/23 08/28/23 08/28/23 10:46 15:06 16:37 WBC RBC Hgb Hct MCV MCH MCHC RDW Std Deviation RDW Coeff of Geovanna Plt Count MPV Sodium Potassium Chloride Carbon Dioxide Anion Gap BUN Creatinine Est Cr Clr Drug Dosing Est GFR ( Amer) Est GFR (Non-Af Amer) BUN/Creatinine Ratio Glucose POC Glucose 122 H 124 H 140 H Calcium 08/28/23 08/28/23 08/29/23 17:28 20:34 06:05 WBC 8.27 RBC 4.34 L Hgb 10.0 L Hct 34.5 L MCV 79.5 L MCH 23.0 L MCHC 29.0 L RDW Std Deviation 50.5 H RDW Coeff of Geovanna 17.8 H Plt Count 328 MPV 8.0 L Sodium 138 Potassium 4.8 Chloride 105 Carbon Dioxide 24 Anion Gap 9 BUN 27 H Creatinine 0.90 1.09 Est Cr Clr Drug Dosing 87.9 72.6 Est GFR ( Amer) 99.9 79.3 Est GFR (Non-Af Amer) 86.2 68.4 BUN/Creatinine Ratio 24.8 H Glucose 178 H POC Glucose 139 H Calcium 7.8 L 08/29/23 08/29/23 07:51 11:37 WBC RBC Hgb Hct MCV MCH MCHC RDW Std Deviation RDW Coeff of Geovanna Plt Count MPV Sodium Potassium Chloride Carbon Dioxide Anion Gap BUN Creatinine Est Cr Clr Drug Dosing Est GFR ( Amer) Est GFR (Non-Af Amer) BUN/Creatinine Ratio Glucose POC Glucose 170 H 228 H Calcium Microbiology 08/28/23 14:40 Knee,Right Gram Stain - Final 08/28/23 14:40 Knee,Right Aerobic and Anaerobic Culture - Preliminary No growth to date. Medications Administered Home Medications Medication Instructions Recorded Confirmed Last Taken folic acid 1 mg tablet 1 mg PO QAM 12/10/18 08/28/23 08/27/23 08:00 tamsulosin 0.4 mg capsule 0.8 mg PO QAM #30 caps 12/10/18 08/28/23 08/28/23 08:30 acetaminophen 500 mg tablet 1,000 mg PO Q6H PRN Pain 01/30/19 08/28/23 08/27/23 10:00 cholecalciferol (vitamin D3) 50 2,000 unit PO QAM 01/30/19 08/28/23 08/27/23 08:00 mcg (2,000 unit) tablet fluocinonide 0.05 % topical 1 applic topical BID PRN Rash 01/30/19 08/28/23 06/08/22 08:00 ointment lorazepam 0.5 mg tablet 0.5 mg PO DAILY PRN Anxiety 01/30/19 08/28/23 03/08/23 pantoprazole 40 mg tablet,delayed 40 mg PO QAM 01/30/19 08/28/23 08/28/23 08:30 release polyethylene glycol 3350 17 17 g PO DAILY PRN Constipation 01/30/19 08/28/23 08/27/23 10:00 gram/dose oral powder (Miralax) pregabalin 100 mg capsule 100 mg PO TID 01/30/19 08/28/23 08/28/23 08:30 spironolactone 25 mg tablet 12.5 mg PO QAM 01/30/19 08/28/23 08/26/23 10:00 verapamil 120 mg tablet 120 mg PO Q2D 01/30/19 08/28/23 08/27/23 10:00 torsemide 100 mg tablet 50 mg PO QAM 12/25/19 08/28/23 08/26/23 10:00 atorvastatin 40 mg tablet 40 mg PO QAM 06/06/22 08/28/23 08/28/23 08:30 semaglutide 0.25 mg or 0.5 mg (2 0.25 mg subcut Q7D 06/06/22 08/28/23 08/18/23 21:00 mg/3 mL) subcutaneous pen injector (Ozempic) CPAP Machine #1 ea 09/21/22 08/28/23 Unknown cyanocobalamin (vitamin B-12) 5,000 mcg sublingual QA 05/24/23 08/28/23 06/08/23 08:00 5,000 mcg sublingual tablet (Vitamin B-12) metoprolol succinate 25 mg 25 mg PO QA 05/24/23 08/28/23 08/28/23 08:30 tablet,extended release 24 hr (Toprol XL) sertraline 150 mg capsule 150 mg PO QA 05/24/23 08/28/23 08/28/23 08:30 hydrocodone 10 mg-acetaminophen 1 tab PO Q6H PRN Pain (Scale Score 08/28/23 08/28/23 Unknown 325 mg tablet 7-10) insulin glargine 100 unit/mL (3 30 unit subcut QA 08/28/23 08/28/23 Unknown mL) subcutaneous pen (Lantus Solostar U-100 Insulin) Active Medications Generic Name Dose Route Start Last Admin Trade Name Freq PRN Reason Stop Dose Admin Acetaminophen 1,000 mg 08/28/23 22:00 08/29/23 13:01 Acetaminophen 500 Mg Tab PO 09/27/23 21:59 1,000 mg Q8 KAL Administration Aspirin 81 mg 08/28/23 21:00 08/29/23 08:23 Aspirin 81 Mg Ectab PO 09/27/23 20:59 81 mg BID KAL Administration Atorvastatin Calcium 40 mg 08/29/23 09:00 08/29/23 08:24 Atorvastatin 40 Mg Tab PO 09/28/23 08:59 40 mg QAM KAL Administration Docusate Sodium 100 mg 08/28/23 21:00 08/29/23 08:23 Docusate Sodium 100 Mg Cap PO 09/27/23 20:59 100 mg BID KAL Administration Vancomycin HCl 1,250 mg/ 275 mls @ 200 mls/hr 08/29/23 05:00 08/29/23 06:37 Sodium Chloride IV 08/29/23 23:59 Infused Q12H KAL Infusion Insulin Aspart 0 units 08/28/23 17:15 08/29/23 11:54 Insulin Aspart Per Unit Charge SC 09/27/23 17:14 6 units ACHS KAL Administration Ketorolac Tromethamine 15 mg 08/28/23 18:00 08/29/23 11:44 Ketorolac Tromethamine 15 Mg/Ml Vial IV 08/30/23 12:01 15 mg Q6H KAL Administration Metoprolol Succinate 25 mg 08/29/23 09:00 08/29/23 08:24 Metoprolol Succ 25mg Ext Rel Tab PO 09/28/23 08:59 25 mg QAM KAL Administration Multivitamins 1 tab 08/29/23 09:00 08/29/23 08:24 Multivitamin Tab PO 09/28/23 08:59 1 tab QAM KAL Administration Oxycodone HCl 5 mg 08/28/23 18:59 08/29/23 05:10 Oxycodone Hcl Ir 5 Mg Tab (Immediate Release) PO 09/11/23 18:58 5 mg Q6H PRN Administration Severe Pain (Scale 7, 8, 9,10) Pregabalin 100 mg 08/28/23 21:00 08/29/23 13:01 Pregabalin 100 Mg Cap PO 09/27/23 20:59 100 mg TID KAL Administration Sennosides 17.2 mg 08/28/23 21:00 08/28/23 20:39 Senna 8.6 Mg Tab PO 09/27/23 20:59 17.2 mg HS KAL Administration Sertraline HCl 150 mg 08/29/23 09:00 08/29/23 08:23 Sertraline Hcl 50 Mg Tablet PO 09/28/23 08:59 150 mg QAM KAL Administration Spironolactone 12.5 mg 08/29/23 09:00 08/29/23 08:24 Spironolactone 12.5 Mg Tab PO 09/28/23 08:59 12.5 mg QAM KAL Administration Tamsulosin HCl 0.8 mg 08/29/23 09:00 08/29/23 08:24 Tamsulosin Hcl 0.4 Mg Cap PO 09/28/23 08:59 0.8 mg QAM KAL Administration Torsemide 50 mg 08/29/23 09:00 08/29/23 08:25 Torsemide 100 Mg Tab PO 09/28/23 08:59 50 mg QAM KAL Administration Verapamil HCl 120 mg 08/29/23 09:00 08/29/23 08:25 Verapamil Hcl 40 Mg Tab PO 09/28/23 08:59 120 mg Q2D KAL Administration
[2023-08-29] MEDS: HYDROmorphone INJ 0.5 MG/0.5 ML SYR IV PRN (21:07)
[2023-08-30] MEDS: VANCOMYCIN HCL 1,000 MG in SODIUM CHLORIDE 0.9% 250 ML IV SCH (05:03)
--- NOTE | 2023-08-30 07:01 | Orthopedic Progress Note ---
Date of Service August 30, 2023 Assessment & Plan (1) Septic arthritis of knee, right: Plan We are currently waiting pathology and culture results. I checked the pathology report from his other knee and it did show gout. I am hoping there may be a strong case for gout in his right knee. We are awaiting pathology results. For now, he can be weightbearing as tolerated on his right knee. Will continue the IV antibiotics with a suspicion for infection. We will continue to treat acco rdingly. He has been seen by infectious disease. George Salazar was seen and examined at bedside this morning. Overall he is doing okay. He is not having too much pain in the right knee. He has not been ambulating much yet. He has no new complaints.. Review of Systems All systems reviewed & are unremarkable except as noted in HPI & below. Physical Exam Examination of the right knee, the dressing is clean and dry. His leg is out full extension. He has active dorsiflexion plantarflexion of the right ankle. Results & Data Results & Data Laboratory Results . Diagnostic Findings . PG Care Time/CCT Total # of Minutes Spent Total Time Spent with Patient: Total time spent is greater than 50% in coordination of care (as documented) at patient's floor/unit and/or counseling patient: Coding Level of Care Code 35125 Post Operative Follow-Up Diagnoses Septic arthritis of knee, right M00.9
[2023-08-30 07:33] LABS: Basophils # (auto) 0.04 K/uL (0.00-0.20); Basophils % (auto) 0.5 %; Eosinophils # (auto) 0.08 K/uL (0.00-0.50); Hematocrit (blood only) 33.4 % (42.0-52.0); Hemoglobin 9.7 g/dl (14.0-18.0); Immature Granulocytes # (auto) 0.06 K/uL (0.01-0.20); Immature Granulocytes % (auto) 0.7 %; Lymphocytes # (auto) 1.24 K/uL (1.20-3.40); Lymphocytes % (auto) 14.9 %; Mean Corpuscular Hemoglobin 22.8 pg (25.0-34.0); Mean Corpuscular Volume 78.6 fL (80.0-100.0); Monocytes # (auto) 0.68 K/uL (0.11-0.59); Monocytes % (auto) 8.2 %; Neutrophils # (auto) 6.23 K/uL (1.40-6.50); Neutrophils % (auto) 74.7 %; Platelet Count 341 K/uL (130-400); RDW Coefficient of Variation 18.1 % (11.5-14.5); RDW Standard Deviation 50.1 fL (36.4-46.3); Red Blood Count 4.25 M/uL (4.70-6.10); White Blood Count 8.33 K/ul (4.8-10.8)
[2023-08-30] MEDS: LANTUS PER UNIT CHARGE SC SCH (08:05)
[2023-08-30 08:12] LABS: BUN Creatinine Ratio 26.2 (10-20); Calcium 7.6 mg/dl (8.6-10.3); Creatinine Clr Calc Pharmacy 62.8 ml/min; Est GFR (African American) 66.5 ml/min; Est GFR (Non-African American) 57.4 ml/min; Magnesium 1.7 mg/dl (1.7-2.4); Phosphorus 4.2 mg/dl (2.5-4.9); Potassium 3.8 mmol/L (3.5-5.1)
--- NOTE | 2023-08-30 08:52 | Hospitalist Progress Note ---
Date of Service August 30, 2023 Assessment & Plan (1) Septic arthritis of knee, right: (2) Osteoarthritis of right knee: (3) DM type 2 (diabetes mellitus, type 2): (4) Chronic kidney disease (CKD), stage III (moderate): (5) Mild aortic stenosis: (6) H/O cardiac arrest: (7) HTN (hypertension): (8) Anxiety: Plan Pt is a 72 yo M with PMHx significant for diabetes, hypertension, PMR, OA, pulmonary hypertension, HENRIK and COPD presenting for I& D of right knee. Septic arthritis of knee, right Planned for R TKA, however, there was evidence of infection. Synovial fluid analysis and path pending Continues on vancomycin No evidence of sepsis Cont per orthopedics ID consulted by max, [place] recs Cont. vancomycin, ceftriaxone added as per ID, follow pathology Osteoarthritis of right knee Pain control as needed in post op state. Of note, he typically takes hydrocodone 10/325mg QID. As he is now on scheduled Tylenol, was placed on oxycodone q6h to avoid overdosing on acetaminophen. DM type 2 (diabetes mellitus, type 2) Insulin dependent and on Ozempic. A1C is 7.9 from 08/02/23. glycemic pharmacy consulted pt typically takes 30 to 45 units of lantus once daily and doesn't use short acting insulin. Chronic kidney disease (CKD), stage III (moderate) chronic, stable. BMP in am Mild aortic stenosis ELBERT heard on exam Discontinued maintenance fluids that were running to avoid fluid overload This patient is not very mobile at this point On Torsemide H/O cardiac arrest h/o prior cardiac arrest in Feb 2017 intra-operatively, thought to be due to hypoxia/apnea followed by a bradyarrhythmia and wide complex arrhythmia. Echo and stress test following event did not suggest cardiac etiology. HTN (hypertension) chronic, at goal Cont home meds including Demadex, spironolactone, verapamil, Toprol XL Anxiety chronic, stable. Cont sertraline per home regimen DVT proph: ASA 81mg PO BID per primary team Full Code Dispo-uncertain at this time. Admission and Anticipated Discharge Date Admission Date: August 28, 2023 Subjective Pt seen in follow up of med consult, s/p R knee surgery / septic knee Seen by ID Currently on vancomycin, ceftriaxone added, pathology pending Pt is currently laying in bed in NAD Denies any fever, chills, shortness of breath, chest pain, or abdominal pain + pain in the R knee Review of Systems Review of Systems: All systems reviewed & are unremarkable except as noted in Subjective Physical Exam Physical Exam: General: WD/WN elderly M in NAD. Alert, oriented. No acute distress Skin: No noted rashes or bruises Psych: Appropriate mood and affect Neuro: No gross deficits HEENT: NC/AT CV: RRR, murmur appreciated Resp: Breath sounds clear bilaterally, no increased effort of breathing. Abdomen: Soft Extremities: R knee in DORINA wraps Results & Data Results & Data Vital Signs (Past 12 Hours) Vital Signs Temp Pulse Resp BP Pulse Ox O2 Del Method 08/30/23 07:25 36.7 C 65 18 157/78 H 96 Room Air 08/29/23 21:15 36.5 C 70 18 158/79 H 96 Room Air Laboratory Results 08/30/23 08/30/23 08/29/23 Range/Units 07:30 06:31 21:04 WBC 8.33 (4.8-10.8) K/ul RBC 4.25 L (4.70-6.10) M/uL Hgb 9.7 L (14.0-18.0) g/dl Hct 33.4 L (42.0-52.0) % MCV 78.6 L (80.0-100.0) fL MCH 22.8 L (25.0-34.0) pg MCHC 29.0 L (32.0-36.0) g/dL RDW Std Deviation 50.1 H (36.4-46.3) fL RDW Coeff of Geovanna 18.1 H (11.5-14.5) % Plt Count 341 (130-400) K/uL MPV 8.0 L (9.4-12.4) fL Immature Gran % (Auto) 0.7 % Neut % (Auto) 74.7 % Lymph % (Auto) 14.9 % [place] % (Auto) 8.2 % Eos % (Auto) 1.0 % Baso % (Auto) 0.5 % Neut # (Auto) 6.23 (1.40-6.50) K/uL Lymph # (Auto) 1.24 (1.20-3.40) K/uL [place] # (Auto) 0.68 H (0.11-0.59) K/uL Eos # (Auto) 0.08 (0.00-0.50) K/uL Baso # (Auto) 0.04 (0.00-0.20) K/uL Immature Gran # (Auto) 0.06 (0.01-0.20) K/uL Sodium 141 (136-145) mmol/L Potassium 3.8 D (3.5-5.1) mmol/L Chloride 108 H (98-107) mmol/L Carbon Dioxide 25 (21-32) mmol/L Anion Gap 8 (3-11) BUN 33 H (6-23) mg/dl Creatinine 1.26 (0.6-1.4) mg/dl Est Cr Clr Drug Dosing 62.8 ml/min Est GFR ( Amer) 66.5 ml/min Est GFR (Non-Af Amer) 57.4 ml/min BUN/Creatinine Ratio 26.2 H (10-20) Glucose 97 (70-99(Fasting)) mg/dl POC Glucose 93 142 H (70-99) mg/dl Calcium 7.6 L (8.6-10.3) mg/dl Phosphorus 4.2 (2.5-4.9) mg/dl Magnesium 1.7 (1.7-2.4) mg/dl 08/29/23 08/29/23 Range/Units 16:47 11:37 WBC (4.8-10.8) K/ul RBC (4.70-6.10) M/uL Hgb (14.0-18.0) g/dl Hct (42.0-52.0) % MCV (80.0-100.0) fL MCH (25.0-34.0) pg MCHC (32.0-36.0) g/dL RDW Std Deviation (36.4-46.3) fL RDW Coeff of Geovanna (11.5-14.5) % Plt Count (130-400) K/uL MPV (9.4-12.4) fL Immature Gran % (Auto) % Neut % (Auto) % Lymph % (Auto) % [place] % (Auto) % Eos % (Auto) % Baso % (Auto) % Neut # (Auto) (1.40-6.50) K/uL Lymph # (Auto) (1.20-3.40) K/uL [place] # (Auto) (0.11-0.59) K/uL Eos # (Auto) (0.00-0.50) K/uL Baso # (Auto) (0.00-0.20) K/uL Immature Gran # (Auto) (0.01-0.20) K/uL Sodium (136-145) mmol/L Potassium (3.5-5.1) mmol/L Chloride (98-107) mmol/L Carbon Dioxide (21-32) mmol/L Anion Gap (3-11) BUN (6-23) mg/dl Creatinine (0.6-1.4) mg/dl Est Cr Clr Drug Dosing ml/min Est GFR ( Amer) ml/min Est GFR (Non-Af Amer) ml/min BUN/Creatinine Ratio (10-20) Glucose (70-99(Fasting)) mg/dl POC Glucose 196 H 228 H (70-99) mg/dl Calcium (8.6-10.3) mg/dl Phosphorus (2.5-4.9) mg/dl Magnesium (1.7-2.4) mg/dl Medications Administered Current Inpatient Medications Acetaminophen (Acetaminophen 500 Mg Tab) 1,000 mg PO Q8 KAL Stop: 09/27/23 21:59 Last Admin: 08/30/23 05:00 Dose: 1,000 mg Aspirin (Aspirin 81 Mg Ectab) 81 mg PO BID KAL Stop: 09/27/23 20:59 Last Admin: 08/30/23 07:28 Dose: 81 mg Atorvastatin Calcium (Atorvastatin 40 Mg Tab) 40 mg PO QAM KAL Stop: 09/28/23 08:59 Last Admin: 08/30/23 07:29 Dose: 40 mg Bisacodyl (Bisacodyl 10 Mg Supp) 10 mg RI DAILY PRN PRN Reason: Constipation Stop: 09/27/23 16:35 Dextrose (Dextrose 50% 50 Ml Syringe) 25 - 50 ml IV UD PRN; Protocol PRN Reason: Hypoglycemia Protocol Stop: 09/27/23 17:29 Docusate Sodium (Docusate Sodium 100 Mg Cap) 100 mg PO BID KAL Stop: 09/27/23 20:59 Last Admin: 08/30/23 07:29 Dose: 100 mg Fluocinonide (Fluocinonide 0.05% Oint 15 Gm Tube) 1 appln EXT BID PRN PRN Reason: Rash Stop: 09/27/23 16:35 Glucagon (Glucagon For Inj 1 Mg Vial) 1 mg IM UD PRN; Protocol PRN Reason: Hypoglycemia Protocol Stop: 09/27/23 17:29 Glucose (Glucose 40% Gel 15 Gm Tube) 15 - 30 gm PO UD PRN; Protocol PRN Reason: Hypoglycemia Protocol Stop: 09/27/23 17:29 Glucose (Glucose 10 Tab/Tube) 4 - 8 tab PO UD PRN; Protocol PRN Reason: Hypoglycemia Protocol Stop: 09/27/23 17:29 Hydromorphone HCl (Hydromorphone Inj 0.5 Mg/0.5 Ml Syr) 0.5 mg IV Q4H PRN PRN Reason: Pain or Pre PT Stop: 09/11/23 16:35 Last Admin: 08/30/23 05:03 Dose: 0.5 mg Vancomycin HCl 1,000 mg/ (Sodium Chloride) 270 mls @ 200 mls/hr IV Q12H KAL Stop: 10/10/23 05:59 Last Infusion: 08/30/23 06:27 Dose: Infused Insulin Aspart (Insulin Aspart Per Unit Charge) 0 units SC ACHS [facility] Stop: 09/27/23 17:14 Last Admin: 08/30/23 08:04 Dose: 2 units Insulin Glargine (L[facility]us Per Unit Charge) [facility] [place] [facility] [place] Stop: 09/29/23 08:59 Last Admin: 08/30/23 08:05 Dose: 20 units Ketorolac Tromethamine (Ketorolac Tromethamine 15 Mg/Ml Vial) 15 mg IV Q6H KAL Stop: 08/30/23 12:01 Last Admin: 08/30/23 05:00 Dose: 15 mg Lorazepam (Lorazepam 0.5 Mg Tab) 0.5 mg PO Q24H PRN PRN Reason: Anxiety Stop: 09/27/23 16:35 Magnesium Hydroxide (Magnesium Hydroxide Susp 30 Ml Udc) 30 ml PO Q6H PRN PRN Reason: Constipation Stop: 09/27/23 16:35 Magnesium Oxide (Magnesium Oxide 400 Mg Tab) [facility] [place]: 09/29/23 08:59 Metoclopramide HCl (Metoclopramide Hcl Inj 5 Mg/Ml 2 Ml Vial) 10 mg IV Q6H PRN PRN Reason: Nausea And Vomiting Stop: 09/27/23 16:35 Metoprolol Succinate (Metoprolol Succ 25mg Ext Rel Tab) [facility] [place]: 09/28/23 08:59 Last Admin: 08/30/23 07:29 Dose: 25 mg Miscellaneous (Carbohydrates For Hypoglycemia ) 15 - 30 gm PO UD PRN PRN Reason: Hypoglycemia Treatment Stop: 09/27/23 17:29 Miscellaneous Information (Pharmacy Glycemic Mgmt Consult) 1 each N/A UD PRN PRN Reason: Consult Stop: 09/27/23 16:35 Miscellaneous Information (Vancomycin Consult Active) 1 each N/A UD PRN PRN Reason: Consult Stop: 09/27/23 16:35 Multivitamins (Multivitamin Tab) [facility] [place]: 09/28/23 08:59 Last Admin: 08/30/23 07:29 Dose: 1 tab Naloxone HCl (Naloxone Hcl 0.4 Mg/1 Ml Vial/Carp) 0.1 mg IV Q5M PRN PRN Reason: Oversedation/Resp Depression Stop: 09/27/23 16:35 Ondansetron HCl (Ondansetron Inj 2 Mg/Ml 2 Ml Vial) 4 mg IV Q6H PRN PRN Reason: Nausea And Vomiting Stop: 09/27/23 16:35 Oxycodone HCl (Oxycodone Hcl Ir 5 Mg Tab (Immediate Release)) 5 mg PO Q6H PRN PRN Reason: Severe Pain (Scale 7, 8, 9,10) Stop: 09/11/23 18:58 Last Admin: 08/30/23 07:31 Dose: 5 mg Pregabalin (Pregabalin 100 Mg Cap) 100 mg PO TID [facility] Stop: 09/27/23 20:59 Last Admin: 08/30/23 08:05 Dose: 100 mg Sennosides (Senna 8.6 Mg Tab) 17.2 mg PO HS [facility] Stop: 09/27/23 20:59 Last Admin: 08/29/23 21:08 Dose: 17.2 mg Sertraline HCl (Sertraline Hcl 50 Mg Tablet) [facility] [place]: 09/28/23 08:59 Last Admin: 08/30/23 07:30 Dose: 150 mg Spironolactone (Spironolactone 12.5 Mg Tab) 12.5 [facility] [place]: 09/28/23 08:59 Last Admin: 08/30/23 07:30 Dose: 12.5 mg Tamsulosin HCl (Tamsulosin Hcl 0.4 Mg Cap) 0.8 mg PO QAM [facility] Stop: 09/28/23 08:59 Last Admin: 08/30/23 07:31 Dose: 0.8 mg Torsemide (Torsemide 100 Mg Tab) [facility] [place]: 09/28/23 08:59 Last Admin: 08/30/23 07:31 Dose: 50 mg Verapamil HCl (Verapamil Hcl 40 Mg Tab) 120 mg PO Q2D [facility] Stop: 09/28/23 08:59 Last Admin: 08/29/23 08:25 Dose: 120 mg (3) DM type 2 (diabetes mellitus, type 2) Diabetes mellitus complication detail: with polyneuropathy Diabetes mellitus complication status: with neurologic complications Diabetes mellitus alf insulin use: with alf use Qualified Code(s): E11.42 - Type 2 diabetes mellitus with diabetic polyneuropathy; Z79.4 - intermediate (current) use of insulin (7) HTN (hypertension) Hypertension type: primary hypertension Qualified Code(s): I10 - Essential (primary) hypertension
[2023-08-30] MEDS: MAGNESIUM OXIDE 400 MG TAB PO SCH (10:06)
[2023-08-30] MEDS: cefTRIAXone SODIUM 2,000 MG/50 ML BAG IV SCH (10:07)
[2023-08-30] MEDS: ADVANCED PROBIOTIC 625 MG CAPSULE PO SCH (13:31)
--- NOTE | 2023-08-30 14:09 | Pharmacy Report ---
Pharmacy Glycemic Short Note 2 - Date of Service August 30, 2023 - Glycemic Short BSG Results (Last 24 hours): 08/29/23 08/29/23 08/30/23 16:47 21:04 06:31 Glucose 97 POC Glucose 196 H 142 H 08/30/23 08/30/23 07:30 11:35 Glucose POC Glucose 93 78 OUTPATIENT ANTIDIABETIC REGIMEN: * Lantus 30 units SQ daily * Ozempic 0.25mg SQ weekly (on Monday) * HbA1c: 7.9% (08/02/23) ASSESSMENT: 08/29 * Patient fasting 93 mg/dL this morning, received 20 units this morning per scale- will need re-evaluated in AM given below goal today * Lunch BSG 78 mg/dl- carb ratio was loosened, adjusted goal range to 120-160 mg/dL 08/28 * Mr Guo is a 72yo diabetic M admitted for TKA. In the OR, joint was found to be infected and TKA was postponed. * Pt received 8mg PO dexamethasone yesterday. * Pt initiated on SQ basal/bolus insulin regimen on admission. * Pharmacy will continue to follow and adjust regimen as indicated. PLAN FOR INPATIENT GLYCEMIC CONTROL: * Basal insulin * Lantus 20 units SQ today, will re-evaluate the dose tomorrow morning based on BSG trends today * Bolus insulin * NovoLog per scale ACHS or Q6hrs while NPO * Goal Range: Low 110 mg/dL - High 140 mg/dL * Correction Factor: 30 mg/dL/unit * Nutritional / Prandial insulin per carb ratio of 1 unit per 15 grams CHO consumed
--- NOTE | 2023-08-30 14:39 | Pharmacy Report ---
Pharmacy PK ABX Note - Date of Service August 30, 2023 - Assessment and Plan Assessment 08/29: * SCr continues to trend upward today 0.9-->1.09-->1.26, therefore obtained early level. * Random level 23 mcg/mL which does predict > 600 mg/L.hr AUC/ALONDRA at steady state, although within goal at current time, given trend upward in SCr will reduce dose with the evening dose tonight. * Additional level to be ordered pending SCr trend 08/28 * Mr Guo is a 72 year old M receiving vancomycin for treatment of R septic knee. Pt was scheduled for TKA and infection was discovered in the OR. Knee replacement deferred. * Pertinent microbiologic data includes: OR cultures pending * PMH includes DM, CKD III, diverticular disease, heart failure, HENRIK on CPAP, hx EtOH abuse Plan Vancomycin * Loading dose: 2000 mg IV x 1 * Maintenance dose: 1000 mg IV every 12 hours * Random level 23.0 mcg/mL expected to exceed target AUC/ALONDRA at steady state, will reduce dose with evening dose tonight * Reduce to 750 mg IV every 12 hours to start at 1800 today * Timing of additional level to be decided pending SCR trend Pharmacy will continue to follow and will adjust dose/frequency as necessary. Thank you. Pharmacy has transitioned to AUC monitoring for vancomycin. AUC/ALONDRA is the preferred PK/PD target and is associated with decreased risk of nephrotoxicity compared to traditional trough targets.
[2023-08-30] MEDS: VANCOMYCIN HCL 750 MG in SODIUM CHLORIDE 0.9% 250 ML IV SCH (17:58)
[2023-08-31] MEDS: VANCOMYCIN LEVEL ONE (06:51)
[2023-08-31 06:58] LABS: Hematocrit (blood only) 34.4 % (42.0-52.0); Hemoglobin 10.1 g/dl (14.0-18.0); Mean Corpuscular Hemoglobin 23.1 pg (25.0-34.0); Mean Corpuscular Hgb Conc 29.4 g/dL (32.0-36.0); Mean Corpuscular Volume 78.5 fL (80.0-100.0); Mean Platelet Volume 8.2 fL (9.4-12.4); Platelet Count 334 K/uL (130-400); RDW Coefficient of Variation 18.3 % (11.5-14.5); RDW Standard Deviation 50.5 fL (36.4-46.3); Red Blood Count 4.38 M/uL (4.70-6.10); White Blood Count 6.73 K/ul (4.8-10.8)
[2023-08-31 07:10] LABS: BUN Creatinine Ratio 28.3 (10-20); Calcium 7.7 mg/dl (8.6-10.3); Est GFR (African American) 75.9 ml/min; Est GFR (Non-African American) 65.5 ml/min; Magnesium 1.6 mg/dl (1.7-2.4)
--- NOTE | 2023-08-31 07:36 | Hospitalist Progress Note ---
Date of Service August 31, 2023 Assessment & Plan (1) Septic arthritis of knee, right: (2) Osteoarthritis of right knee: (3) DM type 2 (diabetes mellitus, type 2): (4) Chronic kidney disease (CKD), stage III (moderate): (5) Mild aortic stenosis: (6) H/O cardiac arrest: (7) HTN (hypertension): (8) Anxiety: Plan Pt is a 72 yo M with PMHx significant for diabetes, hypertension, PMR, OA, pulmonary hypertension, HENRIK and COPD presenting for I& D of right knee. Septic arthritis of knee, right Planned for R TKA, however, there was evidence of infection. Synovial fluid analysis and path pending Continues on vancomycin No evidence of sepsis Cont per orthopedics ID consulted by max, [place] recs Cont. vancomycin, ceftriaxone added as per ID, follow pathology Discussed with surgery - per pathology not likely infection and so plan for possible surgery tmrw. Discussed with ID - would not recommend surgery until cultx finalized -> I messaged surgery number for ID to clarify/ discuss further with each other. Osteoarthritis of right knee Pain control as needed in post op state. Of note, he typically takes hydrocodone 10/325mg QID. As he is now on scheduled Tylenol, was placed on oxycodone q6h to avoid overdos ing on acetaminophen. DM type 2 (diabetes mellitus, type 2) Insulin dependent and on Ozempic. A1C is 7.9 from 08/02/23. glycemic pharmacy consulted pt typically takes 30 to 45 units of lantus once daily and doesn't use short acting insulin. Chronic kidney disease (CKD), stage III (moderate) chronic, stable. BMP in am Mild aortic stenosis ELBERT heard on exam Discontinued maintenance fluids that were running to avoid fluid overload This patient is not very mobile at this point On Torsemide H/O cardiac arrest h/o prior cardiac arrest in Feb 2017 intra-operatively, thought to be due to hypoxia/apnea followed by a bradyarrhythmia and wide complex arrhythmia. Echo and stress test following event did not suggest cardiac etiology. HTN (hypertension) chronic, at goal Cont home meds including Demadex, spironolactone, verapamil, Toprol XL Anxiety chronic, stable. Cont sertraline per home regimen DVT proph: ASA 81mg PO BID per primary team Full Code Dispo-uncertain at this time. Admission and Anticipated Discharge Date Admission Date: August 30, 2023 Subjective Pt seen in follow up of med consult, s/p R knee surgery / poss. septic knee Seen by ID Currently on vancomycin, ceftriaxone added, pathology pending Pt is currently laying in bed in NAD Denies any fever, chills, shortness of breath, chest pain, or abdominal pain + pain in the R knee Discussed with surgery - per pathology not likely infection and so plan for possible surgery tmrw. Discussed with ID - would not recommend surgery until cultx finalized -> I messaged surgery number for ID to clarify/ discuss further together. Review of Systems Review of Systems: All systems reviewed & are unremarkable except as noted in Subjective Physical Exam Physical Exam: General: WD/WN elderly M in NAD. Alert, oriented. No acute distress Skin: No noted rashes or bruises Psych: Appropriate mood and affect Neuro: No gross deficits HEENT: NC/AT CV: RRR, murmur appreciated Resp: Breath sounds clear bilaterally, no increased effort of breathing. Abdomen: Soft, nontender Extremities: R knee with incision, painful w/ movement, no erythema Results & Data Results & Data Vital Signs (Past 12 Hours) Vital Signs Temp Pulse Resp BP Pulse Ox O2 Del Method 08/31/23 07:24 36.9 C 73 18 148/79 H 97 Room Air 08/30/23 21:57 36.3 C L 62 17 154/77 H 98 Room Air Laboratory Results 08/31/23 08/30/23 08/30/23 Range/Units 06:29 20:16 16:48 WBC 6.73 (4.8-10.8) K/ul RBC 4.38 L (4.70-6.10) M/uL Hgb 10.1 L (14.0-18.0) g/dl Hct 34.4 L (42.0-52.0) % MCV 78.5 L (80.0-100.0) fL MCH 23.1 L (25.0-34.0) pg MCHC 29.4 L (32.0-36.0) g/dL RDW Std Deviation 50.5 H (36.4-46.3) fL RDW Coeff of Geovanna 18.3 H (11.5-14.5) % Plt Count 334 (130-400) K/uL MPV 8.2 L (9.4-12.4) fL Sodium 143 (136-145) mmol/L Potassium 4.0 (3.5-5.1) mmol/L Chloride 107 (98-107) mmol/L Carbon Dioxide 28 (21-32) mmol/L Anion Gap 8 (3-11) BUN 32 H (6-23) mg/dl Creatinine 1.13 (0.6-1.4) mg/dl Est Cr Clr Drug Dosing 70.0 ml/min Est GFR ( Amer) 75.9 ml/min Est GFR (Non-Af Amer) 65.5 ml/min BUN/Creatinine Ratio 28.3 H (10-20) Glucose 116 H (70-99(Fasting)) mg/dl POC Glucose 112 H 114 H (70-99) mg/dl Calcium 7.7 L (8.6-10.3) mg/dl Phosphorus 4.0 (2.5-4.9) mg/dl Magnesium 1.6 L (1.7-2.4) mg/dl Random Vancomycin (10-20) mcg/ml 08/30/23 08/30/23 08/30/23 Range/Units 11:51 11:35 06:31 WBC (4.8-10.8) K/ul RBC (4.70-6.10) M/uL Hgb (14.0-18.0) g/dl Hct (42.0-52.0) % MCV (80.0-100.0) fL MCH (25.0-34.0) pg MCHC (32.0-36.0) g/dL RDW Std Deviation (36.4-46.3) fL RDW Coeff of Geovanna (11.5-14.5) % Plt Count (130-400) K/uL MPV (9.4-12.4) fL Sodium 141 (136-145) mmol/L Potassium 3.8 D (3.5-5.1) mmol/L Chloride 108 H (98-107) mmol/L Carbon Dioxide 25 (21-32) mmol/L Anion Gap 8 (3-11) BUN 33 H (6-23) mg/dl Creatinine 1.26 (0.6-1.4) mg/dl Est Cr Clr Drug Dosing 62.8 ml/min Est GFR ( Amer) 66.5 ml/min Est GFR (Non-Af Amer) 57.4 ml/min BUN/Creatinine Ratio 26.2 H (10-20) Glucose 97 (70-99(Fasting)) mg/dl POC Glucose 78 (70-99) mg/dl Calcium 7.6 L (8.6-10.3) mg/dl Phosphorus 4.2 (2.5-4.9) mg/dl Magnesium 1.7 (1.7-2.4) mg/dl Random Vancomycin 23.0 H (10-20) mcg/ml Medications Administered Current Inpatient Medications Acetaminophen (Acetaminophen 500 Mg Tab) 1,000 mg PO Q8 [facility]AL Stop: 09/27/23 21:59 Last Admin: 08/31/23 06:16 Dose: 1,000 mg Aspirin (Aspirin 81 Mg Ectab) 81 mg PO BID [facility] Stop: 09/27/23 20:59 Last Admin: 08/30/23 21:09 Dose: 81 mg Atorvastatin Calcium (Atorvastatin 40 Mg Tab) 40 mg PO QAM [facility] Stop: 09/28/23 08:59 Last Admin: 08/30/23 07:29 Dose: 40 mg Bisacodyl (Bisacodyl 10 Mg Supp) 10 mg [place] DAILY PRN PRN Reason: Constipation Stop: 09/27/23 16:35 Dextrose (Dextrose 50% 50 Ml Syringe) 25 - 50 ml IV UD PRN; Protocol PRN Reason: Hypoglycemia Protocol Stop: 09/27/23 17:29 Docusate Sodium (Docusate Sodium 100 Mg Cap) 100 mg PO BID KAL Stop: 09/27/23 20:59 Last Admin: 08/30/23 21:09 Dose: 100 mg Fluocinonide (Fluocinonide 0.05% Oint 15 Gm Tube) 1 appln EXT BID PRN PRN Reason: Rash Stop: 09/27/23 16:35 Glucagon (Glucagon For Inj 1 Mg Vial) 1 mg IM UD PRN; Protocol PRN Reason: Hypoglycemia Protocol Stop: 09/27/23 17:29 Glucose (Glucose 40% Gel 15 Gm Tube) 15 - 30 gm PO UD PRN; Protocol PRN Reason: Hypoglycemia Protocol Stop: 09/27/23 17:29 Glucose (Glucose 10 Tab/Tube) 4 - 8 tab PO UD PRN; Protocol PRN Reason: Hypoglycemia Protocol Stop: 09/27/23 17:29 Hydromorphone HCl (Hydromorphone Inj 0.5 Mg/0.5 Ml Syr) 0.5 mg IV Q4H PRN PRN Reason: Pain or Pre PT Stop: 09/11/23 16:35 Last Admin: 08/31/23 02:13 Dose: 0.5 mg Ceftriaxone Sodium (Rocephin) 2,000 mg in 50 mls @ 100 mls/hr IV Q24H [facility] Stop: 10/11/23 09:14 Last Infusion: 08/30/23 10:34 Dose: Infused Vancomycin HCl 750 mg/ Sodium (Chloride) 265 mls @ 200 mls/hr IV Q12H [facility] Stop: 10/10/23 05:59 Last Admin: 08/31/23 06:51 Dose: 200 mls/hr Insulin Aspart (Insulin Aspart Per Unit Charge) 0 units SC ACHS [facility] Stop: 09/27/23 17:14 Last Admin: 08/30/23 22:15 Dose: Not Given Lactobacillus Acidophilus (Advanced Probiotic 625 Mg Capsule) 1,250 mg PO DAILY [facility] Stop: 09/29/23 12:29 Last Admin: 08/30/23 13:31 Dose: 1,250 mg Lorazepam (Lorazepam 0.5 Mg Tab) 0.5 mg PO Q24H PRN PRN Reason: Anxiety Stop: 09/27/23 16:35 Magnesium Hydroxide (Magnesium Hydroxide Susp 30 Ml Udc) 30 ml PO Q6H PRN PRN Reason: Constipation Stop: 09/27/23 16:35 Magnesium Oxide (Magnesium Oxide 400 Mg Tab) 400 mg PO BID [facility] Stop: 09/30/23 08:59 Metoclopramide HCl (Metoclopramide Hcl Inj 5 Mg/Ml 2 Ml Vial) 10 mg IV Q6H PRN PRN Reason: Nausea And Vomiting Stop: 09/27/23 16:35 Metoprolol Succinate (Metoprolol Succ 25mg Ext Rel Tab) 25 mg PO QAM [facility] Stop: 09/28/23 08:59 Last Admin: 08/30/23 07:29 Dose: 25 mg Miscellaneous (Carbohydrates For Hypoglycemia ) 15 - 30 gm PO UD PRN PRN Reason: Hypoglycemia Treatment Stop: 09/27/23 17:29 Miscellaneous Information (Pharmacy Glycemic Mgmt Consult) 1 each N/A UD PRN PRN Reason: Consult Stop: 09/27/23 16:35 Miscellaneous Information (Vancomycin Consult Active) 1 each N/A UD PRN PRN Reason: Consult Stop: 09/27/23 16:35 Multivitamins ([facility]itamin Tab) [facility] [place]: 09/28/23 08:59 Last Admin: 08/30/23 07:29 Dose: 1 tab Naloxone HCl (Naloxone Hcl 0.4 Mg/1 Ml Vial/Carp) 0.1 mg IV Q5M PRN PRN Reason: Oversedation/Resp Depression Stop: 09/27/23 16:35 Ondansetron HCl (Ondansetron Inj 2 Mg/Ml 2 Ml Vial) 4 mg IV Q6H PRN PRN Reason: Nausea And Vomiting Stop: 09/27/23 16:35 Oxycodone HCl (Oxycodone Hcl Ir 5 Mg Tab (Immediate Release)) 5 mg PO Q6H PRN PRN Reason: Severe Pain (Scale 7, 8, 9,10) Stop: 09/11/23 18:58 Last Admin: 08/31/23 06:16 Dose: 5 mg Pregabalin (Pregabalin 100 Mg Cap) 100 mg PO TID [facility] Stop: 09/27/23 20:59 Last Admin: 08/30/23 21:10 Dose: 100 mg Sennosides (Senna 8.6 Mg Tab) 17.2 mg PO HS [facility] Stop: 09/27/23 20:59 Last Admin: 08/30/23 21:10 Dose: 17.2 mg Sertraline HCl (Sertraline Hcl 50 Mg Tablet) [facility] [place] Stop: 09/28/23 08:59 Last Admin: 08/30/23 07:30 Dose: 150 mg Spironolactone (Spironolactone 12.5 Mg Tab) 12.5 [facility] [place]: 09/28/23 08:59 Last Admin: 08/30/23 07:30 Dose: 12.5 mg Tamsulosin HCl (Tamsulosin Hcl 0.4 Mg Cap) 0.8 [facility] [place]: 09/28/23 08:59 Last Admin: 08/30/23 07:31 Dose: 0.8 mg Torsemide (Torsemide 100 Mg Tab) 50 [facility] [place]: 09/28/23 08:59 Last Admin: 08/30/23 07:31 Dose: 50 mg Verapamil HCl (Verapamil Hcl 40 Mg Tab) 120 mg PO Q2D [facility] Stop: 09/28/23 08:59 Last Admin: 08/29/23 08:25 Dose: 120 mg (3) DM type 2 (diabetes mellitus, type 2) Diabetes mellitus complication detail: with polyneuropathy Diabetes mellitus complication status: with neurologic complications 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
[2023-08-31] MEDS: MAGNESIUM OXIDE 400 MG TAB PO SCH (07:49)
[2023-08-31] MEDS: LANTUS PER UNIT CHARGE SC SCH (08:31)
--- NOTE | 2023-08-31 12:49 | Orthopedic Progress Note ---
Date of Service August 31, 2023 Assessment & Plan (1) Osteoarthritis of right knee: So far the cultures have not grown anything. I spoke with the pathologist yesterday and he said that the pathology of the tissue did not show enough acute inflammatory cells to make him think that this was an actual infection. I discussed everything with him at bedside. He would like to proceed with a right total knee arthroplasty. I think that is reasonable. He understands the risk, benefits, alternatives to procedures elected proceed. Questions were answered at bedside. Will keep him n.p.o. past midnight tonight and plan to do a standard knee replacement on him tomorrow. George Salazar was seen and examined at bedside this morning. Overall he is doing okay. He is having a lot of soreness in his knee. He has no fever. He has no new complaints.. Review of Systems All systems reviewed & are unremarkable except as noted in HPI & below. Physical Exam Physical examination of his right knee shows the dressing is clean and dry.. Results & Data Results & Data Laboratory Results . Diagnostic Findings . PG Care Time/CCT Total # of Minutes Spent Total Time Spent with Patient: Total time spent is greater than 50% in coordination of care (as documented) at patient's floor/unit and/or counseling patient: Coding Level of Care Code 37704 Post Operative Follow-Up Diagnoses Osteoarthritis of right knee M17.11
--- NOTE | 2023-08-31 13:40 | Infectious Disease Progress Nt ---
Date of Service August 31, 2023 Assessment & Plan (1) Septic arthritis of knee, right: (2) Osteoarthritis of right knee: (3) Status post left knee replacement: Plan This is a 72-year-old male with past medical history of DM2, hypertension, PMR, osteoarthritis, pulmonary hypertension, recent left total knee arthroplasty on 06/09/2023 who presents for evaluation of right knee pain and I & D. He reports chronic bilateral knee pain for years secondary to osteoarthritis for which he has undergone steroid injections.. His Left knee pain improved after Left arthroplasty in 05/2023. 2 weeks post procedure, he noted increasing right knee pain. He received a steroid injection on 06/27/2023. He was subsequently found to have a large right knee effusion and was evaluated by orthopedics. He was scheduled for an elective right knee arthroplasty. He presented on 08/28/23 for right knee arthroplasty. He was found to have a large R knee effusion with erythema around the skin. Per operative report, when the arthrotomy was made there was a large amount of infected appearing synovial fluid from the joint. There was purulent appearing tissue within the knee joint with concern for septic knee. Infectious appearing soft tissue of the synovium was sent for pathology and culture. Per Pathologist report to OR, there was high levels of PMNs in each section ( between 7-30). There appeared to be necrosis and wearing away of the chondral surface. There was concern for an ch ronic infection. Unfortunately no synovial fluid was sent. The tissue was irrigated. He was started on IV vancomycin. OR Cultures and pathology pending. ID consulted for probable right septic knee. On my initial evaluation, he complains of occasional sweats and right knee pain. He reports a slip and fall out of his wheelchair about 3-4 to weeks prior to admission. He denies break in skin, wounds or drainage. He denies fever, chills, nausea, vomiting, abdominal pain,or shortness of breath . Left knee pain is healing well psot prior surgery. He uses a wheelchair to get around. He is HDS. Labs noted for a WBC of 8.07, BUN 27, creatinine 1.09. Micro: Right knee aerobic/anaerobic culture, 08/27: Rare WBCs , no organisms seen, Cultures pending Antibiotics: Ancef 08/27 Vancomycin 08/27ongoing PATHOLOGY 08/27 FINAL DIAGNOSIS A. "Synovium", right knee: - Fibrin and acute inflammatory cells are seen. - Synovial tissue is not identified on microscopy. - Examination of this tissue under polarized light fails to reveal crystal deposition disease. - See comment. B. 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 - Please note that the chronic inflammatory infiltrate is moderate in intensity but the acute inflammatory infiltrate is mild in intensity and is found focally within the tissue. - Examination of this tissue under polarized light fails to reveal crystal deposition disease. Comment: Please note that a sample of part A is removed from the formalin container on August 30, 2023 and prepared is a wet prep. This wet prep consists of two slides. Examination of the slides reveals a fragment of apparent fibrous tissue which is minute and there is no evidence of crystal deposition disease on examination of both slides under polarized light. In sum, there is no evidence of gout or pseudogout in this case despite the presence of "strongly birefringent needle-shaped crystals consistent with uric acid crystals of gout" on a touch preparation of synovial tissue from the left knee # Possible Right [place] septic knee # S/P Left TKA 06/09/23 #H/O Left Hip replacement with hardware # H/O Spinal fusion with Hardware Pathology of R knee synovium showed moderate chronic active hemosiderotic synovitis. No evidence gout or pseudogout. Intraop cx with no organisms on gram stainand CULTURES NGTD but not yet finalized. Recommendations: Continue IV vancomycin per pharmacy protocol and Ceftriaxone 2 g IV daily pending final cultures Follow up Intraoperative cultures Final antibiotic choice and duration will depend on intraoperative cultures. Pathology shows chronic active synovitis. ID will continue to follow Marvin Griggs MD, MPH Infectious Disease [facility], ID Division Call [phone] with questions. Admission and Anticipated Discharge Date Admission Date: August 30, 2023 Subjective This patient recommendation is based on a telemedicine consult request which was completed asynchronously through chart review and information provided by the primary physician. The patient was not seen or examined today. The evaluation is consultative in nature and all patient care and treatment decisions can either be accepted or rejected by the patient's primary hospital-based treating physician using their own independent medical judgment for their patient. Time Spent Reviewing Chart: 11 - 20 minutes Afebrile. Pathology reviewed: - Fibrin and acute inflammatory cells seen as well as moderate chronic active, hemosiderotic synovitis. Intraoperative cultures with no growth so far.but cultures are not finalized Results & Data Vital Signs (Past 12 Hours) Vital Signs Temp Pulse Resp BP Pulse Ox O2 Del Method 08/31/23 07:52 Room Air 08/31/23 07:24 36.9 C 73 18 148/79 H 97 Room Air Laboratory Results Laboratory Results - last 48 hr 08/29/23 08/29/23 08/30/23 16:47 21:04 06:31 WBC 8.33 RBC 4.25 L Hgb 9.7 L Hct 33.4 L MCV 78.6 L MCH 22.8 L MCHC 29.0 L RDW Std Deviation 50.1 H RDW Coeff of Geovanna 18.1 H Plt Count 341 MPV 8.0 L Immature Gran % (Auto) 0.7 Neut % (Auto) 74.7 Lymph % (Auto) 14.9 [place] % (Auto) 8.2 Eos % (Auto) 1.0 Baso % (Auto) 0.5 Neut # (Auto) 6.23 Lymph # (Auto) 1.24 [place] # (Auto) 0.68 H Eos # (Auto) 0.08 Baso # (Auto) 0.04 Immature Gran # (Auto) 0.06 Sodium 141 Potassium 3.8 D Chloride 108 H Carbon Dioxide 25 Anion Gap 8 BUN 33 H Creatinine 1.26 Est Cr Clr Drug Dosing 62.8 Est GFR ( Amer) 66.5 Est GFR (Non-Af Amer) 57.4 BUN/Creatinine Ratio 26.2 H Glucose 97 POC Glucose 196 H 142 H Calcium 7.6 L Phosphorus 4.2 Magnesium 1.7 Random Vancomycin 08/30/23 08/30/23 08/30/23 07:30 11:35 11:51 WBC RBC Hgb Hct MCV MCH MCHC RDW Std Deviation RDW Coeff of Geovanna Plt Count MPV Immature Gran % (Auto) Neut % (Auto) Lymph % (Auto) Rose[place] % (Auto) Eos % (Auto) Baso % (Auto) Neut # (Auto) Lymph # (Auto) [place] # (Auto) Eos # (Auto) Baso # (Auto) Immature Gran # (Auto) Sodium Potassium Chloride Carbon Dioxide Anion Gap BUN Creatinine Est Cr Clr Drug Dosing Est GFR ( Amer) Est GFR (Non-Af Amer) BUN/Creatinine Ratio Glucose POC Glucose 93 78 Calcium Phosphorus Magnesium Random Vancomycin 23.0 H 08/30/23 08/30/23 08/31/23 16:48 20:16 06:29 WBC 6.73 RBC 4.38 L Hgb 10.1 L Hct 34.4 L MCV 78.5 L MCH 23.1 L MCHC 29.4 L RDW Std Deviation 50.5 H RDW Coeff of Geovanna 18.3 H Plt Count 334 MPV 8.2 L Immature Gran % (Auto) Neut % (Auto) Lymph % (Auto) [place] % (Auto) Eos % (Auto) Baso % (Auto) Neut # (Auto) Lymph # (Auto) [place] # (Auto) Eos # (Auto) Baso # (Auto) Immature Gran # (Auto) Sodium 143 Potassium 4.0 Chloride 107 Carbon Dioxide 28 Anion Gap 8 BUN 32 H Creatinine 1.13 Est Cr Clr Drug Dosing 70.0 Est GFR ( Amer) 75.9 Est GFR (Non-Af Amer) 65.5 BUN/Creatinine Ratio 28.3 H Glucose 116 H POC Glucose 114 H 112 H Calcium 7.7 L Phosphorus 4.0 Magnesium 1.6 L Random Vancomycin 08/31/23 08/31/23 07:30 11:20 WBC RBC Hgb Hct MCV MCH MCHC RDW Std Deviation RDW Coeff of Geovanna Plt Count MPV Immature Gran % (Auto) Neut % (Auto) Lymph % (Auto) [place] % (Auto) Eos % (Auto) Baso % (Auto) Neut # (Auto) Lymph # (Auto) [place] # (Auto) Eos # (Auto) Baso # (Auto) Immature Gran # (Auto) Sodium Potassium Chloride Carbon Dioxide Anion Gap BUN Creatinine Est Cr Clr Drug Dosing Est GFR ( Amer) Est GFR (Non-Af Amer) BUN/Creatinine Ratio Glucose POC Glucose 114 H 139 H Calcium Phosphorus Magnesium Random Vancomycin Microbiology 08/28/23 14:40 Knee,Right Gram Stain - Final 08/28/23 14:40 Knee,Right Aerobic and Anaerobic Culture - Preliminary No growth to date. Medications Administered Home Medications Medication Instructions Recorded Confirmed Last Taken folic acid 1 mg tablet 1 mg PO QAM 12/10/18 08/28/23 08/27/23 08:00 tamsulosin 0.4 mg capsule 0.8 mg PO QAM #30 caps 12/10/18 08/28/23 08/28/23 08:30 acetaminophen 500 mg tablet 1,000 mg PO Q6H PRN Pain 01/30/19 08/28/23 08/27/23 10:00 cholecalciferol (vitamin D3) 50 2,000 unit PO QAM 01/30/19 08/28/23 08/27/23 08:00 mcg (2,000 unit) tablet fluocinonide 0.05 % topical 1 applic topical BID PRN Rash 01/30/19 08/28/23 06/08/22 08:00 ointment lorazepam 0.5 mg tablet 0.5 mg PO DAILY PRN Anxiety 01/30/19 08/28/23 03/08/23 pantoprazole 40 mg tablet,delayed 40 mg PO QAM 01/30/19 08/28/23 08/28/23 08:30 release polyethylene glycol 3350 17 17 g PO DAILY PRN Constipation 01/30/19 08/28/23 08/27/23 10:00 gram/dose oral powder (Miralax) pregabalin 100 mg capsule 100 mg PO TID 01/30/19 08/28/23 08/28/23 08:30 spironolactone 25 mg tablet 12.5 mg PO QAM 01/30/19 08/28/23 08/26/23 10:00 verapamil 120 mg tablet 120 mg PO Q2D 01/30/19 08/28/23 08/27/23 10:00 torsemide 100 mg tablet 50 mg PO QAM 12/25/19 08/28/23 08/26/23 10:00 atorvastatin 40 mg tablet 40 mg PO QAM 06/06/22 08/28/23 08/28/23 08:30 semaglutide 0.25 mg or 0.5 mg (2 0.25 mg subcut Q7D 06/06/22 08/28/23 08/18/23 21:00 mg/3 mL) subcutaneous pen injector ([employer]) CPAP Machine #1 ea 09/21/22 08/28/23 Unknown cyanocobalamin (vitamin B-12) 5,000 mcg sublingual QAM 05/24/23 08/28/23 06/08/23 08:00 5,000 mcg sublingual tablet (Vitamin B-12) metoprolol succinate 25 mg 25 mg PO QAM 05/24/23 08/28/23 08/28/23 08:30 tablet,extended release 24 hr (Toprol XL) sertraline 150 mg capsule 150 mg PO QAM 05/24/23 08/28/23 08/28/23 08:30 hydrocodone 10 mg-acetaminophen 1 tab PO Q6H PRN Pain (Scale Score 08/28/23 08/28/23 Unknown 325 mg tablet 7-10) insulin glargine 100 unit/mL (3 30 unit subcut QA 08/28/23 08/28/23 Unknown mL) subcutaneous pen (Lantus Solostar U-100 Insulin) Active Medications Generic Name Dose Route Start Last [facility] Reason Stop Dose Admin Acetaminophen 1,000 mg 08/28/23 22:00 08/31/23 13:13 Acetaminophen 500 Mg Tab PO 09/27/23 21:59 1,000 mg Q8 KAL Administration Aspirin 81 mg 08/28/23 21:00 08/31/23 07:44 Aspirin 81 Mg Ectab PO 09/27/23 20:59 81 mg BID KAL Administration Atorvastatin Calcium 40 mg 08/29/23 09:00 08/31/23 07:44 Atorvastatin 40 Mg Tab PO 09/28/23 08:59 40 mg QAM KAL Administration Docusate Sodium 100 mg 08/28/23 21:00 08/31/23 07:43 Docusate Sodium 100 Mg Cap PO 09/27/23 20:59 100 mg BID KAL Administration Hydromorphone HCl 0.5 mg 08/28/23 16:36 08/31/23 13:13 Hydromorphone Inj 0.5 Mg/0.5 Ml Syr IV 09/11/23 16:35 0.5 mg Q4H PRN Administration Pain or Pre PT Ceftriaxone Sodium 2,000 mg in 50 mls @ 100 mls/hr 08/30/23 09:15 08/31/23 09:11 Rocephin IV 10/11/23 09:14 Infused Q24H KAL Infusion Vancomycin HCl 750 mg/ Sodium 265 mls @ 200 mls/hr 08/30/23 18:00 08/31/23 08:34 Chloride IV 10/10/23 05:59 Infused Q12H KAL Infusion Insulin Aspart 0 units 08/28/23 17:15 08/31/23 12:12 Insulin Aspart Per Unit Charge SC 09/27/23 17:14 Not Given ACHS KAL Insulin Glargine 0 units 08/31/23 09:00 08/31/23 08:31 Lantus Per Unit Charge SC 09/30/23 08:59 20 units QAM KAL Administration Protocol Lactobacillus Acidophilus 1,250 mg 08/30/23 12:30 08/31/23 07:43 Advanced Probiotic 625 Mg Capsule PO 09/29/23 12:29 1,250 mg DAILY KAL Administration Magnesium Oxide 400 mg 08/31/23 09:00 08/31/23 07:49 Magnesium Oxide 400 Mg Tab PO 09/30/23 08:59 400 mg BID KAL Administration Metoprolol Succinate 25 mg 08/29/23 09:00 08/31/23 07:43 Metoprolol Succ 25mg Ext Rel Tab PO 09/28/23 08:59 25 mg QAM KAL Administration Multivitamins 1 tab 08/29/23 09:00 08/31/23 07:44 Multivitamin Tab PO 09/28/23 08:59 1 tab QAM KAL Administration Oxycodone HCl 5 mg 08/28/23 18:59 08/31/23 11:17 Oxycodone Hcl Ir 5 Mg Tab (Immediate Release) PO 09/11/23 18:58 5 mg Q6H PRN Administration Severe Pain (Scale 7, 8, 9,10) Pregabalin 100 mg 08/28/23 21:00 08/31/23 13:13 Pregabalin 100 Mg Cap PO 09/27/23 20:59 100 mg TID KAL Administration Sennosides 17.2 mg 08/28/23 21:00 08/30/23 21:10 Senna 8.6 Mg Tab PO 09/27/23 20:59 17.2 mg HS KAL Administration Sertraline HCl 150 mg 08/29/23 09:00 08/31/23 07:42 Sertraline Hcl 50 Mg Tablet PO 09/28/23 08:59 150 mg QAM KAL Administration Spironolactone 12.5 mg 08/29/23 09:00 08/31/23 07:43 Spironolactone 12.5 Mg Tab PO 09/28/23 08:59 12.5 mg QAM KAL Administration Tamsulosin HCl 0.8 mg 08/29/23 09:00 08/31/23 07:43 Tamsulosin Hcl 0.4 Mg Cap PO 09/28/23 08:59 0.8 mg QAM KAL Administration Torsemide 50 mg 08/29/23 09:00 08/31/23 07:43 Torsemide 100 Mg Tab PO 09/28/23 08:59 50 mg QAM KAL Administration Verapamil HCl 120 mg 08/29/23 09:00 08/31/23 07:42 Verapamil Hcl 40 Mg Tab PO 09/28/23 08:59 120 mg Q2D KAL Administration
[2023-08-31] MEDS: HYDROmorphone INJ 0.5 MG/0.5 ML SYR IV STA (20:22)
[2023-09-01] MEDS ORDERED: Nursing to Pharmacy Communication SCH ×2 (00:45→08:30)
[2023-09-01] MEDS: INSULIN ASPART PER UNIT CHARGE SC SCH ×2 (05:42→09:20)
[2023-09-01] MEDS: VANCOMYCIN LEVEL ONE (05:42)
[2023-09-01] MEDS ORDERED: BUPIVACAINE 0.5 % 5 MG/1 ML PF 10ML VIAL ONE (06:32)
[2023-09-01] MEDS ORDERED: BUPIVACAINE 0.25% PF 30 ML VIAL ONE (06:32)
[2023-09-01 06:47] LABS: Hematocrit (blood only) 32.6 % (42.0-52.0); Hemoglobin 9.7 g/dl (14.0-18.0); Mean Corpuscular Hemoglobin 22.9 pg (25.0-34.0); Mean Corpuscular Hgb Conc 29.8 g/dL (32.0-36.0); Mean Corpuscular Volume 77.1 fL (80.0-100.0); Mean Platelet Volume 8.3 fL (9.4-12.4); Platelet Count 331 K/uL (130-400); RDW Coefficient of Variation 18.6 % (11.5-14.5); Red Blood Count 4.23 M/uL (4.70-6.10); White Blood Count 6.04 K/ul (4.8-10.8)
[2023-09-01 07:07] LABS: BUN Creatinine Ratio 29.4 (10-20); Calcium 7.9 mg/dl (8.6-10.3); Creatinine Clr Calc Pharmacy 77.5 ml/min; Est GFR (African American) 85.9 ml/min; Est GFR (Non-African American) 74.1 ml/min; Phosphorus 3.8 mg/dl (2.5-4.9); Potassium 4.2 mmol/L (3.5-5.1)
--- NOTE | 2023-09-01 08:20 | Orthopedic Progress Note ---
Date of Service September 01, 2023 Assessment & Plan (1) Osteoarthritis of right knee: Unfortunately, the final cultures are not back yet. I spoke with microbiology and they said the final cultures will be back to later tomorrow. I spoke with the pathologist 2 days ago and by looking at the type of inflammatory cells they did not feel that this was necessarily infected. I do want to do my diligence and make sure that the cultures were negative before we proceed with knee replacement surgery. He can have a diet today. Hopefully the cultures will come back negative tomorrow. If they do, we plan to proceed with knee replacement on Monday. George Collins was seen and examined at bedside this morning. Overall he is doing okay. He is having some soreness in the knee. He is feeling fine. He has no complaints.. Review of Systems All systems reviewed & are unremarkable except as noted in HPI & below. Physical Exam On physical examination of the right knee, the dressing is clean and dry. His legs out full extension. He has active dorsiflexion plantarflexion of his right ankle.. Results & Data Results & Data Laboratory Results . Diagnostic Findings . PG Care Time/CCT Total # of Minutes Spent Total Time Spent with Patient: Total time spent is greater than 50% in coordination of care (as documented) at patient's floor/unit and/or counseling patient: Coding Level of Care Code 09305 Post Operative Follow-Up Diagnoses Osteoarthritis of right knee M17.11
[2023-09-01 08:34] LABS: Magnesium 1.6 mg/dl (1.7-2.4)
[2023-09-01] MEDS: LANTUS PER UNIT CHARGE SC SCH ×2 (09:21→21:21)
--- NOTE | 2023-09-01 10:34 | Pharmacy Report ---
Pharmacy PK ABX Note - Date of Service September 01, 2023 - Assessment and Plan Assessment 08/31: Reviewed vancomycin level which is predicting AUC/ALONDRA within therapeutic range, continue current regimen. SCr currently stable. 08/29: * SCr continues to trend upward today 0.9-->1.09-->1.26, therefore obtained early level. * Random level 23 mcg/mL which does predict > 600 mg/L.hr AUC/ALONDRA at steady state, although within goal at current time, given trend upward in SCr will reduce dose with the evening dose tonight. * Additional level to be ordered pending SCr trend 08/28 * Mr Guo is a 72 year old M receiving vancomycin for treatment of R septic knee. Pt was scheduled for TKA and infection was discovered in the OR. Knee replacement deferred. * Pertinent microbiologic data includes: OR cultures pending * PMH includes DM, CKD III, diverticular disease, heart failure, HENRIK on CPAP, hx EtOH abuse Plan Vancomycin * Random level 19.9 mcg/mL expected to acheive target AUC/ALONDRA at steady state * Continue 750 mg IV every 12 hours * Additional level ordered for Mon, will repeat earlier if renal function destabilizes. Pharmacy will continue to follow and will adjust dose/frequency as necessary. Thank you. Pharmacy has transitioned to AUC monitoring for vancomycin. AUC/ALONDRA is the preferred PK/PD target and is associated with decreased risk of nephrotoxicity compared to traditional trough targets.
--- NOTE | 2023-09-01 10:59 | Hospitalist Progress Note ---
Date of Service September 01, 2023 Assessment & Plan (1) Septic arthritis of knee, right: (2) Osteoarthritis of right knee: (3) DM type 2 (diabetes mellitus, type 2): (4) Chronic kidney disease (CKD), stage III (moderate): (5) Mild aortic stenosis: (6) H/O cardiac arrest: (7) HTN (hypertension): (8) Anxiety: Plan Pt is a 72 yo M with PMHx significant for diabetes, hypertension, PMR, OA, pulmonary hypertension, HENRIK and COPD presenting for I& D of right knee. Septic arthritis of knee, right Planned for R TKA, however, there was evidence of infection. Synovial fluid analysis and path pending Continues on vancomycin No evidence of sepsis Cont per orthopedics ID consulted by camden santanas Cont. vancomycin, ceftriaxone added as per ID, follow pathology Discussed with surgery and ID - possible surgery postponed to Monday to have cultx finalized (if cultx negat.) Osteoarthritis of right knee Pain control as needed in post op state. Of note, he typically takes hydrocodone 10/325mg QID. As he is now on scheduled Tylenol, was placed on oxycodone q6h to avoid overdosing on acetaminophen. DM type 2 (diabetes mellitus, type 2) Insulin dependent and on Ozempic. A1C is 7.9 from 08/02/23. glycemic pharmacy consulted pt typically takes 30 to 45 units of lantus once daily and doesn't use short acting insulin. Chronic kidney disease (CKD), stage III (moderate) chronic, stable. BMP in am Mild aortic stenosis ELBERT heard on exam Discontinued maintenance fluids that were running to avoid fluid overload This patient is not very mobile at this point On Torsemide H/O cardiac arrest h/o prior cardiac arrest in Feb 2017 intra-operatively, thought to be due to hypoxia/apnea followed by a bradyarrhythmia and wide complex arrhythmia. Echo and stress test following event did not suggest cardiac etiology. HTN (hypertension) chronic, at goal Cont home meds including Demadex, spironolactone, verapamil, Toprol XL Anxiety chronic, stable. Cont sertraline per home regimen DVT proph: ASA 81mg PO BID per primary team Full Code Dispo-uncertain at this time. Admission and Anticipated Discharge Date Admission Date: August 30, 2023 Subjective Pt seen in follow up of med consult, s/p R knee surgery / poss. septic knee Seen by ID Currently on vancomycin, ceftriaxone Pt is currently laying in bed in NAD Denies any fever, chills, shortness of breath, chest pain, or abdominal pain + pain in the R knee Discussed with surgery and ID - possible surgery postponed to Monday to have cultx finalized (if cultx negat.) Review of Systems Review of Systems: All systems reviewed & are unremarkable except as noted in Subjective Physical Exam Physical Exam: General: WD/WN elderly M in NAD. Alert, oriented. No acute distress Skin: No noted rashes or bruises Psych: Appropriate mood and affect Neuro: No gross deficits HEENT: NC/AT CV: RRR, murmur appreciated Resp: Breath sounds clear bilaterally, no increased effort of breathing. Abdomen: Soft, nontender Extremities: R knee with incision, painful w/ movement, no erythema Results & Data Results & Data Vital Signs (Past 12 Hours) Vital Signs Temp Pulse Resp BP Pulse Ox O2 Del Method 09/01/23 08:50 76 17 151/77 H 97 Room Air 09/01/23 07:14 36.5 C 72 16 137/75 96 Room Air Laboratory Results 09/01/23 09/01/23 09/01/23 Range/Units 08:33 05:35 05:18 WBC 6.04 (4.8-10.8) K/ul RBC 4.23 L (4.70-6.10) M/uL Hgb 9.7 L (14.0-18.0) g/dl Hct 32.6 L (42.0-52.0) % MCV 77.1 L (80.0-100.0) fL MCH 22.9 L (25.0-34.0) pg MCHC 29.8 L (32.0-36.0) g/dL RDW Std Deviation 50.0 H (36.4-46.3) fL RDW Coeff of Geovanna 18.6 H (11.5-14.5) % Plt Count 331 (130-400) K/uL MPV 8.3 L (9.4-12.4) fL Sodium 140 (136-145) mmol/L Potassium 4.2 (3.5-5.1) mmol/L Chloride 103 (98-107) mmol/L Carbon Dioxide 28 (21-32) mmol/L Anion Gap 9 (3-11) BUN 30 H (6-23) mg/dl Creatinine 1.02 (0.6-1.4) mg/dl Est Cr Clr Drug Dosing 77.5 ml/min Est GFR ( Amer) 85.9 ml/min Est GFR (Non-Af Amer) 74.1 ml/min BUN/Creatinine Ratio 29.4 H (10-20) Glucose 123 H (70-99(Fasting)) mg/dl POC Glucose 153 H 127 H (70-99) mg/dl Calcium 7.9 L (8.6-10.3) mg/dl Phosphorus 3.8 (2.5-4.9) mg/dl Magnesium 1.6 L (1.7-2.4) mg/dl Random Vancomycin 19.9 (10-20) mcg/ml Blood Type Antibody Screen 09/01/23 08/31/23 08/31/23 Range/Units 00:06 20:40 16:31 WBC (4.8-10.8) K/ul RBC (4.70-6.10) M/uL Hgb (14.0-18.0) g/dl Hct (42.0-52.0) % MCV (80.0-100.0) fL MCH (25.0-34.0) pg MCHC (32.0-36.0) g/dL RDW Std Deviation (36.4-46.3) fL RDW Coeff of Geovanna (11.5-14.5) % Plt Count (130-400) K/uL MPV (9.4-12.4) fL Sodium (136-145) mmol/L Potassium (3.5-5.1) mmol/L Chloride (98-107) mmol/L Carbon Dioxide (21-32) mmol/L Anion Gap (3-11) BUN (6-23) mg/dl Creatinine (0.6-1.4) mg/dl Est Cr Clr Drug Dosing ml/min Est GFR ( Amer) ml/min Est GFR (Non-Af Amer) ml/min BUN/Creatinine Ratio (10-20) Glucose (70-99(Fasting)) mg/dl POC Glucose 126 H 80 74 (70-99) mg/dl Calcium (8.6-10.3) mg/dl Phosphorus (2.5-4.9) mg/dl Magnesium (1.7-2.4) mg/dl Random Vancomycin (10-20) mcg/ml Blood Type Antibody Screen 08/31/23 08/31/23 08/31/23 Range/Units 16:29 15:01 11:20 WBC (4.8-10.8) K/ul RBC (4.70-6.10) M/uL Hgb (14.0-18.0) g/dl Hct (42.0-52.0) % MCV (80.0-100.0) fL MCH (25.0-34.0) pg MCHC (32.0-36.0) g/dL RDW Std Deviation (36.4-46.3) fL RDW Coeff of Geovanna (11.5-14.5) % Plt Count (130-400) K/uL MPV (9.4-12.4) fL Sodium (136-145) mmol/L Potassium (3.5-5.1) mmol/L Chloride (98-107) mmol/L Carbon Dioxide (21-32) mmol/L Anion Gap (3-11) BUN (6-23) mg/dl Creatinine (0.6-1.4) mg/dl Est Cr Clr Drug Dosing ml/min Est GFR ( Amer) ml/min Est GFR (Non-Af Amer) ml/min BUN/Creatinine Ratio (10-20) Glucose (70-99(Fasting)) mg/dl POC Glucose 65 L* 139 H (70-99) mg/dl Calcium (8.6-10.3) mg/dl Phosphorus (2.5-4.9) mg/dl Magnesium (1.7-2.4) mg/dl Random Vancomycin (10-20) mcg/ml Blood Type A Positive Antibody Screen NEGATIVE Medications Administered Current Inpatient Medications Acetaminophen (Acetaminophen 500 Mg Tab) 1,000 mg PO Q8 KAL Stop: 09/27/23 21:59 Last Admin: 09/01/23 05:42 Dose: 1,000 mg Aspirin (Aspirin 81 Mg Ectab) 81 mg PO BID KAL Stop: 09/27/23 20:59 Last Admin: 09/01/23 08:55 Dose: 81 mg Atorvastatin Calcium (Atorvastatin 40 Mg Tab) 40 mg PO QAM KAL Stop: 09/28/23 08:59 Last Admin: 09/01/23 08:55 Dose: 40 mg Bisacodyl (Bisacodyl 10 Mg Supp) 10 mg [place] DAILY PRN PRN Reason: Constipation Stop: 09/27/23 16:35 Dextrose (Dextrose 50% 50 Ml Syringe) 25 - 50 ml IV UD PRN; Protocol PRN Reason: Hypoglycemia Protocol Stop: 09/27/23 17:29 Docusate Sodium (Docusate Sodium 100 Mg Cap) 100 mg PO BID KAL Stop: 09/27/23 20:59 Last Admin: 09/01/23 08:55 Dose: 100 mg Fluocinonide (Fluocinonide 0.05% Oint 15 Gm Tube) 1 appln EXT BID PRN PRN Reason: Rash Stop: 09/27/23 16:35 Glucagon (Glucagon For Inj 1 Mg Vial) 1 mg IM UD PRN; Protocol PRN Reason: Hypoglycemia Protocol Stop: 09/27/23 17:29 Glucose (Glucose 40% Gel 15 Gm Tube) 15 - 30 gm PO UD PRN; Protocol PRN Reason: Hypoglycemia Protocol Stop: 09/27/23 17:29 Glucose (Glucose 10 Tab/Tube) 4 - 8 tab PO UD PRN; Protocol PRN Reason: Hypoglycemia Protocol Stop: 09/27/23 17:29 Hydromorphone HCl (Hydromorphone Inj 0.5 Mg/0.5 Ml Syr) 0.5 mg IV Q4H PRN PRN Reason: Pain or Pre PT Stop: 09/11/23 16:35 Last Admin: 09/01/23 05:30 Dose: 0.5 mg Ceftriaxone Sodium (Rocephin) 2,000 mg in 50 mls @ 100 mls/hr IV Q24H KAL Stop: 10/11/23 09:14 Last Infusion: 09/01/23 09:13 Dose: Infused Vancomycin HCl 750 mg/ Sodium (Chloride) 265 mls @ 200 mls/hr IV Q12H KAL Stop: 10/10/23 05:59 Last Infusion: 09/01/23 07:15 Dose: Infused Insulin Aspart (Insulin Aspart Per Unit Charge) 0 units SC ACHS KAL Stop: 10/01/23 08:44 Last Admin: 09/01/23 09:20 Dose: 3 units Insulin Glargine (Lantus Per Unit Charge) 10 units SC DAILY KAL Stop: 10/01/23 08:59 Last Admin: 09/01/23 09:21 Dose: 10 units Lactobacillus Acidophilus (Advanced Probiotic 625 Mg Capsule) 1,250 mg PO DAILY [facility] Stop: 09/29/23 12:29 Last Admin: 09/01/23 08:53 Dose: 1,250 mg Lorazepam (Lorazepam 0.5 Mg Tab) 0.5 mg PO Q24H PRN PRN Reason: Anxiety Stop: 09/27/23 16:35 Magnesium Hydroxide (Magnesium Hydroxide Susp 30 Ml Udc) 30 ml PO Q6H PRN PRN Reason: Constipation Stop: 09/27/23 16:35 Magnesium Oxide (Magnesium Oxide 400 Mg Tab) 400 mg PO BID [facility] Stop: 09/30/23 08:59 Last Admin: 09/01/23 08:54 Dose: 400 mg Metoclopramide HCl (Metoclopramide Hcl Inj 5 Mg/Ml 2 Ml Vial) 10 mg IV Q6H PRN PRN Reason: Nausea And Vomiting Stop: 09/27/23 16:35 Metoprolol Succinate (Metoprolol Succ 25mg Ext Rel Tab) 25 mg PO QAM [facility] Stop: 09/28/23 08:59 Last Admin: 09/01/23 08:56 Dose: 25 mg Miscellaneous (Carbohydrates For Hypoglycemia ) 15 - 30 gm PO UD PRN PRN Reason: Hypoglycemia Treatment Stop: 09/27/23 17:29 Miscellaneous Information (Pharmacy Glycemic Mgmt Consult) 1 each N/A UD PRN PRN Reason: Consult Stop: 09/27/23 16:35 Miscellaneous Information (Vancomycin Consult Active) 1 each N/A UD PRN PRN Reason: Consult Stop: 09/27/23 16:35 Multivitamins (Multivitamin Tab) 1 tab PO QAM [facility] Stop: 09/28/23 08:59 Last Admin: 09/01/23 08:55 Dose: 1 tab Naloxone HCl (Naloxone Hcl 0.4 Mg/1 Ml Vial/Carp) 0.1 mg IV Q5M PRN PRN Reason: Oversedation/Resp Depression Stop: 09/27/23 16:35 Ondansetron HCl (Ondansetron Inj 2 Mg/Ml 2 Ml Vial) 4 mg IV Q6H PRN PRN Reason: Nausea And Vomiting Stop: 09/27/23 16:35 Oxycodone HCl (Oxycodone Hcl Ir 5 Mg Tab (Immediate Release)) 5 mg PO Q6H PRN PRN Reason: Severe Pain (Scale 7, 8, 9,10) Stop: 09/11/23 18:58 Last Admin: 09/01/23 09:19 Dose: 5 mg Pregabalin (Pregabalin 100 Mg Cap) 100 mg PO TID [facility] Stop: 09/27/23 20:59 Last Admin: 09/01/23 08:48 Dose: 100 mg Sennosides (Senna 8.6 Mg Tab) 17.2 mg PO HS [facility] Stop: 09/27/23 20:59 Last Admin: 08/31/23 20:22 Dose: 17.2 mg Sertraline HCl (Sertraline Hcl 50 Mg Tablet) [facility] [place] [facility] Stop: 09/28/23 08:59 Last Admin: 09/01/23 08:54 Dose: 150 mg Spironolactone (Spironolactone 12.5 Mg Tab) 12.5 [facility] [place] Stop: 09/28/23 08:59 Last Admin: 09/01/23 09:23 Dose: 12.5 mg Tamsulosin HCl (Tamsulosin Hcl 0.4 Mg Cap) 0.8 [facility] [place] Stop: 09/28/23 08:59 Last Admin: 09/01/23 08:53 Dose: 0.8 mg Torsemide (Torsemide 100 Mg Tab) 50 mg PO QAM [facility] Stop: 09/28/23 08:59 Last Admin: 09/01/23 08:51 Dose: 50 mg Verapamil HCl (Verapamil Hcl 40 Mg Tab) 120 mg PO Q2D [facility] Stop: 09/28/23 08:59 Last Admin: 08/31/23 07:42 Dose: 120 mg (3) DM type 2 (diabetes mellitus, type 2) Diabetes mellitus complication detail: with polyneuropathy Diabetes mellitus complication status: with neurologic complications Diabetes mellitus terminal make up operator insulin use: with custodial use Qualified Code(s): E11.42 - Type 2 diabetes mellitus with diabetic polyneuropathy; Z79.4 - long-term (current) use of insulin (7) HTN (hypertension) Hypertension type: primary hypertension Qualified Code(s): I10 - Essential (primary) hypertension
[2023-09-01] MEDS ORDERED: INSULIN ASPART PER UNIT CHARGE SC SCH (11:30)
--- NOTE | 2023-09-01 13:19 | Infectious Disease Progress Nt ---
Date of Service September 01, 2023 Assessment & Plan (1) Septic arthritis of knee, right: (2) Osteoarthritis of right knee: (3) Status post left knee replacement: Plan This is a 72-year-old male with past medical history of DM2, hypertension, PMR, osteoarthritis, pulmonary hypertension, recent left total knee arthroplasty on 06/09/2023 who presents for evaluation of right knee pain and I & D. He reports chronic bilateral knee pain for years secondary to osteoarthritis for which he has undergone steroid injections. His Left knee pain improved after Left arthroplasty in 05/2023. 2 weeks post procedure, he noted increasing right knee pain. He received a steroid injection on 06/27/2023. He was subsequently found to have a large right knee effusion and was evaluated by orthopedics. He was scheduled for an elective right knee arthroplasty. He presented on 08/28/23 for right knee arthroplasty. He was found to have a large R knee effusion with erythema around the skin per report. Per operative report, when the arthrotomy was made there was a large amount of infected ap pearing synovial fluid from the joint. There was purulent appearing tissue within the knee joint with concern for septic knee. Soft tissue of the synovium was sent for pathology and culture. Per Pathologist report to OR, there was high levels of PMNs in each section ( "between 7-30"). There appeared to be necrosis and wearing away of the chondral surface. There was concern for a chronic infection. Unfortunately, no synovial fluid was sent. The tissue was irrigated. He was started on IV vancomycin. OR Cultures NGTD. Pathology shows chronic active, hemosiderotic synovitis. ID consulted for probable right septic knee. On my initial evaluation, he complains of occasional sweats and right knee pain. He reports a slip and fall out of his wheelchair about 3-4 to weeks prior to ad mission. He denies break in skin, wounds or drainage. He denies fever, chills, nausea, vomiting, abdominal pain,or shortness of breath . Left knee pain is healing well psot prior surgery. He uses a wheelchair to get around. He is HDS. Labs noted for a WBC of 8.07, BUN 27, creatinine 1.09. Micro: Right knee aerobic/anaerobic culture, 08/27: Rare WBCs , no organisms seen, Cultures pending Antibiotics: Ancef /6 Vancomycin 08/27ongoing PATHOLOGY 08/27 FINAL DIAGNOSIS A. "Synovium", right knee: - Fibrin and acute inflammatory cells are seen. - Synovial tissue is not identified on microscopy. - Examination of this tissue under polarized light fails to reveal crystal deposition disease. - See comment. B. 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 - Please note that the chronic inflammatory infiltrate is moderate in intensity but the acute inflammatory infiltrate is mild in intensity and is found focally within the tissue. - Examination of this tissue under polarized light fails to reveal crystal d eposition disease. In sum, thereis no evidence of gout or pseudogout in this case despite the presence of "strongly birefringent needle-shaped crystals consistent with uric acid crystals of gout" on a touch preparation of synovial tissue from the left knee # Possible Right [place] septic knee # S/P Left TKA , no issues #H/O Left Hip replacement with hardware # H/O Spinal fusion with Hardware Pathology of R knee synovium showed moderate chronic active hemosiderotic synovitis. No evidence gout or pseudogout. Intraop cx with no organisms on gram stain and CULTURES NGTD but not yet finalized. RTKA on hold pending final OR and rule out of infection. . Recommendations: Continue IV vancomycin per pharmacy protocol and Ceftriaxone 2 g IV daily pending final cultures Follow up Intraoperative cultures Final antibiotic choice and duration will depend on intraoperative cultures. So far cx sterile. Pathology shows chronic active synovitis. ID will continue to follow. ID will not round over the weekend. Please call covering provider at [phone] with questions. Marvin Griggs MD, MPH Infectious Disease ID [facility], ID Division Admission and Anticipated Discharge Date Admission Date: August 30, 2023 Subjective This patient recommendation is based on a telemedicine consult request which was completed asynchronously through chart review and information provided by the primary physician. The patient was not seen or examined today. The evaluation is consultative in nature and all patient care and treatment decisions can either be accepted or rejected by the patient's primary hospital-based treating physician using their own independent medical judgment for their patient. Time Spent Reviewing Chart: 11 - 20 minutes Afebrile. Intraop cx NGTD Results & Data Vital Signs (Past 12 Hours) Vital Signs Temp Pulse Resp BP Pulse Ox O2 Del Method 09/01/23 08:50 76 17 151/77 H 97 Room Air 09/01/23 07:14 36.5 C 72 16 137/75 96 Room Air Laboratory Results Short CBC 09/01/23 Range/Units 05:18 WBC 6.04 (4.8-10.8) K/ul Hgb 9.7 L (14.0-18.0) g/dl Hct 32.6 L (42.0-52.0) % Plt Count 331 (130-400) K/uL BMP 09/01/23 05:18 Sodium 140 Potassium 4.2 Chloride 103 Carbon Dioxide 28 BUN 30 H Creatinine 1.02 Glucose 123 H Calcium 7.9 L Microbiology 08/28/23 14:40 Knee,Right Gram Stain - Final 08/28/23 14:40 Knee,Right Aerobic and Anaerobic Culture - Preliminary No growth to date. Medications Administered Home Medications Medication Instructions Recorded Confirmed Last Taken folic acid 1 mg tablet 1 mg PO QAM 12/10/18 08/28/23 08/27/23 08:00 tamsulosin 0.4 mg capsule 0.8 mg PO QAM #30 caps 12/10/18 08/28/23 08/28/23 08:30 acetaminophen 500 mg tablet 1,000 mg PO Q6H PRN Pain 01/30/19 08/28/23 08/27/23 10:00 cholecalciferol (vitamin D3) 50 2,000 unit PO QAM 01/30/19 08/28/23 08/27/23 08:00 mcg (2,000 unit) tablet fluocinonide 0.05 % topical 1 applic topical BID PRN Rash 01/30/19 08/28/23 06/08/22 08:00 ointment lorazepam 0.5 mg tablet 0.5 mg PO DAILY PRN Anxiety 01/30/19 08/28/23 03/08/23 pantoprazole 40 mg tablet,delayed 40 mg PO QAM 01/30/19 08/28/23 08/28/23 08:30 release polyethylene glycol 3350 17 17 g PO DAILY PRN Constipation 01/30/19 08/28/23 08/27/23 10:00 gram/dose oral powder (Miralax) pregabalin 100 mg capsule 100 mg PO TID 01/30/19 08/28/23 08/28/23 08:30 spironolactone 25 mg tablet 12.5 mg PO QAM 01/30/19 08/28/23 08/26/23 10:00 verapamil 120 mg tablet 120 mg PO Q2D 01/30/19 08/28/23 08/27/23 10:00 torsemide 100 mg tablet 50 mg PO QAM 12/25/19 08/28/23 08/26/23 10:00 atorvastatin 40 mg tablet 40 mg PO QA 06/06/22 08/28/23 08/28/23 08:30 semaglutide 0.25 mg or 0.5 mg (2 0.25 mg subcut Q7D 06/06/22 08/28/23 08/18/23 21:00 mg/3 mL) subcutaneous pen injector (Ozempic) CPAP Machine #1 ea 09/21/22 08/28/23 Unknown cyanocobalamin (vitamin B-12) 5,000 mcg sublingual QA 05/24/23 08/28/23 06/08/23 08:00 5,000 mcg sublingual tablet (Vitamin B-12) metoprolol succinate 25 mg 25 mg PO QA 05/24/23 08/28/23 08/28/23 08:30 tablet,extended release 24 hr (Toprol XL) sertraline 150 mg capsule 150 mg PO QA 05/24/23 08/28/23 08/28/23 08:30 hydrocodone 10 mg-acetaminophen 1 tab PO Q6H PRN Pain (Scale Score 08/28/23 08/28/23 Unknown 325 mg tablet 7-10) insulin glargine 100 unit/mL (3 30 unit subcut QA 08/28/23 08/28/23 Unknown mL) subcutaneous pen (Lantus Solostar U-100 Insulin) Active Medications Generic Name Dose Route Start Last Admin Trade Name Freq PRN Reason Stop Dose Admin Acetaminophen 1,000 mg 08/28/23 22:00 05/10/24 05:42 Acetaminophen 500 Mg Tab PO 09/27/23 21:59 1,000 mg Q8 KAL Administration Aspirin 81 mg 08/28/23 21:00 09/01/23 08:55 Aspirin 81 Mg Ectab PO 09/27/23 20:59 81 mg BID KAL Administration Atorvastatin Calcium 40 mg 08/29/23 09:00 09/01/23 08:55 Atorvastatin 40 Mg Tab PO 09/28/23 08:59 40 mg QAM KAL Administration Docusate Sodium 100 mg 08/28/23 21:00 09/01/23 08:55 Docusate Sodium 100 Mg Cap PO 09/27/23 20:59 100 mg BID KAL Administration Hydromorphone HCl 0.5 mg 08/28/23 16:36 09/01/23 10:58 Hydromorphone Inj 0.5 Mg/0.5 Ml Syr IV 09/11/23 16:35 0.5 mg Q4H PRN Administration Pain or Pre PT Ceftriaxone Sodium 2,000 mg in 50 mls @ 100 mls/hr 08/30/23 09:15 09/01/23 09:13 Rocephin IV 10/11/23 09:14 Infused Q24H KAL Infusion Vancomycin HCl 750 mg/ Sodium 265 mls @ 200 mls/hr 08/30/23 18:00 09/01/23 07:15 Chloride IV 10/10/23 05:59 Infused Q12H KAL Infusion Insulin Aspart 0 units 09/01/23 08:45 09/01/23 11:55 Insulin Aspart Per Unit Charge SC 10/01/23 08:44 7 units ACHS KAL Administration Lactobacillus Acidophilus 1,250 mg 08/30/23 12:30 09/01/23 08:53 Advanced Probiotic 625 Mg Capsule PO 09/29/23 12:29 1,250 mg DAILY KAL Administration Magnesium Oxide 400 mg 08/31/23 09:00 09/01/23 08:54 Magnesium Oxide 400 Mg Tab PO 09/30/23 08:59 400 mg BID KAL Administration Metoprolol Succinate 25 mg 08/29/23 09:00 09/01/23 08:56 Metoprolol Succ 25mg Ext Rel Tab PO 09/28/23 08:59 25 mg QAM KAL Administration Multivitamins 1 tab 08/29/23 09:00 09/01/23 08:55 Multivitamin Tab PO 09/28/23 08:59 1 tab QAM KAL Administration Oxycodone HCl 5 mg 08/28/23 18:59 09/01/23 09:19 Oxycodone Hcl Ir 5 Mg Tab (Immediate Release) PO 09/11/23 18:58 5 mg Q6H PRN Administration Severe Pain (Scale 7, 8, 9,10) Pregabalin 100 mg 08/28/23 21:00 09/01/23 08:48 Pregabalin 100 Mg Cap PO 09/27/23 20:59 100 mg TID KAL Administration Sennosides 17.2 mg 08/28/23 21:00 08/31/23 20:22 Senna 8.6 Mg Tab PO 09/27/23 20:59 17.2 mg HS KAL Administration Sertraline HCl 150 mg 08/29/23 09:00 09/01/23 08:54 Sertraline Hcl 50 Mg Tablet PO 09/28/23 08:59 150 mg QAM KAL Administration Spironolactone 12.5 mg 08/29/23 09:00 09/01/23 09:23 Spironolactone 12.5 Mg Tab PO 09/28/23 08:59 12.5 mg QAM KAL Administration Tamsulosin HCl 0.8 mg 08/29/23 09:00 09/01/23 08:53 Tamsulosin Hcl 0.4 Mg Cap PO 09/28/23 08:59 0.8 mg QAM KAL Administration Torsemide 50 mg 08/29/23 09:00 09/01/23 08:51 Torsemide 100 Mg Tab PO 09/28/23 08:59 50 mg QAM KAL Administration Verapamil HCl 120 mg 08/29/23 09:00 08/31/23 07:42 Verapamil Hcl 40 Mg Tab PO 09/28/23 08:59 120 mg Q2D KAL Administration
--- NOTE | 2023-09-01 14:33 | Pharmacy Report ---
Pharmacy Glycemic Short Note 2 - Date of Service September 01, 2023 - Glycemic Short BSG Results (Last 24 hours): 08/31/23 08/31/23 08/31/23 16:29 16:31 20:40 Glucose POC Glucose 65 L* 74 80 09/01/23 09/01/23 09/01/23 00:06 05:18 05:35 Glucose 123 H POC Glucose 126 H 127 H 09/01/23 09/01/23 08:33 11:43 Glucose POC Glucose 153 H 194 H OUTPATIENT ANTIDIABETIC REGIMEN: * Lantus 30 units SQ daily * Ozempic 0.25mg SQ weekly (on Monday) * HbA1c: 7.9% (08/02/23) ASSESSMENT: 08/31 * Dennis received 22 units of insulin yesterday (20 were bolus) * Fasting BSG this AM within goal range, will split up basal insulin and allow for a reduced dosage if BSGs are below goal range. * Carbohydrate ratio adjusted, diet ordered at breakfast, TKA rescheduled for Monday. 08/29 * Patient fasting 93 mg/dL this morning, received 20 units this morning per scale- will need re-evaluated in AM given below goal today * Lunch BSG 78 mg/dl- carb ratio was loosened, adjusted goal range to 120-160 mg/dL 08/28 * Mr Guo is a 72yo diabetic M admitted for TKA. In the OR, joint was found to be infected and TKA was postponed. * Pt received 8mg PO dexamethasone yesterday. * Pt initiated on SQ basal/bolus insulin regimen on admission. * Pharmacy will continue to follow and adjust regimen as indicated. PLAN FOR INPATIENT GLYCEMIC CONTROL: * Basal insulin * Lantus 5-10 units SC BID based on BSG (BSG <120mg/dL 5 units, BSG 120 or greater 10 units) * Bolus insulin * NovoLog per scale ACHS or Q6hrs while NPO * Goal Range: Low 110 mg/dL - High 140 mg/dL * Correction Factor: 30 mg/dL/unit * Nutritional / Prandial insulin per carb ratio of 1 unit per 12 grams CHO consumed
[2023-09-02 06:56] LABS: Hematocrit (blood only) 32.4 % (42.0-52.0); Hemoglobin 9.5 g/dl (14.0-18.0); Mean Corpuscular Hemoglobin 22.8 pg (25.0-34.0); Mean Corpuscular Hgb Conc 29.3 g/dL (32.0-36.0); Mean Corpuscular Volume 77.7 fL (80.0-100.0); Mean Platelet Volume 8.1 fL (9.4-12.4); Platelet Count 285 K/uL (130-400); RDW Coefficient of Variation 18.4 % (11.5-14.5); RDW Standard Deviation 50.7 fL (36.4-46.3); Red Blood Count 4.17 M/uL (4.70-6.10); White Blood Count 5.99 K/ul (4.8-10.8)
[2023-09-02 07:20] LABS: BUN Creatinine Ratio 27.4 (10-20); Calcium 8.1 mg/dl (8.6-10.3); Creatinine Clr Calc Pharmacy 83.3 ml/min; Est GFR (African American) 93.6 ml/min; Est GFR (Non-African American) 80.8 ml/min; Magnesium 1.6 mg/dl (1.7-2.4); Phosphorus 3.7 mg/dl (2.5-4.9); Potassium 4.1 mmol/L (3.5-5.1)
--- NOTE | 2023-09-02 08:07 | Orthopedic Progress Note ---
Date of Service September 02, 2023 Assessment & Plan (1) Osteoarthritis of right knee: So far the cultures have come back negative. They have showed no growth. I spoke with the pathologist and he did not see the acute inflammatory cells that he would normally expect in an infected knee. The final culture should come back today. If the final cultures come back negative then we will likely proceed with a right knee replacement on Monday. George Collins was seen and examined at bedside this morning. Overall he is doing fairly well. He is still having some pain in the right knee but is no longer swollen. He has no new complaints.. Review of Systems All systems reviewed & are unremarkable except as noted in HPI & below. Physical Exam On physical examination of the right knee, there is no effusion. The knee actually looks really good. There is no erythema or signs of infection. There is no drainage.. Results & Data Results & Data Laboratory Results . Diagnostic Findings . PG Care Time/CCT Total # of Minutes Spent Total Time Spent with Patient: Total time spent is greater than 50% in coordination of care (as documented) at patient's floor/unit and/or counseling patient: Coding Level of Care Code 28822 Post Operative Follow-Up Diagnoses Osteoarthritis of right knee M17.11
--- NOTE | 2023-09-02 08:19 | Hospitalist Progress Note ---
Date of Service September 02, 2023 Assessment & Plan (1) Septic arthritis of knee, right: (2) Osteoarthritis of right knee: (3) DM type 2 (diabetes mellitus, type 2): (4) Chronic kidney disease (CKD), stage III (moderate): (5) Mild aortic stenosis: (6) H/O cardiac arrest: (7) HTN (hypertension): (8) Anxiety: Plan Pt is a 72 yo M with PMHx significant for diabetes, hypertension, PMR, OA, pulmonary hypertension, HENRIK and COPD presenting for I& D of right knee. Septic arthritis of knee, right Planned for R TKA, however, there was evidence of infection. Synovial fluid analysis and path pending Continues on vancomycin No evidence of sepsis Cont per orthopedics ID consulted by camden santanas Cont. vancomycin, ceftriaxone added as per ID, follow pathology Discussed with surgery and ID - possible surgery postponed to Monday to have cultx finalized (if cultx negat.) Osteoarthritis of right knee Pain control as needed in post op state. Of note, he typically takes hydrocodone 10/325mg QID. As he is now on scheduled Tylenol, was placed on oxycodone q6h to avoid overdosing on acetaminophen. DM type 2 (diabetes mellitus, type 2) Insulin dependent and on Ozempic. A1C is 7.9 from 08/02/23. glycemic pharmacy consulted pt typically takes 30 to 45 units of lantus once daily and doesn't use short acting insulin. Chronic kidney disease (CKD), stage III (moderate) chronic, stable. BMP in am Mild aortic stenosis ELBERT heard on exam Discontinued maintenance fluids that were running to avoid fluid overload This patient is not very mobile at this point On Torsemide H/O cardiac arrest h/o prior cardiac arrest in Feb 2017 intra-operatively, thought to be due to hypoxia/apnea followed by a bradyarrhythmia and wide complex arrhythmia. Echo and stress test following event did not suggest cardiac etiology. HTN (hypertension) chronic, at goal Cont home meds including Demadex, spironolactone, verapamil, Toprol XL Anxiety chronic, stable. Cont sertraline per home regimen DVT proph: ASA 81mg PO BID per primary team Full Code Dispo-uncertain at this time. Admission and Anticipated Discharge Date Admission Date: August 30, 2023 Subjective Pt seen in follow up of med consult, s/p R knee surgery / poss. septic knee Seen by ID Currently on vancomycin, ceftriaxone Pt is currently sitting up in chair in NAD Denies any fever, chills, shortness of breath, chest pain, or abdominal pain + pain in the R knee Discussed with surgery and ID yesterday - possible surgery postponed to Monday to have cultx finalized (if cultx negat.) Review of Systems Review of Systems: All systems reviewed & are unremarkable except as noted in Subjective Physical Exam Physical Exam: General: WD/WN elderly M in NAD. Alert, oriented. No acute distress Skin: No noted rashes or bruises Psych: Appropriate mood and affect Neuro: No gross deficits HEENT: NC/AT CV: RRR, murmur appreciated Resp: Breath sounds clear bilaterally, no increased effort of breathing. Abdomen: Soft, nontender Extremities: R knee with incision, painful w/ movement, no erythema Results & Data Results & Data Vital Signs (Past 12 Hours) Vital Signs Temp Pulse Resp BP Pulse Ox O2 Del Method 09/02/23 07:31 36.8 C 62 16 129/72 95 Room Air 09/01/23 21:00 Room Air Laboratory Results 09/02/23 09/02/23 09/01/23 Range/Units 07:41 06:21 20:27 WBC 5.99 (4.8-10.8) K/ul RBC 4.17 L (4.70-6.10) M/uL Hgb 9.5 L (14.0-18.0) g/dl Hct 32.4 L (42.0-52.0) % MCV 77.7 L (80.0-100.0) fL MCH 22.8 L (25.0-34.0) pg MCHC 29.3 L (32.0-36.0) g/dL RDW Std Deviation 50.7 H (36.4-46.3) fL RDW Coeff of Geovanna 18.4 H (11.5-14.5) % Plt Count 285 (130-400) K/uL MPV 8.1 L (9.4-12.4) fL Sodium 139 (136-145) mmol/L Potassium 4.1 (3.5-5.1) mmol/L Chloride 103 (98-107) mmol/L Carbon Dioxide 28 (21-32) mmol/L Anion Gap 8 (3-11) BUN 26 H (6-23) mg/dl Creatinine 0.95 (0.6-1.4) mg/dl Est Cr Clr Drug Dosing 83.3 ml/min Est GFR ( Amer) 93.6 ml/min Est GFR (Non-Af Amer) 80.8 ml/min BUN/Creatinine Ratio 27.4 H (10-20) Glucose 118 H (70-99(Fasting)) mg/dl POC Glucose 127 H 124 H (70-99) mg/dl Calcium 8.1 L (8.6-10.3) mg/dl Phosphorus 3.7 (2.5-4.9) mg/dl Magnesium 1.6 L (1.7-2.4) mg/dl 09/01/23 09/01/23 09/01/23 Range/Units 16:36 11:43 08:33 WBC (4.8-10.8) K/ul RBC (4.70-6.10) M/uL Hgb (14.0-18.0) g/dl Hct (42.0-52.0) % MCV (80.0-100.0) fL MCH (25.0-34.0) pg MCHC (32.0-36.0) g/dL RDW Std Deviation (36.4-46.3) fL RDW Coeff of Geovanna (11.5-14.5) % Plt Count (130-400) K/uL MPV (9.4-12.4) fL Sodium (136-145) mmol/L Potassium (3.5-5.1) mmol/L Chloride (98-107) mmol/L Carbon Dioxide (21-32) mmol/L Anion Gap (3-11) BUN (6-23) mg/dl Creatinine (0.6-1.4) mg/dl Est Cr Clr Drug Dosing ml/min Est GFR ( Amer) ml/min Est GFR (Non-Af Amer) ml/min BUN/Creatinine Ratio (10-20) Glucose (70-99(Fasting)) mg/dl POC Glucose 184 H 194 H 153 H (70-99) mg/dl Calcium (8.6-10.3) mg/dl Phosphorus (2.5-4.9) mg/dl Magnesium (1.7-2.4) mg/dl 09/01/23 Range/Units 05:18 WBC (4.8-10.8) K/ul RBC (4.70-6.10) M/uL Hgb (14.0-18.0) g/dl Hct (42.0-52.0) % MCV (80.0-100.0) fL MCH (25.0-34.0) pg MCHC (32.0-36.0) g/dL RDW Std Deviation (36.4-46.3) fL RDW Coeff of Geovanna (11.5-14.5) % Plt Count (130-400) K/uL MPV (9.4-12.4) fL Sodium (136-145) mmol/L Potassium (3.5-5.1) mmol/L Chloride (98-107) mmol/L Carbon Dioxide (21-32) mmol/L Anion Gap (3-11) BUN (6-23) mg/dl Creatinine (0.6-1.4) mg/dl Est Cr Clr Drug Dosing ml/min Est GFR ( Amer) ml/min Est GFR (Non-Af Amer) ml/min BUN/Creatinine Ratio (10-20) Glucose (70-99(Fasting)) mg/dl POC Glucose (70-99) mg/dl Calcium (8.6-10.3) mg/dl Phosphorus (2.5-4.9) mg/dl Magnesium 1.6 L (1.7-2.4) mg/dl Medications Administered Current Inpatient Medications Acetaminophen (Acetaminophen 500 Mg Tab) 1,000 mg PO Q8 KAL Stop: 09/27/23 21:59 Last Admin: 09/02/23 05:08 Dose: 1,000 mg Aspirin (Aspirin 81 Mg Ectab) 81 mg PO BID KAL Stop: 09/27/23 20:59 Last Admin: 09/02/23 08:09 Dose: 81 mg Atorvastatin Calcium (Atorvastatin 40 Mg Tab) 40 mg PO QAM KAL Stop: 09/28/23 08:59 Last Admin: 09/02/23 08:10 Dose: 40 mg Bisacodyl (Bisacodyl 10 Mg Supp) 10 mg CA DAILY PRN PRN Reason: Constipation Stop: 09/27/23 16:35 Dextrose (Dextrose 50% 50 Ml Syringe) 25 - 50 ml IV UD PRN; Protocol PRN Reason: Hypoglycemia Protocol Stop: 09/27/23 17:29 Docusate Sodium (Docusate Sodium 100 Mg Cap) 100 mg PO BID [facility] Stop: 09/27/23 20:59 Last Admin: 09/02/23 08:08 Dose: 100 mg Fluocinonide (Fluocinonide 0.05% Oint 15 Gm Tube) 1 appln EXT BID PRN PRN Reason: Rash Stop: 09/27/23 16:35 Glucagon (Glucagon For Inj 1 Mg Vial) 1 mg IM UD PRN; Protocol PRN Reason: Hypoglycemia Protocol Stop: 09/27/23 17:29 Glucose (Glucose 40% Gel 15 Gm Tube) 15 - 30 gm PO UD PRN; Protocol PRN Reason: Hypoglycemia Protocol Stop: 09/27/23 17:29 Glucose (Glucose 10 Tab/Tube) 4 - 8 tab PO UD PRN; Protocol PRN Reason: Hypoglycemia Protocol Stop: 09/27/23 17:29 Hydromorphone HCl (Hydromorphone Inj 0.5 Mg/0.5 Ml Syr) 0.5 mg IV Q4H PRN PRN Reason: Pain or Pre PT Stop: 09/11/23 16:35 Last Admin: 09/02/23 04:00 Dose: 0.5 mg Ceftriaxone Sodium (Rocephin) 2,000 mg in 50 mls @ 100 mls/hr IV Q24H [facility] Stop: 10/11/23 09:14 Last Admin: 09/02/23 08:01 Dose: 100 mls/hr Vancomycin HCl 750 mg/ Sodium (Chloride) 265 mls @ 200 mls/hr IV Q12H [facility] Stop: 10/10/23 05:59 Last Infusion: 09/02/23 06:45 Dose: Infused Magnesium Sulfate/Dextrose (Magnesium Sulfate / D5w) 1 gm in 100 mls @ 50 mls/hr IV ONE ONE Stop: 09/02/23 10:17 Insulin Aspart (Insulin Aspart Per Unit Charge) 0 units SC ACHS [facility] Stop: 10/01/23 08:44 Last Admin: 09/01/23 21:22 Dose: Not Given Insulin Glargine (Lantus Per Unit Charge) 0 units SC BID [facility]; Protocol Stop: 10/01/23 20:59 Last Admin: 09/01/23 21:21 Dose: 10 units Lactobacillus Acidophilus (Advanced Probiotic 625 Mg Capsule) 1,250 mg PO DAILY [facility] Stop: 09/29/23 12:29 Last Admin: 09/02/23 08:11 Dose: 1,250 mg Lorazepam (Lorazepam 0.5 Mg Tab) 0.5 mg PO Q24H PRN PRN Reason: Anxiety Stop: 09/27/23 16:35 Magnesium Hydroxide (Magnesium Hydroxide Susp 30 Ml Udc) 30 ml PO Q6H PRN PRN Reason: Constipation Stop: 09/27/23 16:35 Magnesium Oxide (Magnesium Oxide 400 Mg Tab) 400 mg PO BID [facility] Stop: 09/30/23 08:59 Last Admin: 09/02/23 08:10 Dose: 400 mg Metoclopramide HCl (Metoclopramide Hcl Inj 5 Mg/Ml 2 Ml Vial) 10 mg IV Q6H PRN PRN Reason: Nausea And Vomiting Stop: 09/27/23 16:35 Metoprolol Succinate (Metoprolol Succ 25mg Ext Rel Tab) 25 mg PO QAM [facility] Stop: 09/28/23 08:59 Last Admin: 09/02/23 08:08 Dose: 25 mg Miscellaneous (Carbohydrates For Hypoglycemia ) 15 - 30 gm PO UD PRN PRN Reason: Hypoglycemia Treatment Stop: 09/27/23 17:29 Miscellaneous Information (Pharmacy Glycemic Mgmt Consult) 1 each N/A UD PRN PRN Reason: Consult Stop: 09/27/23 16:35 Miscellaneous Information (Vancomycin Consult Active) 1 each N/A UD PRN PRN Reason: Consult Stop: 09/27/23 16:35 Multivitamins (Multivitamin Tab) 1 tab PO QAM [facility] Stop: 09/28/23 08:59 Last Admin: 09/02/23 08:12 Dose: 1 tab Naloxone HCl (Naloxone Hcl 0.4 Mg/1 Ml Vial/Carp) 0.1 mg IV Q5M PRN PRN Reason: Oversedation/Resp Depression Stop: 09/27/23 16:35 Ondansetron HCl (Ondansetron Inj 2 Mg/Ml 2 Ml Vial) 4 mg IV Q6H PRN PRN Reason: Nausea And Vomiting Stop: 09/27/23 16:35 Oxycodone HCl (Oxycodone Hcl Ir 5 Mg Tab (Immediate Release)) 5 mg PO Q6H PRN PRN Reason: Severe Pain (Scale 7, 8, 9,10) Stop: 09/11/23 18:58 Last Admin: 09/02/23 05:09 Dose: 5 mg Pregabalin (Pregabalin 100 Mg Cap) 100 mg PO TID [facility] Stop: 09/27/23 20:59 Last Admin: 09/01/23 21:21 Dose: 100 mg Sennosides (Senna 8.6 Mg Tab) 17.2 mg PO HS [facility] Stop: 09/27/23 20:59 Last Admin: 09/01/23 21:16 Dose: 17.2 mg Sertraline HCl (Sertraline Hcl 50 Mg Tablet) 150 mg PO [facility] Stop: 09/28/23 08:59 Last Admin: 09/02/23 08:11 Dose: 150 mg Spironolactone (Spironolactone 12.5 Mg Tab) 12.5 mg PO [facility] Stop: 09/28/23 08:59 Last Admin: 09/02/23 08:10 Dose: 12.5 mg Tamsulosin HCl (Tamsulosin Hcl 0.4 Mg Cap) 0.8 mg PO [facility] Stop: 09/28/23 08:59 Last Admin: 09/02/23 08:13 Dose: 0.8 mg Torsemide (Torsemide 100 Mg Tab) 50 mg PO [facility] Stop: 09/28/23 08:59 Last Admin: 09/02/23 08:08 Dose: 50 mg Verapamil HCl (Verapamil Hcl 40 Mg Tab) 120 mg PO Q2D [facility] Stop: 09/28/23 08:59 Last Admin: 08/31/23 07:42 Dose: 120 mg (3) DM type 2 (diabetes mellitus, type 2) Diabetes mellitus group home insulin use: with group home use Diabetes mellitus complication status: with neurologic complications Diabetes mellitus complication detail: with polyneuropathy Qualified Code(s): E11.42 - Type 2 diabetes mellitus with diabetic polyneuropathy; Z79.4 - intermediate manager (current) use of insulin (7) HTN (hypertension) Hypertension type: primary hypertension Qualified Code(s): I10 - Essential (primary) hypertension
[2023-09-02] MEDS: MAGNESIUM SULFATE / D5W 1 GM/100 ML BAG IV ONE (09:39)
[2023-09-03 05:59] LABS: Hematocrit (blood only) 31.6 % (42.0-52.0); Hemoglobin 9.3 g/dl (14.0-18.0); Mean Corpuscular Hemoglobin 22.7 pg (25.0-34.0); Mean Corpuscular Hgb Conc 29.4 g/dL (32.0-36.0); Mean Corpuscular Volume 77.1 fL (80.0-100.0); Mean Platelet Volume 8.2 fL (9.4-12.4); Platelet Count 281 K/uL (130-400); RDW Coefficient of Variation 18.3 % (11.5-14.5); RDW Standard Deviation 50.2 fL (36.4-46.3)
[2023-09-03 06:16] LABS: BUN Creatinine Ratio 30.4 (10-20); Calcium 8.2 mg/dl (8.6-10.3); Creatinine Clr Calc Pharmacy 77.5 ml/min; Est GFR (African American) 85.9 ml/min; Est GFR (Non-African American) 74.1 ml/min; Magnesium 1.8 mg/dl (1.7-2.4)
[2023-09-03] MEDS: MAGNESIUM HYDROXIDE SUSP 30 ML UDC PO PRN (06:29)
--- NOTE | 2023-09-03 09:57 | Orthopedic Progress Note ---
Date of Service September 03, 2023 Assessment & Plan (1) Osteoarthritis of right knee: Fortunately, the tissue cultures came back negative. I was able to get good tissue samples from areas that were in direct contact with the effusion. At this point a fairly confident that the knee is not infected. I think it is reasonable to proceed with a right total knee arthroplasty tomorrow. He will be n.p.o. past midnight tonight. George Salazar was seen and examined at bedside this morning. Overall is doing fairly well. Is not having too much pain in the right knee. He was able to get some sleep last night. Has no complaints.. Review of Systems All systems reviewed & are unremarkable except as noted in HPI & below. Physical Exam On physical examination of the right knee, the dressing is clean and dry. His legs out full extension.. Results & Data Results & Data Laboratory Results . Diagnostic Findings . PG Care Time/CCT Total # of Minutes Spent Total Time Spent with Patient: Total time spent is greater than 50% in coordination of care (as documented) at patient's floor/unit and/or counseling patient: Coding Level of Care Code 81960 Post Operative Follow-Up Diagnoses Osteoarthritis of right knee M17.11
--- NOTE | 2023-09-03 11:01 | Hospitalist Progress Note ---
Date of Service September 03, 2023 Assessment & Plan (1) Septic arthritis of knee, right: (2) Osteoarthritis of right knee: (3) DM type 2 (diabetes mellitus, type 2): (4) Chronic kidney disease (CKD), stage III (moderate): (5) Mild aortic stenosis: (6) H/O cardiac arrest: (7) HTN (hypertension): (8) Anxiety: Plan Pt is a 72 yo M with PMHx significant for diabetes, hypertension, PMR, OA, pulmonary hypertension, HENRIK and COPD presenting for I& D of right knee. Septic arthritis of knee, right Planned for R TKA, however, there was evidence of infection. Synovial fluid analysis and path pending Continues on vancomycin No evidence of sepsis Cont per orthopedics ID consulted by camden santanas Cont. vancomycin, ceftriaxone added as per ID, follow pathology Discussed with surgery and ID - possible surgery postponed to Monday to have cultx finalized (cultx now negat.) Osteoarthritis of right knee Pain control as needed in post op state. Of note, he typically takes hydrocodone 10/325mg QID. As he is now on scheduled Tylenol, was placed on oxycodone q6h to avoid overdosing on acetaminophen. DM type 2 (diabetes mellitus, type 2) Insulin dependent and on Ozempic. A1C is 7.9 from 08/02/23. glycemic pharmacy consulted pt typically takes 30 to 45 units of lantus once daily and doesn't use short acting insulin. Chronic kidney disease (CKD), stage III (moderate) chronic, stable. BMP in am Mild aortic stenosis ELBERT heard on exam Discontinued maintenance fluids that were running to avoid fluid overload This patient is not very mobile at this point On Torsemide H/O cardiac arrest h/o prior cardiac arrest in Feb 2017 intra-operatively, thought to be due to hypoxia/apnea followed by a bradyarrhythmia and wide complex arrhythmia. Echo and stress test following event did not suggest cardiac etiology. HTN (hypertension) chronic, at goal Cont home meds including Demadex, spironolactone, verapamil, Toprol XL Anxiety chronic, stable. Cont sertraline per home regimen DVT proph: ASA 81mg PO BID per primary team Full Code Dispo-uncertain at this time. Admission and Anticipated Discharge Date Admission Date: August 30, 2023 Subjective Pt seen in follow up of med consult, s/p R knee surgery / poss. septic knee Seen by ID Currently on vancomycin, ceftriaxone Pt is currently sitting up in chair in NAD Denies any fever, chills, shortness of breath, chest pain, or abdominal pain + pain in the R knee Likely plan for surgery tmrw Review of Systems Review of Systems: All systems reviewed & are unremarkable except as noted in Subjective Physical Exam Physical Exam: General: WD/WN elderly M in NAD. Alert, oriented. No acute distress Skin: No noted rashes or bruises Psych: Appropriate mood and affect Neuro: No gross deficits HEENT: NC/AT CV: RRR, murmur appreciated Resp: Breath sounds clear bilaterally, no increased effort of breathing. Abdomen: Soft, nontender Extremities: R knee with incision, painful w/ movement, no erythema Results & Data Results & Data Vital Signs (Past 12 Hours) Vital Signs Temp Pulse Resp BP Pulse Ox O2 Del Method 09/03/23 07:16 36.5 C 77 16 131/70 95 Room Air Laboratory Results 09/03/23 09/03/23 09/02/23 Range/Units 07:48 05:28 20:33 WBC 7.10 (4.8-10.8) K/ul RBC 4.10 L (4.70-6.10) M/uL Hgb 9.3 L (14.0-18.0) g/dl Hct 31.6 L (42.0-52.0) % MCV 77.1 L (80.0-100.0) fL MCH 22.7 L (25.0-34.0) pg MCHC 29.4 L (32.0-36.0) g/dL RDW Std Deviation 50.2 H (36.4-46.3) fL RDW Coeff of Geovanna 18.3 H (11.5-14.5) % Plt Count 281 (130-400) K/uL MPV 8.2 L (9.4-12.4) fL Sodium 138 (136-145) mmol/L Potassium 4.0 (3.5-5.1) mmol/L Chloride 100 (98-107) mmol/L Carbon Dioxide 29 (21-32) mmol/L Anion Gap 9 (3-11) BUN 31 H (6-23) mg/dl Creatinine 1.02 (0.6-1.4) mg/dl Est Cr Clr Drug Dosing 77.5 ml/min Est GFR ( Amer) 85.9 ml/min Est GFR (Non-Af Amer) 74.1 ml/min BUN/Creatinine Ratio 30.4 H (10-20) Glucose 123 H (70-99(Fasting)) mg/dl POC Glucose 130 H 141 H (70-99) mg/dl Calcium 8.2 L (8.6-10.3) mg/dl Phosphorus 4.0 (2.5-4.9) mg/dl Magnesium 1.8 (1.7-2.4) mg/dl 09/02/23 09/02/23 Range/Units 16:28 11:31 WBC (4.8-10.8) K/ul RBC (4.70-6.10) M/uL Hgb (14.0-18.0) g/dl Hct (42.0-52.0) % MCV (80.0-100.0) fL MCH (25.0-34.0) pg MCHC (32.0-36.0) g/dL RDW Std Deviation (36.4-46.3) fL RDW Coeff of Geovanna (11.5-14.5) % Plt Count (130-400) K/uL MPV (9.4-12.4) fL Sodium (136-145) mmol/L Potassium (3.5-5.1) mmol/L Chloride (98-107) mmol/L Carbon Dioxide (21-32) mmol/L Anion Gap (3-11) BUN (6-23) mg/dl Creatinine (0.6-1.4) mg/dl Est Cr Clr Drug Dosing ml/min Est GFR ( Amer) ml/min Est GFR (Non-Af Amer) ml/min BUN/Creatinine Ratio (10-20) Glucose (70-99(Fasting)) mg/dl POC Glucose 168 H 165 H (70-99) mg/dl Calcium (8.6-10.3) mg/dl Phosphorus (2.5-4.9) mg/dl Magnesium (1.7-2.4) mg/dl Medications Administered Current Inpatient Medications Acetaminophen (Acetaminophen 500 Mg Tab) 1,000 mg PO Q8 [facility] Stop: 09/27/23 21:59 Last Admin: 09/03/23 05:01 Dose: 1,000 mg Aspirin (Aspirin 81 Mg Ectab) 81 mg PO BID [facility] Stop: 09/27/23 20:59 Last Admin: 09/03/23 08:04 Dose: 81 mg Atorvastatin Calcium (Atorvastatin 40 Mg Tab) 40 mg PO QAM [facility] Stop: 09/28/23 08:59 Last Admin: 09/03/23 08:07 Dose: 40 mg Bisacodyl (Bisacodyl 10 Mg Supp) 10 mg SC DAILY PRN PRN Reason: Constipation Stop: 09/27/23 16:35 Dextrose (Dextrose 50% 50 Ml Syringe) 25 - 50 ml IV UD PRN; Protocol PRN Reason: Hypoglycemia Protocol Stop: 09/27/23 17:29 Docusate Sodium (Docusate Sodium 100 Mg Cap) 100 mg PO BID KAL Stop: 09/27/23 20:59 Last Admin: 09/03/23 08:04 Dose: 100 mg Fluocinonide (Fluocinonide 0.05% Oint 15 Gm Tube) 1 appln EXT BID PRN PRN Reason: Rash Stop: 09/27/23 16:35 Glucagon (Glucagon For Inj 1 Mg Vial) 1 mg IM UD PRN; Protocol PRN Reason: Hypoglycemia Protocol Stop: 09/27/23 17:29 Glucose (Glucose 40% Gel 15 Gm Tube) 15 - 30 gm PO UD PRN; Protocol PRN Reason: Hypoglycemia Protocol Stop: 09/27/23 17:29 Glucose (Glucose 10 Tab/Tube) 4 - 8 tab PO UD PRN; Protocol PRN Reason: Hypoglycemia Protocol Stop: 09/27/23 17:29 Hydromorphone HCl (Hydromorphone Inj 0.5 Mg/0.5 Ml Syr) 0.5 mg IV Q4H PRN PRN Reason: Pain or Pre PT Stop: 09/11/23 16:35 Last Admin: 09/03/23 09:57 Dose: 0.5 mg Ceftriaxone Sodium (Rocephin) 2,000 mg in 50 mls @ 100 mls/hr IV Q24H [facility] Stop: 10/11/23 09:14 Last Infusion: 09/03/23 08:30 Dose: Infused Vancomycin HCl 750 mg/ Sodium (Chloride) 265 mls @ 200 mls/hr IV Q12H [facility] Stop: 10/10/23 05:59 Last Infusion: 09/03/23 06:27 Dose: Infused Magnesium Sulfate/Dextrose (Magnesium Sulfate / D5w) 1 gm in 100 mls @ 50 mls/hr IV ONE ONE Stop: 09/03/23 12:59 Insulin Aspart (Insulin Aspart Per Unit Charge) 0 units SC ACHS [facility] Stop: 10/01/23 08:44 Last Admin: 09/03/23 08:17 Dose: 4 units Insulin Glargine (Lantus Per Unit Charge) 0 units SC BID [facility]; Protocol Stop: 10/01/23 20:59 Last Admin: 09/03/23 08:17 Dose: 10 units Lactobacillus Acidophilus (Advanced Probiotic 625 Mg Capsule) 1,250 mg PO DAILY [facility] Stop: 09/29/23 12:29 Last Admin: 09/03/23 08:06 Dose: 1,250 mg Lorazepam (Lorazepam 0.5 Mg Tab) 0.5 mg PO Q24H PRN PRN Reason: Anxiety Stop: 09/27/23 16:35 Magnesium Hydroxide (Magnesium Hydroxide Susp 30 Ml Udc) 30 ml PO Q6H PRN PRN Reason: Constipation Stop: 09/27/23 16:35 Last Admin: 09/03/23 06:29 Dose: 30 ml Magnesium Oxide (Magnesium Oxide 400 Mg Tab) 400 mg PO BID [facility] Stop: 09/30/23 08:59 Last Admin: 09/03/23 08:03 Dose: 400 mg Metoclopramide HCl (Metoclopramide Hcl Inj 5 Mg/Ml 2 Ml Vial) 10 mg IV Q6H PRN PRN Reason: Nausea And Vomiting Stop: 09/27/23 16:35 Metoprolol Succinate (Metoprolol Succ 25mg Ext Rel Tab) 25 mg PO QAM [facility] Stop: 09/28/23 08:59 Last Admin: 09/03/23 08:06 Dose: 25 mg Miscellaneous (Carbohydrates For Hypoglycemia ) 15 - 30 gm PO UD PRN PRN Reason: Hypoglycemia Treatment Stop: 09/27/23 17:29 Miscellaneous Information (Pharmacy Glycemic Mgmt Consult) 1 each N/A UD PRN PRN Reason: Consult Stop: 09/27/23 16:35 Miscellaneous Information (Vancomycin Consult Active) 1 each N/A UD PRN PRN Reason: Consult Stop: 09/27/23 16:35 Multivitamins (Multivitamin Tab) 1 tab PO QAM [facility] Stop: 09/28/23 08:59 Last Admin: 09/03/23 08:04 Dose: 1 tab Naloxone HCl (Naloxone Hcl 0.4 Mg/1 Ml Vial/Carp) 0.1 mg IV Q5M PRN PRN Reason: Oversedation/Resp Depression Stop: 09/27/23 16:35 Ondansetron HCl (Ondansetron Inj 2 Mg/Ml 2 Ml Vial) 4 mg IV Q6H PRN PRN Reason: Nausea And Vomiting Stop: 09/27/23 16:35 Oxycodone HCl (Oxycodone Hcl Ir 5 Mg Tab (Immediate Release)) 5 mg PO Q6H PRN PRN Reason: Severe Pain (Scale 7, 8, 9,10) Stop: 09/11/23 18:58 Last Admin: 09/03/23 05:01 Dose: 5 mg Pregabalin (Pregabalin 100 Mg Cap) 100 mg PO TID [facility] Stop: 09/27/23 20:59 Last Admin: 09/03/23 08:16 Dose: 100 mg Sennosides (Senna 8.6 Mg Tab) 17.2 mg PO [facility] Stop: 09/27/23 20:59 Last Admin: 09/02/23 20:46 Dose: 17.2 mg Sertraline HCl (Sertraline Hcl 50 Mg Tablet) [address] [facility] Stop: 09/28/23 08:59 Last Admin: 09/03/23 08:07 Dose: 150 mg Spironolactone (Spiron[facility]act[facility] 12.5 Mg Tab) [facility] [place]: 09/28/23 08:59 Last Admin: 09/03/23 08:05 Dose: 12.5 mg Tamsulosin HCl (Tamsulosin Hcl 0.4 Mg Cap) [facility] Stop: 09/28/23 08:59 Last Admin: 09/03/23 08:08 Dose: 0.8 mg Torsemide (Torsemide 100 Mg Tab) [facility] Stop: 09/28/23 08:59 Last Admin: 09/03/23 08:05 Dose: 50 mg Verapamil HCl (Verapamil Hcl 40 Mg Tab) 120 mg PO Q2D [facility] Stop: 09/28/23 08:59 Last Admin: 09/02/23 09:48 Dose: 120 mg (3) DM type 2 (diabetes mellitus, type 2) Diabetes mellitus complication detail: with polyneuropathy Diabetes mellitus complication status: with neurologic complications Diabetes mellitus superintendent drilling insulin use: with correction use Qualified Code(s): E11.42 - Type 2 diabetes mellitus with diabetic polyneuropathy; Z79.4 - skilled nursing (current) use of insulin (7) HTN (hypertension) Hypertension type: primary hypertension Qualified Code(s): I10 - Essential (primary) hypertension
[2023-09-03] MEDS: MAGNESIUM SULFATE / D5W 1 GM/100 ML BAG IV ONE (11:37)
[2023-09-04 05:55] LABS: Hematocrit (blood only) 31.5 % (42.0-52.0); Hemoglobin 9.3 g/dl (14.0-18.0); Mean Corpuscular Hemoglobin 22.6 pg (25.0-34.0); Mean Corpuscular Hgb Conc 29.5 g/dL (32.0-36.0); Mean Corpuscular Volume 76.6 fL (80.0-100.0); Mean Platelet Volume 8.3 fL (9.4-12.4); Platelet Count 278 K/uL (130-400); RDW Coefficient of Variation 18.2 % (11.5-14.5); RDW Standard Deviation 49.6 fL (36.4-46.3); Red Blood Count 4.11 M/uL (4.70-6.10); White Blood Count 7.58 K/ul (4.8-10.8)
[2023-09-04 06:10] LABS: BUN Creatinine Ratio 26.2 (10-20); Calcium 8.6 mg/dl (8.6-10.3); Creatinine Clr Calc Pharmacy 64.8 ml/min; Est GFR (African American) 69.2 ml/min; Est GFR (Non-African American) 59.7 ml/min; Magnesium 1.9 mg/dl (1.7-2.4); Phosphorus 4.1 mg/dl (2.5-4.9); Potassium 4.3 mmol/L (3.5-5.1)
[2023-09-04] MEDS ORDERED: ROPIVACAINE 0.5% 5 MG/ML 30 ML VIAL ONE (07:10)
[2023-09-04] MEDS ORDERED: BUPIVACAINE 0.5 % 5 MG/1 ML PF 10ML VIAL ONE (07:10)
--- NOTE | 2023-09-04 08:22 | Pharmacy Report ---
Pharmacy PK ABX Note - Date of Service September 04, 2023 - Assessment and Plan Assessment 09/03: Vancomycin level associated with therapeutic AUC/ALONDRA of 568. SCr rising slightly again. Will continue current dose but recheck SCr tomorrow. Knee culture finalized as negative today. Surgery anticipated. ID consulted. 08/31: Reviewed vancomycin level which is predicting AUC/ALONDRA within therapeutic range, continue current regimen. SCr currently stable. 08/29: * SCr continues to trend upward today 0.9-->1.09-->1.26, therefore obtained early level. * Random level 23 mcg/mL which does predict > 600 mg/L.hr AUC/ALONDRA at steady state, although within goal at current time, given trend upward in SCr will reduce dose with the evening dose tonight. * Additional level to be ordered pending SCr trend 08/28 * Mr Guo is a 72 year old M receiving vancomycin for treatment of R septic knee. Pt was scheduled for TKA and infection was discovered in the OR. Knee replacement deferred. * Pertinent microbiologic data includes: OR cultures pending * PMH includes DM, CKD III, diverticular disease, heart failure, HENRIK on CPAP, hx EtOH abuse Plan Vancomycin * Random level 17.1 mcg/mL expected to achieve target AUC/ALONDRA at steady state * Continue 750 mg IV every 12 hours * Additional levels pending duration of therapy and trend in SCr Pharmacy will continue to follow and will adjust dose/frequency as necessary. Thank you. Pharmacy has transitioned to AUC monitoring for vancomycin. AUC/ALONDRA is the preferred PK/PD target and is associated with decreased risk of nephrotoxicity compared to traditional trough targets.
--- NOTE | 2023-09-04 08:27 | Hospitalist Progress Note ---
Date of Service September 04, 2023 Assessment & Plan (1) Septic arthritis of knee, right: (2) Osteoarthritis of right knee: (3) DM type 2 (diabetes mellitus, type 2): (4) Chronic kidney disease (CKD), stage III (moderate): (5) Mild aortic stenosis: (6) H/O cardiac arrest: (7) HTN (hypertension): (8) Anxiety: (9) Status post right knee replacement: Plan Pt is a 72 yo M with PMHx significant for diabetes, hypertension, PMR, OA, pulmonary hypertension, HENRIK and COPD presenting for I& D of right knee. Septic arthritis of knee, right Planned for R TKA, however, there was evidence of infection. Synovial fluid analysis and path pending Continues on vancomycin No evidence of sepsis Cont per orthopedics ID consulted by camden santana Cont. vancomycin, ceftriaxone added as per ID Discussed with surgery and ID Pt is now s/p surg. repair of his R knee. Low suspicion of infection at this time. Osteoarthritis of right knee Pain control as needed in post op state. Of note, he typically takes hydrocodone 10/325mg QID. As he is now on scheduled Tylenol, was placed on oxycodone q6h to avoid overdosing on acetaminophen. DM type 2 (diabetes mellitus, type 2) Insulin dependent and on Ozempic. A1C is 7.9 from 08/02/23. glycemic pharmacy consulted pt typically takes 30 to 45 units of lantus once daily and doesn't use short acting insulin. Chronic kidney disease (CKD), stage III (moderate) chronic, stable. BMP in am Mild aortic stenosis ELBERT heard on exam Discontinued maintenance fluids that were running to avoid fluid overload This patient is not very mobile at this point On Torsemide H/O cardiac arrest h/o prior cardiac arrest in Feb 2017 intra-operatively, thought to be due to hypoxia/apnea followed by a bradyarrhythmia and wide complex arrhythmia. Echo and stress test following event did not suggest cardiac etiology. HTN (hypertension) chronic, at goal Cont home meds including Demadex, spironolactone, verapamil, Toprol XL Anxiety chronic, stable. Cont sertraline per home regimen DVT proph: ASA 81mg PO BID per primary team Full Code Dispo-uncertain at this time. Admission and Anticipated Discharge Date Admission Date: August 30, 2023 Subjective Pt seen in follow up of med consult, s/p R knee surgery / poss. septic knee Seen by ID Currently on vancomycin, ceftriaxone Pt is currently laying in bed, in NAD, s/p surgical repair of his knee earlier today Denies any fever, chills, shortness of breath, chest pain, or abdominal pain Discussed with ID Review of Systems Review of Systems: All systems reviewed & are unremarkable except as noted in Subjective Physical Exam Physical Exam: General: WD/WN elderly M in NAD. Alert, oriented. No acute distress Skin: No noted rashes or bruises Psych: Appropriate mood and affect Neuro: No gross deficits HEENT: NC/AT CV: RRR, murmur appreciated Resp: Breath sounds clear bilaterally, no increased effort of breathing. Abdomen: Soft, nontender Extremities: R knee with surg. dressings, moving extremities Results & Data Results & Data Vital Signs (Past 12 Hours) Vital Signs Temp Pulse Resp BP Pulse Ox O2 Del Method 09/03/23 22:32 36.6 C 72 18 123/71 97 Room Air Laboratory Results 09/04/23 09/04/23 09/03/23 Range/Units 05:57 05:33 20:56 WBC 7.58 (4.8-10.8) K/ul RBC 4.11 L (4.70-6.10) M/uL Hgb 9.3 L (14.0-18.0) g/dl Hct 31.5 L (42.0-52.0) % MCV 76.6 L (80.0-100.0) fL MCH 22.6 L (25.0-34.0) pg MCHC 29.5 L (32.0-36.0) g/dL RDW Std Deviation 49.6 H (36.4-46.3) fL RDW Coeff of Geovanna 18.2 H (11.5-14.5) % Plt Count 278 (130-400) K/uL MPV 8.3 L (9.4-12.4) fL Sodium 136 (136-145) mmol/L Potassium 4.3 (3.5-5.1) mmol/L Chloride 98 (98-107) mmol/L Carbon Dioxide 31 (21-32) mmol/L Anion Gap 7 (3-11) BUN 32 H (6-23) mg/dl Creatinine 1.22 (0.6-1.4) mg/dl Est Cr Clr Drug Dosing 64.8 ml/min Est GFR ( Amer) 69.2 ml/min Est GFR (Non-Af Amer) 59.7 ml/min BUN/Creatinine Ratio 26.2 H (10-20) Glucose 149 H (70-99(Fasting)) mg/dl POC Glucose 155 H 157 H (70-99) mg/dl Calcium 8.6 (8.6-10.3) mg/dl Phosphorus 4.1 (2.5-4.9) mg/dl Magnesium 1.9 (1.7-2.4) mg/dl Random Vancomycin 17.1 (10-20) mcg/ml 09/03/23 09/03/23 Range/Units 16:28 11:29 WBC (4.8-10.8) K/ul RBC (4.70-6.10) M/uL Hgb (14.0-18.0) g/dl Hct (42.0-52.0) % MCV (80.0-100.0) fL MCH (25.0-34.0) pg MCHC (32.0-36.0) g/dL RDW Std Deviation (36.4-46.3) fL RDW Coeff of Geovanna (11.5-14.5) % Plt Count (130-400) K/uL MPV (9.4-12.4) fL Sodium (136-145) mmol/L Potassium (3.5-5.1) mmol/L Chloride (98-107) mmol/L Carbon Dioxide (21-32) mmol/L Anion Gap (3-11) BUN (6-23) mg/dl Creatinine (0.6-1.4) mg/dl Est Cr Clr Drug Dosing ml/min Est GFR ( Amer) ml/min Est GFR (Non-Af Amer) ml/min BUN/Creatinine Ratio (10-20) Glucose (70-99(Fasting)) mg/dl POC Glucose 139 H 140 H (70-99) mg/dl Calcium (8.6-10.3) mg/dl Phosphorus (2.5-4.9) mg/dl Magnesium (1.7-2.4) mg/dl Random Vancomycin (10-20) mcg/ml Medications Administered Current Inpatient Medications Acetaminophen (Acetaminophen 500 Mg Tab) 1,000 mg PO Q8 [facility] Stop: 09/27/23 21:59 Last Admin: 09/04/23 05:57 Dose: 1,000 mg Aspirin (Aspirin 81 Mg Ectab) 81 mg PO BID [facility] Stop: 09/27/23 20:59 Last Admin: 09/03/23 20:45 Dose: 81 mg Atorvastatin Calcium (Atorvastatin 40 Mg Tab) 40 mg PO QAM [facility] Stop: 09/28/23 08:59 Last Admin: 09/03/23 08:07 Dose: 40 mg Bisacodyl (Bisacodyl 10 Mg Supp) 10 mg [place] DAILY PRN PRN Reason: Constipation Stop: 09/27/23 16:35 Dextrose (Dextrose 50% 50 Ml Syringe) 25 - 50 ml IV UD PRN; Protocol PRN Reason: Hypoglycemia Protocol Stop: 09/27/23 17:29 Docusate Sodium (Docusate Sodium 100 Mg Cap) 100 mg PO BID [facility]AL Stop: 09/27/23 20:59 Last Admin: 09/03/23 20:45 Dose: 100 mg Fluocinonide (Fluocinonide 0.05% Oint 15 Gm Tube) 1 appln EXT BID PRN PRN Reason: Rash Stop: 09/27/23 16:35 Glucagon (Glucagon For Inj 1 Mg Vial) 1 mg IM UD PRN; Protocol PRN Reason: Hypoglycemia Protocol Stop: 09/27/23 17:29 Glucose (Glucose 40% Gel 15 Gm Tube) 15 - 30 gm PO UD PRN; Protocol PRN Reason: Hypoglycemia Protocol Stop: 09/27/23 17:29 Glucose (Glucose 10 Tab/Tube) 4 - 8 tab PO UD PRN; Protocol PRN Reason: Hypoglycemia Protocol Stop: 09/27/23 17:29 Hydromorphone HCl (Hydromorphone Inj 0.5 Mg/0.5 Ml Syr) 0.5 mg IV Q4H PRN PRN Reason: Pain or Pre PT Stop: 09/11/23 16:35 Last Admin: 09/04/23 05:57 Dose: 0.5 mg Ceftriaxone Sodium (Rocephin) 2,000 mg in 50 mls @ 100 mls/hr IV Q24H [facility] Stop: 10/11/23 09:14 Last Infusion: 09/03/23 08:30 Dose: Infused Vancomycin HCl 750 mg/ Sodium (Chloride) 265 mls @ 200 mls/hr IV Q12H [facility] Stop: 10/10/23 05:59 Last Admin: 09/04/23 05:57 Dose: 200 mls/hr Insulin Aspart (Insulin Aspart Per Unit Charge) 0 units SC ACHS [facility] Stop: 10/01/23 08:44 Last Admin: 09/04/23 06:07 Dose: Not Given Insulin Glargine (Lantus Per Unit Charge) 0 units SC BID [facility]; Protocol Stop: 10/01/23 20:59 Last Admin: 09/03/23 21:16 Dose: 10 units Insulin Glargine (Lantus Per Unit Charge) 5 units SC TODAY@0900 ONE Stop: 09/04/23 09:01 Lactobacillus Acidophilus (Advanced Probiotic 625 Mg Capsule) 1,250 mg PO DAILY [facility] Stop: 09/29/23 12:29 Last Admin: 09/03/23 08:06 Dose: 1,250 mg Lorazepam (Lorazepam 0.5 Mg Tab) 0.5 mg PO Q24H PRN PRN Reason: Anxiety Stop: 09/27/23 16:35 Magnesium Hydroxide (Magnesium Hydroxide Susp 30 Ml Udc) 30 ml PO Q6H PRN PRN Reason: Constipation Stop: 09/27/23 16:35 Last Admin: 09/03/23 06:29 Dose: 30 ml Magnesium Oxide (Magnesium Oxide 400 Mg Tab) 400 mg PO BID [facility] Stop: 09/30/23 08:59 Last Admin: 09/03/23 20:46 Dose: 400 mg Metoclopramide HCl (Metoclopramide Hcl Inj 5 Mg/Ml 2 Ml Vial) 10 mg IV Q6H PRN PRN Reason: Nausea And Vomiting Stop: 09/27/23 16:35 Metoprolol Succinate (Metoprolol Succ 25mg Ext Rel Tab) 25 mg PO QAM [facility] Stop: 09/28/23 08:59 Last Admin: 09/03/23 08:06 Dose: 25 mg Miscellaneous (Carbohydrates For Hypoglycemia ) 15 - 30 gm PO UD PRN PRN Reason: Hypoglycemia Treatment Stop: 09/27/23 17:29 Miscellaneous Information (Pharmacy Glycemic Mgmt Consult) 1 each N/A UD PRN PRN Reason: Consult Stop: 09/27/23 16:35 Miscellaneous Information (Vancomycin Consult Active) 1 each N/A UD PRN PRN Reason: Consult Stop: 09/27/23 16:35 Multivitamins (Multivitamin Tab) 1 tab PO QAM [facility] Stop: 09/28/23 08:59 Last Admin: 09/03/23 08:04 Dose: 1 tab Naloxone HCl (Naloxone Hcl 0.4 Mg/1 Ml Vial/Carp) 0.1 mg IV Q5M PRN PRN Reason: Oversedation/Resp Depression Stop: 09/27/23 16:35 Ondansetron HCl (Ondansetron Inj 2 Mg/Ml 2 Ml Vial) 4 mg IV Q6H PRN PRN Reason: Nausea And Vomiting Stop: 09/27/23 16:35 Oxycodone HCl (Oxycodone Hcl Ir 5 Mg Tab (Immediate Release)) 5 mg PO Q6H PRN PRN Reason: Severe Pain (Scale 7, 8, 9,10) Stop: 09/11/23 18:58 Last Admin: 09/04/23 03:51 Dose: 5 mg Pregabalin (Pregabalin 100 Mg Cap) 100 mg PO TID [facility] Stop: 09/27/23 20:59 Last Admin: 09/03/23 20:45 Dose: 100 mg Sennosides (Senna 8.6 Mg Tab) 17.2 mg PO [facility] Stop: 09/27/23 20:59 Last Admin: 09/03/23 20:46 Dose: 17.2 mg Sertraline HCl (Sertraline Hcl 50 Mg Tablet) 150 mg PO [facility] Stop: 09/28/23 08:59 Last Admin: 09/03/23 08:07 Dose: 150 mg Spironolactone (Spironolactone 12.5 Mg Tab) 12.5 mg PO [facility] Stop: 09/28/23 08:59 Last Admin: 09/03/23 08:05 Dose: 12.5 mg Tamsulosin HCl (Tamsulosin Hcl 0.4 Mg Cap) 0.8 mg PO [facility] Stop: 09/28/23 08:59 Last Admin: 09/03/23 08:08 Dose: 0.8 mg Torsemide (Torsemide 100 Mg Tab) [facility] [place]: 09/28/23 08:59 Last Admin: 09/03/23 08:05 Dose: 50 mg Verapamil HCl (Verapamil Hcl 40 Mg Tab) 120 mg PO Q2D [facility] Stop: 09/28/23 08:59 Last Admin: 09/02/23 09:48 Dose: 120 mg (3) DM type 2 (diabetes mellitus, type 2) Diabetes mellitus complication detail: with polyneuropathy Diabetes mellitus complication status: with neurologic complications Diabetes mellitus nursing home insulin use: with nursing home use Qualified Code(s): E11.42 - Type 2 diabetes mellitus with diabetic polyneuropathy; Z79.4 - adjunct faculty for medical terminology (current) use of insulin (7) HTN (hypertension) Hypertension type: primary hypertension Qualified Code(s): I10 - Essential (primary) hypertension
[2023-09-04] MEDS: LANTUS PER UNIT CHARGE SC ONE (08:28)
--- NOTE | 2023-09-04 09:43 | Infectious Disease Progress Nt ---
Date of Service September 04, 2023 Assessment & Plan (1) Septic arthritis of knee, right: (2) Osteoarthritis of right knee: (3) Status post left knee replacement: Plan This is a 72-year-old male with past medical history of DM2, hypertension, PMR, osteoarthritis, pulmonary hypertension, recent left total knee arthroplasty on 06/09/2023 who presents for evaluation of right knee pain and I & D. He reports chronic bilateral knee pain for years secondary to osteoarthritis for which he has undergone steroid injections. His Left knee pain improved after Left arthroplasty in 05/2023. 2 weeks post procedure, he noted increasing right knee pain. He received a steroid injection on 06/27/2023. He was subsequently found to have a large right knee effusion and was evaluated by orthopedics. He was scheduled for an elective right knee arthroplasty. He presented on 08/28/23 for right knee arthroplasty but was found to have a large R knee effusion with erythema around the skin per report. Per operative report, when the arthrotomy was made there was a large amount of infected appearing synovial fluid from the joint. There was purulent appearing tissue within the knee joint with concern for septic knee. Soft tissue of the synovium was sent for pathology and culture. Fluid was not sent as it was suctioned early in procedure but appeared infected. Per Pathologist report to OR, there was high levels of PMNs in each section ( "between 7-30"). There appeared to be necrosis and wearing away of the chondral surface. There was concern for a chronic infection. Unfortunately, no synovial fluid was sent. The tissue was irrigated. He was started on IV vancomycin. OR Cultures NGTD. Pathology shows chronic active, hemosiderotic synovitis. ID consulted for probable right septic knee. On my initial evaluation, he complains of occasional sweats and right knee pain. He reports a slip and fall out of his wheelchair about 3-4 to weeks prior to admission. He denies break in skin, wounds or drainage. He denies fever, chills, nausea, vomiting, abdominal pain,or shortness of breath . Left knee pain is healing well psot prior surgery. He uses a wheelchair to get around. He is HDS. Labs noted for a WBC of 8.07, BUN 27, creatinine 1.09. Micro: Right knee aerobic/anaerobic culture, 08/27: Rare WBCs , no organisms seen, Cultures pending Antibiotics: Ancef / Vancomycin /6ongoing PATHOLOGY 08/27 FINAL DIAGNOSIS A. "Synovium", right knee: - Fibrin and acute inflammatory cells are seen. - Synovial tissue is not identified on microscopy. - Examination of this tissue under polarized light fails to reveal crystal deposition disease. - See comment. B. 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 - Please note that the chronic inflammatory infiltrate is moderate in intensity but the acute inflammatory infiltrate is mild in intensity and is found focally within the tissue. - Examination of this tissue under polarized light fails to reveal crystal deposition disease. In sum, thereis no evidence of gout or pseudogout in this case despite the pr esence of "strongly birefringent needle-shaped crystals consistent with uric acid crystals of gout" on a touch preparation of synovial tissue from the left knee # Possible Right shinnecock septic knee # S/P Left TKA , no issues #H/O Left Hip replacement with hardware # H/O Spinal fusion with Hardware Pathology of R knee synovium showed moderate chronic active hemosiderotic synovitis. No evidence gout or pseudogout. Intraop synovial tissue cx with no organisms on gram stain and CULTURES NGTD but not yet finalized. RTKA on hold but he appears on schedule today Recommendations: It is unclear cause of acute on chronic inflammation of right knee - Given findings from OR and pathology report, it is difficult to rule out infection I would favor holding on hardware placement and treat for septic knee with 3-4 weeks of antibiotics. Cultures can take some time to grow and may not grow. We also dont have fluid cultures. I'll ask micro if they can send for 16s PCR. I am suspicious of an acute infection on chronic gout/pseudogout. Lyme disease also on differential. I will change his abx to Ertapenem 1 G IV daily and oral doxycycline pending final cultures From my standpoint may benefit with 3-4 weeks of abx treatment prior to RTKA. I spoke with Hospitalist service and contacted Orthopaedic team regarding OR today. I also d/w patient -Narrow abx to Ertapenem 1G IV daily -DC IV vancomycin -Start Doxycycline 100mg po BID -Add 16S PCR to tissue in micro (if able to send out) -Serum Lyme testing Yu Pratt MD [facility], ID Division Admission and Anticipated Discharge Date Admission Date: August 30, 2023 Subjective Subsequent visit was provided via telemedicine using two-way real-time interactive telecommunication between the patient and the telemedicine provider. For the duration of the visit, the provider was performing the assessment from a different facility than the patient. This includesuse of bluetooth stethoscope forauscultationperformed by the telepresenter that the telemedicine provider can hear if described in the physical exam. [employer] contact information: Please call [facility] Center . (Phone Number For Physician Use Only) After establishing a telemedicine visit, patient was: Patient was verified with two unique identifiers, Patient/authorized rep acknowledged consent and understanding and Gave permission to continue telehealth session Time Spent with Patient: Subsequent => 35 min no complaints continues to have right knee pain but feels swelling much improved Physical Exam Physical Exam: NAD R knee yannick w/o drainage or redness PIVs No rash Results & Data Vital Signs (Past 12 Hours) Vital Signs Temp Pulse Resp BP Pulse Ox O2 Del Method 09/03/23 22:32 36.6 C 72 18 123/71 97 Room Air
--- NOTE | 2023-09-04 09:53 | Pharmacy Report ---
Pharmacy Glycemic Short Note 2 - Date of Service September 04, 2023 - Glycemic Short BSG Results (Last 24 hours): 09/03/23 09/03/23 09/03/23 11:29 16:28 20:56 Glucose POC Glucose 140 H 139 H 157 H 09/04/23 09/04/23 05:33 05:57 Glucose 149 H POC Glucose 155 H OUTPATIENT ANTIDIABETIC REGIMEN: * Lantus 30 units SQ daily * Ozempic 0.25mg SQ weekly (on Monday) * HbA1c: 7.9% (08/02/23) ASSESSMENT: 09/03 * NPO this AM for anticipated R TKA today * AM fasting BSG within goal range this AM. Patient has been receiving Lanus 10 units BID per the scale. Will reduce by 50% for this AM dose only 2nd NPO status. Anticipate diet will be re-ordered post-op * Post-prandial BSG's yesterday reasonable. No change to Novolog. 08/31 * Dennis received 22 units of insulin yesterday (20 were bolus) * Fasting BSG this AM within goal range, will split up basal insulin and allow for a reduced dosage if BSGs are below goal range. * Carbohydrate ratio adjusted, diet ordered at breakfast, TKA rescheduled for Monday. 08/29 * Patient fasting 93 mg/dL this morning, received 20 units this morning per scale- will need re-evaluated in AM given below goal today * Lunch BSG 78 mg/dl- carb ratio was loosened, adjusted goal range to 120-160 mg/dL 08/28 * Mr Guo is a 72yo diabetic M admitted for TKA. In the OR, joint was found to be infected and TKA was postponed. * Pt received 8mg PO dexamethasone yesterday. * Pt initiated on SQ basal/bolus insulin regimen on admission. * Pharmacy will continue to follow and adjust regimen as indicated. PLAN FOR INPATIENT GLYCEMIC CONTROL: * Basal insulin * Lantus 5 units this AM then resume 5-10 units SC BID based on BSG (BSG <120mg/dL 5 units, BSG 120 or greater 10 units) * Bolus insulin * NovoLog per scale ACHS or Q6hrs while NPO * Goal Range: Low 110 mg/dL - High 140 mg/dL * Correction Factor: 30 mg/dL/unit * Nutritional / Prandial insulin per carb ratio of 1 unit per 12 grams CHO consumed
--- NOTE | 2023-09-04 11:54 | History & Physical Bridge Note ---
Date of Service September 04, 2023 History & Physical Bridge Note I have examined the patient, reviewed the History & Physical and in the interval since the performance of the History & Physical I have noted the following changes of clinical significance: no changes noted
[2023-09-04] MEDS ORDERED: fentaNYL citrate PF 100 MCG/2 ML VIAL ONE ×2 (12:26→13:48)
[2023-09-04] MEDS ORDERED: MIDAZOLAM HCL 1 MG/ML 2ML VIAL ONE (12:26)
[2023-09-04] MEDS ORDERED: ROCURONIUM BROMIDE 10 MG/ML 5 ML VIAL IV ONE (12:28)
[2023-09-04] MEDS ORDERED: PROPOFOL IV EMULSION 10 MG/ML 20 ML VIAL IV ONE (12:28)
[2023-09-04] MEDS ORDERED: ONDANSETRON INJ 2 MG/ML 2 ML VIAL ONE (12:28)
[2023-09-04] MEDS ORDERED: LIDOCAINE 2% 2 ML VIAL/AMP(20MG/ML) INFIL ONE (12:28)
[2023-09-04] MEDS ORDERED: HYDROmorphone INJ 1 MG/ML SYRINGE IV PRN (12:47)
[2023-09-04] MEDS ORDERED: ePHEDrine sulfate 50 MG/ML AMP IV PRN (12:47)
[2023-09-04] MEDS ORDERED: ONDANSETRON INJ 2 MG/ML 2 ML VIAL IV PRN ×2 (12:47→15:30)
[2023-09-04] MEDS ORDERED: PROMETHAZINE HCL 6.25 MG in SODIUM CHLORIDE 0.9% 50 ML IV PRN (12:47)
[2023-09-04] MEDS ORDERED: ATROPINE SULFATE 0.1 MG/ML 10ML SYR IV PRN (12:47)
--- NOTE | 2023-09-04 12:48 | Anesthesiology Consultation ---
Date of Service September 04, 2023 Assessment & Plan (1) Encounter for pre-operative examination: Chart Review Chart Review: Acceptable Risk for Surgery and Patient NOT seen in Pre Admission Testing Consults Requested none History Surgery Operation Date: 08/28/23 12:00 Proposed Procedures p Right Total Knee Arthroplasty - Arian Dee DO Operation Date: 09/04/23 13:00 Proposed Procedures p Right Total Knee Arthroplasty - Arian Dee DO Height/Weight Height: 5 ft 10 in Weight: 93.9 kg Allergies Allergy/AdvReac Type Severity Reaction Status Date / Time No Known Allergies Allergy Verified 09/04/23 12:47 Medications Home Medications Medication Instructions Recorded Confirmed Last Taken folic acid 1 mg tablet 1 mg PO QAM 12/10/18 08/28/23 08/27/23 08:00 tamsulosin 0.4 mg capsule 0.8 mg PO QAM #30 caps 12/10/18 08/28/23 08/28/23 08:30 acetaminophen 500 mg tablet 1,000 mg PO Q6H PRN Pain 01/30/19 08/28/23 08/27/23 10:00 cholecalciferol (vitamin D3) 50 2,000 unit PO QAM 01/30/19 08/28/23 08/27/23 08:00 mcg (2,000 unit) tablet fluocinonide 0.05 % topical 1 applic topical BID PRN Rash 01/30/19 08/28/23 06/08/22 08:00 ointment lorazepam 0.5 mg tablet 0.5 mg PO DAILY PRN Anxiety 01/30/19 08/28/23 03/08/23 pantoprazole 40 mg tablet,delayed 40 mg PO QAM 01/30/19 08/28/23 08/28/23 08:30 release polyethylene glycol 3350 17 17 g PO DAILY PRN Constipation 01/30/19 08/28/23 08/27/23 10:00 gram/dose oral powder (Miralax) pregabalin 100 mg capsule 100 mg PO TID 01/30/19 08/28/23 08/28/23 08:30 spironolactone 25 mg tablet 12.5 mg PO QAM 01/30/19 08/28/23 08/26/23 10:00 verapamil 120 mg tablet 120 mg PO Q2D 01/30/19 08/28/2308/26/24 10:00 torsemide 100 mg tablet 50 mg PO QAM 12/25/19 08/28/23 08/26/23 10:00 atorvastatin 40 mg tablet 40 mg PO QAM 06/06/22 08/28/23 08/28/23 08:30 semaglutide 0.25 mg or 0.5 mg (2 0.25 mg subcut Q7D 06/06/22 08/28/23 08/18/23 21:00 mg/3 mL) subcutaneous pen injector (Ozempic) CPAP Machine #1 ea 09/21/22 08/28/23 Unknown cyanocobalamin (vitamin B-12) 5,000 mcg sublingual QA 05/24/23 08/28/23 06/08/23 08:00 5,000 mcg sublingual tablet (Vitamin B-12) metoprolol succinate 25 mg 25 mg PO QA 05/24/23 08/28/23 08/28/23 08:30 tablet,extended release 24 hr (Toprol XL) sertraline 150 mg capsule 150 mg PO [facility] 05/24/23 08/28/23 08/28/23 08:30 hydrocodone 10 mg-acetaminophen 1 tab PO Q6H PRN Pain (Scale Score 08/28/23 08/28/23 Unknown 325 mg tablet 7-10) insulin glargine 100 unit/mL (3 30 unit subcut QAM 08/28/23 08/28/23 Unknown mL) subcutaneous pen (Lantus Solostar U-100 Insulin) Active Medications Generic Name Dose Route Start Last Admin Trade Name Freq PRN Reason Stop Dose Admin Acetaminophen 1,000 mg 08/28/23 22:00 09/04/23 05:57 Acetaminophen 500 Mg Tab PO 09/27/23 21:59 1,000 mg Q8 KAL Administration Aspirin 81 mg 08/28/23 21:00 09/04/23 08:28 Aspirin 81 Mg Ectab PO 09/27/23 20:59 81 mg BID KAL Administration Atorvastatin Calcium 40 mg 08/29/23 09:00 09/04/23 08:27 Atorvastatin 40 Mg Tab PO 09/28/23 08:59 40 mg QAM KAL Administration Docusate Sodium 100 mg 08/28/23 21:00 09/04/23 08:28 Docusate Sodium 100 Mg Cap PO 09/27/23 20:59 100 mg BID KAL Administration Hydromorphone HCl 0.5 mg 08/28/23 16:36 09/04/23 05:57 Hydromorphone Inj 0.5 Mg/0.5 Ml Syr IV 09/11/23 16:35 0.5 mg Q4H PRN Administration Pain or Pre PT Ceftriaxone Sodium 2,000 mg in 50 mls @ 100 mls/hr 08/30/23 09:15 09/04/23 09:48 Rocephin IV 10/11/23 09:14 Infused Q24H KAL Infusion Vancomycin HCl 750 mg/ Sodium 265 mls @ 200 mls/hr 08/30/23 18:00 09/04/23 08:56 Chloride IV 10/10/23 05:59 Infused Q12H KAL Infusion Insulin Aspart 0 units 09/01/23 08:45 09/04/23 06:07 Insulin Aspart Per Unit Charge PR 10/01/23 08:44 Not Given ACHS [facility] Insulin Glargine 0 units 09/01/23 21:00 09/03/23 21:16 Lantus Per Unit Charge PR 10/01/23 20:59 10 units BID KAL Administration Protocol Lactobacillus Acidophilus 1,250 mg 08/30/23 12:30 09/04/23 08:27 Advanced Probiotic 625 Mg Capsule PO 09/29/23 12:29 1,250 mg DAILY KAL Administration Magnesium Hydroxide 30 ml 08/28/23 16:36 09/03/23 06:29 Magnesium Hydroxide Susp 30 Ml Udc PO 09/27/23 16:35 30 ml Q6H PRN Administration Constipation Magnesium Oxide 400 mg 08/31/23 09:00 09/04/23 08:28 Magnesium Oxide 400 Mg Tab PO 09/30/23 08:59 400 mg BID KAL Administration Metoprolol Succinate 25 mg 08/29/23 09:00 09/04/23 08:27 Metoprolol Succ 25mg Ext Rel Tab PO 09/28/23 08:59 25 mg QAM KAL Administration Multivitamins 1 tab 08/29/23 09:00 09/04/23 08:27 Multivitamin Tab PO 09/28/23 08:59 1 tab QAM KAL Administration Oxycodone HCl 5 mg 08/28/23 18:59 09/04/23 03:51 Oxycodone Hcl Ir 5 Mg Tab (Immediate Release) PO 09/11/23 18:58 5 mg Q6H PRN Administration Severe Pain (Scale 7, 8, 9,10) Pregabalin 100 mg 08/28/23 21:00 09/04/23 08:28 Pregabalin 100 Mg Cap PO 09/27/23 20:59 100 mg TID KAL Administration Sennosides 17.2 mg 08/28/23 21:00 09/03/23 20:46 Senna 8.6 Mg Tab PO 09/27/23 20:59 17.2 mg HS KAL Administration Sertraline HCl 150 mg 08/29/23 09:00 09/04/23 08:27 Sertraline Hcl 50 Mg Tablet PO 09/28/23 08:59 150 mg QAM KAL Administration Spironolactone 12.5 mg 08/29/23 09:00 09/04/23 08:27 Spironolactone 12.5 Mg Tab PO 09/28/23 08:59 12.5 mg QAM KAL Administration Tamsulosin HCl 0.8 mg 08/29/23 09:00 09/04/23 08:27 Tamsulosin Hcl 0.4 Mg Cap PO 09/28/23 08:59 0.8 mg QAM KAL Administration Torsemide 50 mg 08/29/23 09:00 09/04/23 08:27 Torsemide 100 Mg Tab PO 09/28/23 08:59 50 mg QAM KAL Administration Verapamil HCl 120 mg 08/29/23 09:00 09/04/23 08:27 Verapamil Hcl 40 Mg Tab PO 09/28/23 08:59 120 mg Q2D KAL Administration NPO Date Last Intake of Fluids: 09/04/23 Time Last Intake of Fluids: 09:00 Last Intake of Fluids Comment: sips with AM meds Date Last Intake of Solids: 09/03/23 Time Last Intake of Solids: 22:00 Past Medical History Medical History H/O cardiac arrest Alcohol abuse Pulmonary hypertension PASP 41 mmHg on 12/2022 echo Heart failure History of blood transfusion 2017 History of anesthesia reaction during left DANY 2017 @ [facility] > Per [facility] discharge summary (03/08/17): Intraoperative bradycardia/unresponsive/hypotensive > CPR begun/epi > wide complex tachycardia s/p synchronized cardioversion shocks- transferred to ICU intubated. Stabilized next day and went back to OR to complete DANY. Tolerated procedure okay and sent back to ICU (extubated next day). Hx heavy ETOH use noted. Chronic anemia Iron deficiency Following closely with [facility] heme/onc, "Cause of anemia is likely multifactorial including ACD/AI, renal insufficiency, andiron deficiency" PMR (polymyalgia rheumatica) Aortic stenosis Echo 12/2022: Moderate aortic stenosis Cardiac arrhythmia Per [facility] discharge summary (03/08/17): Intraoperative bradycardia/unresponsive/hypotensive during Left DANY > CPR begun/epi > wide complex tachycardia s/p synchronized cardioversion shocks- transferred to ICU intubated. Stabilized next day and went back to OR to complete DANY. Tolerated procedure okay and sent back to ICU (extubated next day). Hx heavy ETOH use noted. Pt has had anesthesia since (colonoscopy 2018, B/L cataracts 06/2022) without issue Follows with Dr. Remy Arthritis Personal history of diabetic foot ulcer Diabetic peripheral neuropathy associated with type 2 diabetes mellitus feet Morbid obesity HENRIK (obstructive sleep apnea) CPAP (current occasional use, spoke with patient at PAT visit 05/26/23- patient voiced that he will plan to be compliant prior to DOS) Pseudogout hx Spinal stenosis Chronic kidney disease (CKD), stage III (moderate) Diverticular disease Diabetes mellitus, type 2 Hearing deficit hearing aids b/l Anxiety Hypertension controlled, stable per pt Hyperlipidemia Exercise / Class Metabolic Activity II 4-5 Yardwork/Stairs/Walk up hill Past Family History Family History Mother Family history of diabetes mellitus Brother Family history of diabetes mellitus Sister Family history of diabetes mellitus Other No family history of adverse response to anesthesia Past Surgical History Surgical History History of left knee replacement 06/09/23 [facility] Hx of left cataract extraction History of right cataract surgery History of carpal tunnel surgery of right wrist History of lumbar spinal fusion History of total left hip replacement Left DANY anterior (03/01/17): SAB at L3-4 at [facility] > Per [facility] discharge summary (03/08/17): Intraoperative bradycardia/unresponsive/hypotensive > CPR begun/epi > wide complex tachycardia s/p synchronized cardioversion shocks- transferred to ICU intubated. Stabilized next day and went back to OR to complete DANY. Tolerated procedure okay and sent back to ICU (extubated next day). Hx heavy ETOH use noted. History of arthroscopy of left knee History of left knee surgery History of colonoscopy History of esophagogastroduodenoscopy (EGD) History of tooth extraction partial upper and lower denture History of wisdom tooth extraction Social History Smoking Status: Former smoker tobacco type: cigarettes Smoking cigarettes per day: Quit 2017 Do You Dip or Chew Tobacco: No Hx Alcohol Use: Yes Alcohol type: beer alcohol intake frequency: holidays/special occasions only Hx Substance Use: No substance use type: does not use Physical Exam Vital Signs Last Vital Signs Temp 37.0 C 09/04/23 12:09 Pulse 60 09/04/23 12:09 Resp 18 09/04/23 12:09 BP 113/64 09/04/23 12:09 Pulse Ox 94 09/04/23 12:09 O2 Del Method Room Air 09/04/23 12:09 O2 Flow Rate 4 08/28/23 15:10 Testing Laboratory Results 09/04/23 05:33 09/04/23 05:33 Blood Type A Positive 08/31/23 15:01 Antibody Screen NEGATIVE 08/31/23 15:01 08/28/23 14:40 Gram Stain - Final Knee,Right Aerobic and Anaerobic Culture - Final No growth 09/04/23 09/04/23 11:32 05:57 POC Glucose 139 H 155 H Electrocardiogram Date: 12/05/22 Sinus rhythm with 1st degree AV block with occasional premature ventricular complexes, rate 89 bpm Left axis deviation Chest X-Ray Date: 12/05/22 No acute chest disease. Echocardiogram Date: 01/10/23 EF 55-59% Normal LV wall motion Mild cLVH Severely enlarged LA Grade II diastolic dysfunction Moderately calcified aortic valve Moderate aortic valve stenosis (SCARLET 1.4 cm2, mean PG 21 mmHg) Mild mitral regurgitation Mild tricuspid regurgitation PASP 41 mmHg Mildly enlarged aortic root and proximal ascending aorta Stress Test Date: 01/10/23 Pharmacologic MPHR 62% Negative for ischemia EF 67% Normal LV wall motion
[2023-09-04] MEDS ORDERED: ePHEDrine sulfate 50 MG/5 ML SYR ONE (13:13)
[2023-09-04] MEDS ORDERED: PHENYLEPHRINE 100MCG/ML 10ML SYR IV ONE (13:13)
[2023-09-04] MEDS: ROPIV 0.5% 246mg, Ketorolac 30mg, EPINEPHrine 0.5mg in NSS INFIL SCH (13:37)
--- NOTE | 2023-09-04 14:18 | Operative Report ---
PG Post Operative Report Pre & Post Diagnosis Operation Date: 09/04/23 13:00 Pre-Op Diagnosis: Osteoarthritis of right knee Post-Op Diagnosis: Osteoarthritis of right knee I identified the patient and participated in the time-out.: Yes Procedure Operation Date: 09/04/23 13:00 Actual Procedures p Right Total Knee Arthroplasty(Right) - Arian Dee DO Surgeon Arian Dee DO Deep Fat [employer] Cook Arian Hahn PA-C Estimated Blood Loss 30 Findings Consistent with Post-Op Diagnosis Specimens Right femoral and tibial bone Description of Procedure Implants used: I used a [employer] total knee arthroplasty system with a size 11 standard PS femur, G tibia, 34 oval patella, and a size 10 CPS polyethylene bearing. All components were cemented in place with Biomet cement. Dennis [facility] for the above procedure. He was seen in the preoperative holding area and the operative extremity was identified and signed. He was given a preoperative antibiotic, TXA, a spinal anesthetic and an adductor nerve block. He was taken back to the operating room and laid on the table in supine position. He was given basic sedation. The operative knee was then prepped and draped in sterile fashion. A timeout was done, and the patient and the operative extremity was properly identified. A midline incision was made directly over the patella. Dissection was taken down to the extensor mechanism. A medial parapatellar arthrotomy was used. The medial retinaculum was released and the fat pad was mostly excised. The knee was flexed and the ACL, PCL, and meniscus were removed. A drill was sent down the center of the femoral canal followed by an intramedullary joey. Off that joey a distal femoral cutting block was placed. 9 mm was resected off the distal femur at 5 of valgus. A posterior referencing AP sizing guide was then placed on the distal femur. The femur measured to be a size 11. 2 drill holes were placed in 3 of external rotation. A 4-in-1 cutting block was then impacted into place. Anterior, posterior, and chamfer cuts were then made. The proximal tibia was then exposed. An external tibial alignment guide was placed. A tibial cut guide was then anchored in place and the proximal tibia was then resected. The posterior aspect of the knee was then opened up and any additional meniscus fragments and osteophytes were removed. The tibia measured to be a size G. The tibial plate was then placed in the appropriate rotation and the tibia was drilled and punched. Trial components were then placed. I used a size 10 CPS polyethylene insert. The knee was brought through a full range of motion and felt to be stable. The peg holes for the femoral component were then drilled. The patella was then everted and 9 mm was resected off the posterior aspect of the patella. The patella measured to be a size 34 oval. 3 peg holes were then drilled. A trial patella was placed. The knee was once again brought through a full range of motion and felt to be stable. Trial components were then removed. The surrounding soft tissues were injected with 100 cc of an orthopedic pain control cocktail. All components were then cemented into place with Biomet cement. The final polyethylene insert was then snapped into place. Once cement was dry the tourniquet was deflated. Hemostasis was obtained. A dilute betadyne lavage was then done for 3 minutes. The joint was then irrigated with normal saline solution. The medial parapatellar arthrotomy was then closed with #1 Vicryl suture. The skin was closed with 2-0 Vicryl, 3-0V lock suture, and yannick. A soft compressive dressing was placed. He was then transferred to a hospital bed and taken to the postanesthesia care unit in stable condition. He tolerated the procedure well. Arian Hahn PA-C, was present for the entire procedure. He was critical for patient positioning, prepping, draping, retraction exposure, wound closure and application of sterile dressing. I attest to the content of the Intraoperative Record and any orders documented therein. Any exceptions are noted below.
[2023-09-04] MEDS ORDERED: SUGAMMADEX SODIUM 200 MG/2 ML VIAL IV ONE (14:29)
[2023-09-04] MEDS: fentaNYL citrate PF 100 MCG/2 ML VIAL IV PRN (14:49)
--- NOTE | 2023-09-04 15:06 | XRay Report ---
XR knee RT 1 or 2V routine CLINICAL HISTORY: Postoperative evaluation. COMPARISON: Right knee radiographs August 02, 2023. FINDINGS: Alignment of the total right knee arthroplasty is anatomic. There is no periprosthetic fra cture or unexpected radiopaque foreign body. A right knee joint effusion is present. There are skin s taples. IMPRESSION: 1. Intact total right knee arthroplasty. No periprosthetic fractures. 2. Right knee joint effusion. ACT 112: Negative or not required by law. Electronically signed by: Usama Ruffin M.D. 09/04/2023 3:04 PM
[2023-09-04] MEDS ORDERED: NALOXONE HCL 0.4 MG/1 ML VIAL/CARP IV PRN (15:30)
[2023-09-04] MEDS ORDERED: METOCLOPRAMIDE HCL INJ 5 MG/ML 2 ML VIAL IV PRN (15:30)
--- NOTE | 2023-09-04 15:39 | Anesthesiology Progress Note ---
Date of Service September 04, 2023 Anesthesia Post Procedure Vital Signs Vital Signs: Temp Pulse Pulse Pulse Resp BP Pulse Ox 09/04/23 15:30 36.9 C 93 H 16 113/62 94 09/04/23 15:20 86 18 104/56 L 97 09/04/23 15:10 36.7 C 87 15 108/58 L 97 09/04/23 15:00 88 12 102/61 97 09/04/23 14:50 96 H 12 118/53 L 93 09/04/23 14:42 36.3 C L 88 18 92/49 L 98 09/04/23 12:09 37.0 C 60 18 113/64 94 09/03/23 22:32 36.6 C 72 18 123/71 97 09/03/23 19:30 O2 Del Method O2 Flow Rate 09/04/23 15:30 Room Air 09/04/23 15:20 Nasal Cannula 3 09/04/23 15:10 Nasal Cannula 3 09/04/23 15:00 Nasal Cannula 3 09/04/23 14:50 Nasal Cannula 3 09/04/23 14:42 Nasal Cannula 3 09/04/23 12:09 Room Air 09/03/23 22:32 Room Air 09/03/23 19:30 Room Air Pain Intensity Bilateral Knee: Pain Intensity: 6 Right Knee: Pain Intensity: 4 Transfer of Care Handoff Completed per policy Notes Mental Status: alert / awake / arousable and participated in evaluation Patient Amnestic to Procedure: Yes Nausea / Vomiting: adequately controlled Pain: adequately controlled Airway Patency, RR, SpO2: stable & adequate BP & HR: stable & adequate Hydration State: stable & adequate Anesthetic Complications: no major complications apparent and Pt Satisfied with anesthetic care
[2023-09-04] MEDS: LACTATED RINGER'S 1,000 ML IV SCH (15:42)
[2023-09-04] MEDS: SODIUM CHLORIDE 0.9% 1,000 ML IV SCH (15:42)
[2023-09-04] MEDS: HYDROmorphone INJ 0.5 MG/0.5 ML SYR IV PRN (15:49)
[2023-09-04] MEDS: ceFAZolin 2000MG 2,000 MG/15 ML SYR IV SCH (20:05)
[2023-09-04] MEDS: DOXYCYCLINE HYCLATE 100 MG CAP PO SCH (20:07)
[2023-09-04] MEDS ORDERED: SENNA 8.6 MG TAB PO SCH (21:00)
[2023-09-04] MEDS ORDERED: DOCUSATE SODIUM 100 MG CAP PO SCH (21:00)
[2023-09-04] MEDS: ACETAMINOPHEN 500 MG TAB PO SCH (21:11)
[2023-09-04] MEDS: oxyCODONE HCL IR 5 MG TAB (IMMEDIATE RELEASE) PO PRN (22:30)
[2023-09-05] MEDS: ACETAMINOPHEN 1,000 MG/100 ML VIAL IV STA (02:02)
[2023-09-05] MEDS: SODIUM CHLORIDE 0.9% 1,000 ML IV SCH ×2 (05:23→13:33)
[2023-09-05 06:52] LABS: Hematocrit (blood only) 28.6 % (42.0-52.0); Hemoglobin 8.5 g/dl (14.0-18.0); Mean Corpuscular Hemoglobin 22.7 pg (25.0-34.0); Mean Corpuscular Hgb Conc 29.7 g/dL (32.0-36.0); Mean Corpuscular Volume 76.3 fL (80.0-100.0); Mean Platelet Volume 8.2 fL (9.4-12.4); Platelet Count 234 K/uL (130-400); RDW Coefficient of Variation 17.7 % (11.5-14.5); RDW Standard Deviation 48.4 fL (36.4-46.3); Red Blood Count 3.75 M/uL (4.70-6.10); White Blood Count 9.24 K/ul (4.8-10.8)
--- NOTE | 2023-09-05 07:01 | Orthopedic Progress Note ---
Date of Service September 05, 2023 Assessment & Plan (1) Status post right knee replacement: Unfortunately he is having a lot of pain in the right knee. The surgery went very well. I did not see any signs of infection when I open the knee back up. He is currently on oxycodone and Dilaudid for pain control. I checked his kidney function and I will be adding Toradol 15 mg every 6 hours scheduled. Hopefully the anti-inflammatory will help some with his pain as well. He will be seen by physical therapy today. He did require a rehab stay of 10 days at [facility] after his left knee replacement about 4 months ago. He will likely need another stay at rehab for his right knee. He will be seen by phys ical therapy today for ambulation and range of motion exercises. He will be seen by case management as well. We will likely keep him in the hospital today for pain control. We will look at discharging him to [facility] either Monday or . George Collins was seen and examined at bedside this morning. Unfortunately he is in a lot of pain in his right knee. He has been given the oxycodone and the Dilaudid. His blood pressure is running a little bit low at 100/54. Aside from the pain, he has no other complaints.. Review of Systems All systems reviewed & are unremarkable except as noted in HPI & below. Physical Exam On physical examination of the right knee, the dressing is clean and dry. His legs out in full extension. He is active dorsiflexion plantarflexion of the right ankle.. Results & Data Results & Data Laboratory Results . Diagnostic Findings Postoperative x-rays of the right knee show the prosthesis to be in anatomic alignment without any evidence of fracture, dyscrasia, or loosening.. PG Care Time/CCT Total # of Minutes Spent Total Time Spent with Patient: Total time spent is greater than 50% in coordination of care (as documented) at patient's floor/unit and/or counseling patient: Coding Level of Care Code 90558 Post Operative Follow-Up Diagnoses Status post right knee replacement Z96.651
[2023-09-05] MEDS: KETOROLAC TROMETHAMINE 15 MG/ML VIAL IV SCH (07:47)
[2023-09-05 08:19] LABS: BUN Creatinine Ratio 26.1 (10-20); Calcium 7.8 mg/dl (8.6-10.3); Creatinine Clr Calc Pharmacy 68.8 ml/min; Est GFR (African American) 74.3 ml/min; Est GFR (Non-African American) 64.1 ml/min; Magnesium 1.7 mg/dl (1.7-2.4); Potassium 4.3 mmol/L (3.5-5.1)
[2023-09-05] MEDS ORDERED: MULTIVITAMIN TAB PO SCH (09:00)
--- NOTE | 2023-09-05 13:26 | Hospitalist Progress Note ---
Date of Service September 05, 2023 Assessment & Plan (1) Septic arthritis of knee, right: (2) Osteoarthritis of right knee: (3) DM type 2 (diabetes mellitus, type 2): (4) Chronic kidney disease (CKD), stage III (moderate): (5) Mild aortic stenosis: (6) H/O cardiac arrest: (7) HTN (hypertension): (8) Anxiety: (9) Status post right knee replacement: Plan Pt is a 72 yo M with PMHx significant for diabetes, hypertension, PMR, OA, pulmonary hypertension, HENRIK and COPD presenting for I& D of right knee. Septic arthritis of knee, right Planned for R TKA, however, there was evidence of infection. Synovial fluid analysis and path - negative Continued on vancomycin No evidence of sepsis Cont per orthopedics ID consulted by camden santanas Cont. vancomycin, ceftriaxone added as per ID Discussed with surgery and ID Pt is now s/p surg. repair of his R knee. Low suspicion of infection at this time. Per ID - will stop abx now Osteoarthritis of right knee Pain control as needed in post op state. Of note, he typically takes hydrocodone 10/325mg QID. As he is now on scheduled Tylenol, was placed on oxycodone q6h to avoid overdosing on acetaminophen. DM type 2 (diabetes mellitus, type 2) Insulin dependent and on Ozempic. A1C is 7.9 from 08/02/23. glycemic pharmacy consulted pt typically takes 30 to 45 units of lantus once daily and doesn't use short acting insulin. Chronic kidney disease (CKD), stage III (moderate) chronic, stable. BMP in am Mild aortic stenosis ELBERT heard on exam Discontinued maintenance fluids that were running to avoid fluid overload This patient is not very mobile at this point On Torsemide H/O cardiac arrest h/o prior cardiac arrest in Feb 2017 intra-operatively, thought to be due to hypoxia/apnea followed by a bradyarrhythmia and wide complex arrhythmia. Echo and stress test following event did not suggest cardiac etiology. HTN (hypertension) chronic, at goal Cont home meds including Demadex, spironolactone, verapamil, Toprol XL Anxiety chronic, stable. Cont sertraline per home regimen DVT proph: ASA 81mg PO BID per primary team Full Code Dispo-uncertain at this time. Plan for rehab. Admission and Anticipated Discharge Date Admission Date: August 30, 2023 Subjective Pt seen in follow up of med consult, s/p R knee surgery / poss. septic knee Currently s/p R knee surgery yesterday ID consulted and following, on IV abx - plan to stop abx now Pt is currently sitting up in chair, in NAD, s/p surgical repair of his knee yesterday, Complains of knee pain - reports having difficult night d/t pain as well Denies any fever, chills, shortness of breath, chest pain, or abdominal pain Review of Systems Review of Systems: All systems reviewed & are unremarkable except as noted in Subjective Physical Exam Physical Exam: General: WD/WN elderly M in NAD. Alert, oriented. No acute distress Skin: No noted rashes or bruises Psych: Appropriate mood and affect Neuro: No gross deficits HEENT: NC/AT CV: RRR, murmur appreciated Resp: Breath sounds clear bilaterally, no increased effort of breathing. Abdomen: Soft, nontender Extremities: R knee with surg. dressings, moving extremities Results & Data Results & Data Vital Signs (Past 12 Hours) Vital Signs Temp Pulse Resp BP BP Pulse Ox O2 Del Method 09/05/23 12:30 36.7 C 76 16 95/53 L 97 Room Air 09/05/23 07:50 36.7 C 71 16 113/64 95 Room Air 09/05/23 04:53 36.9 C 76 18 95/57 L 100/54 L 97 Room Air 09/05/23 02:04 160/84 H Laboratory Results 09/05/23 09/05/23 09/05/23 Range/Units 11:30 07:47 06:38 WBC 9.24 (4.8-10.8) K/ul RBC 3.75 L (4.70-6.10) M/uL Hgb 8.5 L (14.0-18.0) g/dl Hct 28.6 L (42.0-52.0) % MCV 76.3 L (80.0-100.0) fL MCH 22.7 L (25.0-34.0) pg MCHC 29.7 L (32.0-36.0) g/dL RDW Std Deviation 48.4 H (36.4-46.3) fL RDW Coeff of Geovanna 17.7 H (11.5-14.5) % Plt Count 234 (130-400) K/uL MPV 8.2 L (9.4-12.4) fL Sodium 136 (136-145) mmol/L Potassium 4.3 (3.5-5.1) mmol/L Chloride 99 (98-107) mmol/L Carbon Dioxide 28 (21-32) mmol/L Anion Gap 9 (3-11) BUN 30 H (6-23) mg/dl Creatinine 1.15 (0.6-1.4) mg/dl Est Cr Clr Drug Dosing 68.8 ml/min Est GFR ( Amer) 74.3 ml/min Est GFR (Non-Af Amer) 64.1 ml/min BUN/Creatinine Ratio 26.1 H (10-20) Glucose 113 H (70-99(Fasting)) mg/dl POC Glucose 135 H 116 H (70-99) mg/dl Calcium 7.8 L (8.6-10.3) mg/dl Phosphorus 4.0 (2.5-4.9) mg/dl Magnesium 1.7 (1.7-2.4) mg/dl 09/04/23 09/04/23 Range/Units 20:38 16:34 WBC (4.8-10.8) K/ul RBC (4.70-6.10) M/uL Hgb (14.0-18.0) g/dl Hct (42.0-52.0) % MCV (80.0-100.0) fL MCH (25.0-34.0) pg MCHC (32.0-36.0) g/dL RDW Std Deviation (36.4-46.3) fL RDW Coeff of Geovanna (11.5-14.5) % Plt Count (130-400) K/uL MPV (9.4-12.4) fL Sodium (136-145) mmol/L Potassium (3.5-5.1) mmol/L Chloride (98-107) mmol/L Carbon Dioxide (21-32) mmol/L Anion Gap (3-11) BUN (6-23) mg/dl Creatinine (0.6-1.4) mg/dl Est Cr Clr Drug Dosing ml/min Est GFR ( Amer) ml/min Est GFR (Non-Af Amer) ml/min BUN/Creatinine Ratio (10-20) Glucose (70-99(Fasting)) mg/dl POC Glucose 182 H 144 H (70-99) mg/dl Calcium (8.6-10.3) mg/dl Phosphorus (2.5-4.9) mg/dl Magnesium (1.7-2.4) mg/dl Medications Administered Current Inpatient Medications Acetaminophen (Acetaminophen 500 Mg Tab) 1,000 mg PO Q8 KAL Stop: 10/04/23 21:59 Last Admin: 09/05/23 13:09 Dose: 1,000 mg Atorvastatin Calcium (Atorvastatin 40 Mg Tab) 40 mg PO QAM KAL Stop: 09/28/23 08:59 Last Admin: 09/05/23 08:10 Dose: 40 mg Bisacodyl (Bisacodyl 10 Mg Supp) 10 mg FL DAILY PRN PRN Reason: Constipation Stop: 10/04/23 15:29 Dextrose (Dextrose 50% 50 Ml Syringe) 25 - 50 ml IV UD PRN; Protocol PRN Reason: Hypoglycemia Protocol Stop: 09/27/23 17:29 Docusate Sodium (Docusate Sodium 100 Mg Cap) 100 mg PO BID [facility] Stop: 09/27/23 20:59 Last Admin: 09/05/23 08:11 Dose: 100 mg Doxycycline Hyclate (Doxycycline Hyclate 100 Mg Cap) 100 mg PO BID [facility] Stop: 10/16/23 20:59 Last Admin: 09/05/23 08:11 Dose: 100 mg Fluocinonide (Fluocinonide 0.05% Oint 15 Gm Tube) 1 appln EXT BID PRN PRN Reason: Rash Stop: 09/27/23 16:35 Glucagon (Glucagon For Inj 1 Mg Vial) 1 mg IM UD PRN; Protocol PRN Reason: Hypoglycemia Protocol Stop: 09/27/23 17:29 Glucose (Glucose 40% Gel 15 Gm Tube) 15 - 30 gm PO UD PRN; Protocol PRN Reason: Hypoglycemia Protocol Stop: 09/27/23 17:29 Glucose (Glucose 10 Tab/Tube) 4 - 8 tab PO UD PRN; Protocol PRN Reason: Hypoglycemia Protocol Stop: 09/27/23 17:29 Hydromorphone HCl (Hydromorphone Inj 0.5 Mg/0.5 Ml Syr) 0.5 mg IV Q4H PRN PRN Reason: Pain or Pre PT Stop: 09/18/23 15:29 Last Admin: 09/05/23 10:30 Dose: 0.5 mg Vancomycin HCl 750 mg/ Sodium (Chloride) 265 mls @ 200 mls/hr IV Q12H [facility] Stop: 10/10/23 05:59 Last Infusion: 09/05/23 08:05 Dose: Infused Sodium Chloride (Nss) 1,000 mls @ 75 mls/hr IV .[id number] [facility] Stop: 09/05/23 18:34 Last Admin: 09/05/23 05:23 Dose: 75 mls/hr Sodium Chloride (Nss) 1,000 mls @ 80 mls/hr IV .[id number] [facility] Stop: 10/05/23 13:29 Insulin Aspart (Insulin Aspart Per Unit Charge) 0 units SC ACHS [facility] Stop: 10/01/23 08:44 Last Admin: 09/05/23 12:04 Dose: 6 units Insulin Glargine (Lantus Per Unit Charge) 0 units SC BID [facility]; Protocol Stop: 10/01/23 20:59 Last Admin: 09/05/23 08:17 Dose: 5 units Ketorolac Tromethamine (Ketorolac Tromethamine 15 Mg/Ml Vial) 15 mg IV Q6H [facility] Stop: 09/10/23 06:59 Last Admin: 09/05/23 12:05 Dose: 15 mg Lactobacillus Acidophilus (Advanced Probiotic 625 Mg Capsule) 1,250 mg PO DAILY [facility] Stop: 09/29/23 12:29 Last Admin: 09/05/23 08:11 Dose: 1,250 mg Lorazepam (Lorazepam 0.5 Mg Tab) 0.5 mg PO Q24H PRN PRN Reason: Anxiety Stop: 09/27/23 16:35 Magnesium Hydroxide (Magnesium Hydroxide Susp 30 Ml Udc) 30 ml PO Q6H PRN PRN Reason: Constipation Stop: 10/04/23 15:29 Magnesium Oxide (Magnesium Oxide 400 Mg Tab) 400 mg PO BID [facility] Stop: 09/30/23 08:59 Last Admin: 09/05/23 08:12 Dose: 400 mg Metoclopramide HCl (Metoclopramide Hcl Inj 5 Mg/Ml 2 Ml Vial) 10 mg IV Q6H PRN PRN Reason: Nausea And Vomiting Stop: 10/04/23 15:29 Metoprolol Succinate (Metoprolol Succ 25mg Ext Rel Tab) 25 mg PO QAM [facility] Stop: 09/28/23 08:59 Last Admin: 09/05/23 08:13 Dose: Not Given Miscellaneous (Carbohydrates For Hypoglycemia ) 15 - 30 gm PO UD PRN PRN Reason: Hypoglycemia Treatment Stop: 09/27/23 17:29 Miscellaneous Information (Pharmacy Glycemic Mgmt Consult) 1 each N/A UD PRN PRN Reason: Consult Stop: 09/27/23 16:35 Miscellaneous Information (Vancomycin Consult Active) 1 each N/A UD PRN PRN Reason: Consult Stop: 09/27/23 16:35 Multivitamins (Multivitamin Tab) 1 tab PO QAM [facility] Stop: 09/28/23 08:59 Last Admin: 09/05/23 08:13 Dose: 1 tab Naloxone HCl (Naloxone Hcl 0.4 Mg/1 Ml Vial/Carp) 0.1 mg IV Q5M PRN PRN Reason: Oversedation/Resp Depression Stop: 09/27/23 16:35 Ondansetron HCl (Ondansetron Inj 2 Mg/Ml 2 Ml Vial) 4 mg IV Q6H PRN PRN Reason: Nausea And Vomiting Stop: 10/04/23 15:29 Oxycodone HCl (Oxycodone Hcl Ir 5 Mg Tab (Immediate Release)) 5 - 10 mg PO Q4H PRN PRN Reason: Pain or Pre PT Stop: 09/18/23 15:29 Last Admin: 09/05/23 09:00 Dose: 10 mg Pregabalin (Pregabalin 100 Mg Cap) 100 mg PO TID [facility] Stop: 09/27/23 20:59 Last Admin: 09/05/23 13:09 Dose: 100 mg Sennosides (Senna 8.6 Mg Tab) 17.2 mg PO HS [facility] Stop: 09/27/23 20:59 Last Admin: 09/04/23 20:06 Dose: 17.2 mg Sertraline HCl (Sertraline Hcl 50 Mg Tablet) 150 mg PO QAM [facility] Stop: 09/28/23 08:59 Last Admin: 09/05/23 08:13 Dose: 150 mg Spironolactone (Spironolactone 12.5 Mg Tab) 12.5 mg PO QAM [facility] Stop: 09/28/23 08:59 Last Admin: 09/05/23 08:13 Dose: 12.5 mg Tamsulosin HCl (Tamsulosin Hcl 0.4 Mg Cap) 0.8 mg PO QAM [facility] Stop: 09/28/23 08:59 Last Admin: 09/05/23 08:14 Dose: 0.8 mg Torsemide (Torsemide 100 Mg Tab) 50 mg PO QAM [facility] Stop: 09/28/23 08:59 Last Admin: 09/05/23 08:14 Dose: 50 mg Verapamil HCl (Verapamil Hcl 40 Mg Tab) 120 mg PO Q2D [facility] Stop: 09/28/23 08:59 Last Admin: 09/04/23 08:27 Dose: 120 mg (3) DM type 2 (diabetes mellitus, type 2) Diabetes mellitus complication detail: with polyneuropathy Diabetes mellitus complication status: with neurologic complications Diabetes mellitus terminal system operator insulin use: with terminal system operator use Qualified Code(s): E11.42 - Type 2 diabetes mellitus with diabetic polyneuropathy; Z79.4 - retirement (current) use of insulin (7) HTN (hypertension) Hypertension type: primary hypertension Qualified Code(s): I10 - Essential (primary) hypertension
--- NOTE | 2023-09-05 15:23 | Infectious Disease Progress Nt ---
Date of Service September 05, 2023 Assessment & Plan (1) Septic arthritis of knee, right: (2) Osteoarthritis of right knee: (3) Status post left knee replacement: Plan This is a 72-year-old male with past medical history of DM2, hypertension, PMR, osteoarthritis, pulmonary hypertension, recent left total knee arthroplasty on 06/09/2023 who presents for evaluation of right knee pain and I & D. He reports chronic bilateral knee pain for years secondary to osteoarthritis for which he has undergone steroid injections. His Left knee pain improved after Left arthroplasty in 05/2023. 2 weeks post procedure, he noted increasing right knee pain. He received a steroid injection on 06/27/2023. He was subsequently found to have a large right knee effusion and was evaluated by orthopedics. He was scheduled for an elective right knee arthroplasty. He presented on 08/28/23 for right knee arthroplasty but was found to have a large R knee effusion with erythema around the skin per report. Per operative report, when the arthrotomy was made there was a large amount of infected appearing synovial fluid from the joint. There was purulent appearing tissue within the knee joint with concern for septic knee. Soft tissue of the synovium was sent for pathology and culture. Fluid was not sent as it was suctioned early in procedure but appeared infected. Per Pathologist report to OR, there was high levels of PMNs in each section ( "between 7-30"). There appeared to be necrosis and wearing away of the chondral surface. There was concern for a chronic infection. Unfortunately, no synovial fluid was sent. The tissue was irrigated. He was started on IV vancomycin. OR Cultures NGTD. Pathology shows chronic active, hemosiderotic synovitis. ID consulted for probable right septic knee. On my initial evaluation, he complains of occasional sweats and right knee pain. He reports a slip and fall out of his wheelchair about 3-4 to weeks prior to admission. He denies break in skin, wounds or drainage. He denies fever, chills, nausea, vomiting, abdominal pain,or shortness of breath . Left knee pain is healing well psot prior surgery. He uses a wheelchair to get around. He is HDS. Labs noted for a WBC of 8.07, BUN 27, creatinine 1.09. Micro: Right knee aerobic/anaerobic culture, 08/27: Rare WBCs , no organisms seen, Cultures pending Antibiotics: Ancef / Vancomycin /6ongoing PATHOLOGY 08/27 FINAL DIAGNOSIS A. "Synovium", right knee: - Fibrin and acute inflammatory cells are seen. - Synovial tissue is not identified on microscopy. - Examination of this tissue under polarized light fails to reveal crystal deposition disease. - See comment. B. 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 - Please note that the chronic inflammatory infiltrate is moderate in intensity but the acute inflammatory infiltrate is mild in intensity and is found focally within the tissue. - Examination of this tissue under polarized light fails to reveal crystal deposition disease. In sum, thereis no evidence of gout or pseudogout in this case despite the pr esence of "strongly birefringent needle-shaped crystals consistent with uric acid crystals of gout" on a touch preparation of synovial tissue from the left knee # Possible Right [place] septic knee # S/P Left TKA , no issues #H/O Left Hip replacement with hardware # H/O Spinal fusion with Hardware Pathology of R knee synovium showed moderate chronic active hemosiderotic synovitis. No evidence gout or pseudogout. Intraop synovial tissue cx with no organisms on gram stain and CULTURES NGTD but not yet finalized. RTKA on hold but he appears on schedule today Recommendations: It is unclear cause of acute on chronic inflammation of right knee - Given findings from OR and pathology report, it is difficult to rule out infection I would favor holding on hardware placement and treat for septic knee with 3-4 weeks of antibiotics. Cultures can take some time to grow and may not grow. We also dont have fluid cultures. I'll ask micro if they can send for 16s PCR. I am suspicious of an acute infection on chronic gout/pseudogout. Lyme disease also on differential. ----- UPDATE: Spoke with Dr. Dee from Orthopaedics, see my addended note from yesterday. He does not believe there is an infection in joint space. He reviewed path findings with pathologist and no infectious findings on path. Tissue culture is negative. Patient went to OR on 09/03 for TKA and reviewed Dr. Lynn note and no intraop findings of infection. At this time, after d/w Dr. Dee and updated findings will dc antibiotics. Will DC ABX Ortho team to consult ID if any further c/f infections Will sign off please call me with any questions. Yu Pratt MD [facility], ID Division Admission and Anticipated Discharge Date Admission Date: August 30, 2023 Subjective This patient recommendation is based on a telemedicine consult request which was completed asynchronously through chart review and information provided by the primary physician. The patient was not seen or examined today. The evaluation is consultative in nature and all patient care and treatment decisions can either be accepted or rejected by the patient's primary hospital-based treating physician using their own independent medical judgment for their patient. Time Spent Reviewing Chart: 21 - 30 minutes Results & Data Vital Signs (Past 12 Hours) Vital Signs Temp Pulse Resp BP BP Pulse Ox O2 Del Method 09/05/23 14:38 94/52 L 09/05/23 12:30 36.7 C 76 16 95/53 L 97 Room Air 09/05/23 07:50 36.7 C 71 16 113/64 95 Room Air 09/05/23 04:53 36.9 C 76 18 95/57 L 100/54 L 97 Room Air
[2023-09-06 06:43] LABS: Hemoglobin 7.6 g/dl (14.0-18.0); Mean Corpuscular Hemoglobin 23.2 pg (25.0-34.0); Mean Corpuscular Hgb Conc 30.4 g/dL (32.0-36.0); Mean Corpuscular Volume 76.2 fL (80.0-100.0); Mean Platelet Volume 8.9 fL (9.4-12.4); Platelet Count 263 K/uL (130-400); RDW Coefficient of Variation 17.7 % (11.5-14.5); RDW Standard Deviation 48.1 fL (36.4-46.3); Red Blood Count 3.28 M/uL (4.70-6.10); White Blood Count 6.31 K/ul (4.8-10.8)
[2023-09-06 07:00] LABS: BUN Creatinine Ratio 27.6 (10-20); Calcium 7.7 mg/dl (8.6-10.3); Creatinine Clr Calc Pharmacy 62.3 ml/min; Est GFR (African American) 65.9 ml/min; Est GFR (Non-African American) 56.9 ml/min; Magnesium 1.8 mg/dl (1.7-2.4); Phosphorus 4.4 mg/dl (2.5-4.9); Potassium 4.4 mmol/L (3.5-5.1)
--- NOTE | 2023-09-06 07:05 | Orthopedic Progress Note ---
Date of Service September 06, 2023 Assessment & Plan (1) Status post right knee replacement: Overall he seems to be doing okay. His pain in his right knee is improving. We will stop the IV antibiotics. He will be discharged home on cefadroxil for 10 days. This is used on any repeat surgery on her knee replacement. We will continue the narcotics and that Toradol for pain control. He is on aspirin for DVT prophylaxis. He is orthopedically stable for discharge to [facility] when a bed becomes available. He will follow-up orthopedics in 2 weeks. George Salazar was seen and examined at bedside this morning. Overall he is doing okay. He is a little bit less pain yesterday. He is able to participate well with physical therapy. He is currently awaiting placement to [facility].. Review of Systems All systems reviewed & are unremarkable except as noted in HPI & below. Physical Exam On physical lamination the right knee, the dressing is clean and dry. His legs out full extension. He has active dorsiflexion plantarflexion of the right ankle.. Results & Data Results & Data Laboratory Results . Diagnostic Findings . PG Care Time/CCT Total # of Minutes Spent Total Time Spent with Patient: Total time spent is greater than 50% in coordination of care (as documented) at patient's floor/unit and/or counseling patient: Coding Level of Care Code 83009 Post Operative Follow-Up Diagnoses Status post right knee replacement Z96.651
[2023-09-06] MEDS ORDERED: SODIUM CHLORIDE 0.9% 250 ML IV PRN (07:43)
--- NOTE | 2023-09-06 07:51 | Communication Note ---
Date of Service: September 06, 2023 His H&H came back this morning at 7.6 and 25.0. He did look a little bit pale this morning. I decided to transfuse with 2 units of packed red blood cells. Hopefully this will give him a little bit more energy and recent H&H show he is safe for discharge to a rehab facility. We will hold on discharge for today. We are still planning on discharge to [facility] tomorrow.
--- NOTE | 2023-09-06 17:19 | Hospitalist Progress Note ---
Date of Service September 06, 2023 Assessment & Plan (1) Septic arthritis of knee, right: (2) Osteoarthritis of right knee: (3) DM type 2 (diabetes mellitus, type 2): (4) Chronic kidney disease (CKD), stage III (moderate): (5) Mild aortic stenosis: (6) H/O cardiac arrest: (7) HTN (hypertension): (8) Anxiety: (9) Status post right knee replacement: Plan per previous hospitalist notes with addendum: Pt is a 72 yo M with PMHx significant for diabetes, hypertension, PMR, OA, pulmonary hypertension, HENRIK and COPD presenting for I& D of right knee. Septic arthritis of knee, right Planned for R TKA, however, there was evidence of infection. Synovial fluid analysis and path - negative Continued on vancomycin No evidence of sepsis Cont per orthopedics ID consulted by camden santana recs Cont. vancomycin, ceftriaxone added as per ID Discussed with surgery and ID Pt is now s/p surg. repair of his R knee. Low suspicion of infection at this time. Per ID - will stop abx now 09/05 abx discontinued afebrile monitor Anemia Hg 7.4 2 units pRBCs ordered check FOBT will review [facility] records Osteoarthritis of right knee Pain control as needed in post op state. Of note, he typically takes hydrocodone 10/325mg QID. As he is now on scheduled Tylenol, was placed on oxycodone q6h to avoid overdosing on acetaminophen. DM type 2 (diabetes mellitus, type 2) Insulin dependent and on Ozempic. A1C is 7.9 from 08/02/23. glycemic pharmacy consulted pt typically takes 30 to 45 units of lantus once daily and doesn't use short acting insulin. 113 --> 151 Chronic kidney disease (CKD), stage III (moderate) chronic, stable. Mild aortic stenosis ELBERT heard on exam Discontinued maintenance fluids that were running to avoid fluid overload This patient is not very mobile at this point On Torsemide 09/05 appears euvolemic at this point H/O cardiac arrest h/o prior cardiac arrest in Feb 2017 intra-operatively, thought to be due to hypoxia/apnea followed by a bradyarrhythmia and wide complex arrhythmia. Echo and stress test following event did not suggest cardiac etiology. HTN (hypertension) chronic, at goal Cont home meds including Demadex, spironolactone, verapamil, Toprol XL Anxiety chronic, stable. Cont sertraline per home regimen DVT proph: ASA 81mg PO BID per primary team Full Code Dispo-Plan for rehab. Admission and Anticipated Discharge Date Admission Date: August 30, 2023 Subjective ff up for s/p R knee surgery, etc seen resting in bed, comfortable states he feels fine overall no chest pain, dyspnea, palpitations, dizziness has R knee pain, pain meds relieving no melena, hematochezia or other signs of bleeding no other new symptoms Review of Systems Review of Systems: all noted and negative except for above Physical Exam Physical Exam: General- oriented x 3, not in distress, speaks in sentences with no effort or accessory muscle use Eyes- anicteric Neck- no JVD Lungs- clear breath sounds bilaterally, no crackles/wheezing Heart- normal rate, regular rhythm; no murmurs Abdomen- normal bowel sounds, nondistended, soft, no tenderness Extremities- R knee: dressing in place no pretibial edema, no calf tenderness Neuro- alert, oriented x 3; no gross focal neurologic deficits Skin- warm & dry Results & Data Results & Data Vital Signs (Past 12 Hours) Vital Signs Temp Pulse Pulse Resp BP BP Pulse Ox 09/06/23 15:38 36.7 C 74 16 144/73 H 97 09/06/23 14:56 36.8 C 67 16 123/67 98 09/06/23 13:56 36.8 C 66 16 110/59 L 97 09/06/23 13:26 36.7 C 70 18 103/57 L 94 09/06/23 13:11 36.7 C 69 18 129/77 95 09/06/23 12:51 36.5 C 75 16 107/61 97 09/06/23 12:41 97 09/06/23 12:36 36.7 C 73 16 92/56 L 95 09/06/23 11:03 37.1 C 18 119/72 96 09/06/23 10:33 36.8 C 64 16 108/62 95 09/06/23 10:18 36.7 C 61 16 106/60 94 09/06/23 10:15 36.8 C 66 18 104/57 L 97 09/06/23 09:58 36.4 C L 71 16 107/58 L 97 09/06/23 07:59 37.0 C 81 16 122/62 94 O2 Del Method 09/06/23 15:38 09/06/23 14:56 09/06/23 13:56 09/06/23 13:26 09/06/23 13:11 09/06/23 12:51 09/06/23 12:41 09/06/23 12:36 09/06/23 11:03 09/06/23 10:33 09/06/23 10:18 09/06/23 10:15 09/06/23 09:58 09/06/23 07:59 Room Air (3) DM type 2 (diabetes mellitus, type 2) Diabetes mellitus ocean transportation intermediary insulin use: with ocean transportation intermediary use Diabetes mellitus complication status: with neurologic complications Diabetes mellitus complication detail: with polyneuropathy Qualified Code(s): E11.42 - Type 2 diabetes mellitus with diabetic polyneuropathy; Z79.4 - [facility] (current) use of insulin (7) HTN (hypertension) Hypertension type: primary hypertension Qualified Code(s): I10 - Essential (primary) hypertension
[2023-09-07] MEDS: MAGNESIUM HYDROXIDE SUSP 30 ML UDC PO PRN (07:35)
[2023-09-07 09:30] LABS: Basophils # (auto) 0.06 K/uL (0.00-0.20); Basophils % (auto) 0.8 %; Eosinophils # (auto) 0.27 K/uL (0.00-0.50); Eosinophils % (auto) 3.7 %; Hematocrit (blood only) 31.9 % (42.0-52.0); Hemoglobin 9.7 g/dl (14.0-18.0); Immature Granulocytes # (auto) 0.05 K/uL (0.01-0.20); Immature Granulocytes % (auto) 0.7 %; Mean Corpuscular Hemoglobin 23.4 pg (25.0-34.0); Mean Corpuscular Hgb Conc 30.4 g/dL (32.0-36.0); Mean Corpuscular Volume 76.9 fL (80.0-100.0); Mean Platelet Volume 8.2 fL (9.4-12.4); Monocytes # (auto) 0.66 K/uL (0.11-0.59); Monocytes % (auto) 9.1 %; Neutrophils # (auto) 5.44 K/uL (1.40-6.50); Neutrophils % (auto) 74.7 %; Platelet Count 308 K/uL (130-400); RDW Coefficient of Variation 17.2 % (11.5-14.5); RDW Standard Deviation 47.5 fL (36.4-46.3); Red Blood Count 4.15 M/uL (4.70-6.10); White Blood Count 7.28 K/ul (4.8-10.8)
[2023-09-07 09:46] LABS: BUN Creatinine Ratio 28.4 (10-20); Calcium 8.4 mg/dl (8.6-10.3); Est GFR (African American) 61.8 ml/min; Est GFR (Non-African American) 53.3 ml/min; Potassium 4.7 mmol/L (3.5-5.1)
[2023-09-07] MEDS: SODIUM CHLORIDE 0.9% 250 ML IV ONE (12:15)
--- NOTE | 2023-09-07 12:34 | Orthopedic Progress Note ---
Date of Service September 07, 2023 Assessment & Plan (1) Status post right knee replacement: Overall he is doing better. He is currently awaiting discharge to [facility]. He can be discharged today if a bed to be available. If not we can discharge him tomorrow. He is on aspirin for DVT prophylaxis. George Collins was seen and examined at bedside this morning. Overall is doing very well. Is not having much pain in the right knee. He has been up and ambulating. He is feeling better since the transfusion. He is no complaints.. Review of Systems All systems reviewed & are unremarkable except as noted in HPI & below. Physical Exam On physical examination of the right knee, the dressing is clean and dry. He is sitting in the chair at bedside.. Results & Data Results & Data Laboratory Results . Diagnostic Findings . PG Care Time/CCT Total # of Minutes Spent Total Time Spent with Patient: Total time spent is greater than 50% in coordination of care (as documented) at patient's floor/unit and/or counseling patient: Coding Level of Care Code 53569 Post Operative Follow-Up Diagnoses Status post right knee replacement Z96.651
[2023-09-07] MEDS: SODIUM CHLORIDE 0.9% 1,000 ML IV SCH (12:41)
[2023-09-07] MEDS ORDERED: bisacodyL 10 MG SUPP PR PRN (13:14)
[2023-09-07] MEDS: bisacodyL 10 MG SUPP PR PRN (15:48)
--- NOTE | 2023-09-07 16:44 | Hospitalist Progress Note ---
Date of Service September 07, 2023 Assessment & Plan (1) Septic arthritis of knee, right: (2) Osteoarthritis of right knee: (3) DM type 2 (diabetes mellitus, type 2): (4) Chronic kidney disease (CKD), stage III (moderate): (5) Mild aortic stenosis: (6) H/O cardiac arrest: (7) HTN (hypertension): (8) Anxiety: (9) Status post right knee replacement: Plan per previous hospitalist notes with addendum: Pt is a 72 yo M with PMHx significant for diabetes, hypertension, PMR, OA, pulmonary hypertension, HENRIK and COPD presenting for I& D of right knee. Septic arthritis of knee, right Planned for R TKA, however, there was evidence of infection. Synovial fluid analysis and path - negative Continued on vancomycin No evidence of sepsis Cont per orthopedics ID consulted by camden santana recs Cont. vancomycin, ceftriaxone added as per ID Discussed with surgery and ID Pt is now s/p surg. repair of his R knee. Low suspicion of infection at this time. Per ID - will stop abx now 09/06 abx discontinued afebrile monitor Anemia Hg 7.4 2 units pRBCs ordered check FOBT will review [facility] records 09/06 Anemia of chronic disease, CKD, iron deficiency as per [facility] record Hemoglobin improved to 10 Monitor closely Marginal blood pressure Hold diuretics IV NSS ordered Monitor closely Constipation KUB: 1. Nonobstructive bowel gas pattern. 2. Extensive colonic fecal retention. Lactulose, enema ordered if without bowel movement Osteoarthritis of right knee Pain control as needed in post op state. Of note, he typically takes hydrocodone 10/325mg QID. As he is now on scheduled Tylenol, was placed on oxycodone q6h to avoid overdosing on acetaminophen. DM type 2 (diabetes mellitus, type 2) Insulin dependent and on Ozempic. A1C is 7.9 from 08/02/23. glycemic pharmacy consulted pt typically takes 30 to 45 units of lantus once daily and doesn't use short act ing insulin. 113 --> 151--> 154 Chronic kidney disease (CKD), stage III (moderate) chronic, stable. Mild aortic stenosis ELBERT heard on exam Discontinued maintenance fluids that were running to avoid fluid overload This patient is not very mobile at this point On Torsemide 09/06 appears euvolemic at this point H/O cardiac arrest h/o prior cardiac arrest in Feb 2017 intra-operatively, thought to be due to hypoxia/apnea followed by a bradyarrhythmia and wide complex arrhythmia. Echo and stress test following event did not suggest cardiac etiology. HTN (hypertension) chronic, at goal Cont home meds including Demadex, spironolactone, verapamil, Toprol XL Anxiety chronic, stable. Cont sertraline per home regimen DVT proph: ASA 81mg PO BID per primary team Full Code Dispo-Plan for rehab. Admission and Anticipated Discharge Date Admission Date: August 30, 2023 Subjective Follow-up status post right knee surgery, etc. Seen resting in bed, comfortable, watching TV States he feels fine overall Blood pressure noted to be on the lower side earlier today Positive constipation since Monday, no nausea or vomiting No abdominal pain No other new symptoms Review of Systems Review of Systems: all noted and negative except for above Physical Exam Physical Exam: General- oriented x 3, not in distress, speaks in sentences with no effort or accessory muscle use Eyes- anicteric Neck- no JVD Lungs- clear breath sounds bilaterally, no rales/wheezes Heart- normal rate, regular rhythm; no murmurs Abdomen- normal bowel sounds, nondistended, soft, no tenderness Extremities- no pretibial edema, no calf tenderness Neuro- alert, oriented x 3; no gross focal neurologic deficits Skin- warm & dry Results & Data Results & Data Vital Signs (Past 12 Hours) Vital Signs Temp Pulse Resp BP Pulse Ox O2 Del Method 09/07/23 14:40 36.7 C 64 17 125/69 97 Room Air 09/07/23 10:45 68 102/58 L 95 Room Air 09/07/23 07:10 36.7 C 63 17 118/64 95 Room Air (3) DM type 2 (diabetes mellitus, type 2) Diabetes mellitus complication detail: with polyneuropathy Diabetes mellitus complication status: with neurologic complications Diabetes mellitus long term care phlebotomist insulin use: with detention use Qualified Code(s): E11.42 - Type 2 diabetes mellitus with diabetic polyneuropathy; Z79.4 - petroleum terminal plant operator (current) use of insulin (7) HTN (hypertension) Hypertension type: primary hypertension Qualified Code(s): I10 - Essential (primary) hypertension
--- NOTE | 2023-09-07 17:22 | XRay Report ---
KUB HISTORY: Acute generalized abdominal pain constipation, r/o ileus COMPARISON: CT 02/14/2022 FINDINGS: Extensive colonic fecal retention. Nonobstructive bowel gas pattern. Renal shadows are obsc ured by bowel gas. Vascular calcifications of the pelvis. No renal calculi. No ureteral calculi. No pneumoperitoneum or pneumatosis. Left hip arthroplasty. Degenerative changes of the spine with lumbar spinal fusion hardware. No fracture. IMPRESSION: 1. Nonobstructive bowel gas pattern. 2. Extensive colonic fecal retention. ACT 112: Negative or not required by law. The above report was generated using voice recognition software. It may contain grammatical, syntax o r spelling errors. Electronically signed by: Anirudh Michelle M.D. 09/07/2023 5:20 PM
[2023-09-07] MEDS: SOD PHOSPHATE/SOD BIPHOSPHATE ENEMA 132 ML BTL PR STA (19:23)
[2023-09-07] MEDS: LACTULOSE SYRUP 20 GM/30 ML UDC PO PRN (22:59)
--- NOTE | 2023-09-08 13:33 | Orthopedic Progress Note ---
Date of Service September 08, 2023 Assessment & Plan (1) Status post right knee replacement: Overall he is doing much better. He has been up and ambulating. His knee is feeling much better. He is on aspirin for DVT prophylaxis. He can be discharged to rehab today. He will follow-up with orthopedics in 2 weeks. George Salazar was seen and examined bedside this morning. Overall is doing very well. He is not having much pain in the right knee. He has been up and ambulating. He he has no complaints.. Review of Systems All systems reviewed & are unremarkable except as noted in HPI & below. Physical Exam On physical examination of the right knee, the dressing is clean and dry. He is sitting in a chair at bedside. He is neurovascular intact.. Results & Data Results & Data Laboratory Results . Diagnostic Findings . PG Care Time/CCT Total # of Minutes Spent Total Time Spent with Patient: Total time spent is greater than 50% in coordination of care (as documented) at patient's floor/unit and/or counseling patient: Coding Level of Care Code 66916 Post Operative Follow-Up Diagnoses Status post right knee replacement Z96.651
--- NOTE | 2023-09-08 13:36 | Discharge Summary ---
Date of Service September 08, 2023 Principal Diagnosis Same as "Discharge Diagnosis" noted below under Discharge Instructions. Discharge Exam On physical examination of the right knee, the dressing is clean and dry. He is sitting in a chair at bedside. He is neurovascular intact.. Discharge Data Consultations 08/28/23 16:36 Consult Hospitalist Routine Consult Infectious Diseases Routine Procedures Performed Operation Date: 09/04/23 13:00 Actual Procedures p Right Total Knee Arthroplasty(Right) - Arian Dee DO Ordered Studies 08/28/23 12:52 US - OR guided needle placemen Routine 09/04/23 12:50 US - OR guided needle placemen Routine Hospital Course (1) Status post right knee replacement: On August 28, 2023 Martin arrived at [facility] for a right knee replacement. When the arthrotomy was done for the knee replacement there was a large amount of cloudy fluid that came out of the knee. There was a concern for possible infection. Tissue cultures were taken and they showed high levels of inflammation. Given the information I had I did not feel safe implanting a knee replacement. He was kept in the hospital and the hospitalist and infectious disease were consulted. I spoke with the pathologist in detail as he was able to get a better look at the tissue samples. He did not see the acute inflammatory cells that you would normally see in infection. The cultures then came back negative after 5 days. He was still hoping to have his knee replaced. After speaking with the pathologist, and with the fact that the cultures were negative, we elected to proceed with a right total knee arthroplasty. On September 04, 2023 she underwent a right knee replacement without complication. Postoperatively he was started on aspirin for DVT prophylaxis and placed back on the orthopedic floors. He did fairly well. He did require 2 units of packed red blood cells to help with some postoperative anemia. He was able to participate well with physical therapy. He was then discharged to [facility]. He will follow-up with orthopedics in 2 weeks. PG Care Time/CCT Total # of Minutes Spent Total Time Spent with Patient: Total time spent is greater than 50% in coordination of care (as documented) at patient's floor/unit and/or counseling patient: Discharge Plan Discharge Items Patient Disposition: Transfer Care Home Fac Reason For Visit: POST OP Discharge Diagnosis: Right knee replacement Activity: As commented below Non-emergency contact: Surgeon Call non-emergency contact if: your wound has increased redness and your wound has increased drainage Follow-up/Referrals: Matilde Mauricio DO [Primary Care Provider] - Diet: Regular Addtl Attending Provider Instructions: Activity and Therapy Recommendations: * If you are using [facility] then therapy will be provided at your home until they feel you have accomplished all of your goals. * If you are using [facility] then Physical Therapy will be provided until they feel you are ready to start Outpatient Physical Therapy. * If you are not using home therapy then Outpatient Physical Therapy should start about 3-5 days from your day of surgery. Therapy will last about 6-10 weeks * It is important not to put a pillow under your knee when you are relaxing or sleeping. It is just as important to make sure you are getting your knee perfectly straight as it is to regain your knee bend. * You were shown a series of exercises in the hospital. Do these exercises three times each day including the exercises you were shown in physical therapy. * Get up and walk several times each day. For the first four weeks, try not to stand or walk for more than one hour at a time. If you do stand or walk for more than one hour, you will not hurt anything, but your leg will likely swell. * As you feel comfortable, you may change from the walker or crutches to a cane and then to independent walking. Medications: * Narcotic You will likely be sent home from the hospital with a prescription for the narcotic pain medication that worked best throughout your stay. * Cefadroxil -take the antibiotic twice a day for 10 days to help with infection. * Aspirin Most patients will be required to take Aspirin 81mg twice a day for 6 weeks after surgery. This is obtained [id number] and a prescription is not necessary. * Other medications may be prescribed for specific circumstances. If you have any questions, please call the office at . * Resume previous home medications unless otherwise instructed TEDs/Elastic Stockings: The white elastic stockings help limit swelling and prevent blood clots from forming in your legs.~ The more you wear them, the more they work. Wear them for six weeks. Dressing Care: The dressing can be changed after physical therapy on postop day #1. Daily dry dressing changes for a few days, especially if the incision is still draining some. If the incision is not draining then you may leave the yannick open to air. If there is a little bit of drainage or if the yannick are getting stuck on your clothing then cover the incision with a dry dressing. The yannick will be removed at your 2 week follow-up appointment. Showering: You may shower 5 days from the day of surgery as long as the incision is no longer draining. You may shower with the yannick exposed. Let soapy water run over the yannick and pat them dry. Do not scrub or soak the incision. Things To Watch For: * Drainage from the incision site that occurs more than one week after your surgery. * Increased redness at the incision site. * Fever above 102 degrees Fahrenheit. * Unusual chest pain or shortness of breath. * Call [facility] at with any of the above problems Follow-Up Visit: Follow-up with Dr. Dee's PA (Arian Hahn) 2-3 weeks after your day of surge ry. He will remove your yannick and answer any questions. If you have any additional questions or concerns, Dr Dee is usually in the office at the same time and will be available An appointment was probably scheduled when you signed-up for surgery in the office. If you have any questions call Office Instructions: More detailed instructions as well as Frequently Asked Questions were provided in a folder by our office when you signed-up for surgery. Please review these instructions when you get home. If you have any further questions or concerns, please feel free to call the office at [phone] Addtl [employer] Team Member Provider Instructions: TORSEMIDE AND SPIRONOLACTONE HELD DUE TO EPISODE OF LOW BLOOD PRESSURE. RESUME IN 1-2 DAYS ONCE BLOOD PRESSURE REMAINS CONSISTENTLY STABLE. PATIENT CONSTIPATED. GIVEN ENEMA TWICE. CONSIDER GOLYTELY IF STILL WITHOUT GOOD BM. DAILY LAXATIVE. MONITOR CBC. PATIENT RECEIVES EPOETIN ALPHA 40,000 IU subq weekly for Hgb <11 Pending Studies at Discharge: No Stand-Alone Forms: [facility] Skilled Items Patient informed of condition?: Yes DNR: No Discharge Level of Care: Skilled Communicable Disease: No Discharge Prognosis: Improving Lines: None Urinary Catheter: No Medications and DC Order Prescriptions: New oxycodone 5 mg Tablet 5 mg PO Q6H PRN (Reason: moderate to severe pain) Qty: 20 0RF magnesium hydroxide [Milk of Magnesia] 400 mg/5 mL Suspension 30 ml PO Q6H PRN (Reason: constipation) Qty: 355 0RF Advanced Probiotic 625 mg (10 billion cell) Capsule 1 cap PO DAILY 30 Days Qty: 30 0RF magnesium oxide 400 mg (241.3 mg magnesium) Tablet 400 mg PO BID 30 Days Qty: 60 0RF aspirin [Ecotrin Low Strength] 81 mg tablet,delayed release (DR/EC) 81 mg PO BID Qty: 84 0RF Rx Instructions: always with full stomach cefadroxil 500 mg capsule 500 mg PO BID 10 Days Qty: 20 0RF Continued (DME) CPAP Machine Misc See Rx Instructions .ROUTE .MEDSUPPLY Qty: 1 0RF Rx Instructions: 8 cmH2O, mask fit to patient comfort, heated humidification, compliance download capabilities, DME: [facility] fluocinonide 0.05 % Ointment 1 applic TOPICAL BID PRN (Reason: Rash) lorazepam 0.5 mg Tablet 0.5 mg PO DAILY PRN (Reason: Anxiety) atorvastatin 40 mg Tablet 40 mg PO QAM 30 Days Qty: 30 0RF verapamil 120 mg Tablet 120 mg PO Q2D 30 Days Qty: 15 0RF tamsulosin 0.4 mg capsule 0.8 mg PO QAM 30 Days Qty: 30 0RF pantoprazole 40 mg Tablet,Delayed Release (Dr/Ec) 40 mg PO QAM 30 Days Qty: 30 0RF folic acid 1 mg tablet 1 mg PO QAM 30 Days Qty: 30 0RF metoprolol succinate [Toprol XL] 25 mg Tablet Extended Release 24 Hr 25 mg PO QAM 30 Days Qty: 30 0RF polyethylene glycol 3350 [Miralax] 17 gram/dose Powder 17 g PO DAILY PRN (Reason: Constipation) 30 Days Qty: 119 2RF pregabalin 100 mg Capsule 100 mg PO TID 30 Days Qty: 90 0RF insulin glargine [Lantus Solostar U-100 Insulin] 100 unit/mL (3 mL) insulin pen 30 unit SUBCUT QAM 30 Days Qty: 9 2RF Rx Instructions: 30-45 Units depending on blood sugar cholecalciferol (vitamin D3) 2,000 unit Tablet 2,000 unit PO QAM 30 Days Qty: 30 0RF cyanocobalamin (vitamin B-12) [Vitamin B-12] 5,000 mcg Tablet, Sublingual 5,000 mcg SUBLINGUAL QAM 30 Days Qty: 30 0RF sertraline 150 mg Capsule 150 mg PO QAM 30 Days Qty: 30 0RF Ozempic 0.25 mg or 0.5 mg (2 mg/3 mL) Pen Injector 0.25 mg SUBCUT Q7D 30 Days Qty: 1.84 0RF Rx Instructions: Wed Changed acetaminophen 500 mg Tablet 1,000 mg PO Q8H PRN (Reason: Pain) Qty: 20 0RF Held torsemide 100 mg tablet 50 mg PO QAM Hold Instructions: Resume on 09/10/23. RESUME ONCE BLOOD PRESSURE IS CONSISTENTLY STABLE, NO HYPOTENSION. spironolactone 25 mg Tablet 12.5 mg PO QAM Hold Instructions: Resume on 09/10/23. RESUME ONCE BLOOD PRESSURE IS CONSISTENTLY STABLE, NO HYPOTENSION. Discontinued hydrocodone-acetaminophen 10-325 mg tablet 1 tab PO Q6H PRN (Reason: Pain (Scale Score 7-10)) Discharge Orders: Discharge Order (Routine); Ordered 09/07/23 Ordered By: Arian Dee Admission Data Admit Date/Time: 08/30/23 09:50 Attending Provider: Arian Dee Admit Provider: Arian Dee Primary Care Provider: Matilde Mauricio Other Providers: India Sarkar; Loyda Hunter; Michael Clifton; Yu Pratt; Madina Gonzales; Marvin Griggs; Charity Christopher; Hilda Brian; IRB Approved Study,Giovanny Other Interventions: Discharge Summary Assessment (RN) Last Done: 09/08/23 11:12
== END 2023-09-08 14:30 | DRG 470 ==
LOC: 3E 10:19 → ASU 10:19
DX: M17.11 Unilateral primary osteoarthritis, right knee; I27.20 Pulmonary hypertension, unspecified; N18.30 Chronic kidney disease, stage 3 unspecified; I50.9 Heart failure, unspecified; J44.9 Chronic obstructive pulmonary disease, unspecified; I13.0 Hypertensive heart and chronic kidney disease with heart failure and stage 1 through stage 4 chronic kidney disease, or unspecified chronic kidney disease; D50.9 Iron deficiency anemia, unspecified; M65.161 Other infective (teno)synovitis, right knee; Z79.4 Long term (current) use of insulin; Z79.899 Other long term (current) drug therapy; E11.42 Type 2 diabetes mellitus with diabetic polyneuropathy; F41.9 Anxiety disorder, unspecified; Z79.85 Long-term (current) use of injectable non-insulin antidiabetic drugs; M00.9 Pyogenic arthritis, unspecified; G47.33 Obstructive sleep apnea (adult) (pediatric); I35.0 Nonrheumatic aortic (valve) stenosis; Z87.891 Personal history of nicotine dependence; E78.5 Hyperlipidemia, unspecified; Z96.652 Presence of left artificial knee joint

== ENCOUNTER 2024-11-04 10:04 | Inpatient (IN) ==
--- NOTE | 2024-09-25 09:06 | PAT Medication Instructions ---
Medication Instructions Date of Service September 25, 2024 Home Medications Medication Instructions Recorded CPAP Machine #1 ea 09/21/22 acetaminophen 500 mg tablet 1,000 mg (2 x 500 mg) PO Q8H PRN 09/08/23 Pain #20 tabs atorvastatin 40 mg tablet 40 mg PO QAM 30 days #30 tabs 09/08/23 cholecalciferol (vitamin D3) 50 2,000 unit PO QAM 30 days #30 tabs 09/08/23 mcg (2,000 unit) tablet cyanocobalamin (vitamin B-12) 5,000 mcg sublingual QAM 30 days 09/08/23 5,000 mcg sublingual tablet #30 tabs (Vitamin B-12) folic acid 1 mg tablet 1 mg PO QAM 30 days #30 tabs 09/08/23 insulin glargine 100 unit/mL (3 30 unit (0.3 mL) subcut QAM 30 09/08/23 mL) subcutaneous pen (Lantus days #9 mL Solostar U-100 Insulin) magnesium hydroxide 400 mg/5 mL 30 ml PO Q6H PRN constipation #355 09/08/23 oral suspension (Milk of Magnesia) mL metoprolol succinate 25 mg 25 mg PO QAM 30 days #30 tabs 09/08/23 tablet,extended release 24 hr (Toprol XL) pantoprazole 40 mg tablet,delayed 40 mg PO QAM 30 days #30 tabs 09/08/23 release polyethylene glycol 3350 17 17 g PO DAILY PRN Constipation 30 09/08/23 gram/dose oral powder (Miralax) days #119 grams pregabalin 100 mg capsule 100 mg PO TID 30 days #90 caps 09/08/23 sertraline 150 mg capsule 150 mg PO QAM 30 days #30 caps 09/08/23 tamsulosin 0.4 mg capsule 0.8 mg (2 x 0.4 mg) PO QAM 30 days 09/08/23 #30 caps verapamil 120 mg tablet 120 mg PO Q2D 30 days #15 tabs 09/08/23 fluocinonide 0.05 % topical ointment 1 applic topical BID PRN lorazepam 0.5 mg tablet 0.5 mg PO DAILY PRN spironolactone 25 mg tablet 12.5 mg PO QAM acetaminophen 500 mg tablet 1,000 mg (2 x 500 mg) PO Q8H PRN atorvastatin 40 mg tablet 40 mg PO QAM cholecalciferol (vitamin D3) 50 mcg (2,000 unit) tablet 2,000 unit PO QAM cyanocobalamin (vitamin B-12) 5,000 mcg sublingual tablet (Vitamin B-12) 5,000 mcg sublingual QAM folic acid 1 mg tablet 1 mg PO QAM insulin glargine 100 unit/mL (3 mL) subcutaneous pen (Lantus Solostar U-100 Insulin) 30 unit (0.3 mL) subcut QAM magnesium hydroxide 400 mg/5 mL oral suspension (Milk of Magnesia) 30 ml PO Q6H PRN metoprolol succinate 25 mg tablet,extended release 24 hr (Toprol XL) 25 mg PO QAM pantoprazole 40 mg tablet,delayed release 40 mg PO QAM polyethylene glycol 3350 17 gram/dose oral powder (Miralax) 17 g PO DAILY PRN pregabalin 100 mg capsule 100 mg PO TID sertraline 150 mg capsule 150 mg PO QAM tamsulosin 0.4 mg capsule 0.8 mg (2 x 0.4 mg) PO QAM verapamil 120 mg tablet 120 mg PO Q2D hydrocodone 10 mg-acetaminophen 325 mg tablet 1 tab PO Q6H PRN semaglutide 2 mg/dose (8 mg/3 mL) subcutaneous pen injector (Ozempic) 2 mg subcut WK torsemide 10 mg tablet 10 mg PO QAM STOP 7 days before surgery semaglutide 2 mg/dose (8 mg/3 mL) subcutaneous pen injector (Ozempic) 2 mg subcut WK Continue as directed verapamil 120 mg tablet 120 mg PO Q2D lorazepam 0.5 mg tablet 0.5 mg PO DAILY PRN(if needed) STOP taking 24 hours before surgery fluocinonide 0.05 % topical ointment 1 applic topical BID PRN DO NOT take the morning of surgery spironolactone 25 mg tablet 12.5 mg PO QAM cholecalciferol (vitamin D3) 50 mcg (2,000 unit) tablet 2,000 unit PO QAM cyanocobalamin (vitamin B-12) 5,000 mcg sublingual tablet (Vitamin B-12) 5,000 mcg sublingual QAM folic acid 1 mg tablet 1 mg PO QAM magnesium hydroxide 400 mg/5 mL oral suspension (Milk of Magnesia) 30 ml PO Q6H PRN polyethylene glycol 3350 17 gram/dose oral powder (Miralax) 17 g PO DAILY PRN torsemide 10 mg tablet 10 mg PO QAM Take morning of surgery With a small sip of water, OTHERWISE NOTHING TO EAT OR DRINK AFTER MIDNIGHT: acetaminophen 500 mg tablet 1,000 mg (2 x 500 mg) PO Q8H PRN(if needed) atorvastatin 40 mg tablet 40 mg PO QAM metoprolol succinate 25 mg tablet,extended release 24 hr (Toprol XL) 25 mg PO QAM pantoprazole 40 mg tablet,delayed release 40 mg PO QAM pregabalin 100 mg capsule 100 mg PO TID sertraline 150 mg capsule 150 mg PO QAM tamsulosin 0.4 mg capsule 0.8 mg (2 x 0.4 mg) PO QAM hydrocodone 10 mg-acetaminophen 325 mg tablet 1 tab PO Q6H PRN(if needed) Take evening before surgery acetaminophen 500 mg tablet 1,000 mg (2 x 500 mg) PO Q8H PRN(if needed) magnesium hydroxide 400 mg/5 mL oral suspension (Milk of Magnesia) 30 ml PO Q6H PRN(if needed) pregabalin 100 mg capsule 100 mg PO TID hydrocodone 10 mg-acetaminophen 325 mg tablet 1 tab PO Q6H PRN(if needed) Insulin Dependent Diabetic Patients * Test your blood sugar the morning of surgery * If Blood Sugar is GREATER THAN 150, take HALF of your regular dose of: insulin glargine 100 unit/mL (3 mL) subcutaneous pen (Lantus Solostar U-100 Insulin). * If Blood Sugar is LESS THAN 150, DO NOT TAKE ANY: insulin glargine 100 unit/mL (3 mL) subcutaneous pen (Lantus Solostar U-100 Insulin). Other Notes If you have any questions please call us at [phone] or [phone] or [phone] or [phone]
--- NOTE | 2024-09-26 11:35 | Anesthesiology Consultation ---
Date of Service September 26, 2024 Assessment & Plan (1) Encounter for pre-operative examination: Plan - check BSG am DOS. - awaiting [facility] cardiology and hematology clearances. Optimization forms to be faxed to each office. - Case discussed in detail with Dr. Vergara who advised patient will need updated cardiology clearance especially given that he will be in "beach chair position" sitting upright during surgery. Patient and surgeon's office aware, pt denied questions or concerns. Surgeon's office also aware will need [facility] hematology clearance given Hgb at 9. - semaglutide instructions: Patient informed at [facility] visit to stop 7 days prior to surgery-voiced understanding. Patient advised to check with prescriber to see if alternative diabetic management changes recommended while holding semaglutide-if so, patient to call back to [facility] to update chart and discuss if any further preop medication instructions needed. - Hx anesthesia/surgery complication: * Left DANY anterior (03/01/17): SAB at L3-4 at [facility] > Per [facility] discharge summary (03/08/17): Intraoperative bradycardia/unresponsive/hypotensive > CPR begun/epi > wide complex tachycardia s/p synchronized cardioversion shocks- transferred to ICU intubated. Stabilized next day and went back to OR to complete DANY. Tolerated procedure okay and sent back to ICU (extubated next day). Hx heavy ETOH use noted. * Noted per cardiology 12/2022 [facility]: "...stable from a cardiology standpoint to proceed with knee replacement...has had past issues with sedation which have been discussed, and cautious attention to be paid with regards to airway management and monitoring his cardiac rhythm...anticipate a low risk of perioperative cardiac complication..." * Pt has had anesthesia since (colonoscopy 2018, B/L cataracts 06/2022, left TKA 05/2023-glidescope 3) without similar issue. * s/p laparoscopic right inguinal hernia repair/excision of right axillary mass 02/05/24 [facility]: grade 1 view, MAC 4, ETT 7.5. - Outpatient joint pathway: Per surgeon's office and patient request for outpatient joint. I advised patient at [facility] he was not a candidate and he verbalized understanding, expressed he and surgeon felt it was unlikely, denied questions or concerns. Booking was changed by surgeon's office to overnight. Chart Review Chart Review: Pending: Refer to Additional Notes / Consult section and Patient seen in Pre Admission Testing Teaching & Discussion Pre-Anesthesia Teaching/Discussion Notes: Instructed NPO after midnight before surgery, except medications with 15 cc of water. Medication instructions provided according to the PAT guidelines. History Surgery Operation Date: 11/04/24 10:00 Proposed Procedures p Right Total Shoulder Arthroplasty Silvia - Arian Dee, Height/Weight Height: 5 ft 10.5 in Weight: 96.8 kg Allergies Allergy/AdvReac Type Severity Reaction Status Date / Time No Known Allergies Allergy Verified 09/24/24 14:20 Medications Home Medications Medication Instructions Recorded Confirmed Last Taken fluocinonide 0.05 % topical 1 applic topical BID PRN Rash 01/30/19 09/24/24 06/08/22 08:00 ointment lorazepam 0.5 mg tablet 0.5 mg PO DAILY PRN Anxiety 01/30/19 09/24/24 03/08/23 spironolactone 25 mg tablet 12.5 mg PO QAM 01/30/19 09/24/24 02/03/24 CPAP Machine #1 ea 09/21/22 08/28/23 Unknown acetaminophen 500 mg tablet 1,000 mg (2 x 500 mg) PO Q8H PRN 09/08/23 09/24/24 02/04/24 08:00 Pain #20 tabs atorvastatin 40 mg tablet 40 mg PO QAM 30 days #30 tabs 09/08/23 09/24/24 02/04/24 23:00 cholecalciferol (vitamin D3) 50 2,000 unit PO QAM 30 days #30 tabs 09/08/23 09/24/24 10/23/23 mcg (2,000 unit) tablet cyanocobalamin (vitamin B-12) 5,000 mcg sublingual QAM 30 days 09/08/23 09/24/24 10/23/23 5,000 mcg sublingual tablet #30 tabs (Vitamin B-12) folic acid 1 mg tablet 1 mg PO QAM 30 days #30 tabs 09/08/23 09/24/24 10/23/23 insulin glargine 100 unit/mL (3 30 unit (0.3 mL) subcut QAM 30 09/08/23 09/24/24 02/04/24 23:00 mL) subcutaneous pen (Lantus days #9 mL Solostar U-100 Insulin) magnesium hydroxide 400 mg/5 mL 30 ml PO Q6H PRN constipation #355 09/08/23 09/24/24 Unknown oral suspension (Milk of Magnesia) mL metoprolol succinate 25 mg 25 mg PO QAM 30 days #30 tabs 09/08/23 09/24/24 02/05/24 04:00 tablet,extended release 24 hr (Toprol XL) pantoprazole 40 mg tablet,delayed 40 mg PO QAM 30 days #30 tabs 09/08/23 09/24/24 02/05/24 04:00 release polyethylene glycol 3350 17 17 g PO DAILY PRN Constipation 30 09/08/23 09/24/24 Unknown gram/dose oral powder (Miralax) days #119 grams pregabalin 100 mg capsule 100 mg PO TID 30 days #90 caps 09/08/23 09/24/24 1 04:00 sertraline 150 mg capsule 150 mg PO QAM 30 days #30 caps 09/08/23 09/24/24 02/05/24 04:00 tamsulosin 0.4 mg capsule 0.8 mg (2 x 0.4 mg) PO QAM 30 days 09/08/23 09/24/24 02/05/24 04:00 #30 caps verapamil 120 mg tablet 120 mg PO Q2D 30 days #15 tabs 09/08/23 09/24/24 02/05/24 04:00 hydrocodone 10 mg-acetaminophen 1 tab PO Q6H PRN Pain 01/19/24 09/24/24 02/04/24 23:00 325 mg tablet semaglutide 2 mg/dose (8 mg/3 mL) 2 mg subcut WK 01/19/24 09/24/24 01/17/24 subcutaneous pen injector (Ozempic) torsemide 10 mg tablet 10 mg PO QAM 09/24/24 09/24/24 Unknown Past Medical History Medical History (Updated 09/26/24 @ 13:41 by Lynne Monsalve PA-C) Alcohol abuse quit in 2017 Aortic stenosis Echo 12/2023: Moderate aortic stenosis Arthritis Chronic anemia - Iron deficiency - Following closely with [facility] heme/onc, "Cause of anemia is likely multifactorial including ACD/AI, renal insufficiency, andiron deficiency" - required 2 units of PRBCs s/p right TKA August 2023 per records Chronic kidney disease, stage 3 Diabetes mellitus, type 2 Diabetic peripheral neuropathy Difficult intubation glidescope 3 used for 2023 left TKA Diverticular disease denies h/o diverticulitis Hearing deficit hearing aids b/l Heart failure EF 65-69% on 01/2024 ECHO History of anesthesia reaction - during left DANY 2016 @ [facility] > Per [facility] discharge summary (03/08/17): Intraoperative bradycardia/unresponsive/hypotensive > CPR begun/epi > wide complex tachycardia s/p synchronized cardioversion shocks- transferred to ICU intubated. Stabilized next day and went back to OR to complete DANY. Tolerated procedure okay and sent back to ICU (extubated next day). Hx heavy ETOH use noted. - Pt has had anesthesia since (colonoscopy 2018, B/L cataracts 06/2022, L TKA 05/2023, R TKA 08/2023) without issue - Follows with Dr. Remy History of blood transfusion Hx of cardiac arrest (2016) during left DANY 2016 @ [facility] > Per [facility] discharge summary (03/08/17): Intraoperative bradycardia/unresponsive/hypotensive > CPR begun/epi > wide complex tachycardia s/p synchronized cardioversion shocks- transferred to ICU intubated. Stabilized next day and went back to OR to complete DANY. Tolerated procedure okay and sent back to ICU (extubated next day). Hx heavy ETOH use noted. Hx of ventricular fibrillation (2016) during left DANY 2016 @ [facility] > Per [facility] discharge summary (03/08/17): Intraoperative bradycardia/unresponsive/hypotensive > CPR begun/epi > wide complex tachycardia s/p synchronized cardioversion shocks- transferred to ICU intubated. Stabilized next day and went back to OR to complete DANY. Tolerated procedure okay and sent back to ICU (extubated next day). Hx heavy ETOH use noted. Hyperlipidemia Hypertension controlled, stable per pt Mass of right axilla hx--removed 01/2024-denies limb restriction PMR (polymyalgia rheumatica) Pseudogout hx Pulmonary hypertension No evidence of pulm HTN per 01/2024 ECHO Rotator cuff arthropathy of right shoulder Sleep apnea unable to tolerate cpap. Spinal stenosis Patient denies h/o stroke, seizures, or blood clots/DVTs. Exercise / Class Metabolic Activity II 4-5 Yardwork/Stairs/Walk up hill (chronic shortness of breath with usual activities ongoing for several years without change or worsening per pt; denies chest discomfort) Past Family History Family History Mother Family history of diabetes mellitus Brother Family history of diabetes mellitus Sister Family history of diabetes mellitus Other No family history of adverse response to anesthesia Past Surgical History Surgical History (Updated 09/26/24 @ 13:40 by Lynne Monsalve PA-C) History of arthroscopy of left knee History of carpal tunnel surgery of right wrist History of colonoscopy History of esophagogastroduodenoscopy (EGD) History of hernia surgery (02/05/24) Laparoscopic Right Inguinal Hernia Repair with Mesh(Right) - Fausto Phillips MD s Excision of a Right Axillary Mass(Right) History of incision and drainage To right knee 08/28/23 History of left knee replacement 06/09/23 [facility] History of lumbar spinal fusion History of right cataract surgery History of right knee joint replacement Right TKA 09/04/23= Done under [place] with Grade 1 view with Glidescope #4. ETT #7.5. Atraumatic DL x 1 History of tooth extraction partial upper and lower denture History of total left hip replacement Left DANY anterior (03/01/17): SAB at L3-4 at [facility] > Per [facility] discharge summary (03/08/17): Intraoperative bradycardia/unresponsive/hypotensive > CPR begun/epi > wide complex tachycardia s/p synchronized cardioversion shocks- transferred to ICU intubated. Stabilized next day and went back to OR to complete DANY. Tolerated procedure okay and sent back to ICU (extubated next day). Hx heavy ETOH use noted. History of wisdom tooth extraction Hx of left cataract extraction Past Anesthesia History No Family Hx of Anesthesia Complications History of PONV No Hx of PONV and No Hx of Motion Sickness Social History Smoking Status: Former smoker tobacco type: cigarettes Smoking cigarettes per day: Quit 2017 Do You Dip or Chew Tobacco: No Hx Alcohol Use: No (quit 2017) Hx Substance Use: No substance use type: does not use Review of Systems Patient denies chest pain, reflux, fever, chills, cough, wheezing, or palpitations. Physical Exam Vital Signs Vitals BP 112/69 P 74 TEMP 98.4 SP02 95% on RA RESP 18 Physical Patient resting comfortably in chair in no acute distress, alert and oriented, responding appropriately throughout visit Full cervical extension range of motion without pain TMD 3.5 finger breadths Mallampati Score 3 Dentition: two partials, several caps/crowns, denies chipped or loose teeth, implants or bridges Lungs: normal respiratory effort. Good air movement, clear throughout to auscultation, no adventitious breath sounds Cardiac: regular rate and rhythm, 3/6 systolic murmur, no gallops or rubs Carotid arteries: negative bruit bilat Lab Results Anesthesia Preop Results Results Anesthesia Widget: WBC 5.97 K/ul (4.8-10.8) 09/26/24 Hgb 9.2 g/dl (14.0-18.0) L 09/26/24 Hct 29.1 % (42.0-52.0) L 09/26/24 Plt 222 K/uL (130-400) 09/26/24 Na 135 mmol/L (136-145) L 09/26/24 K 4.9 mmol/L (3.5-5.1) 09/26/24 Cl 101 mmol/L (98-107) 09/26/24 CO2 26 mmol/L (21-32) 09/26/24 BUN 29 mg/dl (6-23) H 09/26/24 Creat 1.54 mg/dl (0.6-1.4) H 09/26/24 Glucose Level 189 mg/dl (70-99(Fasting)) H 09/26/24 PT 11.6 Seconds (9.0-12.0) 09/26/24 PTT 40 Seconds (21-31) H 09/26/24 INR 1.1 (0.9-1.1) 09/26/24 HA1c 6.8 % (4.5-5.6) H 09/26/24 Blood Type A Positive 09/26/24 Antibody Screen NEGATIVE 09/26/24 Testing Electrocardiogram Date: 01/10/24 Sinus rhythm with 1st degree AV block, rate 60 bpm Left anterior fascicular block Chest X-Ray Date: 09/26/24 No acute findings. Echocardiogram Date: 02/01/24 LVEF 65-69% Sinus bradycardia Moderate cLVH Normal LV wall motion Grade II diastolic dysfunction Moderately enlarged LA Moderately calcified aortic valve, moderate aortic valve stenosis (SCARLET 1.2 cm2, mean PG 19 mmHg, max PG 35 mmHg) Mildly enlarged aortic root and proximal ascending aorta (4.1 cm/4.2 cm) No evidence of pulmonary hypertension Stress Test Date: 01/10/23 Pharmacologic MPHR 62% Negative for ischemia EF 67% Normal LV wall motion
--- NOTE | 2024-10-31 14:34 | History & Physical Report ---
Date of Service October 31, 2024 Assessment & Plan (1) Rotator cuff arthropathy of right shoulder: We will proceed with a right reverse shoulder arthroplasty. Postoperatively, he will be placed in a sling and will be kept overnight in the hospital for postop medical management. He plans to use [facility] after discharge. History of Present Illness Chief Complaint: Cuff tear arthropathy right shoulder. Primary Care Provider: Matilde Mauricio DO Dennis is a pleasant 73-year-old male who is well known to me. He has been dealing with chronic worsening bilateral shoulder pain. He has poor motion of his shoulders. It is hurting more and more. He has trouble doing anything away from his body or up over head. 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 After failed conservative treatment, he has elected to proceed with a right reverse shoulder arthroplasty. Allergies Allergy/AdvReac Type Severity Reaction Status Date / Time No Known Allergies Allergy Verified 09/24/24 14:20 Home Medications Medication Instructions Recorded Confirmed Type fluocinonide 0.05 % topical 1 applic topical BID PRN Rash 01/30/19 09/24/24 History ointment lorazepam 0.5 mg tablet 0.5 mg PO DAILY PRN Anxiety 01/30/19 09/24/24 History spironolactone 25 mg tablet 12.5 mg PO QAM 01/30/19 09/24/24 History CPAP Machine #1 ea 09/21/22 08/28/23 Rx acetaminophen 500 mg tablet 1,000 mg (2 x 500 mg) PO Q8H PRN 09/08/23 09/24/24 Rx Pain #20 tabs atorvastatin 40 mg tablet 40 mg PO QAM 30 days #30 tabs 09/08/23 09/24/24 Rx cholecalciferol (vitamin D3) 50 2,000 unit PO QAM 30 days #30 tabs 09/08/23 09/24/24 Rx mcg (2,000 unit) tablet cyanocobalamin (vitamin B-12) 5,000 mcg sublingual QAM 30 days 09/08/23 09/24/24 Rx 5,000 mcg sublingual tablet #30 tabs (Vitamin B-12) folic acid 1 mg tablet 1 mg PO QAM 30 days #30 tabs 09/08/23 09/24/24 Rx insulin glargine 100 unit/mL (3 30 unit (0.3 mL) subcut QAM 30 09/08/23 09/24/24 Rx mL) subcutaneous pen (Lantus days #9 mL Solostar U-100 Insulin) magnesium hydroxide 400 mg/5 mL 30 ml PO Q6H PRN constipation #355 09/08/23 09/24/24 Rx oral suspension (Milk of Magnesia) mL metoprolol succinate 25 mg 25 mg PO QAM 30 days #30 tabs 09/08/23 09/24/24 Rx tablet,extended release 24 hr (Toprol XL) pantoprazole 40 mg tablet,delayed 40 mg PO QAM 30 days #30 tabs 09/08/2307/16 Rx release polyethylene glycol 3350 17 17 g PO DAILY PRN Constipation 30 09/08/23 09/24/24 Rx gram/dose oral powder (Miralax) days #119 grams pregabalin 100 mg capsule 100 mg PO TID 30 days #90 caps 09/08/23 09/24/24 Rx sertraline 150 mg capsule 150 mg PO QAM 30 days #30 caps 09/08/23 09/24/24 Rx tamsulosin 0.4 mg capsule 0.8 mg (2 x 0.4 mg) PO QAM 30 days 09/08/23 09/24/24 Rx #30 caps verapamil 120 mg tablet 120 mg PO Q2D 30 days #15 tabs 09/08/23 09/24/24 Rx hydrocodone 10 mg-acetaminophen 1 tab PO Q6H PRN Pain 01/19/24 09/24/24 History 325 mg tablet semaglutide 2 mg/dose (8 mg/3 mL) 2 mg subcut WK 01/19/24 09/24/24 History subcutaneous pen injector (Ozempic) torsemide 10 mg tablet 10 mg PO QAM 09/24/24 09/24/24 History Past Med/Surg History Problem List Rotator cuff arthropathy of right shoulder Right inguinal hernia Osteoarthritis H/O cardiac arrest 2017 Chronic anemia Iron deficiency Following closely with [facility] heme/onc, "Cause of anemia is likely multifactorial including ACD/AI, renal insufficiency, andiron deficiency" PMR (polymyalgia rheumatica) Cardiac arrhythmia Per [facility] discharge summary (03/08/17): Intraoperative bradycardia/unresponsive/hypotensive during Left DANY > CPR begun/epi > wide complex tachycardia s/p synchronized cardioversion shocks- transferred to ICU intubated. Stabilized next day and went back to OR to complete DANY. Tolerated procedure okay and sent back to ICU (extubated next day). Hx heavy ETOH use noted. Pt has had anesthesia since (colonoscopy 2018, B/L cataracts 06/2022) without issue Follows with Dr. Remy Encounter for pre-operative examination Personal history of diabetic foot ulcer Diabetic peripheral neuropathy associated with type 2 diabetes mellitus feet Lower extremity edema (Chronic) HENRIK (obstructive sleep apnea) CPAP (current occasional use, spoke with patient at PAT visit 05/26/23- patient voiced that he will plan to be compliant prior to DOS) Chronic kidney disease (CKD), stage III (moderate) Anxiety Dyslipidemia (Chronic) HTN (hypertension) (Chronic) DM type 2 (diabetes mellitus, type 2) (Chronic) Lumbar degenerative disc disease (Chronic) Medical History Difficult intubation glidescope 3 used for 2023 left TKA Rotator cuff arthropathy of right shoulder Mass of right axilla hx--removed 01/2024-denies limb restriction Chronic kidney disease, stage 3 Chronic anemia - Iron deficiency - Following closely with [facility] heme/onc, "Cause of anemia is likely multifactorial including ACD/AI, renal insufficiency, andiron deficiency" - required 2 units of PRBCs s/p right TKA August 2023 per records Hx of ventricular fibrillation (2016) during left DANY 2016 @ [facility] > Per [facility] discharge summary (03/08/17): Intraoperative bradycardia/unresponsive/hypotensive > CPR begun/epi > wide complex tachycardia s/p synchronized cardioversion shocks- transferred to ICU intubated. Stabilized next day and went back to OR to complete DANY. Tolerated procedure okay and sent back to ICU (extubated next day). Hx heavy ETOH use noted. PMR (polymyalgia rheumatica) Sleep apnea unable to tolerate cpap. Hx of cardiac arrest (2016) during left DANY 2016 @ [facility] > Per [facility] discharge summary (03/08/17): Intraoperative bradycardia/unresponsive/hypotensive > CPR begun/epi > wide complex tachycardia s/p synchronized cardioversion shocks- transferred to ICU intubated. Stabilized next day and went back to OR to complete DANY. Tolerated procedure okay and sent back to ICU (extubated next day). Hx heavy ETOH use noted. Diabetic peripheral neuropathy Alcohol abuse quit in 2016 Pulmonary hypertension No evidence of pulm HTN per 01/2024 ECHO Heart failure EF 65-69% on 01/2024 ECHO History of blood transfusion History of anesthesia reaction - during left DANY 2017 @ [facility] > Per [facility] discharge summary (03/08/17): Intraoperative bradycardia/unresponsive/hypotensive > CPR begun/epi > wide complex tachycardia s/p synchronized cardioversion shocks- transferred to ICU intubated. Stabilized next day and went back to OR to complete DANY. Tolerated procedure okay and sent back to ICU (extubated next day). Hx heavy ETOH use noted. - Pt has had anesthesia since (colonoscopy 2018, B/L cataracts 06/2022, L TKA 05/2023, R TKA 08/2023) without issue - Follows with Dr. Remy Aortic stenosis Echo 12/2023: Moderate aortic stenosis Arthritis Pseudogout hx Spinal stenosis Diverticular disease denies h/o diverticulitis Diabetes mellitus, type 2 Hearing deficit hearing aids b/l Hypertension controlled, stable per pt Hyperlipidemia Surgical History History of hernia surgery (02/05/24) Laparoscopic Right Inguinal Hernia Repair with Mesh(Right) - Fausto Phillips MD s Excision of a Right Axillary Mass(Right) History of incision and drainage To right knee 08/28/23 History of right knee joint replacement Right TKA 09/04/23= Done under [place] with Grade 1 view with Glidescope #4. ETT #7.5. Atraumatic DL x 1 History of left knee replacement 06/09/23 [facility] Hx of left cataract extraction History of right cataract surgery History of carpal tunnel surgery of right wrist History of lumbar spinal fusion History of total left hip replacement Left DANY anterior (03/01/17): SAB at L3-4 at [facility] > Per [facility] discharge summary (03/08/17): Intraoperative bradycardia/unresponsive/hypotensive > CPR begun/epi > wide complex tachycardia s/p synchronized cardioversion shocks- transferred to ICU intubated. Stabilized next day and went back to OR to complete DANY. Tolerated procedure okay and sent back to ICU (extubated next day). Hx heavy ETOH use noted. History of arthroscopy of left knee History of colonoscopy History of esophagogastroduodenoscopy (EGD) History of tooth extraction partial upper and lower denture History of wisdom tooth extraction Family History Mother Family history of diabetes mellitus Brother Family history of diabetes mellitus Sister Family history of diabetes mellitus Other No family history of adverse response to anesthesia Social History Smoking Status: Former smoker Tobacco Type: Cigarettes Cigarettes Per Day: Quit 2017; Second Hand Exposure: No; Do You Dip or Chew Tobacco: No; Hx Alcohol Use: No (quit 2017) Hx Substance Use: No Preferred Language: Liberian Communication Ability: Effective Visual Impairment: Blindness Sas Architect Required: No Beliefs That Will Affect Care: None Current Living Situation: Other Current Living Situation Comment: Lives with 2 roommates Feels Safe at Home: Yes Assistive Devices: Denture - Upper, Denture - Lower, Glasses and Hearing Aid - Bilateral Review of Systems All systems reviewed & are unremarkable except as noted in HPI & below. Physical Exam On physical exam of the right shoulder, he has decreased range of motion with only about 60 degrees of forward elevation and 60 degrees of abduction. He is crepitus throughout.. Constitutional WD/WN, vitals as above Eyes PERRL, conjunctivae normal, anicteric sclerae ENMT external ear and nose normal, oropharynx normal Neck trachea midline, no thyromegaly Respiratory normal respiratory effort Cardiovascular RRR, no murmur, no edema Gastrointestinal (Abdomen) normal bowel sounds, soft, nontender, no hepatosplenomegaly Psychiatric A+Ox3, euthymic affect Results & Data Results & Data Laboratory Results . Diagnostic Findings X-rays of the right shoulder show signs of advanced osteoarthritis with joint space narrowing, osteophyte formation, and [id number] articulation.. PG Care Time/CCT Total # of Minutes Spent Total Time Spent with Patient: Total time spent is greater than 50% in coordination of care (as documented) at patient's floor/unit and/or counseling patient: Coding Level of Care Code None Diagnoses Rotator cuff arthropathy of right shoulder M12.811
[~2024-11-04 10:04] MED LIST changes: +BUPIVACAINE 0.5 % 5 MG/1 ML PF 10ML VIAL ONE; -ROPIVACAINE 0.5% 5 MG/ML 30 ML VIAL ONE
[2024-11-04] MEDS: LR 15ML/HR IV SCH (10:48)
[2024-11-04] MEDS: GABAPENTIN 300 MG CAP PO SCH (10:49)
[2024-11-04] MEDS: FAMOTIDINE 20 MG TAB PO SCH (10:49)
[2024-11-04] MEDS: ACETAMINOPHEN 500 MG TAB PO SCH ×2 (10:49→21:18)
[2024-11-04] MEDS: LR 60ML/HR IV SCH (10:49)
[2024-11-04] MEDS: dexAMETHasone**PF** 10 MG/ML VIAL IV SCH (10:49)
[2024-11-04] MEDS ORDERED: MIDAZOLAM HCL 1 MG/ML 2ML VIAL ONE (10:53)
[2024-11-04] MEDS ORDERED: PROPOFOL IV EMULSION 10 MG/ML 20 ML VIAL IV ONE (10:53)
[2024-11-04] MEDS ORDERED: LIDOCAINE 2% 2 ML VIAL/AMP(20MG/ML) INFIL ONE (10:53)
[2024-11-04] MEDS ORDERED: PHENYLEPHRINE HCL 10 MG/ML VIAL ONE (10:53)
[2024-11-04] MEDS ORDERED: ONDANSETRON INJ 2 MG/ML 2 ML VIAL ONE (10:53)
[2024-11-04] MEDS ORDERED: ROCURONIUM BROMIDE 10 MG/ML 5 ML VIAL IV ONE (10:53)
--- NOTE | 2024-11-04 11:31 | History & Physical Bridge Note ---
Date of Service November 04, 2024 History & Physical Bridge Note I have examined the patient, reviewed the History & Physical and in the interval since the performance of the History & Physical I have noted the following changes of clinical significance: no changes noted
[2024-11-04] MEDS ORDERED: ONDANSETRON INJ 2 MG/ML 2 ML VIAL IV PRN ×2 (12:08→16:28)
[2024-11-04] MEDS ORDERED: ATROPINE SULFATE 0.1 MG/ML 10ML SYR IV PRN (12:08)
[2024-11-04] MEDS: TRANEXAMIC ACID 1,000 MG **IV Pre-op IV SCH (12:34)
[2024-11-04] MEDS: ROPIV 0.5% 246mg, Ketorolac 30mg, EPINEPHrine 0.5mg in NSS INFIL SCH (13:42)
[2024-11-04] MEDS: ORTHO JOINT ANESTHETIC ONE (13:42)
--- NOTE | 2024-11-04 14:24 | Operative Report ---
PG Post Operative Report Pre & Post Diagnosis Operation Date: 11/04/24 12:00 Pre-Op Diagnosis: Severe osteoarthritis of the right shoulder with tendinopathy long head biceps tendon Post-Op Diagnosis: Severe osteoarthritis of the right shoulder with tendinopathy long head of the biceps tendon I identified the patient and participated in the time-out.: Yes Procedure Operation Date: 11/04/24 12:00 Actual Procedures p Right Reverse Total Shoulder Arthroplasty(Right) with open biceps tenodesis as a distinct and separate procedure (modifier 59)- Arian Dee DO Surgeon Arian Dee DO Turning Sander Tender Ray Gavin PA-C Estimated Blood Loss 300 Findings Consistent with Post-Op Diagnosis Specimens Right humeral head Description of Procedure A CPT code modifier 59: The long head of the biceps tendon was enlarged and inflamed consistent with tendinopathy. A tenodesis was opted. This was a separate and distinct portion of the procedure. For these reasons, a CPT code modifier 59 will be added to this case. Implants used: I used a [employer]omet Comprehensive reverse total shoulder arthroplasty system with a size 18 press fit micro humeral stem, a +10 thickness humeral tray and a +3 retentive humeral bearing, a 25 mm medium augment baseplate with a 6.5 mm central screw and superior and inferior locking screws, and a size 40 mm eccentric glenosphere. Martin arrived at [facility] for the above procedure. He was seen in the preoperative holding area and the operative extremity was identified and signed. He was given a preoperative antibiotic, TXA, and an interscalene nerve block. He was taken back to the operating room, laid on table in supine position, and put under general anesthesia. He was then put into the beachchair position. The shoulder was then prepped and draped in sterile fashion. A timeout was done and the patient and the operative extremity was properly identified. A deltopectoral approach was used. Dissection was taken down through the fascia and the deltoid was retracted laterally and the conjoined tendon was retracted medially. The anterior shoulder was exposed. The biceps groove was opened up and the biceps tendon was examined extensively. The biceps tendon demonstrated enlargement and inflammatory changes consistent with longstanding inflammation in the context of osteoarthritis and cuff arthropathy. The long head of the biceps tendon was then tenodesed to the upper border of the pectoralis major. This was a separate and distinct portion of the procedure. The subscapularis was then directly released off the lesser tuberosity with a peel technique. The inferior capsule was released and the humeral head was dislocated. A canal finding reamer was sent down the center of the humeral canal. Sequential reaming up to a size 18 reamer was done. Off that reamer, a proximal humeral resection guide was placed. The proximal humerus was resected at 135 of inclination and 25 of retroversion. Osteophytes were then removed and the glenoid was exposed. Time was spent doing a complete capsular and labral release. A Crackle signature guide was then placed. A 3.2 mm Steinmann pin was then placed into the glenoid vault at 10 of inclination. The glenoid baseplate was then reamed. The final size 25 mm medium augment baseplate was then impacted in the place. A 6.5 mm central screw was then placed followed by superior and inferior locking screws. A 40 mm eccentric glenosphere was then impacted into place. Surrounding soft tissues were then injected with 100 cc an orthopedic pain control cocktail. The proximal humerus was then exposed. Sequential broaching of the humerus up to a size 18 broach was done. Off that broach a +10 thickness and +3 retentive humeral tray was trialed. The shoulder was then reduced, brought through a full range of motion, and felt to be stable. The shoulder was then dislocated and the broach was removed. The final size 18 micro press-fit humeral stem was then impacted into place. A +3 retentive humeral bearing was then snapped onto a +10 thickness humeral tray. The humeral tray was then impacted onto the humeral stem. The shoulder was once again reduced, brought through a full range of motion, and felt to be stable. The subscapularis was then repaired back to the lesser tuberosity. I was able to spare the supraspinatus. This was a cuff sparing technique. A dilute betadyne lavage was then done for 3 minutes. The joint was then irrigated with normal saline solution. Hemostasis was obtained. The interval was closed with 2-0 Vicryl suture. The skin was then closed with 2-0 Vicryl and yannick. A Silverlon dressing was placed and the arm was rested in a regular arm sling. He was then extubated and transferred to a hospital bed. He taken to the postanesthesia care unit in stable condition. He tolerated the procedure well. Ray Gavin PA-C, was present for the entire procedure. He was critical for patient positioning, prepping, draping, retraction exposure, wound closure and application of sterile dressing. I attest to the content of the Intraoperative Record and any orders documented therein. Any exceptions are noted below.
[2024-11-04] MEDS ORDERED: NEOSTIGMINE METHYLSULFATE 1 MG/ML 10ML VIAL ONE (14:25)
[2024-11-04] MEDS ORDERED: GLYCOPYRROLATE 0.2 MG/ML VIAL ONE (14:25)
--- NOTE | 2024-11-04 15:52 | Anesthesiology Progress Note ---
Date of Service November 04, 2024 Anesthesia Post Procedure Vital Signs Vital Signs: Temp Pulse Resp BP Pulse Ox O2 Del Method O2 Flow Rate 11/04/24 15:50 94 H 11 L 120/64 94 Room Air 11/04/24 15:40 82 11 L 125/69 94 Room Air 11/04/24 15:30 98.1 F 87 14 128/69 95 Room Air 11/04/24 15:20 89 17 121/62 94 Room Air 11/04/24 15:10 89 17 129/69 92 Room Air 11/04/24 15:00 93 H 18 114/71 93 Room Air 11/04/24 14:50 97.2 F L 94 H 14 133/62 99 Oxymask 10 11/04/24 10:28 99.3 F 80 18 157/86 H 97 Room Air Pain Intensity Right Shoulder: Pain Intensity: 6 Left Shoulder: Pain Intensity: 8 Transfer of Care Handoff Completed per policy Notes Mental Status: alert / awake / arousable and participated in evaluation Patient Amnestic to Procedure: Yes Nausea / Vomiting: adequately controlled Pain: adequately controlled Airway Patency, RR, SpO2: stable & adequate BP & HR: stable & adequate Hydration State: stable & adequate Anesthetic Complications: no major complications apparent and Pt Satisfied with anesthetic care
[2024-11-04] MEDS ORDERED: METOCLOPRAMIDE HCL INJ 5 MG/ML 2 ML VIAL IV PRN (16:28)
[2024-11-04] MEDS ORDERED: NALOXONE HCL 0.4 MG/1 ML VIAL/CARP IV PRN (16:28)
[2024-11-04] MEDS ORDERED: diphenhydrAMINE Capsule 25 MG CAP PO PRN (16:28)
[2024-11-04] MEDS ORDERED: LORazepam 0.5 MG TAB PO PRN (16:28)
[2024-11-04] MEDS ORDERED: HYDROmorphone INJ 0.5 MG/0.5 ML SYR IV PRN (16:28)
[2024-11-04] MEDS ORDERED: ACETAMINOPHEN 500 MG TAB PO PRN (16:28)
[2024-11-04] MEDS: BUPIVACAINE LIPOSOME 1.3% 133 MG/10 ML VIAL ONE (16:40)
[2024-11-04] MEDS: SODIUM CHLORIDE 0.9% 1,000 ML IV SCH (16:42)
--- NOTE | 2024-11-04 16:48 | XRay Report ---
2 views of the right shoulder are submitted for review. Findings: No fracture is seen. There is a right shoulder arthroplasty in expected position. There is no definite sign of infection or loosening. No other osseous abnormality is identified. There are no radiopaque foreign bodies. Impression: Right shoulder replacement Electronically signed by Aman Wade 11-04-2024 4:48 PM
[2024-11-04] MEDS ORDERED: PHARMACY GLYCEMIC MGMT CONSULT PRN (17:03)
--- NOTE | 2024-11-04 17:11 | Pharmacy Report ---
Pharmacy Glycemic Short Note 2 - Date of Service November 04, 2024 - Glycemic Short BSG Results (Last 24 hours): 11/04/24 11/04/24 11/04/24 10:06 14:52 16:34 POC Glucose 78 161 H 195 H OUTPATIENT ANTIDIABETIC REGIMEN: * Lantus 30 units SC daily * Ozempic 2 mg SC weekly HbA1c: 6.8% (09/26/24) ASSESSMENT: * SD is a 73 year old male POD #0 s/p right reverse total shoulder * Received 10 mg IV dexamethasone in OR and is ordered dexamethasone 8 mg PO x 1 on POD #1 * Preop blood sugar of 78 mg/dL, postop blood sugars of 161 and 195 mg/dL * Blood sugar elevation likely due to IV steroids and surgical stress * Will be aggressive w/ Novolog, but slightly conservative with basal given fasting blood sugar of 78 mg/dL PLAN FOR INPATIENT GLYCEMIC CONTROL: * Basal insulin * Lantus 25 units SC x 1 (~0.25 unit/kg) * Bolus insulin * NovoLog per scale ACHS or Q6hrs while NPO * Goal Range: Low 110 mg/dL - High 140 mg/dL * Correction Factor: 20 mg/dL/unit * Nutritional / Prandial insulin per carb ratio of 1 unit per 6 grams CHO consumed
[2024-11-04] MEDS ORDERED: GLUCAGON FOR INJ 1 MG VIAL SQ PRN (17:15)
[2024-11-04] MEDS ORDERED: CARBOHYDRATES FOR HYPOGLYCEMIA PO PRN (17:15)
[2024-11-04] MEDS ORDERED: GLUCOSE 10 TAB/TUBE PO PRN (17:15)
[2024-11-04] MEDS ORDERED: GLUCOSE 40% GEL 15 GM TUBE PO PRN (17:15)
[2024-11-04] MEDS ORDERED: DEXTROSE 50% 50 ML SYRINGE IV PRN (17:15)
[2024-11-04] MEDS: KETOROLAC TROMETHAMINE 15 MG/ML VIAL IV SCH (17:24)
[2024-11-04] MEDS: INSULIN ASPART PER UNIT CHARGE SC SCH (17:32)
[2024-11-04] MEDS: LANTUS PER UNIT CHARGE SC ONE (17:32)
--- NOTE | 2024-11-04 17:49 | Hospitalist Consultation ---
Date of Consultation November 04, 2024 Assessment & Plan (1) HTN (hypertension): (2) DM type 2 (diabetes mellitus, type 2): (3) Chronic kidney disease (CKD), stage III (moderate): (4) Chronic anemia: (5) Anxiety: (6) Diabetic peripheral neuropathy associated with type 2 diabetes mellitus: (7) Rotator cuff arthropathy of right shoulder: Plan Pt is a 73 yo male with PMH of DMT2 with basal insulin and GLP-1 control, HTN, CKD stage 3, pulmonary HTN, aortic stenosis, chronic anemia, PMR, diabetic neuropathy, and HENRIK who underwent Right reverse TSA this afternoon with Dr. Dee. Pt has complex medical history as well as history of complications after previous orthopedic surgeries including V-fib with cardiac arrest and significant blood loss anemia. # Right reverse TSA - Pain management per Dr. Dee - PT/OT ordered # DMT2 Controlled at home with basal insulin and GLP-1. Last A1c 6.8% on 09/26/24 - BSG ACHS - Continue Glargine 30u qd - Continue Aspart per sliding scale # Pulmonary HTN/HFpEF/Hx of post surgical arrhythmia and arrest - Continue with home meds of metoprolol 25mg qd, spironolactone 12.5 mg qd, torsemide 10mg qd, and verapamil 120 mg q2d #Chronic anemia History of post surgical blood loss anemia after TKA in 2023. Pt required 2 units pRBCs. With HFpEF, transfusion threshold is 8.0. Last CBC in 09/26/24 shows Hbg at 9.2. Pt currently reports no symptoms of anemia - Check H&H - Monitor with AM labs # CKD stage 3 Last BMP from 09/26/24 shows Cr of 1.5, BUN 29, eGFR 47.93 - Ordered BMP - Renal dosing of meds and avoiding nephrotoxic meds Chronic conditions: Urinary retention- continue tamsulosin 0.8mg Anxiety- continue sertraline 150mg GERD- Continue protonix 40mg Neuropathy- continue pregabalin 100 mg TID Dispo: surg Diet: Low carb DM2 Code: Full Code DVT prophylaxis: SCDs Supervising Physician Co-Signing Physician Notes I personally examined the patient and verified all carrasquillo points of history and exam, discussed case, and agree with decision making with Dr Lombardo feeling ok no significant pain vitals noted nad heent nc at mmm breathing unlabored no accessory muscles good effort skin no rashes no pallor or icterus s/p shoulder replacement, DM2, prior arrythmias - overall appearing stable. as above. DVT proph - per ortho (asa bid, SCDs) History of Present Illness Reason for Consultation: Assistance medical management S/p R reverse TSA Requesting Physician: Ray Gavin PA-C Attending Physician: Arian Dee, History of Present Illness Pt is a 73 yo male with PMH of DMT2 with basal insulin and GLP-1 control, HTN, CKD stage 3, pulmonary HTN, aortic stenosis, chronic anemia, PMR, diabetic neuropathy, and HENRIK who presents follow right reverse TSA this afternoon. Pt reports current right shoulder pain is under control. Pt states his last dose of Ozempic was on 10/21/24 per recommendation prior to surgery. His average fasting BSG is 110. Pt currently denies CP, palpitations, SOB, dizziness/lightheadedness, fever/chills, abdominal pain, N/V/D. Pt endorses long standing numbness at bilateral feet with decreased sensation to touch. Allergies Allergy/AdvReac Type Severity Reaction Status Date / Time No Known Allergies Allergy Verified 11/04/24 10:15 Home Medications Medication Instructions Recorded Confirmed Type fluocinonide 0.05 % topical 1 applic topical BID PRN Rash 01/30/19 11/04/24 History ointment lorazepam 0.5 mg tablet 0.5 mg PO DAILY PRN Anxiety 01/30/19 11/04/24 History spironolactone 25 mg tablet 12.5 mg PO QAM 01/30/19 11/04/24 History CPAP Machine #1 ea 09/21/22 08/28/23 Rx acetaminophen 500 mg tablet 1,000 mg (2 x 500 mg) PO Q8H PRN 09/08/23 11/04/24 Rx Pain #20 tabs atorvastatin 40 mg tablet 40 mg PO QAM 30 days #30 tabs 09/08/23 11/04/24 Rx cholecalciferol (vitamin D3) 50 2,000 unit PO QAM 30 days #30 tabs 09/08/23 11/04/24 Rx mcg (2,000 unit) tablet cyanocobalamin (vitamin B-12) 5,000 mcg sublingual QAM 30 days 09/08/23 11/04/24 Rx 5,000 mcg sublingual tablet #30 tabs (Vitamin B-12) folic acid 1 mg tablet 1 mg PO QAM 30 days #30 tabs 09/08/23 11/04/24 Rx insulin glargine 100 unit/mL (3 30 unit (0.3 mL) subcut QAM 30 09/08/23 11/04/24 Rx mL) subcutaneous pen (Lantus days #9 mL Solostar U-100 Insulin) magnesium hydroxide 400 mg/5 mL 30 ml PO Q6H PRN constipation #355 09/08/23 11/04/24 Rx oral suspension (Milk of Magnesia) mL metoprolol succinate 25 mg 25 mg PO QAM 30 days #30 tabs 09/08/23 11/04/24 Rx tablet,extended release 24 hr (Toprol XL) polyethylene glycol 3350 17 17 g PO DAILY PRN Constipation 30 09/08/23 11/04/24 Rx gram/dose oral powder (Miralax) days #119 grams sertraline 150 mg capsule 150 mg PO QAM 30 days #30 caps 09/08/23 11/04/24 Rx tamsulosin 0.4 mg capsule 0.8 mg (2 x 0.4 mg) PO QAM 30 days 09/08/23 11/04/24 Rx #30 caps verapamil 120 mg tablet 120 mg PO Q2D 30 days #15 tabs 09/08/23 11/04/24 Rx hydrocodone 10 mg-acetaminophen 1 tab PO Q6H PRN Pain 01/19/24 11/04/24 History 325 mg tablet semaglutide 2 mg/dose (8 mg/3 mL) 2 mg subcut WK 01/19/24 11/04/24 History subcutaneous pen injector (Ozempic) torsemide 10 mg tablet 10 mg PO QAM 09/24/24 11/04/24 History pantoprazole 40 mg tablet,delayed 40 mg PO QAM 11/04/24 11/04/24 History release (Protonix) pregabalin 100 mg capsule (Lyrica) 100 mg PO TID 11/04/24 11/04/24 History Patient History Medical History Difficult intubation glidescope 3 used for 2023 left TKA Rotator cuff arthropathy of right shoulder Mass of right axilla hx--removed 01/2024-denies limb restriction Chronic kidney disease, stage 3 Chronic anemia - Iron deficiency - Following closely with [facility] heme/onc, "Cause of anemia is likely mult ifactorial including ACD/AI, renal insufficiency, andiron deficiency" - required 2 units of PRBCs s/p right TKA August 2023 per records Hx of ventricular fibrillation (2016) during left DANY 2017 @ [facility] > Per [facility] discharge summary (03/08/17): Intraoperative bradycardia/unresponsive/hypotensive > CPR begun/epi > wide complex tachycardia s/p synchronized cardioversion shocks- transferred to ICU intubated. Stabilized next day and went back to OR to complete DANY. Tolerated procedure okay and sent back to ICU (extubated next day). Hx heavy ETOH use noted. PMR (polymyalgia rheumatica) Sleep apnea unable to tolerate cpap. Hx of cardiac arrest (2016) during left DANY 2017 @ [facility] > Per [facility] discharge summary (03/08/17): Intraoperative bradycardia/unresponsive/hypotensive > CPR begun/epi > wide complex tachycardia s/p synchronized cardioversion shocks- transferred to ICU intubated. Stabilized next day and went back to OR to complete DANY. Tolerated procedure okay and sent back to ICU (extubated next day). Hx heavy ETOH use noted. Diabetic peripheral neuropathy Alcohol abuse quit in 2016 Pulmonary hypertension No evidence of pulm HTN per 01/2024 ECHO Heart failure EF 65-69% on 01/2024 ECHO History of blood transfusion History of anesthesia reaction - during left DANY 2016 @ [facility] > Per [facility] discharge summary (03/08/17): Intraoperative bradycardia/unresponsive/hypotensive > CPR begun/epi > wide complex tachycardia s/p synchronized cardioversion shocks- transferred to ICU intubated. Stabilized next day and went back to OR to complete DANY. Tolerated procedure okay and sent back to ICU (extubated next day). Hx heavy ETOH use noted. - Pt has had anesthesia since (colonoscopy 2018, B/L cataracts 06/2022, L TKA 05/2023, R TKA 08/2023) without issue - Follows with Dr. Remy Aortic stenosis Echo 12/2023: Moderate aortic stenosis Arthritis Pseudogout hx Spinal stenosis Diverticular disease denies h/o diverticulitis Diabetes mellitus, type 2 Hearing deficit hearing aids b/l Hypertension controlled, stable per pt Hyperlipidemia Surgical History History of hernia surgery (02/05/24) Laparoscopic Right Inguinal Hernia Repair with Mesh(Right) - Fausto Phillips MD s Excision of a Right Axillary Mass(Right) History of incision and drainage To right knee 08/28/23 History of right knee joint replacement Right TKA 09/04/23= Done under [place] with Grade 1 view with Glidescope #4. ETT #7.5. Atraumatic DL x 1 History of left knee replacement 06/09/23 [facility] Hx of left cataract extraction History of right cataract surgery History of carpal tunnel surgery of right wrist History of lumbar spinal fusion History of total left hip replacement Left DANY anterior (03/01/17): SAB at L3-4 at [facility] > Per [facility] discharge summary (03/08/17): Intraoperative bradycardia/unresponsive/hypotensive > CPR begun/epi > wide complex tachycardia s/p synchronized cardioversion shocks- transferred to ICU intubated. Stabilized next day and went back to OR to complete DANY. Tolerated procedure okay and sent back to ICU (extubated next day). Hx heavy ETOH use noted. History of arthroscopy of left knee History of colonoscopy History of esophagogastroduodenoscopy (EGD) History of tooth extraction partial upper and lower denture History of wisdom tooth extraction Family History Mother Family history of diabetes mellitus Brother Family history of diabetes mellitus Sister Family history of diabetes mellitus Other No family history of adverse response to anesthesia Social History Smoking Status: Former smoker Tobacco Type: Cigarettes Cigarettes Per Day: Quit 2017; Second Hand Exposure: No; Do You Dip or Chew Tobacco: No; Tobacco Cessation Education Requested by Patient: No Hx Alcohol Use: No (quit 2016) Hx Substance Use: No Preferred Language: Azeri Communication Ability: Effective Visual Impairment: Blindness Machine Candle Molder Required: No Beliefs That Will Affect Care: None Current Living Situation: Other Current Living Situation Comment: Lives with 2 roommates Other Information That Helps Us Care for You: No Feels Safe at Home: Yes Safety Concerns: Feels Safe At This Time Assistive Devices: Denture - Upper, Denture - Lower, Glasses and Hearing Aid - Bilateral Assistive Devices Comment: partial upper and lower Review of Systems Review of Systems: As per HPI Physical Exam Physical Exam: Gen: NAD, awake, laying in bed HENT: Normocephalic, atraumatic. External ear without deformities. Trachea midline, no thyromegaly Cardio: RRR, systolic murmur heard best right sternal boarder. Resp: CTAB, Equal bilateral chest rise, no increased work of breathing, Wearing NC with O2 at 2L GI: Mildly distended, soft, non tender, normoactive bowel sounds MSK: Moving all 3/4 extremities independently, Right shoulder in sling Skin: Dry, normal skin tone, Neuro: A & O x 3, normal affect. Limited sensation at bilateral feet. Results & Data Results & Data Vital Signs (Past 12 Hours) Vital Signs Temp Pulse Pulse Resp BP Pulse Ox O2 Del Method 11/04/24 17:15 36.6 C 83 18 127/76 96 Nasal Cannula 11/04/24 16:44 Nasal Cannula 11/04/24 16:44 36.6 C 83 18 114/69 96 Nasal Cannula 11/04/24 16:15 80 12 126/70 95 Room Air 11/04/24 16:00 86 20 115/59 L 92 Room Air 11/04/24 15:50 94 H 11 L 120/64 94 Room Air 11/04/24 15:40 82 11 L 125/69 94 Room Air 11/04/24 15:30 36.7 C 87 14 128/69 95 Room Air 11/04/24 15:20 89 17 121/62 94 Room Air 11/04/24 15:10 89 17 129/69 92 Room Air 11/04/24 15:00 93 H 18 114/71 93 Room Air 11/04/24 14:50 36.2 C L 94 H 14 133/62 99 Oxymask 11/04/24 10:28 37.4 C 80 18 157/86 H 97 Room Air O2 Flow Rate 11/04/24 17:15 2 11/04/24 16:44 2 11/04/24 16:44 2 11/04/24 16:15 11/04/24 16:00 11/04/24 15:50 11/04/24 15:40 11/04/24 15:30 11/04/24 15:20 11/04/24 15:10 11/04/24 15:00 11/04/24 14:50 10 11/04/24 10:28 Resident Activity Tracking Resident Involvement: Resident Care Provided Care Provided: Adult Hospital Medicine (1) HTN (hypertension) Hypertension type: primary hypertension Qualified Code(s): I10 - Essential (primary) hypertension (2) DM type 2 (diabetes mellitus, type 2) Diabetes mellitus complication detail: with polyneuropathy Diabetes mellitus complication status: with neurologic complications Diabetes mellitus terminal carman insulin use: with jail use Qualified Code(s): E11.42 - Type 2 diabetes mellitus with diabetic polyneuropathy; Z79.4 - senior living (current) use of insulin
[2024-11-04] MEDS ORDERED: SODIUM CHLORIDE 0.9% 100 ML IV PRN (18:49)
[2024-11-04 19:04] LABS: Hematocrit (blood only) 24.3 % (42.0-52.0); Hemoglobin 7.4 g/dl (14.0-18.0)
[2024-11-04 19:31] LABS: Anion Gap 7.0 (3-11); Blood Urea Nitrogen 36.0 mg/dl (6-23); Calcium 8.1 mg/dl (8.6-10.3); Carbon Dioxide 23.0 mmol/L (21-32); Chloride 105.0 mmol/L (98-107); Creatinine Clr Calc Pharmacy 54.0 ml/min; Glucose 177.0 mg/dl (70-99(Fasting)); Potassium 4.6 mmol/L (3.5-5.1); Sodium 135.0 mmol/L (136-145)
[2024-11-04] MEDS: ASPIRIN 81 MG ECTAB PO SCH (19:31)
--- NOTE | 2024-11-04 19:35 | Billing Data ---
Date of Service November 04, 2024 Coding Level of Care Code 61272 SUB INP/OBS CARE
[2024-11-04] MEDS: SENNA 8.6 MG TAB PO SCH (20:01)
[2024-11-04] MEDS: DOCUSATE SODIUM 100 MG CAP PO SCH (20:01)
[2024-11-04] MEDS: PREGABALIN 100 MG CAP PO SCH (20:02)
[2024-11-05 06:05] LABS: Hematocrit (blood only) 24.2 % (42.0-52.0); Hemoglobin 7.4 g/dl (14.0-18.0); Immature Granulocytes # (auto) 0.08 K/uL (0.01-0.20); Immature Granulocytes % (auto) 0.9 %; Mean Corpuscular Hemoglobin 24.9 pg (25.0-34.0); Mean Corpuscular Volume 81.5 fL (80.0-100.0); Platelet Count 260 K/uL (130-400); RDW Standard Deviation 45.5 fL (36.4-46.3); Red Blood Count 2.97 M/uL (4.70-6.10); White Blood Count 9.32 K/ul (4.8-10.8)
[2024-11-05 06:18] LABS: Anion Gap 9.0 (3-11); Blood Urea Nitrogen 37.0 mg/dl (6-23); Calcium 8.1 mg/dl (8.6-10.3); Carbon Dioxide 24.0 mmol/L (21-32); Chloride 104.0 mmol/L (98-107); Creatinine Clr Calc Pharmacy 47.5 ml/min; Glucose 155.0 mg/dl (70-99(Fasting)); Potassium 4.3 mmol/L (3.5-5.1); Sodium 137.0 mmol/L (136-145)
[2024-11-05 06:32] LABS: Ovalocytes 1+; Polychromasia 1+; Tear Drop Cells 1+
--- NOTE | 2024-11-05 07:08 | Hospitalist Progress Note ---
Date of Service November 05, 2024 Assessment & Plan (1) HTN (hypertension): (2) DM type 2 (diabetes mellitus, type 2): (3) Chronic kidney disease (CKD), stage III (moderate): (4) Chronic anemia: (5) Anxiety: (6) Diabetic peripheral neuropathy associated with type 2 diabetes mellitus: (7) Rotator cuff arthropathy of right shoulder: Plan Pt is a 73 yo male with PMH of DMT2 with basal insulin and GLP-1 control, HTN, CKD stage 3, pulmonary HTN, aortic stenosis, chronic anemia, PMR, diabetic neuropathy, and HENRIK who underwent Right reverse TSA this afternoon with Dr. Dee. Pt has complex medical history as well as history of complications after previous orthopedic surgeries including V-fib with cardiac arrest and significant blood loss anemia. # Right reverse TSA - Pain management per Dr. Dee - PT/OT ordered # DMT2 Controlled at home with basal insulin and GLP-1. Last A1c 6.8% on 09/26/24 - BSG ACHS - Continue Glargine 30u qd - Continue Aspart per sliding scale # Pulmonary HTN/HFpEF/Hx of post surgical arrhythmia and arrest - Continue with home meds of metoprolol 25mg qd, spironolactone 12.5 mg qd,and verapamil 120 mg q2d - Consider holding home torsemide due to increase in Creatine today #Chronic anemia History of post surgical blood loss anemia after TKA in 2023. Pt required 2 units pRBCs. With HFpEF, transfusion threshold is 8.0. Last CBC in 09/26/24 shows Hbg at 9.2. Pt currently reports no symptoms of anemia - Check H&H - Monitor with AM labs # CKD stage 3 Last BMP from 09/26/24 shows Cr of 1.5, BUN 29, eGFR 47.93 - Cr was 1.67 today - Holding torsemide - Renal dosing of meds and avoiding nephrotoxic meds - Repeat BMP in AM labs Chronic conditions: Urinary retention- continue tamsulosin 0.8mg Anxiety- continue sertraline 150mg GERD- Continue protonix 40mg Neuropathy- continue pregabalin 100 mg TID Dispo: surg Diet: Low carb DM2 Code: Full Code DVT prophylaxis: SCDs Admission and Anticipated Discharge Date Admission Date: November 04, 2024 Supervising Physician Co-Signing Physician Notes I personally examined the patient and verified all carrasquillo points of history and exam, discussed case, and agree with decision making with Dr Lombardo feels ok overall - does mention feeling weak and shaky when he stands - but this has been going on for about the last 2wks. also notes that in preop visits over last week, while different scales, his weight went from 206 monday to 201 monday. vitals noted nad heent nc at mmm breathing unlabored no accessory muscles good effort skin no rashes no pallor or icterus s/p shoulder replacement, DM2, prior arrythmias - overall appearing stable. as above. MICHELLE/dehydration - likely acute from blood loss resulting in acute blood loss anemia not unexpected given the procedure, but this sounds to be superimposed on chronic / subacute hypovolemia likely from baseline diuretic use and recent hot weather - given that he's been orthostatically symptomatic even before surgery - will give IV fluids, hold torsemide, and follow. Hgb 7.4 and since no overt sx of anemia, stable hemodynamics, and MICHELLE better explained from diuretic/heat predominantly induced contracted volume status, will hold off on transfusion for now, follow DVT proph - per ortho (asa bid, SCDs) Subjective No acute events over night. This morning, pt reports he is starting to have more pain at right shoulder, but tolerable. Pt has not gotten out of bed since surgery. Pt denies CP, SOB, dizziness, abdominal pain, N/V/D/C, numbness or tingling at extremities. Pt has baseline decreased sensation at bilateral feet due to neuropathy. Review of Systems Review of Systems: As per HPI Physical Exam Physical Exam: Gen: NAD, awake, laying in bed HENT: Normocephalic, atraumatic. External ear without deformities. Trachea midline, no thyromegaly Cardio: RRR, systolic murmur heard best right sternal boarder. Resp: CTAB, Equal bilateral chest rise, no increased work of breathing, Wearing NC with O2 at 2L GI: Mildly distended, soft, non tender, normoactive bowel sounds MSK: Moving all 3/4 extremities independently, Right shoulder in sling Skin: Dry, normal skin tone, Neuro: A & O x 3, normal affect. Limited sensation at bilateral feet. Results & Data Results & Data Vital Signs (Past 12 Hours) Vital Signs Temp Pulse Resp BP Pulse Ox O2 Del Method O2 Flow Rate 11/05/24 03:27 36.6 C 86 18 159/79 H 95 Room Air 11/05/24 00:11 36.8 C 73 18 156/83 H 96 Room Air 11/04/24 20:14 36.6 C 77 18 132/73 95 Nasal Cannula 2 11/04/24 19:13 36.7 C 79 18 136/80 98 Nasal Cannula 2 Resident Activity Tracking Resident Involvement: Resident Care Provided Care Provided: Adult Hospital Medicine (1) HTN (hypertension) Hypertension type: primary hypertension Qualified Code(s): I10 - Essential (primary) hypertension (2) DM type 2 (diabetes mellitus, type 2) Diabetes mellitus complication detail: with polyneuropathy Diabetes mellitus complication status: with neurologic complications Diabetes mellitus care home 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
[2024-11-05] MEDS: TORSEMIDE 10 MG TAB PO SCH (08:03)
[2024-11-05] MEDS: MULTIVITAMIN TAB PO SCH (08:03)
[2024-11-05] MEDS: METOPROLOL SUCC 25MG EXT REL TAB PO SCH (08:03)
[2024-11-05] MEDS: VERAPAMIL HCL 40 MG TAB PO SCH (08:03)
[2024-11-05] MEDS: ATORVASTATIN 40 MG TAB PO SCH (08:03)
[2024-11-05] MEDS: SERTRALINE HCL 100 MG TABLET PO SCH (08:04)
[2024-11-05] MEDS: TAMSULOSIN HCL 0.4 MG CAP PO SCH (08:06)
[2024-11-05] MEDS ORDERED: NON-FORMULARY MEDICATION (Insulin Glargine [Lantus Solostar U-100 Insulin] 100 unit/mL (3 SQ SCH (09:00)
[2024-11-05] MEDS: LANTUS PER UNIT CHARGE SC SCH (09:25)
[2024-11-05 10:35] LABS: Hypersegmented Neutrophils 1+
--- NOTE | 2024-11-05 13:04 | Orthopedic Progress Note ---
Date of Service November 05, 2024 Assessment & Plan (1) Status post reverse total arthroplasty of right shoulder: * Continue Current Treatment * Disposition: TBD, anticipate rehab/SNF * Daily treatment: Physical Therapy/ Occupational Therapy per protocol * Weight bearing status: NWB RUE * Continue to monitor for ABLA * Hgb 7.4, patient with chronic anemia, not symptomatic per baseline. Will monitor * Pain control * DVT prophylaxis, ASA * Office/hospital f/u 2 weeks for progress check and staple/suture removal * Discharge pending rehab placement Subjective .Active Problems: S/p right TSA POD 1 73 y/o male s/p right TSA. Doing well overall, pain managed and improved function. Denies fever/chills, chest pain/SOB, nausea/vomiting. Otherwise no complaints. Chronic anemia, unsteady working with PT/OT earlier this morning. Rehab recommended. Review of Systems All systems reviewed & are unremarkable except as noted in HPI & below. Physical Exam . * General: Alert and oriented, no acute distress * Constitutional: well-developed, well-nourished. * Respiratory: Normal respiratory effort, no distress * Gastrointestinal: No tenderness to palpation, no rigidity or guarding. * Skin: No rash or lesion. * Neurologic: Grossly normal * Musculoskeletal: Right shoulder surgical dressing CDI, not removed for exam. Otherwise no obvious deformity or overlying skin changes. Diffuse TTP upper arm and shoulder region. Otherwise no specific tenderness of upper arm, elbow, forearm, wrist/hand. AROM shoulder not assessed. AROM elbow, wrist/hand intact. Sensation intact radial/median/ulnar nerve distributions. Brisk capillary refill. Results & Data Results & Data Laboratory Results . Diagnostic Findings . PG Care Time/CCT Total # of Minutes Spent Total Time Spent with Patient: Total time spent is greater than 50% in coordination of care (as documented) at patient's floor/unit and/or counseling patient: Coding Diagnoses Status post reverse total arthroplasty of right shoulder Z96.611
--- NOTE | 2024-11-05 13:13 | Billing Data ---
Date of Service November 05, 2024 Coding Level of Care Code 72894 SUB INP/OBS CARE 3MIN
--- NOTE | 2024-11-05 13:14 | Billing Data ---
Date of Service November 05, 2024 Coding Level of Care Code 22210 INT INP/OBS CARE
[2024-11-05] MEDS: LACTATED RINGER'S 1,000 ML IV SCH (13:17)
[2024-11-06 06:38] LABS: Hematocrit (blood only) 27.4 % (42.0-52.0); Hemoglobin 8.3 g/dl (14.0-18.0); Mean Corpuscular Hemoglobin 24.8 pg (25.0-34.0); Mean Corpuscular Volume 81.8 fL (80.0-100.0); Platelet Count 297 K/uL (130-400); RDW Standard Deviation 46.3 fL (36.4-46.3); Red Blood Count 3.35 M/uL (4.70-6.10); White Blood Count 6.74 K/ul (4.8-10.8)
[2024-11-06 06:54] LABS: Anion Gap 8.0 (3-11); Blood Urea Nitrogen 32.0 mg/dl (6-23); Calcium 8.5 mg/dl (8.6-10.3); Carbon Dioxide 27.0 mmol/L (21-32); Chloride 105.0 mmol/L (98-107); Creatinine Clr Calc Pharmacy 57.5 ml/min; Glucose 72.0 mg/dl (70-99(Fasting)); Potassium 4.2 mmol/L (3.5-5.1); Sodium 140.0 mmol/L (136-145)
--- NOTE | 2024-11-06 08:43 | Orthopedic Progress Note ---
Date of Service November 06, 2024 Assessment & Plan (1) Status post reverse total arthroplasty of right shoulder: * Continue Current Treatment * Disposition: TBD, home vs SNF * Discussed discharge options, SNF/rehab recommended to patient however states he is feeling good per his baseline and would prefer home. Will reassess after PT today. Informed that SNF is for safety reasons but ultimately it is his decision, voices understanding. * Daily treatment: Physical Therapy/ Occupational Therapy per protocol * Weight bearing status: NWB RUE * Continue to monitor for ABLA * Hgb 8.3 from 7.4, patient with chronic anemia, not symptomatic per baseline. Will monitor * Pain control * DVT prophylaxis, ASA * Office/hospital f/u 2 weeks for progress check and staple/suture removal * Anticipate discharge today * Update: * Post PT/OT patient remains unsteady/dizzy with activity. Now interested in rehab placement. Authorization/placement pending Subjective .Active Problems: S/p right TSA POD 2 73 y/o male s/p right TSA. Doing well overall, pain managed and improved function. Denies fever/chills, chest pain/SOB, nausea/vomiting. Otherwise no complaints. Chronic anemia, Hgb improved this morning, feeling more steady on feet. SNF recommended, patient prefers to return home. Review of Systems All systems reviewed & are unremarkable except as noted in HPI & below. Physical Exam . * General: Alert and oriented, no acute distress * Constitutional: well-developed, well-nourished. * Respiratory: Normal respiratory effort, no distress * Gastrointestinal: No tenderness to palpation, no rigidity or guarding. * Skin: No rash or lesion. * Neurologic: Grossly normal * Musculoskeletal: Right shoulder surgical dressing CDI, not removed for exam, slight local ecchymosis. Otherwise no obvious deformity or overlying skin changes. Diffuse TTP upper arm and shoulder region. Otherwise no specific tenderness of upper arm, elbow, forearm, wrist/hand. AROM shoulder not assessed. AROM elbow, wrist/hand intact. Sensation intact radial/median/ulnar nerve distributions. Brisk capillary refill. Results & Data Results & Data Laboratory Results . Diagnostic Findings . PG Care Time/CCT Total # of Minutes Spent Total Time Spent with Patient: Total time spent is greater than 50% in coordination of care (as documented) at patient's floor/unit and/or counseling patient: Coding Diagnoses Status post reverse total arthroplasty of right shoulder Z96.611
[2024-11-06] MEDS: LANTUS PER UNIT CHARGE SC SCH (09:28)
--- NOTE | 2024-11-06 09:43 | Pharmacy Report ---
Pharmacy Glycemic Short Note 2 - Date of Service November 06, 2024 - Glycemic Short BSG Results (Last 24 hours): 11/05/24 11/05/24 11/05/24 11:30 16:38 20:08 Glucose POC Glucose 166 H 156 H 151 H 11/06/24 11/06/24 06:10 07:31 Glucose 72 POC Glucose 84 OUTPATIENT ANTIDIABETIC REGIMEN: * Lantus 30 units SC daily * Ozempic 2 mg SC weekly HbA1c: 6.8% (09/26/24) ASSESSMENT: 11/06 * Martin received 29 units of insulin yesterday (20 were basal) * Fasting BSG this AM below goal range, will decrease by 25% due to discontinuation of steroids and fasting BSG below goal range. * NovoLog loosened to a weight based stress of 2 due to discontinuation of steroids 11/04 * SD is a 73 year old male POD #0 s/p right reverse total shoulder * Received 10 mg IV dexamethasone in OR and is ordered dexamethasone 8 mg PO x 1 on POD #1 * Preop blood sugar of 78 mg/dL, postop blood sugars of 161 and 195 mg/dL * Blood sugar elevation likely due to IV steroids and surgical stress * Will be aggressive w/ Novolog, but slightly conservative with basal given fasting blood sugar of 78 mg/dL PLAN FOR INPATIENT GLYCEMIC CONTROL: * Basal insulin * Lantus 15 units SQ daily * Bolus insulin * NovoLog per scale ACHS or Q6hrs while NPO * Goal Range: Low 110 mg/dL - High 140 mg/dL * Correction Factor: 25 mg/dL/unit * Nutritional / Prandial insulin per carb ratio of 1 unit per 8 grams CHO consumed
[2024-11-06 14:06] VITALS: PULSE 63; RESP 16; TEMP 98.4; O2SAT 96
[2024-11-06] MEDS: MAGNESIUM HYDROXIDE SUSP 30 ML UDC PO PRN (15:02)
--- NOTE | 2024-11-06 15:12 | Hospitalist Progress Note ---
Date of Service November 06, 2024 Assessment & Plan (1) HTN (hypertension): (2) DM type 2 (diabetes mellitus, type 2): (3) Chronic kidney disease (CKD), stage III (moderate): (4) Chronic anemia: (5) Anxiety: (6) Diabetic peripheral neuropathy associated with type 2 diabetes mellitus: (7) Rotator cuff arthropathy of right shoulder: Plan Pt is a 73 yo male with PMH of DMT2 with basal insulin and GLP-1 control, HTN, CKD stage 3, pulmonary HTN, aortic stenosis, chronic anemia, PMR, diabetic neuropathy, and HENRIK who underwent Right reverse TSA this afternoon with Dr. Dee. Pt has complex medical history as well as history of complications after previous orthopedic surgeries including V-fib with cardiac arrest and significant blood loss anemia. # Right reverse TSA - Pain management per Dr. Dee - PT/OT FOllowing, recommended SNF # DMT2 Controlled at home with basal insulin and GLP-1. Last A1c 6.8% on 09/26/24 - BSG ACHS - Continue Glargine 30u qd - Continue Aspart per sliding scale # Pulmonary HTN/HFpEF/Hx of post surgical arrhythmia and arrest - Continue with home meds of metoprolol 25mg qd, spironolactone 12.5 mg qd,and verapamil 120 mg q2d - Recommend holding home torsemide dizziness upon standing and with walking #Chronic anemia History of post surgical blood loss anemia after TKA in 2023. Pt required 2 units pRBCs. Last CBC in 09/26/24 shows Hbg at 9.2. Pt currently reports no symptoms of anemia - Hbg is 8.3 this AM, - Monitor with AM labs # CKD stage 3 Last BMP from 09/26/24 shows Cr of 1.5, BUN 29, eGFR 47.93 - Cr down trending from 1.56 to 1.38 today - Holding torsemide, recommend holding at discharge from hospital until follow up with PCP - Renal dosing of meds and avoiding nephrotoxic meds - Repeat BMP in AM labs Chronic conditions: Urinary retention- continue tamsulosin 0.8mg Anxiety- continue sertraline 150mg GERD- Continue protonix 40mg Neuropathy- continue pregabalin 100 mg TID Dispo: surg Diet: Low carb DM2 Code: Full Code DVT prophylaxis: SCDs Admission and Anticipated Discharge Date Admission Date: November 05, 2024 Supervising Physician Co-Signing Physician Notes I personally examined the patient and verified all carrasquillo points of history and exam, discussed case, and agree with decision making with Dr Lombardo no new complaints although still feeling weak and shaky/dizzy when standing (not that different than prior to admission, possibly slightly better) vitals noted nad heent nc at mmm breathing unlabored no accessory muscles good effort skin no rashes no pallor or icterus s/p shoulder replacement, DM2, prior arrythmias - overall appearing stable. as above. MICHELLE/dehydration - likely acute from blood loss resulting in acute blood loss anemia not unexpected given the procedure, but this sounds to be superimposed on chronic / subacute hypovolemia likely from baseline diuretic use and recent hot weather - given that he's been orthostatically symptomatic even before surgery - improved w IV fluids. hold diuretic until clearly euvolemic. would have PCP/cardiology (who know him better) consider if diuretic should be dc'd/only used prn as outpt acute blood loss anemia - not unexpected w surgery. hemodynamically stable. no need for transfusion DVT proph - per ortho (asa bid, SCDs) hospitalist team will sign off at this time, will be available if we can be of any assistance, don't hesitate to call. stable for SNF, would hold torsemide until Cr has returned to normal and/or lightheadedness has improved - then have PCP/primary sfdc consultant consider restart vs dc except for prn Subjective No acute events over night. This morning, pt reports he is starting to have more pain at right shoulder, but tolerable. Pt was sitting at EOB at time of exam. Pt reporting mild dizziness. Pt states that dizziness increased with walking with PT yesterday. Dizziness goes away when he is laying down. Pt denies CP, SOB, abdominal pain, N/V/D/C, numbness or tingling at extremities. Pt has baseline decreased sensation at bilateral feet due to neuropathy. Review of Systems Review of Systems: As per HPI Physical Exam Physical Exam: Gen: NAD, awake, laying in bed HENT: Normocephalic, atraumatic. External ear without deformities. Trachea midline, no thyromegaly Cardio: RRR, systolic murmur heard best right sternal boarder. Resp: CTAB, no increased work of breathing, No longer using supplemental O2 GI: Mildly distended, soft, non tender, normoactive bowel sounds MSK: Moving all 3/4 extremities independently, Right shoulder in sling Skin: Dry, normal skin tone, Neuro: A & O x 3, normal affect. Limited sensation at bilateral feet. Results & Data Results & Data Vital Signs (Past 12 Hours) Vital Signs Temp Pulse Resp BP Pulse Ox O2 Del Method 11/06/24 14:02 36.9 C 63 16 127/75 96 Room Air 11/06/24 12:37 36.6 C 67 17 149/79 H 97 Room Air 11/06/24 08:07 36.9 C 76 18 139/72 95 Room Air Resident Activity Tracking Resident Involvement: Resident Care Provided Care Provided: Adult Hospital Medicine (1) HTN (hypertension) Hypertension type: primary hypertension Qualified Code(s): I10 - Essential (primary) hypertension (2) DM type 2 (diabetes mellitus, type 2) Diabetes mellitus complication detail: with polyneuropathy Diabetes mellitus complication status: with neurologic complications Diabetes mellitus half-way insulin use: with termite treater helper use Qualified Code(s): E11.42 - Type 2 diabetes mellitus with diabetic polyneuropathy; Z79.4 - terminal press operator (current) use of insulin
[2024-11-06] MEDS ORDERED: POLYETHYLENE (MIRALAX) 17 GM PACK PO PRN (15:24)
[2024-11-06 16:22] VITALS: BP 126/78
--- NOTE | 2024-11-06 16:24 | Billing Data ---
Date of Service November 06, 2024 Coding Level of Care Code 28101 SUB INP/OBS CARE 3MIN
--- NOTE | 2024-11-08 08:43 | Discharge Summary ---
Date of Service November 08, 2024 Admission HPI (Per Admitting) Dennis is a pleasant 73-year-old male who is well known to me. He has been dealing with chronic worsening bilateral shoulder pain. He has poor motion of his shoulders. It is hurting more and more. He has trouble doing anything away from his body or up over head. 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 After failed conservative treatment, he has elected to proceed with a right reverse shoulder arthroplasty. Admission Exam (Per Admitting) On physical exam of the right shoulder, he has decreased range of motion with only about 60 degrees of forward elevation and 60 degrees of abduction. He is crepitus throughout.. Principal Diagnosis Same as "Discharge Diagnosis" noted below under Discharge Instructions. Discharge Exam . * General: Alert and oriented, no acute distress * Constitutional: well-developed, well-nourished. * Respiratory: Normal respiratory effort, no distress * Gastrointestinal: No tenderness to palpation, no rigidity or guarding. * Skin: No rash or lesion. * Neurologic: Grossly normal * Musculoskeletal: Right shoulder surgical dressing CDI, not removed for exam, slight local ecchymosis. Otherwise no obvious deformity or overlying skin changes. Diffuse TTP upper arm and shoulder region. Otherwise no specific tenderness of upper arm, elbow, forearm, wrist/hand. AROM shoulder not assessed. AROM elbow, wrist/hand intact. Sensation intact radial/median/ulnar nerve distributions. Brisk capillary refill. Discharge Data Consultations 11/04/24 16:28 Consult Hospitalist Routine Procedures Performed Operation Date: 11/04/24 12:00 Actual Procedures p Right Reverse Total Shoulder Arthroplasty(Right) - Arian Dee DO Ordered Studies 11/04/24 05:00 US - OR guided needle placemen Routine Hospital Course (1) Status post reverse total arthroplasty of right shoulder: Patient presents to hospital 11/04/2024 for elective right reverse procedure completed without complication. Postoperatively patient was admitted to floor for total shoulder replacement. Observation, pain control, PT/OT evaluation, discharge planning. Patient with chronic anemia, postoperatively was noted to have a drop in hemoglobin, this was monitored closely and returned to stable levels without further intervention. Patient unsteady on feet with PT/OT, SNF recommended to which patient was agreeable. Following placement patient was discharged to SNF. All questions answered. Patient to follow-up with Dr. Dee team as scheduled. PG Care Time/CCT Total # of Minutes Spent Total Time Spent with Patient: Total time spent is greater than 50% in coordination of care (as documented) at patient's floor/unit and/or counseling patient: Discharge Plan Discharge Items Patient Disposition: Transfer [facility] Reason For Visit: Right Shoulder Arthritis Discharge Diagnosis: s/p right reverse total shoulder arthroplasty Activity: Per Instructions section Non-emergency contact: Surgeon Call non-emergency contact if: your symptoms worsen, your temperature is above 101.5, your wound has increased redness and your wound has increased drainage Follow-up/Referrals: Matilde Mauricio DO [Primary Care Provider] - Diet: Carb Consistent or DM2 and Heart Healthy Addtl Attending Provider Instructions: Activity and Therapy Recommendations: * If you are using [facility] then therapy will be provided at your home until they feel you have accomplished all of your goals. * If you are using [facility] then Physical Therapy will be provided until they feel you are ready to start Outpatient Physical Therapy. * If you are not using home therapy then Outpatient Physical Therapy should start about 3-5 days from your day of surgery. Therapy will last about 8-12 weeks * Wear your sling for 3 weeks, unless otherwise instructed. You may remove your sling to shower and to dress, but otherwise, you should be in your sling at all times, including while sleeping * The shoulder replacement is very stable and you can use your hand while in the sling * You were shown a series of exercises in the hospital. Do these exercises daily including the exercises you were shown in physical therapy. Medications: * Narcotic You will likely be sent home from the hospital with a prescription for the narcotic pain medication that worked best throughout your stay. * Cefadroxil -take the antibiotic twice a day for 10 days to help prevent infection. * Other medications may be prescribed for specific circumstances. If you have any questions, please call the office at . * Resume previous home medications unless otherwise instructed Dressing Care: Leave the Silverlon dressing in place for 7 days. After 7 days you may remove the dressing. If the incision is not draining then you may leave the yannick open to air. If there is a little bit of drainage or if the yannick are getting stuck on your clothing then cover the incision with a dry dressing. The yannick will be removed at your 2 week follow-up appointment. Showering: You may shower with the Silverlon dressing in place. Do not let the shower spray hit the dressing directly. Pat the Silverlon dressing dry. If the dressing becomes wet underneath, then simply remove the dressing. Keep the incision dry until you are 7 days out from the day of surgery. After 7 days you may remove the Silverlon dressing and shower with the yannick exposed. Let soapy water run over the yannick and pat them dry. Do not scrub or soak the incision. Diet: You may resume your previous diet. Things To Watch For: * Drainage from the incision site that occurs more than one week after your surgery. * Increased redness at the incision site. * Fever above 102 degrees Fahrenheit. * Unusual chest pain or shortness of breath. * Call [facility] at with any of the above problems Follow-Up Visit: Follow-up with Dr. Dee's office 2-3 weeks after your day of surgery. We will remove your yannick and answer any questions. If you have any additional questions or concerns, Dr Dee is usually in the office at the same time and will be available An appointment was probably scheduled when you signed-up for surgery in the office. If you have any questions call More detailed instructions as well as Frequently Asked Questions were provided in a folder by our office when you signed-up for surgery. Please review these instructions when you get home. If you have any further questions or concerns, please feel free to call the office at [phone] Addtl Supervisor Tower Provider Instructions: Your medical team is recommending that you hold your home dose of Torsemide 10mg until you see your PCP. At that time, you can discuss further use and management. We are also recommending that you maintain good hydration by drinking 60-80 oz of liquids daily and try to incorporate more water. Follow up with your primary care physician in 7-10 days. Follow up with orthopedics as directed Pending Studies at Discharge: No Stand-Alone Forms: My [facility] Skilled Items Patient informed of condition?: No DNR: No Discharge Level of Care: Acute rehab Communicable Disease: No Discharge Prognosis: Stable Lines: None Urinary Catheter: No Medications and DC Order Prescriptions: New cefadroxil 500 mg capsule 500 mg PO BID 10 Days Qty: 20 0RF oxycodone 5 mg tablet 5 mg PO Q6H PRN (Reason: pain) Qty: 30 0RF Senokot Extra Strength 17.2 mg tablet 17.2 mg PO HS PRN (Reason: constipation) Qty: 14 0RF Continued (DME) CPAP Machine Misc See Rx Instructions .ROUTE .MEDSUPPLY Qty: 1 0RF Rx Instructions: 8 cmH2O, mask fit to patient comfort, heated humidification, compliance download capabilities, DME: [facility] spironolactone 25 mg Tablet 12.5 mg PO QAM Hold Instructions: Resume on 09/10/23. RESUME ONCE BLOOD PRESSURE IS CONSISTENTLY STABLE, NO HYPOTENSION. fluocinonide 0.05 % Ointment 1 applic TOPICAL BID PRN (Reason: Rash) lorazepam 0.5 mg Tablet 0.5 mg PO DAILY PRN (Reason: Anxiety) pantoprazole [Protonix] 40 mg tablet,delayed release (DR/EC) 40 mg PO QAM pregabalin [Lyrica] 100 mg capsule 100 mg PO TID magnesium hydroxide [Milk of Magnesia] 400 mg/5 mL Suspension 30 ml PO Q6H PRN (Reason: constipation) Qty: 355 0RF atorvastatin 40 mg Tablet 40 mg PO QAM 30 Days Qty: 30 0RF acetaminophen 500 mg Tablet 1,000 mg PO Q8H PRN (Reason: Pain) Qty: 20 0RF verapamil 120 mg Tablet 120 mg PO Q2D 30 Days Qty: 15 0RF Patient Comments: takes in the am tamsulosin 0.4 mg capsule 0.8 mg PO QAM 30 Days Qty: 30 0RF folic acid 1 mg tablet 1 mg PO QAM 30 Days Qty: 30 0RF metoprolol succinate [Toprol XL] 25 mg Tablet Extended Release 24 Hr 25 mg PO QAM 30 Days Qty: 30 0RF polyethylene glycol 3350 [Miralax] 17 gram/dose Powder 17 g PO DAILY PRN (Reason: Constipation) 30 Days Qty: 119 2RF insulin glargine [Lantus Solostar U-100 Insulin] 100 unit/mL (3 mL) insulin pen 30 unit SUBCUT QAM 30 Days Qty: 9 2RF Rx Instructions: 30-45 Units depending on blood sugar cholecalciferol (vitamin D3) 2,000 unit Tablet 2,000 unit PO QAM 30 Days Qty: 30 0RF cyanocobalamin (vitamin B-12) [Vitamin B-12] 5,000 mcg Tablet, Sublingual 5,000 mcg SUBLINGUAL QAM 30 Days Qty: 30 0RF sertraline 150 mg Capsule 150 mg PO QAM 30 Days Qty: 30 0RF Ozempic 2 mg/dose (8 mg/3 mL) Pen Injector 2 mg SUBCUT WK Discontinued torsemide 10 mg Tablet 10 mg PO QAM hydrocodone-acetaminophen 10-325 mg Tablet 1 tab PO Q6H PRN (Reason: Pain) Discharge Orders: Discharge Order (Routine); Ordered 11/06/24 Ordered By: Ray Gavin Admission Data Admit Date/Time: 11/05/24 18:15 Attending Provider: Arian Dee Admit Provider: Arian Dee Primary Care Provider: Matilde Mauricio Other Providers: [facility]; [facility] Archibald Christina Other Interventions: Discharge Summary Assessment (RN) Last Done: 11/06/24 16:21
== END 2024-11-06 16:56 | DRG 483 ==
LOC: 3E 10:04 → ASU 10:04